=== PATIENT | male | born 1965 | race Caucasian/White ===

== ENCOUNTER 2021-01-27 17:19 | Inpatient (IN) | payer OTHER, SELFPAY ==
[2021-01-27] VITALS (25 sets, daily range): BP systolic 48–152; BP diastolic 12–108; PULSE 80–156; RESP 16–66; TEMP 36.6–39.2; O2SAT 66–100; BMI 29.1; BMI 28.3
[2021-01-27] MEDS: Etomidate 20 MG/10 ML Vial IV (17:27)
[2021-01-27] MEDS: Succinylcholine Chloride 200 MG/10 ML Vial 100 MG IV (17:27)
[2021-01-27] MEDS: Midazolam 5 MG/ML Syringe IV (17:34)
[2021-01-27] MEDS: Rocuronium Bromide 50 MG/5 ML Vial IV ×2 (17:35→19:15)
--- NOTE | 2021-01-27 17:50 | NURSING ---
NO OLD EKGS
--- NOTE | 2021-01-27 17:51 | EKG12_ITS ---
Test Reason : Blood Pressure : / mmHG Vent. Rate : 155 BPM Atrial Rate : 155 BPM P-R Int : 104 ms QRS Dur : 080 ms QT Int : 322 ms P-R-T Axes : 000 046 054 degrees QTc Int : 517 ms Sinus tachycardia with short MN Nonspecific ST and T wave abnormality Abnormal ECG Confirmed by LIBERTY WILSON, PEGGY ([id number]), commissioning editor FELIX MILES ([id number]) on 01/30/2021 9:35:55 AM Referred By: FABIO Confirmed By:PEGGY KOENIG MD
[2021-01-27 18:12] LABS: Absolute Lymphocyte Count 0.98 X10^3/uL (0.83-4.51); Absolute Neutrophil Count 22.5 X10^3/uL (2.0-7.7); Basophil# 0.09 X10^3/uL; Basophil% 0.4 % (0-1); Hematocrit 51.3 % (40-54); Hemoglobin 16.6 g/dL (13.0-16.5); Lymphocyte # 0.98 X10^3/ul (0.83-4.51); Lymphocyte % 3.9 % (19-41); Mean Corp Hgb Conc 32.4 g/dL (32-36); Mean Corpuscular Hgb 33.2 pg (27.0-32.0); Mean Corpuscular Volume 102.6 fL (80-94); Mean Platelet Vol. 10.4 fl (6.2-12.0); Monocyte# 0.86 X10^3/uL; Monocyte% 3.4 % (0-10); NRBC Flagged by Analyzer 0.4 % (0-5); Neutrophil % 89.5 % (47-70); POSITIVE COUNT YES; POSITIVE DIFFERENTIAL YES; Platelet Count 473 K/mm3 (150-450); RBC Distribution Width CV 12.3 % (11.6-14.6); White Blood Count 25.1 K/mm3 (4.4-11.0)
[2021-01-27 18:14] LABS: Differential Indicated SCAN CRITERIA MET
--- NOTE | 2021-01-27 18:15 | RAD_ITS ---
STUDY: X-RAY CHEST REASON FOR EXAM: Male, 55 years old. cough TECHNIQUE: AP COMPARISON: None. FINDINGS: Endotracheal tube present with the tip terminating 1.7 cm above the bing. Esophagogastric tube extends to the upper abdomen/stomach. Right jugular central venous catheter with tip overlying the cavoatrial junction. Patchy interstitial and groundglass opacities and multiple pulmonary lobes. There is no demonstrated pleural abnormality. Normal size heart. Normal mediastinum and nadia. Normal visualized pulmonary arteries. Normal visualized aortic arch and descending thoracic aorta. No acute bony process. There is no demonstrated abnormality of the visualized soft tissue structures of the upper abdomen. RAD/Chest 1 View (Portable) IMPRESSION: Support lines and tubes, as above. Multilobar pulmonary infiltrates. Electronically Signed: Nav Hernandez MD (Brooks) at 18:27 EDT , Service support ,
--- NOTE | 2021-01-27 18:16 | EDS_ITS ---
HPI History of Present Illness Chief Complaint: Shortness of Breath Informant: spouse/S.O. and EMS Narrative Narrative: 55-year-old male presenting to the emergency department in respiratory failure. He is reportedly on day 12 of COVID-19 infection. He tested positive at [facility] was called today for worsening shortness of breath. Patient cannot provide history. He is unvaccinated per his [facility] Medical History (Updated 01/27/21 @ 18:[address] Juanita Oseguera MD) High cholesterol HTN (hypertension) Non-smoker Obesity Home Medications aspirin [Aspir-Low] 81 mg PO DAILY 01/27/21 [History Last Taken Unknown] atorvastatin 40 mg PO DAILY 01/27/21 [History Last Taken 01/27/21] lisinopril 10 mg PO DAILY 01/27/21 [History Last Taken 01/27/21] Allergy/AdvReac Type Severity Reaction Status Date / Time No Known Allergies Allergy Verified 01/27/21 17:40 Family History (Updated 01/27/21 @ 18:[address] Juanita Oseguera MD) Mother Diabetes Father Diabetes Surgical History (Updated 01/27/21 @ 18:[address] Juanita Oseguera MD) S/P correction of deviated nasal septum Social History (Updated 01/27/21 @ 18:[address] Juanita Oseguera MD) household members: spouse Smoking Status: Never smoker alcohol intake: never substance use type: does not use ROS ROS ED ROS Narrative Review of systems is briefly obtained by the Review of Systems ROS Unobtainable: due to mental status Constitutional Constitutional ED: Reports chills, fever(s) and sweats Respiratory/Chest Respiratory/Chest: Reports cough, dyspnea and dyspnea on exertion Gastrointestinal Gastrointestinal: Reports diarrhea and nausea Musculoskeletal Musculoskeletal: Reports myalgias Neurologic Neurologic: Reports headache(s) EXAM Physical Exam Narrative Exam Narrative: Patient is in obvious respiratory failure. He is breathing approximately 60 times a minute and is 51% on a nonrebreather Const Vital Signs: 01/27/21 17:20 01/27/21 17:26 01/27/21 17:33 Temperature 97.8 F Temperature Source Temporal Pulse Rate 145 H 142 H Respiratory Rate 66 H 27 H Respiratory Depth Shallow Respiratory Pattern Tachypnea Blood Pressure 116/80 Blood Pressure Mean 92 Pulse Ox 66 81 Oxygen Delivery Method Non-Rebreather Mechanical Ventilator Oxygen Flow Rate (L/min) 15 01/27/21 17:40 01/27/21 18:18 Temperature 102.6 F H Temperature Source Core Pulse Rate 149 H 156 H Respiratory Rate 20 H 20 H Respiratory Depth Respiratory Pattern Tachypnea Blood Pressure 125/104 H 118/70 Blood Pressure Mean 111 86 Pulse Ox 79 82 Oxygen Delivery Method Mechanical Ventilator Mechanical Ventilator Oxygen Flow Rate (L/min) Positive well nourished, well developed and obese General Appearance ED: well developed Nutritional Appearance: obese HEENT Reports normocephalic, head/scalp atraumatic, TM's clear and dry mucous membranes Tympanic Membrane ED: Yes TM's clear Mouth ED: Yes dry mucous membranes Mouth: dry mucous membranes Eyes PERRL and EOMs intact bilaterally Neck no lymphadenopathy, supple and no JVD Resp clear to auscultation bilaterally Resp Narrative: Acute respiratory failure Effort and Inspection: retractions Cardio regular rate and no murmurs Rate: tachycardic GI normal to inspection, nondistended, normoactive bowel sounds and non-tender Palpation: soft Back/Spine no CVA tenderness and normal ROM Extremity General Extremety ED: Negative for edema General Extremity: Negative for edema Neuro oriented x3 and CN's II-XII intact bilaterally Sensorium / Orientation: alert Motor Exam: strength 5/5 throughout Psych Mood & Affect: tearful; Negative for depressed Skin no wounds Skin Narrative: Patient has mottling of his abdomen legs and arms MDM MDM MDM Narrative Medical decision making narrative: IV was established. Patient underwent rapid sequence intubation using etomidate and succinylcholine. An 8-0 endotracheal tu be was placed on the first attempt without any difficulty and secured in place at 24 cm. Bilateral breath sounds and good color change. An OG tube was placed. Patient received Versed and rocuronium. The right neck was prepped for central line placement. Using the modified cylinder technique a triple-lumen central line was placed on the first attempt without any difficulty and secured into place. My interpretation of the chest x-ray confirms adequate placement of the central line OG tube and endotracheal tube. Noted diffuse bilateral infiltrates. CTA of the chest demonstrates no pulmonary embolism but multifocal infiltrates. ABG shows a pH of 7.296 PCO2 41.8 PO2 52.2 bicarb 20.4. This is on FiO2 of 100% White count is 25.1 hemoglobin 16.6 platelet count is 473. Patient was started on propofol and fentanyl for sedation. Patient received IV Decadron and Lasix. Tylenol was given for fever. Patient became hypotensive as we titrated the propofol and it was stopped. I added Precedex and continued to increase the fentanyl. Case was discussed with hospitalist and Dr. Camacho. Patient is admitted into the ICU. Lab Data Labs: Laboratory Results - last 24 hr 01/27/21 01/27/21 01/27/21 17:25 17:25 17:25 WBC 25.1 H RBC 5.00 Hgb 16.6 H Hct 51.3 MCV 102.6 H MCH 33.2 H MCHC 32.4 RDW Std Deviation 47.0 H RDW Coeff of Blanca 12.3 Plt Count 473 H MPV 10.4 Immature Gran % (Auto) 2.800 H Neut % (Auto) 89.5 H Lymph % (Auto) 3.9 L [place] % (Auto) 3.4 Eos % (Auto) 0.0 Baso % (Auto) 0.4 Absolute Neuts (auto) 22.5 H Absolute Lymphs (auto) 0.98 Nucleated RBC % 0.4 Differential Comment SCANNED Diff Path Review August foll Fibrinogen 884 H D-Dimer Quant (PE/DVT) 6.85 H* Sodium 140 Potassium 3.9 Chloride 95 L Carbon Dioxide 17.0 L Anion Gap 28 H BUN 28 H Creatinine 2.23 H Estim Creat Clear Calc 39.56 Est GFR (MDRD) Af Amer 40 L Est GFR (MDRD) Non-Af 33 L BUN/Creatinine Ratio 12.6 Glucose 309 H Lactic Acid Calcium 9.6 Total Bilirubin 0.70 AST 63 H ALT TNP Alkaline Phosphatase 88 Lactate Dehydrogenase 915 H Total Creatine Kinase 173 Troponin I High Sens 374 H* C-React Prot Ext Range 167.00 H B-Natriuretic Peptide Total Protein 8.9 H Albumin 2.8 L Globulin 6.1 H Albumin/Globulin Ratio 0.5 L Procalcitonin 01/27/21 01/27/21 01/27/21 17:25 17:25 17:25 WBC RBC Hgb Hct MCV MCH MCHC RDW Std Deviation RDW Coeff of Blanca Plt Count MPV Immature Gran % (Auto) Neut % (Auto) Lymph % (Auto) [place] % (Auto) Eos % (Auto) Baso % (Auto) Absolute Neuts (auto) Absolute Lymphs (auto) Nucleated RBC % Differential Comment Diff Path Review Fibrinogen D-Dimer Quant (PE/DVT) Sodium Potassium Chloride Carbon Dioxide Anion Gap BUN Creatinine Estim Creat Clear Calc Est GFR (MDRD) Af Amer Est GFR (MDRD) Non-Af BUN/Creatinine Ratio Glucose Lactic Acid 14.7 H* Calcium Total Bilirubin AST ALT Alkaline Phosphatase Lactate Dehydrogenase Total Creatine Kinase Troponin I High Sens C-React Prot Ext Range B-Natriuretic Peptide 95.8 Total Protein Albumin Globulin Albumin/Globulin Ratio Procalcitonin 0.27 H ABG Data ABG results: ABG 01/27/21 18:21 Specimen Type ART Sample Site L Radial pH 7.30 L Bicarbonate Actual 20.4 L Total CO2 22 Base Excess -6 L O2 Saturation 83 L O2 % 100 ABG pCO2 41.8 ABG pO2 52 L Patrick Test Positive Respiration Rate 20 O2 Delivery Device Adult Vent Vent Mode AC Tidal Volume 450 POC PEEP 10 Radiography Diagnostic Testing: Clinical Impression(s) from Imaging Studies Chest X-Ray 01/27/21 18:15 IMPRESSION: Support lines and tubes, as above. Multilobar pulmonary infiltrates. Electronically Signed: Nav Hernandez MD (Brooks) at 18:27 EDT , Service support , EKG Initial EKG: Attestation: I personally reviewed and interpreted this EKG as follows: Comments: Sinus tachycardia with a ventricular rate of 155 bpm Discharge Plan [facility] Dis[facility] Date/Time: 01/27/21 20:15
[2021-01-27 18:26] LABS: Allen Test Positive; Base Excess -6 mmol/L (-2 to +2); Bicarbonate 20.4 mmol/L (22-26); Blood Gas Specimen Type ART; FI02 100; Mode AC; O2 Delivery Device Adult Vent; PEEP 10; PO2 52 mmHG (75-100); RR 20; SITE L Radial; SO2 83 % (95-99); Total Carbon Dioxide 22 mmol/L; Vt 450; pCO2 41.8 mmHg (35-45)
--- NOTE | 2021-01-27 18:26 | PCM.HP.STD ---
HPI - General General Date of Admission: 01/27/21 Date of Service: 01/27/21 Chief Complaint: COVID sxs x 12 days, worsening dyspnea, hypoxia. HPI Narrative The patient is a 55 y/o M w/ PMHx: Obesity, HTN, HLD who presents to the [facility] ED on 01/27/21 with history of onset Covid symptoms 12 days prior with fever, chills, significant diarrhea without any nausea, emesis or abdominal complaints, cough and shortness of breath as well as headache progressively worsening with diagnosis at [facility] on 01/16/2021. Patient is unvaccinated Covid status. Patient's was also ill and she notes this was prior to his onset and she has recovered. Immediately upon ED presentation he was significantly mottled and required emergent intubation. Work-up in the ED included T 97.8, heart rate initially 145, BP 116/80, respiratory rate 66, 66% on a nonrebreather with emergent intubation as noted, CBC with WC 25.1, hemoglobin 16.6, platelet 473 with left shift, pending fibrinogen, D-dimer, CPK, CRP, procalcitonin, LDH, cardiac troponin, BNP, as well as CMP upon evaluation, chest x-ray with significant bilateral pulmonary infiltrates, ABG being obtained post intubation, blood culture x2 pending per ED, EKG additionally being obtained. In the ED patient ministered Decadron 10 mg IV x1, etomidate, succinylcholine and Versed for intubation, Lasix 40 mg IV x1 per discussion with hospital service as well as initiation on propofol and fentanyl drip as well as dosing with rocuronium. [facility] Medical History (Updated 01/27/21 @ 18:[address] Juanita Oseguera MD) High cholesterol HTN (hypertension) Obesity Home Medications atorvastatin 40 mg PO DAILY 01/27/21 [History Last Taken Unknown] lisinopril 10 mg PO DAILY 01/27/21 [History Last Taken Unknown] Allergy/AdvReac Type Severity Reaction Status Date / Time No Known Allergies Allergy Verified 01/27/21 17:40 Family History (Updated 01/27/21 @ 18:[address] Juanita Oseguera MD) Mother Diabetes Father Diabetes Surgical History (Updated 01/27/21 @ 18:[address] Juanita Oseguera MD) S/P correction of deviated nasal septum Social History (Updated 01/27/21 @ 18:[address] Juanita Oseguera MD) household members: spouse Smoking Status: Never smoker alcohol intake: never substance use type: does not use ROS ROS Narrative Unable to obtain ROS secondary to intubated status however does report recent fever, chills, significant diarrhea, dyspnea, cough and headaches. Vital Signs Vital Signs Vital Signs: 01/27/21 17:20 01/27/21 17:26 01/27/21 17:33 Temperature 97.8 F Temperature Source Temporal Pulse Rate 145 H 142 H Respiratory Rate 66 H 27 H Respiratory Depth Shallow Respiratory Pattern Tachypnea Blood Pressure 116/80 Blood Pressure Mean 92 Pulse Ox 66 81 Oxygen Delivery Method Non-Rebreather Mechanical Ventilator Oxygen Flow Rate (L/min) 15 01/27/21 17:40 01/27/21 18:18 Temperature Temperature Source Pulse Rate 149 H 156 H Respiratory Rate 20 H 20 H Respiratory Depth Respiratory Pattern Tachypnea Blood Pressure 125/104 H Blood Pressure Mean 111 Pulse Ox 79 82 Oxygen Delivery Method Mechanical Ventilator Oxygen Flow Rate (L/min) Weight Weight: 203 lb 4.259 oz Body Mass Index (BMI) 29.1 Physical Exam Narrative Physical Examination: General: Patient sedated, intubated, central line being placed, still hypoxia despite recent intubation with oxygenation in the 80s. Skin: Normal color, normal turgor, no icterus, no cyanosis. HEENT: AT/NC, EOM unable to be assessed given intubated and sedated status, PERRLA, dry MM, intubated, no carotid bruits or JVD noted. Lungs: Bilateral symmetric rise, increased respiratory rate, still noted hypoxia with oxygenation in the 80s despite recent intubation, no rhonchi or wheezing. Heart: Tachycardic with regular rhythm; no gallop, rub audible. Abdomen: Soft, obese, NTTP, no obvious distention, significantly hyperactive bowel sounds, no HSM. Extremities: No cyanosis, clubbing, or edema. Neurological: Patient sedated, intubated, central line being placed, still hypoxia despite recent intubation with oxygenation in the 80s, cognitive function not baseline intact; pupils equally reactive to light and accommodation, cranial nerves unable to be assessed given sedated and intubated status, strength accordingly severely global decreased. Psychiatric: Affect appears flat, intubated, sedated no acute evidence of depressive or anxiety feelings. Results Lab / Micro Data Result Diagrams: 01/27/21 17:25 01/27/21 17:25 Labs: Laboratory Results - last 24 hr 01/27/21 17:25: WBC 25.1 H, RBC 5.00, Hgb 16.6 H, Hct 51.3, MCV 102.6 H, MCH 33.2 H, MCHC 32.4, RDW Std Deviation 47.0 H, RDW Coeff of Blanca 12.3, Plt Count 473 H, MPV 10.4, Immature Gran % (Auto) 2.800 H, Neut % (Auto) 89.5 H, Lymph % (Auto) 3.9 L, [place] % (Auto) 3.4, Eos % (Auto) 0.0, Baso % (Auto) 0.4, Absolute Neuts (auto) 22.5 H, Absolute Lymphs (auto) 0.98, Nucleated RBC % 0.4 Assessment & Plan Assessment/Plan (1) Acute respiratory failure with hypoxia: (2) Pneumonia due to COVID-19 virus: PLAN: The patient is a 55 y/o M w/ PMHx: Obesity, HTN, HLD who presents to the [facility] ED on 01/27/21 with history of onset Covid symptoms 12 days prior with fever, chills, significant diarrhea without any nausea, emesis or abdominal complaints, cough and shortness of breath as well as headache progressively worsening with diagnosis at [facility] on 01/16/2021 emergently intubated upon arrival in the ED. 1. Acute Hypoxic Respiratory Failure secondary to Acute Bilateral Pneumonia secondary to Acute Viral Syndrome, COVID-19: We will admit to the ICU, continue intubated and sedated status, will consult kettle skimmer as well as infectious disease for consideration of bar sitting up, awaiting pending ED labs as noted and may potentially need CTPA prior to transition to the ICU, patient not candidate for remdesivir given timeline, will continue IV Decadron x10 doses, additionally will obtain sputum culture, respiratory viral panel and urine antigens, continue supportive care including q 2 hour turning including prone given no prone bed availability and judicious hydration, closely monitor for worsening status for ARDS and multiorgan failure. Given significant leukocytosis will transiently placed on Zosyn and Vanco with MRSA screen but de-escalate if all labs and further assessment show no demonstration of superimposed bacterial infection. 2. Hypertension: Given patient lower BPs following sedation we will hold patient oral regimen, in the interim will have PRN hydralazine. 3. Hyperlipidemia: We will hold statin therapy is awaiting CMP and given acute presentation #1 may have elevated LFTs/bilirubin, add if appropriate. 4. Obesity: Weight loss and lifestyle changes encouraged. 5. DVT prophylaxis: SCDs, Lovenox. 6. CODE status: Patient HCPOA and living will are both not set up. Given severity of presentation with Covid pneumonia and acute hypoxic respiratory failure, discussed with patient his CODE status at length including difference between FULL code, DNR-CCA and DNR-CC status. Following discussions about the differences in these status, requested Full Code status. Advanced Care Planning Face to Face Time: 16 minutes. Charges/Coding Visit Charges Inpatient E&M: 72905 Init Hosp L3 Procedures Hospitalists Procedures: 73235 Advncd Care Plan 30 Min
[2021-01-27] MEDS: Propofol 10MG/Ml 1,000 MG/100 ML Bottle 5.5 MG CONT INF (18:30)
[2021-01-27 18:36] LABS: BNP,B-Type NATRIURETIC PEPTIDE 95.8 pg/mL (0-100)
[2021-01-27] MEDS: dexAMETHasone 10 MG/ML Vial IV (18:37)
[2021-01-27] MEDS: Furosemide 40 MG/4 ML Vial IV (18:37)
[2021-01-27 18:42] LABS: ALB/GLOB Ratio 0.5 RATIO (0.9-2.4); AST(SGOT) 63 U/L (15-37); Albumin, Serum 2.8 g/dL (3.2-5.0); Alkaline Phosphatase 88 U/L (45-117); Anion Gap 28 (5-15); BUN 28 mg/dL (7-18); BUN/Creat Ratio 12.6 RATIO (10-20); CPK Total, Creatine Kinase 173 U/L (39-308); Calcium,Total 9.6 mg/dL (8.5-10.1); Chloride 95 mmol/L (98-107); Creatinine, Serum 2.23 mg/dL (0.70-1.30); EST Glomerular Filtration Rate 33 mL/min (>60); Est Glom Filt Rate - Afr Amer 40 mL/min (>60); Estimated Creatinine Clearance 39.56 ml/min; Globulin 6.1 g/dL (2.2-4.2); Glucose 309 mg/dL (74-106); LDH 915 U/L (87-241); Potassium 3.9 mmol/L (3.5-5.1); Protein, Total 8.9 g/dL (6.4-8.2); Sodium Level 140 mmol/L (136-145)
[2021-01-27 18:43] LABS: Lactic Acid 14.7 mmol/L (0.4-1.9)
[2021-01-27] MEDS: Acetaminophen 650 MG Suppository RC (18:44)
[2021-01-27 18:45] LABS: Troponin-I HS 374 pg/mL (3.0-78.0)
--- NOTE | 2021-01-27 18:46 | CT_ITS ---
STUDY: CTA CHEST REASON FOR EXAM: Male, 55 years old. covid 19 Pulmonary embolism RADIATION DOSAGE (If Supplied By Facility): CTDIvol = ( 16.11 ) mGy, DLP = ( 482.17 ) mGycm TECHNIQUE: The examination was performed with the intravenous administration of IV 100mL Isovue-370. Post-processing of the angiographic images was performed, with multiplanar reformation and 3D reconstruction. Individualized dose optimization techniques were used for this CT. COMPARISON: None. FINDINGS: Endotracheal tube extends to just above the bing. Esophagogastric tube extends to the stomach. Right jugular central venous catheter extends to the upper right atrium. Normal enhancement of the main pulmonary artery and right and left pulmonary arteries. Normal enhancement of the bilateral peripheral pulmonary arteries. There is no demonstrated pulmonary embolism. Normal thoracic aorta and visualized great vessels. There is no demonstrated aortic dissection. Normal heart and pericardium. Reactive appearing lymph nodes of the mediastinum but no dominant vonnie mass. Normal hilar regions. Normal visualized trachea and bronchi. The lungs are well expanded. Multifocal infiltrates with features commonly reported with COVID pneumonia. Normal pleura. Normal chest wall structures. There are degenerative changes of thoracic spine. Normal visualized upper abdomen. CT/CTA Chest W/WO Contrast IMPRESSION: 1. No central or segmental pulmonary embolism. 2. Multifocal infiltrates with features commonly reported with COVID pneumonia. 3. Endotracheal tube terminates just above the bing, recommend retracting 1-2 cm. Electronically Signed: Nav Hernandez MD (Brooks) at 19:38 EDT , Service support ,
--- NOTE | 2021-01-27 18:50 | ED.RN ---
pt restless, propofol titrated per 5 min initially per md for optimal rass
[2021-01-27 18:58] LABS: Fibrinogen 884 mg/dl (203-444)
[2021-01-27 19:06] LABS: D-Dimer Quantitative (DVT/PE) 6.85 FEU/ug/m (0.27-0.49)
[2021-01-27 19:29] LABS: Differential Comment SCANNED
[2021-01-27 19:34] LABS: Magnesium 3.2 mg/dL (1.6-2.6); Phosphorus 7.5 mg/dL (2.5-4.9)
--- NOTE | 2021-01-27 20:12 | PCS.PANDOC ---
PANDEMIC DOCUMENTATION INITIATED: Date: 12/04/2020 Time: 190
[2021-01-27 20:48] LABS: Procalcitonin 0.27 ng/mL (0.00-0.09)
[2021-01-27] MEDS: 0.9% Normal Saline 1,000 ML 999 ML IV ×3 (21:25→23:27)
[2021-01-27 21:59] LABS: Reflex Lactate? Y
[2021-01-27 22:09] LABS: Bacteria 0 SEEN /hpf (None Seen); Mucous, Urine 0 SEEN /hpf (<or=2+); White Blood Cells 0 SEEN /hpf (0-5)
--- NOTE | 2021-01-27 22:23 | PCM.HOSP.N ---
Hospitalist Note Called secondary to marked hypotension. Patient had been on sedation and this was being shut off secondary to low blood pressures. Fluids were running at 60 cc/h. We will give appropriate fluid boluses given his sepsis. Blood cultures were obtained we will add sputum, UA and urine culture. My highest suspicion would be for a respiratory infection at this time. Given that his blood pressures are markedly low we have to will initiate Levophed so we can adequately sedate the patient. He is also having fevers of 103 via rectal temperature. A cooling blanket has been applied. He is already on empiric Vanco and Zosyn. Per discussion with Dr. Alcantara from infectious disease, 1 dose of tocilizumab is to be given at 8 mg/kg.
[2021-01-27 22:26] LABS: Color, Urine Yellow (Yellow); Glucose, Dipstick Normal (Normal); Ketone-Dipstick Negative (Negative); Leukocyte Esterase-Dipstick Negative /ul (Negative); Nitrite-Dipstick Negative (Negative); Occult Blood-Urine 250 /ul (Negative); Protein-Dipstick 100 mg/dl (Negative); Urine Bilirubin Dipstick Negative (Negative); Urine Clarity Sl. Cloudy (Clear); Urine Urobilinogen Normal (Normal)
[2021-01-27] MEDS: Chlorhexidine 15 ML PO (22:26)
[2021-01-27] MEDS: Enoxaparin 30 MG/0.3 ML Syringe SC (22:41)
[2021-01-27 22:45] LABS: Red Blood Cells-Urine 10-25 SEEN /hpf (0-5); Squamous Epithelial Cells - UA 0-5 SEEN /hpf (0-5)
[2021-01-27 23:19] LABS: M R Staph aureus DNA By PCR Negative (Negative); Probe Check PASS; Specimen Processing Control PASS
[2021-01-27] MEDS: 0.9% Normal Saline 1,000 ML 60 ML IV (23:56)
[2021-01-28] VITALS (48 sets, daily range): BP systolic 90–137; BP diastolic 61–106; PULSE 63–105; RESP 13–30; TEMP 37.5–38.4; O2SAT 90–98
[2021-01-28] MEDS: fentaNYL 100 MCG/2 ML Ampul 25 MCG IV (00:24)
[2021-01-28 01:04] LABS: Anion Gap 9 (5-15); BUN 29 mg/dL (7-18); BUN/Creat Ratio 22.1 RATIO (10-20); Calcium,Total 7.8 mg/dL (8.5-10.1); Chloride 109 mmol/L (98-107); Creatinine, Serum 1.31 mg/dL (0.70-1.30); EST Glomerular Filtration Rate 61 mL/min (>60); Est Glom Filt Rate - Afr Amer 73 mL/min (>60); Estimated Creatinine Clearance 67.33 ml/min; Glucose 305 mg/dL (74-106); Potassium 3.9 mmol/L (3.5-5.1); Sodium Level 141 mmol/L (136-145)
--- NOTE | 2021-01-28 01:15 | PCM.RX.CS ---
Consult Pharmacy has been consulted to manage selected antiobiotic: Vancomycin Type of Consult: New start Labs: Sodium 141 mmol/L (136-145) 01/28/21 00:35 Potassium 3.9 mmol/L (3.5-5.1) 01/28/21 00:35 Chloride 109 mmol/L (98-107) H 01/28/21 00:35 Carbon Dioxide 23.0 mmol/L (21.0-32.0) 01/28/21 00:35 Anion Gap 9 (5-15) 01/28/21 00:35 BUN 29 mg/dL (7-18) H 01/28/21 00:35 Creatinine 1.31 mg/dL (0.70-1.30) H 01/28/21 00:35 Est GFR (MDRD) Af Amer 73 mL/min (>60) 01/28/21 00:35 Est GFR (MDRD) Non-Af 61 mL/min (>60) 01/28/21 00:35 BUN/Creatinine Ratio 22.1 RATIO (10-20) H 01/28/21 00:35 Glucose 305 mg/dL (74-106) H 01/28/21 00:35 Microbiology: Microbiology 01/27/21 19:30 Mucosa - Nose Respiratory Panel (PCR) - Final 01/27/21 19:25 Urine Catheter - Catheter Legionella Antigen - Final 01/27/21 19:25 Urine Catheter - Catheter Streptococcus pneumoniae Antigen (M - Final Goal Trough: 15-20 mcg/mL Pharmacy Plan for Drug Dosing: Pharmacy Service will continue to monitor and adjust dosing as required. Medications Vancomycin HCl 1,250 mg/ (Sodium Chloride) 275 mls @ 167 mls/hr IV Q12H JOSELYN Discontinued Medications Vancomycin HCl 2,000 mg/ (Sodium Chloride) 540 mls @ 250 mls/hr IV X1 ONE Stop: 01/28/21 01:09 Last Admin: 01/28/21 00:30 Dose: 250 mls/hr Documented by: Follow-Up Labs: Trough Vancomycin Labs to be done on [date and time ordered]: 01/29 @ 1200
[2021-01-28 01:20] LABS: CPK Total, Creatine Kinase 299 U/L (39-308)
[2021-01-28 02:17] LABS: Lactic Acid 3.9 mmol/L (0.4-1.9)
[2021-01-28 04:48] LABS: Absolute Lymphocyte Count 1.41 X10^3/uL (0.83-4.51); Absolute Neutrophil Count 17.6 X10^3/uL (2.0-7.7); Basophil# 0.03 X10^3/uL; Basophil% 0.2 % (0-1); Hematocrit 39.3 % (40-54); Hemoglobin 13.2 g/dL (13.0-16.5); Lymphocyte # 1.41 X10^3/ul (0.83-4.51); Lymphocyte % 7.1 % (19-41); Mean Corp Hgb Conc 33.6 g/dL (32-36); Mean Corpuscular Hgb 33.1 pg (27.0-32.0); Mean Corpuscular Volume 98.5 fL (80-94); Mean Platelet Vol. 10.2 fl (6.2-12.0); Monocyte% 2.5 % (0-10); NRBC Flagged by Analyzer 0.3 % (0-5); Neutrophil # 17.58 X10^3/uL (2.7-7.7); Neutrophil % 88.2 % (47-70); Platelet Count 215 K/mm3 (150-450); RBC Distribution Width CV 12.3 % (11.6-14.6); RBC Distribution Width SD 44.9 fl (35.1-43.9); Red Blood Count 3.99 M/mm3 (4.6-6.2); White Blood Count 19.9 K/mm3 (4.4-11.0)
[2021-01-28 05:26] LABS: ALB/GLOB Ratio 0.4 RATIO (0.9-2.4); AST(SGOT) 303 U/L (15-37); Alanine Aminotransfer ALT/SGPT 140 U/L (16-61); Albumin, Serum 1.9 g/dL (3.2-5.0); Alkaline Phosphatase 60 U/L (45-117); Anion Gap 9 (5-15); BUN 24 mg/dL (7-18); Calcium,Total 7.7 mg/dL (8.5-10.1); Chloride 108 mmol/L (98-107); Creatinine, Serum 1.09 mg/dL (0.70-1.30); EST Glomerular Filtration Rate 75 mL/min (>60); Est Glom Filt Rate - Afr Amer 91 mL/min (>60); Estimated Creatinine Clearance 80.93 ml/min; Globulin 4.8 g/dL (2.2-4.2); Glucose 322 mg/dL (74-106); Potassium 4.4 mmol/L (3.5-5.1); Protein, Total 6.7 g/dL (6.4-8.2); Sodium Level 141 mmol/L (136-145)
--- NOTE | 2021-01-28 06:55 | CON.PCM.CC_ITS ---
Assessment & Plan Assessment/Plan (1) Acute respiratory failure with hypoxia: (2) Pneumonia due to COVID-19 virus: PLAN: RECOMMENDATIONS: 1. Continue patient on assist control mode mechanical ventilation. Wean FiO2/PEEP for saturations greater than 90%. 2. Attempt to maintain plateau pressures less than 30. 3. Continue empiric antimicrobials, while awaiting sputum culture results. 4. Continue Decadron to complete 10-day treatment course. 5. Continue twice daily Lovenox as ordered. 6. Stop continuous IV fluids. 7. Obtain sputum and send for culture. 8. Continue appropriate GI prophylaxis. Okay to initiate tube feeds from my perspective. 9. Obtain infectious diseases consultation. IMPRESSIONS: 1. Acute hypoxemic respiratory failure secondary to COVID-19 pneumonia The patient presented to the hospital with progressive Covid symptoms after having been initially diagnosed at the end of December. He is therefore out side of the window for remdesivir. CTA chest showed no evidence for pulmonary embolism. The patient was emergently intubated in the emergency department. He will be continued on assist control mode mechanical ventilation. FiO2 and PEEP will be weaned to maintain saturations at or above 90%. The patient will be continued on empiric antimicrobials while awaiting sputum culture results. Decadron and prophylactic Lovenox will also be continued. Diuretic therapy can be utilized as needed to maintain euvolemic state. Tube feeds can be initiated today from my perspective. 2. Acute kidney injury Likely prerenal in etiology. The patient did initially respond to fluid resuscitation. However, supplemental IV fluids have been discontinued at this time. Creatinine has subsequently normalized. We will continue to monitor urine output. 3. Obesity/hypertension/hyperlipidemia Complicates care, management, recovery and prognosis. Continue home medications as indicated. Okay to initiate tube feeds. TIME: 40 minutes of critical care time, independent of procedures, was spent addressing the patient's acute hypoxemic respiratory failure secondary to COVID- 19 pneumonia, acute kidney injury, review of all data and collaboration with the care team. ([id number]) HPI Consult Data Date of Consult: 01/28/21 HPI Narrative Reason for Consultation: Acute hypoxemic respiratory failure secondary to COVID- 19 pneumonia HPI Narrative: The patient is a 55-year-old male, with a history as outlined below, who presented to the emergency department via EMS on January 27 with dyspnea, fevers, chills and cough. The patient was initially diagnosed with COVID-19 on January 16. Symptom onset was sometime around January 15. The patient is unvaccinated against coronavirus. His was recently ill as well. On presentation to the emergency department, the patient was noted to be febrile, tachycardic and tachypneic. He was notably hypoxemic as well. Laboratory evaluation revealed an elevated white blood cell count to 25,000. Platelet count was elevated at 473,000. D-dimer was elevated at 6.85. Chemistry profile was notable for a chloride of 95, bicarbonate of 17, anion gap of 28 and creatinine of 2.23. Lactate was elevated at 14.7. Troponin was elevated at 374. CRP was increased at 167. Procalcitonin was noted to be 0.27. Urinalysis was unremarkable. MRSA screen was negative. The patient was intubated upon arrival to the ED. A central venous catheter was also placed. ABG post intubation revealed a pH of 7.3 with a PCO2 of 42 and PO2 of 52. CTA chest showed no evidence for pulmonary embolism. Bilateral multifocal infiltrates were noted. The patient was subsequently admitted to the medical intensive care unit for further management. Overnight, there was some issue with finding the most appropriate sedation regimen for the patient. As a consequence of the sedatives being utilized, the patient became hypotensive and did require vasopressor support up until early this morning. He has since been weaned off of Levophed completely. The patient's propofol and Precedex have been discontinued. He is currently only on a low-dose amount of IV fentanyl. He has been started on Decadron and prophylactic Lovenox. The patient was also initiated on broad-spectrum antimicrobials. He is currently documented to be overall net +2.5 L for the hospital admission. Creatinine has normalized this morning. [facility] Medical History (Updated 01/27/21 @ 18:[address] Juanita Oseguera MD) High cholesterol HTN (hypertension) Non-smoker Obesity Home Medications aspirin [Aspir-Low] 81 mg PO DAILY 01/27/21 [History Last Taken Unknown] atorvastatin 40 mg PO DAILY 01/27/21 [History Last Taken 01/27/21] lisinopril 10 mg PO DAILY 01/27/21 [History Last Taken 01/27/21] Allergy/AdvReac Type Severity Reaction Status Date / Time No Known Allergies Allergy Verified 01/27/21 17:40 Family History (Updated 01/27/21 @ 18:[address] Juanita Oseguera MD) Mother Diabetes Father Diabetes Surgical History (Updated 01/27/21 @ 18:[address] Juanita Oseguera MD) S/P correction of deviated nasal septum Social History (Updated 01/27/21 @ 18:[address] Juanita Oseguera MD) household members: spouse Smoking Status: Never smoker alcohol intake: never substance use type: does not use ROS Review of Systems ROS Unobtainable: due to endotracheal tube Physical Exam Const no apparent distress General Appearance: ill appearing, intubated and patient mechanically ventilated Nutritional Appearance: obese HEENT normocephalic and head/scalp atraumatic Mouth: endotracheal tube in place and OG tube in place Eyes PERRL, EOMs intact bilaterally and conjunctivae normal Neck supple General: trachea midline and CVC in place Chest inspection of chest normal Resp Auscultation: diminished lung sounds; Negative for rales, rhonchi or wheezes Cardio regular rate and regular rhythm GI normal to inspection, nondistended, normoactive bowel sounds Extremity no clubbing, cyanosis or edema Skin no rashes or lesions noted Neuro Sensorium / Orientation: sedated on vent Lab / Micro Data Result Diagrams: 01/28/21 04:35 01/28/21 04:35 Labs: Laboratory Results - last 24 hr 01/27/21 17:25: WBC 25.1 H, RBC 5.00, Hgb 16.6 H, Hct 51.3, MCV 102.6 H, MCH 33.2 H, MCHC 32.4, RDW Std Deviation 47.0 H, RDW Coeff of Blanca 12.3, Plt Count 473 H, MPV 10.4, Immature Gran % (Auto) 2.800 H, Neut % (Auto) 89.5 H, Lymph % (Auto) 3.9 L, [place] % (Auto) 3.4, Eos % (Auto) 0.0, Baso % (Auto) 0.4, Absolute Neuts (auto) 22.5 H, Absolute Lymphs (auto) 0.98, Nucleated RBC % 0.4, Differential Comment SCANNED, Diff Path Review August01/27/21 17:25: Fibrinogen 884 H, D-Dimer Quant (PE/DVT) 6.85 H* 01/27/21 17:25: Sodium 140, Potassium 3.9, Chloride 95 L, Carbon Dioxide 17.0 L, Anion Gap 28 H, BUN 28 H, Creatinine 2.23 H, Estim Creat Clear Calc 39.56, Est GFR (MDRD) Af Amer 40 L, Est GFR (MDRD) Non-Af 33 L, BUN/Creatinine Ratio 12.6, Glucose 309 H, Calcium 9.6, Total Bilirubin 0.70, AST 63 H, ALT TNP, Alkaline Phosphatase 88, Lactate Dehydrogenase 915 H, Total Creatine Kinase 173, Troponin I High Sens 374 H*, C-React Prot Ext Range 167.00 H, Total Protein 8.9 H, Albumin 2.8 L, Globulin 6.1 H, Albumin/Globulin Ratio 0.5 L 01/27/21 17:25: Lactic Acid 14.7 H* 01/27/21 17:25: B-Natriuretic Peptide 95.8 01/27/21 17:25: Procalcitonin 0.27 H 01/27/21 18:43: Phosphorus 7.5 H, Magnesium 3.2 H 01/27/21 20:44: MRSA (PCR) Negative 01/27/21 20:44: Lactic Acid 3.9 H* 01/27/21 21:40: Urine Color Yellow, Urine Clarity Sl. Cloudy, Urine pH 6.0, Ur Specific [place] 1.010, Urine Protein 100 H, Urine Glucose (UA) Normal, Urine Ketones Negative, Urine Occult Blood 250 H, Urine Nitrite Negative, Urine Bilirubin Negative, Urine Urobilinogen Normal, Ur Leukocyte Esterase Negative, Urine RBC 10-25 SEEN, Urine WBC 0 SEEN, Ur Squamous Epith Cells 0-5 SEEN, Urine Bacteria 0 SEEN, Urine Mucus 0 SEEN 01/28/21 00:35: Sodium 141, Potassium 3.9, Chloride 109 H, Carbon Dioxide 23.0, Anion Gap 9, BUN 29 H, Creatinine 1.31 H, Estim Creat Clear Calc 67.33, Est GFR (MDRD) Af Amer 73, Est GFR (MDRD) Non-Af 61, BUN/Creatinine Ratio 22.1 H, Glucose 305 H, Calcium 7.8 L 01/28/21 00:35: Total Creatine Kinase 299 01/28/21 04:35: WBC 19.9 H, RBC 3.99 L, Hgb 13.2, Hct 39.3 L, MCV 98.5 H, MCH 33.1 H, MCHC 33.6, RDW Std Deviation 44.9 H, RDW Coeff of Blanca 12.3, Plt Count 215, MPV 10.2, Immature Gran % (Auto) 2.000 H, Neut % (Auto) 88.2 H, Lymph % (Auto) 7.1 L, [place] % (Auto) 2.5, Eos % (Auto) 0.0, Baso % (Auto) 0.2, Absolute Neuts (auto) 17.6 H, Absolute Lymphs (auto) 1.41, Nucleated RBC % 0.3 01/28/21 04:35: Sodium 141, Potassium 4.4, Chloride 108 H, Carbon Dioxide 24.0, Anion Gap 9, BUN 24 H, Creatinine 1.09, Estim Creat Clear Calc 80.93, Est GFR (MDRD) Af Amer 91, Est GFR (MDRD) Non-Af 75, BUN/Creatinine Ratio 22.0 H, Glucose 322 H, Calcium 7.7 L, Total Bilirubin 1.00, AST 303 H, ALT 140 H, Al kaline Phosphatase 60, Total Protein 6.7, Albumin 1.9 L, Globulin 4.8 H, Albumin/Globulin Ratio 0.4 L Micro: Microbiology 01/27/21 19:30 Mucosa - Nose Respiratory Panel (PCR) - Final 01/27/21 19:25 Urine Catheter - Catheter Legionella Antigen - Final 01/27/21 19:25 Urine Catheter - Catheter Streptococcus pneumoniae Antigen (M - Final ABG Data ABG results: ABG 01/27/21 18:21 Specimen Type ART Sample Site L Radial pH 7.30 L Bicarbonate Actual 20.4 L Total CO2 22 Base Excess -6 L O2 Saturation 83 L O2 % 100 ABG pCO2 41.8 ABG pO2 52 L Patrick Test Positive Respiration Rate 20 O2 Delivery Device Adult Vent Vent Mode AC Tidal Volume 450 POC PEEP 10 Radiology Impression Chest X-Ray 01/27/21 18:15 IMPRESSION: Support lines and tubes, as above. Multilobar pulmonary infiltrates. Electronically Signed: Nav Hernandez MD ([place]) at 18:27 EDT , Service support , Chest CTA 01/27/21 18:46 IMPRESSION: 1. No central or segmental pulmonary embolism. 2. Multifocal infiltrates with features commonly reported with COVID pneumonia. 3. Endotracheal tube terminates just above the bing, recommend retracting 1-2 cm. Electronically Signed: Nav Hernandez MD ([place]) at 19:38 EDT , Service support , Charges/Coding Procedures Hospitalists Procedures: [id number] [facility] 1st Hr
--- NOTE | 2021-01-28 07:47 | PN.HOSP_ITS ---
Subjective Subjective Patient is a 55-year-old gentleman unvaccinated against COVID-19 who presented with progressive shortness of breath. Patient has been diagnosed with COVID-19 pneumonia on 01/17/2021 symptoms started on 01/16/2021. An assessment of acute hypoxic respiratory failure made admitted to intensive care unit for subsequent management Objective Data Objective Data Vital Signs: Vital Signs Temp Pulse Resp BP Pulse Ox 99.9 F H 70 21 H 123/79 H 90 01/28/21 07:00 01/28/21 07:32 01/28/21 07:32 01/28/21 07:00 01/28/21 07:32 Oxygen Flow Rate (L/min) 15 Oxygen Delivery Method Mechanical Ventilator Weight: 89.902 kg Body Mass Index (BMI) 28.3 Intake & Output: Intake and Output for Last 24 Hours 01/26/21 01/27/21 01/28/21 23:59 23:59 23:59 Intake Total 2122.32 / 2130.14 1953.41 / 1953.41 Output Total 1000 / 1100 550 / 550 Balance 1122.32 / 1030.14 1403.41 / 1403.41 Lab / Micro Data Result Diagrams: 01/28/21 04:35 01/28/21 04:35 Labs: Laboratory Results - last 24 hr 01/27/21 17:25: WBC 25.1 H, RBC 5.00, Hgb 16.6 H, Hct 51.3, MCV 102.6 H, MCH 33.2 H, MCHC 32.4, RDW Std Deviation 47.0 H, RDW Coeff of Blanca 12.3, Plt Count 473 H, MPV 10.4, Immature Gran % (Auto) 2.800 H, Neut % (Auto) 89.5 H, Lymph % (Auto) 3.9 L, [place] % (Auto) 3.4, Eos % (Auto) 0.0, Baso % (Auto) 0.4, Absolute Neuts (auto) 22.5 H, Absolute Lymphs (auto) 0.98, Nucleated RBC % 0.4, Differential Comment SCANNED, Diff Path Review August01/27/21 17:25: Fibrinogen 884 H, D-Dimer Quant (PE/DVT) 6.85 H* 01/27/21 17:25: Sodium 140, Potassium 3.9, Chloride 95 L, Carbon Dioxide 17.0 L, Anion Gap 28 H, BUN 28 H, Creatinine 2.23 H, Estim Creat Clear Calc 39.56, Est GFR (MDRD) Af Amer 40 L, Est GFR (MDRD) Non-Af 33 L, BUN/Creatinine Ratio 12.6, Glucose 309 H, Calcium 9.6, Total Bilirubin 0.70, AST 63 H, ALT TNP, Alkaline Phosphatase 88, Lactate Dehydrogenase 915 H, Total Creatine Kinase 173, Troponin I High Sens 374 H*, C-React Prot Ext Range 167.00 H, Total Protein 8.9 H, Albumin 2.8 L, Globulin 6.1 H, Albumin/Globulin Ratio 0.5 L 01/27/21 17:25: Lactic Acid 14.7 H* 01/27/21 17:25: B-Natriuretic Peptide 95.8 01/27/21 17:25: Procalcitonin 0.27 H 01/27/21 18:43: Phosphorus 7.5 H, Magnesium 3.2 H 01/27/21 20:44: MRSA (PCR) Negative 01/27/21 20:44: Lactic Acid 3.9 H* 01/27/21 21:40: Urine Color Yellow, Urine Clarity Sl. Cloudy, Urine pH 6.0, Ur Specific [place] 1.010, Urine Protein 100 H, Urine Glucose (UA) Normal, Urine Ketones Negative, Urine Occult Blood 250 H, Urine Nitrite Negative, Urine Bilirubin Negative, Urine Urobilinogen Normal, Ur Leukocyte Esterase Negative, Urine RBC 10-25 SEEN, Urine WBC 0 SEEN, Ur Squamous Epith Cells 0-5 SEEN, Urine Bacteria 0 SEEN, Urine Mucus 0 SEEN 01/28/21 00:35: Sodium 141, Potassium 3.9, Chloride 109 H, Carbon Dioxide 23.0, Anion Gap 9, BUN 29 H, Creatinine 1.31 H, Estim Creat Clear Calc 67.33, Est GFR (MDRD) Af Amer 73, Est GFR (MDRD) Non-Af 61, BUN/Creatinine Ratio 22.1 H, Glucose 305 H, Calcium 7.8 L 01/28/21 00:35: Total Creatine Kinase 299 01/28/21 04:35: WBC 19.9 H, RBC 3.99 L, Hgb 13.2, Hct 39.3 L, MCV 98.5 H, MCH 33.1 H, MCHC 33.6, RDW Std Deviation 44.9 H, RDW Coeff of Blanca 12.3, Plt Count 215, MPV 10.2, Immature Gran % (Auto) 2.000 H, Neut % (Auto) 88.2 H, Lymph % (Auto) 7.1 L, [place] % (Auto) 2.5, Eos % (Auto) 0.0, Baso % (Auto) 0.2, Absolute Neuts (auto) 17.6 H, Absolute Lymphs (auto) 1.41, Nucleated RBC % 0.3 01/28/21 04:35: Sodium 141, Potassium 4.4, Chloride 108 H, Carbon Dioxide 24.0, Anion Gap 9, BUN 24 H, Creatinine 1.09, Estim Creat Clear Calc 80.93, Est GFR (MDRD) Af Amer 91, Est GFR (MDRD) Non-Af 75, BUN/Creatinine Ratio 22.0 H, Glucose 322 H, Calcium 7.7 L, Total Bilirubin 1.00, AST 303 H, ALT 140 H, Alkaline Phosphatase 60, Total Protein 6.7, Albumin 1.9 L, Globulin 4.8 H, Albumin/Globulin Ratio 0.4 L Micro: Microbiology 01/27/21 19:30 Mucosa - Nose Respiratory Panel (PCR) - Final 01/27/21 19:25 Urine Catheter - Catheter Legionella Antigen - Final 01/27/21 19:25 Urine Catheter - Catheter Streptococcus pneumoniae Antigen (M - Final ABG Data ABG results: ABG 01/27/21 18:21 Specimen Type ART Sample Site L Radial pH 7.30 L Bicarbonate Actual 20.4 L Total CO2 22 Base Excess -6 L O2 Saturation 83 L O2 % 100 ABG pCO2 41.8 ABG pO2 52 L Patrick Test Positive Respiration Rate 20 O2 Delivery Device Adult Vent Vent Mode AC Tidal Volume 450 POC PEEP 10 Radiography Diagnostic Testing: Radiology Impression Chest X-Ray 01/27/21 18:15 IMPRESSION: Support lines and tubes, as above. Multilobar pulmonary infiltrates. Electronically Signed: Nav Hernandez MD ([place]) at 18:27 EDT , Service support , Chest CTA 01/27/21 18:46 IMPRESSION: 1. No central or segmental pulmonary embolism. 2. Multifocal infiltrates with features commonly reported with COVID pneumonia. 3. Endotracheal tube terminates just above the bing, recommend retracting 1-2 cm. Electronically Signed: Nav Hernandez MD ([place]) at 19:38 EDT , Service support , Physical Exam Narrative GENERAL: Awake on the vent HEENT: Atraumatic; EYES; Anicteric, Normal Conjunctiva NECK; supple, normal thyroid, RESPIRATORY: Diminished to auscultation CARDIOVASCULAR: Regular S1 S2, GI: soft, normoactive bowel sounds, : No Renal angle tenderness; EXTREMITIES: No edema, no clubbing, MUSCULOSKELETAL: no muscle waisting NEURO: Awake; no lateralizing signs. SKIN: No Rash PSYCH; Flat affect Assessment & Plan Assessment/Plan (1) Acute respiratory failure with hypoxia: (2) Pneumonia due to COVID-19 virus: PLAN: Patient is a 55-year-old gentleman unvaccinated against COVID-19 who presented with progressive shortness of breath. Patient has been diagnosed with COVID-19 pneumonia on 01/17/2021 symptoms started on 01/16/2021. An assessment of acute hypoxic respiratory failure made admitted to intensive care unit for subsequent management 1. Acute hypoxic respiratory failure ?Secondary to SARS-CoV-2 pneumonia. Patient admitted to the intensive care unit placed on ventilator. Patient was outside the window for remdesivir. Was started on Decadron. Did receive a dose of Tocilizumab Severe sepsis ?Secondary to SARS-CoV-2 pneumonia with suspected superimposed bacterial pneumonia. Patient did receive IV fluid resuscitation and subsequently started on broad-spectrum antibiotic therapy with Zosyn and vancomycin with consultation placed to ID 3. Essential hypertension ?Patient blood pressure on the low side antihypertensives on hold 4. Dyslipidemia ?Patient is on atorvastatin 40 mg daily continue 5. DVT prophylaxis ?SC Lovenox Charges/Coding Visit Charges Inpatient E&M: 13361 Subs Hosp L3
[2021-01-28] MEDS: Chlorhexidine 15 ML PO ×2 (11:15→20:58)
[2021-01-28] MEDS: dexAMETHasone 4 MG/ML Vial 6 MG IV (11:15)
[2021-01-28] MEDS: Enoxaparin 30 MG/0.3 ML Syringe SC ×2 (11:15→20:58)
[2021-01-28] MEDS: Insulin Lispro 100 UNIT/ML INSULN.PEN SC ×3 (11:16→23:58)
[2021-01-28] MEDS: Vital AF 1.2 Cal Liquid 1,000 ML 75 ML GT (11:32)
[2021-01-28 15:01] LABS: Bedside Glucose 234 mg/dL (70-110)
[2021-01-28 20:11] LABS: Bedside Glucose 268 mg/dL (70-110)
[2021-01-29] VITALS (34 sets, daily range): BP systolic 108–159; BP diastolic 56–96; PULSE 64–102; RESP 15–28; TEMP 37.1–37.6; O2SAT 88–97
[2021-01-29 05:44] LABS: Absolute Lymphocyte Count 0.86 X10^3/uL (0.83-4.51); Absolute Neutrophil Count 16.2 X10^3/uL (2.0-7.7); Basophil# 0.02 X10^3/uL; Basophil% 0.1 % (0-1); Hematocrit 37.4 % (40-54); Hemoglobin 12.6 g/dL (13.0-16.5); Lymphocyte # 0.86 X10^3/ul (0.83-4.51); Lymphocyte % 4.9 % (19-41); Mean Corp Hgb Conc 33.7 g/dL (32-36); Mean Corpuscular Hgb 33.4 pg (27.0-32.0); Mean Corpuscular Volume 99.2 fL (80-94); Monocyte# 0.34 X10^3/uL; Monocyte% 1.9 % (0-10); NRBC Flagged by Analyzer 0.6 % (0-5); Neutrophil # 16.17 X10^3/uL (2.7-7.7); Neutrophil % 91.8 % (47-70); Platelet Count 219 K/mm3 (150-450); RBC Distribution Width CV 12.3 % (11.6-14.6); RBC Distribution Width SD 44.8 fl (35.1-43.9); Red Blood Count 3.77 M/mm3 (4.6-6.2); White Blood Count 17.6 K/mm3 (4.4-11.0)
[2021-01-29 06:09] LABS: AST(SGOT) 175 U/L (15-37); Alanine Aminotransfer ALT/SGPT 191 U/L (16-61); Alkaline Phosphatase 67 U/L (45-117); Bilirubin, Direct 0.17 mg/dL (0.00-0.30); Globulin 4.4 g/dL (2.2-4.2); Protein, Total 6.4 g/dL (6.4-8.2)
[2021-01-29 06:13] LABS: Anion Gap 5 (5-15); BUN 21 mg/dL (7-18); BUN/Creat Ratio 23.8 RATIO (10-20); Calcium,Total 8.2 mg/dL (8.5-10.1); Chloride 110 mmol/L (98-107); Creatinine, Serum 0.88 mg/dL (0.70-1.30); EST Glomerular Filtration Rate 96 mL/min (>60); Est Glom Filt Rate - Afr Amer 116 mL/min (>60); Estimated Creatinine Clearance 100.24 ml/min; Glucose 289 mg/dL (74-106); Potassium 3.8 mmol/L (3.5-5.1); Sodium Level 144 mmol/L (136-145)
[2021-01-29 06:51] LABS: Bedside Glucose 245 mg/dL (70-110)
[2021-01-29] MEDS: Insulin Lispro 100 UNIT/ML INSULN.PEN SC ×3 (06:51→17:48)
[2021-01-29 08:01] LABS: Bedside Glucose 289 mg/dL (70-110)
--- NOTE | 2021-01-29 10:38 | PN.CC_ITS ---
Assessment & Plan Assessment/Plan (1) Acute respiratory failure with hypoxia: (2) Pneumonia due to COVID-19 virus: PLAN: RECOMMENDATIONS: 1. Continue patient on assist control mode mechanical ventilation. Wean FiO2/PEEP for saturations greater than 90%. 2. Attempt to maintain plateau pressures less than 30. 3. Possibly discontinue antimicrobials with culture negative at 48 hours from blood 4. Continue Decadron to complete 10-day treatment course. 5. Continue twice daily Lovenox as ordered. 6. Challenge with diuretics, increase Lantus 7. Continue appropriate GI prophylaxis. Okay to initiate tube feeds from my perspective. 8. Unclear if patient qualifies for baricitinib given elevated LFTs IMPRESSIONS: 1. Acute hypoxemic respiratory failure secondary to COVID-19 pneumonia The patient presented to the hospital with progressive Covid symptoms after having been initially diagnosed at the end of December. He is therefore outside of the window for remdesivir. CTA chest showed no evidence for pulmonary embolism. The patient was emergently intubated in the emergency department. He will be continued on assist control mode mechanical ventilation. FiO2 and PEEP will be weaned to maintain saturations at or above 90%. The patient will be continued on empiric antimicrobials while awaiting blood culture results. Decadron and prophylactic Lovenox will also be continued. Diuretic therapy can be utilized as needed to maintain euvolemic state. Tube feeds can be advanced today from my perspective. 2. Acute kidney injury Likely prerenal in etiology. The patient did initially respond to fluid resuscitation. However, supplemental IV fluids have been discontinued at this time. Creatinine has subsequently normalized. We will continue to monitor urine output. 3. Obesity/hypertension/hyperlipidemia Complicates care, management, recovery and prognosis. Continue home medications as indicated. Okay to initiate tube feeds. TIME: 33 minutes of critical care time, independent of procedures, was spent addressing the patient's acute hypoxemic respiratory failure secondary to COVID- 19 pneumonia, acute kidney injury, review of all data and collaboration with the care team. (7:30 AM to 8:30 AM) Subjective Subjective Patient did okay overnight. Patient's oxygenation did improve, so PEEP was able to be decreased. Objective Data Objective Data Vital Signs: Vital Signs Temp Pulse Resp BP Pulse Ox 37.4 C H 79 24 H 130/73 H 94 01/29/21 08:00 01/29/21 09:00 01/29/21 09:00 01/29/21 09:00 01/29/21 09:00 Oxygen Flow Rate (L/min) 15 Oxygen Delivery Method Mechanical Ventilator Weight: 94.801 kg Body Mass Index (BMI) 28.3 Intake & Output: Intake and Output for Last 24 Hours 01/27/21 01/28/21 01/29/21 23:59 23:59 23:59 Intake Total 2122.32 / 2130.14 3098.62 / 3103.62 381.00 / 381.00 Output Total 1000 / 1100 1420 / 1470 495 / 495 Balance 1122.32 / 1030.14 1678.62 / 1633.62 -114.00 / -114.00 Lab / Micro Data Result Diagrams: 01/29/21 05:20 01/29/21 05:20 Labs: Laboratory Results - last 24 hr 01/28/21 11:13: POC Glucose 234 H 01/28/21 17:36: POC Glucose 268 H 01/28/21 23:56: POC Glucose 245 H 01/29/21 05:20: WBC 17.6 H, RBC 3.77 L, Hgb 12.6 L, Hct 37.4 L, MCV 99.2 H, MCH 33.4 H, MCHC 33.7, RDW Std Deviation 44.8 H, RDW Coeff of Blanca 12.3, Plt Count 219, MPV 11.0, Immature Gran % (Auto) 1.300 H, Neut % (Auto) 91.8 H, Lymph % (Auto) 4.9 L, [place] % (Auto) 1.9, Eos % (Auto) 0.0, Baso % (Auto) 0.1, Absolute Neuts (auto) 16.2 H, Absolute Lymphs (auto) 0.86, Nucleated RBC % 0.6 01/29/21 05:20: Sodium 144, Potassium 3.8, Chloride 110 H, Carbon Dioxide 29.0, Anion Gap 5, BUN 21 H, Creatinine 0.88, Estim Creat Clear Calc 100.24, Est GFR (MDRD) Af Amer 116, Est GFR (MDRD) Non-Af 96, BUN/Creatinine Ratio 23.8 H, Glucose 289 H, Calcium 8.2 L 01/29/21 05:20: Total Bilirubin 0.50, Direct Bilirubin 0.17, AST 175 H, ALT 191 H, Alkaline Phosphatase 67, Total Protein 6.4, Albumin 2.0 L, Globulin 4.4 H 01/29/21 06:51: POC Glucose 289 H Micro: Microbiology 01/28/21 08:20 Sputum, Induced/Lukens Gram Stain - Final 01/28/21 08:20 Sputum, Induced/Lukens Respiratory Culture - Preliminary Appears to be normal respiratory eulalia. Further studies to follow. 01/27/21 21:40 Urine Catheter - Catheter Urine Culture - Preliminary Culture exhibits no growth. 01/27/21 19:30 Mucosa - Nose Respiratory Panel (PCR) - Final 01/27/21 19:25 Urine Catheter - Catheter Legionella Antigen - Final 01/27/21 19:25 Urine Catheter - Catheter Streptococcus pneumoniae Antigen (M - Final Physical Exam Const no apparent distress Constitutional Narrative: Good vent synchrony. RASS -2. General Appearance: ill appearing, intubated and patient mechanically ventilated Nutritional Appearance: obese HEENT normocephalic and head/scalp atraumatic Mouth: endotracheal tube in place and OG tube in place Eyes PERRL, EOMs intact bilaterally and conjunctivae normal Neck supple General: trachea midline and CVC in place Chest inspection of chest normal Chest: symmetrical chest wall rise; Negative for crepitus Resp Auscultation: diminished lung sounds; Negative for rales, rhonchi or wheezes Cardio regular rate and regular rhythm GI normal to inspection, nondistended, normoactive bowel sounds Extremity no clubbing, cyanosis or edema Skin no rashes or lesions noted Neuro Sensorium / Orientation: sedated on vent Charges/Coding Procedures Hospitalists Procedures: [id number] [facility] 1st Hr
[2021-01-29] MEDS: Potassium Chloride Oral Soln 20 MEQ/15 ML UDC 40 MEQ PO (10:45)
[2021-01-29] MEDS: Ascorbic Acid 500 MG Tablet 1000 MG PO (10:46)
[2021-01-29] MEDS: Enoxaparin 30 MG/0.3 ML Syringe SC ×2 (10:46→21:14)
[2021-01-29] MEDS: dexAMETHasone 4 MG/ML Vial 6 MG IV (10:46)
[2021-01-29] MEDS: Furosemide 40 MG/4 ML Vial IV (10:46)
[2021-01-29] MEDS: Chlorhexidine 15 ML PO ×2 (10:48→21:14)
[2021-01-29] MEDS: Vital AF 1.2 Cal Liquid 1,000 ML 75 ML GT (12:57)
[2021-01-29 13:07] LABS: Pathologist Review Reviewed
--- NOTE | 2021-01-29 13:46 | CON.PCM.ID_ITS ---
Assessment & Plan Assessment/Plan (1) Pneumonia due to COVID-19 virus: PLAN: Sx started around 01/15. Isolate for 20 days from that point. Unvaccinated. Encouraged vaccine once recovered. Cxs neg. Fever resolved. Wbc improving. UAg neg. CT neg for PE. Will stop vanc/zosyn. Given toci x1 on 01/27. On dex. Will follow, thank you (2) Acute respiratory failure with hypoxia: HPI Consult Data Date of Consult: 01/29/21 HPI Narrative HPI Narrative: KEHINDE RIOJAS, is a 55 M who presented 01/27 with 12 days of fever, chills, diarrhea. Unvaccinated, family also sick. Emergently intubated in ED, admitted to icu on vanc/zosyn, dex, and given one dose tocilizumab. Today, awake on vent, denies dyspnea, minimal sputum from ETT per nursing. Full ROS performed and neg except as noted above. [facility] Medical History High cholesterol HTN (hypertension) Non-smoker Obesity Home Medications aspirin [Aspir-Low] 81 mg PO DAILY 01/27/21 [History Last Taken Unknown] atorvastatin 40 mg PO DAILY 01/27/21 [History Last Taken 01/27/21] lisinopril 10 mg PO DAILY 01/27/21 [History Last Taken 01/27/21] Allergy/AdvReac Type Severity Reaction Status Date / Time No Known Allergies Allergy Verified 01/27/21 17:40 Family History (Updated 01/27/21 @ 18:[address] Juanita Oseguera MD) Mother Diabetes Father Diabetes Surgical History (Updated 01/27/21 @ 18:[address] Juanita Oseguera MD) S/P correction of deviated nasal septum Social History (Updated 01/27/21 @ 18:[address] Juanita Oseguera MD) household members: spouse Smoking Status: Never smoker alcohol intake: never substance use type: does not use Physical Exam Const alert General Appearance: cooperative Exam Limitations: no limitations HEENT normocephalic and head/scalp atraumatic Eyes PERRL and EOMs intact bilaterally Neck supple and No nodes Resp Effort and Inspection: mechanically ventilated Auscultation: diminished lung sounds Cardio regular rate and regular rhythm GI normal to inspection, nondistended, normoactive bowel sounds Extremity no clubbing, cyanosis or edema Skin no rashes or lesions noted Neuro CN's II-XII intact bilaterally Lab / Micro Data Result Diagrams: 01/29/21 05:20 01/29/21 05:20 Labs: Laboratory Results - last 24 hr 01/27/21 17:25: Diff Path Review Reviewed 01/28/21 11:13: POC Glucose 234 H 01/28/21 17:36: POC Glucose 268 H 01/28/21 23:56: POC Glucose 245 H 01/29/21 05:20: WBC 17.6 H, RBC 3.77 L, Hgb 12.6 L, Hct 37.4 L, MCV 99.2 H, MCH 33.4 H, MCHC 33.7, RDW Std Deviation 44.8 H, RDW Coeff of Blanca 12.3, Plt Count 219, MPV 11.0, Immature Gran % (Auto) 1.300 H, Neut % (Auto) 91.8 H, Lymph % (Auto) 4.9 L, [place] % (Auto) 1.9, Eos % (Auto) 0.0, Baso % (Auto) 0.1, Absolute Neuts (auto) 16.2 H, Absolute Lymphs (auto) 0.86, Nucleated RBC % 0.6 01/29/21 05:20: Sodium 144, Potassium 3.8, Chloride 110 H, Carbon Dioxide 29.0, Anion Gap 5, BUN 21 H, Creatinine 0.88, Estim Creat Clear Calc 100.24, Est GFR (MDRD) Af Amer 116, Est GFR (MDRD) Non-Af 96, BUN/Creatinine Ratio 23.8 H, Glucose 289 H, Calcium 8.2 L 01/29/21 05:20: Total Bilirubin 0.50, Direct Bilirubin 0.17, AST 175 H, ALT 191 H, Alkaline Phosphatase 67, Total Protein 6.4, Albumin 2.0 L, Globulin 4.4 H 01/29/21 06:51: POC Glucose 289 H Micro: Microbiology 01/28/21 08:20 Sputum, Induced/Lukens Gram Stain - Final 01/28/21 08:20 Sputum, Induced/Lukens Respiratory Culture - Preliminary Appears to be normal respiratory eulalia. Further studies to follow. 01/27/21 21:40 Urine Catheter - Catheter Urine Culture - Preliminary Culture exhibits no growth.
--- NOTE | 2021-01-29 13:50 | CASEMGMT ---
SOCIAL WORK Referral Source: CM Reason for Consult: Support to SW following for support. Call to patient's , Carmella. Introduced role and reason for referral. reports some anxiety. states had signs/symptoms of COVID that started on 01/12. states then tested positive. states, I'm improving. states prior to COVID, patient independent and working. states patient's PCP is Dr. Camacho. Patient's preferred pharmacy is [facility] in [place]. Informed SW will be following along. SW to remain available for needs. Colton Larios, [employer], [employer] HEADER
--- NOTE | 2021-01-29 14:04 | CASEMGMT ---
RN CM NOTE: Per ER note, pt had COVID testing done @ [facility]. Natividad VICENTEN RN CM
--- NOTE | 2021-01-29 15:43 | PN.HOSP_ITS ---
Subjective Subjective Follow-up on acute respiratory failure/acute COVID-19 pneumonia: Patient was seen and examined. I was able to communicate with him via writing. He stated that he wants to be able to talk. Reassurance given Objective Data Objective Data Vital Signs: Vital Signs Temp Pulse Resp BP Pulse Ox 99.0 F 88 18 129/82 H 94 01/29/21 12:00 01/29/21 15:00 01/29/21 15:00 01/29/21 15:00 01/29/21 15:00 Oxygen Flow Rate (L/min) 15 Oxygen Delivery Method Mechanical Ventilator Weight: 94.801 kg Body Mass Index (BMI) 28.3 Intake & Output: Intake and Output for Last 24 Hours 01/27/21 01/28/21 01/29/21 23:59 23:59 23:59 Intake Total 2122.32 / 2130.14 3098.62 / 3103.62 586.00 / 586.00 Output Total 1000 / 1100 1420 / 1470 2545 / 2545 Balance 1122.32 / 1030.14 1678.62 / 1633.62 -1959.00 / -1959.00 Lab / Micro Data Result Diagrams: 01/29/21 05:20 01/29/21 05:20 Labs: Laboratory Results - last 24 hr 01/27/21 17:25: Diff Path Review Reviewed 01/28/21 17:36: POC Glucose 268 H 01/28/21 23:56: POC Glucose 245 H 01/29/21 05:20: WBC 17.6 H, RBC 3.77 L, Hgb 12.6 L, Hct 37.4 L, MCV 99.2 H, MCH 33.4 H, MCHC 33.7, RDW Std Deviation 44.8 H, RDW Coeff of Blanca 12.3, Plt Count 219, MPV 11.0, Immature Gran % (Auto) 1.300 H, Neut % (Auto) 91.8 H, Lymph % (Auto) 4.9 L, [place] % (Auto) 1.9, Eos % (Auto) 0.0, Baso % (Auto) 0.1, Absolute Neuts (auto) 16.2 H, Absolute Lymphs (auto) 0.86, Nucleated RBC % 0.6 01/29/21 05:20: Sodium 144, Potassium 3.8, Chloride 110 H, Carbon Dioxide 29.0, Anion Gap 5, BUN 21 H, Creatinine 0.88, Estim Creat Clear Calc 100.24, Est GFR (MDRD) Af Amer 116, Est GFR (MDRD) Non-Af 96, BUN/Creatinine Ratio 23.8 H, Glucose 289 H, Calcium 8.2 L 01/29/21 05:20: Total Bilirubin 0.50, Direct Bilirubin 0.17, AST 175 H, ALT 191 H, Alkaline Phosphatase 67, Total Protein 6.4, Albumin 2.0 L, Globulin 4.4 H 01/29/21 06:51: POC Glucose 289 H Micro: Microbiology 01/28/21 08:20 Sputum, Induced/Lukens Gram Stain - Final 01/28/21 08:20 Sputum, Induced/Lukens Respiratory Culture - Preliminary Appears to be normal respiratory eulalia. Further studies to follow. 01/27/21 21:40 Urine Catheter - Catheter Urine Culture - Preliminary Culture exhibits no growth. 01/27/21 19:30 Mucosa - Nose Respiratory Panel (PCR) - Final 01/27/21 19:25 Urine Catheter - Catheter Legionella Antigen - Final 01/27/21 19:25 Urine Catheter - Catheter Streptococcus pneumoniae Antigen (M - Final Physical Exam Narrative Physical exam: General: Alert, oriented x3, cooperative, intubated, on mechanical ventilator HEENT: Atraumatic Oral: Moist Mucosa Neck: Supple Lungs: Clear to auscultation Cardiovascular: HS I+II, regular, no murmurs Abdomen: Bowel Sounds Present, Soft, Non Tender Extremities: No edema Assessment & Plan Assessment/Plan (1) Acute respiratory failure with hypoxia: (2) Pneumonia due to COVID-19 virus: PLAN: 1. Acute hypoxic respiratory failure secondary to acute COVID-19 pneumonia Intubated from the ED Symptoms started on 01/16/21 Patient received a dose of Tocilizumab on 01/27 Chest X-ray and CTA chest shows multifocal infiltrates; acute PE ruled Continue on Decadron 2. Severe sepsis secondary to acute COVID-19 pneumonia, improved Sputum culture shows normal respiratory eulalia Urine cultures showed no growth Respiratory panel is unremarkable Urine Legionella cervical antigen is negative Blood cultures are pending Off antibiotics, ID following 3. Hyperglycemia secondary to decadron Started on Lantus with insulin sliding scale 4. Rest of his chronic medical conditions remained stable?hypertension, dyslipidemia Not on antihypertensives Will continue to monitor Charges/Coding Visit Charges Inpatient E&M: 04315 Subs Hosp L3
[2021-01-29 16:30] LABS: Bedside Glucose 373 mg/dL (70-110)
[2021-01-29 23:51] LABS: Bedside Glucose 306 mg/dL (70-110)
[2021-01-30] VITALS (38 sets, daily range): BP systolic 103–176; BP diastolic 74–109; PULSE 71–133; RESP 15–25; TEMP 37.3–38.3; O2SAT 90–95
[2021-01-30] MEDS: Insulin Lispro 100 UNIT/ML INSULN.PEN SC ×4 (00:32→18:00)
[2021-01-30 01:55] LABS: Bedside Glucose 334 mg/dL (70-110)
[2021-01-30 04:07] LABS: Absolute Lymphocyte Count 0.61 X10^3/uL (0.83-4.51); Basophil# 0.03 X10^3/uL; Basophil% 0.2 % (0-1); Hematocrit 40.9 % (40-54); Hemoglobin 14.1 g/dL (13.0-16.5); Lymphocyte # 0.61 X10^3/ul (0.83-4.51); Lymphocyte % 3.5 % (19-41); Mean Corp Hgb Conc 34.5 g/dL (32-36); Mean Corpuscular Hgb 33.4 pg (27.0-32.0); Mean Corpuscular Volume 96.9 fL (80-94); Mean Platelet Vol. 11.2 fl (6.2-12.0); Monocyte# 0.38 X10^3/uL; Monocyte% 2.2 % (0-10); NRBC Flagged by Analyzer 0.9 % (0-5); Neutrophil # 16.04 X10^3/uL (2.7-7.7); Neutrophil % 92.8 % (47-70); Platelet Count 250 K/mm3 (150-450); RBC Distribution Width CV 11.9 % (11.6-14.6); RBC Distribution Width SD 42.2 fl (35.1-43.9); Red Blood Count 4.22 M/mm3 (4.6-6.2); White Blood Count 17.3 K/mm3 (4.4-11.0)
[2021-01-30] MEDS: Vital AF 1.2 Cal Liquid 1,000 ML 75 ML GT ×2 (04:32→18:02)
[2021-01-30 04:35] LABS: Anion Gap 7 (5-15); BUN 26 mg/dL (7-18); BUN/Creat Ratio 29.6 RATIO (10-20); Calcium,Total 8.5 mg/dL (8.5-10.1); Chloride 107 mmol/L (98-107); Creatinine, Serum 0.88 mg/dL (0.70-1.30); EST Glomerular Filtration Rate 96 mL/min (>60); Est Glom Filt Rate - Afr Amer 116 mL/min (>60); Estimated Creatinine Clearance 100.24 ml/min; Glucose 349 mg/dL (74-106); Sodium Level 143 mmol/L (136-145)
[2021-01-30 05:40] LABS: Bedside Glucose 311 mg/dL (70-110)
[2021-01-30] MEDS: Furosemide 40 MG/4 ML Vial IV (06:41)
--- NOTE | 2021-01-30 07:34 | PN.CC_ITS ---
Assessment & Plan Assessment/Plan (1) Acute respiratory failure with hypoxia: (2) Pneumonia due to COVID-19 virus: PLAN: RECOMMENDATIONS: 1. Continue patient on assist control mode mechanical ventilation. Wean FiO2/PEEP for saturations greater than 90%. 2. Attempt to maintain plateau pressures less than 30. 3. Monitor off antimicrobials given negative cultures 4. Continue Decadron to complete 10-day treatment course. 5. Continue twice daily Lovenox as ordered. 6. Challenge with diuretics, increase Lantus 7. Continue appropriate GI prophylaxis. Okay to continue tube feeds from my perspective. IMPRESSIONS: 1. Acute hypoxemic respiratory failure secondary to COVID-19 pneumonia The patient presented to the hospital with progressive Covid symptoms after having been initially diagnosed at the end of December. He is therefore outside of the window for remdesivir. CTA chest showed no evidence for pulmonary embolism. The patient was emergently intubated in the emergency department. He will be continued on assist control mode mechanical ventilation. FiO2 and PEEP will be weaned to maintain saturations at or above 90%. Monitor patient off antimicrobials given negative cultures. Decadron and prophylactic Lovenox will also be continued. Diuretic therapy can be utilized as needed to maintain euvolemic state. Continue tube feeds, but will need higher Lantus dosing. 2. Acute kidney injury Resolved. Likely prerenal in etiology. The patient did initially respond to fluid resuscitation. However, supplemental IV fluids have been discontinued at this time. Creatinine has subsequently normalized. We will continue to monitor urine output. 3. Obesity/hypertension/hyperlipidemia Complicates care, management, recovery and prognosis. Continue home medications as indicated. Okay to initiate tube feeds. TIME: 34 minutes of critical care time, independent of procedures, was spent addressing the patient's acute hypoxemic respiratory failure secondary to COVID- 19 pneumonia, acute kidney injury, review of all data and collaboration with the care team. (6 AM to 7 AM) Subjective Subjective Patient did okay overnight. No acute issues were reported outside of elevated blood sugars and some hypertension. Patient is interactive and denies any pain. No significant change in secretions have been reported by nursing or respiratory. Objective Data Objective Data Vital Signs: Vital Signs Temp Pulse Resp BP Pulse Ox 37.4 C H 88 20 H 117/92 H 91 01/30/21 06:00 01/30/21 07:08 01/30/21 07:08 01/30/21 06:00 01/30/21 07:08 Oxygen Flow Rate (L/min) 15 Oxygen Delivery Method Mechanical Ventilator Weight: 92.896 kg Body Mass Index (BMI) 28.3 Intake & Output: Intake and Output for Last 24 Hours 01/28/21 01/29/21 01/30/21 23:59 23:59 23:59 Intake Total 3098.62 / 3103.62 3195.84 / 3355.84 988.33 / 988.33 Output Total 1420 / 1470 2945 / 3045 475 / 475 Balance 1678.62 / 1633.62 250.84 / 310.84 513.33 / 513.33 Lab / Micro Data Result Diagrams: 01/30/21 03:55 01/30/21 03:55 Labs: Laboratory Results - last 24 hr 01/27/21 17:25: Diff Path Review Reviewed 01/29/21 05:20: Total Bilirubin 0.50, Direct Bilirubin 0.17, AST 175 H, ALT 191 H, Alkaline Phosphatase 67, Total Protein 6.4, Albumin 2.0 L, Globulin 4.4 H 01/29/21 06:51: POC Glucose 289 H 01/29/21 12:55: POC Glucose 373 H 01/29/21 17:47: POC Glucose 306 H 01/30/21 00:20: POC Glucose 334 H 01/30/21 03:55: WBC 17.3 H, RBC 4.22 L, Hgb 14.1, Hct 40.9, MCV 96.9 H, MCH 33.4 H, MCHC 34.5, RDW Std Deviation 42.2, RDW Coeff of Blanca 11.9, Plt Count 250, MPV 11.2, Immature Gran % (Auto) 1.300 H, Neut % (Auto) 92.8 H, Lymph % (Auto) 3.5 L , [place] % (Auto) 2.2, Eos % (Auto) 0.0, Baso % (Auto) 0.2, Absolute Neuts (auto) 16.0 H, Absolute Lymphs (auto) 0.61 L, Nucleated RBC % 0.9 01/30/21 03:55: Sodium 143, Potassium 4.0, Chloride 107, Carbon Dioxide 29.0, Anion Gap 7, BUN 26 H, Creatinine 0.88, Estim Creat Clear Calc 100.24, Est GFR (MDRD) Af Amer 116, Est GFR (MDRD) Non-Af 96, BUN/Creatinine Ratio 29.6 H, Glucose 349 H, Calcium 8.5 01/30/21 05:21: POC Glucose 311 H Micro: Microbiology 01/28/21 08:20 Sputum, Induced/Lukens Gram Stain - Final 01/28/21 08:20 Sputum, Induced/Lukens Respiratory Culture - Preliminary Appears to be normal respiratory eulalia. Further studies to follow. 01/27/21 21:40 Urine Catheter - Catheter Urine Culture - Preliminary Culture exhibits no growth. 01/27/21 19:30 Mucosa - Nose Respiratory Panel (PCR) - Final 01/27/21 19:25 Urine Catheter - Catheter Legionella Antigen - Final 01/27/21 19:25 Urine Catheter - Catheter Streptococcus pneumoniae Antigen (M - Final Physical Exam Const no apparent distress Constitutional Narrative: Good vent synchrony. RASS 0. General Appearance: ill appearing, intubated and patient mechanically ventilated Nutritional Appearance: obese HEENT normocephalic and head/scalp atraumatic Mouth: endotracheal tube in place and OG tube in place Eyes PERRL, EOMs intact bilaterally and conjunctivae normal Neck supple General: trachea midline and CVC in place Chest inspection of chest normal Chest: symmetrical chest wall rise; Negative for crepitus Resp Auscultation: diminished lung sounds; Negative for rales, rhonchi or wheezes Cardio regular rate, regular rhythm, S1 normal heart sound, S2 normal heart sound, no murmurs, no rub and no gallops GI normal to inspection, nondistended, normoactive bowel sounds Extremity no clubbing, cyanosis or edema Skin no rashes or lesions noted Neuro Sensorium / Orientation: sedated on vent Charges/Coding Procedures Hospitalists Procedures: [id number] Critial Care 1st Hr
[2021-01-30] MEDS: CHLORHEXIDINE GLUC 2% CLOTH 1 EACH TOWELETTE TOPICAL (09:32)
[2021-01-30] MEDS: Chlorhexidine 15 ML PO ×2 (09:32→20:08)
[2021-01-30] MEDS: Enoxaparin 30 MG/0.3 ML Syringe SC ×2 (09:34→20:08)
[2021-01-30] MEDS: dexAMETHasone 4 MG/ML Vial 6 MG IV (09:34)
[2021-01-30] MEDS: Ascorbic Acid 500 MG Tablet 1000 MG PO (09:35)
[2021-01-30] MEDS: Metoprolol Tartrate 25 MG Tablet 12.5 MG GT (09:35)
[2021-01-30] MEDS: 0.9% Saline Lock 10 ML Syringe IV (09:39)
[2021-01-30] MEDS: Menthol/Lanolin/Calamine/Znox 113 GM Tube 1 APPLIC TOPICAL ×2 (11:49→20:09)
[2021-01-30 11:50] LABS: Bedside Glucose 354 mg/dL (70-110)
--- NOTE | 2021-01-30 14:06 | PCM.PN.HOSP ---
Subjective Subjective Follow-up on acute respiratory failure/acute COVID-19 pneumonia: Patient was seen and examined. He complains of feeling hot. He is lightly sedated. Able to write down his questions on the clipboard. He is running a low-grade temperature. He is also getting lots of loose stools. Sputum cultures showed normal respiratory eulalia. Urine cultures are negative. Blood cultures are still pending. Objective Data Objective Data Vital Signs: Vital Signs Temp Pulse Resp BP Pulse Ox 100.6 F H 82 17 150/87 H 93 01/30/21 14:00 01/30/21 14:00 01/30/21 14:00 01/30/21 14:00 01/30/21 14:00 Oxygen Flow Rate (L/min) 15 Oxygen Delivery Method Mechanical Ventilator Weight: 92.896 kg Body Mass Index (BMI) 28.3 Intake & Output: Intake and Output for Last 24 Hours 01/28/21 01/29/21 01/30/21 23:59 23:59 23:59 Intake Total 3098.62 / 3103.62 3195.84 / 3355.84 2306.83 / 2306.83 Output Total 1420 / 1470 2945 / 3045 1974 / 1974 Balance 1678.62 / 1633.62 250.84 / 310.84 331.83 / 331.83 Lab / Micro Data Result Diagrams: 01/30/21 03:55 01/30/21 03:55 Labs: Laboratory Results - last 24 hr 01/29/21 12:55: POC Glucose 373 H 01/29/21 17:47: POC Glucose 306 H 01/30/21 00:20: POC Glucose 334 H 01/30/21 03:55: WBC 17.3 H, RBC 4.22 L, Hgb 14.1, Hct 40.9, MCV 96.9 H, MCH 33.4 H, MCHC 34.5, RDW Std Deviation 42.2, RDW Coeff of Blanca 11.9, Plt Count 250, MPV 11.2, Immature Gran % (Auto) 1.300 H, Neut % (Auto) 92.8 H, Lymph % (Auto) 3.5 L, [place] % (Auto) 2.2, Eos % (Auto) 0.0, Baso % (Auto) 0.2, Absolute Neuts (auto) 16.0 H, Absolute Lymphs (auto) 0.61 L, Nucleated RBC % 0.9 01/30/21 03:55: Sodium 143, Potassium 4.0, Chloride 107, Carbon Dioxide 29.0, Anion Gap 7, BUN 26 H, Creatinine 0.88, Estim Creat Clear Calc 100.24, Est GFR (MDRD) Af Amer 116, Est GFR (MDRD) Non-Af 96, BUN/Creatinine Ratio 29.6 H, Glucose 349 H, Calcium 8.5 01/30/21 05:21: POC Glucose 311 H 01/30/21 11:36: POC Glucose 354 H Micro: Microbiology 01/28/21 08:20 Sputum, Induced/Lukens Gram Stain - Final 01/28/21 08:20 Sputum, Induced/Lukens Respiratory Culture - Final Mixed normal respiratory eulalia. No Streptococcus pneumoniae, beta-hemolytic Streptococcus or Staphylococcus aureus isolated. 01/27/21 21:40 Urine Catheter - Catheter Urine Culture - Final Culture exhibits no growth. 01/27/21 19:30 Mucosa - Nose Respiratory Panel (PCR) - Final 01/27/21 19:25 Urine Catheter - Catheter Legionella Antigen - Final 01/27/21 19:25 Urine Catheter - Catheter Streptococcus pneumoniae Antigen (M - Final Physical Exam Narrative Physical exam: General: Alert, oriented x3, cooperative, intubated, on mechanical ventilator, warm to touch HEENT: Atraumatic Oral: Moist Mucosa Neck: Supple Lungs: Clear to auscultation Cardiovascular: HS I+II, regular, no murmurs Abdomen: Bowel Sounds Present, Soft, Non Tender Extremities: No edema Assessment & Plan Assessment/Plan (1) Acute respiratory failure with hypoxia: (2) Pneumonia due to COVID-19 virus: PLAN: 1. Acute hypoxic respiratory failure secondary to acute COVID-19 pneumonia Intubated from the ED Symptoms started on 01/16/21 Patient received a dose of Tocilizumab on 01/27 Chest X-ray and CTA chest shows multifocal infiltrates; acute PE ruled Continue on Decadron 2. Severe sepsis secondary to acute COVID-19 pneumonia, improved Sputum culture shows normal respiratory eulalia Urine cultures showed no growth Respiratory panel is unremarkable Urine Legionella cervical antigen is negative Blood cultures are pending Off antibiotics, ID following 3. Hyperglycemia secondary to decadron, remains elevated Changes made to Lantus with insulin sliding scale 4. Rest of his chronic medical conditions remained stable?hypertension, dyslipidemia Not on antihypertensives Will continue to monitor Charges/Coding Visit Charges Inpatient E&M: 43315 Subs Hosp L3
[2021-01-30 17:50] LABS: Bedside Glucose 291 mg/dL (70-110)
[2021-01-30] MEDS: Acetaminophen 650 MG/20 ML UDC GT (20:07)
[2021-01-30] MEDS: Carvedilol 25 MG Tablet GT (20:08)
[2021-01-31] VITALS (34 sets, daily range): BP systolic 108–147; BP diastolic 68–95; PULSE 65–97; RESP 16–24; TEMP 37.6–38.1; O2SAT 89–97
[2021-01-31] MEDS: Insulin Lispro 100 UNIT/ML INSULN.PEN SC ×4 (00:30→18:00)
[2021-01-31 01:26] LABS: Bedside Glucose 332 mg/dL (70-110)
[2021-01-31 04:58] LABS: Absolute Lymphocyte Count 0.82 X10^3/uL (0.83-4.51); Absolute Neutrophil Count 13.5 X10^3/uL (2.0-7.7); Basophil# 0.02 X10^3/uL; Basophil% 0.1 % (0-1); Eosinophil# 0.02 X10^3/uL; Eosinophils% 0.1 % (0-5); Hematocrit 41.2 % (40-54); Hemoglobin 14.1 g/dL (13.0-16.5); Lymphocyte # 0.82 X10^3/ul (0.83-4.51); Lymphocyte % 5.5 % (19-41); Mean Corp Hgb Conc 34.2 g/dL (32-36); Mean Corpuscular Hgb 33.4 pg (27.0-32.0); Mean Corpuscular Volume 97.6 fL (80-94); Mean Platelet Vol. 11.2 fl (6.2-12.0); Monocyte# 0.34 X10^3/uL; Monocyte% 2.3 % (0-10); NRBC Flagged by Analyzer 0.6 % (0-5); Neutrophil # 13.52 X10^3/uL (2.7-7.7); Neutrophil % 90.2 % (47-70); Platelet Count 255 K/mm3 (150-450); RBC Distribution Width SD 42.7 fl (35.1-43.9); Red Blood Count 4.22 M/mm3 (4.6-6.2)
[2021-01-31 05:19] LABS: ALB/GLOB Ratio 0.6 RATIO (0.9-2.4); AST(SGOT) 59 U/L (15-37); Alanine Aminotransfer ALT/SGPT 206 U/L (16-61); Albumin, Serum 2.4 g/dL (3.2-5.0); Alkaline Phosphatase 70 U/L (45-117); Anion Gap 4 (5-15); BUN 27 mg/dL (7-18); BUN/Creat Ratio 30.4 RATIO (10-20); Calcium,Total 8.7 mg/dL (8.5-10.1); Chloride 104 mmol/L (98-107); Creatinine, Serum 0.89 mg/dL (0.70-1.30); EST Glomerular Filtration Rate 95 mL/min (>60); Est Glom Filt Rate - Afr Amer 115 mL/min (>60); Estimated Creatinine Clearance 99.11 ml/min; Globulin 4.2 g/dL (2.2-4.2); Glucose 313 mg/dL (74-106); Potassium 3.8 mmol/L (3.5-5.1); Protein, Total 6.6 g/dL (6.4-8.2); Sodium Level 142 mmol/L (136-145)
[2021-01-31] MEDS: Loperamide (Oral Liquid) 1 MG/7.5 ML ML 2 MG GT (06:32)
[2021-01-31] MEDS: Furosemide 40 MG/4 ML Vial IV (06:32)
[2021-01-31] MEDS: Potassium Chloride Oral Soln 20 MEQ/15 ML UDC 40 MEQ PO (06:32)
[2021-01-31] MEDS: Acetaminophen 650 MG/20 ML UDC GT (06:34)
[2021-01-31] MEDS: Vital AF 1.2 Cal Liquid 1,000 ML 75 ML GT ×2 (06:34→08:38)
[2021-01-31] MEDS: CHLORHEXIDINE GLUC 2% CLOTH 1 EACH TOWELETTE TOPICAL (06:35)
[2021-01-31] MEDS: Menthol/Lanolin/Calamine/Znox 113 GM Tube 1 APPLIC TOPICAL ×3 (06:47→19:58)
--- NOTE | 2021-01-31 07:31 | PCM.PN.INT ---
Assessment & Plan Assessment/Plan (1) Acute respiratory failure with hypoxia: (2) Pneumonia due to COVID-19 virus: PLAN: RECOMMENDATIONS: 1. Continue patient on assist control mode mechanical ventilation. Wean FiO2/PEEP for saturations greater than 90%. 2. Spontaneous breathing and awakening trials per protocol. 3. Monitor off antimicrobials given negative cultures 4. Continue Decadron to complete 10-day treatment course. 5. Continue twice daily Lovenox as ordered. 6. Challenge with diuretics, increase Lantus 7. Continue appropriate GI prophylaxis. Okay to continue tube feeds from my perspective. 8. Continue Imodium for probable osmotic diarrhea IMPRESSIONS: 1. Acute hypoxemic respiratory failure secondary to COVID-19 pneumonia The patient presented to the hospital with progressive Covid symptoms after having been initially diagnosed at the end of December. He is therefore outside of the window for remdesivir. CTA chest showed no evidence for pulmonary embolism. The patient was emergently intubated in the emergency department. He will be continued on assist control mode mechanical ventilation. FiO2 and PEEP will be weaned to maintain saturations at or above 90%. Monitor patient off antimicrobials given negative cultures. Decadron and prophylactic Lovenox will also be continued. Diuretic therapy can be utilized as needed to maintain euvolemic state. Spontaneous breathing and awakening trials per protocol. 2. Acute kidney injury Resolved. Likely prerenal in etiology. The patient did initially respond to fluid resuscitation. However, supplemental IV fluids have been discontinued at this time. Creatinine has subsequently normalized. We will continue to monitor urine output. 3. Obesity/hypertension/hyperlipidemia Complicates care, management, recovery and prognosis. Continue home medications as indicated. Okay to continue tube feeds. Increase Lantus. TIME: 35 minutes of critical care time, independent of procedures, was spent addressing the patient's acute hypoxemic respiratory failure secondary to COVID-19 pneumonia, acute kidney injury, review of all data and collaboration with the care team. (6:15 AM to 7:15 AM) Subjective Subjective Patient was some elevated blood pressures yesterday and was started on Coreg. Patient's blood sugars have been slightly elevated overnight and patient did have a fever. However, oxygenation status continues to improve. Patient continues to be interactive and denies any chest pain, abdominal pain or nausea. Patient continues to have loose bowel movements, but improved on Imodium. Objective Data Objective Data Vital Signs: Vital Signs Temp Pulse Resp BP Pulse Ox 37.9 C H 74 17 139/95 H 93 01/31/21 07:00 01/31/21 07:04 01/31/21 07:04 01/31/21 07:00 01/31/21 07:04 Oxygen Flow Rate (L/min) 15 Oxygen Delivery Method Mechanical Ventilator Weight: 92.306 kg Body Mass Index (BMI) 28.3 Intake & Output: Intake and Output for Last 24 Hours 01/29/21 01/30/21 01/31/21 23:59 23:59 23:59 Intake Total 3195.84 / 3355.84 3355.50 / 3355.50 440.63 / 440.63 Output Total 2945 / 3045 2425 / 2775 750 / 750 Balance 250.84 / 310.84 930.50 / 580.50 -309.37 / -309.37 Lab / Micro Data Result Diagrams: 01/31/21 04:45 01/31/21 04:45 Labs: Laboratory Results - last 24 hr 01/30/21 11:36: POC Glucose 354 H 01/30/21 17:45: POC Glucose 291 H 01/31/21 00:31: POC Glucose 332 H 01/31/21 04:45: WBC 15.0 H, RBC 4.22 L, Hgb 14.1, Hct 41.2, MCV 97.6 H, MCH 33.4 H, MCHC 34.2, RDW Std Deviation 42.7, RDW Coeff of Blanca 12.0, Plt Count 255, MPV 11.2, Immature Gran % (Auto) 1.800 H, Neut % (Auto) 90.2 H, Lymph % (Auto) 5.5 L, [place] % (Auto) 2.3, Eos % (Auto) 0.1, Baso % (Auto) 0.1, Absolute Neuts (auto) 13.5 H, Absolute Lymphs (auto) 0.82 L, Nucleated RBC % 0.6 01/31/21 04:45: Sodium 142, Potassium 3.8, Chloride 104, Carbon Dioxide 34.0 H, Anion Gap 4 L, BUN 27 H, Creatinine 0.89, Estim Creat Clear Calc 99.11, Est GFR (MDRD) Af Amer 115, Est GFR (MDRD) Non-Af 95, BUN/Creatinine Ratio 30.4 H, Glucose 313 H, Calcium 8.7, Total Bilirubin 0.40, AST 59 H, ALT 206 H, Alkaline Phosphatase 70, Total Protein 6.6, Albumin 2.4 L, Globulin 4.2, Albumin/Globulin Ratio 0.6 L Micro: Microbiology 01/30/21 13:20 Stool C. difficile DNA Amplification - Final 01/28/21 08:20 Sputum, Induced/Lukens Gram Stain - Final 01/28/21 08:20 Sputum, Induced/Lukens Respiratory Culture - Final Mixed normal respiratory eulalia. No Streptococcus pneumoniae, beta-hemolytic Streptococcus or Staphylococcus aureus isolated. 01/27/21 21:40 Urine Catheter - Catheter Urine Culture - Final Culture exhibits no growth. 01/27/21 19:30 Mucosa - Nose Respiratory Panel (PCR) - Final 01/27/21 19:25 Urine Catheter - Catheter Legionella Antigen - Final 01/27/21 19:25 Urine Catheter - Catheter Streptococcus pneumoniae Antigen (M - Final Physical Exam Const no apparent distress Constitutional Narrative: Good vent synchrony. RASS 0. General Appearance: intubated and patient mechanically ventilated Nutritional Appearance: obese HEENT normocephalic and head/scalp atraumatic Mouth: endotracheal tube in place and OG tube in place Eyes PERRL, EOMs intact bilaterally and conjunctivae normal Neck supple General: trachea midline and CVC in place Chest inspection of chest normal Chest: symmetrical chest wall rise; Negative for crepitus Resp Auscultation: diminished lung sounds; Negative for rales, rhonchi or wheezes Cardio regular rate, regular rhythm, S1 normal heart sound, S2 normal heart sound, no murmurs, no rub and no gallops GI normal to inspection, nondistended, normoactive bowel sounds Extremity no clubbing, cyanosis or edema Skin no rashes or lesions noted Neuro Sensorium / Orientation: sedated on vent Psych mental status grossly normal, thought process normal and cooperative Charges/Coding Procedures Hospitalists Procedures: [id number] Critial Care 1st Hr
--- NOTE | 2021-01-31 07:40 | PN.HOSP_ITS ---
Subjective Subjective Patient was seen and examined. His oxygen requirements are slowly coming down. He still able to talk writing on the board. Objective Data Objective Data Vital Signs: Vital Signs Temp Pulse Resp BP Pulse Ox 100.2 F H 76 17 139/95 H 93 01/31/21 07:00 01/31/21 07:33 01/31/21 07:04 01/31/21 07:00 01/31/21 07:04 Oxygen Flow Rate (L/min) 15 Oxygen Delivery Method Mechanical Ventilator Weight: 92.306 kg Body Mass Index (BMI) 28.3 Intake & Output: Intake and Output for Last 24 Hours 01/29/21 01/30/21 01/31/21 23:59 23:59 23:59 Intake Total 3195.84 / 3355.84 3355.50 / 3355.50 440.63 / 440.63 Output Total 2945 / 3045 2425 / 2775 750 / 750 Balance 250.84 / 310.84 930.50 / 580.50 -309.37 / -309.37 Lab / Micro Data Result Diagrams: 01/31/21 04:45 01/31/21 04:45 Labs: Laboratory Results - last 24 hr 01/30/21 11:36: POC Glucose 354 H 01/30/21 17:45: POC Glucose 291 H 01/31/21 00:31: POC Glucose 332 H 01/31/21 04:45: WBC 15.0 H, RBC 4.22 L, Hgb 14.1, Hct 41.2, MCV 97.6 H, MCH 33.4 H, MCHC 34.2, RDW Std Deviation 42.7, RDW Coeff of Blanca 12.0, Plt Count 255, MPV 11.2, Immature Gran % (Auto) 1.800 H, Neut % (Auto) 90.2 H, Lymph % (Auto) 5.5 L , [place] % (Auto) 2.3, Eos % (Auto) 0.1, Baso % (Auto) 0.1, Absolute Neuts (auto) 13.5 H, Absolute Lymphs (auto) 0.82 L, Nucleated RBC % 0.6 01/31/21 04:45: Sodium 142, Potassium 3.8, Chloride 104, Carbon Dioxide 34.0 H, Anion Gap 4 L, BUN 27 H, Creatinine 0.89, Estim Creat Clear Calc 99.11, Est GFR (MDRD) Af Amer 115, Est GFR (MDRD) Non-Af 95, BUN/Creatinine Ratio 30.4 H, Glucose 313 H, Calcium 8.7, Total Bilirubin 0.40, AST 59 H, ALT 206 H, Alkaline Phosphatase 70, Total Protein 6.6, Albumin 2.4 L, Globulin 4.2, Albumin/Globulin Ratio 0.6 L Micro: Microbiology 01/30/21 13:20 Stool C. difficile DNA Amplification - Final 01/28/21 08:20 Sputum, Induced/Lukens Gram Stain - Final 01/28/21 08:20 Sputum, Induced/Lukens Respiratory Culture - Final Mixed normal respiratory eulalia. No Streptococcus pneumoniae, beta-hemolytic Streptococcus or Staphylococcus aureus isolated. 01/27/21 21:40 Urine Catheter - Catheter Urine Culture - Final Culture exhibits no growth. 01/27/21 19:30 Mucosa - Nose Respiratory Panel (PCR) - Final 01/27/21 19:25 Urine Catheter - Catheter Legionella Antigen - Final 01/27/21 19:25 Urine Catheter - Catheter Streptococcus pneumoniae Antigen (M - Final Physical Exam Narrative Physical exam: General: Alert, oriented x3, cooperative, intubated, on mechanical ventilator, warm to touch HEENT: Atraumatic Oral: Moist Mucosa Neck: Supple Lungs: Clear to auscultation Cardiovascular: HS I+II, regular, no murmurs Abdomen: Bowel Sounds Present, Soft, Non Tender Extremities: No edema Assessment & Plan Assessment/Plan (1) Acute respiratory failure with hypoxia: (2) Pneumonia due to COVID-19 virus: PLAN: 1. Acute hypoxic respiratory failure secondary to acute COVID-19 pneumonia, some improvement in oxygen requirements Intubated from the ED Symptoms started on 01/16/21 Patient received a dose of Tocilizumab on 01/27 Chest X-ray and CTA chest shows multifocal infiltrates; acute PE ruled Continue on Decadron 2. Severe sepsis secondary to acute COVID-19 pneumonia, improved Sputum culture shows normal respiratory eulalia Urine cultures showed no growth Respiratory panel is unremarkable Urine Legionella cervical antigen is negative Blood cultures are pending Off antibiotics, ID following 3. Hyperglycemia secondary to decadron, remains elevated Changes made to Lantus with insulin sliding scale 4. Rest of his chronic medical conditions remained stable?hypertension, dyslipidemia Not on antihypertensives Will continue to monitor Charges/Coding Visit Charges Inpatient E&M: 51527 Subs Hosp L3
[2021-01-31 08:21] LABS: Bedside Glucose 260 mg/dL (70-110)
[2021-01-31] MEDS: dexAMETHasone 4 MG/ML Vial 6 MG IV (08:26)
[2021-01-31] MEDS: Chlorhexidine 15 ML PO ×2 (08:26→19:55)
[2021-01-31] MEDS: Carvedilol 25 MG Tablet GT ×2 (08:26→19:53)
[2021-01-31] MEDS: Enoxaparin 30 MG/0.3 ML Syringe SC ×2 (08:28→19:53)
[2021-01-31] MEDS: 0.9% Saline Lock 10 ML Syringe IV (08:33)
[2021-01-31] MEDS: Ascorbic Acid 500 MG Tablet 1000 MG GT (12:12)
[2021-01-31 12:46] LABS: Bedside Glucose 337 mg/dL (70-110)
--- NOTE | 2021-01-31 14:50 | CASEMGMT ---
SW participated in ICU rounds this morning. SW called pt's Carmella to check in on her. She states she is feeling better and may be able to come see pt tomorrow, she is very happy about that. SW let Carmella know if she needs to speak w/a SW when here tomorrow to ask the ICU staff and they can have a SW come to see her. thanked SW for the call. SW remains available for support to family. CAROLYNN Pizarro
[2021-01-31] MEDS: Loperamide (Oral Liquid) 1 MG/7.5 ML ML 4 MG GT ×2 (16:14→20:00)
[2021-02-01] VITALS (37 sets, daily range): BP systolic 114–156; BP diastolic 73–103; PULSE 65–92; RESP 16–27; TEMP 37.3–38; O2SAT 88–96
[2021-02-01] MEDS: CHLORHEXIDINE GLUC 2% CLOTH 1 EACH TOWELETTE TOPICAL (00:02)
[2021-02-01 01:36] LABS: Bedside Glucose 274 mg/dL (70-110)
[2021-02-01 01:51] LABS: Bedside Glucose 264 mg/dL (70-110)
[2021-02-01] MEDS: Insulin Lispro 100 UNIT/ML INSULN.PEN SC ×4 (05:41→15:56)
[2021-02-01] MEDS: Menthol/Lanolin/Calamine/Znox 113 GM Tube 1 APPLIC TOPICAL ×3 (05:42→20:17)
[2021-02-01 06:42] LABS: Absolute Lymphocyte Count 1.11 X10^3/uL (0.83-4.51); Absolute Neutrophil Count 18.2 X10^3/uL (2.0-7.7); Basophil# 0.03 X10^3/uL; Basophil% 0.1 % (0-1); Eosinophil# 0.06 X10^3/uL; Eosinophils% 0.3 % (0-5); Hematocrit 41.2 % (40-54); Lymphocyte # 1.11 X10^3/ul (0.83-4.51); Lymphocyte % 5.5 % (19-41); Mean Corpuscular Hgb 33.3 pg (27.0-32.0); Mean Corpuscular Volume 98.1 fL (80-94); Mean Platelet Vol. 11.2 fl (6.2-12.0); Monocyte# 0.42 X10^3/uL; Monocyte% 2.1 % (0-10); NRBC Flagged by Analyzer 0.1 % (0-5); Neutrophil # 18.21 X10^3/uL (2.7-7.7); Neutrophil % 91.1 % (47-70); Platelet Count 248 K/mm3 (150-450); RBC Distribution Width SD 42.7 fl (35.1-43.9)
[2021-02-01 06:56] LABS: Anion Gap 6 (5-15); BUN 31 mg/dL (7-18); BUN/Creat Ratio 38.5 RATIO (10-20); Calcium,Total 8.8 mg/dL (8.5-10.1); Chloride 103 mmol/L (98-107); EST Glomerular Filtration Rate 106 mL/min (>60); Est Glom Filt Rate - Afr Amer 129 mL/min (>60); Estimated Creatinine Clearance 110.26 ml/min; Glucose 285 mg/dL (74-106); Potassium 4.1 mmol/L (3.5-5.1); Sodium Level 141 mmol/L (136-145)
--- NOTE | 2021-02-01 07:44 | PN.CC_ITS ---
Assessment & Plan Assessment/Plan (1) Acute respiratory failure with hypoxia: (2) Pneumonia due to COVID-19 virus: PLAN: RECOMMENDATIONS: 1. Continue patient on assist control mode mechanical ventilation. Wean FiO2/PEEP for saturations greater than 90%. 2. Spontaneous breathing and awakening trials per protocol. 3. Monitor off antimicrobials given negative cultures 4. Continue Decadron to complete 10-day treatment course. 5. Continue twice daily Lovenox as ordered. 6. Challenge with diuretics, increase Lantus 7. Continue appropriate GI prophylaxis. Okay to continue tube feeds from my perspective. 8. Continue Imodium for probable osmotic diarrhea IMPRESSIONS: 1. Acute hypoxemic respiratory failure secondary to COVID-19 pneumonia The patient presented to the hospital with progressive Covid symptoms afte r having been initially diagnosed at the end of December. He is therefore outside of the window for remdesivir. CTA chest showed no evidence for pulmonary embolism. The patient was emergently intubated in the emergency department. He will be continued on assist control mode mechanical ventilation. FiO2 and PEEP will be weaned to maintain saturations at or above 90%. Monitor patient off antimicrobials given negative cultures. Patient has had a slight fever and leukocytosis, but no change in secretions. Decadron and prophylactic Lovenox will also be continued. Diuretic therapy can be utilized as needed to maintain euvolemic state. Spontaneous breathing and awakening trials per [facility] col. 2. Acute kidney injury Resolved. Likely prerenal in etiology. The patient did initially respond to fluid resuscitation. However, supplemental IV fluids have been discontinued at this time. Creatinine has subsequently normalized. We will continue to monitor urine output. 3. Obesity/hypertension/hyperlipidemia Complicates care, management, recovery and prognosis. Continue home medications as indicated. Okay to continue tube feeds. Increase Lantus. TIME: 32 minutes of critical care time, independent of procedures, was spent addressing the patient's acute hypoxemic respiratory failure secondary to COVID- 19 pneumonia, acute kidney injury, review of all data and collaboration with the care team. (6 AM to 7 AM) Subjective Subjective Patient did well overnight. No acute issues were reported. Patient has continued to tolerate tube feeds and bowel movements have decreased to 1 overnight. Patient did have a slight fever, but tolerated this well. Patient is not reporting any pain this morning. Patient did not have a spontaneous breathing trial secondary to increased FiO2. Objective Data Objective Data Vital Signs: Vital Signs Temp Pulse Resp BP Pulse Ox 37.8 C H 75 18 129/83 H 93 02/01/21 07:00 02/01/21 07:11 02/01/21 07:00 02/01/21 07:00 02/01/21 07:00 Oxygen Flow Rate (L/min) 15 Oxygen Delivery Method Mechanical Ventilator Weight: 91.989 kg Body Mass Index (BMI) 28.3 Intake & Output: Intake and Output for Last 24 Hours 01/30/21 01/31/21 02/01/21 23:59 23:59 23:59 Intake Total 3355.50 / 3355.50 2991.43 / 3116.43 1652.87 / 1652.87 Output Total 2425 / 2775 2550 / 2900 800 / 800 Balance 930.50 / 580.50 441.43 / 216.43 852.87 / 852.87 Lab / Micro Data Result Diagrams: 02/01/21 06:30 02/01/21 06:30 Labs: Laboratory Results - last 24 hr 01/31/21 06:45: POC Glucose 260 H 01/31/21 12:11: POC Glucose 337 H 01/31/21 17:59: POC Glucose 264 H 01/31/21 23:39: POC Glucose 274 H 02/01/21 06:30: Sodium 141, Potassium 4.1, Chloride 103, Carbon Dioxide 32.0, Anion Gap 6, BUN 31 H, Creatinine 0.80, Estim Creat Clear Calc 110.26, Est GFR (MDRD) Af Amer 129, Est GFR (MDRD) Non-Af 106, BUN/Creatinine Ratio 38.5 H, Glucose 285 H, Calcium 8.8 02/01/21 06:30: WBC 20.0 H, RBC 4.20 L, Hgb 14.0, Hct 41.2, MCV 98.1 H, MCH 33.3 H, MCHC 34.0, RDW Std Deviation 42.7, RDW Coeff of Blanca 12.0, Plt Count 248, MPV 11.2, Immature Gran % (Auto) 0.900, Neut % (Auto) 91.1 H, Lymph % (Auto) 5.5 L, [place] % (Auto) 2.1, Eos % (Auto) 0.3, Baso % (Auto) 0.1, Absolute Neuts (auto) 18.2 H, Absolute Lymphs (auto) 1.11, Nucleated RBC % 0.1 Micro: Microbiology 01/30/21 13:20 Stool C. difficile DNA Amplification - Final 01/28/21 08:20 Sputum, Induced/Lukens Gram Stain - Final 01/28/21 08:20 Sputum, Induced/Lukens Respiratory Culture - Final Mixed normal respiratory eulalia. No Streptococcus pneumoniae, beta-hemolytic Streptococcus or Staphylococcus aureus isolated. 01/27/21 21:40 Urine Catheter - Catheter Urine Culture - Final Culture exhibits no growth. 01/27/21 19:30 Mucosa - Nose Respiratory Panel (PCR) - Final 01/27/21 19:25 Urine Catheter - Catheter Legionella Antigen - Final 01/27/21 19:25 Urine Catheter - Catheter Streptococcus pneumoniae Antigen (M - Final Physical Exam Const no apparent distress Constitutional Narrative: Good vent synchrony. RASS 0. General Appearance: intubated and patient mechanically ventilated Nutritional Appearance: obese HEENT normocephalic and head/scalp atraumatic Mouth: endotracheal tube in place and OG tube in place Eyes PERRL, EOMs intact bilaterally and conjunctivae normal Neck supple General: trachea midline and CVC in place Chest inspection of chest normal Chest: symmetrical chest wall rise; Negative for crepitus Resp Auscultation: diminished lung sounds; Negative for rales, rhonchi or wheezes Cardio regular rate, regular rhythm, S1 normal heart sound, S2 normal heart sound, no murmurs, no rub and no gallops GI normal to inspection, nondistended, normoactive bowel sounds Extremity no clubbing, cyanosis or edema Skin no rashes or lesions noted Neuro Sensorium / Orientation: sedated on vent Psych mental status grossly normal, thought process normal and cooperative Charges/Coding Procedures Hospitalists Procedures: 49554 Critial Care 1st Hr
--- NOTE | 2021-02-01 07:53 | PCM.PN.HOSP ---
Subjective Subjective Patient was seen and examined. No acute events overnight. Still having low-grade fevers. Oxygen requirements have improved Objective Data Objective Data Vital Signs: Vital Signs Temp Pulse Resp BP Pulse Ox 100.1 F H 75 18 129/83 H 93 02/01/21 07:00 02/01/21 07:11 02/01/21 07:00 02/01/21 07:00 02/01/21 07:00 Oxygen Flow Rate (L/min) 15 Oxygen Delivery Method Mechanical Ventilator Weight: 91.989 kg Body Mass Index (BMI) 28.3 Intake & Output: Intake and Output for Last 24 Hours 01/30/21 01/31/21 02/01/21 23:59 23:59 23:59 Intake Total 3355.50 / 3355.50 2991.43 / 3116.43 1652.87 / 1652.87 Output Total 2425 / 2775 2550 / 2900 800 / 800 Balance 930.50 / 580.50 441.43 / 216.43 852.87 / 852.87 Lab / Micro Data Result Diagrams: 02/01/21 06:30 02/01/21 06:30 Labs: Laboratory Results - last 24 hr 01/31/21 06:45: POC Glucose 260 H 01/31/21 12:11: POC Glucose 337 H 01/31/21 17:59: POC Glucose 264 H 01/31/21 23:39: POC Glucose 274 H 02/01/21 06:30: Sodium 141, Potassium 4.1, Chloride 103, Carbon Dioxide 32.0, Anion Gap 6, BUN 31 H, Creatinine 0.80, Estim Creat Clear Calc 110.26, Est GFR (MDRD) Af Amer 129, Est GFR (MDRD) Non-Af 106, BUN/Creatinine Ratio 38.5 H, Glucose 285 H, Calcium 8.8 02/01/21 06:30: WBC 20.0 H, RBC 4.20 L, Hgb 14.0, Hct 41.2, MCV 98.1 H, MCH 33.3 H, MCHC 34.0, RDW Std Deviation 42.7, RDW Coeff of Blanca 12.0, Plt Count 248, MPV 11.2, Immature Gran % (Auto) 0.900, Neut % (Auto) 91.1 H, Lymph % (Auto) 5.5 L, [place] % (Auto) 2.1, Eos % (Auto) 0.3, Baso % (Auto) 0.1, Absolute Neuts (auto) 18.2 H, Absolute Lymphs (auto) 1.11, Nucleated RBC % 0.1 Micro: Microbiology 01/30/21 13:20 Stool C. difficile DNA Amplification - Final 01/28/21 08:20 Sputum, Induced/Lukens Gram Stain - Final 01/28/21 08:20 Sputum, Induced/Lukens Respiratory Culture - Final Mixed normal respiratory eulalia. No Streptococcus pneumoniae, beta-hemolytic Streptococcus or Staphylococcus aureus isolated. 01/27/21 21:40 Urine Catheter - Catheter Urine Culture - Final Culture exhibits no growth. 01/27/21 19:30 Mucosa - Nose Respiratory Panel (PCR) - Final 01/27/21 19:25 Urine Catheter - Catheter Legionella Antigen - Final 01/27/21 19:25 Urine Catheter - Catheter Streptococcus pneumoniae Antigen (M - Final Physical Exam Narrative Physical exam: General: Alert, oriented x3, cooperative, intubated, on mechanical ventilator HEENT: Atraumatic Oral: Moist Mucosa Neck: Supple Lungs: Clear to auscultation Cardiovascular: HS I+II, regular, no murmurs Abdomen: Bowel Sounds Present, Soft, Non Tender Extremities: No edema Assessment & Plan Assessment/Plan (1) Acute respiratory failure with hypoxia: (2) Pneumonia due to COVID-19 virus: PLAN: 1. Acute hypoxic respiratory failure secondary to acute COVID-19 pneumonia, some improvement in oxygen requirements Intubated from the ED Symptoms started on 01/16/21 Patient received a dose of Tocilizumab on 01/27 Chest X-ray and CTA chest shows multifocal infiltrates; acute PE ruled Continue on Decadron 2. Severe sepsis secondary to acute COVID-19 pneumonia, improved Sputum culture shows normal respiratory eulalia Urine cultures showed no growth Respiratory panel is unremarkable Urine Legionella cervical antigen is negative Blood cultures are pending Off antibiotics, ID following 3. Hyperglycemia secondary to decadron, remains elevated Changes made to Lantus with insulin sliding scale 4. Rest of his chronic medical conditions remained stable?hypertension, dyslipidemia Not on antihypertensives Will continue to monitor Charges/Coding Visit Charges Inpatient E&M: 09269 Subs Hosp L3
[2021-02-01 08:06] LABS: Bedside Glucose 291 mg/dL (70-110)
[2021-02-01] MEDS: Furosemide 40 MG/4 ML Vial IV (08:35)
[2021-02-01] MEDS: Ascorbic Acid 500 MG Tablet 1000 MG GT (08:35)
[2021-02-01] MEDS: Enoxaparin 30 MG/0.3 ML Syringe SC ×2 (08:35→20:17)
[2021-02-01] MEDS: dexAMETHasone 4 MG/ML Vial 6 MG IV (08:36)
[2021-02-01] MEDS: Carvedilol 25 MG Tablet GT ×2 (08:36→20:18)
[2021-02-01] MEDS: Chlorhexidine 15 ML PO ×2 (08:37→20:17)
--- NOTE | 2021-02-01 10:53 | PCM.PN.ID ---
Physical Exam Narrative Low grade temps, on vent Const no apparent distress Resp Effort and Inspection: mechanically ventilated Auscultation: diminished lung sounds Cardio regular rate and regular rhythm GI normal to inspection, nondistended, normoactive bowel sounds Skin no rashes or lesions noted ID ID: Route of nutrition/ use of supplements: [] Nutritional Intake: [] IV Site: [] Colon Catheter: [] Assessment & Plan Assessment/Plan (1) Pneumonia due to COVID-19 virus: PLAN: Sx started around 01/15. Isolate for 20 days from that point. Unvaccinated. Encouraged vaccine once recovered. Cxs neg. Wbc remains elevated. UAg neg. CT neg for PE. Given toci x1 on 01/27. On dex. Will reculture today with rising temps. Will follow (2) Acute respiratory failure with hypoxia:
[2021-02-01] MEDS: Vital AF 1.2 Cal Liquid 1,000 ML 75 ML GT ×2 (11:49)
[2021-02-01] MEDS: Loperamide (Oral Liquid) 1 MG/7.5 ML ML 4 MG GT ×2 (12:26→20:19)
[2021-02-01] MEDS: Acetaminophen 650 MG/20 ML UDC GT (15:56)
[2021-02-01 16:21] LABS: Bedside Glucose 313 mg/dL (70-110)
[2021-02-01 21:06] LABS: Bedside Glucose 322 mg/dL (70-110)
[2021-02-01 22:31] LABS: Bedside Glucose 233 mg/dL (70-110)
[2021-02-02] VITALS (37 sets, daily range): BP systolic 106–169; BP diastolic 72–99; PULSE 66–106; RESP 16–31; TEMP 37.6–38.5; O2SAT 85–95
[2021-02-02] MEDS: Insulin Lispro 100 UNIT/ML INSULN.PEN SC ×5 (00:12→21:02)
[2021-02-02] MEDS: Vital AF 1.2 Cal Liquid 1,000 ML 75 ML GT ×2 (00:30→15:14)
[2021-02-02 01:51] LABS: Bedside Glucose 266 mg/dL (70-110)
[2021-02-02 04:27] LABS: Absolute Lymphocyte Count 1.44 X10^3/uL (0.83-4.51); Absolute Neutrophil Count 17.9 X10^3/uL (2.0-7.7); Basophil# 0.03 X10^3/uL; Basophil% 0.1 % (0-1); Eosinophil# 0.07 X10^3/uL; Eosinophils% 0.3 % (0-5); Hematocrit 41.7 % (40-54); Hemoglobin 14.4 g/dL (13.0-16.5); Lymphocyte # 1.44 X10^3/ul (0.83-4.51); Lymphocyte % 7.1 % (19-41); Mean Corp Hgb Conc 34.5 g/dL (32-36); Mean Corpuscular Hgb 33.3 pg (27.0-32.0); Mean Corpuscular Volume 96.5 fL (80-94); Monocyte# 0.44 X10^3/uL; Monocyte% 2.2 % (0-10); NRBC Flagged by Analyzer 0.1 % (0-5); Neutrophil # 17.86 X10^3/uL (2.7-7.7); Neutrophil % 88.7 % (47-70); Platelet Count 292 K/mm3 (150-450); RBC Distribution Width CV 11.9 % (11.6-14.6); RBC Distribution Width SD 41.4 fl (35.1-43.9); Red Blood Count 4.32 M/mm3 (4.6-6.2); White Blood Count 20.2 K/mm3 (4.4-11.0)
[2021-02-02 04:41] LABS: Anion Gap 4 (5-15); BUN 31 mg/dL (7-18); BUN/Creat Ratio 43.1 RATIO (10-20); Chloride 101 mmol/L (98-107); Creatinine, Serum 0.72 mg/dL (0.70-1.30); EST Glomerular Filtration Rate 121 mL/min (>60); Est Glom Filt Rate - Afr Amer 147 mL/min (>60); Estimated Creatinine Clearance 122.51 ml/min; Glucose 204 mg/dL (74-106); Potassium 4.2 mmol/L (3.5-5.1); Sodium Level 138 mmol/L (136-145)
--- NOTE | 2021-02-02 07:23 | PN.CC_ITS ---
Assessment & Plan Assessment/Plan (1) Acute respiratory failure with hypoxia: (2) Pneumonia due to COVID-19 virus: PLAN: RECOMMENDATIONS: 1. Continue patient on assist control mode mechanical ventilation. Wean FiO2/PEEP for saturations greater than 90%. 2. Spontaneous breathing and awakening trials per protocol. 3. Initiate mucolytic 4. Continue Decadron to complete 10-day treatment course. 5. Continue twice daily Lovenox as ordered. 6. Challenge with diuretics, increase Lantus 7. Continue appropriate GI prophylaxis. Okay to continue tube feeds from my perspective. 8. Continue Imodium for probable osmotic diarrhea IMPRESSIONS: 1. Acute hypoxemic respiratory failure secondary to COVID-19 pneumonia The patient presented to the hospital with progressive Covid symptoms after having been initially diagnosed at the end of December. He is therefore outside of the window for remdesivir. CTA chest showed no evidence for pulmonary embolism. The patient was emergently intubated in the emergency department. He will be continued on assist control mode mechanical ventilation. FiO2 and PEEP will be weaned to maintain saturations at or above 90%. Some concern for worsening oxygenation secondary to mucous plugging. Mucolytic will be initiated. Patient has had a slight fever and leukocytosis, but no change in secretions. Decadron and prophylactic Lovenox will also be continued. Diuretic therapy can be utilized as needed to maintain euvolemic state. Spontaneous breathing and awakening trials per protocol. 2. Acute kidney injury Resolved. Likely prerenal in etiology. The patient did initially respond to fluid resuscitation. However, supplemental IV fluids have been discontinued at this time. Creatinine has subsequently normalized. We will continue to mon itor urine output. 3. Obesity/hypertension/hyperlipidemia Complicates care, management, recovery and prognosis. Continue home medications as indicated. Okay to continue tube feeds. Increase Lantus. TIME: 35 minutes of critical care time, independent of procedures, was spent addressing the patient's acute hypoxemic respiratory failure secondary to COVID- 19 pneumonia, acute kidney injury, review of all data and collaboration with the care team. (5:30 AM to 6:30 AM) Subjective Subjective Patient did okay overnight. Patient did have some worsening hypoxia and nursing had noted thick secretions. Patient is reporting a sore throat this morning, but otherwise feels he is doing well. No abdominal pain is been reported. Patient did ask for restraints to be removed. Patient understands that he can hurt himself if he were to try to remove supportive devices independently. Objective Data Objective Data Vital Signs: Vital Signs Temp Pulse Resp BP Pulse Ox 37.9 C H 106 H 26 H 169/89 H 88 02/02/21 06:00 02/02/21 06:00 02/02/21 06:00 02/02/21 06:00 02/02/21 06:00 Oxygen Flow Rate (L/min) 15 Oxygen Delivery Method Mechanical Ventilator Weight: 92.306 kg Body Mass Index (BMI) 28.3 Intake & Output: Intake and Output for Last 24 Hours 01/31/21 02/01/21 02/02/21 23:59 23:59 23:59 Intake Total 2991.43 / 3116.43 4321.91 / 4977.91 706.0 / 706.0 Output Total 2550 / 2900 2900 / 2900 Balance 441.43 / 216.43 1421.91 / 2077.91 706.0 / 706.0 Lab / Micro Data Result Diagrams: 02/02/21 04:15 02/02/21 04:15 Labs: Laboratory Results - last 24 hr 02/01/21 05:25: POC Glucose 291 H 02/01/21 11:12: POC Glucose 313 H 02/01/21 15:53: POC Glucose 322 H 02/01/21 21:50: POC Glucose 233 H 02/02/21 00:10: POC Glucose 266 H 02/02/21 04:15: WBC 20.2 H, RBC 4.32 L, Hgb 14.4, Hct 41.7, MCV 96.5 H, MCH 33.3 H, MCHC 34.5, RDW Std Deviation 41.4, RDW Coeff of Blanca 11.9, Plt Count 292, MPV 11.0, Immature Gran % (Auto) 1.600 H, Neut % (Auto) 88.7 H, Lymph % (Auto) 7.1 L , [place] % (Auto) 2.2, Eos % (Auto) 0.3, Baso % (Auto) 0.1, Absolute Neuts (auto) 17.9 H, Absolute Lymphs (auto) 1.44, Nucleated RBC % 0.1 02/02/21 04:15: Sodium 138, Potassium 4.2, Chloride 101, Carbon Dioxide 33.0 H, Anion Gap 4 L, BUN 31 H, Creatinine 0.72, Estim Creat Clear Calc 122.51, Est GFR (MDRD) Af Amer 147, Est GFR (MDRD) Non-Af 121, BUN/Creatinine Ratio 43.1 H, Glucose 204 H, Calcium 9.0 Micro: Microbiology 02/01/21 11:30 Sputum, Induced/Lukens Gram Stain - Final 01/30/21 13:20 Stool C. difficile DNA Amplification - Final 01/28/21 08:20 Sputum, Induced/Lukens Gram Stain - Final 01/28/21 08:20 Sputum, Induced/Lukens Respiratory Culture - Final Mixed normal respiratory eulalia. No Streptococcus pneumoniae, beta-hemolytic Streptococcus or Staphylococcus aureus isolated. 01/27/21 21:40 Urine Catheter - Catheter Urine Culture - Final Culture exhibits no growth. 01/27/21 19:30 Mucosa - Nose Respiratory Panel (PCR) - Final 01/27/21 19:25 Urine Catheter - Catheter Legionella Antigen - Final 01/27/21 19:25 Urine Catheter - Catheter Streptococcus pneumoniae Antigen (M - Final Physical Exam Const no apparent distress Constitutional Narrative: Good vent synchrony. RASS 0. General Appearance: intubated and patient mechanically ventilated Nutritional Appearance: obese HEENT normocephalic and head/scalp atraumatic Mouth: endotracheal tube in place and OG tube in place Eyes PERRL, EOMs intact bilaterally and conjunctivae normal Neck supple General: trachea midline and CVC in place Chest inspection of chest normal Chest: symmetrical chest wall rise; Negative for crepitus Resp Auscultation: diminished lung sounds; Negative for rales, rhonchi or wheezes Cardio regular rate, regular rhythm, S1 normal heart sound, S2 normal heart sound, no murmurs, no rub and no gallops GI normal to inspection, nondistended, normoactive bowel sounds Extremity no clubbing, cyanosis or edema Skin no rashes or lesions noted Neuro Sensorium / Orientation: sedated on vent Psych mental status grossly normal, thought process normal and cooperative Charges/Coding Procedures Hospitalists Procedures: 11201 Critial Care 1st Hr
[2021-02-02] MEDS: Enoxaparin 30 MG/0.3 ML Syringe SC ×2 (08:04→20:52)
[2021-02-02] MEDS: dexAMETHasone 4 MG/ML Vial 6 MG IV (08:06)
[2021-02-02] MEDS: Furosemide 40 MG/4 ML Vial IV ×2 (08:10→15:15)
[2021-02-02] MEDS: Ascorbic Acid 500 MG Tablet 1000 MG GT (08:13)
[2021-02-02] MEDS: Carvedilol 25 MG Tablet GT ×2 (08:13→20:52)
[2021-02-02] MEDS: Chlorhexidine 15 ML PO ×2 (08:14→21:01)
[2021-02-02] MEDS: Acetaminophen 650 MG/20 ML UDC GT ×3 (08:23→20:52)
[2021-02-02 08:41] LABS: Bedside Glucose 190 mg/dL (70-110)
[2021-02-02 11:30] LABS: Bedside Glucose 325 mg/dL (70-110)
[2021-02-02] MEDS: guaiFENesin 10 ML UDC (200MG/10ML) GT (12:32)
[2021-02-02] MEDS: Loperamide (Oral Liquid) 1 MG/7.5 ML ML 4 MG GT (13:45)
--- NOTE | 2021-02-02 13:55 | CASEMGMT ---
Social Work SW attended ICU rounds. Phone call placed to pt and support offered. Carmella was able to visit pt yesterday and was appreciative of this and of good nursing communication. She also states she has good support from her children and friends. Carmella made aware that SW remains available if she should need anything. SW will continue to follow for support. HENNA Oliver
--- NOTE | 2021-02-02 14:57 | PCM.PN.HOSP ---
Subjective Subjective Follow-up on acute respiratory failure/acute COVID-19 pneumonia: Patient was seen and examined. No acute events overnight. Tachycardia appears improved. Temperatures are down. Blood cultures and sputum cultures are pending Objective Data Objective Data Vital Signs: Vital Signs Temp Pulse Resp BP Pulse Ox 99.8 F H 79 31 H 126/77 H 92 02/02/21 13:00 02/02/21 13:13 02/02/21 13:13 02/02/21 13:00 02/02/21 13:13 Oxygen Flow Rate (L/min) 15 Oxygen Delivery Method Mechanical Ventilator Weight: 92.306 kg Body Mass Index (BMI) 28.3 Intake & Output: Intake and Output for Last 24 Hours 01/31/21 02/01/21 02/02/21 23:59 23:59 23:59 Intake Total 2991.43 / 3116.43 4321.91 / 4977.91 891.0 / 891.0 Output Total 2550 / 2900 2900 / 2900 1300 / 1300 Balance 441.43 / 216.43 1421.91 / 2077.91 -409.0 / -409.0 Lab / Micro Data Result Diagrams: 02/02/21 04:15 02/02/21 04:15 Labs: Laboratory Results - last 24 hr 02/01/21 11:12: POC Glucose 313 H 02/01/21 15:53: POC Glucose 322 H 02/01/21 21:50: POC Glucose 233 H 02/02/21 00:10: POC Glucose 266 H 02/02/21 04:15: WBC 20.2 H, RBC 4.32 L, Hgb 14.4, Hct 41.7, MCV 96.5 H, MCH 33.3 H, MCHC 34.5, RDW Std Deviation 41.4, RDW Coeff of Blanca 11.9, Plt Count 292, MPV 11.0, Immature Gran % (Auto) 1.600 H, Neut % (Auto) 88.7 H, Lymph % (Auto) 7.1 L, [place] % (Auto) 2.2, Eos % (Auto) 0.3, Baso % (Auto) 0.1, Absolute Neuts (auto) 17.9 H, Absolute Lymphs (auto) 1.44, Nucleated RBC % 0.1 02/02/21 04:15: Sodium 138, Potassium 4.2, Chloride 101, Carbon Dioxide 33.0 H, Anion Gap 4 L, BUN 31 H, Creatinine 0.72, Estim Creat Clear Calc 122.51, Est GFR (MDRD) Af Amer 147, Est GFR (MDRD) Non-Af 121, BUN/Creatinine Ratio 43.1 H, Glucose 204 H, Calcium 9.0 02/02/21 08:01: POC Glucose 190 H 02/02/21 11:24: POC Glucose 325 H Micro: Microbiology 01/27/21 18:30 Blood Culture (Wb) - Anticubital Left Blood Culture - Final No growth in 5 days. 01/27/21 18:33 Blood Culture (Wb) - Central Line Blood Culture - Final No growth in 5 days. 02/01/21 11:30 Sputum, Induced/Lukens Gram Stain - Final 01/30/21 13:20 Stool C. difficile DNA Amplification - Final 01/28/21 08:20 Sputum, Induced/Lukens Gram Stain - Final 01/28/21 08:20 Sputum, Induced/Lukens Respiratory Culture - Final Mixed normal respiratory eulalia. No Streptococcus pneumoniae, beta-hemolytic Streptococcus or Staphylococcus aureus isolated. 01/27/21 21:40 Urine Catheter - Catheter Urine Culture - Final Culture exhibits no growth. 01/27/21 19:30 Mucosa - Nose Respiratory Panel (PCR) - Final 01/27/21 19:25 Urine Catheter - Catheter Legionella Antigen - Final 01/27/21 19:25 Urine Catheter - Catheter Streptococcus pneumoniae Antigen (M - Final Physical Exam Narrative Physical exam: General: Alert, oriented x3, cooperative, intubated, on mechanical ventilator HEENT: Atraumatic Oral: Moist Mucosa Neck: Supple Lungs: Clear to auscultation Cardiovascular: HS I+II, regular, no murmurs Abdomen: Bowel Sounds Present, Soft, Non Tender Extremities: No edema Assessment & Plan Assessment/Plan (1) Acute respiratory failure with hypoxia: (2) Pneumonia due to COVID-19 virus: PLAN: 1. Acute hypoxic respiratory failure secondary to acute COVID-19 pneumonia, remains the same Intubated from the ED Symptoms started on 01/16/21 Patient received a dose of Tocilizumab on 01/27 Chest X-ray and CTA chest shows multifocal infiltrates; acute PE ruled Continue on Decadron 2. Severe sepsis secondary to acute COVID-19 pneumonia, improved Sputum culture shows normal respiratory eulalia Urine cultures showed no growth Respiratory panel is unremarkable Urine Legionella cervical antigen is negative Blood cultures are pending Off antibiotics, ID following 3. Hyperglycemia secondary to decadron, remains elevated Changes made to Lantus with insulin sliding scale 4. Rest of his chronic medical conditions remained stable?hypertension, dyslipidemia Not on antihypertensives Will continue to monitor Charges/Coding Visit Charges Inpatient E&M: 96926 Subs Hosp L3
[2021-02-02] MEDS: Menthol/Lanolin/Calamine/Znox 113 GM Tube 1 APPLIC TOPICAL ×2 (15:20→21:02)
[2021-02-02 18:16] LABS: Bedside Glucose 238 mg/dL (70-110)
[2021-02-02 21:45] LABS: Bedside Glucose 356 mg/dL (70-110)
[2021-02-03] VITALS (35 sets, daily range): BP systolic 104–143; BP diastolic 65–98; PULSE 65–85; RESP 12–32; TEMP 37.3–38.4; O2SAT 88–97
[2021-02-03] MEDS: Acetaminophen 650 MG/20 ML UDC GT ×2 (02:03→10:48)
[2021-02-03] MEDS: Vital AF 1.2 Cal Liquid 1,000 ML 75 ML GT ×2 (04:53→17:22)
[2021-02-03] MEDS: Insulin Lispro 100 UNIT/ML INSULN.PEN SC ×4 (05:01→21:10)
[2021-02-03] MEDS: Menthol/Lanolin/Calamine/Znox 113 GM Tube 1 APPLIC TOPICAL ×3 (05:02→21:02)
[2021-02-03 05:20] LABS: Absolute Lymphocyte Count 0.78 X10^3/uL (0.83-4.51); Basophil# 0.01 X10^3/uL; Basophil% 0.1 % (0-1); Eosinophil# 0.11 X10^3/uL; Eosinophils% 0.6 % (0-5); Hematocrit 44.3 % (40-54); Hemoglobin 15.3 g/dL (13.0-16.5); Lymphocyte # 0.78 X10^3/ul (0.83-4.51); Lymphocyte % 4.3 % (19-41); Mean Corp Hgb Conc 34.5 g/dL (32-36); Mean Corpuscular Hgb 33.4 pg (27.0-32.0); Mean Corpuscular Volume 96.7 fL (80-94); Mean Platelet Vol. 10.7 fl (6.2-12.0); Monocyte# 0.27 X10^3/uL; Monocyte% 1.5 % (0-10); NRBC Flagged by Analyzer 0.1 % (0-5); Neutrophil # 16.97 X10^3/uL (2.7-7.7); POSITIVE MORPHOLOGY YES; Platelet Count 244 K/mm3 (150-450); RBC Distribution Width CV 12.1 % (11.6-14.6); RBC Distribution Width SD 42.5 fl (35.1-43.9); Red Blood Count 4.58 M/mm3 (4.6-6.2); White Blood Count 18.2 K/mm3 (4.4-11.0)
[2021-02-03 05:30] LABS: Differential Indicated SCAN CRITERIA MET
[2021-02-03 05:38] LABS: ALB/GLOB Ratio 0.7 RATIO (0.9-2.4); AST(SGOT) 30 U/L (15-37); Alanine Aminotransfer ALT/SGPT 85 U/L (16-61); Albumin, Serum 2.6 g/dL (3.2-5.0); Alkaline Phosphatase 71 U/L (45-117); Anion Gap 8 (5-15); BUN 33 mg/dL (7-18); BUN/Creat Ratio 47.2 RATIO (10-20); Calcium,Total 8.8 mg/dL (8.5-10.1); Chloride 96 mmol/L (98-107); EST Glomerular Filtration Rate 125 mL/min (>60); Est Glom Filt Rate - Afr Amer 152 mL/min (>60); Estimated Creatinine Clearance 126.01 ml/min; Globulin 3.5 g/dL (2.2-4.2); Glucose 271 mg/dL (74-106); Protein, Total 6.1 g/dL (6.4-8.2); Sodium Level 136 mmol/L (136-145)
[2021-02-03 05:48] LABS: Differential Comment SCANNED
--- NOTE | 2021-02-03 06:57 | PCM.PN.INT ---
Assessment & Plan Assessment/Plan (1) Acute respiratory failure with hypoxia: (2) Pneumonia due to COVID-19 virus: PLAN: RECOMMENDATIONS: 1. Continue patient on assist control mode mechanical ventilation. Wean FiO2/PEEP for saturations greater than 90%. 2. Spontaneous breathing and awakening trials per protocol. 3. Continue mucolytic and antibiotics pending culture results 4. Continue Decadron to complete 10-day treatment course (02/06/2021). 5. Continue twice daily Lovenox as ordered. 6. Challenge with diuretics, increase Lantus 7. Continue appropriate GI prophylaxis. Okay to continue tube feeds from my perspective. 8. Continue Imodium for probable osmotic diarrhea IMPRESSIONS: 1. Acute hypoxemic respiratory failure secondary to COVID-19 pneumonia The patient presented to the hospital with progressive Covid symptoms after having been initially diagnosed at the end of December. He is therefore outside of the window for remdesivir. CTA chest showed no evidence for pulmonary embolism. The patient was emergently intubated in the emergency department. He will be continued on assist control mode mechanical ventilation. FiO2 and PEEP will be weaned to maintain saturations at or above 90%. Sputum culture is showing significant gram-positive cocci. Patient was placed on antibiotics yesterday with a slight improvement in white blood cell count. Await culture results. Continue aggressive pulmonary toileting. 2. Acute kidney injury Resolved. Likely prerenal in etiology. The patient did initially respond to fluid resuscitation. However, supplemental IV fluids have been discontinued at this time. Creatinine has subsequently normalized. We will continue to monitor urine output. Continue to diurese intermittently to attempt to euvolemia. 3. Obesity/hypertension/hyperlipidemia Complicates care, management, recovery and prognosis. Continue home medications as indicated. Okay to continue tube feeds. Increase Lantus. TIME: 32 minutes of critical care time, independent of procedures, was spent addressing the patient's acute hypoxemic respiratory failure secondary to COVID-19 pneumonia, acute kidney injury, review of all data and collaboration with the care team. (5:40 AM to 6:40 AM) Subjective Subjective Patient did okay overnight. Patient is still requiring significant FiO2 to maintain saturations. Patient did have a fever overnight and nursing continues to report significant secretions. This may be slightly improved compared to previous. Objective Data Objective Data Vital Signs: Vital Signs Temp Pulse Resp BP Pulse Ox 37.8 C H 78 24 H 139/81 H 89 02/03/21 06:00 02/03/21 06:00 02/03/21 06:00 02/03/21 06:00 02/03/21 06:00 Oxygen Flow Rate (L/min) 15 Oxygen Delivery Method Mechanical Ventilator Weight: 93.485 kg Body Mass Index (BMI) 28.3 Intake & Output: Intake and Output for Last 24 Hours 02/01/21 02/02/21 02/03/21 23:59 23:59 23:59 Intake Total 4321.91 / 4977.91 2023.42 / 2424.92 1021.25 / 1021.25 Output Total 2900 / 2900 1900 / 2250 850 / 850 Balance 1421.91 / 2077.91 123.42 / 174.92 171.25 / 171.25 Lab / Micro Data Result Diagrams: 02/03/21 05:10 02/03/21 05:10 Labs: Laboratory Results - last 24 hr 02/02/21 08:01: POC Glucose 190 H 02/02/21 11:24: POC Glucose 325 H 02/02/21 18:01: POC Glucose 238 H 02/02/21 20:50: POC Glucose 356 H 02/03/21 05:10: WBC 18.2 H, RBC 4.58 L, Hgb 15.3, Hct 44.3, MCV 96.7 H, MCH 33.4 H, MCHC 34.5, RDW Std Deviation 42.5, RDW Coeff of Blanca 12.1, Plt Count 244, MPV 10.7, Immature Gran % (Auto) 0.500, Neut % (Auto) 93.0 H, Lymph % (Auto) 4.3 L, [place] % (Auto) 1.5, Eos % (Auto) 0.6, Baso % (Auto) 0.1, Absolute Neuts (auto) 17.0 H, Absolute Lymphs (auto) 0.78 L, Nucleated RBC % 0.1, Differential Comment SCANNED 02/03/21 05:10: Sodium 136, Potassium 4.0, Chloride 96 L, Carbon Dioxide 32.0, Anion Gap 8, BUN 33 H, Creatinine 0.70, Estim Creat Clear Calc 126.01, Est GFR (MDRD) Af Amer 152, Est GFR (MDRD) Non-Af 125, BUN/Creatinine Ratio 47.2 H, Glucose 271 H, Calcium 8.8, Total Bilirubin 0.60, AST 30, ALT 85 H, Alkaline Phosphatase 71, Total Protein 6.1 L, Albumin 2.6 L, Globulin 3.5, Albumin/Globulin Ratio 0.7 L Micro: Microbiology 01/27/21 18:30 Blood Culture (Wb) - Anticubital Left Blood Culture - Final No growth in 5 days. 01/27/21 18:33 Blood Culture (Wb) - Central Line Blood Culture - Final No growth in 5 days. 02/01/21 11:30 Sputum, Induced/Lukens Gram Stain - Final 01/30/21 13:20 Stool C. difficile DNA Amplification - Final 01/28/21 08:20 Sputum, Induced/Lukens Gram Stain - Final 01/28/21 08:20 Sputum, Induced/Lukens Respiratory Culture - Final Mixed normal respiratory eulalia. No Streptococcus pneumoniae, beta-hemolytic Streptococcus or Staphylococcus aureus isolated. 01/27/21 21:40 Urine Catheter - Catheter Urine Culture - Final Culture exhibits no growth. 01/27/21 19:30 Mucosa - Nose Respiratory Panel (PCR) - Final 01/27/21 19:25 Urine Catheter - Catheter Legionella Antigen - Final 01/27/21 19:25 Urine Catheter - Catheter Streptococcus pneumoniae Antigen (M - Final Physical Exam Const no apparent distress Constitutional Narrative: Good vent synchrony. RASS 0. General Appearance: intubated and patient mechanically ventilated Nutritional Appearance: obese HEENT normocephalic and head/scalp atraumatic Mouth: endotracheal tube in place and OG tube in place Eyes PERRL, EOMs intact bilaterally and conjunctivae normal Neck supple General: trachea midline and CVC in place Chest inspection of chest normal Chest: symmetrical chest wall rise; Negative for crepitus Resp Auscultation: rhonchi throughout and diminished lung sounds; Negative for rales or wheezes Cardio regular rate, regular rhythm, S1 normal heart sound, S2 normal heart sound, no murmurs, no rub and no gallops GI normal to inspection, nondistended, normoactive bowel sounds Extremity no clubbing, cyanosis or edema Skin no rashes or lesions noted Neuro Sensorium / Orientation: sedated on vent Psych mental status grossly normal, thought process normal and cooperative Charges/Coding Procedures Hospitalists Procedures: 42500 Critial Care 1st Hr
[2021-02-03 08:21] LABS: Bedside Glucose 277 mg/dL (70-110)
[2021-02-03] MEDS: Enoxaparin 30 MG/0.3 ML Syringe SC ×2 (09:03→21:02)
[2021-02-03] MEDS: Furosemide 40 MG/4 ML Vial IV (09:04)
[2021-02-03] MEDS: dexAMETHasone 4 MG/ML Vial 6 MG IV (09:05)
[2021-02-03] MEDS: Carvedilol 25 MG Tablet GT ×2 (09:07→21:02)
[2021-02-03] MEDS: Chlorhexidine 15 ML PO ×2 (09:07→21:03)
[2021-02-03] MEDS: guaiFENesin 10 ML UDC (200MG/10ML) GT (10:49)
[2021-02-03] MEDS: Ascorbic Acid 500 MG Tablet 1000 MG GT (10:55)
[2021-02-03 11:06] LABS: Bedside Glucose 374 mg/dL (70-110)
[2021-02-03] MEDS: CHLORHEXIDINE GLUC 2% CLOTH 1 EACH TOWELETTE TOPICAL (12:18)
--- NOTE | 2021-02-03 12:26 | PCM.RX.CS ---
Consult Pharmacy has been consulted to manage selected antiobiotic: Vancomycin Type of Consult: New start Suspected Infection: Skin/Soft tissue Prior Doses of Antibiotics Received/Current Regimen: 2000MG GIVEN 02/03/21 @ 1218 Labs: Sodium 136 mmol/L (136-145) 02/03/21 05:10 Potassium 4.0 mmol/L (3.5-5.1) 02/03/21 05:10 Chloride 96 mmol/L (98-107) L 02/03/21 05:10 Carbon Dioxide 32.0 mmol/L (21.0-32.0) 02/03/21 05:10 Anion Gap 8 (5-15) 02/03/21 05:10 BUN 33 mg/dL (7-18) H 02/03/21 05:10 Creatinine 0.70 mg/dL (0.70-1.30) 02/03/21 05:10 Est GFR (MDRD) Af Amer 152 mL/min (>60) 02/03/21 05:10 Est GFR (MDRD) Non-Af 125 mL/min (>60) 02/03/21 05:10 BUN/Creatinine Ratio 47.2 RATIO (10-20) H 02/03/21 05:10 Glucose 271 mg/dL (74-106) H 02/03/21 05:10 Microbiology: Microbiology 02/01/21 11:30 Sputum, Induced/Lukens Gram Stain - Final 02/01/21 11:30 Sputum, Induced/Lukens Respiratory Culture - Final Staphylococcus aureus 01/27/21 18:30 Blood Culture (Wb) - Anticubital Left Blood Culture - Final No growth in 5 days. 01/27/21 18:33 Blood Culture (Wb) - Central Line Blood Culture - Final No growth in 5 days. 01/30/21 13:20 Stool C. difficile DNA Amplification - Final 01/28/21 08:20 Sputum, Induced/Lukens Gram Stain - Final 01/28/21 08:20 Sputum, Induced/Lukens Respiratory Culture - Final Mixed normal respiratory eulalia. No Streptococcus pneumoniae, beta-hemolytic Streptococcus or Staphylococcus aureus isolated. 01/27/21 21:40 Urine Catheter - Catheter Urine Culture - Final Culture exhibits no growth. 01/27/21 19:30 Mucosa - Nose Respiratory Panel (PCR) - Final 01/27/21 19:25 Urine Catheter - Catheter Legionella Antigen - Final 01/27/21 19:25 Urine Catheter - Catheter Streptococcus pneumoniae Antigen (M - Final Weight used for dosin.4 kg Estimated Creatinine Clearance: 126 Goal Trough: 15-20 mcg/mL Pharmacy Plan for Drug Dosing: GIVE PATIENT 1000MG EVERY 8 HOURS STARTING AT 2000 ON 02/03/21 Pharmacy Service will continue to monitor and adjust dosing as required. Follow-Up Labs: Trough Vancomycin Labs to be done on [date and time ordered]: 02/04/2021 @1135
--- NOTE | 2021-02-03 13:32 | PN.HOSP_ITS ---
Subjective Subjective Follow-up on acute respiratory failure/COVID-19 pneumonia: Patient was seen and examined. His fevers and tachycardia have gotten better with the start of IV Zosyn. Sputum cultures growing staph aureus Would add vancomycin. He remains alert. Lightly sedated. Objective Data Objective Data Vital Signs: Vital Signs Temp Pulse Resp BP Pulse Ox 99.9 F H 72 20 H 111/70 93 02/03/21 12:00 02/03/21 12:00 02/03/21 12:00 02/03/21 12:00 02/03/21 12:00 Oxygen Flow Rate (L/min) 15 Oxygen Delivery Method Mechanical Ventilator Weight: 93.485 kg Body Mass Index (BMI) 28.3 Intake & Output: Intake and Output for Last 24 Hours 02/01/21 02/02/21 02/03/21 23:59 23:59 23:59 Intake Total 4321.91 / 4977.91 2023.42 / 2424.92 1264.58 / 1264.58 Output Total 2900 / 2900 1900 / 2250 2024 / 2024 Balance 1421.91 / 2077.91 123.42 / 174.92 -760.42 / -760.42 Lab / Micro Data Result Diagrams: 02/03/21 05:10 02/03/21 05:10 Labs: Laboratory Results - last 24 hr 02/02/21 18:01: POC Glucose 238 H 02/02/21 20:50: POC Glucose 356 H 02/03/21 04:55: POC Glucose 277 H 02/03/21 05:10: WBC 18.2 H, RBC 4.58 L, Hgb 15.3, Hct 44.3, MCV 96.7 H, MCH 33.4 H, MCHC 34.5, RDW Std Deviation 42.5, RDW Coeff of Blanca 12.1, Plt Count 244, MPV 10.7, Immature Gran % (Auto) 0.500, Neut % (Auto) 93.0 H, Lymph % (Auto) 4.3 L, [place] % (Auto) 1.5, Eos % (Auto) 0.6, Baso % (Auto) 0.1, Absolute Neuts (auto) 17.0 H, Absolute Lymphs (auto) 0.78 L, Nucleated RBC % 0.1, Differential Comment SCANNED 02/03/21 05:10: Sodium 136, Potassium 4.0, Chloride 96 L, Carbon Dioxide 32.0, Anion Gap 8, BUN 33 H, Creatinine 0.70, Estim Creat Clear Calc 126.01, Est GFR (MDRD) Af Amer 152, Est GFR (MDRD) Non-Af 125, BUN/Creatinine Ratio 47.2 H, Glucose 271 H, Calcium 8.8, Total Bilirubin 0.60, AST 30, ALT 85 H, Alkaline Phosphatase 71, Total Protein 6.1 L, Albumin 2.6 L, Globulin 3.5, Albumin/Globulin Ratio 0.7 L 02/03/21 10:48: POC Glucose 374 H Micro: Microbiology 02/01/21 11:30 Sputum, Induced/Lukens Gram Stain - Final 02/01/21 11:30 Sputum, Induced/Lukens Respiratory Culture - Final Staphylococcus aureus 01/27/21 18:30 Blood Culture (Wb) - Anticubital Left Blood Culture - Final No growth in 5 days. 01/27/21 18:33 Blood Culture (Wb) - Central Line Blood Culture - Final No growth in 5 days. 01/30/21 13:20 Stool C. difficile DNA Amplification - Final 01/28/21 08:20 Sputum, Induced/Lukens Gram Stain - Final 01/28/21 08:20 Sputum, Induced/Lukens Respiratory Culture - Final Mixed normal respiratory eulalia. No Streptococcus pneumoniae, beta-hemolytic Streptococcus or Staphylococcus aureus isolated. 01/27/21 21:40 Urine Catheter - Catheter Urine Culture - Final Culture exhibits no growth. 01/27/21 19:30 Mucosa - Nose Respiratory Panel (PCR) - Final 01/27/21 19:25 Urine Catheter - Catheter Legionella Antigen - Final 01/27/21 19:25 Urine Catheter - Catheter Streptococcus pneumoniae Antigen (M - Final Physical Exam Narrative Physical exam: General: Alert, oriented x3, cooperative, intubated, on mechanical ventilator HEENT: Atraumatic Oral: Moist Mucosa Neck: Supple Lungs: Clear to auscultation Cardiovascular: HS I+II, regular, no murmurs Abdomen: Bowel Sounds Present, Soft, Non Tender Extremities: No edema Assessment & Plan Assessment/Plan (1) Acute respiratory failure with hypoxia: (2) Pneumonia due to COVID-19 virus: PLAN: 1. Acute hypoxic respiratory failure secondary to acute COVID-19 pneumonia/staph aureus pneumonia Intubated from the ED Symptoms started on 01/16/21 Patient received a dose of Tocilizumab on 01/27 Chest X-ray and CTA chest shows multifocal infiltrates; acute PE ruled Continue on Decadron Continue on IV Zosyn and vancomycin 2. Severe sepsis secondary to acute COVID-19 pneumonia/staph aureus pneumonia, improved Sputum culture shows normal respiratory eulalia Repeat sputum culture shows staph aureus Urine cultures showed no growth Respiratory panel is unremarkable Urine Legionella and streptococcal antigen is negative Blood cultures are pending We will continue IV Zosyn and vancomycin 3. Hyperglycemia secondary to decadron, remains elevated Continue on increased Lantus, continue on insulin sliding scale 4. Rest of his chronic medical conditions remained stable?hypertension, dyslipidemia Not on antihypertensives Will continue to monitor Charges/Coding Visit Charges Inpatient E&M: 29780 Subs Hosp L3
[2021-02-03 13:43] LABS: Vancomycin, Trough Level < 0.8 ug/mL (5.0-15.0)
[2021-02-03 21:00] LABS: Bedside Glucose 242 mg/dL (70-110)
[2021-02-03] MEDS: Vancomycin IV 1,000 MG/200 ML BAG 200 MG IV (21:22)
[2021-02-03 23:56] LABS: Bedside Glucose 221 mg/dL (70-110)
[2021-02-04] VITALS (34 sets, daily range): BP systolic 94–136; BP diastolic 65–93; PULSE 59–80; RESP 15–25; TEMP 36.8–37.7; O2SAT 90–100
[2021-02-04] MEDS: Vancomycin IV 1,000 MG/200 ML BAG 200 MG IV (03:00)
[2021-02-04 03:41] LABS: Absolute Lymphocyte Count 0.69 X10^3/uL (0.83-4.51); Absolute Neutrophil Count 17.2 X10^3/uL (2.0-7.7); Basophil% 0.5 % (0-1); Eosinophil# 0.04 X10^3/uL; Eosinophils% 0.2 % (0-5); Hematocrit 39.6 % (40-54); Hemoglobin 13.6 g/dL (13.0-16.5); Lymphocyte # 0.69 X10^3/ul (0.83-4.51); Lymphocyte % 3.7 % (19-41); Mean Corp Hgb Conc 34.3 g/dL (32-36); Mean Corpuscular Hgb 33.5 pg (27.0-32.0); Mean Corpuscular Volume 97.5 fL (80-94); Monocyte# 0.53 X10^3/uL; Monocyte% 2.8 % (0-10); NRBC Flagged by Analyzer 0 % (0-5); Neutrophil # 17.24 X10^3/uL (2.7-7.7); Neutrophil % 91.8 % (47-70); POSITIVE MORPHOLOGY YES; Platelet Count 213 K/mm3 (150-450); RBC Distribution Width CV 12.1 % (11.6-14.6); RBC Distribution Width SD 43.2 fl (35.1-43.9); Red Blood Count 4.06 M/mm3 (4.6-6.2); White Blood Count 18.8 K/mm3 (4.4-11.0)
[2021-02-04 03:42] LABS: Differential Indicated SCAN CRITERIA MET
[2021-02-04 03:49] LABS: ALB/GLOB Ratio 0.7 RATIO (0.9-2.4); AST(SGOT) 21 U/L (15-37); Alanine Aminotransfer ALT/SGPT 60 U/L (16-61); Albumin, Serum 2.3 g/dL (3.2-5.0); Alkaline Phosphatase 74 U/L (45-117); Anion Gap 7 (5-15); BUN 30 mg/dL (7-18); BUN/Creat Ratio 45.2 RATIO (10-20); Calcium,Total 8.6 mg/dL (8.5-10.1); Chloride 97 mmol/L (98-107); Creatinine, Serum 0.66 mg/dL (0.70-1.30); EST Glomerular Filtration Rate 133 mL/min (>60); Est Glom Filt Rate - Afr Amer 161 mL/min (>60); Estimated Creatinine Clearance 133.65 ml/min; Globulin 3.3 g/dL (2.2-4.2); Glucose 262 mg/dL (74-106); Potassium 4.1 mmol/L (3.5-5.1); Protein, Total 5.6 g/dL (6.4-8.2); Sodium Level 137 mmol/L (136-145)
[2021-02-04] MEDS: CHLORHEXIDINE GLUC 2% CLOTH 1 EACH TOWELETTE TOPICAL (06:05)
[2021-02-04] MEDS: Menthol/Lanolin/Calamine/Znox 113 GM Tube 1 APPLIC TOPICAL ×3 (06:06→21:18)
[2021-02-04] MEDS: Insulin Lispro 100 UNIT/ML INSULN.PEN SC ×2 (06:25→11:15)
[2021-02-04] MEDS: Vital AF 1.2 Cal Liquid 1,000 ML 75 ML GT (06:27)
--- NOTE | 2021-02-04 07:09 | PN.CC_ITS ---
Assessment & Plan Assessment/Plan (1) Acute respiratory failure with hypoxia: (2) Pneumonia due to COVID-19 virus: PLAN: RECOMMENDATIONS: 1. Continue patient on assist control mode mechanical ventilation. Wean FiO2/PEEP for saturations greater than 90%. 2. Spontaneous breathing and awakening trials per protocol. 3. Continue mucolytic and antibiotics pending complete culture results 4. Continue Decadron to complete 10-day treatment course (02/06/2021). 5. Continue twice daily Lovenox as ordered. 6. Challenge with diuretics as tolerated by labs, increase Lantus 7. Continue appropriate GI prophylaxis. Okay to continue tube feeds from my perspective. 8. Continue Imodium for probable osmotic diarrhea IMPRESSIONS: 1. Acute hypoxemic respiratory failure secondary to COVID-19 pneumonia The patient presented to the hospital with progressive Covid symptoms after having been initially diagnosed at the end of December. He is therefore outside of the window for remdesivir. CTA chest showed no evidence for p ulmonary embolism. The patient was emergently intubated in the emergency department. He will be continued on assist control mode mechanical ventilation. FiO2 and PEEP will be weaned to maintain saturations at or above 90%. Sputum culture is showing staph aureus. Await sensitivities. Patient was expanded on antibiotics yesterday with a slight improvement in white blood cell count. Continue aggressive pulmonary toileting. 2. Acute kidney injury Resolved. Likely prerenal in etiology. The patient did initially respond to fluid resuscitation. However, supplemental IV fluids have been discontinued at this time. Creatinine has subsequently normalized. We will continue to monitor urine output. Continue to diurese intermittently to attempt to euvolemia. 3. Obesity/hypertension/hyperlipidemia Complicates care, management, recovery and prognosis. Continue home medications as indicated. Okay to continue tube feeds. Increase Lantus. TIME: 34 minutes of critical care time, independent of procedures, was spent addressing the patient's acute hypoxemic respiratory failure secondary to COVID- 19 pneumonia, acute kidney injury, review of all data and collaboration with the care team. (6:10 AM to 7:10 AM) Subjective Subjective Patient did well overnight. No acute issues were reported. Patient has vicki nued to have increased secretions. Patient is now growing staph aureus from his sputum. Oxygen status has remained relatively stable. Objective Data Objective Data Vital Signs: Vital Signs Temp Pulse Resp BP Pulse Ox 37.3 C 70 20 H 114/67 94 02/04/21 07:00 02/04/21 07:00 02/04/21 07:00 02/04/21 07:00 02/04/21 07:00 Oxygen Flow Rate (L/min) 15 Oxygen Delivery Method Mechanical Ventilator Weight: 95.118 kg Body Mass Index (BMI) 28.3 Intake & Output: Intake and Output for Last 24 Hours 02/02/21 02/03/21 02/04/21 23:59 23:59 23:59 Intake Total 2023.42 / 2424.92 4442.46 / 4454.96 986.12 / 986.12 Output Total 1900 / 2250 3000 / 3000 425 / 425 Balance 123.42 / 174.92 1442.46 / 1454.96 561.12 / 561.12 Lab / Micro Data Result Diagrams: 02/04/21 03:15 02/04/21 03:15 Labs: Laboratory Results - last 24 hr 02/03/21 04:55: POC Glucose 277 H 02/03/21 10:48: POC Glucose 374 H 02/03/21 12:30: Vancomycin Trough < 0.8 L 02/03/21 17:19: POC Glucose 242 H 02/03/21 21:09: POC Glucose 221 H 02/04/21 03:15: WBC 18.8 H, RBC 4.06 L, Hgb 13.6, Hct 39.6 L, MCV 97.5 H, MCH 33.5 H, MCHC 34.3, RDW Std Deviation 43.2, RDW Coeff of Blanca 12.1, Plt Count 213, MPV 11.0, Immature Gran % (Auto) 1.000 H, Neut % (Auto) 91.8 H, Lymph % (Auto) 3.7 L, [place] % (Auto) 2.8, Eos % (Auto) 0.2, Baso % (Auto) 0.5, Absolute Neuts (auto) 17.2 H, Absolute Lymphs (auto) 0.69 L, Nucleated RBC % 0 02/04/21 03:15: Sodium 137, Potassium 4.1, Chloride 97 L, Carbon Dioxide 33.0 H, Anion Gap 7, BUN 30 H, Creatinine 0.66 L, Estim Creat Clear Calc 133.65, Est GFR (MDRD) Af Amer 161, Est GFR (MDRD) Non-Af 133, BUN/Creatinine Ratio 45.2 H, Glucose 262 H, Calcium 8.6, Total Bilirubin 0.50, AST 21, ALT 60, Alkaline Phosphatase 74, Total Protein 5.6 L, Albumin 2.3 L, Globulin 3.3, Albumin/Globulin Ratio 0.7 L Micro: Microbiology 02/01/21 11:45 Blood Culture (Wb) - Left Wrist Blood Culture - Preliminary No growth in 48 hours. 02/01/21 11:25 Blood Culture (Wb) - Central Line Blood Culture - Preliminary No growth in 48 hours. 02/01/21 11:30 Sputum, Induced/Lukens Gram Stain - Final 02/01/21 11:30 Sputum, Induced/Lukens Respiratory Culture - Final Staphylococcus aureus 01/27/21 18:30 Blood Culture (Wb) - Anticubital Left Blood Culture - Final No growth in 5 days. 01/27/21 18:33 Blood Culture (Wb) - Central Line Blood Culture - Final No growth in 5 days. 01/30/21 13:20 Stool C. difficile DNA Amplification - Final 01/28/21 08:20 Sputum, Induced/Lukens Gram Stain - Final 01/28/21 08:20 Sputum, Induced/Lukens Respiratory Culture - Final Mixed normal respiratory eulalia. No Streptococcus pneumoniae, beta-hemolytic Streptococcus or Staphylococcus aureus isolated. 01/27/21 21:40 Urine Catheter - Catheter Urine Culture - Final Culture exhibits no growth. 01/27/21 19:30 Mucosa - Nose Respiratory Panel (PCR) - Final 01/27/21 19:25 Urine Catheter - Catheter Legionella Antigen - Final 01/27/21 19:25 Urine Catheter - Catheter Streptococcus pneumoniae Antigen (M - Final Physical Exam Const no apparent distress Constitutional Narrative: Good vent synchrony. RASS 0. General Appearance: intubated and patient mechanically ventilated Nutritional Appearance: obese HEENT normocephalic and head/scalp atraumatic Mouth: endotracheal tube in place and OG tube in place Eyes PERRL, EOMs intact bilaterally and conjunctivae normal Neck supple General: trachea midline and CVC in place Chest inspection of chest normal Chest: symmetrical chest wall rise; Negative for crepitus Resp Auscultation: rhonchi throughout and diminished lung sounds; Negative for rales or wheezes Cardio regular rate, regular rhythm, S1 normal heart sound, S2 normal heart sound, no murmurs, no rub and no gallops GI normal to inspection, nondistended, normoactive bowel sounds Extremity no clubbing, cyanosis or edema Skin no rashes or lesions noted Neuro Sensorium / Orientation: sedated on vent Psych mental status grossly normal, thought process normal and cooperative Charges/Coding Procedures Hospitalists Procedures: 40387 Critial Care 1st Hr
--- NOTE | 2021-02-04 08:07 | PCM.PN.HOSP ---
Subjective Subjective Follow-up on acute respiratory failure/acute COVID-19 pneumonia: Patient was seen and examined. His abdomen appears distended. He has not had a bowel movement in 2 days. Objective Data Objective Data Vital Signs: Vital Signs Temp Pulse Resp BP Pulse Ox 99.1 F 70 19 H 114/67 95 02/04/21 07:00 02/04/21 08:03 02/04/21 08:03 02/04/21 07:00 02/04/21 08:03 Oxygen Flow Rate (L/min) 15 Oxygen Delivery Method Mechanical Ventilator Weight: 95.118 kg Body Mass Index (BMI) 28.3 Intake & Output: Intake and Output for Last 24 Hours 02/02/21 02/03/21 02/04/21 23:59 23:59 23:59 Intake Total 2023.42 / 2424.92 4442.46 / 4454.96 986.12 / 986.12 Output Total 1900 / 2250 3000 / 3000 425 / 425 Balance 123.42 / 174.92 1442.46 / 1454.96 561.12 / 561.12 Lab / Micro Data Result Diagrams: 02/04/21 03:15 02/04/21 03:15 Labs: Laboratory Results - last 24 hr 02/03/21 04:55: POC Glucose 277 H 02/03/21 10:48: POC Glucose 374 H 02/03/21 12:30: Vancomycin Trough < 0.8 L 02/03/21 17:19: POC Glucose 242 H 02/03/21 21:09: POC Glucose 221 H 02/04/21 03:15: WBC 18.8 H, RBC 4.06 L, Hgb 13.6, Hct 39.6 L, MCV 97.5 H, MCH 33.5 H, MCHC 34.3, RDW Std Deviation 43.2, RDW Coeff of Blanca 12.1, Plt Count 213, MPV 11.0, Immature Gran % (Auto) 1.000 H, Neut % (Auto) 91.8 H, Lymph % (Auto) 3.7 L, Bartholomew % (Auto) 2.8, Eos % (Auto) 0.2, Baso % (Auto) 0.5, Absolute Neuts (auto) 17.2 H, Absolute Lymphs (auto) 0.69 L, Nucleated RBC % 0 02/04/21 03:15: Sodium 137, Potassium 4.1, Chloride 97 L, Carbon Dioxide 33.0 H, Anion Gap 7, BUN 30 H, Creatinine 0.66 L, Estim Creat Clear Calc 133.65, Est GFR (MDRD) Af Amer 161, Est GFR (MDRD) Non-Af 133, BUN/Creatinine Ratio 45.2 H, Glucose 262 H, Calcium 8.6, Total Bilirubin 0.50, AST 21, ALT 60, Alkaline Phosphatase 74, Total Protein 5.6 L, Albumin 2.3 L, Globulin 3.3, Albumin/Globulin Ratio 0.7 L Micro: Microbiology 02/01/21 11:45 Blood Culture (Wb) - Left Wrist Blood Culture - Preliminary No growth in 48 hours. 02/01/21 11:25 Blood Culture (Wb) - Central Line Blood Culture - Preliminary No growth in 48 hours. 02/01/21 11:30 Sputum, Induced/Lukens Gram Stain - Final 02/01/21 11:30 Sputum, Induced/Lukens Respiratory Culture - Final Staphylococcus aureus 01/27/21 18:30 Blood Culture (Wb) - Anticubital Left Blood Culture - Final No growth in 5 days. 01/27/21 18:33 Blood Culture (Wb) - Central Line Blood Culture - Final No growth in 5 days. 01/30/21 13:20 Stool C. difficile DNA Amplification - Final 01/28/21 08:20 Sputum, Induced/Lukens Gram Stain - Final 01/28/21 08:20 Sputum, Induced/Lukens Respiratory Culture - Final Mixed normal respiratory eulalia. No Streptococcus pneumoniae, beta-hemolytic Streptococcus or Staphylococcus aureus isolated. 01/27/21 21:40 Urine Catheter - Catheter Urine Culture - Final Culture exhibits no growth. 01/27/21 19:30 Mucosa - Nose Respiratory Panel (PCR) - Final 01/27/21 19:25 Urine Catheter - Catheter Legionella Antigen - Final 01/27/21 19:25 Urine Catheter - Catheter Streptococcus pneumoniae Antigen (M - Final Physical Exam Narrative Physical exam: General: Alert, cooperative, intubated, on mechanical ventilator HEENT: Atraumatic Oral: Moist Mucosa Neck: Supple Lungs: Diminished to auscultation Cardiovascular: HS I+II, regular, no murmurs Abdomen: Bowel Sounds Present, Soft, Non Tender Extremities: No edema Assessment & Plan Assessment/Plan (1) Acute respiratory failure with hypoxia: (2) Pneumonia due to COVID-19 virus: PLAN: 1. Acute hypoxic respiratory failure secondary to acute COVID-19 pneumonia/staph aureus pneumonia Intubated from the ED(01/27/21). Symptoms started on 01/16/21 Patient received a dose of Tocilizumab on 01/27 Chest X-ray and CTA chest shows multifocal infiltrates; acute PE ruled Continue on Decadron Continue on IV Zosyn and vancomycin 2. Abdominal ileus, noted on abdominal KUB on 02/04/21 Stop tube feeds, low-intermittent suction, general surgery consult Repeat KUB in am 3. Severe sepsis secondary to acute COVID-19 pneumonia/staph aureus pneumonia, improved Sputum culture shows normal respiratory eulalia Repeat sputum culture shows staph aureus Urine cultures showed no growth Respiratory panel is unremarkable Urine Legionella and streptococcal antigen is negative Blood cultures are pending Continue IV Zosyn 4. Hyperglycemia secondary to decadron, remains elevated Continue on increased Lantus, continue on insulin sliding scale 4. Rest of his chronic medical conditions remained stable?hypertension, dyslipidemia Not on antihypertensives Will continue to monitor Charges/Coding Visit Charges Inpatient E&M: 81439 Subs Hosp L3
[2021-02-04] MEDS: Ascorbic Acid 500 MG Tablet 1000 MG GT (08:34)
[2021-02-04] MEDS: Enoxaparin 30 MG/0.3 ML Syringe SC ×2 (08:34→21:18)
[2021-02-04] MEDS: Carvedilol 25 MG Tablet GT (08:35)
[2021-02-04] MEDS: dexAMETHasone 4 MG/ML Vial 6 MG IV (08:35)
[2021-02-04] MEDS: Chlorhexidine 15 ML PO ×2 (08:38→21:24)
--- NOTE | 2021-02-04 09:16 | RAD_ITS ---
We are attempting to reach an attending provider to discuss findings. An addendum with communication details will be sent when the communication is complete. STUDY: X-RAY - ABDOMEN/PELVIS REASON FOR EXAM: Male, 55 years old. Abdomen distended TECHNIQUE: Two AP supine views of the abdomen and pelvis. COMPARISON: None. FINDINGS: Feeding tube extends to the stomach. There is gaseous distention of large and small bowel loops. There is free abdominal air. Normal soft tissue structures. Normal visualized osseous structures. RAD/Abdomen Single View (Portable) IMPRESSION: Gaseous distention of bowel loops. Free intraperitoneal air. Electronically Signed: Hernan Javier MD at 12:52 EDT , Service support ,
[2021-02-04 10:01] LABS: Bedside Glucose 234 mg/dL (70-110)
[2021-02-04 11:08] LABS: Magnesium 2.1 mg/dL (1.6-2.6)
[2021-02-04 11:14] LABS: Phosphorus 2.9 mg/dL (2.5-4.9)
[2021-02-04] MEDS: Bisacodyl 10 MG Suppository RC (11:14)
[2021-02-04 11:30] LABS: Bedside Glucose 160 mg/dL (70-110)
--- NOTE | 2021-02-04 13:11 | CT_ITS ---
ACR Level 3 findings have been noted. An addendum which confirms receipt of the report will follow. STUDY: CT ABDOMEN AND PELVIS WITH CONTRAST REASON FOR EXAM: Male, 55 years old. Abdominal distention abnormal x-ray. RADIATION DOSAGE (If Supplied By Facility): CTDIvol = ( 17.04 ) mGy, DLP = ( 1283.90 ) mGycm TECHNIQUE: Transaxial images were obtained from the dome of the diaphragm to the symphysis pubis without oral contrast. IV 100mL Isovue-370 was administered. Sagittal and coronal images were reconstructed. Individualized dose optimization techniques were used for this CT. COMPARISON: None. FINDINGS: There is bilateral lower lung airspace consolidation. There is small right pleural effusion. Feeding tube extends to the stomach. The visualized portions of the heart are within normal limits. There is large amount of pneumoperitoneum in the abdomen. Normal liver. Normal gallbladder and extrahepatic biliary system. Normal spleen. Normal pancreas. Normal bilateral adrenal glands. Normal right kidney. Normal left kidney. Normal visualized stomach. Normal small intestine. There is moderate gaseous distention of the ascending and transverse colon. There is wall thickening of the sigmoid colon. The appendix is visualized and appears normal. Normal abdominal aorta. Normal inferior vena cava. Normal retroperitoneum. There is Colon catheter in the urinary bladder. Normal abdominal wall. There is degenerative change of the spine. CT/Abdomen/Pelvis WITH Contrast IMPRESSION: Pneumoperitoneum suggesting hollow viscus perforation. Surgical consultation recommended. Gaseous distention of the colon. Lower lung consolidation. Right pleural effusion. Electronically Signed: Hernan Javier MD at 15:57 EDT , Service support ,
--- NOTE | 2021-02-04 15:54 | NURSING ---
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
--- NOTE | 2021-02-04 16:20 | CON.PCM.SX_ITS ---
Assessment & Plan Assessment/Plan (1) Perforated bowel: PLAN: Patient originally had abdominal distention and x-ray showed colon distention and free air. Patient was sent for CT scan and this showed a large amount of free abdominal air suggesting perforated viscus. I discussed surgery with the patient and his . I discussed laparotomy with possible bowel resection as well as possible need for stoma. I discussed the risks of the procedure including with allergy bleeding, infection, injury to surrounding orga ns or heart attack or stroke. Patient understands the risks and is willing to proceed. Jesús Wood MD Pager: [facility] [address] [place] [address], [address] [place] [address] Office: HPI Consult Data Date of Consult: 02/04/21 HPI Narrative HPI Narrative: KEHINDE RIOJAS, is a 55 M who is admitted to the ICU with Covid. Patient has been here for the last 8 days and intubated since admission. Patient was noted to have increased abdominal distention I was consulted for ileus originally but KUB showed free air. [facility] Medical History High cholesterol HTN (hypertension) Non-smoker Obesity Home Medications aspirin [Aspir-Low] 81 mg PO DAILY 01/27/21 [History Last Taken Unknown] atorvastatin 40 mg PO DAILY 01/27/21 [History Last Taken 01/27/21] lisinopril 10 mg PO DAILY 01/27/21 [History Last Taken 01/27/21] Allergy/AdvReac Type Severity Reaction Status Date / Time No Known Allergies Allergy Verified 01/27/21 17:40 Family History (Updated 01/27/21 @ 18:[address] Juanita Oseguera MD) Mother Diabetes Father Diabetes Surgical History (Updated 01/27/21 @ 18:[address] Juanita Oseguera MD) S/P correction of deviated nasal septum Social History (Updated 01/27/21 @ 18:[address] Juanita Oseguera MD) household members: spouse Smoking Status: Never smoker alcohol intake: never substance use type: does not use ROS Review of Systems ROS Unobtainable: due to endotracheal tube Physical Exam Const alert HEENT normocephalic Eyes PERRL Resp Resp Narrative: Patient intubated Cardio Rate: regular rate GI Inspection: abdominal distention Palpation: tender Lab / Micro Data Result Diagrams: 02/04/21 03:15 02/04/21 03:15 Labs: Laboratory Results - last 24 hr 02/03/21 17:19: POC Glucose 242 H 02/03/21 21:09: POC Glucose 221 H 02/04/21 03:15: WBC 18.8 H, RBC 4.06 L, Hgb 13.6, Hct 39.6 L, MCV 97.5 H, MCH 33.5 H, MCHC 34.3, RDW Std Deviation 43.2, RDW Coeff of Blanca 12.1, Plt Count 213, MPV 11.0, Immature Gran % (Auto) 1.000 H, Neut % (Auto) 91.8 H, Lymph % (Auto) 3.7 L, Raleigh % (Auto) 2.8, Eos % (Auto) 0.2, Baso % (Auto) 0.5, Absolute Neuts (auto) 17.2 H, Absolute Lymphs (auto) 0.69 L, Nucleated RBC % 0 02/04/21 03:15: Sodium 137, Potassium 4.1, Chloride 97 L, Carbon Dioxide 33.0 H, Anion Gap 7, BUN 30 H, Creatinine 0.66 L, Estim Creat Clear Calc 133.65, Est GFR (MDRD) Af Amer 161, Est GFR (MDRD) Non-Af 133, BUN/Creatinine Ratio 45.2 H, Glucose 262 H, Calcium 8.6, Total Bilirubin 0.50, AST 21, ALT 60, Alkaline Phosphatase 74, Total Protein 5.6 L, Albumin 2.3 L, Globulin 3.3, Albumin/Christal bulin Ratio 0.7 L 02/04/21 03:15: Magnesium 2.1 02/04/21 03:15: Phosphorus 2.9 02/04/21 06:09: POC Glucose 234 H 02/04/21 11:15: POC Glucose 160 H Micro: Microbiology 02/01/21 11:45 Blood Culture (Wb) - Left Wrist Blood Culture - Preliminary No growth in 48 hours. 02/01/21 11:25 Blood Culture (Wb) - Central Line Blood Culture - Preliminary No growth in 48 hours. Radiology Impression KUB X-Ray 02/04/21 09:16 IMPRESSION: Gaseous distention of bowel loops. Free intraperitoneal air. Electronically Signed: Hernan Javier MD at 12:52 EDT , Service support , ADDENDUM: 02/04/21 1315 IMPRESSION: Gaseous distention of bowel loops. Free intraperitoneal air. N.B. : The above Results were Read Back by Hernan Javier MD to Adalgisa Wise;[phone], and understanding confirmed on 02/04/2021 13:08:30 (ET). Electronically Signed: Hernan Javier MD at 12:52 EDT , Service support , ADDENDUM: 02/04/21 1321 IMPRESSION: Gaseous distention of bowel loops. Free intraperitoneal air. N.B. : The above Results were Read Back by Hernan Javier MD to , AA, and understanding confirmed on 02/04/2021 13:14:20 (ET). Electronically Signed: Hernan Javier MD at 12:52 EDT , Service support , Abdomen/Pelvis CT 02/04/21 13:11 IMPRESSION: Pneumoperitoneum suggesting hollow viscus perforation. Surgical consultation recommended. Gaseous distention of the colon. Lower lung consolidation. Right pleural effusion. Electronically Signed: Hernan Javier MD at 15:57 EDT , Service support , ADDENDUM: 02/04/21 1614 IMPRESSION: Pneumoperitoneum suggesting hollow viscus perforation. Surgical consultation recommended. Gaseous distention of the colon. Lower lung consolidation. Right pleural effusion. N.B. : AMIRA Grigsby, confirmed on 02/04/2021 16:07:41 (ET) that the healthcare facility has received the radiology report. Electronically Signed: Hernan Javier MD at 15:57 EDT , Service support ,
--- NOTE | 2021-02-04 16:45 | COL_PTH ---
PATIENT: KEHINDE RIOJAS LOC: [facility] U#:[id number] AGE/SX: 55/M ROOM: [facility] RE01/27/[address]: Dr. Keven Martinez MD : 1965 BED: 1 DIS: 02/22/2021 SPEC #: [id number] RECD: 02/04/21 19:20 STATUS: PJ RE #: [id number] ZAIN: 02/04/21 16:[address]: Jesús Wood DEPT: SURGICAL PATHOLOGY RECD BY: Nathaly Sam ENTERED: 02/05/21 08:05 SP TYPE: COLON OTHR DR: MD Dr. Juanita Amos MD Dr. Derek Brown, DO Dr. David Kittoe, MD Dr. Robert Leininger, MD Dr. Scott Brown, MD Tissues: Right colon Procedures: Surgery Specimen Level V Comments: @ Ordering doctor for SUV edited from to @ by REZA at 02/05/21 1018 @ Submitting doctor edited from to @ by RGOOD at 02/05/21 1018 HEADER OPERATION: Exploratory laparotomy, right hemicolectomy PRE-OP DIAGNOSIS: Pneumoperitoneum suggesting hollow viscus perforation TISSUE SUBMITTED: Right colon MICROSCOPIC DIAGNOSIS Right colon, hemicolectomy: Dilated cecum and ascending colon with focal area of defect in the cecum, clinically perforation. Focal mucosa and serosal congestion. Appendix, no pathologic diagnosis. Detached fragments of bowel tissue, no pathologic diagnosis. Four benign pericolonic lymph nodes with reactive changes. SJ:julio 02/07/2021 MICROSCOPIC DESCRIPTION Slides are reviewed. GROSS DESCRIPTION Received in fixative is one container labeled with the patient's name and designated right colon. The specimen consists of a right hemicolectomy specimen consisting of cecum with ascending colon, portion of transverse colon and attached pericolonic adipose tissue and omentum, segment of small intestine with attached mesentery and appendix. The cecum with ascending colon and transverse colon measures 38 cm in length. Segment of small intestine measures 14 cm in length and appendix measures 5 cm in length and 0.5 cm in diameter. Portion of cecum with ascending colon is dilated and it measures 6 cm in length. Focal area of defect is noted in the cecum which measures 1 cm in greatest dimension. Omentum measures 10 x 8 x 3 cm. The lumen is filled with contrast material. No obvious mucosal lesion is identified. Sections will be submitted after fixation. Two pieces of bowel tissue are noted measuring 4 x 1 x 1 cm and 3 x 1 x 0.5 cm. / SAKSHI:julio 02/05/21 Sections of the appendix reveal unremarkable cut surfaces. Sections of omentum do not reveal any mass lesion. Sections of pericolonic adipose tissue reveal one lymph node measuring 1.5 cm in greatest dimension. Receiving Specialist sections are submitted in ten cassettes as follows: 1 - detached pieces of bowel tissue, 2 - proximal and distal resection margins, 3 - appendix, 4 - area adjacent to the defect, 5 - ileocecal valve, 6 - cecum, 7??ascending colon and transverse colon, 8 - small bowel and omentum, 9??one bisected lymph node, 10 - pericolonic adipose tissue with possible lymph nodes. / SAKSHI:julio 02/06/21 TC:5 CPT: 75417
--- NOTE | 2021-02-04 17:00 | NURSING ---
freddy informed of surgery gave verbal consent verified with Alvina Valles rn to or
--- NOTE | 2021-02-04 19:21 | PCM.OPRPT ---
Problems Associated Problem List Diagnoses (1) Perforated bowel: Report of Operation Date of Procedure: 02/04/21 Pre-Operative Diagnosis: Perforated bowel with free air Post-Operative Diagnosis: Perforated cecum with a very dilated ascending and transverse colon Surgery/Procedure Performed:: Exploratory laparotomy with extended right hemicolectomy Specimen's removed: Right colon Description of Procedure: Patient was brought back to the operating room. He was transferred over to the operating table already intubated from upstairs. Patient's abdomen was prepped and draped in usual sterile fashion and a midline incision was made with a scalpel and deepened to the fascia which was elevated and incised. There was a copious amount of air in the abdomen. The incision was extended superiorly inferiorly and wound protector was placed. The abdomen was inspected and the cecum was incredibly dilated with serosal tears as well as the proximal transverse colon. There was a small hole leaking air and stool in the cecum. The hole was elongated and the contents of the cecum and transverse colon were suction to allow for dissection. Next the right colon was dissected medially from its lateral attachments using sharp and electrocautery dissection. The distal ligament was mobilized in the same fashion. The hepatic flexure was taken down using electrocautery. The lesser sac was entered and extended medially until the distal transverse colon was encountered. The colon was surrounded and divided using 75 SENTHIL stapler. Using the impact LigaSure the mesentery was taken down just at the colon until the right pedicle was reached. The right pedicle was suture-ligated using 0 silk suture. Terminal ileum was divided in the same fashion using a 75 SENTHIL stapler in its mesentery was taken down using impact device. The specimen was then removed. The abdomen was irrigated and suctioned dry and inspected. The sigmoid colon was inspected and there did not appear to be any inflammation or perforation in this area. It was very soft with no signs of infection or inflammation. Next the distal transverse colon staple line was opened at the corner as was the small bowel and a [id number] functional end-to-end anastomosis was performed using a 75 SENTHIL stapler. A TX 60 was used to close the enterostomy. A 3-0 silk suture was used to create a crotch suture. The staple line was imbricated using 3-0 silk sutures. The mesenteric defect was too large to close so the bowel was replaced into the abdomen. The abdomen was copiously irrigated with over 3 L of fluid and suctioned dry. The omentum was draped over the bowel contents. The fascia was closed starting at the top and bottom using a #1 PDS suture meeting in the middle. Subcutaneous tissue was irrigated and suctioned dry and the skin was stapled. Bandages were applied the patient was taken back to the ICU in stable condition on the ventilator. Admit VTE Documentation VTE Mechan Device Prophylaxis: SCD's
[2021-02-04 23:41] LABS: Bedside Glucose 71 mg/dL (70-110)
[2021-02-05] VITALS (34 sets, daily range): BP systolic 83–134; BP diastolic 59–108; PULSE 60–89; RESP 12–25; TEMP 36.9–37.7; O2SAT 88–95
[2021-02-05] MEDS: Dext 5%-0.45% NS 1,000 ML 75 ML IV ×2 (00:01→14:54)
[2021-02-05 04:30] LABS: Absolute Lymphocyte Count 1.29 X10^3/uL (0.83-4.51); Absolute Neutrophil Count 13.3 X10^3/uL (2.0-7.7); Basophil# 0.14 X10^3/uL; Basophil% 0.9 % (0-1); Eosinophil# 0.05 X10^3/uL; Eosinophils% 0.3 % (0-5); Hematocrit 42.3 % (40-54); Hemoglobin 14.5 g/dL (13.0-16.5); Lymphocyte # 1.29 X10^3/ul (0.83-4.51); Lymphocyte % 8.3 % (19-41); Mean Corp Hgb Conc 34.3 g/dL (32-36); Mean Corpuscular Hgb 33.3 pg (27.0-32.0); Mean Platelet Vol. 10.4 fl (6.2-12.0); Monocyte# 0.56 X10^3/uL; Monocyte% 3.6 % (0-10); NRBC Flagged by Analyzer 0 % (0-5); Neutrophil # 13.25 X10^3/uL (2.7-7.7); Neutrophil % 85.9 % (47-70); POSITIVE MORPHOLOGY YES; Platelet Count 325 K/mm3 (150-450); RBC Distribution Width CV 12.5 % (11.6-14.6); RBC Distribution Width SD 44.1 fl (35.1-43.9); Red Blood Count 4.36 M/mm3 (4.6-6.2); White Blood Count 15.5 K/mm3 (4.4-11.0)
[2021-02-05 04:32] LABS: Differential Indicated SCAN CRITERIA MET
[2021-02-05 04:49] LABS: ALB/GLOB Ratio 0.6 RATIO (0.9-2.4); AST(SGOT) 18 U/L (15-37); Alanine Aminotransfer ALT/SGPT 44 U/L (16-61); Alkaline Phosphatase 56 U/L (45-117); Anion Gap 4 (5-15); BUN 25 mg/dL (7-18); BUN/Creat Ratio 46.1 RATIO (10-20); Chloride 106 mmol/L (98-107); Creatinine, Serum 0.54 mg/dL (0.70-1.30); EST Glomerular Filtration Rate 168 mL/min (>60); Est Glom Filt Rate - Afr Amer 203 mL/min (>60); Estimated Creatinine Clearance 163.35 ml/min; Globulin 3.1 g/dL (2.2-4.2); Glucose 59 mg/dL (74-106); Potassium 4.3 mmol/L (3.5-5.1); Protein, Total 5.1 g/dL (6.4-8.2); Sodium Level 142 mmol/L (136-145)
--- NOTE | 2021-02-05 06:53 | PN.CC_ITS ---
Assessment & Plan Assessment/Plan (1) Acute respiratory failure with hypoxia: (2) Pneumonia due to COVID-19 virus: PLAN: RECOMMENDATIONS: 1. Continue patient on assist control mode mechanical ventilation. Wean FiO2/PEEP for saturations greater than 90%. 2. Spontaneous breathing and awakening trials per protocol. 3. Continue mucolytic and antibiotics. 4. Continue Decadron to complete 10-day treatment course (02/06/2021). 5. Continue twice daily Lovenox as ordered. 6. Continue appropriate GI prophylaxis. 7. Continue dextrose containing fluids for now. IMPRESSIONS: 1. Acute hypoxemic respiratory failure secondary to COVID-19 pneumonia The patient presented to the hospital with progressive Covid symptoms after having been initially diagnosed at the end of December. He was therefore outside of the window for remdesivir. CTA chest showed no evidence for pulmonary embolism. The patient was emergently intubated in the emergency department. He will be continued on assist control mode mechanical ventilation. FiO2 and PEEP will be weaned to maintain saturations at or above 90%. Sputum culture is showing MSSA. Continue antimicrobials accordingly. Continue Decadron to complete 10 days of therapy. 2. Bowel perforation, now POD #1 s/p exploratory laparotomy with right hemicolectomy Continue n.p.o. status for now per general surgery recommendations. 3. Acute kidney injury Resolved. Likely prerenal in etiology. The patient did initially respond to fluid resuscitation. However, supplemental IV fluids have been discontinued at this time. Creatinine has subsequently normalized. We will continue to monitor urine output. Continue to diurese intermittently to attempt to euvolemia. 4. Obesity/hypertension/hyperlipidemia Complicates care, management, recovery and prognosis. Continue home medications as indicated. Continue to hold Lantus for now. TIME: 33 minutes of critical care time, independent of procedures, was spent addressing the patient's acute hypoxemic respiratory failure secondary to COVID- 19 pneumonia, bowel perforation status post right hemicolectomy, acute kidney injury, review of all data and collaboration with the care team. ([id number]) Subjective Subjective The patient was seen and examined at the bedside this morning. Events from the last 24 hours have been reviewed. The patient is currently afebrile, hemodynamically stable and maintaining appropriate oxygen saturations on assist control mode of mechanical ventilation with an FiO2 requirement of 45% and PEEP of 12. The patient is alert and oriented. He is currently sedated on fentanyl only. The patient is documented to be overall net +7.3 L for the hospitalization. The patient did undergo successful exploratory laparotomy with right hemicolectomy last evening. The patient remains on dextrose containing supplemental IV fluids due to hypoglycemia. Objective Data Objective Data The patient's most recent lab work, culture data and imaging studies have all been personally reviewed. Sputum culture dated February 01 was positive for MSSA. Vital Signs: Vital Signs Temp Pulse Resp BP Pulse Ox 98.8 F 63 16 114/80 91 02/05/21 04:00 02/05/21 06:50 02/05/21 06:50 02/05/21 04:00 02/05/21 06:50 Oxygen Flow Rate (L/min) 15 Oxygen Delivery Method Mechanical Ventilator Weight: 93.894 kg Body Mass Index (BMI) 28.3 Intake & Output: Intake and Output for Last 24 Hours 02/03/21 02/04/21 02/05/21 23:59 23:59 23:59 Intake Total 4442.46 / 4454.96 1751.12 / 1751.12 83.33 / 83.33 Output Total 3000 / 3000 1375 / 1375 500 / 500 Balance 1442.46 / 1454.96 376.12 / 376.12 -416.67 / -416.67 Lab / Micro Data Attestation: I reviewed the patient's lab results. Result Diagrams: 02/06/21 04:40 02/06/21 04:40 Labs: Laboratory Results - last 24 hr 02/04/21 03:15: Magnesium 2.1 02/04/21 03:15: Phosphorus 2.9 02/04/21 06:09: POC Glucose 234 H 02/04/21 11:15: POC Glucose 160 H 02/04/21 23:26: POC Glucose 71 02/05/21 04:15: WBC 15.5 H, RBC 4.36 L, Hgb 14.5, Hct 42.3, MCV 97.0 H, MCH 33.3 H, MCHC 34.3, RDW Std Deviation 44.1 H, RDW Coeff of Blanca 12.5, Plt Count 325, MPV 10.4, Immature Gran % (Auto) 1.000 H, Neut % (Auto) 85.9 H, Lymph % (Auto) 8.3 L, [place] % (Auto) 3.6, Eos % (Auto) 0.3, Baso % (Auto) 0.9, Absolute Neuts (auto) 13.3 H, Absolute Lymphs (auto) 1.29, Nucleated RBC % 0 02/05/21 04:15: Sodium 142, Potassium 4.3, Chloride 106, Carbon Dioxide 32.0, Anion Gap 4 L, BUN 25 H, Creatinine 0.54 L, Estim Creat Clear Calc 163.35, Est GFR (MDRD) Af Amer 203, Est GFR (MDRD) Non-Af 168, BUN/Creatinine Ratio 46.1 H, Glucose 59 L, Calcium 8.0 L, Total Bilirubin 0.50, AST 18, ALT 44, Alkaline Phosphatase 56, Total Protein 5.1 L, Albumin 2.0 L, Globulin 3.1, Albumin/Globulin Ratio 0.6 L Micro: Microbiology 02/01/21 11:45 Blood Culture (Wb) - Left Wrist Blood Culture - Preliminary No growth in 48 hours. 02/01/21 11:25 Blood Culture (Wb) - Central Line Blood Culture - Preliminary No growth in 48 hours. 02/01/21 11:30 Sputum, Induced/Lukens Gram Stain - Final 02/01/21 11:30 Sputum, Induced/Lukens Respiratory Culture - Final Staphylococcus aureus 01/27/21 18:30 Blood Culture (Wb) - Anticubital Left Blood Culture - Final No growth in 5 days. 01/27/21 18:33 Blood Culture (Wb) - Central Line Blood Culture - Final No growth in 5 days. 01/30/21 13:20 Stool C. difficile DNA Amplification - Final 01/28/21 08:20 Sputum, Induced/Lukens Gram Stain - Final 01/28/21 08:20 Sputum, Induced/Lukens Respiratory Culture - Final Mixed normal respiratory eulalia. No Streptococcus pneumoniae, beta-hemolytic Streptococcus or Staphylococcus aureus isolated. 01/27/21 21:40 Urine Catheter - Catheter Urine Culture - Final Culture exhibits no growth. 01/27/21 19:30 Mucosa - Nose Respiratory Panel (PCR) - Final 01/27/21 19:25 Urine Catheter - Catheter Legionella Antigen - Final 01/27/21 19:25 Urine Catheter - Catheter Streptococcus pneumoniae Antigen (M - Final Radiography Diagnostic Testing: Radiology Impression KUB X-Ray 02/04/21 09:16 IMPRESSION: Gaseous distention of bowel loops. Free intraperitoneal air. Electronically Signed: Hernan Javier MD at 12:52 EDT , Service support , ADDENDUM: 02/04/21 1315 IMPRESSION: Gaseous distention of bowel loops. Free intraperitoneal air. N.B. : The above Results were Read Back by Hernan Javier MD to Adalgisa Wise;[phone], and understanding confirmed on 02/04/2021 13:08:30 (ET). Electronically Signed: Hernan Javier MD at 12:52 EDT , Service support , ADDENDUM: 02/04/21 1321 IMPRESSION: Gaseous distention of bowel loops. Free intraperitoneal air. N.B. : The above Results were Read Back by Hernan Javier MD to , AA, and understanding confirmed on 02/04/2021 13:14:20 (ET). Electronically Signed: Hernan Javier MD at 12:52 EDT , Service support , Abdomen/Pelvis CT 02/04/21 13:11 IMPRESSION: Pneumoperitoneum suggesting hollow viscus perforation. Surgical consultation recommended. Gaseous distention of the colon. Lower lung consolidation. Right pleural effusion. Electronically Signed: Hernan Javier MD at 15:57 EDT , Service support , ADDENDUM: 02/04/21 1614 IMPRESSION: Pneumoperitoneum suggesting hollow viscus perforation. Surgical consultation recommended. Gaseous distention of the colon. Lower lung consolidation. Right pleural effusion. N.B. : AMIRA Grigsby, confirmed on 02/04/2021 16:07:41 (ET) that the healthcare facility has received the radiology report. Electronically Signed: Hernan Javier MD at 15:57 EDT , Service support , Physical Exam Const General Appearance: intubated and patient mechanically ventilated Nutritional Appearance: obese HEENT normocephalic and head/scalp atraumatic Mouth: endotracheal tube in place and OG tube in place Eyes PERRL and conjunctivae normal Neck supple General: trachea midline Chest inspection of chest normal Resp Auscultation: rhonchi and diminished lung sounds; Negative for rales or wheezes Cardio regular rate and regular rhythm GI soft to palpation and non-tender Auscultation: hypoactive bowel sounds Extremity no clubbing, cyanosis or edema Skin no rashes or lesions noted Neuro Sensorium / Orientation: sedated on vent Charges/Coding Procedures Hospitalists Procedures: 88108 Critial Care 1st Hr
[2021-02-05] MEDS: Dextrose 50%-Water 25 GM/50 ML DISP.SYRIN IV ×2 (07:00→11:22)
[2021-02-05] MEDS: Menthol/Lanolin/Calamine/Znox 113 GM Tube 1 APPLIC TOPICAL ×3 (07:00→23:07)
[2021-02-05] MEDS: CHLORHEXIDINE GLUC 2% CLOTH 1 EACH TOWELETTE TOPICAL (07:00)
--- NOTE | 2021-02-05 07:18 | PN.HOSP_ITS ---
Subjective Subjective Patient was noted to have a perforated bowel with free air. General surgery consulted. Patient underwent exploratory laparotomy with extended right hemicolectomy as a result of perforated cecum with very dilated ascending and transverse colon on 05/07/2020 Objective Data Objective Data Vital Signs: Vital Signs Temp Pulse Resp BP Pulse Ox 98.8 F 63 16 114/80 91 02/05/21 04:00 02/05/21 06:50 02/05/21 06:50 02/05/21 04:00 02/05/21 06:50 Oxygen Flow Rate (L/min) 15 Oxygen Delivery Method Mechanical Ventilator Weight: 93.894 kg Body Mass Index (BMI) 28.3 Intake & Output: Intake and Output for Last 24 Hours 02/03/21 02/04/21 02/05/21 23:59 23:59 23:59 Intake Total 4442.46 / 4454.96 1751.12 / 1751.12 120.83 / 120.83 Output Total 3000 / 3000 1375 / 1375 500 / 500 Balance 1442.46 / 1454.96 376.12 / 376.12 -379.17 / -379.17 Lab / Micro Data Result Diagrams: 02/05/21 04:15 02/05/21 04:15 Labs: Laboratory Results - last 24 hr 02/04/21 03:15: Magnesium 2.1 02/04/21 03:15: Phosphorus 2.9 02/04/21 06:09: POC Glucose 234 H 02/04/21 11:15: POC Glucose 160 H 02/04/21 23:26: POC Glucose 71 02/05/21 04:15: WBC 15.5 H, RBC 4.36 L, Hgb 14.5, Hct 42.3, MCV 97.0 H, MCH 33.3 H, MCHC 34.3, RDW Std Deviation 44.1 H, RDW Coeff of Blanca 12.5, Plt Count 325, MPV 10.4, Immature Gran % (Auto) 1.000 H, Neut % (Auto) 85.9 H, Lymph % (Auto) 8.3 L, [place] % (Auto) 3.6, Eos % (Auto) 0.3, Baso % (Auto) 0.9, Absolute Neuts (auto) 13.3 H, Absolute Lymphs (auto) 1.29, Nucleated RBC % 0 02/05/21 04:15: Sodium 142, Potassium 4.3, Chloride 106, Carbon Dioxide 32.0, Anion Gap 4 L, BUN 25 H, Creatinine 0.54 L, Estim Creat Clear Calc 163.35, Est GFR (MDRD) Af Amer 203, Est GFR (MDRD) Non-Af 168, BUN/Creatinine Ratio 46.1 H, Glucose 59 L, Calcium 8.0 L, Total Bilirubin 0.50, AST 18, ALT 44, Alkaline Phosphatase 56, Total Protein 5.1 L, Albumin 2.0 L, Globulin 3.1, Albumin/Globulin Ratio 0.6 L Micro: Microbiology 02/01/21 11:45 Blood Culture (Wb) - Left Wrist Blood Culture - Preliminary No growth in 48 hours. 02/01/21 11:25 Blood Culture (Wb) - Central Line Blood Culture - Preliminary No growth in 48 hours. 02/01/21 11:30 Sputum, Induced/Lukens Gram Stain - Final 02/01/21 11:30 Sputum, Induced/Lukens Respiratory Culture - Final Staphylococcus aureus 01/27/21 18:30 Blood Culture (Wb) - Anticubital Left Blood Culture - Final No growth in 5 days. 01/27/21 18:33 Blood Culture (Wb) - Central Line Blood Culture - Final No growth in 5 days. 01/30/21 13:20 Stool C. difficile DNA Amplification - Final 01/28/21 08:20 Sputum, Induced/Lukens Gram Stain - Final 01/28/21 08:20 Sputum, Induced/Lukens Respiratory Culture - Final Mixed normal respiratory eulalia. No Streptococcus pneumoniae, beta-hemolytic Streptococcus or Staphylococcus aureus isolated. 01/27/21 21:40 Urine Catheter - Catheter Urine Culture - Final Culture exhibits no growth. 01/27/21 19:30 Mucosa - Nose Respiratory Panel (PCR) - Final 01/27/21 19:25 Urine Catheter - Catheter Legionella Antigen - Final 01/27/21 19:25 Urine Catheter - Catheter Streptococcus pneumoniae Antigen (M - Final Radiography Diagnostic Testing: Radiology Impression KUB X-Ray 02/04/21 09:16 IMPRESSION: Gaseous distention of bowel loops. Free intraperitoneal air. Electronically Signed: Hernan Javier MD at 12:52 EDT , Service support , ADDENDUM: 02/04/21 1315 IMPRESSION: Gaseous distention of bowel loops. Free intraperitoneal air. N.B. : The above Results were Read Back by Hernan Javier MD to Adalgisa Wise;[phone], and understanding confirmed on 02/04/2021 13:08:30 (ET). Electronically Signed: Hernan Javier MD at 12:52 EDT , Service support , ADDENDUM: 02/04/21 1321 IMPRESSION: Gaseous distention of bowel loops. Free intraperitoneal air. N.B. : The above Results were Read Back by Hernan Javier MD to , AA, and understanding confirmed on 02/04/2021 13:14:20 (ET). Electronically Signed: Hernan Javier MD at 12:52 EDT , Service support , Abdomen/Pelvis CT 02/04/21 13:11 IMPRESSION: Pneumoperitoneum suggesting hollow viscus perforation. Surgical consultation recommended. Gaseous distention of the colon. Lower lung consolidation. Right pleural effusion. Electronically Signed: Hernan Javier MD at 15:57 EDT , Service support , ADDENDUM: 02/04/21 1614 IMPRESSION: Pneumoperitoneum suggesting hollow viscus perforation. Surgical consultation recommended. Gaseous distention of the colon. Lower lung consolidation. Right pleural effusion. N.B. : AMIRA Grigsby, confirmed on 02/04/2021 16:07:41 (ET) that the healthcare facility has received the radiology report. Electronically Signed: Hernan Javier MD at 15:57 EDT , Service support , Physical Exam Narrative GENERAL: Awake on the vent HEENT: Atraumatic; EYES; Anicteric, Normal Conjunctiva NECK; supple, normal thyroid, RESPIRATORY: Diminished to auscultation CARDIOVASCULAR: Regular S1 S2, GI: Nondistended : No Renal angle tenderness; EXTREMITIES: No edema, no clubbing, MUSCULOSKELETAL: no muscle waisting NEURO: Awake; no lateralizing signs. SKIN: No Rash PSYCH; Flat affect Assessment & Plan Assessment/Plan (1) Acute respiratory failure with hypoxia: PLAN: Patient is a 55-year-old gentleman unvaccinated against COVID-19 who presented with progressive shortness of breath. Patient has been diagnosed with COVID-19 pneumonia on 01/17/2021 symptoms started on 01/16/2021. An assessment of acute hypoxic respiratory failure made admitted to intensive care unit for subsequent management 1. Acute hypoxic respiratory failure ?Secondary to SARS-CoV-2 pneumonia. Patient admitted to the intensive care unit placed on ventilator. Patient was outside the window for remdesivir. Was started on Decadron. Did receive a dose of Tocilizumab 2. Severe sepsis ?Secondary to SARS-CoV-2 pneumonia with superimposed bacterial pneumonia (staph pneumonia). Patient did receive IV fluid resuscitation and subsequently started on broad-spectrum antibiotic therapy with Zosyn and vancomycin with consultation placed to ID 3. Perforated cecum with very dilated ascending and transverse colon ?Patient underwent exploratory laparotomy with extended right hemicolectomy on 02/04/[address] Wood 4. Hyperglycemia ?Secondary to chronic steroid use Patient is currently on long-acting insulin in addition to sliding scale coverage 5. Essential hypertension ?Blood pressure on the low side patient antihypertensives never restarted 6. Dyslipidemia ?On statin therapy prior to admission 7. DVT prophylaxis ?AR Lovenox Charges/Coding Visit Charges Inpatient E&M: 68462 Subs Hosp L3
--- NOTE | 2021-02-05 08:44 | PCM.PN.SRG ---
Subjective Subjective No changes overnight Objective Data Objective Data Vital Signs: Vital Signs Temp Pulse Resp BP Pulse Ox 98.8 F 63 16 116/67 90 02/05/21 04:00 02/05/21 07:00 02/05/21 07:00 02/05/21 07:00 02/05/21 07:00 Oxygen Flow Rate (L/min) 15 Oxygen Delivery Method Mechanical Ventilator Weight: 207 lb Body Mass Index (BMI) 28.3 Intake & Output: Intake and Output for Last 24 Hours 02/03/21 02/04/21 02/05/21 23:59 23:59 23:59 Intake Total 4442.46 / 4454.96 1751.12 / 1751.12 120.83 / 120.83 Output Total 3000 / 3000 1375 / 1375 500 / 500 Balance 1442.46 / 1454.96 376.12 / 376.12 -379.17 / -379.17 Lab / Micro Data Result Diagrams: 02/05/21 04:15 02/05/21 04:15 Labs: Laboratory Results - last 24 hr 02/04/21 03:15: Magnesium 2.1 02/04/21 03:15: Phosphorus 2.9 02/04/21 06:09: POC Glucose 234 H 02/04/21 11:15: POC Glucose 160 H 02/04/21 23:26: POC Glucose 71 02/05/21 04:15: WBC 15.5 H, RBC 4.36 L, Hgb 14.5, Hct 42.3, MCV 97.0 H, MCH 33.3 H, MCHC 34.3, RDW Std Deviation 44.1 H, RDW Coeff of Blanca 12.5, Plt Count 325, MPV 10.4, Immature Gran % (Auto) 1.000 H, Neut % (Auto) 85.9 H, Lymph % (Auto) 8.3 L, Carbon % (Auto) 3.6, Eos % (Auto) 0.3, Baso % (Auto) 0.9, Absolute Neuts (auto) 13.3 H, Absolute Lymphs (auto) 1.29, Nucleated RBC % 0 02/05/21 04:15: Sodium 142, Potassium 4.3, Chloride 106, Carbon Dioxide 32.0, Anion Gap 4 L, BUN 25 H, Creatinine 0.54 L, Estim Creat Clear Calc 163.35, Est GFR (MDRD) Af Amer 203, Est GFR (MDRD) Non-Af 168, BUN/Creatinine Ratio 46.1 H, Glucose 59 L, Calcium 8.0 L, Total Bilirubin 0.50, AST 18, ALT 44, Alkaline Phosphatase 56, Total Protein 5.1 L, Albumin 2.0 L, Globulin 3.1, Albumin/Globulin Ratio 0.6 L Micro: Microbiology 02/01/21 11:45 Blood Culture (Wb) - Left Wrist Blood Culture - Preliminary No growth in 48 hours. 02/01/21 11:25 Blood Culture (Wb) - Central Line Blood Culture - Preliminary No growth in 48 hours. 02/01/21 11:30 Sputum, Induced/Lukens Gram Stain - Final 02/01/21 11:30 Sputum, Induced/Lukens Respiratory Culture - Final Staphylococcus aureus 01/27/21 18:30 Blood Culture (Wb) - Anticubital Left Blood Culture - Final No growth in 5 days. 01/27/21 18:33 Blood Culture (Wb) - Central Line Blood Culture - Final No growth in 5 days. 01/30/21 13:20 Stool C. difficile DNA Amplification - Final 01/28/21 08:20 Sputum, Induced/Lukens Gram Stain - Final 01/28/21 08:20 Sputum, Induced/Lukens Respiratory Culture - Final Mixed normal respiratory eulalia. No Streptococcus pneumoniae, beta-hemolytic Streptococcus or Staphylococcus aureus isolated. 01/27/21 21:40 Urine Catheter - Catheter Urine Culture - Final Culture exhibits no growth. 01/27/21 19:30 Mucosa - Nose Respiratory Panel (PCR) - Final 01/27/21 19:25 Urine Catheter - Catheter Legionella Antigen - Final 01/27/21 19:25 Urine Catheter - Catheter Streptococcus pneumoniae Antigen (M - Final Radiography Diagnostic Testing: Radiology Impression KUB X-Ray 02/04/21 09:16 IMPRESSION: Gaseous distention of bowel loops. Free intraperitoneal air. Electronically Signed: Hernan Javier MD at 12:52 EDT , Service support , ADDENDUM: 02/04/21 1315 IMPRESSION: Gaseous distention of bowel loops. Free intraperitoneal air. N.B. : The above Results were Read Back by Hernan Javier MD to Adalgisa Wise;[phone], and understanding confirmed on 02/04/2021 13:08:30 (ET). Electronically Signed: Hernan Javier MD at 12:52 EDT , Service support , ADDENDUM: 02/04/21 1321 IMPRESSION: Gaseous distention of bowel loops. Free intraperitoneal air. N.B. : The above Results were Read Back by Hernan Javier MD to , AA, and understanding confirmed on 02/04/2021 13:14:20 (ET). Electronically Signed: Hernan Javier MD at 12:52 EDT , Service support , Abdomen/Pelvis CT 02/04/21 13:11 IMPRESSION: Pneumoperitoneum suggesting hollow viscus perforation. Surgical consultation recommended. Gaseous distention of the colon. Lower lung consolidation. Right pleural effusion. Electronically Signed: Hernan Javier MD at 15:57 EDT , Service support , ADDENDUM: 02/04/21 1614 IMPRESSION: Pneumoperitoneum suggesting hollow viscus perforation. Surgical consultation recommended. Gaseous distention of the colon. Lower lung consolidation. Right pleural effusion. N.B. : AMIRA Grigsby, confirmed on 02/04/2021 16:07:41 (ET) that the healthcare facility has received the radiology report. Electronically Signed: Hernan Javier MD at 15:57 EDT , Service support , Physical Exam Const no apparent distress Resp Resp Narrative: Intubated Cardio regular rate GI soft to palpation and non-tender Assessment & Plan Assessment/Plan (1) Perforated bowel: PLAN: Patient underwent extended right hemicolectomy yesterday for perforated cecum. Continue n.p.o. and NG suctioning. Await bowel function. Continue antibiotics. Jesús Wood MD Pager: [facility] [address] [place] [address], [address] [place] [address] Office:
[2021-02-05] MEDS: Chlorhexidine 15 ML PO ×2 (11:03→23:07)
[2021-02-05] MEDS: dexAMETHasone 4 MG/ML Vial 6 MG IV (11:04)
[2021-02-05] MEDS: Carvedilol 25 MG Tablet GT ×2 (11:04→21:18)
[2021-02-05] MEDS: Enoxaparin 30 MG/0.3 ML Syringe SC ×2 (11:04→21:23)
[2021-02-05] MEDS: Ascorbic Acid 500 MG Tablet 1000 MG GT (11:05)
[2021-02-05] MEDS: Acetaminophen 650 MG/20 ML UDC GT (11:35)
[2021-02-05 11:36] LABS: Bedside Glucose 63 mg/dL (70-110)
[2021-02-05 11:41] LABS: Bedside Glucose 47 mg/dL (70-110)
[2021-02-05 11:41] LABS: Bedside Glucose 43 mg/dL (70-110)
--- NOTE | 2021-02-05 14:19 | PCM.PN.ID ---
Physical Exam Narrative Abd sore, breathing ok, awake on vent. No fever. Const alert General Appearance: cooperative Resp Auscultation: diminished lung sounds Cardio Rate: tachycardic GI GI Narrative: sore, mildly distended. Skin no rashes or lesions noted ID ID: Route of nutrition/ use of supplements: [] Nutritional Intake: [] IV Site: [] Colon Catheter: [] Assessment & Plan Assessment/Plan (1) Pneumonia due to COVID-19 virus: PLAN: Sx started around 01/15. Isolate for 20 days from that point. Unvaccinated. Encouraged vaccine once recovered. Cxs neg. Wbc remains elevated. UAg neg. CT neg for PE. Given toci x1 on 01/27. On dex. Sputum with mssa. Now with bowel perf, taken to OR 02/[address] Wood for extended R hemicolectomy. Possible side effect of tocilizumab, has been reported post marketing; d/w pharmacy, will report. On zosyn. Will follow, d/w Dr. Camacho (2) Acute respiratory failure with hypoxia: (3) Perforated bowel:
[2021-02-05 17:41] LABS: Bedside Glucose 85 mg/dL (70-110)
--- NOTE | 2021-02-05 19:20 | NURSING ---
when bedside report was given pt was on 200 of fentanyl but the mar reflected that he was only on 150 of fentanyl
[2021-02-05] MEDS: 0.9% Saline Lock 10 ML Syringe IV (21:24)
[2021-02-06] VITALS (35 sets, daily range): BP systolic 96–146; BP diastolic 57–96; PULSE 55–80; RESP 16–38; TEMP 36.4–37.2; O2SAT 87–98
[2021-02-06 00:41] LABS: Bedside Glucose 77 mg/dL (70-110)
[2021-02-06] MEDS: Dext 5%-0.45% NS 1,000 ML 75 ML IV ×2 (04:15→18:57)
[2021-02-06 04:51] LABS: Absolute Neutrophil Count 12.5 X10^3/uL (2.0-7.7); Basophil# 0.06 X10^3/uL; Basophil% 0.4 % (0-1); Eosinophil# 0.08 X10^3/uL; Eosinophils% 0.5 % (0-5); Hematocrit 35.5 % (40-54); Lymphocyte % 11.5 % (19-41); Mean Corp Hgb Conc 33.8 g/dL (32-36); Mean Corpuscular Hgb 33.2 pg (27.0-32.0); Mean Corpuscular Volume 98.3 fL (80-94); Mean Platelet Vol. 10.2 fl (6.2-12.0); Monocyte# 0.86 X10^3/uL; Monocyte% 5.5 % (0-10); NRBC Flagged by Analyzer 0 % (0-5); Neutrophil # 12.54 X10^3/uL (2.7-7.7); Neutrophil % 80.3 % (47-70); POSITIVE MORPHOLOGY YES; Platelet Count 278 K/mm3 (150-450); RBC Distribution Width CV 12.3 % (11.6-14.6); RBC Distribution Width SD 44.8 fl (35.1-43.9); Red Blood Count 3.61 M/mm3 (4.6-6.2); White Blood Count 15.6 K/mm3 (4.4-11.0)
[2021-02-06 05:12] LABS: ALB/GLOB Ratio 0.6 RATIO (0.9-2.4); AST(SGOT) 22 U/L (15-37); Alanine Aminotransfer ALT/SGPT 36 U/L (16-61); Albumin, Serum 1.8 g/dL (3.2-5.0); Alkaline Phosphatase 54 U/L (45-117); Anion Gap 6 (5-15); BUN 22 mg/dL (7-18); Calcium,Total 7.9 mg/dL (8.5-10.1); Chloride 105 mmol/L (98-107); Creatinine, Serum 0.54 mg/dL (0.70-1.30); EST Glomerular Filtration Rate 170 mL/min (>60); Est Glom Filt Rate - Afr Amer 205 mL/min (>60); Estimated Creatinine Clearance 163.35 ml/min; Globulin 3.1 g/dL (2.2-4.2); Glucose 45 mg/dL (74-106); Magnesium 2.3 mg/dL (1.6-2.6); Potassium 3.9 mmol/L (3.5-5.1); Protein, Total 4.9 g/dL (6.4-8.2); Sodium Level 140 mmol/L (136-145)
[2021-02-06 05:24] LABS: Differential Indicated SCAN CRITERIA MET
[2021-02-06] MEDS: Menthol/Lanolin/Calamine/Znox 113 GM Tube 1 APPLIC TOPICAL (06:07)
[2021-02-06] MEDS: Dextrose 50%-Water 25 GM/50 ML DISP.SYRIN IV (06:09)
[2021-02-06] MEDS: CHLORHEXIDINE GLUC 2% CLOTH 1 EACH TOWELETTE TOPICAL (06:12)
--- NOTE | 2021-02-06 06:56 | NURSING ---
pt extubated to 15l NC
--- NOTE | 2021-02-06 07:11 | PN.CC_ITS ---
Assessment & Plan Assessment/Plan (1) Acute respiratory failure with hypoxia: (2) Pneumonia due to COVID-19 virus: PLAN: RECOMMENDATIONS: 1. Proceed with a trial of extubation this morning. 2. Once extubated, wean supplemental oxygen to maintain saturations at or above 90%. 3. Obtain speech therapy evaluation prior to advancing diet. 4. Dietary advancement per general surgery recommendations. 5. Continue dextrose containing fluids until issues with hypoglycemia resolved. 6. Administer IV Lasix today. 7. Encourage incentive spirometer use and mobilize patient as tolerated. IMPRESSIONS: 1. Acute hypoxemic respiratory failure secondary to COVID-19 pneumonia The patient presented to the hospital with progressive Covid symptoms after having been initially diagnosed at the end of December. He was therefore outside of the window for remdesivir. CTA chest showed no evidence for pulmonary embolism. The patient was emergently intubated in the emergency department. The patient has completed his treatment courses for his Covid. He remains on antimicrobials for the MSSA isolated from his sputum. His oxygenation status has improved. Therefore, we will proceed with extubation this morning. 2. Bowel perforation, now POD #2 s/p exploratory laparotomy with right hemicolectomy Continue local wound care and dietary advancement per general surgery recommendations. 3. Acute kidney injury Resolved. Likely prerenal in etiology. The patient did initially respond to fluid resuscitation. However, supplemental IV fluids have been discontinued at this time. Creatinine has subsequently normalized. We will continue to monitor urine output. Continue to diurese intermittently to attempt to euvolemia. 4. Obesity/hypertension/hyperlipidemia Complicates care, management, recovery and prognosis. Continue home medications as indicated. Continue to hold Lantus for now. TIME: 34 minutes of critical care time, independent of procedures, was spent addressing the patient's acute hypoxemic respiratory failure secondary to COVID- 19 pneumonia, bowel perforation status post right hemicolectomy, acute kidney injury, review of all data and collaboration with the care team. ([id number]) Subjective Subjective The patient was seen and examined at the bedside this morning. Events from the last 24 hours have been reviewed. The patient is currently afebrile, hemodynamically stable and maintaining appropriate oxygen saturations on assist control mode of mechanical ventilation with an FiO2 requirement of 40% and PEEP of 5. The patient is alert and oriented. The patient passed his spontaneous breathing trial this morning. He is currently documented to be overall net +9.4 L for the hospital admission. The patient remains on dextrose containing fluids due to hypoglycemia. In addition, the patient remains on antimicrobials, Decadr on and Lovenox. Objective Data Objective Data The patient's most recent lab work, culture data and imaging studies have all been personally reviewed. Sputum culture dated February 01 was positive for MSSA. Vital Signs: Vital Signs Temp Pulse Resp BP Pulse Ox 99.0 F 70 28 H 141/85 H 97 02/06/21 04:00 02/06/21 07:00 02/06/21 07:00 02/06/21 07:00 02/06/21 07:00 Oxygen Flow Rate (L/min) 12 Oxygen Delivery Method Nasal Cannula Weight: 94.574 kg Body Mass Index (BMI) 28.3 Intake & Output: Intake and Output for Last 24 Hours 02/04/21 02/05/21 02/06/21 23:59 23:59 23:59 Intake Total 1751.12 / 1751.12 2146.91 / 2166.91 867.50 / 867.50 Output Total 1375 / 1375 925 / 1250 475 / 475 Balance 376.12 / 376.12 1221.91 / 916.91 392.50 / 392.50 Lab / Micro Data Attestation: I reviewed the patient's lab results. Result Diagrams: 02/06/21 04:40 02/06/21 04:40 Labs: Laboratory Results - last 24 hr 02/05/21 06:39: POC Glucose 43 L* 02/05/21 06:43: POC Glucose 47 L 02/05/21 10:53: POC Glucose 63 L 02/05/21 17:32: POC Glucose 85 02/06/21 00:33: POC Glucose 77 02/06/21 04:40: WBC 15.6 H, RBC 3.61 L, Hgb 12.0 L, Hct 35.5 L, MCV 98.3 H, MCH 33.2 H, MCHC 33.8, RDW Std Deviation 44.8 H, RDW Coeff of Blanca 12.3, Plt Count 278, MPV 10.2, Immature Gran % (Auto) 1.800 H, Neut % (Auto) 80.3 H, Lymph % (Auto) 11.5 L, [place] % (Auto) 5.5, Eos % (Auto) 0.5, Baso % (Auto) 0.4, Absolute Neuts (auto) 12.5 H, Absolute Lymphs (auto) 1.80, Nucleated RBC % 0 02/06/21 04:40: Sodium 140, Potassium 3.9, Chloride 105, Carbon Dioxide 29.0, Anion Gap 6, BUN 22 H, Creatinine 0.54 L, Estim Creat Clear Calc 163.35, Est GFR (MDRD) Af Amer 205, Est GFR (MDRD) Non-Af 170, BUN/Creatinine Ratio 41.0 H, Glucose 45 L, Calcium 7.9 L, Magnesium 2.3, Total Bilirubin 0.50, AST 22, ALT 36, Alkaline Phosphatase 54, Total Protein 4.9 L, Albumin 1.8 L, Globulin 3.1, Albumin/Globulin Ratio 0.6 L Micro: Microbiology 02/05/21 09:31 Sputum, Induced/Lukens Gram Stain - Final 02/01/21 11:45 Blood Culture (Wb) - Left Wrist Blood Culture - Preliminary No growth in 48 hours. 02/01/21 11:25 Blood Culture (Wb) - Central Line Blood Culture - Preliminary No growth in 48 hours. 02/01/21 11:30 Sputum, Induced/Lukens Gram Stain - Final 02/01/21 11:30 Sputum, Induced/Lukens Respiratory Culture - Final Staphylococcus aureus 01/27/21 18:30 Blood Culture (Wb) - Anticubital Left Blood Culture - Final No growth in 5 days. 01/27/21 18:33 Blood Culture (Wb) - Central Line Blood Culture - Final No growth in 5 days. 01/30/21 13:20 Stool C. difficile DNA Amplification - Final 01/28/21 08:20 Sputum, Induced/Lukens Gram Stain - Final 01/28/21 08:20 Sputum, Induced/Lukens Respiratory Culture - Final Mixed normal respiratory eulalia. No Streptococcus pneumoniae, beta-hemolytic Streptococcus or Staphylococcus aureus isolated. 01/27/21 21:40 Urine Catheter - Catheter Urine Culture - Final Culture exhibits no growth. 01/27/21 19:30 Mucosa - Nose Respiratory Panel (PCR) - Final 01/27/21 19:25 Urine Catheter - Catheter Legionella Antigen - Final 01/27/21 19:25 Urine Catheter - Catheter Streptococcus pneumoniae Antigen (M - Final Physical Exam Const Constitutional Narrative: Alert and able to follow commands appropriately. General Appearance: intubated and patient mechanically ventilated Nutritional Appearance: obese HEENT normocephalic and head/scalp atraumatic Mouth: endotracheal tube in place and OG tube in place Eyes PERRL and conjunctivae normal Neck supple General: trachea midline Chest inspection of chest normal Resp Auscultation: rhonchi and diminished lung sounds; Negative for rales or wheezes Cardio regular rate and regular rhythm GI soft to palpation and non-tender Auscultation: hypoactive bowel sounds Extremity no clubbing, cyanosis or edema Skin no rashes or lesions noted Neuro moves all extremities Charges/Coding Procedures Hospitalists Procedures: 61942 Critial Care 1st Hr
--- NOTE | 2021-02-06 07:12 | PN.HOSP_ITS ---
Subjective Subjective Patient successfully weaned off the vent this a.m. Seen complains of abdominal discomfort Objective Data Objective Data Vital Signs: Vital Signs Temp Pulse Resp BP Pulse Ox 99.0 F 70 28 H 141/85 H 97 02/06/21 04:00 02/06/21 07:00 02/06/21 07:00 02/06/21 07:00 02/06/21 07:00 Oxygen Flow Rate (L/min) 12 Oxygen Delivery Method Nasal Cannula Weight: 94.574 kg Body Mass Index (BMI) 28.3 Intake & Output: Intake and Output for Last 24 Hours 02/04/21 02/05/21 02/06/21 23:59 23:59 23:59 Intake Total 1751.12 / 1751.12 2146.91 / 2166.91 867.50 / 867.50 Output Total 1375 / 1375 925 / 1250 475 / 475 Balance 376.12 / 376.12 1221.91 / 916.91 392.50 / 392.50 Lab / Micro Data Result Diagrams: 02/06/21 04:40 02/06/21 04:40 Labs: Laboratory Results - last 24 hr 02/05/21 06:39: POC Glucose 43 L* 02/05/21 06:43: POC Glucose 47 L 02/05/21 10:53: POC Glucose 63 L 02/05/21 17:32: POC Glucose 85 02/06/21 00:33: POC Glucose 77 02/06/21 04:40: WBC 15.6 H, RBC 3.61 L, Hgb 12.0 L, Hct 35.5 L, MCV 98.3 H, MCH 33.2 H, MCHC 33.8, RDW Std Deviation 44.8 H, RDW Coeff of Blanca 12.3, Plt Count 278, MPV 10.2, Immature Gran % (Auto) 1.800 H, Neut % (Auto) 80.3 H, Lymph % (Auto) 11.5 L, [place] % (Auto) 5.5, Eos % (Auto) 0.5, Baso % (Auto) 0.4, Absolute Neuts (auto) 12.5 H, Absolute Lymphs (auto) 1.80, Nucleated RBC % 0 02/06/21 04:40: Sodium 140, Potassium 3.9, Chloride 105, Carbon Dioxide 29.0, Anion Gap 6, BUN 22 H, Creatinine 0.54 L, Estim Creat Clear Calc 163.35, Est GFR (MDRD) Af Amer 205, Est GFR (MDRD) Non-Af 170, BUN/Creatinine Ratio 41.0 H, Glucose 45 L, Calcium 7.9 L, Magnesium 2.3, Total Bilirubin 0.50, AST 22, ALT 36, Alkaline Phosphatase 54, Total Protein 4.9 L, Albumin 1.8 L, Globulin 3.1, Albumin/Globulin Ratio 0.6 L Micro: Microbiology 02/05/21 09:31 Sputum, Induced/Lukens Gram Stain - Final 02/01/21 11:45 Blood Culture (Wb) - Left Wrist Blood Culture - Preliminary No growth in 48 hours. 02/01/21 11:25 Blood Culture (Wb) - Central Line Blood Culture - Preliminary No growth in 48 hours. 02/01/21 11:30 Sputum, Induced/Lukens Gram Stain - Final 02/01/21 11:30 Sputum, Induced/Lukens Respiratory Culture - Final Staphylococcus aureus 01/27/21 18:30 Blood Culture (Wb) - Anticubital Left Blood Culture - Final No growth in 5 days. 01/27/21 18:33 Blood Culture (Wb) - Central Line Blood Culture - Final No growth in 5 days. 01/30/21 13:20 Stool C. difficile DNA Amplification - Final 01/28/21 08:20 Sputum, Induced/Lukens Gram Stain - Final 01/28/21 08:20 Sputum, Induced/Lukens Respiratory Culture - Final Mixed normal respiratory eulalia. No Streptococcus pneumoniae, beta-hemolytic Streptococcus or Staphylococcus aureus isolated. 01/27/21 21:40 Urine Catheter - Catheter Urine Culture - Final Culture exhibits no growth. 01/27/21 19:30 Mucosa - Nose Respiratory Panel (PCR) - Final 01/27/21 19:25 Urine Catheter - Catheter Legionella Antigen - Final 01/27/21 19:25 Urine Catheter - Catheter Streptococcus pneumoniae Antigen (M - Final Physical Exam Narrative GENERAL: Awake HEENT: Atraumatic; EYES; Anicteric, Normal Conjunctiva NECK; supple, normal thyroid, RESPIRATORY: Diminished to auscultation CARDIOVASCULAR: Regular S1 S2, GI: Nondistended, abdominal incision clean dry and intact : No Renal angle tenderness; EXTREMITIES: No edema, no clubbing, MUSCULOSKELETAL: no muscle waisting NEURO: Awake; no lateralizing signs. SKIN: No Rash PSYCH; Flat affect Assessment & Plan Assessment/Plan (1) Acute respiratory failure with hypoxia: PLAN: Patient is a 55-year-old gentleman unvaccinated against COVID-19 who presented with progressive shortness of breath. Patient has been diagnosed with COVID-19 pneumonia on 01/17/2021 symptoms started on 01/16/2021. An assessment of acute hypoxic respiratory failure made admitted to intensive care unit for subsequent management 1. Acute hypoxic respiratory failure ?Secondary to SARS-CoV-2 pneumonia. Patient admitted to the intensive care unit placed on ventilator. Patient was outside the window for remdesivir. Was started on Decadron. Did receive a dose of Tocilizumab -02/06/2021; weaned off the vent 2. Severe sepsis ?Secondary to SARS-CoV-2 pneumonia with superimposed bacterial pneumonia (staph pneumonia). Patient did receive IV fluid resuscitation and subsequently started on broad-spectrum antibiotic therapy with Zosyn and vancomycin with consultation placed to ID 3. Perforated cecum with very dilated ascending and transverse colon ?Patient underwent exploratory laparotomy with extended right hemicolectomy on 02/04/[address] Wood -02/06/2021 postoperative day 2. Patient complains of some abdominal discomfort his surgical incision however remains clean dry and intact 4. Hyperglycemia ?Secondary to chronic steroid use Patient is currently on long-acting insulin in addition to sliding scale coverage 5. Essential hypertension ?Blood pressure on the low side patient antihypertensives never restarted 6. Dyslipidemia ?On statin therapy prior to admission 7. DVT prophylaxis ?SC Lovenox Charges/Coding Visit Charges Inpatient E&M: [id number] [facility] L3
--- NOTE | 2021-02-06 08:03 | PCM.PN.SRG ---
Subjective Subjective Patient extubated this morning and complains of no abdominal pain Objective Data Objective Data Vital Signs: Vital Signs Temp Pulse Resp BP Pulse Ox 99.0 F 70 28 H 141/85 H 97 02/06/21 04:00 02/06/21 07:00 02/06/21 07:00 02/06/21 07:00 02/06/21 07:00 Oxygen Flow Rate (L/min) 12 Oxygen Delivery Method Nasal Cannula Weight: 208 lb 8 oz Body Mass Index (BMI) 28.3 Intake & Output: Intake and Output for Last 24 Hours 02/04/21 02/05/21 02/06/21 23:59 23:59 23:59 Intake Total 1751.12 / 1751.12 2146.91 / 2166.91 867.50 / 867.50 Output Total 1375 / 1375 925 / 1250 475 / 475 Balance 376.12 / 376.12 1221.91 / 916.91 392.50 / 392.50 Lab / Micro Data Result Diagrams: 02/06/21 04:40 02/06/21 04:40 Labs: Laboratory Results - last 24 hr 02/05/21 06:39: POC Glucose 43 L* 02/05/21 06:43: POC Glucose 47 L 02/05/21 10:53: POC Glucose 63 L 02/05/21 17:32: POC Glucose 85 02/06/21 00:33: POC Glucose 77 02/06/21 04:40: WBC 15.6 H, RBC 3.61 L, Hgb 12.0 L, Hct 35.5 L, MCV 98.3 H, MCH 33.2 H, MCHC 33.8, RDW Std Deviation 44.8 H, RDW Coeff of Blanca 12.3, Plt Count 278, MPV 10.2, Immature Gran % (Auto) 1.800 H, Neut % (Auto) 80.3 H, Lymph % (Auto) 11.5 L, [place] % (Auto) 5.5, Eos % (Auto) 0.5, Baso % (Auto) 0.4, Absolute Neuts (auto) 12.5 H, Absolute Lymphs (auto) 1.80, Nucleated RBC % 0 02/06/21 04:40: Sodium 140, Potassium 3.9, Chloride 105, Carbon Dioxide 29.0, Anion Gap 6, BUN 22 H, Creatinine 0.54 L, Estim Creat Clear Calc 163.35, Est GFR (MDRD) Af Amer 205, Est GFR (MDRD) Non-Af 170, BUN/Creatinine Ratio 41.0 H, Glucose 45 L, Calcium 7.9 L, Magnesium 2.3, Total Bilirubin 0.50, AST 22, ALT 36, Alkaline Phosphatase 54, Total Protein 4.9 L, Albumin 1.8 L, Globulin 3.1, Albumin/Globulin Ratio 0.6 L Micro: Microbiology 02/05/21 09:31 Sputum, Induced/Lukens Gram Stain - Final 02/01/21 11:45 Blood Culture (Wb) - Left Wrist Blood Culture - Preliminary No growth in 48 hours. 02/01/21 11:25 Blood Culture (Wb) - Central Line Blood Culture - Preliminary No growth in 48 hours. 02/01/21 11:30 Sputum, Induced/Lukens Gram Stain - Final 02/01/21 11:30 Sputum, Induced/Lukens Respiratory Culture - Final Staphylococcus aureus 01/27/21 18:30 Blood Culture (Wb) - Anticubital Left Blood Culture - Final No growth in 5 days. 01/27/21 18:33 Blood Culture (Wb) - Central Line Blood Culture - Final No growth in 5 days. 01/30/21 13:20 Stool C. difficile DNA Amplification - Final 01/28/21 08:20 Sputum, Induced/Lukens Gram Stain - Final 01/28/21 08:20 Sputum, Induced/Lukens Respiratory Culture - Final Mixed normal respiratory eulalia. No Streptococcus pneumoniae, beta-hemolytic Streptococcus or Staphylococcus aureus isolated. 01/27/21 21:40 Urine Catheter - Catheter Urine Culture - Final Culture exhibits no growth. 01/27/21 19:30 Mucosa - Nose Respiratory Panel (PCR) - Final 01/27/21 19:25 Urine Catheter - Catheter Legionella Antigen - Final 01/27/21 19:25 Urine Catheter - Catheter Streptococcus pneumoniae Antigen (M - Final Physical Exam Const no apparent distress GI soft to palpation and non-tender Assessment & Plan Assessment/Plan (1) Perforated bowel: PLAN: Patient is extubated this morning. He did have a loose bowel movement overnight. He reports no abdominal pain and his abdomen is soft and nontender. After his speech therapy evaluation the patient may start a clear liquid diet. Continue antibiotic for 24 more hours. Jesús Wood MD Pager: [facility] [address] [place] [address], [address] [place] [address] Office:
[2021-02-06] MEDS: Furosemide 40 MG/4 ML Vial IV (08:26)
[2021-02-06 08:50] LABS: Bedside Glucose 49 mg/dL (70-110)
[2021-02-06] MEDS: fentaNYL 100 MCG/2 ML Ampul 25 MCG IV ×4 (11:00→22:02)
[2021-02-06] MEDS: 0.9% Saline Lock 10 ML Syringe IV ×2 (11:01→22:25)
[2021-02-06] MEDS: Enoxaparin 30 MG/0.3 ML Syringe SC ×2 (11:01→22:02)
[2021-02-06] MEDS: dexAMETHasone 4 MG/ML Vial 6 MG IV (11:01)
[2021-02-06 14:10] LABS: Bedside Glucose 88 mg/dL (70-110)
--- NOTE | 2021-02-06 14:30 | PCM.RX.CS ---
Consult Pharmacy has been consulted to manage selected antiobiotic: Vancomycin Type of Consult: New start Suspected Infection: Pneumonia Prior Doses of Antibiotics Received/Current Regimen: had been on vanc 1000mg IV q8h but that was stopped approximately 2 1/2 days ago after only a couple doses Labs: Sodium 140 mmol/L (136-145) 02/06/21 04:40 Potassium 3.9 mmol/L (3.5-5.1) 02/06/21 04:40 Chloride 105 mmol/L (98-107) 02/06/21 04:40 Carbon Dioxide 29.0 mmol/L (21.0-32.0) 02/06/21 04:40 Anion Gap 6 (5-15) 02/06/21 04:40 BUN 22 mg/dL (7-18) H 02/06/21 04:40 Creatinine 0.54 mg/dL (0.70-1.30) L 02/06/21 04:40 Est GFR (MDRD) Af Amer 205 mL/min (>60) 02/06/21 04:40 Est GFR (MDRD) Non-Af 170 mL/min (>60) 02/06/21 04:40 BUN/Creatinine Ratio 41.0 RATIO (10-20) H 02/06/21 04:40 Glucose 45 mg/dL (74-106) L 02/06/21 04:40 Vancomycin Trough < 0.8 ug/mL (5.0-15.0) L 02/03/21 12:30 Microbiology: Microbiology 02/01/21 11:25 Blood Culture (Wb) - Central Line Blood Culture - Final No growth in 5 days. 02/01/21 11:45 Blood Culture (Wb) - Left Wrist Blood Culture - Final No growth in 5 days. 02/05/21 09:31 Sputum, Induced/Lukens Gram Stain - Final 02/05/21 09:31 Sputum, Induced/Lukens Respiratory Culture - Preliminary Staphylococcus aureus 02/01/21 11:30 Sputum, Induced/Lukens Gram Stain - Final 02/01/21 11:30 Sputum, Induced/Lukens Respiratory Culture - Final Staphylococcus aureus 01/27/21 18:30 Blood Culture (Wb) - Anticubital Left Blood Culture - Final No growth in 5 days. 01/27/21 18:33 Blood Culture (Wb) - Central Line Blood Culture - Final No growth in 5 days. 01/30/21 13:20 Stool C. difficile DNA Amplification - Final 01/28/21 08:20 Sputum, Induced/Lukens Gram Stain - Final 01/28/21 08:20 Sputum, Induced/Lukens Respiratory Culture - Final Mixed normal respiratory eulalia. No Streptococcus pneumoniae, beta-hemolytic Streptococcus or Staphylococcus aureus isolated. 01/27/21 21:40 Urine Catheter - Catheter Urine Culture - Final Culture exhibits no growth. 01/27/21 19:30 Mucosa - Nose Respiratory Panel (PCR) - Final 01/27/21 19:25 Urine Catheter - Catheter Legionella Antigen - Final 01/27/21 19:25 Urine Catheter - Catheter Streptococcus pneumoniae Antigen (M - Final Weight used for dosin.5 kg Estimated Creatinine Clearance: 163ml/min Goal Trough: 15-20 mcg/mL Pharmacy Plan for Drug Dosing: Since it has been approx 2 1/2 days ago that the patient last had a dose of vanc, will restart as ordered with a standard loading dose (15mg/kg) of 1500mg IV x1, then will continue with 1000mg IV q8h. Will check a vanc trough before the 4th total dose tomorrow. Pharmacy Service will continue to monitor and adjust dosing as required. Follow-Up Labs: Trough Vancomycin Labs to be done on [date and time ordered]: 02/07/21 12:30
[2021-02-06 18:05] LABS: Bedside Glucose 114 mg/dL (70-110)
[2021-02-06] MEDS: guaiFENesin 10 ML UDC (200MG/10ML) GT (20:50)
[2021-02-06] MEDS: Vancomycin IV 1,000 MG/200 ML BAG 200 MG IV (21:18)
[2021-02-07] VITALS (33 sets, daily range): BP systolic 108–151; BP diastolic 64–99; PULSE 56–108; RESP 12–40; TEMP 36.4–36.9; O2SAT 68–98
[2021-02-07 00:25] LABS: Bedside Glucose 97 mg/dL (70-110)
[2021-02-07] MEDS: fentaNYL 100 MCG/2 ML Ampul 25 MCG IV ×3 (02:06→18:31)
[2021-02-07 03:27] LABS: Absolute Lymphocyte Count 1.89 X10^3/uL (0.83-4.51); Absolute Neutrophil Count 12.3 X10^3/uL (2.0-7.7); Basophil# 0.04 X10^3/uL; Basophil% 0.3 % (0-1); Eosinophil# 0.09 X10^3/uL; Eosinophils% 0.6 % (0-5); Hematocrit 36.4 % (40-54); Hemoglobin 12.5 g/dL (13.0-16.5); Lymphocyte # 1.89 X10^3/ul (0.83-4.51); Lymphocyte % 12.2 % (19-41); Mean Corp Hgb Conc 34.3 g/dL (32-36); Mean Platelet Vol. 9.9 fl (6.2-12.0); Monocyte# 0.94 X10^3/uL; Monocyte% 6.1 % (0-10); NRBC Flagged by Analyzer 0 % (0-5); Neutrophil # 12.32 X10^3/uL (2.7-7.7); Neutrophil % 79.6 % (47-70); POSITIVE MORPHOLOGY YES; Platelet Count 280 K/mm3 (150-450); RBC Distribution Width CV 12.5 % (11.6-14.6); RBC Distribution Width SD 43.3 fl (35.1-43.9); Red Blood Count 3.79 M/mm3 (4.6-6.2); White Blood Count 15.5 K/mm3 (4.4-11.0)
[2021-02-07 03:38] LABS: Differential Indicated SCAN CRITERIA MET
[2021-02-07 03:40] LABS: Atypical Lymphocyte 1+ %
[2021-02-07 03:43] LABS: ALB/GLOB Ratio 0.7 RATIO (0.9-2.4); AST(SGOT) 24 U/L (15-37); Alanine Aminotransfer ALT/SGPT 36 U/L (16-61); Albumin, Serum 2.2 g/dL (3.2-5.0); Alkaline Phosphatase 70 U/L (45-117); Anion Gap 4 (5-15); BUN 15 mg/dL (7-18); BUN/Creat Ratio 23.8 RATIO (10-20); Calcium,Total 8.4 mg/dL (8.5-10.1); Chloride 102 mmol/L (98-107); Creatinine, Serum 0.63 mg/dL (0.70-1.30); EST Glomerular Filtration Rate 141 mL/min (>60); Est Glom Filt Rate - Afr Amer 171 mL/min (>60); Estimated Creatinine Clearance 140.01 ml/min; Globulin 3.3 g/dL (2.2-4.2); Glucose 82 mg/dL (74-106); Potassium 3.8 mmol/L (3.5-5.1); Protein, Total 5.5 g/dL (6.4-8.2); Sodium Level 138 mmol/L (136-145)
[2021-02-07] MEDS: Vancomycin IV 1,000 MG/200 ML BAG 200 MG IV (04:02)
[2021-02-07] MEDS: 0.9% Saline Lock 10 ML Syringe IV ×3 (04:02→08:37)
[2021-02-07] MEDS: Menthol/Lanolin/Calamine/Znox 113 GM Tube 1 APPLIC TOPICAL ×3 (04:04→20:33)
--- NOTE | 2021-02-07 04:30 | NURSING ---
pt kept coughing and 02 sats drop to 68% on 9lnc. Pt changed over to 50% mask with 12l bleed in. Pt c/o feeling very anxious. dr england notified
[2021-02-07] MEDS: LORazepam 2 MG/ML Syringe 0.5 MG IV (04:40)
--- NOTE | 2021-02-07 04:52 | NURSING ---
pt pulse ox 86% on 50% vm. Pt switch to airvo 60l 83%. po then 91
[2021-02-07 05:11] LABS: Bedside Glucose 125 mg/dL (70-110)
--- NOTE | 2021-02-07 05:15 | NURSING ---
pt pulse ox still remains in 86 to 88%. airvo increase to 60l fi02 94%.
--- NOTE | 2021-02-07 05:48 | RAD_ITS ---
STUDY: X-RAY CHEST REASON FOR EXAM: Male, 55 years old. Increase sob and increase resp TECHNIQUE: Portable, upright, AP chest radiograph COMPARISON: 01/27/2021 FINDINGS: Right IJ central catheter remains. Endotracheal tube and enteric catheters no longer demonstrated. Increased bilateral pulmonary infiltrates. Moderate-sized right pleural effusion with lateral compartment. Normal size heart. Normal mediastinum and nadia. Normal visualized pulmonary arteries. Normal visualized aortic arch and descending thoracic aorta. There is no demonstrated abnormality of the visualized soft tissue structures of the upper abdomen. RAD/Chest 1 View (Portable) IMPRESSION: Increased bilateral pulmonary infiltrates. New right pleural effusion. Electronically Signed: Serjio Guzman MD at 6:38 EDT Tel , Service support ,
--- NOTE | 2021-02-07 05:51 | NURSING ---
Dr Camacho notfied of pt resp rate 30-40. pulse ox 86 to 88 % on airvo. Ordered to get chest xray and bipap. Julio Cesar notified
--- NOTE | 2021-02-07 06:47 | PCM.PN.INT ---
Assessment & Plan Assessment/Plan (1) Acute respiratory failure with hypoxia: (2) Pneumonia due to COVID-19 virus: PLAN: RECOMMENDATIONS: 1. Maintain patient on BiPAP therapy for now. If he improves clinically, attempt can be made to transition him to heated high flow. 2. Maintain oxygen saturations at or above 90%. 3. Start scheduled IV Lasix. 4. Discontinue IV fluids. 5. Check BNP, troponin and obtain echocardiogram. 6. Continue antimicrobials as ordered. 7. Await formal speech therapy evaluation. 8. Continue PPI therapy and Lovenox. IMPRESSIONS: 1. Acute hypoxemic respiratory failure secondary to COVID-19 pneumonia The patient presented to the hospital with progressive Covid symptoms after having been initially diagnosed at the end of December. He was therefore outside of the window for remdesivir. CTA chest showed no evidence for pulmonary embolism. The patient was emergently intubated in the emergency department. The patient has completed his treatment courses for his Covid. He remains on antimicrobials for the MSSA isolated from his sputum. The patient improved from a respiratory perspective and was able to be extubated on February 06. However, approximately 12 hours after extubation, the patient developed a significant coughing episode, which led to respiratory decompensation and the need to initiate BiPAP support. Therefore, the patient will be continued on noninvasive positive pressure ventilatory support this morning. Attempts will be made to wean him to heated high flow, if able. Repeat chest x-ray did reveal worsening infiltrates, predominantly throughout the right hemithorax. The patient is up from a volume perspective and will therefore be started on twice daily IV Lasix. His respiratory status is tenuous and he would likely be unable to pass a swallow evaluation. 2. Bowel perforation, now POD #3 s/p exploratory laparotomy with right hemicolectomy Continue local wound care and dietary advancement per general surgery recommendations. 3. Acute kidney injury Resolved. Likely prerenal in etiology. The patient did initially respond to fluid resuscitation. However, supplemental IV fluids have been discontinued at this time. Creatinine has subsequently normalized. We will continue to monitor urine output. Continue to diurese intermittently to attempt to euvolemia. 4. Obesity/hypertension/hyperlipidemia Complicates care, management, recovery and prognosis. Continue home medications as indicated. Continue to hold Lantus for now. TIME: 32 minutes of critical care time, independent of procedures, was spent addressing the patient's acute hypoxemic respiratory failure secondary to COVID-19 pneumonia, bowel perforation status post right hemicolectomy, acute kidney injury, review of all data and collaboration with the care team. ([id number]) Subjective Subjective The patient was seen and examined at the bedside this morning. Events from the last 24 hours have been reviewed. Initially, the patient did quite well following extubation yesterday. He was able to be weaned down to 9 L/min via nasal cannula. However, overnight, the patient apparently went into a coughing spell, which led to respiratory decompensation and worsening hypoxemia. The patient was initially placed on heated high flow oxygen, which ultimately had to be transition to BiPAP support this morning. FiO2 requirement is currently 80%. Repeat chest x-ray from this morning revealed worsened pulmonary infiltrates, primarily throughout the right hemithorax with opacification of the right costophrenic angle. The patient is currently documented to be overall net +7.5 L for the hospitalization. Renal function is stable. The patient remains n.p.o., pending evaluation by speech therapy. Objective Data Objective Data The patient's most recent lab work, culture data and imaging studies have all been personally reviewed. Sputum culture dated February 01 was positive for MSSA. Vital Signs: Vital Signs Temp Pulse Resp BP Pulse Ox 98 F 64 28 H 138/85 H 97 02/07/21 04:00 02/07/21 06:00 02/07/21 06:00 02/07/21 06:00 02/07/21 06:00 Oxygen Flow Rate (L/min) 60 Oxygen Delivery Method Bi-pap Weight: 91.898 kg Body Mass Index (BMI) 28.3 Intake & Output: Intake and Output for Last 24 Hours 02/05/21 02/06/21 02/07/21 23:59 23:59 23:59 Intake Total 2146.91 / 2166.91 2919.00 / 2919.00 250 / 250 Output Total 925 / 1250 3125 / 3875 1550 / 1550 Balance 1221.91 / 916.91 -206.00 / -956.00 -1300 / -1300 Lab / Micro Data Attestation: I reviewed the patient's lab results. Result Diagrams: 02/07/21 03:15 02/07/21 03:15 Labs: Laboratory Results - last 24 hr 02/06/21 06:06: POC Glucose 49 L 02/06/21 14:08: POC Glucose 88 02/06/21 17:57: POC Glucose 114 H 02/07/21 00:19: POC Glucose 97 02/07/21 03:15: WBC 15.5 H, RBC 3.79 L, Hgb 12.5 L, Hct 36.4 L, MCV 96.0 H, MCH 33.0 H, MCHC 34.3, RDW Std Deviation 43.3, RDW Coeff of Blanca 12.5, Plt Count 280, MPV 9.9, Immature Gran % (Auto) 1.200 H, Neut % (Auto) 79.6 H, Lymph % (Auto) 12.2 L, [place] % (Auto) 6.1, Eos % (Auto) 0.6, Baso % (Auto) 0.3, Absolute Neuts (auto) 12.3 H, Absolute Lymphs (auto) 1.89, Nucleated RBC % 0, Atypical Lymphocytes 1+ 02/07/21 03:15: Sodium 138, Potassium 3.8, Chloride 102, Carbon Dioxide 32.0, Anion Gap 4 L, BUN 15, Creatinine 0.63 L, Estim Creat Clear Calc 140.01, Est GFR (MDRD) Af Amer 171, Est GFR (MDRD) Non-Af 141, BUN/Creatinine Ratio 23.8 H, Glucose 82, Calcium 8.4 L, Total Bilirubin 0.60, AST 24, ALT 36, Alkaline Phosphatase 70, Total Protein 5.5 L, Albumin 2.2 L, Globulin 3.3, Albumin/Globulin Ratio 0.7 L 02/07/21 05:04: POC Glucose 125 H Micro: Microbiology 02/01/21 11:25 Blood Culture (Wb) - Central Line Blood Culture - Final No growth in 5 days. 02/01/21 11:45 Blood Culture (Wb) - Left Wrist Blood Culture - Final No growth in 5 days. 02/05/21 09:31 Sputum, Induced/Lukens Gram Stain - Final 02/05/21 09:31 Sputum, Induced/Lukens Respiratory Culture - Preliminary Staphylococcus aureus 02/01/21 11:30 Sputum, Induced/Lukens Gram Stain - Final 02/01/21 11:30 Sputum, Induced/Lukens Respiratory Culture - Final Staphylococcus aureus 01/27/21 18:30 Blood Culture (Wb) - Anticubital Left Blood Culture - Final No growth in 5 days. 01/27/21 18:33 Blood Culture (Wb) - Central Line Blood Culture - Final No growth in 5 days. 01/30/21 13:20 Stool C. difficile DNA Amplification - Final 01/28/21 08:20 Sputum, Induced/Lukens Gram Stain - Final 01/28/21 08:20 Sputum, Induced/Lukens Respiratory Culture - Final Mixed normal respiratory eulalia. No Streptococcus pneumoniae, beta-hemolytic Streptococcus or Staphylococcus aureus isolated. 01/27/21 21:40 Urine Catheter - Catheter Urine Culture - Final Culture exhibits no growth. 01/27/21 19:30 Mucosa - Nose Respiratory Panel (PCR) - Final 01/27/21 19:25 Urine Catheter - Catheter Legionella Antigen - Final 01/27/21 19:25 Urine Catheter - Catheter Streptococcus pneumoniae Antigen (M - Final Radiography Diagnostic Testing: Radiology Impression Chest X-Ray 02/07/21 05:48 IMPRESSION: Increased bilateral pulmonary infiltrates. New right pleural effusion. Electronically Signed: Serjio Guzman MD at 6:38 EDT Tel , Service support , Physical Exam Const alert General Appearance: cooperative and on BiPAP Nutritional Appearance: obese HEENT normocephalic and head/scalp atraumatic Eyes PERRL, EOMs intact bilaterally and conjunctivae normal Neck supple General: trachea midline Chest inspection of chest normal Resp Effort and Inspection: tachypneic Auscultation: diminished lung sounds; Negative for rales, rhonchi or wheezes Cardio regular rate and regular rhythm GI soft to palpation and non-tender Auscultation: hypoactive bowel sounds Extremity no clubbing, cyanosis or edema Skin no rashes or lesions noted Neuro moves all extremities and no focal motor deficits Psych Mood & Affect: anxious Charges/Coding Procedures Hospitalists Procedures: 18401 Critial Care 1st Hr
--- NOTE | 2021-02-07 06:52 | ECHOCS_ITS ---
Reason For Study: Dyspnea/SOB Procedure This was a 2D Doppler, Color Flow transthoracic echocardiogram. The study was technically difficult. Contrast injection was performed. Patient scanned sitting up due to SOB. No subcostal images obtained due to abdominal surgery/bandages from 02/05/2021. Exam performed portable in ICU/CCU. Left Ventricle Normal LV size. Left ventricular systolic function is normal. The estimated ejection fraction is 60 %. No regional wall motion abnormalities noted. Right Ventricle Normal RV size. Normal systolic function. Atria The left atrium is not well visualized. Mitral Valve Mitral valve not well visualized. Tricuspid Valve Normal tricuspid valve. Aortic Valve Normal aortic valve. Trisinus/trileaflet aortic valve. Pulmonic Valve The pulmonic valve is not well visualized. Great Vessels Normal aortic root. Pericardium/Pleural Small pericardial effusion. Medication Diluted definity 3ml given slow IV push to enhance endocardial definition. MMode/2D Measurements & Calculations LVIDd: 3.5 cm IVSd: 1.4 cm LVIDs: 2.1 cm LVPWd: 1.2 cm FS: 40.4 % Time Measurements MV dec time: 0.28 sec Doppler Measurements & Calculations MV E max olvin: 48.4 cm/sec Lat Peak E' Olvin: 6.5 cm/sec Med Peak E' Olvin: 6.2 cm/sec MV A max olvin: 66.6 cm/sec E/E' lat: 7.4 E/E' med: 7.8 MV E/A: 0.73 MV V2 max: 77.1 cm/sec MV P1/2t max olvin: 55.0 cm/sec Ao V2 max: 125.2 cm/sec MV max P.4 mmHg MV P1/2t: 78.1 msec Ao max P.3 mmHg MV V2 mean: 39.6 cm/sec MV mean P.73 mmHg MV dec slope: 206.4 cm/sec2 MV V2 VTI: 16.6 cm MVA(P1/2t): 2.8 cm2 LV V1 max: 104.0 cm/sec PA V2 max: 122.3 cm/sec LV V1 max P.3 mmHg ECHO/Echo Complete W/ Contrast Interpretation Summary Normal LV size. Left ventricular systolic function is normal. The estimated ejection fraction is 60 %. No regional wall motion abnormalities noted. Contrast injection was performed. The study was technically limited. The study was technically difficult. Ordering Physician: Gualberto Camacho Referring Physician: Doroteo Camacho Performed By: Isidoro Kingsley RCS
--- NOTE | 2021-02-07 06:59 | PN.HOSP_ITS ---
Subjective Subjective Patient seen currently on BiPAP. Per nursing staff patient desaturated following prolonged episodes of coughing. His sputum cultures came back positive for staph species. Final identification and sensitivities pending. Patient empirically started on vancomycin Objective Data Objective Data Vital Signs: Vital Signs Temp Pulse Resp BP Pulse Ox 98 F 64 28 H 138/85 H 97 02/07/21 04:00 02/07/21 06:00 02/07/21 06:00 02/07/21 06:00 02/07/21 06:00 Oxygen Flow Rate (L/min) 60 Oxygen Delivery Method Bi-pap Weight: 91.898 kg Body Mass Index (BMI) 28.3 Intake & Output: Intake and Output for Last 24 Hours 02/05/21 02/06/21 02/07/21 23:59 23:59 23:59 Intake Total 2146.91 / 2166.91 2919.00 / 2919.00 1151.25 / 1151.25 Output Total 925 / 1250 3125 / 3875 1550 / 1550 Balance 1221.91 / 916.91 -206.00 / -956.00 -398.75 / -398.75 Lab / Micro Data Result Diagrams: 02/07/21 03:15 02/07/21 03:15 Labs: Laboratory Results - last 24 hr 02/06/21 06:06: POC Glucose 49 L 02/06/21 14:08: POC Glucose 88 02/06/21 17:57: POC Glucose 114 H 02/07/21 00:19: POC Glucose 97 02/07/21 03:15: WBC 15.5 H, RBC 3.79 L, Hgb 12.5 L, Hct 36.4 L, MCV 96.0 H, MCH 33.0 H, MCHC 34.3, RDW Std Deviation 43.3, RDW Coeff of Blanca 12.5, Plt Count 280, MPV 9.9, Immature Gran % (Auto) 1.200 H, Neut % (Auto) 79.6 H, Lymph % (Auto) 12.2 L, [place] % (Auto) 6.1, Eos % (Auto) 0.6, Baso % (Auto) 0.3, Absolute Neuts (auto) 12.3 H, Absolute Lymphs (auto) 1.89, Nucleated RBC % 0, Atypical Lymphocytes 1+ 02/07/21 03:15: Sodium 138, Potassium 3.8, Chloride 102, Carbon Dioxide 32.0, Anion Gap 4 L, BUN 15, Creatinine 0.63 L, Estim Creat Clear Calc 140.01, Est GFR (MDRD) Af Amer 171, Est GFR (MDRD) Non-Af 141, BUN/Creatinine Ratio 23.8 H, Glucose 82, Calcium 8.4 L, Total Bilirubin 0.60, AST 24, ALT 36, Alkaline Phosphatase 70, Total Protein 5.5 L, Albumin 2.2 L, Globulin 3.3, Albumin/Christal bulin Ratio 0.7 L 02/07/21 05:04: POC Glucose 125 H Micro: Microbiology 02/01/21 11:25 Blood Culture (Wb) - Central Line Blood Culture - Final No growth in 5 days. 02/01/21 11:45 Blood Culture (Wb) - Left Wrist Blood Culture - Final No growth in 5 days. 02/05/21 09:31 Sputum, Induced/Lukens Gram Stain - Final 02/05/21 09:31 Sputum, Induced/Lukens Respiratory Culture - Preliminary Staphylococcus aureus 02/01/21 11:30 Sputum, Induced/Lukens Gram Stain - Final 02/01/21 11:30 Sputum, Induced/Lukens Respiratory Culture - Final Staphylococcus aureus 01/27/21 18:30 Blood Culture (Wb) - Anticubital Left Blood Culture - Final No growth in 5 days. 01/27/21 18:33 Blood Culture (Wb) - Central Line Blood Culture - Final No growth in 5 days. 01/30/21 13:20 Stool C. difficile DNA Amplification - Final 01/28/21 08:20 Sputum, Induced/Lukens Gram Stain - Final 01/28/21 08:20 Sputum, Induced/Lukens Respiratory Culture - Final Mixed normal respiratory eulalia. No Streptococcus pneumoniae, beta-hemolytic Streptococcus or Staphylococcus aureus isolated. 01/27/21 21:40 Urine Catheter - Catheter Urine Culture - Final Culture exhibits no growth. 01/27/21 19:30 Mucosa - Nose Respiratory Panel (PCR) - Final 01/27/21 19:25 Urine Catheter - Catheter Legionella Antigen - Final 01/27/21 19:25 Urine Catheter - Catheter Streptococcus pneumoniae Antigen (M - Final Radiography Diagnostic Testing: Radiology Impression Chest X-Ray 02/07/21 05:48 IMPRESSION: Increased bilateral pulmonary infiltrates. New right pleural effusion. Electronically Signed: Serjio Guzman MD at 6:38 EDT Tel , Service support , Physical Exam Narrative GENERAL: AwakeOn BiPAP HEENT: Atraumatic; EYES; Anicteric, Normal Conjunctiva NECK; supple, normal thyroid, RESPIRATORY: Diminished to auscultation CARDIOVASCULAR: Regular S1 S2, GI: Nondistended, abdominal incision clean dry and intact, With positive bowel sounds : No Renal angle tenderness; EXTREMITIES: No edema, no clubbing, MUSCULOSKELETAL: no muscle waisting NEURO: Awake; no lateralizing signs. SKIN: No Rash PSYCH; Flat affect Assessment & Plan Assessment/Plan (1) Acute respiratory failure with hypoxia: PLAN: Patient is a 55-year-old gentleman unvaccinated against COVID-19 who presented with progressive shortness of breath. Patient has been diagnosed with COVID-19 pneumonia on 01/17/2021 symptoms started on 01/16/2021. An assessment of acute hypoxic respiratory failure made admitted to intensive care unit for subsequent management 1. Acute hypoxic respiratory failure ?Secondary to SARS-CoV-2 pneumonia. Patient admitted to the intensive care unit placed on ventilator. Patient was outside the window for remdesivir. Was started on Decadron. Did receive a dose of Tocilizumab -02/06/2021; weaned off the vent - 02/07/2021; patient was placed back on BiPAP following prolonged coughing episode complicated by desaturation.Patient was placed empirically on vancomycin after his cultures came back positive for staph final identification and sensitivities pending 2. Severe sepsis ?Secondary to SARS-CoV-2 pneumonia with superimposed bacterial pneumonia (staph pneumonia). Patient did receive IV fluid resuscitation and subsequently started on broad-spectrum antibiotic therapy with Zosyn and vancomycin with consultation placed to ID 3. Perforated cecum with very dilated ascending and transverse colon ?Patient underwent exploratory laparotomy with extended right hemicolectomy on 02/04/[address] Wood -02/06/2021 postoperative day 2. Patient complains of some abdominal discomfort his surgical incision however remains clean dry and intact -02/07/2021. Patient has return of bowel function plan is for patient to be started on oral diet once he passes his bedside swallow eval 4. Hyperglycemia ?Secondary to chronic steroid use Patient is currently on long-acting insulin in addition to sliding scale coverage 5. Essential hypertension ?Blood pressure on the low side patient antihypertensives never restarted 6. Dyslipidemia ?On statin therapy prior to admission 7. DVT prophylaxis ?NE Mikal Charges/Coding Visit Charges Inpatient E&M: 96434 Subs Hosp L3
[2021-02-07] MEDS: Furosemide 40 MG/4 ML Vial IV ×2 (07:03→17:21)
[2021-02-07 07:19] LABS: Troponin-I HS 19 pg/mL (3.0-78.0)
--- NOTE | 2021-02-07 09:46 | PN.SURG_ITS ---
Subjective Subjective Patient had worsening of breathing overnight although he is passing flatus with no abdominal pain Objective Data Objective Data Vital Signs: Vital Signs Temp Pulse Resp BP Pulse Ox 98 F 61 35 H 115/64 98 02/07/21 04:00 02/07/21 07:00 02/07/21 07:00 02/07/21 07:00 02/07/21 07:00 Oxygen Flow Rate (L/min) 60 Oxygen Delivery Method Bi-pap Weight: 202 lb 9.6 oz Body Mass Index (BMI) 28.3 Intake & Output: Intake and Output for Last 24 Hours 02/05/21 02/06/21 02/07/21 23:59 23:59 23:59 Intake Total 2146.91 / 2166.91 2919.00 / 2919.00 1201.25 / 1201.25 Output Total 925 / 1250 3125 / 3875 1550 / 1550 Balance 1221.91 / 916.91 -206.00 / -956.00 -348.75 / -348.75 Lab / Micro Data Result Diagrams: 02/07/21 03:15 02/07/21 03:15 Labs: Laboratory Results - last 24 hr 02/06/21 14:08: POC Glucose 88 02/06/21 17:57: POC Glucose 114 H 02/07/21 00:19: POC Glucose 97 02/07/21 03:15: WBC 15.5 H, RBC 3.79 L, Hgb 12.5 L, Hct 36.4 L, MCV 96.0 H, MCH 33.0 H, MCHC 34.3, RDW Std Deviation 43.3, RDW Coeff of Blanca 12.5, Plt Count 280, MPV 9.9, Immature Gran % (Auto) 1.200 H, Neut % (Auto) 79.6 H, Lymph % (Auto) 12.2 L, [place] % (Auto) 6.1, Eos % (Auto) 0.6, Baso % (Auto) 0.3, Absolute Neuts (auto) 12.3 H, Absolute Lymphs (auto) 1.89, Nucleated RBC % 0, Atypical Lymphocytes 1+ 02/07/21 03:15: Sodium 138, Potassium 3.8, Chloride 102, Carbon Dioxide 32.0, Anion Gap 4 L, BUN 15, Creatinine 0.63 L, Estim Creat Clear Calc 140.01, Est GFR (MDRD) Af Amer 171, Est GFR (MDRD) Non-Af 141, BUN/Creatinine Ratio 23.8 H, Glucose 82, Calcium 8.4 L, Total Bilirubin 0.60, AST 24, ALT 36, Alkaline Phosphatase 70, Total Protein 5.5 L, Albumin 2.2 L, Globulin 3.3, Albumin/Globulin Ratio 0.7 L 02/07/21 03:15: Troponin I High Sens 19 02/07/21 05:04: POC Glucose 125 H Micro: Microbiology 02/05/21 09:31 Sputum, Induced/Lukens Gram Stain - Final 02/05/21 09:31 Sputum, Induced/Lukens Respiratory Culture - Final Staphylococcus aureus 02/01/21 11:25 Blood Culture (Wb) - Central Line Blood Culture - Final No growth in 5 days. 02/01/21 11:45 Blood Culture (Wb) - Left Wrist Blood Culture - Final No growth in 5 days. 02/01/21 11:30 Sputum, Induced/Lukens Gram Stain - Final 02/01/21 11:30 Sputum, Induced/Lukens Respiratory Culture - Final Staphylococcus aureus 01/27/21 18:30 Blood Culture (Wb) - Anticubital Left Blood Culture - Final No growth in 5 days. 01/27/21 18:33 Blood Culture (Wb) - Central Line Blood Culture - Final No growth in 5 days. 01/30/21 13:20 Stool C. difficile DNA Amplification - Final 01/28/21 08:20 Sputum, Induced/Lukens Gram Stain - Final 01/28/21 08:20 Sputum, Induced/Lukens Respiratory Culture - Final Mixed normal respiratory eulalia. No Streptococcus pneumoniae, beta-hemolytic Streptococcus or Staphylococcus aureus isolated. 01/27/21 21:40 Urine Catheter - Catheter Urine Culture - Final Culture exhibits no growth. 01/27/21 19:30 Mucosa - Nose Respiratory Panel (PCR) - Final 01/27/21 19:25 Urine Catheter - Catheter Legionella Antigen - Final 01/27/21 19:25 Urine Catheter - Catheter Streptococcus pneumoniae Antigen (M - Final Radiography Diagnostic Testing: Radiology Impression Chest X-Ray 02/07/21 05:48 IMPRESSION: Increased bilateral pulmonary infiltrates. New right pleural effusion. Electronically Signed: Serjio Guzman MD at 6:38 EDT Tel , Service support , Physical Exam Cardio regular rhythm GI soft to palpation and non-tender Assessment & Plan Assessment/Plan (1) Perforated bowel: PLAN: Patient's respiratory status is declining since being extubated yesterday. Patient's abdomen is soft and benign and he is passing flatus. If he does pass speech therapy and come off BiPAP he may be started on a clear liquid diet from my standpoint. Jesús Wood MD Pager: [facility] [address] [place] [address], [address] [place] [address] Office:
[2021-02-07 12:18] LABS: BNP,B-Type NATRIURETIC PEPTIDE 30.8 pg/mL (0-100)
[2021-02-07] MEDS: Enoxaparin 30 MG/0.3 ML Syringe SC (12:19)
[2021-02-07 12:26] LABS: Bedside Glucose 96 mg/dL (70-110)
--- NOTE | 2021-02-07 13:50 | PCM.PN.ID ---
Physical Exam Narrative Extubated, breathing ok on airvo. No abd pain, passing gas. Const alert General Appearance: cooperative Resp Auscultation: diminished lung sounds Cardio regular rate and regular rhythm GI normal to inspection, nondistended, normoactive bowel sounds Skin no rashes or lesions noted ID ID: Route of nutrition/ use of supplements: [] Nutritional Intake: [] IV Site: [] Colon Catheter: [] Assessment & Plan Assessment/Plan (1) Pneumonia due to COVID-19 virus: PLAN: Sx started around 01/15. Isolate for 20 days from that point. Unvaccinated. Encouraged vaccine once recovered. Cxs neg. Wbc remains elevated but improved. UAg neg. CT neg for PE. Given toci x1 on 01/27. On dex. Sputum with mssa. Now extubated. Now with bowel perf, taken to OR 02/[address] Wood for extended R hemicolectomy. Possible side effect of tocilizumab, has been reported post marketing; d/w pharmacy, will report. On zosyn. Will follow (2) Acute respiratory failure with hypoxia: (3) Perforated bowel:
[2021-02-07] MEDS: CHLORHEXIDINE GLUC 2% CLOTH 1 EACH TOWELETTE TOPICAL (14:32)
[2021-02-07 18:35] LABS: Hematocrit 40.3 % (40-54); Mean Corp Hgb Conc 34.7 g/dL (32-36); Mean Corpuscular Hgb 33.3 pg (27.0-32.0); Mean Corpuscular Volume 95.7 fL (80-94); Mean Platelet Vol. 10.2 fl (6.2-12.0); Platelet Count 374 K/mm3 (150-450); RBC Distribution Width CV 12.5 % (11.6-14.6); RBC Distribution Width SD 43.3 fl (35.1-43.9); Red Blood Count 4.21 M/mm3 (4.6-6.2); White Blood Count 19.8 K/mm3 (4.4-11.0)
--- NOTE | 2021-02-07 18:39 | NURSING ---
placed on airvo 60L/93%, NT suctioned right nares x2, large amount of thick creamy pink-tinged secretions, placed back on bipap 100% for several minutes patient tolerated fair, able to wean FiO2 back down to 70%.
[2021-02-08] VITALS (31 sets, daily range): BP systolic 88–146; BP diastolic 58–96; PULSE 78–119; RESP 12–34; TEMP 36.3–37.1; O2SAT 88–98
[2021-02-08] MEDS: fentaNYL 100 MCG/2 ML Ampul 25 MCG IV ×2 (00:45→05:48)
[2021-02-08 00:56] LABS: Bedside Glucose 80 mg/dL (70-110)
[2021-02-08 00:56] LABS: Bedside Glucose 80 mg/dL (70-110)
--- NOTE | 2021-02-08 05:38 | PN.CC_ITS ---
Assessment & Plan Assessment/Plan (1) Acute respiratory failure with hypoxia: (2) Pneumonia due to COVID-19 virus: PLAN: RECOMMENDATIONS: 1. Continue to wean FiO2 to maintain oxygen saturations at or above 90%. 2. Continue scheduled IV Lasix as tolerated by hemodynamics and renal function. 3. Speech therapy reevaluation today. 4. Continue antimicrobials as ordered. 5. Continue PPI therapy and resume Lovenox. 6. Aggressive electrolyte repletion. IMPRESSIONS: 1. Acute hypoxemic respiratory failure secondary to COVID-19 pneumonia The patient presented to the hospital with progressive Covid symptoms after having been initially diagnosed at the end of December. He was therefore outside of the window for remdesivir. CTA chest showed no evidence for pulmonary embolism. The patient was emergently intubated in the emergency department. The patient has completed his treatment courses for his Covid. He remains on antimicrobials for the MSSA isolated from his sputum. The patient improved from a respiratory perspective and was able to be extubated on February 06. However, approximately 12 hours after extubation, the patient developed a significant coughing episode, which led to respiratory decompensation and the need to initiate BiPAP support. He has since been weaned to heated high flow oxygen, which will be continued as tolerated. The patient is up from a volume perspective and will therefore be continued on twice daily IV Lasix. 2. Bowel perforation, now POD #4 s/p exploratory laparotomy with right hemicolectomy Continue local wound care and dietary advancement per general surgery recommendations. 3. Acute kidney injury Resolved. Likely prerenal in etiology. The patient did initially respond to fluid resuscitation. However, supplemental IV fluids have been discontinued at this time. Creatinine has subsequently normalized. We will continue to monitor urine output. Continue to diurese intermittently to attempt to euvolemia. 4. Obesity/hypertension/hyperlipidemia Complicates care, management, recovery and prognosis. Continue home medications as indicated. Continue to hold Lantus for now. This note was generated with [employer] dictation software. It may contain incorrect words, spelling, and punctuation that were not noted in checking the note before signing. Subjective Subjective The patient was seen and examined at the bedside this morning. Events from the last 24 hours have been reviewed. The patient failed his swallow evaluation yesterday. Last evening, the patient apparently had a bloody bowel movement, per nursing report. The patient's evening dose of Lovenox was subsequently held. Stool for occult blood was noted to be positive. He remained on BiPAP the entire night with an FiO2 requirement of 60%. This morning, the patient was able to be transitioned to Airvo heated high flow with an FiO2 requirement of 60% and flow rate of 60 L/min. He did have to be nasal tracheal suctioned on one occurrence last evening. He is currently documented to be overall net +5.2 L for the hospital admission. Hemoglobin is stable this morning at 13.0. Potassium is low at 3.1. Creatinine remains within normal limits. Objective Data Objective Data The patient's most recent lab work, culture data and imaging studies have all been personally reviewed. Sputum culture dated February 01 was positive for MSSA. Vital Signs: Vital Signs Temp Pulse Resp BP Pulse Ox 97.3 F L 102 H 31 H 105/72 90 02/08/21 04:00 02/08/21 04:00 02/08/21 04:00 02/08/21 04:00 02/08/21 04:00 Oxygen Flow Rate (L/min) 60 Oxygen Delivery Method Bi-pap Weight: 91.898 kg Body Mass Index (BMI) 28.3 Intake & Output: Intake and Output for Last 24 Hours 02/06/21 02/07/21 02/08/21 23:59 23:59 23:59 Intake Total 2919.00 / 2919.00 1471.25 / 1471.25 50 / 50 Output Total 3125 / 3875 4300 / 4300 Balance -206.00 / -956.00 -2828.75 / -2828.75 50 / 50 Lab / Micro Data Attestation: I reviewed the patient's lab results. Result Diagrams: 02/08/21 06:05 02/08/21 06:05 Labs: Laboratory Results - last 24 hr 02/07/21 03:15: Troponin I High Sens 19 02/07/21 03:15: B-Natriuretic Peptide 30.8 02/07/21 12:18: POC Glucose 96 02/07/21 17:09: POC Glucose 80 02/07/21 18:05: WBC 19.8 H, RBC 4.21 L, Hgb 14.0, Hct 40.3, MCV 95.7 H, MCH 33.3 H, MCHC 34.7, RDW Std Deviation 43.3, RDW Coeff of Blanca 12.5, Plt Count 374, MPV 10.2 02/08/21 00:36: POC Glucose 80 Micro: Microbiology 02/07/21 18:00 Stool Stool Occult Blood (MATILDA) - Final Occult Blood Positive 02/05/21 09:31 Sputum, Induced/Lukens Gram Stain - Final 02/05/21 09:31 Sputum, Induced/Lukens Respiratory Culture - Final Staphylococcus aureus 02/01/21 11:25 Blood Culture (Wb) - Central Line Blood Culture - Final No growth in 5 days. 02/01/21 11:45 Blood Culture (Wb) - Left Wrist Blood Culture - Final No growth in 5 days. 02/01/21 11:30 Sputum, Induced/Lukens Gram Stain - Final 02/01/21 11:30 Sputum, Induced/Lukens Respiratory Culture - Final Staphylococcus aureus 01/27/21 18:30 Blood Culture (Wb) - Anticubital Left Blood Culture - Final No growth in 5 days. 01/27/21 18:33 Blood Culture (Wb) - Central Line Blood Culture - Final No growth in 5 days. 01/30/21 13:20 Stool C. difficile DNA Amplification - Final 01/28/21 08:20 Sputum, Induced/Lukens Gram Stain - Final 01/28/21 08:20 Sputum, Induced/Lukens Respiratory Culture - Final Mixed normal respiratory eulalia. No Streptococcus pneumoniae, beta-hemolytic Streptococcus or Staphylococcus aureus isolated. 01/27/21 21:40 Urine Catheter - Catheter Urine Culture - Final Culture exhibits no growth. 01/27/21 19:30 Mucosa - Nose Respiratory Panel (PCR) - Final 01/27/21 19:25 Urine Catheter - Catheter Legionella Antigen - Final 01/27/21 19:25 Urine Catheter - Catheter Streptococcus pneumoniae Antigen (M - Final Radiography Diagnostic Testing: Radiology Impression Chest X-Ray 02/07/21 05:48 IMPRESSION: Increased bilateral pulmonary infiltrates. New right pleural effusion. Electronically Signed: Serjio Guzman MD at 6:38 EDT Tel , Service support , Echocardiogram 02/07/21 06:52 Interpretation Summary Normal LV size. Left ventricular systolic function is normal. The estimated ejection fraction is 60 %. No regional wall motion abnormalities noted. Contrast injection was performed. The study was technically limited. The study was technically difficult. Ordering Physician: Gualberto Camacho Referring Physician: Doroteo Camacho Performed By: Isidoro Kingsley RCS Physical Exam Const alert Constitutional Narrative: Tolerating Airvo currently. General Appearance: cooperative Nutritional Appearance: obese HEENT normocephalic and head/scalp atraumatic Eyes PERRL, EOMs intact bilaterally and conjunctivae normal Neck supple General: trachea midline Chest inspection of chest normal Resp Effort and Inspection: tachypneic Auscultation: diminished lung sounds; Negative for rales, rhonchi or wheezes Cardio regular rate and regular rhythm GI soft to palpation and non-tender Auscultation: hypoactive bowel sounds Extremity no clubbing, cyanosis or edema Skin no rashes or lesions noted Neuro moves all extremities and no focal motor deficits Psych Mood & Affect: anxious Charges/Coding Visit Charges Inpatient E&M: 84716 Subs Hosp L3
[2021-02-08] MEDS: Menthol/Lanolin/Calamine/Znox 113 GM Tube 1 APPLIC TOPICAL ×2 (06:17→21:23)
[2021-02-08 06:18] LABS: Absolute Lymphocyte Count 1.91 X10^3/uL (0.83-4.51); Absolute Neutrophil Count 14.8 X10^3/uL (2.0-7.7); Basophil# 0.06 X10^3/uL; Basophil% 0.3 % (0-1); Eosinophil# 0.32 X10^3/uL; Eosinophils% 1.8 % (0-5); Hematocrit 38.1 % (40-54); Lymphocyte # 1.91 X10^3/ul (0.83-4.51); Lymphocyte % 10.7 % (19-41); Mean Corp Hgb Conc 34.1 g/dL (32-36); Mean Corpuscular Hgb 33.1 pg (27.0-32.0); Mean Corpuscular Volume 96.9 fL (80-94); Mean Platelet Vol. 9.9 fl (6.2-12.0); Monocyte# 0.65 X10^3/uL; Monocyte% 3.6 % (0-10); NRBC Flagged by Analyzer 0 % (0-5); Neutrophil # 14.75 X10^3/uL (2.7-7.7); Neutrophil % 82.8 % (47-70); POSITIVE MORPHOLOGY YES; Platelet Count 350 K/mm3 (150-450); RBC Distribution Width CV 12.6 % (11.6-14.6); RBC Distribution Width SD 44.3 fl (35.1-43.9); Red Blood Count 3.93 M/mm3 (4.6-6.2); White Blood Count 17.8 K/mm3 (4.4-11.0)
[2021-02-08 06:34] LABS: ALB/GLOB Ratio 0.6 RATIO (0.9-2.4); AST(SGOT) 26 U/L (15-37); Alanine Aminotransfer ALT/SGPT 39 U/L (16-61); Albumin, Serum 2.4 g/dL (3.2-5.0); Alkaline Phosphatase 84 U/L (45-117); Anion Gap 8 (5-15); BUN 24 mg/dL (7-18); BUN/Creat Ratio 34.8 RATIO (10-20); Calcium,Total 8.6 mg/dL (8.5-10.1); Chloride 102 mmol/L (98-107); Creatinine, Serum 0.69 mg/dL (0.70-1.30); EST Glomerular Filtration Rate 127 mL/min (>60); Est Glom Filt Rate - Afr Amer 154 mL/min (>60); Estimated Creatinine Clearance 127.84 ml/min; Globulin 3.7 g/dL (2.2-4.2); Glucose 79 mg/dL (74-106); Potassium 3.1 mmol/L (3.5-5.1); Protein, Total 6.1 g/dL (6.4-8.2); Sodium Level 141 mmol/L (136-145)
[2021-02-08 06:56] LABS: Differential Indicated SCAN CRITERIA MET
--- NOTE | 2021-02-08 08:30 | PCM.PN.SRG ---
Subjective Subjective Patient had a bloody bowel movement yesterday but this morning is having large amounts of liquid bowel movements with no blood Objective Data Objective Data Vital Signs: Vital Signs Temp Pulse Resp BP Pulse Ox 97.9 F 103 H 34 H 122/80 H 88 02/08/21 05:00 02/08/21 07:14 02/08/21 07:14 02/08/21 07:00 02/08/21 07:14 Oxygen Flow Rate (L/min) 60 Oxygen Delivery Method Airvo Weight: 196 lb 3.2 oz Body Mass Index (BMI) 28.3 Intake & Output: Intake and Output for Last 24 Hours 02/06/21 02/07/21 02/08/21 23:59 23:59 23:59 Intake Total 2919.00 / 2919.00 1471.25 / 1471.25 298.5 / 298.5 Output Total 3125 / 3875 4300 / 4800 1050 / 1050 Balance -206.00 / -956.00 -2828.75 / -3328.75 -751.5 / -751.5 Lab / Micro Data Result Diagrams: 02/08/21 06:05 02/08/21 06:05 Labs: Laboratory Results - last 24 hr 02/07/21 03:15: B-Natriuretic Peptide 30.8 02/07/21 12:18: POC Glucose 96 02/07/21 17:09: POC Glucose 80 02/07/21 18:05: WBC 19.8 H, RBC 4.21 L, Hgb 14.0, Hct 40.3, MCV 95.7 H, MCH 33.3 H, MCHC 34.7, RDW Std Deviation 43.3, RDW Coeff of Blanca 12.5, Plt Count 374, MPV 10.2 02/08/21 00:36: POC Glucose 80 02/08/21 06:05: WBC 17.8 H, RBC 3.93 L, Hgb 13.0, Hct 38.1 L, MCV 96.9 H, MCH 33.1 H, MCHC 34.1, RDW Std Deviation 44.3 H, RDW Coeff of Blanca 12.6, Plt Count 350, MPV 9.9, Immature Gran % (Auto) 0.800, Neut % (Auto) 82.8 H, Lymph % (Auto) 10.7 L, [place] % (Auto) 3.6, Eos % (Auto) 1.8, Baso % (Auto) 0.3, Absolute Neuts (auto) 14.8 H, Absolute Lymphs (auto) 1.91, Nucleated RBC % 0 02/08/21 06:05: Sodium 141, Potassium 3.1 L, Chloride 102, Carbon Dioxide 31.0, Anion Gap 8, BUN 24 H, Creatinine 0.69 L, Estim Creat Clear Calc 127.84, Est GFR (MDRD) Af Amer 154, Est GFR (MDRD) Non-Af 127, BUN/Creatinine Ratio 34.8 H, Glucose 79, Calcium 8.6, Total Bilirubin 0.80, AST 26, ALT 39, Alkaline Phosphatase 84, Total Protein 6.1 L, Albumin 2.4 L, Globulin 3.7, Albumin/Globulin Ratio 0.6 L Micro: Microbiology 02/07/21 18:00 Stool Stool Occult Blood (MATILDA) - Final Occult Blood Positive 02/05/21 09:31 Sputum, Induced/Lukens Gram Stain - Final 02/05/21 09:31 Sputum, Induced/Lukens Respiratory Culture - Final Staphylococcus aureus 02/01/21 11:25 Blood Culture (Wb) - Central Line Blood Culture - Final No growth in 5 days. 02/01/21 11:45 Blood Culture (Wb) - Left Wrist Blood Culture - Final No growth in 5 days. 02/01/21 11:30 Sputum, Induced/Lukens Gram Stain - Final 02/01/21 11:30 Sputum, Induced/Lukens Respiratory Culture - Final Staphylococcus aureus 01/27/21 18:30 Blood Culture (Wb) - Anticubital Left Blood Culture - Final No growth in 5 days. 01/27/21 18:33 Blood Culture (Wb) - Central Line Blood Culture - Final No growth in 5 days. 01/30/21 13:20 Stool C. difficile DNA Amplification - Final 01/28/21 08:20 Sputum, Induced/Lukens Gram Stain - Final 01/28/21 08:20 Sputum, Induced/Lukens Respiratory Culture - Final Mixed normal respiratory eulalia. No Streptococcus pneumoniae, beta-hemolytic Streptococcus or Staphylococcus aureus isolated. 01/27/21 21:40 Urine Catheter - Catheter Urine Culture - Final Culture exhibits no growth. 01/27/21 19:30 Mucosa - Nose Respiratory Panel (PCR) - Final 01/27/21 19:25 Urine Catheter - Catheter Legionella Antigen - Final 01/27/21 19:25 Urine Catheter - Catheter Streptococcus pneumoniae Antigen (M - Final Radiography Diagnostic Testing: Radiology Impression Echocardiogram 02/07/21 06:52 Interpretation Summary Normal LV size. Left ventricular systolic function is normal. The estimated ejection fraction is 60 %. No regional wall motion abnormalities noted. Contrast injection was performed. The study was technically limited. The study was technically difficult. Ordering Physician: Gualberto Camacho Referring Physician: Doroteo Camacho Performed By: Isidoro Kingsley RCS Physical Exam Const no apparent distress Cardio regular rate GI soft to palpation and non-tender Assessment & Plan Assessment/Plan (1) Perforated bowel: PLAN: Patient failed speech therapy evaluation yesterday. They will reevaluate today. If he passes he may start clear liquid diet and advance as tolerated. He had a bloody bowel movement yesterday but this morning is having liquid bowel movements with no blood and his hemoglobin is stable. Jesús Wood MD Pager: [facility] [address] [address], [address] [place] [address] Office:
[2021-02-08] MEDS: Furosemide 40 MG/4 ML Vial IV ×2 (10:35→18:23)
[2021-02-08] MEDS: Enoxaparin 30 MG/0.3 ML Syringe SC ×2 (10:35→21:09)
--- NOTE | 2021-02-08 10:56 | PCM.PN.HOSP ---
Subjective Subjective Maintaining oxygen sats on air Vo. He did have a bloody stool overnight and he also failed speech therapy yesterday, will continue to follow Objective Data Objective Data Vital Signs: Vital Signs Temp Pulse Resp BP Pulse Ox 97.9 F 103 H 34 H 122/80 H 88 02/08/21 05:00 02/08/21 07:14 02/08/21 07:14 02/08/21 07:00 02/08/21 07:14 Oxygen Flow Rate (L/min) 60 Oxygen Delivery Method Airvo Weight: 196 lb 3.2 oz Body Mass Index (BMI) 28.3 Intake & Output: Intake and Output for Last 24 Hours 02/07/21 02/08/21 02/09/21 03:59 03:59 03:59 Intake Total 2839.00 / 2839.00 1471.25 / 1471.25 248.5 / 248.5 Output Total 3550 / 3550 4050 / 4050 550 / 550 Balance -711.00 / -711.00 -2578.75 / -2578.75 -301.5 / -301.5 Lab / Micro Data Result Diagrams: 02/08/21 06:05 02/08/21 06:05 Labs: Laboratory Results - last 24 hr 02/07/21 03:15: B-Natriuretic Peptide 30.8 02/07/21 12:18: POC Glucose 96 02/07/21 17:09: POC Glucose 80 02/07/21 18:05: WBC 19.8 H, RBC 4.21 L, Hgb 14.0, Hct 40.3, MCV 95.7 H, MCH 33.3 H, MCHC 34.7, RDW Std Deviation 43.3, RDW Coeff of Blanca 12.5, Plt Count 374, MPV 10.2 02/08/21 00:36: POC Glucose 80 02/08/21 06:05: WBC 17.8 H, RBC 3.93 L, Hgb 13.0, Hct 38.1 L, MCV 96.9 H, MCH 33.1 H, MCHC 34.1, RDW Std Deviation 44.3 H, RDW Coeff of Blanca 12.6, Plt Count 350, MPV 9.9, Immature Gran % (Auto) 0.800, Neut % (Auto) 82.8 H, Lymph % (Auto) 10.7 L, [place] % (Auto) 3.6, Eos % (Auto) 1.8, Baso % (Auto) 0.3, Absolute Neuts (auto) 14.8 H, Absolute Lymphs (auto) 1.91, Nucleated RBC % 0 02/08/21 06:05: Sodium 141, Potassium 3.1 L, Chloride 102, Carbon Dioxide 31.0, Anion Gap 8, BUN 24 H, Creatinine 0.69 L, Estim Creat Clear Calc 127.84, Est GFR (MDRD) Af Amer 154, Est GFR (MDRD) Non-Af 127, BUN/Creatinine Ratio 34.8 H, Glucose 79, Calcium 8.6, Total Bilirubin 0.80, AST 26, ALT 39, Alkaline Phosphatase 84, Total Protein 6.1 L, Albumin 2.4 L, Globulin 3.7, Albumin/Globulin Ratio 0.6 L Micro: Microbiology 02/07/21 18:00 Stool Stool Occult Blood (MATILDA) - Final Occult Blood Positive 02/05/21 09:31 Sputum, Induced/Lukens Gram Stain - Final 02/05/21 09:31 Sputum, Induced/Lukens Respiratory Culture - Final Staphylococcus aureus 02/01/21 11:25 Blood Culture (Wb) - Central Line Blood Culture - Final No growth in 5 days. 02/01/21 11:45 Blood Culture (Wb) - Left Wrist Blood Culture - Final No growth in 5 days. 02/01/21 11:30 Sputum, Induced/Lukens Gram Stain - Final 02/01/21 11:30 Sputum, Induced/Lukens Respiratory Culture - Final Staphylococcus aureus 01/27/21 18:30 Blood Culture (Wb) - Anticubital Left Blood Culture - Final No growth in 5 days. 01/27/21 18:33 Blood Culture (Wb) - Central Line Blood Culture - Final No growth in 5 days. 01/30/21 13:20 Stool C. difficile DNA Amplification - Final 01/28/21 08:20 Sputum, Induced/Lukens Gram Stain - Final 01/28/21 08:20 Sputum, Induced/Lukens Respiratory Culture - Final Mixed normal respiratory eulalia. No Streptococcus pneumoniae, beta-hemolytic Streptococcus or Staphylococcus aureus isolated. 01/27/21 21:40 Urine Catheter - Catheter Urine Culture - Final Culture exhibits no growth. 01/27/21 19:30 Mucosa - Nose Respiratory Panel (PCR) - Final 01/27/21 19:25 Urine Catheter - Catheter Legionella Antigen - Final 01/27/21 19:25 Urine Catheter - Catheter Streptococcus pneumoniae Antigen (M - Final Physical Exam Const alert, oriented x3 and no apparent distress General Appearance: cooperative HEENT normocephalic and moist oral mucous membranes Eyes PERRL, EOMs intact bilaterally and conjunctivae normal Neck supple and no JVD Resp normal respiratory effort, no retractions and no use of accessory muscles Auscultation: diminished lung sounds; Negative for crackles, rales, rhonchi or wheezes Cardio regular rate, regular rhythm, S1 normal heart sound, S2 normal heart sound and no murmurs GI soft to palpation, non-tender and non-distended; Negative for hepatosplenomegaly Extremity no clubbing, cyanosis or edema Skin no rashes or lesions noted Neuro no focal motor deficits and no sensory deficits noted Psych Appearance: appropriate Mood & Affect: flat affect Assessment & Plan Assessment/Plan (1) Acute respiratory failure with hypoxia: PLAN: 1. Acute hypoxic respiratory failure ?Secondary to SARS-CoV-2 pneumonia. Patient admitted to the intensive care unit placed on ventilator. Patient was outside the window for remdesivir. Was started on Decadron. Did receive a dose of Tocilizumab -02/06/2021; weaned off the vent - 02/07/2021; patient was placed back on BiPAP following prolonged coughing episode complicated by desaturation.Patient was placed empirically on vancomycin after his cultures came back positive for staph final identification and sensitivities pending 02/08/2021: Continue with air Vo. 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 Severe sepsis ?Secondary to SARS-CoV-2 pneumonia with superimposed bacterial pneumonia (staph pneumonia) as well as perforated cecum. Patient did receive IV fluid resuscitation and subsequently started on broad-spectrum antibiotic therapy with Zosyn and vancomycin with consultation placed to ID 02/08/2021: Continue with IV antibiotics, sputum culture with MSSA 3. Perforated cecum with very dilated ascending and transverse colon ?Patient underwent exploratory laparotomy with extended right hemicolectomy on 02/04/[address] Wood -02/06/2021 postoperative day 2. Patient complains of some abdominal discomfort his surgical incision however remains clean dry and intact -02/07/2021. Patient has return of bowel function plan is for patient to be started on oral diet once he passes his bedside swallow eval 02/08/2021: Continue with IV Zosyn to cover both MSSA as well as his perforated cecum. Continue to evaluate with speech therapy, he did fail yesterday 4. Hyperglycemia ?Secondary to chronic steroid use Patient is currently on long-acting insulin in addition to sliding scale coverage 5. Essential hypertension ?Blood pressure on the low side patient antihypertensives never restarted 6. Dyslipidemia ?On statin therapy prior to admission 7. DVT prophylaxis ?[place] Charges/Coding Visit Charges Inpatient E&M: 87268 Subs Hosp L2
--- NOTE | 2021-02-08 11:17 | CASEMGMT ---
SW participated in ICU rounds. SW spoke w/pt and in room in regard to discharge planning and for support. We spoke about anticipated discharge plan. Pt would still like to return home if possible. SW did explain to pt and that if needed we can also send pt to a residential facility. SW explained will bring them a list of SNFs that take pt's insurance should it be needed. Pt nodded in understanding, states understanding. SW will continue to follow, let pt and know is available for support and will be following along with case management for discharge needs. CAROLYNN Pizarro
[2021-02-08] MEDS: 0.9% Saline Lock 10 ML Syringe IV ×2 (13:40→18:24)
--- NOTE | 2021-02-08 14:22 | CASEMGMT ---
Addendum entered by Shahrzad Mckeon 02/08/21 15:22: Covid test result faxed over, the test was from 01/19/21. CAROLYNN Pizarro Original Note: SW called [facility] and requested copy of positive Covid test, as this will be needed should pt need SNF placement. Koko from Medical records is to fax it over. CAROLYNN Pizarro
[2021-02-08 16:31] LABS: Bedside Glucose 104 mg/dL (70-110)
[2021-02-08 17:45] LABS: Bedside Glucose 107 mg/dL (70-110)
[2021-02-08] MEDS: Carvedilol 25 MG Tablet GT (21:09)
[2021-02-08] MEDS: CHLORHEXIDINE GLUC 2% CLOTH 1 EACH TOWELETTE TOPICAL (22:37)
[2021-02-09] VITALS (29 sets, daily range): BP systolic 98–133; BP diastolic 71–100; PULSE 85–121; RESP 12–44; TEMP 36.2–37.2; O2SAT 88–100
[2021-02-09 00:50] LABS: Bedside Glucose 122 mg/dL (70-110)
[2021-02-09] MEDS: Menthol/Lanolin/Calamine/Znox 113 GM Tube 1 APPLIC TOPICAL ×2 (05:31→21:13)
[2021-02-09 05:40] LABS: Bedside Glucose 127 mg/dL (70-110)
--- NOTE | 2021-02-09 06:49 | PN.CC_ITS ---
Assessment & Plan Assessment/Plan (1) Acute respiratory failure with hypoxia: (2) Pneumonia due to COVID-19 virus: PLAN: RECOMMENDATIONS: 1. Continue to wean FiO2 to maintain oxygen saturations at or above 90%. 2. Continue scheduled IV Lasix as tolerated by hemodynamics and renal function. 3. Speech therapy reevaluation today. 4. Continue antimicrobials as ordered. 5. Continue PPI therapy and Lovenox. 6. Additional electrolyte repletion. IMPRESSIONS: 1. Acute hypoxemic respiratory failure secondary to COVID-19 pneumonia The patient presented to the hospital with progressive Covid symptoms after having been initially diagnosed at the end of December. He was therefore outside of the window for remdesivir. CTA chest showed no evidence for pulmonary embolism. The patient was emergently intubated in the emergency department. The patient has completed his treatment courses for his Covid. He remains on antimicrobials for the MSSA isolated from his sputum. The patient improved from a respiratory perspective and was able to be extubated on February 06. However, approximately 12 hours after extubation, the patient developed a significant coughing episode, which led to respiratory decompensation and the need to initiate BiPAP support. He has since been weaned to heated high flow oxygen, which will be continued as tolerated. The patient is up from a volume perspective and will therefore be continued on twice daily IV Lasix. 2. Bowel perforation, now POD #5 s/p exploratory laparotomy with right hemicolectomy Continue local wound care and dietary advancement per general surgery r ecommendations. 3. Acute kidney injury Resolved. Likely prerenal in etiology. The patient did initially respond to fluid resuscitation. However, supplemental IV fluids have been discontinued at this time. Creatinine has subsequently normalized. We will continue to monitor urine output. Continue to diurese intermittently to attempt to euvolemia. 4. Obesity/hypertension/hyperlipidemia Complicates care, management, recovery and prognosis. Continue home medications as indicated. This note was generated with [employer] dictation software. It may contain incorrect words, spelling, and punctuation that were not noted in checking the note before signing. Subjective Subjective The patient was seen and examined at the bedside this morning. Events from the last 24 hours have been reviewed. The patient did have 2 episodes of nonbloody diarrhea per nursing report. He remains on Airvo heated high flow with an FiO2 requirement of 60% and flow rate of 60 L/min. He is currently documented to be overall net +4.5 L for the hospitalization. The patient was reevaluated by speech therapy yesterday who felt that the patient was at increased risk for aspiration with p.o. intake. The patient remains on antimicrobials, twice daily PPI therapy, prophylactic Lovenox and twice daily IV Lasix. Objective Data Objective Data The patient's most recent lab work, culture data and imaging studies have all been personally reviewed. Sputum culture dated February 01 was positive for MSSA. Vital Signs: Vital Signs Temp Pulse Resp BP Pulse Ox 99 F 91 28 H 117/84 H 93 02/09/21 04:00 02/09/21 06:00 02/09/21 06:00 02/09/21 06:00 02/09/21 06:00 Oxygen Flow Rate (L/min) 60 Oxygen Delivery Method Airvo Weight: 90.31 kg Body Mass Index (BMI) 28.3 Intake & Output: Intake and Output for Last 24 Hours 02/07/21 02/08/21 02/09/21 23:59 23:59 23:59 Intake Total 1471.25 / 1471.25 1724.17 / 1724.17 50 / 50 Output Total 4300 / 4800 2975 / 3060 235 / 235 Balance -2828.75 / -3328.75 -1250.83 / -1335.83 -185 / -185 Lab / Micro Data Attestation: I reviewed the patient's lab results. Result Diagrams: 02/09/21 03:00 02/09/21 03:00 Labs: Laboratory Results - last 24 hr 02/08/21 06:05: WBC 17.8 H, RBC 3.93 L, Hgb 13.0, Hct 38.1 L, MCV 96.9 H, MCH 33.1 H, MCHC 34.1, RDW Std Deviation 44.3 H, RDW Coeff of Blanca 12.6, Plt Count 350, MPV 9.9, Immature Gran % (Auto) 0.800, Neut % (Auto) 82.8 H, Lymph % (Auto) 10.7 L, [place] % (Auto) 3.6, Eos % (Auto) 1.8, Baso % (Auto) 0.3, Absolute Neuts (auto) 14.8 H, Absolute Lymphs (auto) 1.91, Nucleated RBC % 0 02/08/21 12:30: POC Glucose 104 02/08/21 17:39: POC Glucose 107 02/08/21 23:13: POC Glucose 122 H 02/09/21 05:27: POC Glucose 127 H Micro: Microbiology 02/07/21 18:00 Stool Stool Occult Blood (MATILDA) - Final Occult Blood Positive 02/05/21 09:31 Sputum, Induced/Lukens Gram Stain - Final 02/05/21 09:31 Sputum, Induced/Lukens Respiratory Culture - Final Staphylococcus aureus 02/01/21 11:25 Blood Culture (Wb) - Central Line Blood Culture - Final No growth in 5 days. 02/01/21 11:45 Blood Culture (Wb) - Left Wrist Blood Culture - Final No growth in 5 days. 02/01/21 11:30 Sputum, Induced/Lukens Gram Stain - Final 02/01/21 11:30 Sputum, Induced/Lukens Respiratory Culture - Final Staphylococcus aureus 01/27/21 18:30 Blood Culture (Wb) - Anticubital Left Blood Culture - Final No growth in 5 days. 01/27/21 18:33 Blood Culture (Wb) - Central Line Blood Culture - Final No growth in 5 days. 01/30/21 13:20 Stool C. difficile DNA Amplification - Final 01/28/21 08:20 Sputum, Induced/Lukens Gram Stain - Final 01/28/21 08:20 Sputum, Induced/Lukens Respiratory Culture - Final Mixed normal respiratory eulalia. No Streptococcus pneumoniae, beta-hemolytic Streptococcus or Staphylococcus aureus isolated. 01/27/21 21:40 Urine Catheter - Catheter Urine Culture - Final Culture exhibits no growth. 01/27/21 19:30 Mucosa - Nose Respiratory Panel (PCR) - Final 01/27/21 19:25 Urine Catheter - Catheter Legionella Antigen - Final 01/27/21 19:25 Urine Catheter - Catheter Streptococcus pneumoniae Antigen (M - Final Physical Exam Const alert Constitutional Narrative: Tolerating Airvo currently. Sitting upright in bed. General Appearance: cooperative Nutritional Appearance: obese HEENT normocephalic and head/scalp atraumatic Eyes PERRL, EOMs intact bilaterally and conjunctivae normal Neck supple General: trachea midline and CVC in place Chest inspection of chest normal Resp Auscultation: rales and diminished lung sounds; Negative for rhonchi or wheezes Cardio regular rate and regular rhythm GI soft to palpation and non-tender Auscultation: hypoactive bowel sounds Extremity no clubbing, cyanosis or edema Skin no rashes or lesions noted Neuro moves all extremities and no focal motor deficits Psych cooperative Charges/Coding Visit Charges Inpatient E&M: 43765 [facility] Hosp L3
[2021-02-09 06:57] LABS: Absolute Lymphocyte Count 1.71 X10^3/uL (0.83-4.51); Absolute Neutrophil Count 14.9 X10^3/uL (2.0-7.7); Basophil# 0.04 X10^3/uL; Basophil% 0.2 % (0-1); Eosinophil# 0.19 X10^3/uL; Eosinophils% 1.1 % (0-5); Hematocrit 34.4 % (40-54); Hemoglobin 11.6 g/dL (13.0-16.5); Lymphocyte # 1.71 X10^3/ul (0.83-4.51); Lymphocyte % 9.7 % (19-41); Mean Corp Hgb Conc 33.7 g/dL (32-36); Mean Corpuscular Hgb 33.5 pg (27.0-32.0); Mean Corpuscular Volume 99.4 fL (80-94); Mean Platelet Vol. 10.5 fl (6.2-12.0); Monocyte% 3.4 % (0-10); NRBC Flagged by Analyzer 0 % (0-5); Neutrophil % 84.9 % (47-70); POSITIVE MORPHOLOGY YES; Platelet Count 338 K/mm3 (150-450); RBC Distribution Width CV 12.8 % (11.6-14.6); RBC Distribution Width SD 45.5 fl (35.1-43.9); Red Blood Count 3.46 M/mm3 (4.6-6.2); White Blood Count 17.6 K/mm3 (4.4-11.0)
[2021-02-09 07:07] LABS: Differential Indicated SCAN CRITERIA MET
[2021-02-09 07:08] LABS: Anion Gap 6 (5-15); BUN 24 mg/dL (7-18); BUN/Creat Ratio 36.5 RATIO (10-20); Calcium,Total 8.7 mg/dL (8.5-10.1); Chloride 106 mmol/L (98-107); Creatinine, Serum 0.66 mg/dL (0.70-1.30); EST Glomerular Filtration Rate 134 mL/min (>60); Est Glom Filt Rate - Afr Amer 162 mL/min (>60); Estimated Creatinine Clearance 133.65 ml/min; Glucose 131 mg/dL (74-106); Potassium 3.4 mmol/L (3.5-5.1); Sodium Level 141 mmol/L (136-145)
--- NOTE | 2021-02-09 09:14 | PCM.PN.HOSP ---
Subjective Subjective Per nursing, had some episodes of delirium overnight, this morning he seems appropriate and is asking for ice chips. Discussed with him that he failed his swallow study, he states that she told him that he could have ice chips and moderate amounts. In review of the speech therapy notes, he did fail speech therapy trial yesterday Objective Data Objective Data Vital Signs: Vital Signs Temp Pulse Resp BP Pulse Ox 99 F 95 25 H 123/80 H 91 02/09/21 04:00 02/09/21 07:28 02/09/21 07:28 02/09/21 07:00 02/09/21 07:28 Oxygen Flow Rate (L/min) 60 Oxygen Delivery Method Airvo Weight: 199 lb 1.6 oz Body Mass Index (BMI) 28.3 Intake & Output: Intake and Output for Last 24 Hours 02/08/21 02/09/21 02/10/21 03:59 03:59 03:59 Intake Total 1471.25 / 1471.25 1724.17 / 1724.17 Output Total 4050 / 4050 2560 / 2560 150 / 150 Balance -2578.75 / -2578.75 -835.83 / -835.83 -150 / -150 Lab / Micro Data Result Diagrams: 02/09/21 03:00 02/09/21 03:00 Labs: Laboratory Results - last 24 hr 02/08/21 12:30: POC Glucose 104 02/08/21 17:39: POC Glucose 107 02/08/21 23:13: POC Glucose 122 H 02/09/21 03:00: WBC 17.6 H, RBC 3.46 L, Hgb 11.6 L, Hct 34.4 L, MCV 99.4 H, MCH 33.5 H, MCHC 33.7, RDW Std Deviation 45.5 H, RDW Coeff of Blanca 12.8, Plt Count 338, MPV 10.5, Immature Gran % (Auto) 0.700, Neut % (Auto) 84.9 H, Lymph % (Auto) 9.7 L, [place] % (Auto) 3.4, Eos % (Auto) 1.1, Baso % (Auto) 0.2, Absolute Neuts (auto) 14.9 H, Absolute Lymphs (auto) 1.71, Nucleated RBC % 0 02/09/21 03:00: Sodium 141, Potassium 3.4 L, Chloride 106, Carbon Dioxide 29.0, Anion Gap 6, BUN 24 H, Creatinine 0.66 L, Estim Creat Clear Calc 133.65, Est GFR (MDRD) Af Amer 162, Est GFR (MDRD) Non-Af 134, BUN/Creatinine Ratio 36.5 H, Glucose 131 H, Calcium 8.7 02/09/21 05:27: POC Glucose 127 H Micro: Microbiology 02/07/21 18:00 Stool Stool Occult Blood (MATILDA) - Final Occult Blood Positive 02/05/21 09:31 Sputum, Induced/Lukens Gram Stain - Final 02/05/21 09:31 Sputum, Induced/Lukens Respiratory Culture - Final Staphylococcus aureus 02/01/21 11:25 Blood Culture (Wb) - Central Line Blood Culture - Final No growth in 5 days. 02/01/21 11:45 Blood Culture (Wb) - Left Wrist Blood Culture - Final No growth in 5 days. 02/01/21 11:30 Sputum, Induced/Lukens Gram Stain - Final 02/01/21 11:30 Sputum, Induced/Lukens Respiratory Culture - Final Staphylococcus aureus 01/27/21 18:30 Blood Culture (Wb) - Anticubital Left Blood Culture - Final No growth in 5 days. 01/27/21 18:33 Blood Culture (Wb) - Central Line Blood Culture - Final No growth in 5 days. 01/30/21 13:20 Stool C. difficile DNA Amplification - Final 01/28/21 08:20 Sputum, Induced/Lukens Gram Stain - Final 01/28/21 08:20 Sputum, Induced/Lukens Respiratory Culture - Final Mixed normal respiratory eulalia. No Streptococcus pneumoniae, beta-hemolytic Streptococcus or Staphylococcus aureus isolated. 01/27/21 21:40 Urine Catheter - Catheter Urine Culture - Final Culture exhibits no growth. 01/27/21 19:30 Mucosa - Nose Respiratory Panel (PCR) - Final 01/27/21 19:25 Urine Catheter - Catheter Legionella Antigen - Final 01/27/21 19:25 Urine Catheter - Catheter Streptococcus pneumoniae Antigen (M - Final Physical Exam Const alert and no apparent distress General Appearance: cooperative HEENT normocephalic and moist oral mucous membranes Eyes PERRL, EOMs intact bilaterally and conjunctivae normal Neck supple and no JVD Resp normal respiratory effort, no retractions and no use of accessory muscles Auscultation: crackles and diminished lung sounds; Negative for rales, rhonchi or wheezes Cardio regular rate, regular rhythm, S1 normal heart sound, S2 normal heart sound and no murmurs GI soft to palpation, non-tender and non-distended; Negative for hepatosplenomegaly Extremity no clubbing, cyanosis or edema Skin no rashes or lesions noted Neuro no focal motor deficits and no sensory deficits noted Psych Appearance: appropriate Mood & Affect: flat affect Assessment & Plan Assessment/Plan (1) Acute respiratory failure with hypoxia: PLAN: 1. Acute hypoxic respiratory failure ?Secondary to SARS-CoV-2 pneumonia. Patient admitted to the intensive care unit placed on ventilator. Patient was outside the window for remdesivir. Was started on Decadron. Did receive a dose of Tocilizumab -02/06/2021; weaned off the vent - 02/07/2021; patient was placed back on BiPAP following prolonged coughing episode complicated by desaturation.Patient was placed empirically on vancomycin after his cultures came back positive for staph final identification and sensitivities pending 02/08/2021: Continue with air Vo. Appreciate infectious disease and county program technician assistance 02/09/2021: Stable continue with air Vo, Will continue with Lasix as needed 2. Severe sepsis ?Secondary to SARS-CoV-2 pneumonia with superimposed bacterial pneumonia (staph pneumonia) as well as perforated cecum. Patient did receive IV fluid resuscitation and subsequently started on broad-spectrum antibiotic therapy with Zosyn and vancomycin with consultation placed to ID 02/08/2021: Continue with IV antibiotics, sputum culture with MSSA 3. Perforated cecum with very dilated ascending and transverse colon ?Patient underwent exploratory laparotomy with extended right hemicolectomy on 02/04/[address] Wood -02/06/2021 postoperative day 2. Patient complains of some abdominal discomfort his surgical incision however remains clean dry and intact -02/07/2021. Patient has return of bowel function plan is for patient to be started on oral diet once he passes his bedside swallow eval 02/08/2021: Continue with IV Zosyn to cover both MSSA as well as his perforated cecum. Continue to evaluate with speech therapy, he did fail yesterday 4. Hyperglycemia ?Secondary to chronic steroid use Patient is currently on long-acting insulin in addition to sliding scale coverage 5. Essential hypertension ?Blood pressure on the low side patient antihypertensives never restarted 6. Dyslipidemia ?On statin therapy prior to admission DVT: Mikal Charges/Coding Visit Charges Inpatient E&M: 09369 [facility] Hosp L2
--- NOTE | 2021-02-09 09:30 | CASEMGMT ---
SW participated in ICU rounds this morning, present. SW spoke w/pt and after rounds. As per nursing, pt very forgetful this morning. SW provided list to of prison facilities in pt's insurance network, in preferred geographic area, complete with quality and resource use data. states they would prefer TCU should it be needed. The preference would still be home if pt is able. SW called TCU, put pt's name on the list should rehab in a prison facility be needed. SW/CM will continue to follow for discharge needs. CAROLYNN Pizarro
[2021-02-09] MEDS: Carvedilol 25 MG Tablet GT ×2 (10:23→21:11)
[2021-02-09] MEDS: Enoxaparin 30 MG/0.3 ML Syringe SC ×2 (10:24→21:09)
[2021-02-09] MEDS: Furosemide 40 MG/4 ML Vial IV ×2 (10:24→17:41)
[2021-02-09] MEDS: Ascorbic Acid 500 MG Tablet 1000 MG GT (10:26)
--- NOTE | 2021-02-09 10:44 | PN.SURG_ITS ---
Subjective Subjective Patient had no issues over the night. He is still having liquid bowel movement. Objective Data Objective Data Vital Signs: Vital Signs Temp Pulse Resp BP Pulse Ox 99 F 95 25 H 123/80 H 91 02/09/21 04:00 02/09/21 07:28 02/09/21 07:28 02/09/21 07:00 02/09/21 07:28 Oxygen Flow Rate (L/min) 60 Oxygen Delivery Method Airvo Weight: 199 lb 1.6 oz Body Mass Index (BMI) 28.3 Intake & Output: Intake and Output for Last 24 Hours 02/07/21 02/08/21 02/09/21 23:59 23:59 23:59 Intake Total 1471.25 / 1471.25 1724.17 / 1724.17 100 / 100 Output Total 4300 / 4800 2975 / 3060 235 / 235 Balance -2828.75 / -3328.75 -1250.83 / -1335.83 -135 / -135 Lab / Micro Data Result Diagrams: 02/09/21 03:00 02/09/21 03:00 Labs: Laboratory Results - last 24 hr 02/08/21 12:30: POC Glucose 104 02/08/21 17:39: POC Glucose 107 02/08/21 23:13: POC Glucose 122 H 02/09/21 03:00: WBC 17.6 H, RBC 3.46 L, Hgb 11.6 L, Hct 34.4 L, MCV 99.4 H, MCH 33.5 H, MCHC 33.7, RDW Std Deviation 45.5 H, RDW Coeff of Blanca 12.8, Plt Count 338, MPV 10.5, Immature Gran % (Auto) 0.700, Neut % (Auto) 84.9 H, Lymph % (Auto) 9.7 L, [place] % (Auto) 3.4, Eos % (Auto) 1.1, Baso % (Auto) 0.2, Absolute Neuts (auto) 14.9 H, Absolute Lymphs (auto) 1.71, Nucleated RBC % 0 02/09/21 03:00: Sodium 141, Potassium 3.4 L, Chloride 106, Carbon Dioxide 29.0, Anion Gap 6, BUN 24 H, Creatinine 0.66 L, Estim Creat Clear Calc 133.65, Est GFR (MDRD) Af Amer 162, Est GFR (MDRD) Non-Af 134, BUN/Creatinine Ratio 36.5 H, Glucose 131 H, Calcium 8.7 02/09/21 05:27: POC Glucose 127 H Micro: Microbiology 02/07/21 18:00 Stool Stool Occult Blood (MATILDA) - Final Occult Blood Positive 02/05/21 09:31 Sputum, Induced/Lukens Gram Stain - Final 02/05/21 09:31 Sputum, Induced/Lukens Respiratory Culture - Final Staphylococcus aureus 02/01/21 11:25 Blood Culture (Wb) - Central Line Blood Culture - Final No growth in 5 days. 02/01/21 11:45 Blood Culture (Wb) - Left Wrist Blood Culture - Final No growth in 5 days. 02/01/21 11:30 Sputum, Induced/Lukens Gram Stain - Final 02/01/21 11:30 Sputum, Induced/Lukens Respiratory Culture - Final Staphylococcus aureus 01/27/21 18:30 Blood Culture (Wb) - Anticubital Left Blood Culture - Final No growth in 5 days. 01/27/21 18:33 Blood Culture (Wb) - Central Line Blood Culture - Final No growth in 5 days. 01/30/21 13:20 Stool C. difficile DNA Amplification - Final 01/28/21 08:20 Sputum, Induced/Lukens Gram Stain - Final 01/28/21 08:20 Sputum, Induced/Lukens Respiratory Culture - Final Mixed normal respiratory eulalia. No Streptococcus pneumoniae, beta-hemolytic Streptococcus or Staphylococcus aureus isolated. 01/27/21 21:40 Urine Catheter - Catheter Urine Culture - Final Culture exhibits no growth. 01/27/21 19:30 Mucosa - Nose Respiratory Panel (PCR) - Final 01/27/21 19:25 Urine Catheter - Catheter Legionella Antigen - Final 01/27/21 19:25 Urine Catheter - Catheter Streptococcus pneumoniae Antigen (M - Final Physical Exam Const no apparent distress Cardio regular rate GI soft to palpation and non-tender Assessment & Plan Assessment/Plan (1) Perforated bowel: PLAN: Patient is having normal bowel movements with no blood. His abdomen is soft and nondistended. If the patient passes speech therapy he may start a clear liquid diet and advance as tolerated. Dr. Izaguirre will be rounding for me over the weekend. Jesús Wood MD Pager: [facility] [address] [place] [address], [address] [place] [address] Office:
[2021-02-09] MEDS: 0.9% Saline Lock 10 ML Syringe IV ×3 (11:01→17:55)
[2021-02-09] MEDS: Insulin Lispro 100 UNIT/ML INSULN.PEN SC ×3 (12:13→21:34)
[2021-02-09 12:16] LABS: Bedside Glucose 248 mg/dL (70-110)
--- NOTE | 2021-02-09 15:16 | PCM.PN.ID ---
Physical Exam Narrative Breathing better, no fever Const no apparent distress Resp clear to auscultation bilaterally Auscultation: diminished lung sounds Cardio regular rate and regular rhythm GI normal to inspection, nondistended, normoactive bowel sounds Skin no rashes or lesions noted ID ID: Route of nutrition/ use of supplements: [] Nutritional Intake: [] IV Site: [] Colon Catheter: [] Assessment & Plan Assessment/Plan (1) Pneumonia due to COVID-19 virus: PLAN: Sx started around 01/15. Isolate for 20 days from that point. Unvaccinated. Encouraged vaccine once recovered. Cxs neg. Wbc remains elevated but improved. UAg neg. CT neg for PE. Given toci x1 on 01/27. Completed dex. Sputum with mssa. Now extubated. Now with bowel perf, taken to OR 02/[address] Wood for extended R hemicolectomy. Possible side effect of tocilizumab, has been reported post marketing; d/w pharmacy, report sent. On zosyn. Plan on stopping 02/11/21 if cont to improve. Will follow (2) Acute respiratory failure with hypoxia: (3) Perforated bowel:
[2021-02-09] MEDS: fentaNYL 100 MCG/2 ML Ampul 25 MCG IV (16:40)
[2021-02-09] MEDS: CHLORHEXIDINE GLUC 2% CLOTH 1 EACH TOWELETTE TOPICAL (17:37)
[2021-02-09 18:41] LABS: Bedside Glucose 165 mg/dL (70-110)
[2021-02-09] MEDS: Zolpidem Tartrate 5 MG Tablet PO (20:18)
[2021-02-09 21:40] LABS: Bedside Glucose 213 mg/dL (70-110)
[2021-02-10] VITALS (23 sets, daily range): BP systolic 101–128; BP diastolic 73–90; PULSE 77–109; RESP 17–44; TEMP 36.3–37.2; O2SAT 91–98
--- NOTE | 2021-02-10 01:39 | NURSING ---
0130: Patient took off bipap and refusing to put it back on for night time. States he knows what he is doing but also agrees he has been intermittently confused. Pt satting 65%. Pt placed back on 8L nc with sat at 95%. Pt agrees to try bipap again in a few hours. RT made aware.
--- NOTE | 2021-02-10 02:13 | CPS ---
Pt refuses PAP therapy at this time. Pt states to understand dangers of refusing PAP
[2021-02-10] MEDS: Menthol/Lanolin/Calamine/Znox 113 GM Tube 1 APPLIC TOPICAL ×3 (05:24→21:50)
[2021-02-10] MEDS: Insulin Lispro 100 UNIT/ML INSULN.PEN SC ×4 (06:11→22:12)
[2021-02-10 06:16] LABS: Bedside Glucose 161 mg/dL (70-110)
--- NOTE | 2021-02-10 06:52 | PCM.PN.INT ---
Assessment & Plan Assessment/Plan (1) Acute respiratory failure with hypoxia: (2) Pneumonia due to COVID-19 virus: PLAN: RECOMMENDATIONS: 1. Continue to wean supplemental oxygen to maintain saturations at or above 90%. 2. Continue scheduled IV Lasix as tolerated by hemodynamics and renal function. 3. Dietary advancement as tolerated. 4. Continue antimicrobials as ordered. 5. Continue PPI therapy and Lovenox. 6. Potassium repletion as ordered. 7. The patient is medically stable for transfer out of the intensive care unit. IMPRESSIONS: 1. Acute hypoxemic respiratory failure secondary to COVID-19 pneumonia The patient presented to the hospital with progressive Covid symptoms after having been initially diagnosed at the end of December. He was therefore outside of the window for remdesivir. CTA chest showed no evidence for pulmonary embolism. The patient was emergently intubated in the emergency department. The patient has completed his treatment courses for his Covid. He remains on antimicrobials for the MSSA isolated from his sputum. The patient improved from a respiratory perspective and was able to be extubated on February 06. The patient is up from a volume perspective and will therefore be continued on twice daily IV Lasix. Continue to wean supplemental oxygen to maintain saturations at or above 90%. Encourage incentive spirometer use and mobilize patient as tolerated. 2. Bowel perforation, now POD #6 s/p exploratory laparotomy with right hemicolectomy Continue local wound care and dietary advancement per general surgery recommendations. 3. Acute kidney injury Resolved. Likely prerenal in etiology. The patient did initially respond to fluid resuscitation. However, supplemental IV fluids have been discontinued at this time. Creatinine has subsequently normalized. We will continue to monitor urine output. Continue to diurese intermittently to attempt to euvolemia. 4. Hypokalemia Additional electrolyte repletion as ordered. Continue to monitor levels daily. 5. Obesity/hypertension/hyperlipidemia Complicates care, management, recovery and prognosis. Continue home medications as indicated. This note was generated with [employer] dictation software. It may contain incorrect words, spelling, and punctuation that were not noted in checking the note before signing. Subjective Subjective The patient was seen and examined at the bedside this morning. Events from the last 24 hours have been reviewed. Per nursing report, the patient only wore his BiPAP for approximately 1.5 hours last night. He is a bit confused. However, he is currently maintaining appropriate oxygen saturations on 8 L/min via nasal cannula. He is currently documented to be overall net +3.1 L for the hospitalization. The patient did pass his swallow evaluation and was placed on a clear liquid diet. The patient remains on antimicrobials, twice daily PPI therapy, prophylactic Lovenox and twice daily IV Lasix. Objective Data Objective Data The patient's most recent lab work, culture data and imaging studies have all been personally reviewed. Sputum culture dated February 01 was positive for MSSA. Vital Signs: Vital Signs Temp Pulse Resp BP Pulse Ox 99 F 102 H 30 H 108/84 H 92 02/10/21 04:00 02/10/21 06:00 02/10/21 06:00 02/10/21 06:00 02/10/21 06:00 Oxygen Flow Rate (L/min) 8 Oxygen Delivery Method Nasal Cannula Weight: 89.494 kg Body Mass Index (BMI) 28.3 Intake & Output: Intake and Output for Last 24 Hours 02/08/21 02/09/21 02/10/21 23:59 23:59 23:59 Intake Total 1724.17 / 1724.17 990 / 990 50 / 50 Output Total 2975 / 3060 1835 / 2585 750 / 750 Balance -1250.83 / -1335.83 -845 / -1595 -700 / -700 Lab / Micro Data Attestation: I reviewed the patient's lab results. Result Diagrams: 02/09/21 03:00 02/10/21 03:30 Labs: Laboratory Results - last 24 hr 02/09/21 03:00: WBC 17.6 H, RBC 3.46 L, Hgb 11.6 L, Hct 34.4 L, MCV 99.4 H, MCH 33.5 H, MCHC 33.7, RDW Std Deviation 45.5 H, RDW Coeff of Blanca 12.8, Plt Count 338, MPV 10.5, Immature Gran % (Auto) 0.700, Neut % (Auto) 84.9 H, Lymph % (Auto) 9.7 L, Baker % (Auto) 3.4, Eos % (Auto) 1.1, Baso % (Auto) 0.2, Absolute Neuts (auto) 14.9 H, Absolute Lymphs (auto) 1.71, Nucleated RBC % 0 02/09/21 03:00: Sodium 141, Potassium 3.4 L, Chloride 106, Carbon Dioxide 29.0, Anion Gap 6, BUN 24 H, Creatinine 0.66 L, Estim Creat Clear Calc 133.65, Est GFR (MDRD) Af Amer 162, Est GFR (MDRD) Non-Af 134, BUN/Creatinine Ratio 36.5 H, Glucose 131 H, Calcium 8.7 02/09/21 12:12: POC Glucose 248 H 02/09/21 17:40: POC Glucose 165 H 02/09/21 21:32: POC Glucose 213 H 02/10/21 06:10: POC Glucose 161 H Micro: Microbiology 02/07/21 18:00 Stool Stool Occult Blood (MATILDA) - Final Occult Blood Positive 02/05/21 09:31 Sputum, Induced/Lukens Gram Stain - Final 02/05/21 09:31 Sputum, Induced/Lukens Respiratory Culture - Final Staphylococcus aureus 02/01/21 11:25 Blood Culture (Wb) - Central Line Blood Culture - Final No growth in 5 days. 02/01/21 11:45 Blood Culture (Wb) - Left Wrist Blood Culture - Final No growth in 5 days. 02/01/21 11:30 Sputum, Induced/Lukens Gram Stain - Final 02/01/21 11:30 Sputum, Induced/Lukens Respiratory Culture - Final Staphylococcus aureus 01/27/21 18:30 Blood Culture (Wb) - Anticubital Left Blood Culture - Final No growth in 5 days. 01/27/21 18:33 Blood Culture (Wb) - Central Line Blood Culture - Final No growth in 5 days. 01/30/21 13:20 Stool C. difficile DNA Amplification - Final 01/28/21 08:20 Sputum, Induced/Lukens Gram Stain - Final 01/28/21 08:20 Sputum, Induced/Lukens Respiratory Culture - Final Mixed normal respiratory eulalia. No Streptococcus pneumoniae, beta-hemolytic Streptococcus or Staphylococcus aureus isolated. 01/27/21 21:40 Urine Catheter - Catheter Urine Culture - Final Culture exhibits no growth. 01/27/21 19:30 Mucosa - Nose Respiratory Panel (PCR) - Final 01/27/21 19:25 Urine Catheter - Catheter Legionella Antigen - Final 01/27/21 19:25 Urine Catheter - Catheter Streptococcus pneumoniae Antigen (M - Final Physical Exam Const alert Constitutional Narrative: Sitting upright in bed with nasal cannula oxygen in place. General Appearance: cooperative Nutritional Appearance: obese HEENT normocephalic and head/scalp atraumatic Eyes PERRL, EOMs intact bilaterally and conjunctivae normal Neck supple General: trachea midline and CVC in place Chest inspection of chest normal Resp Auscultation: rales and diminished lung sounds; Negative for rhonchi or wheezes Cardio regular rate and regular rhythm GI soft to palpation and non-tender Auscultation: hypoactive bowel sounds Extremity no clubbing, cyanosis or edema Skin no rashes or lesions noted Neuro moves all extremities and no focal motor deficits Psych cooperative Charges/Coding Visit Charges Inpatient E&M: 96939 Subs Hosp L3
[2021-02-10 07:18] LABS: Anion Gap 8 (5-15); BUN 23 mg/dL (7-18); BUN/Creat Ratio 25.4 RATIO (10-20); Calcium,Total 8.3 mg/dL (8.5-10.1); Chloride 104 mmol/L (98-107); EST Glomerular Filtration Rate 93 mL/min (>60); Est Glom Filt Rate - Afr Amer 112 mL/min (>60); Estimated Creatinine Clearance 98.01 ml/min; Glucose 253 mg/dL (74-106); Sodium Level 139 mmol/L (136-145)
--- NOTE | 2021-02-10 08:28 | PCM.PN.SRG ---
Subjective Subjective Patient's pain has been improving Positive flatus positive bowel movements Objective Data Objective Data Abdomen is soft no rebound guarding or peritoneal signs are identified Vital Signs: Vital Signs Temp Pulse Resp BP Pulse Ox 99 F 95 21 H 128/77 H 95 02/10/21 04:00 02/10/21 07:36 02/10/21 07:00 02/10/21 07:00 02/10/21 07:00 Oxygen Flow Rate (L/min) 8 Oxygen Delivery Method Nasal Cannula Weight: 197 lb 4.8 oz Body Mass Index (BMI) 28.3 Intake & Output: Intake and Output for Last 24 Hours 02/08/21 02/09/21 02/10/21 23:59 23:59 23:59 Intake Total 1724.17 / 1724.17 990 / 990 50 / 50 Output Total 2975 / 3060 1835 / 2585 750 / 750 Balance -1250.83 / -1335.83 -845 / -1595 -700 / -700 Lab / Micro Data Result Diagrams: 02/09/21 03:00 02/10/21 03:30 Labs: Laboratory Results - last 24 hr 02/09/21 12:12: POC Glucose 248 H 02/09/21 17:40: POC Glucose 165 H 02/09/21 21:32: POC Glucose 213 H 02/10/21 03:30: Sodium 139, Potassium 3.0 L, Chloride 104, Carbon Dioxide 27.0, Anion Gap 8, BUN 23 H, Creatinine 0.90, Estim Creat Clear Calc 98.01, Est GFR (MDRD) Af Amer 112, Est GFR (MDRD) Non-Af 93, BUN/Creatinine Ratio 25.4 H, Glucose 253 H, Calcium 8.3 L 02/10/21 06:10: POC Glucose 161 H Micro: Microbiology 02/07/21 18:00 Stool Stool Occult Blood (MATILDA) - Final Occult Blood Positive 02/05/21 09:31 Sputum, Induced/Lukens Gram Stain - Final 02/05/21 09:31 Sputum, Induced/Lukens Respiratory Culture - Final Staphylococcus aureus 02/01/21 11:25 Blood Culture (Wb) - Central Line Blood Culture - Final No growth in 5 days. 02/01/21 11:45 Blood Culture (Wb) - Left Wrist Blood Culture - Final No growth in 5 days. 02/01/21 11:30 Sputum, Induced/Lukens Gram Stain - Final 02/01/21 11:30 Sputum, Induced/Lukens Respiratory Culture - Final Staphylococcus aureus 01/27/21 18:30 Blood Culture (Wb) - Anticubital Left Blood Culture - Final No growth in 5 days. 01/27/21 18:33 Blood Culture (Wb) - Central Line Blood Culture - Final No growth in 5 days. 01/30/21 13:20 Stool C. difficile DNA Amplification - Final 01/28/21 08:20 Sputum, Induced/Lukens Gram Stain - Final 01/28/21 08:20 Sputum, Induced/Lukens Respiratory Culture - Final Mixed normal respiratory eulalia. No Streptococcus pneumoniae, beta-hemolytic Streptococcus or Staphylococcus aureus isolated. 01/27/21 21:40 Urine Catheter - Catheter Urine Culture - Final Culture exhibits no growth. 01/27/21 19:30 Mucosa - Nose Respiratory Panel (PCR) - Final 01/27/21 19:25 Urine Catheter - Catheter Legionella Antigen - Final 01/27/21 19:25 Urine Catheter - Catheter Streptococcus pneumoniae Antigen (M - Final Assessment & Plan Assessment/Plan (1) Perforated bowel: PLAN: Patient will be going to the floor today. Slow improvement.
[2021-02-10] MEDS: Furosemide 40 MG/4 ML Vial IV ×2 (09:19→19:46)
[2021-02-10] MEDS: Carvedilol 25 MG Tablet GT ×2 (09:19→21:50)
[2021-02-10] MEDS: Enoxaparin 30 MG/0.3 ML Syringe SC ×2 (09:19→21:50)
[2021-02-10] MEDS: CHLORHEXIDINE GLUC 2% CLOTH 1 EACH TOWELETTE TOPICAL (09:20)
[2021-02-10] MEDS: Ascorbic Acid 500 MG Tablet 1000 MG GT (09:20)
[2021-02-10] MEDS: 0.9% Saline Lock 10 ML Syringe IV ×2 (09:25→19:47)
[2021-02-10] MEDS: Potassium Chloride Oral Tablet 20 MEQ 40 MEQ PO (10:38)
[2021-02-10 10:56] LABS: Bedside Glucose 309 mg/dL (70-110)
[2021-02-10 13:20] LABS: Bedside Glucose 201 mg/dL (70-110)
--- NOTE | 2021-02-10 13:29 | PCM.PN.HOSP ---
Subjective Subjective No issues overnight, he did end up passing his swallow eval and is currently on a clear liquid diet. Objective Data Objective Data Vital Signs: Vital Signs Temp Pulse Resp BP Pulse Ox 97.5 F L 100 18 105/78 94 02/10/21 13:24 02/10/21 13:24 02/10/21 13:24 02/10/21 13:24 02/10/21 13:24 Oxygen Flow Rate (L/min) 6 Oxygen Delivery Method Nasal Cannula Weight: 197 lb 4.8 oz Body Mass Index (BMI) 28.3 Intake & Output: Intake and Output for Last 24 Hours 02/09/21 02/10/21 02/11/21 03:59 03:59 03:59 Intake Total 1724.17 / 1724.17 990 / 990 280 / 280 Output Total 2560 / 2560 2500 / 2500 250 / 250 Balance -835.83 / -835.83 -1510 / -1510 30 / 30 Lab / Micro Data Result Diagrams: 02/09/21 03:00 02/10/21 03:30 Labs: Laboratory Results - last 24 hr 02/09/21 17:40: POC Glucose 165 H 02/09/21 21:32: POC Glucose 213 H 02/10/21 03:30: Sodium 139, Potassium 3.0 L, Chloride 104, Carbon Dioxide 27.0, Anion Gap 8, BUN 23 H, Creatinine 0.90, Estim Creat Clear Calc 98.01, Est GFR (MDRD) Af Amer 112, Est GFR (MDRD) Non-Af 93, BUN/Creatinine Ratio 25.4 H, Glucose 253 H, Calcium 8.3 L 02/10/21 06:10: POC Glucose 161 H 02/10/21 10:48: POC Glucose 309 H 02/10/21 13:00: POC Glucose 201 H Micro: Microbiology 02/07/21 18:00 Stool Stool Occult Blood (MATILDA) - Final Occult Blood Positive 02/05/21 09:31 Sputum, Induced/Lukens Gram Stain - Final 02/05/21 09:31 Sputum, Induced/Lukens Respiratory Culture - Final Staphylococcus aureus 02/01/21 11:25 Blood Culture (Wb) - Central Line Blood Culture - Final No growth in 5 days. 02/01/21 11:45 Blood Culture (Wb) - Left Wrist Blood Culture - Final No growth in 5 days. 02/01/21 11:30 Sputum, Induced/Lukens Gram Stain - Final 02/01/21 11:30 Sputum, Induced/Lukens Respiratory Culture - Final Staphylococcus aureus 01/27/21 18:30 Blood Culture (Wb) - Anticubital Left Blood Culture - Final No growth in 5 days. 01/27/21 18:33 Blood Culture (Wb) - Central Line Blood Culture - Final No growth in 5 days. 01/30/21 13:20 Stool C. difficile DNA Amplification - Final 01/28/21 08:20 Sputum, Induced/Lukens Gram Stain - Final 01/28/21 08:20 Sputum, Induced/Lukens Respiratory Culture - Final Mixed normal respiratory eulalia. No Streptococcus pneumoniae, beta-hemolytic Streptococcus or Staphylococcus aureus isolated. 01/27/21 21:40 Urine Catheter - Catheter Urine Culture - Final Culture exhibits no growth. 01/27/21 19:30 Mucosa - Nose Respiratory Panel (PCR) - Final 01/27/21 19:25 Urine Catheter - Catheter Legionella Antigen - Final 01/27/21 19:25 Urine Catheter - Catheter Streptococcus pneumoniae Antigen (M - Final Physical Exam Const alert and no apparent distress General Appearance: cooperative HEENT normocephalic and moist oral mucous membranes Eyes PERRL, EOMs intact bilaterally and conjunctivae normal Neck supple and no JVD Resp normal respiratory effort, no retractions and no use of accessory muscles Auscultation: crackles and diminished lung sounds; Negative for rales, rhonchi or wheezes Cardio regular rate, regular rhythm, S1 normal heart sound, S2 normal heart sound and no murmurs GI soft to palpation, non-tender and non-distended; Negative for hepatosplenomegaly Extremity no clubbing, cyanosis or edema Skin no rashes or lesions noted Neuro no focal motor deficits and no sensory deficits noted Psych Appearance: appropriate Mood & Affect: flat affect Assessment & Plan Assessment/Plan (1) Acute respiratory failure with hypoxia: PLAN: 1. Acute hypoxic respiratory failure ?Secondary to SARS-CoV-2 pneumonia. Patient admitted to the intensive care unit placed on ventilator. Patient was outside the window for remdesivir. Was started on Decadron. Did receive a dose of Tocilizumab -02/06/2021; weaned off the vent - 02/07/2021; patient was placed back on BiPAP following prolonged coughing episode complicated by desaturation.Patient was placed empirically on vancomycin after his cultures came back positive for staph final identification and sensitivities pending 02/08/2021: Continue with air Vo. 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 Needs to wear BiPAP at night and this was discussed. Continue with Lasix twice daily 2. Severe sepsis ?Secondary to SARS-CoV-2 pneumonia with superimposed bacterial pneumonia (staph pneumonia) as well as perforated cecum. Patient did receive IV fluid resuscitation and subsequently started on broad-spectrum antibiotic therapy with Zosyn and vancomycin with consultation placed to ID 02/08/2021: Continue with IV antibiotics, sputum culture with MSSA 3. Perforated cecum with very dilated ascending and transverse colon ?Patient underwent exploratory laparotomy with extended right hemicolectomy on 02/04/[address] Wood -02/06/2021 postoperative day 2. Patient complains of some abdominal discomfort his surgical incision however remains clean dry and intact -02/07/2021. Patient has return of bowel function plan is for patient to be started on oral diet once he passes his bedside swallow eval 02/08/2021: Continue with IV Zosyn to cover both MSSA as well as his perforated cecum. Continue to evaluate with speech therapy, he did fail yesterday 02/10/2021: Was evaluated by speech therapy in the past, he is clear to take clear liquids. 4. Hyperglycemia ?Secondary to chronic steroid use Patient is currently on long-acting insulin in addition to sliding scale coverage 5. Essential hypertension ?Blood pressure on the low side patient antihypertensives never restarted 6. Dyslipidemia ?On statin therapy prior to admission DVT: Lovenox Charges/Coding Visit Charges Inpatient E&M: 35941 Subs Hosp L2
[2021-02-10] MEDS: Acetaminophen 650 MG/20 ML UDC GT (15:08)
[2021-02-10 16:40] LABS: Bedside Glucose 159 mg/dL (70-110)
[2021-02-10 22:21] LABS: Bedside Glucose 171 mg/dL (70-110)
[2021-02-11] VITALS (13 sets, daily range): BP systolic 105–132; BP diastolic 72–77; PULSE 84–112; RESP 18; TEMP 36.4–36.9; O2SAT 93–95
[2021-02-11] MEDS: Loperamide (Oral Liquid) 1 MG/7.5 ML ML 4 MG PO ×3 (01:08→21:14)
[2021-02-11 05:22] LABS: Absolute Lymphocyte Count 1.91 X10^3/uL (0.83-4.51); Absolute Neutrophil Count 20.1 X10^3/uL (2.0-7.7); Basophil# 0.09 X10^3/uL; Basophil% 0.4 % (0-1); Eosinophil# 0.08 X10^3/uL; Eosinophils% 0.3 % (0-5); Hematocrit 38.1 % (40-54); Hemoglobin 13.2 g/dL (13.0-16.5); Lymphocyte # 1.91 X10^3/ul (0.83-4.51); Lymphocyte % 8.1 % (19-41); Mean Corp Hgb Conc 34.6 g/dL (32-36); Mean Corpuscular Hgb 33.2 pg (27.0-32.0); Mean Platelet Vol. 9.8 fl (6.2-12.0); Monocyte# 1.18 X10^3/uL; NRBC Flagged by Analyzer 0 % (0-5); Neutrophil # 20.12 X10^3/uL (2.7-7.7); Neutrophil % 85.3 % (47-70); POSITIVE DIFFERENTIAL YES; Platelet Count 412 K/mm3 (150-450); RBC Distribution Width CV 12.7 % (11.6-14.6); RBC Distribution Width SD 44.3 fl (35.1-43.9); Red Blood Count 3.97 M/mm3 (4.6-6.2); White Blood Count 23.6 K/mm3 (4.4-11.0)
[2021-02-11 05:31] LABS: Differential Indicated SCAN CRITERIA MET
[2021-02-11 05:53] LABS: Anion Gap 10 (5-15); BUN 23 mg/dL (7-18); BUN/Creat Ratio 33.6 RATIO (10-20); Calcium,Total 8.5 mg/dL (8.5-10.1); Chloride 102 mmol/L (98-107); Creatinine, Serum 0.68 mg/dL (0.70-1.30); EST Glomerular Filtration Rate 128 mL/min (>60); Est Glom Filt Rate - Afr Amer 155 mL/min (>60); Estimated Creatinine Clearance 129.72 ml/min; Glucose 173 mg/dL (74-106); Potassium 3.5 mmol/L (3.5-5.1); Sodium Level 136 mmol/L (136-145)
[2021-02-11] MEDS: Menthol/Lanolin/Calamine/Znox 113 GM Tube 1 APPLIC TOPICAL ×3 (06:12→21:17)
[2021-02-11] MEDS: Insulin Lispro 100 UNIT/ML INSULN.PEN SC ×4 (06:20→21:38)
[2021-02-11] MEDS: Acetaminophen 325 MG Tablet 650 MG PO ×2 (06:22→21:14)
[2021-02-11 06:31] LABS: Bedside Glucose 175 mg/dL (70-110)
[2021-02-11 06:47] LABS: Differential Comment SCANNED
--- NOTE | 2021-02-11 07:20 | PCM.PN.INT ---
Assessment & Plan Assessment/Plan (1) Acute respiratory failure with hypoxia: (2) Pneumonia due to COVID-19 virus: PLAN: RECOMMENDATIONS: 1. Continue to wean supplemental oxygen to maintain saturations at or above 90%. 2. Continue scheduled IV Lasix as tolerated by hemodynamics and renal function. 3. Dietary advancement as tolerated. 4. Continue antimicrobials as ordered to complete a total of 7 days of therapy. 5. Continue PPI therapy and Lovenox. 6. Given improving oxygenation status, will sign off. Please call with any additional questions. IMPRESSIONS: 1. Acute hypoxemic respiratory failure secondary to COVID-19 pneumonia The patient presented to the hospital with progressive Covid symptoms after having been initially diagnosed at the end of December. He was therefore outside of the window for remdesivir. CTA chest showed no evidence for pulmonary embolism. The patient was emergently intubated in the emergency department. The patient has completed his treatment courses for his Covid. He remains on antimicrobials for the MSSA isolated from his sputum. The patient improved from a respiratory perspective and was able to be extubated on February 06. The patient is up from a volume perspective and will therefore be continued on twice daily IV Lasix. Continue to wean supplemental oxygen to maintain saturations at or above 90%. Encourage incentive spirometer use and mobilize patient as tolerated. 2. Bowel perforation, now POD #7 s/p exploratory laparotomy with right hemicolectomy Continue local wound care and dietary advancement per general surgery recommendations. 3. Acute kidney injury Resolved. Likely prerenal in etiology. The patient did initially respond to fluid resuscitation. However, supplemental IV fluids have been discontinued at this time. Creatinine has subsequently normalized. We will continue to monitor urine output. 4. Obesity/hypertension/hyperlipidemia Complicates care, management, recovery and prognosis. Continue home medications as indicated. This note was generated with [employer] dictation software. It may contain incorrect words, spelling, and punctuation that were not noted in checking the note before signing. Subjective Subjective The patient was seen and examined at the bedside this morning. Events from the last 24 hours have been reviewed. The patient is afebrile, hemodynamically stable and maintaining appropriate oxygen saturations on 8 L/min via nasal cannula. The patient is currently documented to be overall net +1.4 L for the hospital admission. He remains on antimicrobials, PPI therapy, prophylactic Lovenox and twice daily IV Lasix. Renal function remains stable. Objective Data Objective Data The patient's most recent lab work, culture data and imaging studies have all been personally reviewed. Sputum culture dated February 01 was positive for MSSA. Vital Signs: Vital Signs Temp Pulse Resp BP Pulse Ox 97.8 F 112 H 18 112/72 94 02/11/21 01:37 02/11/21 04:11 02/11/21 01:37 02/11/21 01:37 02/11/21 01:37 Oxygen Flow Rate (L/min) 8 Oxygen Delivery Method Nasal Cannula Weight: 85.4 kg Body Mass Index (BMI) 28.3 Intake & Output: Intake and Output for Last 24 Hours 02/09/21 02/10/21 02/11/21 23:59 23:59 23:59 Intake Total 990 / 990 507 / 507 315.75 / 315.75 Output Total 1835 / 2585 2250 / 2250 1075 / 1075 Balance -845 / -1595 -1743 / -1743 -759.25 / -759.25 Lab / Micro Data Attestation: I reviewed the patient's lab results. Result Diagrams: 02/11/21 05:03 02/11/21 05:03 Labs: Laboratory Results - last 24 hr 02/10/21 10:48: POC Glucose 309 H 02/10/21 13:00: POC Glucose 201 H 02/10/21 16:38: POC Glucose 159 H 02/10/21 22:10: POC Glucose 171 H 02/11/21 05:03: WBC 23.6 H, RBC 3.97 L, Hgb 13.2, Hct 38.1 L, MCV 96.0 H, MCH 33.2 H, MCHC 34.6, RDW Std Deviation 44.3 H, RDW Coeff of Blanca 12.7, Plt Count 412, MPV 9.8, Immature Gran % (Auto) 0.900, Neut % (Auto) 85.3 H, Lymph % (Auto) 8.1 L, [place]ble % (Auto) 5.0, Eos % (Auto) 0.3, Baso % (Auto) 0.4, Absolute Neuts (auto) 20.1 H, Absolute Lymphs (auto) 1.91, Nucleated RBC % 0, Differential Comment SCANNED 02/11/21 05:03: Sodium 136, Potassium 3.5, Chloride 102, Carbon Dioxide 24.0, Anion Gap 10, BUN 23 H, Creatinine 0.68 L, Estim Creat Clear Calc 129.72, Est GFR (MDRD) Af Amer 155, Est GFR (MDRD) Non-Af 128, BUN/Creatinine Ratio 33.6 H, Glucose 173 H, Calcium 8.5 02/11/21 06:19: POC Glucose 175 H Micro: Microbiology 02/07/21 18:00 Stool Stool Occult Blood (MATILDA) - Final Occult Blood Positive 02/05/21 09:31 Sputum, Induced/Lukens Gram Stain - Final 02/05/21 09:31 Sputum, Induced/Lukens Respiratory Culture - Final Staphylococcus aureus 02/01/21 11:25 Blood Culture (Wb) - Central Line Blood Culture - Final No growth in 5 days. 02/01/21 11:45 Blood Culture (Wb) - Left Wrist Blood Culture - Final No growth in 5 days. 02/01/21 11:30 Sputum, Induced/Lukens Gram Stain - Final 02/01/21 11:30 Sputum, Induced/Lukens Respiratory Culture - Final Staphylococcus aureus 01/27/21 18:30 Blood Culture (Wb) - Anticubital Left Blood Culture - Final No growth in 5 days. 01/27/21 18:33 Blood Culture (Wb) - Central Line Blood Culture - Final No growth in 5 days. 01/30/21 13:20 Stool C. difficile DNA Amplification - Final 01/28/21 08:20 Sputum, Induced/Lukens Gram Stain - Final 01/28/21 08:20 Sputum, Induced/Lukens Respiratory Culture - Final Mixed normal respiratory eulalia. No Streptococcus pneumoniae, beta-hemolytic Streptococcus or Staphylococcus aureus isolated. 01/27/21 21:40 Urine Catheter - Catheter Urine Culture - Final Culture exhibits no growth. 01/27/21 19:30 Mucosa - Nose Respiratory Panel (PCR) - Final 01/27/21 19:25 Urine Catheter - Catheter Legionella Antigen - Final 01/27/21 19:25 Urine Catheter - Catheter Streptococcus pneumoniae Antigen (M - Final Physical Exam Const alert Constitutional Narrative: Sitting upright in bed with nasal cannula oxygen in place. General Appearance: cooperative Nutritional Appearance: obese HEENT normocephalic and head/scalp atraumatic Eyes PERRL, EOMs intact bilaterally and conjunctivae normal Neck supple General: trachea midline and CVC in place Chest inspection of chest normal Resp Auscultation: rales and diminished lung sounds; Negative for rhonchi or wheezes Cardio regular rate and regular rhythm GI soft to palpation and non-tender Auscultation: hypoactive bowel sounds Extremity no clubbing, cyanosis or edema Skin no rashes or lesions noted Neuro moves all extremities and no focal motor deficits Psych cooperative Charges/Coding Visit Charges Inpatient E&M: 27666 Subs Hosp L2
--- NOTE | 2021-02-11 09:09 | PN.HOSP_ITS ---
Subjective Subjective Doing well, no issues overnight. He is maintaining his oxygen saturations on 8 L nasal cannula Objective Data Objective Data Vital Signs: Vital Signs Temp Pulse Resp BP Pulse Ox 97.6 F L 109 H 18 132/76 H 94 02/11/21 08:09 02/11/21 08:09 02/11/21 08:09 02/11/21 08:09 02/11/21 08:09 Oxygen Flow Rate (L/min) 8 Oxygen Delivery Method Nasal Cannula Weight: 188 lb 4.396 oz Body Mass Index (BMI) 28.3 Intake & Output: Intake and Output for Last 24 Hours 02/10/21 02/11/21 02/12/21 03:59 03:59 03:59 Intake Total 990 / 990 657 / 657 115.75 / 115.75 Output Total 2500 / 2500 2400 / 2400 175 / 175 Balance -1510 / -1510 -1743 / -1743 -59.25 / -59.25 Lab / Micro Data Result Diagrams: 02/11/21 05:03 02/11/21 05:03 Labs: Laboratory Results - last 24 hr 02/10/21 10:48: POC Glucose 309 H 02/10/21 13:00: POC Glucose 201 H 02/10/21 16:38: POC Glucose 159 H 02/10/21 22:10: POC Glucose 171 H 02/11/21 05:03: WBC 23.6 H, RBC 3.97 L, Hgb 13.2, Hct 38.1 L, MCV 96.0 H, MCH 33.2 H, MCHC 34.6, RDW Std Deviation 44.3 H, RDW Coeff of Blanca 12.7, Plt Count 412, MPV 9.8, Immature Gran % (Auto) 0.900, Neut % (Auto) 85.3 H, Lymph % (Auto) 8.1 L, [place] % (Auto) 5.0, Eos % (Auto) 0.3, Baso % (Auto) 0.4, Absolute Neuts (auto) 20.1 H, Absolute Lymphs (auto) 1.91, Nucleated RBC % 0, Differential Comment SCANNED 02/11/21 05:03: Sodium 136, Potassium 3.5, Chloride 102, Carbon Dioxide 24.0, Anion Gap 10, BUN 23 H, Creatinine 0.68 L, Estim Creat Clear Calc 129.72, Est GFR (MDRD) Af Amer 155, Est GFR (MDRD) Non-Af 128, BUN/Creatinine Ratio 33.6 H, Glucose 173 H, Calcium 8.5 02/11/21 06:19: POC Glucose 175 H Micro: Microbiology 02/07/21 18:00 Stool Stool Occult Blood (MATILDA) - Final Occult Blood Positive 02/05/21 09:31 Sputum, Induced/Lukens Gram Stain - Final 02/05/21 09:31 Sputum, Induced/Lukens Respiratory Culture - Final Staphylococcus aureus 02/01/21 11:25 Blood Culture (Wb) - Central Line Blood Culture - Final No growth in 5 days. 02/01/21 11:45 Blood Culture (Wb) - Left Wrist Blood Culture - Final No growth in 5 days. 02/01/21 11:30 Sputum, Induced/Lukens Gram Stain - Final 02/01/21 11:30 Sputum, Induced/Lukens Respiratory Culture - Final Staphylococcus aureus 01/27/21 18:30 Blood Culture (Wb) - Anticubital Left Blood Culture - Final No growth in 5 days. 01/27/21 18:33 Blood Culture (Wb) - Central Line Blood Culture - Final No growth in 5 days. 01/30/21 13:20 Stool C. difficile DNA Amplification - Final 01/28/21 08:20 Sputum, Induced/Lukens Gram Stain - Final 01/28/21 08:20 Sputum, Induced/Lukens Respiratory Culture - Final Mixed normal respiratory eulalia. No Streptococcus pneumoniae, beta-hemolytic Streptococcus or Staphylococcus aureus isolated. 01/27/21 21:40 Urine Catheter - Catheter Urine Culture - Final Culture exhibits no growth. 01/27/21 19:30 Mucosa - Nose Respiratory Panel (PCR) - Final 01/27/21 19:25 Urine Catheter - Catheter Legionella Antigen - Final 01/27/21 19:25 Urine Catheter - Catheter Streptococcus pneumoniae Antigen (M - Final Physical Exam Const alert and no apparent distress General Appearance: cooperative HEENT normocephalic and moist oral mucous membranes Eyes PERRL, EOMs intact bilaterally and conjunctivae normal Neck supple and no JVD Resp normal respiratory effort, no retractions and no use of accessory muscles Auscultation: diminished lung sounds; Negative for crackles, rales, rhonchi or wheezes Cardio regular rate, regular rhythm, S1 normal heart sound, S2 normal heart sound and no murmurs GI soft to palpation, non-tender and non-distended; Negative for hepatosplenomegaly Extremity no clubbing, cyanosis or edema Skin no rashes or lesions noted Neuro no focal motor deficits and no sensory deficits noted Psych Appearance: appropriate Mood & Affect: flat affect Assessment & Plan Assessment/Plan (1) Acute respiratory failure with hypoxia: PLAN: 1. Acute hypoxic respiratory failure ?Secondary to SARS-CoV-2 pneumonia. Patient admitted to the intensive care unit placed on ventilator. Patient was outside the window for remdesivir. Was started on Decadron. Did receive a dose of Tocilizumab -02/06/2021; weaned off the vent - 02/07/2021; patient was placed back on BiPAP following prolonged coughing episode complicated by desaturation.Patient was placed empirically on vancomycin after his cultures came back positive for staph final identification and sensitivities pending 02/08/2021: Continue with air Vo. Appreciate infectious disease and user support analyst supervisor assistance 02/09/2021: Stable continue with air Vo, Will continue with Lasix as needed -02/10/2021: Currently on nasal cannula, will continue to encourage pulmonary toilet, also recommend proning when able. Needs to wear BiPAP at night and this was discussed. Continue with Lasix twice daily -02/11/2021: Continue to wean oxygen 2. Severe sepsis ?Secondary to SARS-CoV-2 pneumonia with superimposed bacterial pneumonia (staph pneumonia) as well as perforated cecum. Patient did receive IV fluid resuscitation and subsequently started on broad-spectrum antibiotic therapy with Zosyn and vancomycin with consultation placed to ID 02/08/2021: Continue with IV antibiotics, sputum culture with MSSA 02/11/2021: We will complete Zosyn tomorrow for a 10-day course. 3. Perforated cecum with very dilated ascending and transverse colon ?Patient underwent exploratory laparotomy with extended right hemicolectomy on 02/04/[address] Wood -02/06/2021 postoperative day 2. Patient complains of some abdominal discomfort his surgical incision however remains clean dry and intact -02/07/2021. Patient has return of bowel function plan is for patient to be started on oral diet once he passes his bedside swallow eval 02/08/2021: Continue with IV Zosyn to cover both MSSA as well as his perforated cecum. Continue to evaluate with speech therapy, he did fail yesterday 02/10/2021: Was evaluated by speech therapy in the past, he is clear to take clear liquids. 4. Hyperglycemia ?Secondary to chronic steroid use Patient is currently on long-acting insulin in addition to sliding scale coverage 5. Essential hypertension ?Blood pressure on the low side patient antihypertensives never restarted 6. Dyslipidemia ?On statin therapy prior to admission DVT: Lovenox Charges/Coding Visit Charges Inpatient E&M: 47997 Subs Hosp L2
--- NOTE | 2021-02-11 09:44 | PN.SURG_ITS ---
Subjective Subjective Abdominal pain improving. Patient states he is passing flatus. Objective Data Objective Data More distended today. But no rebound guarding or peritoneal signs are identified. Vital Signs: Vital Signs Temp Pulse Resp BP Pulse Ox 97.6 F L 109 H 18 132/76 H 94 02/11/21 08:09 02/11/21 08:09 02/11/21 08:09 02/11/21 08:09 02/11/21 08:09 Oxygen Flow Rate (L/min) 8 Oxygen Delivery Method Nasal Cannula Weight: 188 lb 4.396 oz Body Mass Index (BMI) 28.3 Intake & Output: Intake and Output for Last 24 Hours 02/09/21 02/10/21 02/11/21 23:59 23:59 23:59 Intake Total 990 / 990 507 / 507 315.75 / 315.75 Output Total 1835 / 2585 2250 / 2250 1075 / 1075 Balance -845 / -1595 -1743 / -1743 -759.25 / -759.25 Lab / Micro Data Result Diagrams: 02/11/21 05:03 02/11/21 05:03 Labs: Laboratory Results - last 24 hr 02/10/21 10:48: POC Glucose 309 H 02/10/21 13:00: POC Glucose 201 H 02/10/21 16:38: POC Glucose 159 H 02/10/21 22:10: POC Glucose 171 H 02/11/21 05:03: WBC 23.6 H, RBC 3.97 L, Hgb 13.2, Hct 38.1 L, MCV 96.0 H, MCH 33.2 H, MCHC 34.6, RDW Std Deviation 44.3 H, RDW Coeff of Blanca 12.7, Plt Count 412, MPV 9.8, Immature Gran % (Auto) 0.900, Neut % (Auto) 85.3 H, Lymph % (Auto) 8.1 L, [place] % (Auto) 5.0, Eos % (Auto) 0.3, Baso % (Auto) 0.4, Absolute Neuts (auto) 20.1 H, Absolute Lymphs (auto) 1.91, Nucleated RBC % 0, Differential Comment SCANNED 02/11/21 05:03: Sodium 136, Potassium 3.5, Chloride 102, Carbon Dioxide 24.0, Anion Gap 10, BUN 23 H, Creatinine 0.68 L, Estim Creat Clear Calc 129.72, Est GFR (MDRD) Af Amer 155, Est GFR (MDRD) Non-Af 128, BUN/Creatinine Ratio 33.6 H, Glucose 173 H, Calcium 8.5 02/11/21 06:19: POC Glucose 175 H Micro: Microbiology 02/07/21 18:00 Stool Stool Occult Blood (MATILDA) - Final Occult Blood Positive 02/05/21 09:31 Sputum, Induced/Lukens Gram Stain - Final 02/05/21 09:31 Sputum, Induced/Lukens Respiratory Culture - Final Staphylococcus aureus 02/01/21 11:25 Blood Culture (Wb) - Central Line Blood Culture - Final No growth in 5 days. 02/01/21 11:45 Blood Culture (Wb) - Left Wrist Blood Culture - Final No growth in 5 days. 02/01/21 11:30 Sputum, Induced/Lukens Gram Stain - Final 02/01/21 11:30 Sputum, Induced/Lukens Respiratory Culture - Final Staphylococcus aureus 01/27/21 18:30 Blood Culture (Wb) - Anticubital Left Blood Culture - Final No growth in 5 days. 01/27/21 18:33 Blood Culture (Wb) - Central Line Blood Culture - Final No growth in 5 days. 01/30/21 13:20 Stool C. difficile DNA Amplification - Final 01/28/21 08:20 Sputum, Induced/Lukens Gram Stain - Final 01/28/21 08:20 Sputum, Induced/Lukens Respiratory Culture - Final Mixed normal respiratory eulalia. No Streptococcus pneumoniae, beta-hemolytic Streptococcus or Staphylococcus aureus isolated. 01/27/21 21:40 Urine Catheter - Catheter Urine Culture - Final Culture exhibits no growth. 01/27/21 19:30 Mucosa - Nose Respiratory Panel (PCR) - Final 01/27/21 19:25 Urine Catheter - Catheter Legionella Antigen - Final 01/27/21 19:25 Urine Catheter - Catheter Streptococcus pneumoniae Antigen (M - Final Assessment & Plan Assessment/Plan (1) Perforated bowel: PLAN: Passes swallowing study. We will start clears. White count is elevated will need to go slow on his oral intake
[2021-02-11] MEDS: Carvedilol 25 MG Tablet PO ×2 (09:58→21:18)
[2021-02-11] MEDS: Ascorbic Acid 500 MG Tablet 1000 MG PO (09:59)
[2021-02-11] MEDS: Enoxaparin 30 MG/0.3 ML Syringe SC ×2 (09:59→21:17)
[2021-02-11 11:30] LABS: Bedside Glucose 201 mg/dL (70-110)
[2021-02-11] MEDS: Furosemide 40 MG/4 ML Vial IV ×2 (11:34→18:51)
[2021-02-11] MEDS: guaiFENesin 10 ML UDC (200MG/10ML) PO ×2 (14:33→21:15)
[2021-02-11 16:41] LABS: Bedside Glucose 185 mg/dL (70-110)
[2021-02-11 21:45] LABS: Bedside Glucose 275 mg/dL (70-110)
[2021-02-11] MEDS: MELATONIN 3 MG TABLET PO (23:04)
[2021-02-12] VITALS (27 sets, daily range): BP systolic 68–116; BP diastolic 47–77; PULSE 85–120; RESP 14–24; TEMP 35.7–37.6; O2SAT 90–100; BMI 27.1
--- NOTE | 2021-02-12 | COL_PTH ---
PATIENT: KEHINDE RIOJAS LOC: [facility] U#:[id number] AGE/SX: 55/M ROOM: [facility] RE01/27/[address]: Dr. Keven Martinez MD : [id number] BED: 1 DIS: 02/22/2021 SPEC #: [id number] RECD: 02/12/21 12:49 STATUS: PJ REDom #: [id number] ZAIN: 02/12/21 00:[address]: Jesús Wood DEPT: SURGICAL PATHOLOGY RECD BY: Salvador Giron ENTERED: 02/12/21 12:50 SP TYPE: COLON OTHR DR: MD Dr. Juanita Amos MD Dr. Derek Brown, DO Dr. Nicholas F Kotsonis, MD Dr. Robert Leininger, MD Dr. Scott Brown, MD Tissues: Colon, NOS Procedures: Surgery Specimen Level V Comments: @ Ordering doctor for SUV edited from to @ by REZA at 02/12/21 1429 @ Submitting doctor edited from to @ by RGOOD at 02/12/21 1429 HEADER OPERATION: Laparotomy with resection of ileocolic anastomosis PRE-OP DIAGNOSIS: Evisceration of bowel TISSUE SUBMITTED: Ileocolic anastomosis MICROSCOPIC DIAGNOSIS Ileocolic anastomosis, segmental resection: Focal mucosal ulceration with adjacent acute serositis. Colonic margin with focal acute serositis. Fibrosis and granulation consistent with anastomotic site. AM:julio 02/14/2021 COMMENT Reference is made to the patient's previous right colon, hemicolectomy ([id number]) in which perforated viscus was identified. Case has been reviewed in consultation with Dr. Ty who concurs with the above diagnosis. IDC:SJ MICROSCOPIC DESCRIPTION Slides are reviewed. GROSS DESCRIPTION Received in fixative is one container labeled with the patient's name and designated ileocolic anastomosis. The specimen consists of a segment of ileum and bowel with [id number] anastomosis. The segment of small bowel measures 11 cm in length and segment of large bowel measures 5 cm in length. A focal area of defect is noted adjacent to the ileocolic anastomosis measuring 0.5 cm in greatest dimension. The resection margins are stapled. No mucosal lesion is identified. More dictation will follow after fixation. / SAKSHI:julio 02/12/21 The serosal surface is focally covered with alcala, purulent exudate. Sections of the mcallister mesenteric tissue?do not reveal any obviously enlarged lymph node. Life Skills Coach sections are submitted in five cassettes as follows: 1 - resection margin, 2 - area of defect close to the anastomosis, 3 & 4 - outbound telemarketing representative sections of small intestine and large bowel, 5 - pericolonic adipose tissue. / SAKSHI:julio 02/13/21 TC:2 CPT: 88118
[2021-02-12] MEDS: guaiFENesin 10 ML UDC (200MG/10ML) PO (05:05)
[2021-02-12] MEDS: Acetaminophen 325 MG Tablet 650 MG PO (05:05)
[2021-02-12] MEDS: Loperamide (Oral Liquid) 1 MG/7.5 ML ML 4 MG PO (05:06)
[2021-02-12] MEDS: Menthol/Lanolin/Calamine/Znox 113 GM Tube 1 APPLIC TOPICAL ×2 (05:06→21:35)
[2021-02-12 06:14] LABS: Absolute Lymphocyte Count 1.47 X10^3/uL (0.83-4.51); Absolute Neutrophil Count 13.6 X10^3/uL (2.0-7.7); Basophil# 0.06 X10^3/uL; Basophil% 0.4 % (0-1); Eosinophils% 0.6 % (0-5); Hematocrit 32.7 % (40-54); Hemoglobin 11.5 g/dL (13.0-16.5); Lymphocyte # 1.47 X10^3/ul (0.83-4.51); Lymphocyte % 9.1 % (19-41); Mean Corp Hgb Conc 35.2 g/dL (32-36); Mean Corpuscular Hgb 33.4 pg (27.0-32.0); Mean Corpuscular Volume 95.1 fL (80-94); Mean Platelet Vol. 9.6 fl (6.2-12.0); Monocyte# 0.88 X10^3/uL; Monocyte% 5.4 % (0-10); NRBC Flagged by Analyzer 0 % (0-5); Neutrophil # 13.57 X10^3/uL (2.7-7.7); Neutrophil % 83.8 % (47-70); POSITIVE MORPHOLOGY YES; Platelet Count 326 K/mm3 (150-450); RBC Distribution Width CV 12.9 % (11.6-14.6); RBC Distribution Width SD 44.6 fl (35.1-43.9); Red Blood Count 3.44 M/mm3 (4.6-6.2); White Blood Count 16.2 K/mm3 (4.4-11.0)
[2021-02-12] MEDS: Insulin Lispro 100 UNIT/ML INSULN.PEN SC ×4 (06:21→21:41)
[2021-02-12 06:30] LABS: Anion Gap 8 (5-15); BUN 30 mg/dL (7-18); BUN/Creat Ratio 37.5 RATIO (10-20); Calcium,Total 8.5 mg/dL (8.5-10.1); Chloride 99 mmol/L (98-107); EST Glomerular Filtration Rate 107 mL/min (>60); Est Glom Filt Rate - Afr Amer 130 mL/min (>60); Estimated Creatinine Clearance 110.26 ml/min; Glucose 153 mg/dL (74-106); Potassium 3.2 mmol/L (3.5-5.1); Sodium Level 135 mmol/L (136-145)
[2021-02-12 06:31] LABS: Bedside Glucose 154 mg/dL (70-110)
[2021-02-12 06:42] LABS: Differential Indicated SCAN CRITERIA MET
--- NOTE | 2021-02-12 08:07 | PCM.PN.SRG ---
Subjective Subjective Patient reports no abdominal pain. He reports hearing a pop yesterday during a coughing fit. There is been some drainage from his incision. Objective Data Objective Data Vital Signs: Vital Signs Temp Pulse Resp BP Pulse Ox 97.8 F 85 18 107/61 94 02/12/21 05:00 02/12/21 05:00 02/12/21 05:00 02/12/21 05:00 02/12/21 07:20 Oxygen Flow Rate (L/min) 7 Oxygen Delivery Method Nasal Cannula Weight: 189 lb 6.033 oz Body Mass Index (BMI) 28.3 Intake & Output: Intake and Output for Last 24 Hours 02/10/21 02/11/21 02/12/21 23:59 23:59 23:59 Intake Total 507 / 507 1635.75 / 1635.75 307.75 / 307.75 Output Total 2250 / 2250 2550 / 2550 250 / 250 Balance -1743 / -1743 -914.25 / -914.25 57.75 / 57.75 Lab / Micro Data Result Diagrams: 02/12/21 05:58 02/12/21 05:58 Labs: Laboratory Results - last 24 hr 02/11/21 11:12: POC Glucose 201 H 02/11/21 16:36: POC Glucose 185 H 02/11/21 21:29: POC Glucose 275 H 02/12/21 05:58: WBC 16.2 H, RBC 3.44 L, Hgb 11.5 L, Hct 32.7 L, MCV 95.1 H, MCH 33.4 H, MCHC 35.2, RDW Std Deviation 44.6 H, RDW Coeff of Blanca 12.9, Plt Count 326, MPV 9.6, Immature Gran % (Auto) 0.700, Neut % (Auto) 83.8 H, Lymph % (Auto) 9.1 L, [place] % (Auto) 5.4, Eos % (Auto) 0.6, Baso % (Auto) 0.4, Absolute Neuts (auto) 13.6 H, Absolute Lymphs (auto) 1.47, Nucleated RBC % 0 02/12/21 05:58: Sodium 135 L, Potassium 3.2 L, Chloride 99, Carbon Dioxide 28.0, Anion Gap 8, BUN 30 H, Creatinine 0.80, Estim Creat Clear Calc 110.26, Est GFR (MDRD) Af Amer 130, Est GFR (MDRD) Non-Af 107, BUN/Creatinine Ratio 37.5 H, Glucose 153 H, Calcium 8.5 02/12/21 06:20: POC Glucose 154 H Micro: Microbiology 02/07/21 18:00 Stool Stool Occult Blood (MATILDA) - Final Occult Blood Positive 02/05/21 09:31 Sputum, Induced/Lukens Gram Stain - Final 02/05/21 09:31 Sputum, Induced/Lukens Respiratory Culture - Final Staphylococcus aureus 02/01/21 11:25 Blood Culture (Wb) - Central Line Blood Culture - Final No growth in 5 days. 02/01/21 11:45 Blood Culture (Wb) - Left Wrist Blood Culture - Final No growth in 5 days. 02/01/21 11:30 Sputum, Induced/Lukens Gram Stain - Final 02/01/21 11:30 Sputum, Induced/Lukens Respiratory Culture - Final Staphylococcus aureus 01/27/21 18:30 Blood Culture (Wb) - Anticubital Left Blood Culture - Final No growth in 5 days. 01/27/21 18:33 Blood Culture (Wb) - Central Line Blood Culture - Final No growth in 5 days. 01/30/21 13:20 Stool C. difficile DNA Amplification - Final 01/28/21 08:20 Sputum, Induced/Lukens Gram Stain - Final 01/28/21 08:20 Sputum, Induced/Lukens Respiratory Culture - Final Mixed normal respiratory eulalia. No Streptococcus pneumoniae, beta-hemolytic Streptococcus or Staphylococcus aureus isolated. 01/27/21 21:40 Urine Catheter - Catheter Urine Culture - Final Culture exhibits no growth. 01/27/21 19:30 Mucosa - Nose Respiratory Panel (PCR) - Final 01/27/21 19:25 Urine Catheter - Catheter Legionella Antigen - Final 01/27/21 19:25 Urine Catheter - Catheter Streptococcus pneumoniae Antigen (M - Final Physical Exam Cardio regular rate GI soft to palpation GI Narrative: From the incision. [place] were removed to reveal evisceration of the small bowel. Assessment & Plan Assessment/Plan (1) Evisceration of bowel: (2) Acute respiratory failure with hypoxia: PLAN: The patient reports hearing a pop yesterday during a coughing fit. The patient was having drainage from his incision. I removed some jovita to find that the patient had evisceration of small bowel and omentum. I covered the small bowel with a wet gauze and plan to take the patient emergently back for closure of fascia and placement of retention sutures. I discussed this with the patient and his . I discussed the risks including but not limited to bleeding, infection, injury to bowel or need for bowel resection. Patient understands the risks and is willing to proceed as was his . I obtained informed consent from the due to narcotic use of the patient. I also explained to the patient that he may remain intubated and be sent to the ICU following surgery as his respiratory status is tenuous due to Covid. Jesús Wood MD Pager: [facility] [address] [place] [address] [address] [place] [address] Office:
--- NOTE | 2021-02-12 08:33 | PN.HOSP_ITS ---
Subjective Subjective No issues overnight. He was found to have a fascial defect necessitating repeat surgery for closure. Objective Data Objective Data Vital Signs: Vital Signs Temp Pulse Resp BP Pulse Ox 98.2 F 101 H 24 H 116/65 91 02/12/21 08:02 02/12/21 08:02 02/12/21 08:02 02/12/21 08:02 02/12/21 08:02 Oxygen Flow Rate (L/min) 7 Oxygen Delivery Method Nasal Cannula Weight: 189 lb 6.033 oz Body Mass Index (BMI) 27.1 Intake & Output: Intake and Output for Last 24 Hours 02/11/21 02/12/21 02/13/21 03:59 03:59 03:59 Intake Total 657 / 657 1485.75 / 1485.75 257.75 / 257.75 Output Total 2400 / 2400 1650 / 1650 250 / 250 Balance -1743 / -1743 -164.25 / -164.25 7.75 / 7.75 Lab / Micro Data Result Diagrams: 02/12/21 05:58 02/12/21 05:58 Labs: Laboratory Results - last 24 hr 02/11/21 11:12: POC Glucose 201 H 02/11/21 16:36: POC Glucose 185 H 02/11/21 21:29: POC Glucose 275 H 02/12/21 05:58: WBC 16.2 H, RBC 3.44 L, Hgb 11.5 L, Hct 32.7 L, MCV 95.1 H, MCH 33.4 H, MCHC 35.2, RDW Std Deviation 44.6 H, RDW Coeff of Blanca 12.9, Plt Count 326, MPV 9.6, Immature Gran % (Auto) 0.700, Neut % (Auto) 83.8 H, Lymph % (Auto) 9.1 L, [place] % (Auto) 5.4, Eos % (Auto) 0.6, Baso % (Auto) 0.4, Absolute Neuts (auto) 13.6 H, Absolute Lymphs (auto) 1.47, Nucleated RBC % 0 02/12/21 05:58: Sodium 135 L, Potassium 3.2 L, Chloride 99, Carbon Dioxide 28.0, Anion Gap 8, BUN 30 H, Creatinine 0.80, Estim Creat Clear Calc 110.26, Est GFR (MDRD) Af Amer 130, Est GFR (MDRD) Non-Af 107, BUN/Creatinine Ratio 37.5 H, Glucose 153 H, Calcium 8.5 02/12/21 06:20: POC Glucose 154 H Micro: Microbiology 02/07/21 18:00 Stool Stool Occult Blood (MATILDA) - Final Occult Blood Positive 02/05/21 09:31 Sputum, Induced/Lukens Gram Stain - Final 02/05/21 09:31 Sputum, Induced/Lukens Respiratory Culture - Final Staphylococcus aureus 02/01/21 11:25 Blood Culture (Wb) - Central Line Blood Culture - Final No growth in 5 days. 02/01/21 11:45 Blood Culture (Wb) - Left Wrist Blood Culture - Final No growth in 5 days. 02/01/21 11:30 Sputum, Induced/Lukens Gram Stain - Final 02/01/21 11:30 Sputum, Induced/Lukens Respiratory Culture - Final Staphylococcus aureus 01/27/21 18:30 Blood Culture (Wb) - Anticubital Left Blood Culture - Final No growth in 5 days. 01/27/21 18:33 Blood Culture (Wb) - Central Line Blood Culture - Final No growth in 5 days. 01/30/21 13:20 Stool C. difficile DNA Amplification - Final 01/28/21 08:20 Sputum, Induced/Lukens Gram Stain - Final 01/28/21 08:20 Sputum, Induced/Lukens Respiratory Culture - Final Mixed normal respiratory eulalia. No Streptococcus pneumoniae, beta-hemolytic Streptococcus or Staphylococcus aureus isolated. 01/27/21 21:40 Urine Catheter - Catheter Urine Culture - Final Culture exhibits no growth. 01/27/21 19:30 Mucosa - Nose Respiratory Panel (PCR) - Final 01/27/21 19:25 Urine Catheter - Catheter Legionella Antigen - Final 01/27/21 19:25 Urine Catheter - Catheter Streptococcus pneumoniae Antigen (M - Final Physical Exam Const alert and no apparent distress General Appearance: cooperative HEENT normocephalic and moist oral mucous membranes Eyes PERRL, EOMs intact bilaterally and conjunctivae normal Neck supple and no JVD Resp normal respiratory effort, no retractions and no use of accessory muscles Auscultation: diminished lung sounds; Negative for crackles, rales, rhonchi or wheezes Cardio regular rate, regular rhythm, S1 normal heart sound, S2 normal heart sound and no murmurs GI soft to palpation, non-tender and non-distended; Negative for hepatosplenomegaly Extremity no clubbing, cyanosis or edema Skin no rashes or lesions noted Neuro no focal motor deficits and no sensory deficits noted Psych Appearance: appropriate Mood & Affect: flat affect Assessment & Plan Assessment/Plan (1) Acute respiratory failure with hypoxia: PLAN: 1. Acute hypoxic respiratory failure ?Secondary to SARS-CoV-2 pneumonia. Patient admitted to the intensive care unit placed on ventilator. Patient was outside the window for remdesivir. Was started on Decadron. Did receive a dose of Tocilizumab -02/06/2021; weaned off the vent - 02/07/2021; patient was placed back on BiPAP following prolonged coughing episode complicated by desaturation.Patient was placed empirically on vancomycin after his cultures came back positive for staph final identification and sensitivities pending 02/08/2021: Continue with air Vo. Appreciate infectious disease and business resiliency manager assistance 02/09/2021: Stable continue with air Vo, Will continue with Lasix as needed -02/10/2021: Currently on nasal cannula, will continue to encourage pulmonary toilet, also recommend proning when able. Needs to wear BiPAP at night and this was discussed. Continue with Lasix twice daily -02/11/2021: Continue to wean oxygen -02/12/2021: We will continue to wean oxygen though he does need to go back to the OR today for fascial closure and may need to be intubated secondary to his respiratory status with Covid 2. Severe sepsis ?Secondary to SARS-CoV-2 pneumonia with superimposed bacterial pneumonia (staph pneumonia) as well as perforated cecum. Patient did receive IV fluid resuscitation and subsequently started on broad-spectrum antibiotic therapy with Zosyn and vancomycin with consultation placed to ID 02/08/2021: Continue with IV antibiotics, sputum culture with MSSA 02/11/2021: We will complete Zosyn tomorrow for a 10-day course. 02/12/2021: May need to continue his Zosyn for another 24 hours secondary to the needing to go back to the OR today for fascial closure 3. Perforated cecum with very dilated ascending and transverse colon ?Patient underwent exploratory laparotomy with extended right hemicolectomy on 02/04/[address] Wood -02/06/2021 postoperative day 2. Patient complains of some abdominal discomfort his surgical incision however remains clean dry and intact -02/07/2021. Patient has return of bowel function plan is for patient to be started on oral diet once he passes his bedside swallow eval 02/08/2021: Continue with IV Zosyn to cover both MSSA as well as his perforated cecum. Continue to evaluate with speech therapy, he did fail yesterday 02/10/2021: Was evaluated by speech therapy in the past, he is clear to take clear liquids. 02/12/2021: See #2 4. Hyperglycemia ?Secondary to chronic steroid use Patient is currently on long-acting insulin in addition to sliding scale coverage 5. Essential hypertension ?Blood pressure on the low side patient antihypertensives never restarted 6. Dyslipidemia ?On statin therapy prior to admission DVT: Lovenox Charges/Coding Visit Charges Inpatient E&M: 66770 Subs Hosp L2
[2021-02-12] MEDS: Bupivacaine Mpf 0.5% 30 ML VIAL (09:32)
--- NOTE | 2021-02-12 11:35 | RAD_ITS ---
STUDY: X-RAY - ABDOMEN/PELVIS REASON FOR EXAM: Male, 55 years old. og placement TECHNIQUE: Single AP view of the abdomen / pelvis. COMPARISON: None. FINDINGS: OG tube tip noted in the body of the stomach. EKG leads overlie the lower abdomen There is an unremarkable bowel gas pattern. There is no demonstrated free abdominal air. The visualized liver, spleen and kidneys are grossly normal in size and morphology. Normal soft tissue structures. There are diffuse degenerative changes of the visualized lumbar spine. RAD/Abdomen Single View (Portable) IMPRESSION: OG/NG tube tip in the body the stomach Electronically Signed: Juan Zimmerman MD at 12:51 EDT , Service support ,
--- NOTE | 2021-02-12 11:35 | RAD_ITS ---
STUDY: X-RAY CHEST REASON FOR EXAM: Male, 55 years old. Line placement TECHNIQUE: Single AP portable view of the chest. COMPARISON: 02/07/2021 FINDINGS: Since the previous study, patient has been intubated, tip of the ET tube is 4 cm above the bing, NG tube tip not seen but is below the diaphragm EKG leads overlie the chest. Stable appearance of a right IJ central venous catheter. Significant interval worsening since the previous study. The right hemithorax shows significant pleural thickening in the upper half of the right hemithorax and in the lower third of the right hemithorax with very little normal-appearing right lung noted. The left lung shows persistent interstitial and airspace opacifications. Normal size heart. Normal mediastinum and nadia. Normal visualized pulmonary arteries. Normal visualized aortic arch and descending thoracic aorta. There are diffuse degenerative changes of the visualized thoracic spine. There is degenerative osteoarthritis of the bilateral shoulders. There is no demonstrated abnormality of the visualized soft tissue structures of the upper abdomen. RAD/Chest 1 View (Portable) IMPRESSION: Significant interval worsening since the previous study. Significant opacification pleural thickening now noted throughout the right hemithorax with very little normal-appearing right lung noted. Findings suggest progression of opacifications and likely effusions. Left lung shows persistent interstitial and airspace opacifications Electronically Signed: Juan Zimmerman MD at 12:54 EDT , Service support ,
--- NOTE | 2021-02-12 11:50 | PCM.OPRPT ---
Problems Associated Problem List Diagnoses (1) Anastomotic leak of intestine: (2) Evisceration of bowel: Report of Operation Date of Procedure: 02/12/21 Pre-Operative Diagnosis: Small bowel evisceration with fascial dehiscence Post-Operative Diagnosis: 1. Fascial dehiscence with small bowel evisceration 2. Leak from ileocolic anastomosis. Surgery/Procedure Performed:: Laparotomy with resection of ileocolic anastomosis and creation of end ileostomy and mucous fistula Specimen's removed: Ileocolic anastomosis Description of Procedure: Patient was brought back to the operating room and general anesthesia was induced. The abdomen was prepped and draped the jovita are removed. The anterior fascia was complete the dehisced. The loose adhesions were broken down with finger fracture. There was some purulence and the ileocolic anastomosis was inspected and appeared to be leaking. There is breakdown at the corner of the enterostomy staple line. Due to the fact that the patient was septic and on pressors at this point diversion was chosen. Distal to the anastomosis the colon was dissected free and divided using a 75 SENTHIL stapler. Just proximal to this a SENTHIL stapler was used to divide the small bowel. LigaSure impact was used to take down the mesentery and the ileocolic anastomosis was resected. A small incision was made left upper quadrant and the fascia was divided. [place] was used to bring the distal transverse colon staple line into the incision and a mucous fistula was created using interrupted 3-0 Vicryl sutures. Next the small bowel was traced backwards and its mesentery was taken to allow for mobility to the anterior abdominal wall. The small bowel mesentery was very thickened and shortened. The abdomen was irrigated copiously and suctioned dry. In the right lower quadrant an area was chosen and the skin was incised and removed. Dissection was carried down to the anterior fascia which was opened in a cruciate fashion. The muscle was split and the posterior sheath was divided as well. [place] were used to bring the distal small bowel through the ostomy incision. The omentum was draped over the bowel and the midline fascia was closed with a running 0 PDS suture with interrupted [address] along the way. Retention sutures of #1 Nurolon were also placed with bolsters. After the incision was closed in the subcutaneous tissue was packed with a Betadine Curlex the small bowel stoma was matured. The distal end was removed and the stoma was sutured to the skin using interrupted 3-0 Vicryl sutures. A stoma appliance was applied. Wet gauze was placed over the mucous fistula and the patient was taken to ICU intubated and on pressors. Admit VTE Documentation VTE Mechan Device Prophylaxis: SCD's
[2021-02-12] MEDS: Propofol 10MG/Ml 1,000 MG/100 ML Bottle 5.2 MG CONT INF (12:00)
--- NOTE | 2021-02-12 12:07 | NURSING ---
pt arrived from surgery levo @ 65mcg decreased to 30 mcg as per protocol
--- NOTE | 2021-02-12 12:08 | CASEMGMT ---
SW spoke w/pt's , offered support. Pt had surgery again today and is back in the ICU. SW will continue to follow and remains available for support to . CAROLYNN Pizarro
--- NOTE | 2021-02-12 12:29 | PN.CC_ITS ---
Assessment & Plan Assessment/Plan (1) Acute respiratory failure with hypoxia: (2) Pneumonia due to COVID-19 virus: PLAN: RECOMMENDATIONS: 1. Continue to wean supplemental oxygen to maintain saturations at or above 90%. 2. Continue scheduled IV Lasix as tolerated by hemodynamics and renal function. 3. Dietary advancement as tolerated. 4. Continue antimicrobials as ordered to complete a total of 7 days of therapy. 5. Continue PPI therapy and Lovenox. 6. Given improving oxygenation status, will sign off. Please call with any additional questions. IMPRESSIONS: 1. Acute hypoxemic respiratory failure secondary to COVID-19 pneumonia The patient presented to the hospital with progressive Covid symptoms after having been initially diagnosed at the end of December. He was therefore outside of the window for remdesivir. CTA chest showed no evidence for pulmonary embolism. The patient was emergently intubated in the emergency department. The patient has completed his treatment courses for his Covid. He remains on antimicrobials for the MSSA isolated from his sputum. The patient improved from a respiratory perspective and was able to be extubated on February 06. On 02/12/2021, patient with subsequent respiratory failure following surgery. Patient with significant secretions noted. Clinical suspicion for systemic inflammatory response. Patient is on Zosyn at this time. Will send a culture, but no broadening in spectrum at this time. Chest x-ray is suggestive of a right-sided pleural effusion. This may need to be tapped in the future 2. Bowel perforation, now POD #7 s/p exploratory laparotomy with right hemicolectomy for ischemic -evisceration with anastomotic leak POD 0 Patient back from surgery on 02/12/2021 secondary to evisceration with anastomotic leak and subsequent septic shock. Patient's pressors have improved. We will continue with volume optimization and antibiotics. Patient remains on Zosyn therapy. This should provide significant coverage, but will need to extend coverage beyond previous target. 3. Acute kidney injury Resolved. Likely prerenal in etiology. We will have to watch closely given the development of septic shock secondary to problem #2.. Creatinine has subsequently normalized. We will continue to monitor urine output. 4. Obesity/hypertension/hyperlipidemia Complicates care, management, recovery and prognosis. Continue home medications as indicated. TIME: 45 minutes critical care time spent addressing patient's septic shock, acute hypoxic respiratory failure, bowel evisceration with anastomotic leak, review of all data and collaboration with care team (11 AM to 12:30 PM) Subjective Subjective Patient with significant difficulties overnight. Patient was reportedly tolerating nasal cannula prior to signing off from a pulmonary/critical care perspective. Patient was taken back to surgery this morning secondary to an evisceration of small bowel. Patient reportedly had complained of a popping sensation yesterday. In the OR, patient was noted to have an anastomotic leak. This was repaired and patient was given an ileostomy, mucous drain and left to heal by secondary intention. Patient was on pressure control ventilation with Levophed at 65 mics on presentation. Patient was transitioned to assist control and Levophed has been able to be weaned down to 20 mics. Patient was initiated on pain control and sedation. No additional history could be obtained from the patient on transfer to the intensive care unit. Objective Data Objective Data Vital Signs: Vital Signs Temp Pulse Resp BP Pulse Ox 36.8 C 101 H 16 98/76 100 02/12/21 08:02 02/12/21 12:00 02/12/21 12:00 02/12/21 12:00 02/12/21 12:00 Oxygen Flow Rate (L/min) 7 Oxygen Delivery Method Mechanical Ventilator Weight: 85.9 kg Body Mass Index (BMI) 27.1 Intake & Output: Intake and Output for Last 24 Hours 02/10/21 02/11/21 02/12/21 23:59 23:59 23:59 Intake Total 507 / 507 1635.75 / 1635.75 307.75 / 307.75 Output Total 2250 / 2250 2550 / 2550 350 / 350 Balance -1743 / -1743 -914.25 / -914.25 -42.25 / -42.25 Lab / Micro Data Result Diagrams: 02/12/21 05:58 02/12/21 05:58 Labs: Laboratory Results - last 24 hr 02/11/21 16:36: POC Glucose 185 H 02/11/21 21:29: POC Glucose 275 H 02/12/21 05:58: WBC 16.2 H, RBC 3.44 L, Hgb 11.5 L, Hct 32.7 L, MCV 95.1 H, MCH 33.4 H, MCHC 35.2, RDW Std Deviation 44.6 H, RDW Coeff of Blanca 12.9, Plt Count 326, MPV 9.6, Immature Gran % (Auto) 0.700, Neut % (Auto) 83.8 H, Lymph % (Auto) 9.1 L, [place] % (Auto) 5.4, Eos % (Auto) 0.6, Baso % (Auto) 0.4, Absolute Neuts (auto) 13.6 H, Absolute Lymphs (auto) 1.47, Nucleated RBC % 0 02/12/21 05:58: Sodium 135 L, Potassium 3.2 L, Chloride 99, Carbon Dioxide 28.0, Anion Gap 8, BUN 30 H, Creatinine 0.80, Estim Creat Clear Calc 110.26, Est GFR (MDRD) Af Amer 130, Est GFR (MDRD) Non-Af 107, BUN/Creatinine Ratio 37.5 H, Glucose 153 H, Calcium 8.5 02/12/21 06:20: POC Glucose 154 H Micro: Microbiology 02/07/21 18:00 Stool Stool Occult Blood (MATILDA) - Final Occult Blood Positive 02/05/21 09:31 Sputum, Induced/Lukens Gram Stain - Final 02/05/21 09:31 Sputum, Induced/Lukens Respiratory Culture - Final Staphylococcus aureus 02/01/21 11:25 Blood Culture (Wb) - Central Line Blood Culture - Final No growth in 5 days. 02/01/21 11:45 Blood Culture (Wb) - Left Wrist Blood Culture - Final No growth in 5 days. 02/01/21 11:30 Sputum, Induced/Lukens Gram Stain - Final 02/01/21 11:30 Sputum, Induced/Lukens Respiratory Culture - Final Staphylococcus aureus 01/27/21 18:30 Blood Culture (Wb) - Anticubital Left Blood Culture - Final No growth in 5 days. 01/27/21 18:33 Blood Culture (Wb) - Central Line Blood Culture - Final No growth in 5 days. 01/30/21 13:20 Stool C. difficile DNA Amplification - Final 01/28/21 08:20 Sputum, Induced/Lukens Gram Stain - Final 01/28/21 08:20 Sputum, Induced/Lukens Respiratory Culture - Final Mixed normal respiratory eulalia. No Streptococcus pneumoniae, beta-hemolytic Streptococcus or Staphylococcus aureus isolated. 01/27/21 21:40 Urine Catheter - Catheter Urine Culture - Final Culture exhibits no growth. 10/09/21 19:30 Mucosa - Nose Respiratory Panel (PCR) - Final 01/27/21 19:25 Urine Catheter - Catheter Legionella Antigen - Final 01/27/21 19:25 Urine Catheter - Catheter Streptococcus pneumoniae Antigen (M - Final Physical Exam Const General Appearance: lethargic, intubated and patient mechanically ventilated Nutritional Appearance: obese HEENT normocephalic and head/scalp atraumatic Eyes PERRL, EOMs intact bilaterally and conjunctivae normal Neck supple General: trachea midline and CVC in place Chest Chest Narrative: Decreased excursion of the right chest Chest: Negative for symmetrical chest wall rise or crepitus Resp Auscultation: rhonchi and diminished lung sounds; Negative for rales or wheezes Cardio regular rate and regular rhythm GI GI Narrative: Open bowel wound. New ostomy noted. Inspection: ostomy present Auscultation: hypoactive bowel sounds Extremity no clubbing, cyanosis or edema Skin no rashes or lesions noted Neuro moves all extremities and no focal motor deficits Psych cooperative Charges/Coding Procedures Hospitalists Procedures: [id number] Critial Care 1st Hr
[2021-02-12 13:05] LABS: Bedside Glucose 160 mg/dL (70-110)
[2021-02-12] MEDS: Furosemide 40 MG/4 ML Vial IV (13:08)
[2021-02-12] MEDS: Enoxaparin 30 MG/0.3 ML Syringe SC ×2 (13:10→21:36)
--- NOTE | 2021-02-12 15:25 | PCM.PN.ID ---
Physical Exam Narrative On vent, no fever Const Constitutional Narrative: sedated Resp Auscultation: diminished lung sounds Cardio Rate: tachycardic GI normal to inspection, nondistended, normoactive bowel sounds Skin no rashes or lesions noted ID ID: Route of nutrition/ use of supplements: [] Nutritional Intake: [] IV Site: [] Colon Catheter: [] Assessment & Plan Assessment/Plan (1) Pneumonia due to COVID-19 virus: PLAN: Sx started around 01/15. Isolate for 20 days from that point. Unvaccinated. Encouraged vaccine once recovered. Cxs neg. Wbc remains elevated but improved. UAg neg. CT neg for PE. Given toci x1 on 01/27. Completed dex. Sputum with mssa. Now with bowel perf, taken to OR 02/[address] Wood for extended R hemicolectomy. Possible side effect of tocilizumab, has been reported post marketing; d/w pharmacy, report sent. On zosyn. Taken back to OR today for fascial dehiscence and small bowel evisceration. Will follow (2) Acute respiratory failure with hypoxia: (3) Perforated bowel:
[2021-02-12 16:20] LABS: Bedside Glucose 166 mg/dL (70-110)
--- NOTE | 2021-02-12 20:00 | NURSING ---
Came onto shift and when checking drips during beside report at 191: Propofol 10mcg/kg/min Fentanyl 50mcg/hr Levophed 20mcg/min When looking at the MAR titrations were not done at this time.
[2021-02-12] MEDS: MELATONIN 3 MG TABLET PO (21:36)
[2021-02-12 21:55] LABS: Bedside Glucose 182 mg/dL (70-110)
[2021-02-13] VITALS (39 sets, daily range): BP systolic 82–133; BP diastolic 59–88; PULSE 77–123; RESP 12–27; TEMP 36.9–37.7; O2SAT 89–100
[2021-02-13 04:28] LABS: Absolute Lymphocyte Count 1.54 X10^3/uL (0.83-4.51); Absolute Neutrophil Count 17.8 X10^3/uL (2.0-7.7); Basophil# 0.13 X10^3/uL; Basophil% 0.6 % (0-1); Hemoglobin 11.7 g/dL (13.0-16.5); Lymphocyte # 1.54 X10^3/ul (0.83-4.51); Lymphocyte % 7.5 % (19-41); Mean Corp Hgb Conc 34.4 g/dL (32-36); Mean Corpuscular Hgb 33.2 pg (27.0-32.0); Mean Corpuscular Volume 96.6 fL (80-94); Mean Platelet Vol. 9.8 fl (6.2-12.0); Monocyte# 0.92 X10^3/uL; Monocyte% 4.5 % (0-10); NRBC Flagged by Analyzer 0 % (0-5); Neutrophil % 86.4 % (47-70); POSITIVE MORPHOLOGY YES; Platelet Count 407 K/mm3 (150-450); RBC Distribution Width CV 13.2 % (11.6-14.6); RBC Distribution Width SD 45.6 fl (35.1-43.9); Red Blood Count 3.52 M/mm3 (4.6-6.2); White Blood Count 20.6 K/mm3 (4.4-11.0)
[2021-02-13 04:29] LABS: Differential Indicated SCAN CRITERIA MET
[2021-02-13 04:55] LABS: Anion Gap 10 (5-15); BUN 44 mg/dL (7-18); BUN/Creat Ratio 30.6 RATIO (10-20); Chloride 100 mmol/L (98-107); Creatinine, Serum 1.44 mg/dL (0.70-1.30); EST Glomerular Filtration Rate 54 mL/min (>60); Est Glom Filt Rate - Afr Amer 66 mL/min (>60); Estimated Creatinine Clearance 61.26 ml/min; Glucose 190 mg/dL (74-106); Sodium Level 136 mmol/L (136-145)
[2021-02-13 05:10] LABS: Differential Comment SCANNED
[2021-02-13] MEDS: Menthol/Lanolin/Calamine/Znox 113 GM Tube 1 APPLIC TOPICAL ×3 (05:36→20:51)
--- NOTE | 2021-02-13 07:01 | PCM.PN.INT ---
Assessment & Plan Assessment/Plan (1) Acute respiratory failure with hypoxia: (2) Pneumonia due to COVID-19 virus: PLAN: RECOMMENDATIONS: 1. Continue to wean supplemental oxygen to maintain saturations at or above 90%. Spontaneous breathing and awakening trials per protocol 2. We will hold on additional IV Lasix as long as pressors are requirement 3. Dietary advancement per surgery as tolerated. 4. Continue antimicrobials per surgery 5. Wean pressors as tolerated with map goal of 65 6. Await sputum culture. IMPRESSIONS: 1. Acute hypoxemic respiratory failure secondary to COVID-19 pneumonia The patient presented to the hospital with progressive Covid symptoms after having been initially diagnosed at the end of December. He was therefore outside of the window for remdesivir. CTA chest showed no evidence for pulmonary embolism. The patient was emergently intubated in the emergency department. The patient has completed his treatment courses for his Covid. He remains on antimicrobials for the MSSA isolated from his sputum. The patient improved from a respiratory perspective and was able to be extubated on February 06. On 02/12/2021, patient with subsequent respiratory failure following surgery. Patient with significant secretions noted. Clinical suspicion for systemic inflammatory response. Patient is on Zosyn at this time. Patient still on significant amount of pressors. If this can be improved, spontaneous breathing and awakening trials could be considered. Would like to extubate patient prior to any thoracentesis to minimize risk 2. Bowel perforation s/p exploratory laparotomy with right hemicolectomy for ischemic complicated by evisceration with anastomotic leak POD 1 Patient back from surgery on 02/12/2021 secondary to evisceration with anastomotic leak and subsequent septic shock. Patient's pressors have improved, but are still significant. We will continue with volume optimization and antibiotics. Patient remains on Zosyn therapy. This should provide significant coverage, but will need to extend stop date beyond previous target. 3. Acute kidney injury Resolved. Likely prerenal in etiology. We will have to watch closely given the development of septic shock secondary to problem #2.. Creatinine has subsequently normalized. We will continue to monitor urine output. 4. Obesity/hypertension/hyperlipidemia Complicates care, management, recovery and prognosis. Continue home medications as indicated. TIME: 33 minutes critical care time spent addressing patient's septic shock, acute hypoxic respiratory failure, bowel evisceration with anastomotic leak, review of all data and collaboration with care team (6 AM to 7 AM) Subjective Subjective Patient did okay overnight. Patient still requiring significant Levophed to maintain saturations. Nursing had reported significant endotracheal secretions. This was sent for culture. Oxygenation has been stable, but patient has been tachycardic. Patient was taken off of propofol and tolerating well. Patient denies any pain at this time. Patient is reporting some dry mouth. Objective Data Objective Data Vital Signs: Vital Signs Temp Pulse Resp BP Pulse Ox 37.6 C H 113 H 19 H 107/88 H 94 02/13/21 00:00 02/13/21 06:00 02/13/21 06:00 02/13/21 06:00 02/13/21 06:00 Oxygen Flow Rate (L/min) 93 Oxygen Delivery Method Mechanical Ventilator Weight: 88.1 kg Body Mass Index (BMI) 27.1 Intake & Output: Intake and Output for Last 24 Hours 02/11/21 02/12/21 02/13/21 23:59 23:59 23:59 Intake Total 1635.75 / 1635.75 1065.27 / 1084.35 380.11 / 380.11 Output Total 2550 / 2550 1200 / 1350 350 / 350 Balance -914.25 / -914.25 -134.73 / -265.65 30.11 / 30.11 Lab / Micro Data Result Diagrams: 02/13/21 04:15 02/13/21 04:15 Labs: Laboratory Results - last 24 hr 02/12/21 13:03: POC Glucose 160 H 02/12/21 16:15: POC Glucose 166 H 02/12/21 21:41: POC Glucose 182 H 02/13/21 04:15: WBC 20.6 H, RBC 3.52 L, Hgb 11.7 L, Hct 34.0 L, MCV 96.6 H, MCH 33.2 H, MCHC 34.4, RDW Std Deviation 45.6 H, RDW Coeff of [place]anca 13.2, Plt Count 407, MPV 9.8, Immature Gran % (Auto) 1.000 H, Neut % (Auto) 86.4 H, Lymph % (Auto) 7.5 L, [place] % (Auto) 4.5, Eos % (Auto) 0.0, Baso % (Auto) 0.6, Absolute Neuts (auto) 17.8 H, Absolute Lymphs (auto) 1.54, Nucleated RBC % 0, Differential Comment SCANNED 02/13/21 04:15: Sodium 136, Potassium 4.0, Chloride 100, Carbon Dioxide 26.0, Anion Gap 10, BUN 44 H, Creatinine 1.44 H, Estim Creat Clear Calc 61.26, Est GFR (MDRD) Af Amer 66, Est GFR (MDRD) Non-Af 54 L, BUN/Creatinine Ratio 30.6 H, Glucose 190 H, Calcium 8.0 L Micro: Microbiology 02/07/21 18:00 Stool Stool Occult Blood (MATILDA) - Final Occult Blood Positive 02/05/21 09:31 Sputum, Induced/Lukens Gram Stain - Final 02/05/21 09:31 Sputum, Induced/Lukens Respiratory Culture - Final Staphylococcus aureus 02/01/21 11:25 Blood Culture (Wb) - Central Line Blood Culture - Final No growth in 5 days. 02/01/21 11:45 Blood Culture (Wb) - Left Wrist Blood Culture - Final No growth in 5 days. 02/01/21 11:30 Sputum, Induced/Lukens Gram Stain - Final 02/01/21 11:30 Sputum, Induced/Lukens Respiratory Culture - Final Staphylococcus aureus 01/27/21 18:30 Blood Culture (Wb) - Anticubital Left Blood Culture - Final No growth in 5 days. 01/27/21 18:33 Blood Culture (Wb) - Central Line Blood Culture - Final No growth in 5 days. 01/30/21 13:20 Stool C. difficile DNA Amplification - Final 01/28/21 08:20 Sputum, Induced/Lukens Gram Stain - Final 01/28/21 08:20 Sputum, Induced/Lukens Respiratory Culture - Final Mixed normal respiratory eulalia. No Streptococcus pneumoniae, beta-hemolytic Streptococcus or Staphylococcus aureus isolated. 01/27/21 21:40 Urine Catheter - Catheter Urine Culture - Final Culture exhibits no growth. 01/27/21 19:30 Mucosa - Nose Respiratory Panel (PCR) - Final 01/27/21 19:25 Urine Catheter - Catheter Legionella Antigen - Final 01/27/21 19:25 Urine Catheter - Catheter Streptococcus pneumoniae Antigen (M - Final Radiography Diagnostic Testing: Radiology Impression Chest X-Ray 02/12/21 11:35 IMPRESSION: Significant interval worsening since the previous study. Significant opacification pleural thickening now noted throughout the right hemithorax with very little normal-appearing right lung noted. Findings suggest progression of opacifications and likely effusions. Left lung shows persistent interstitial and airspace opacifications Electronically Signed: Juan Zimmerman MD at 12:54 EDT , Service support , KUB X-Ray 02/12/21 11:35 IMPRESSION: OG/NG tube tip in the body the stomach Electronically Signed: Juan Zimmerman MD at 12:51 EDT , Service support , Physical Exam Const General Appearance: lethargic, intubated and patient mechanically ventilated Nutritional Appearance: obese HEENT normocephalic and head/scalp atraumatic Eyes PERRL, EOMs intact bilaterally and conjunctivae normal Neck supple General: trachea midline and CVC in place Chest Chest Narrative: Decreased excursion of the right chest Chest: Negative for symmetrical chest wall rise or crepitus Resp Auscultation: rhonchi and diminished lung sounds; Negative for rales or wheezes Cardio regular rate and regular rhythm GI GI Narrative: Open bowel wound. New ostomy with some output noted. Inspection: ostomy present Auscultation: hypoactive bowel sounds Extremity no clubbing, cyanosis or edema Skin no rashes or lesions noted Neuro moves all extremities and no focal motor deficits Psych cooperative Charges/Coding Procedures Hospitalists Procedures: [id number] Critial Care 1st Hr
--- NOTE | 2021-02-13 08:22 | PCM.PN.SRG ---
Subjective Subjective Patient reports no abdominal pain Objective Data Objective Data Vital Signs: Vital Signs Temp Pulse Resp BP Pulse Ox 99.6 F H 121 H 20 H 113/81 H 93 02/13/21 00:00 02/13/21 07:45 02/13/21 07:28 02/13/21 07:00 02/13/21 07:28 Oxygen Flow Rate (L/min) 93 Oxygen Delivery Method Mechanical Ventilator Weight: 194 lb 3.636 oz Body Mass Index (BMI) 27.1 Intake & Output: Intake and Output for Last 24 Hours 02/11/21 02/12/21 02/13/21 23:59 23:59 23:59 Intake Total 1635.75 / 1635.75 1065.27 / 1084.35 437.01 / 437.01 Output Total 2550 / 2550 1200 / 1350 350 / 350 Balance -914.25 / -914.25 -134.73 / -265.65 87.01 / 87.01 Lab / Micro Data Result Diagrams: 02/13/21 04:15 02/13/21 04:15 Labs: Laboratory Results - last 24 hr 02/12/21 13:03: POC Glucose 160 H 02/12/21 16:15: POC Glucose 166 H 02/12/21 21:41: POC Glucose 182 H 02/13/21 04:15: WBC 20.6 H, RBC 3.52 L, Hgb 11.7 L, Hct 34.0 L, MCV 96.6 H, MCH 33.2 H, MCHC 34.4, RDW Std Deviation 45.6 H, RDW Coeff of Blanca 13.2, Plt Count 407, MPV 9.8, Immature Gran % (Auto) 1.000 H, Neut % (Auto) 86.4 H, Lymph % (Auto) 7.5 L, [place] % (Auto) 4.5, Eos % (Auto) 0.0, Baso % (Auto) 0.6, Absolute Neuts (auto) 17.8 H, Absolute Lymphs (auto) 1.54, Nucleated RBC % 0, Differential Comment SCANNED 02/13/21 04:15: Sodium 136, Potassium 4.0, Chloride 100, Carbon Dioxide 26.0, Anion Gap 10, BUN 44 H, Creatinine 1.44 H, Estim Creat Clear Calc 61.26, Est GFR (MDRD) Af Amer 66, Est GFR (MDRD) Non-Af 54 L, BUN/Creatinine Ratio 30.6 H, Glucose 190 H, Calcium 8.0 L Micro: Microbiology 02/07/21 18:00 Stool Stool Occult Blood (MATILDA) - Final Occult Blood Positive 02/05/21 09:31 Sputum, Induced/Lukens Gram Stain - Final 02/05/21 09:31 Sputum, Induced/Lukens Respiratory Culture - Final Staphylococcus aureus 02/01/21 11:25 Blood Culture (Wb) - Central Line Blood Culture - Final No growth in 5 days. 02/01/21 11:45 Blood Culture (Wb) - Left Wrist Blood Culture - Final No growth in 5 days. 02/01/21 11:30 Sputum, Induced/Lukens Gram Stain - Final 02/01/21 11:30 Sputum, Induced/Lukens Respiratory Culture - Final Staphylococcus aureus 01/27/21 18:30 Blood Culture (Wb) - Anticubital Left Blood Culture - Final No growth in 5 days. 01/27/21 18:33 Blood Culture (Wb) - Central Line Blood Culture - Final No growth in 5 days. 01/30/21 13:20 Stool C. difficile DNA Amplification - Final 01/28/21 08:20 Sputum, Induced/Lukens Gram Stain - Final 01/28/21 08:20 Sputum, Induced/Lukens Respiratory Culture - Final Mixed normal respiratory eulalia. No Streptococcus pneumoniae, beta-hemolytic Streptococcus or Staphylococcus aureus isolated. 01/27/21 21:40 Urine Catheter - Catheter Urine Culture - Final Culture exhibits no growth. 01/27/21 19:30 Mucosa - Nose Respiratory Panel (PCR) - Final 01/27/21 19:25 Urine Catheter - Catheter Legionella Antigen - Final 01/27/21 19:25 Urine Catheter - Catheter Streptococcus pneumoniae Antigen (M - Final Radiography Diagnostic Testing: Radiology Impression Chest X-Ray 02/12/21 11:35 IMPRESSION: Significant interval worsening since the previous study. Significant opacification pleural thickening now noted throughout the right hemithorax with very little normal-appearing right lung noted. Findings suggest progression of opacifications and likely effusions. Left lung shows persistent interstitial and airspace opacifications Electronically Signed: Juan Zimmerman MD at 12:54 EDT , Service support , KUB X-Ray 02/12/21 11:35 IMPRESSION: OG/NG tube tip in the body the stomach Electronically Signed: Juan Zimmerman MD at 12:51 EDT , Service support , Physical Exam Const Constitutional Narrative: Patient is alert and on the ventilator but making communication reporting no pain. Cardio Rate: tachycardic GI soft to palpation and non-tender Assessment & Plan Assessment/Plan (1) Anastomotic leak of intestine: (2) Evisceration of bowel: PLAN: Patient was taken back to surgery yesterday and found to have evisceration of the bowel as well as an anastomotic leak at the ileocolic anastomosis. This was resected and and an ileostomy was created. Patient is having some stool from the ileostomy and it is pink. Incision is sutured and packed. Change dressings and packings twice daily and continue to await more significant bowel function and possible extubation. Patient's white count and creatinine is higher today. Jesús Wood MD Pager: [facility] [address] [place] [address], [address] [place] [address] Office:
--- NOTE | 2021-02-13 08:40 | WOUNDNOTE ---
There is a small amount of unformed brown/green stool noted in the ileostomy appliance. appliance is intact. no leaks noted. will monitor. pt remains intubated, but able to shake head when asked questions. pt denies abdominal pain at this time. will monitor and educate patient on ileostomy.
[2021-02-13] MEDS: Insulin Lispro 100 UNIT/ML INSULN.PEN SC ×4 (08:43→21:16)
[2021-02-13] MEDS: Furosemide 40 MG/4 ML Vial IV ×2 (08:45→18:26)
[2021-02-13] MEDS: Enoxaparin 30 MG/0.3 ML Syringe SC ×2 (08:47→20:51)
--- NOTE | 2021-02-13 08:53 | WOUNDNOTE ---
wound photo: abdomen
[2021-02-13] MEDS: CHLORHEXIDINE GLUC 2% CLOTH 1 EACH TOWELETTE TOPICAL (08:56)
[2021-02-13] MEDS: Chlorhexidine 15 ML PO ×2 (08:56→20:50)
--- NOTE | 2021-02-13 10:09 | PCM.PN.HOSP ---
Subjective Subjective Intubated but alert, was not extubated today secondary to the requirement for high-dose Levophed Objective Data Objective Data Vital Signs: Vital Signs Temp Pulse Resp BP Pulse Ox 99.6 F H 77 17 96/64 93 02/13/21 00:00 02/13/21 09:51 02/13/21 08:00 02/13/21 09:51 02/13/21 07:28 Oxygen Flow Rate (L/min) 93 Oxygen Delivery Method Mechanical Ventilator Weight: 194 lb 3.636 oz Body Mass Index (BMI) 27.1 Intake & Output: Intake and Output for Last 24 Hours 02/12/21 02/13/21 02/14/21 03:59 03:59 03:59 Intake Total 1485.75 / 1485.75 1205.86 / 1272.16 276.42 / 276.42 Output Total 1650 / 1650 1350 / 1350 200 / 200 Balance -164.25 / -164.25 -144.14 / -77.84 76.42 / 76.42 Lab / Micro Data Result Diagrams: 02/13/21 04:15 02/13/21 04:15 Labs: Laboratory Results - last 24 hr 02/12/21 13:03: POC Glucose 160 H 02/12/21 16:15: POC Glucose 166 H 02/12/21 21:41: POC Glucose 182 H 02/13/21 04:15: WBC 20.6 H, RBC 3.52 L, Hgb 11.7 L, Hct 34.0 L, MCV 96.6 H, MCH 33.2 H, MCHC 34.4, RDW Std Deviation 45.6 H, RDW Coeff of Blanca 13.2, Plt Count 407, MPV 9.8, Immature Gran % (Auto) 1.000 H, Neut % (Auto) 86.4 H, Lymph % (Auto) 7.5 L, [place] % (Auto) 4.5, Eos % (Auto) 0.0, Baso % (Auto) 0.6, Absolute Neuts (auto) 17.8 H, Absolute Lymphs (auto) 1.54, Nucleated RBC % 0, Differential Comment SCANNED 02/13/21 04:15: Sodium 136, Potassium 4.0, Chloride 100, Carbon Dioxide 26.0, Anion Gap 10, BUN 44 H, Creatinine 1.44 H, Estim Creat Clear Calc 61.26, Est GFR (MDRD) Af Amer 66, Est GFR (MDRD) Non-Af 54 L, BUN/Creatinine Ratio 30.6 H, Glucose 190 H, Calcium 8.0 L Micro: Microbiology 02/07/21 18:00 Stool Stool Occult Blood (MATILDA) - Final Occult Blood Positive 02/05/21 09:31 Sputum, Induced/Lukens Gram Stain - Final 02/05/21 09:31 Sputum, Induced/Lukens Respiratory Culture - Final Staphylococcus aureus 02/01/21 11:25 Blood Culture (Wb) - Central Line Blood Culture - Final No growth in 5 days. 02/01/21 11:45 Blood Culture (Wb) - Left Wrist Blood Culture - Final No growth in 5 days. 02/01/21 11:30 Sputum, Induced/Lukens Gram Stain - Final 02/01/21 11:30 Sputum, Induced/Lukens Respiratory Culture - Final Staphylococcus aureus 01/27/21 18:30 Blood Culture (Wb) - Anticubital Left Blood Culture - Final No growth in 5 days. 01/27/21 18:33 Blood Culture (Wb) - Central Line Blood Culture - Final No growth in 5 days. 01/30/21 13:20 Stool C. difficile DNA Amplification - Final 01/28/21 08:20 Sputum, Induced/Lukens Gram Stain - Final 01/28/21 08:20 Sputum, Induced/Lukens Respiratory Culture - Final Mixed normal respiratory eulalia. No Streptococcus pneumoniae, beta-hemolytic Streptococcus or Staphylococcus aureus isolated. 01/27/21 21:40 Urine Catheter - Catheter Urine Culture - Final Culture exhibits no growth. 01/27/21 19:30 Mucosa - Nose Respiratory Panel (PCR) - Final 01/27/21 19:25 Urine Catheter - Catheter Legionella Antigen - Final 01/27/21 19:25 Urine Catheter - Catheter Streptococcus pneumoniae Antigen (M - Final Radiography Diagnostic Testing: Radiology Impression Chest X-Ray 02/12/21 11:35 IMPRESSION: Significant interval worsening since the previous study. Significant opacification pleural thickening now noted throughout the right hemithorax with very little normal-appearing right lung noted. Findings suggest progression of opacifications and likely effusions. Left lung shows persistent interstitial and airspace opacifications Electronically Signed: Juan Zimmerman MD at 12:54 EDT , Service support , KUB X-Ray 02/12/21 11:35 IMPRESSION: OG/NG tube tip in the body the stomach Electronically Signed: Juan Zimmerman MD at 12:51 EDT , Service support , Physical Exam Const General Appearance: intubated and patient mechanically ventilated HEENT normocephalic and moist oral mucous membranes Eyes PERRL, EOMs intact bilaterally and conjunctivae normal Neck supple and no JVD Resp normal respiratory effort, no retractions and no use of accessory muscles Auscultation: rhonchi and diminished lung sounds; Negative for crackles, rales or wheezes Cardio regular rate, regular rhythm, S1 normal heart sound, S2 normal heart sound and no murmurs GI soft to palpation, non-tender and non-distended; Negative for hepatosplenomegaly Extremity no clubbing, cyanosis or edema Skin no rashes or lesions noted Neuro no focal motor deficits and no sensory deficits noted Psych Appearance: appropriate and intubated Mood & Affect: flat affect Assessment & Plan Assessment/Plan (1) Acute respiratory failure with hypoxia: PLAN: 1. Acute hypoxic respiratory failure ?Secondary to SARS-CoV-2 pneumonia. Patient admitted to the intensive care unit placed on ventilator. Patient was outside the window for remdesivir. Was started on Decadron. Did receive a dose of Tocilizumab -02/06/2021; weaned off the vent - 02/07/2021; patient was placed back on BiPAP following prolonged coughing episode complicated by desaturation.Patient was placed empirically on vancomycin after his cultures came back positive for staph final identification and sensitivities pending 02/08/2021: Continue with air Vo. 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 Needs to wear BiPAP at night and this was discussed. Continue with Lasix twice daily -02/11/2021: Continue to wean oxygen -02/12/2021: We will continue to wean oxygen though he does need to go back to the OR today for fascial closure and may need to be intubated secondary to his respiratory status with Covid -02/13/2021: Remains intubated today secondary to high pressor requirement but off sedation 2. Severe sepsis ?Secondary to SARS-CoV-2 pneumonia with superimposed bacterial pneumonia (staph pneumonia) as well as perforated cecum. Patient did receive IV fluid resuscitation and subsequently started on broad-spectrum antibiotic therapy with Zosyn and vancomycin with consultation placed to ID 02/08/2021: Continue with IV antibiotics, sputum culture with MSSA 02/11/2021: We will complete Zosyn tomorrow for a 10-day course. 02/12/2021: May need to continue his Zosyn for another 24 hours secondary to the needing to go back to the OR today for fascial closure -02/13/2021: Though he has completed Zosyn for his MSSA pneumonia, he did have to have repeat surgery yesterday. We will continue 3. Perforated cecum with very dilated ascending and transverse colon ?Patient underwent exploratory laparotomy with extended right hemicolectomy on 02/04/[address] Wood -02/06/2021 postoperative day 2. Patient complains of some abdominal discomfort his surgical incision however remains clean dry and intact -02/07/2021. Patient has return of bowel function plan is for patient to be started on oral diet once he passes his bedside swallow eval 02/08/2021: Continue with IV Zosyn to cover both MSSA as well as his perforated cecum. Continue to evaluate with speech therapy, he did fail yesterday 02/10/2021: Was evaluated by speech therapy in the past, he is clear to take clear liquids. 02/12/2021: See #2 02/13/2021: Status post evisceration and anastomotic leak repair with ileostomy on 02/12/2021 4. Hyperglycemia ?Secondary to chronic steroid use Patient is currently on long-acting insulin in addition to sliding scale coverage 5. Essential hypertension ?Blood pressure on the low side patient antihypertensives never restarted 6. Dyslipidemia ?On statin therapy prior to admission DVT: Lovenox Charges/Coding Visit Charges Inpatient E&M: 33133 Subs Hosp L2
[2021-02-13 11:00] LABS: Bedside Glucose 224 mg/dL (70-110)
--- NOTE | 2021-02-13 11:16 | CASEMGMT ---
SW participated in ICU rounds, pt remains on the vent, awake during rounds. SW let pt know that a bed continues to be available for him in TCU should it be needed. SW will continue to follow. CAROLYNN Pizarro
--- NOTE | 2021-02-13 12:14 | CHAPLAIN ---
Type of Pastoral Visit _x__ Initial Visit ___ Follow-up Visit ___ On-call Visit ___ General Patient Visit ___ Spiritual Assessment ___ Family Conference ___ Bereavement ___ Rapid Response ___ Code Blue ___ Other (describe below) Pastoral Care Referral From ___ Patient ___ Family _x__ Nurse ___ Physician ___ Apparel Manager ___ Industrial Controller ___ Other (describe below) Sacrament/Intervention ___ Active listening ___ Anointing ___ Religious ___ Bereavement ___ Communion ___ Lisha exploration ___ ___ Life review _x__ Prayer ___ Reconciliation ___ Sacrament of Sick _x__ Supportive presence ___ Wedding ___ Other (describe below) Pastoral Comments patient is on vent but is awake; pt gives thumbs up sign when questioned; pt welcomes presence and prayer support; pt is a readmission for different reason and staff RNs seeking extra support for pt emotionally
[2021-02-13 16:51] LABS: Bedside Glucose 193 mg/dL (70-110)
[2021-02-13] MEDS: MELATONIN 3 MG TABLET PO (20:52)
[2021-02-13 21:05] LABS: Bedside Glucose 215 mg/dL (70-110)
[2021-02-14] VITALS (50 sets, daily range): BP systolic 53–142; BP diastolic 41–88; PULSE 80–120; RESP 14–33; TEMP 36.1–37.2; O2SAT 3–100
[2021-02-14 03:08] LABS: Absolute Lymphocyte Count 1.63 X10^3/uL (0.83-4.51); Absolute Neutrophil Count 15.9 X10^3/uL (2.0-7.7); Basophil# 0.04 X10^3/uL; Basophil% 0.2 % (0-1); Eosinophil# 0.01 X10^3/uL; Eosinophils% 0.1 % (0-5); Hematocrit 28.9 % (40-54); Hemoglobin 9.9 g/dL (13.0-16.5); Lymphocyte # 1.63 X10^3/ul (0.83-4.51); Lymphocyte % 8.7 % (19-41); Mean Corp Hgb Conc 34.3 g/dL (32-36); Mean Corpuscular Hgb 33.7 pg (27.0-32.0); Mean Corpuscular Volume 98.3 fL (80-94); Mean Platelet Vol. 10.1 fl (6.2-12.0); Monocyte# 1.04 X10^3/uL; Monocyte% 5.5 % (0-10); NRBC Flagged by Analyzer 0 % (0-5); Neutrophil # 15.91 X10^3/uL (2.7-7.7); Neutrophil % 84.4 % (47-70); POSITIVE MORPHOLOGY YES; Platelet Count 337 K/mm3 (150-450); RBC Distribution Width CV 13.9 % (11.6-14.6); RBC Distribution Width SD 49.4 fl (35.1-43.9); Red Blood Count 2.94 M/mm3 (4.6-6.2); White Blood Count 18.8 K/mm3 (4.4-11.0)
[2021-02-14 03:11] LABS: Differential Indicated SCAN CRITERIA MET
[2021-02-14 03:21] LABS: ALB/GLOB Ratio 0.4 RATIO (0.9-2.4); AST(SGOT) 237 U/L (15-37); Alanine Aminotransfer ALT/SGPT 430 U/L (16-61); Albumin, Serum 1.7 g/dL (3.2-5.0); Alkaline Phosphatase 93 U/L (45-117); Anion Gap 8 (5-15); BUN 56 mg/dL (7-18); BUN/Creat Ratio 36.6 RATIO (10-20); Calcium,Total 8.2 mg/dL (8.5-10.1); Chloride 105 mmol/L (98-107); Creatinine, Serum 1.53 mg/dL (0.70-1.30); EST Glomerular Filtration Rate 51 mL/min (>60); Est Glom Filt Rate - Afr Amer 61 mL/min (>60); Estimated Creatinine Clearance 57.65 ml/min; Globulin 4.1 g/dL (2.2-4.2); Glucose 184 mg/dL (74-106); Potassium 3.5 mmol/L (3.5-5.1); Protein, Total 5.8 g/dL (6.4-8.2); Sodium Level 141 mmol/L (136-145)
[2021-02-14 04:03] LABS: Differential Comment SCANNED
[2021-02-14] MEDS: TITRATION PARAMETER CHANGE 1 EACH IV (05:37)
[2021-02-14 06:11] LABS: Allen Test Positive; Base Excess 0 mmol/L (-2 to +2); Bicarbonate 24.8 mmol/L (22-26); Blood Gas Specimen Type ART; FI02 40; Mode CPAP/PS; O2 Delivery Device Adult Vent; PEEP 5; PO2 49 mmHG (75-100); PS 5; SITE R Radial; SO2 86 % (95-99); Total Carbon Dioxide 26 mmol/L; pCO2 37.9 mmHg (35-45); pH 7.43 (7.35-7.45)
[2021-02-14] MEDS: Menthol/Lanolin/Calamine/Znox 113 GM Tube 1 APPLIC TOPICAL ×2 (06:27→13:05)
--- NOTE | 2021-02-14 07:56 | PCM.PN.INT ---
Assessment & Plan Assessment/Plan (1) Acute respiratory failure with hypoxia: (2) Pneumonia due to COVID-19 virus: PLAN: RECOMMENDATIONS: 1. Continue to wean supplemental oxygen to maintain saturations at or above 90%. Spontaneous breathing and awakening trials per protocol 2. We will hold on additional IV Lasix as long as pressors are required 3. Dietary advancement per surgery as tolerated. Possible abdominal binder intermittently 4. Continue antimicrobials per surgery 5. Wean pressors as tolerated with map goal of 65 6. Attempt extubation before thoracentesis of possible IMPRESSIONS: 1. Acute hypoxemic respiratory failure secondary to COVID-19 pneumonia The patient presented to the hospital with progressive Covid symptoms after having been initially diagnosed at the end of December. He was therefore outside of the window for remdesivir. CTA chest showed no evidence for pulmonary embolism. The patient was emergently intubated in the emergency department. The patient has completed his treatment courses for his Covid. He remains on antimicrobials for the MSSA isolated from his sputum. The patient improved from a respiratory perspective and was able to be extubated on February 06. On 02/12/2021, patient with subsequent respiratory failure following surgery. Patient with significant secretions noted. Clinical suspicion for systemic inflammatory response. Patient is on Zosyn at this time. Patient does continue to grow MSSA from the sputum. Spontaneous awakening and breathing trials per protocol. Would like to extubate patient prior to any thoracentesis to minimize risk if possible. Will check chest x-ray in a.m. 2. Bowel perforation s/p exploratory laparotomy with right hemicolectomy for ischemic complicated by evisceration with anastomotic leak POD 2 Patient back from surgery on 02/12/2021 secondary to evisceration with anastomotic leak and subsequent septic shock. Patient's pressors have improved, but are still significant. We will continue with volume optimization and antibiotics. Patient remains on Zosyn therapy. This should provide significant coverage, but will need to extend stop date beyond previous target. 3. Acute kidney injury Likely prerenal in etiology. We will have to watch closely given the development of septic shock secondary to problem #2. Creatinine has increased slightly over the last 24 hours, but pressors are improving. Adequate urine output. We will continue to monitor urine output. 4. Obesity/hypertension/hyperlipidemia Complicates care, management, recovery and prognosis. Continue home medications as indicated. TIME: 32 minutes critical care time spent addressing patient's septic shock, acute hypoxic respiratory failure, bowel evisceration with anastomotic leak, review of all data and collaboration with care team (6:20 AM to 7:20 AM) Subjective Subjective Patient did okay overnight. Patient's Levophed requirements have significantly improved. No bleeding complications have been reported. Patient continues to have abdominal discomfort, but was able to have a spontaneous breathing trial this morning. Patient lasted an hour, but patient was tachypneic with marginal saturations. Objective Data Objective Data Vital Signs: Vital Signs Temp Pulse Resp BP Pulse Ox 37.2 C 104 H 20 H 103/68 92 02/14/21 04:00 02/14/21 07:00 02/14/21 07:00 02/14/21 07:00 02/14/21 07:00 Oxygen Flow Rate (L/min) 93 Oxygen Delivery Method Mechanical Ventilator Weight: 86.1 kg Body Mass Index (BMI) 27.1 Intake & Output: Intake and Output for Last 24 Hours 02/12/21 02/13/21 02/14/21 23:59 23:59 23:59 Intake Total 1065.27 / 1084.35 1498.15 / 1557.55 305.80 / 305.80 Output Total 1200 / 1350 1700 / 2150 800 / 800 Balance -134.73 / -265.65 -201.85 / -592.45 -494.20 / -494.20 Lab / Micro Data Result Diagrams: 02/14/21 02:55 02/14/21 02:55 Labs: Laboratory Results - last 24 hr 02/13/21 10:49: POC Glucose 224 H 02/13/21 16:34: POC Glucose 193 H 02/13/21 21:02: POC Glucose 215 H 02/14/21 02:55: WBC 18.8 H, RBC 2.94 L, Hgb 9.9 L, Hct 28.9 L, MCV 98.3 H, MCH 33.7 H, MCHC 34.3, RDW Std Deviation 49.4 H, RDW Coeff of Blanca 13.9, Plt Count 337, MPV 10.1, Immature Gran % (Auto) 1.100 H, Neut % (Auto) 84.4 H, Lymph % (Auto) 8.7 L, [place] % (Auto) 5.5, Eos % (Auto) 0.1, Baso % (Auto) 0.2, Absolute Neuts (auto) 15.9 H, Absolute Lymphs (auto) 1.63, Nucleated RBC % 0, Differential Comment SCANNED 02/14/21 02:55: Sodium 141, Potassium 3.5, Chloride 105, Carbon Dioxide 28.0, Anion Gap 8, BUN 56 H, Creatinine 1.53 H, Estim Creat Clear Calc 57.65, Est GFR (MDRD) Af Amer 61, Est GFR (MDRD) Non-Af 51 L, BUN/Creatinine Ratio 36.6 H, Glucose 184 H, Calcium 8.2 L, Total Bilirubin 0.50, AST 237 H, ALT 430 H, Alkaline Phosphatase 93, Total Protein 5.8 L, Albumin 1.7 L, Globulin 4.1, Albumin/Globulin Ratio 0.4 L Micro: Microbiology 02/13/21 06:00 Sputum, Induced/Lukens Gram Stain - Final 02/07/21 18:00 Stool Stool Occult Blood (MATILDA) - Final Occult Blood Positive 02/05/21 09:31 Sputum, Induced/Lukens Gram Stain - Final 02/05/21 09:31 Sputum, Induced/Lukens Respiratory Culture - Final Staphylococcus aureus 02/01/21 11:25 Blood Culture (Wb) - Central Line Blood Culture - Final No growth in 5 days. 02/01/21 11:45 Blood Culture (Wb) - Left Wrist Blood Culture - Final No growth in 5 days. 02/01/21 11:30 Sputum, Induced/Lukens Gram Stain - Final 02/01/21 11:30 Sputum, Induced/Lukens Respiratory Culture - Final Staphylococcus aureus 01/27/21 18:30 Blood Culture (Wb) - Anticubital Left Blood Culture - Final No growth in 5 days. 01/27/21 18:33 Blood Culture (Wb) - Central Line Blood Culture - Final No growth in 5 days. 01/30/21 13:20 Stool C. difficile DNA Amplification - Final 01/28/21 08:20 Sputum, Induced/Lukens Gram Stain - Final 01/28/21 08:20 Sputum, Induced/Lukens Respiratory Culture - Final Mixed normal respiratory eulalia. No Streptococcus pneumoniae, beta-hemolytic Streptococcus or Staphylococcus aureus isolated. 01/27/21 21:40 Urine Catheter - Catheter Urine Culture - Final Culture exhibits no growth. 01/27/21 19:30 Mucosa - Nose Respiratory Panel (PCR) - Final 01/27/21 19:25 Urine Catheter - Catheter Legionella Antigen - Final 01/27/21 19:25 Urine Catheter - Catheter Streptococcus pneumoniae Antigen (M - Final ABG Data ABG results: ABG 02/14/21 06:04 Specimen Type ART Sample Site R Radial pH 7.43 Bicarbonate Actual 24.8 Total CO2 26 Base Excess 0 O2 Saturation 86 L O2 % 40 ABG pCO2 37.9 ABG pO2 49 L Patrick Test Positive O2 Delivery Device Adult Vent Vent Mode CPAP/PS POC PEEP 5 POC Pressure Suppt 5 Physical Exam Const General Appearance: lethargic, intubated and patient mechanically ventilated Nutritional Appearance: obese HEENT normocephalic and head/scalp atraumatic Eyes PERRL, EOMs intact bilaterally and conjunctivae normal Neck supple General: trachea midline and CVC in place Chest Chest Narrative: Decreased excursion of the right chest Chest: Negative for symmetrical chest wall rise or crepitus Resp Auscultation: rhonchi and diminished lung sounds; Negative for rales or wheezes Cardio regular rate and regular rhythm GI GI Narrative: Open bowel wound. New ostomy with some output noted. Inspection: ostomy present Auscultation: hypoactive bowel sounds Extremity no clubbing, cyanosis or edema Skin no rashes or lesions noted Neuro moves all extremities and no focal motor deficits Psych cooperative Charges/Coding Procedures Hospitalists Procedures: 02019 Critial Care 1st Hr
[2021-02-14] MEDS: Chlorhexidine 15 ML PO ×2 (09:21→22:40)
[2021-02-14] MEDS: CHLORHEXIDINE GLUC 2% CLOTH 1 EACH TOWELETTE TOPICAL (09:23)
[2021-02-14] MEDS: Insulin Lispro 100 UNIT/ML INSULN.PEN SC ×4 (09:23→23:28)
[2021-02-14] MEDS: Enoxaparin 30 MG/0.3 ML Syringe SC ×2 (09:25→23:37)
[2021-02-14] MEDS: Furosemide 40 MG/4 ML Vial IV ×2 (09:25→16:07)
--- NOTE | 2021-02-14 09:44 | PCM.PN.HOSP ---
Subjective Subjective He was able to pass a spontaneous breathing trial today however he was tachypneic and noted to tachycardic therefore he was given another day on the ventilator Objective Data Objective Data Vital Signs: Vital Signs Temp Pulse Resp BP Pulse Ox 98.9 F 104 H 20 H 103/68 92 02/14/21 04:00 02/14/21 07:00 02/14/21 07:00 02/14/21 07:00 02/14/21 07:00 Oxygen Flow Rate (L/min) 93 Oxygen Delivery Method Mechanical Ventilator Weight: 189 lb 13.088 oz Body Mass Index (BMI) 27.1 Intake & Output: Intake and Output for Last 24 Hours 02/13/21 02/14/21 02/15/21 03:59 03:59 03:59 Intake Total 1205.86 / 1272.16 1505.16 / 1564.56 108.2 / 108.2 Output Total 1350 / 1350 1999 / 1999 350 / 350 Balance -144.14 / -77.84 -494.84 / -435.44 -241.8 / -241.8 Lab / Micro Data Result Diagrams: 02/14/21 02:55 02/14/21 02:55 Labs: Laboratory Results - last 24 hr 02/13/21 10:49: POC Glucose 224 H 02/13/21 16:34: POC Glucose 193 H 02/13/21 21:02: POC Glucose 215 H 02/14/21 02:55: WBC 18.8 H, RBC 2.94 L, Hgb 9.9 L, Hct 28.9 L, MCV 98.3 H, MCH 33.7 H, MCHC 34.3, RDW Std Deviation 49.4 H, RDW Coeff of Blanca 13.9, Plt Count 337, MPV 10.1, Immature Gran % (Auto) 1.100 H, Neut % (Auto) 84.4 H, Lymph % (Auto) 8.7 L, [place] % (Auto) 5.5, Eos % (Auto) 0.1, Baso % (Auto) 0.2, Absolute Neuts (auto) 15.9 H, Absolute Lymphs (auto) 1.63, Nucleated RBC % 0, Differential Comment SCANNED 02/14/21 02:55: Sodium 141, Potassium 3.5, Chloride 105, Carbon Dioxide 28.0, Anion Gap 8, BUN 56 H, Creatinine 1.53 H, Estim Creat Clear Calc 57.65, Est GFR (MDRD) Af Amer 61, Est GFR (MDRD) Non-Af 51 L, BUN/Creatinine Ratio 36.6 H, Glucose 184 H, Calcium 8.2 L, Total Bilirubin 0.50, AST 237 H, ALT 430 H, Alkaline Phosphatase 93, Total Protein 5.8 L, Albumin 1.7 L, Globulin 4.1, Albumin/Globulin Ratio 0.4 L Micro: Microbiology 02/13/21 06:00 Sputum, Induced/Lukens Gram Stain - Final 02/07/21 18:00 Stool Stool Occult Blood (MATILDA) - Final Occult Blood Positive 02/05/21 09:31 Sputum, Induced/Lukens Gram Stain - Final 02/05/21 09:31 Sputum, Induced/Lukens Respiratory Culture - Final Staphylococcus aureus 02/01/21 11:25 Blood Culture (Wb) - Central Line Blood Culture - Final No growth in 5 days. 02/01/21 11:45 Blood Culture (Wb) - Left Wrist Blood Culture - Final No growth in 5 days. 02/01/21 11:30 Sputum, Induced/Lukens Gram Stain - Final 02/01/21 11:30 Sputum, Induced/Lukens Respiratory Culture - Final Staphylococcus aureus 01/27/21 18:30 Blood Culture (Wb) - Anticubital Left Blood Culture - Final No growth in 5 days. 01/27/21 18:33 Blood Culture (Wb) - Central Line Blood Culture - Final No growth in 5 days. 01/30/21 13:20 Stool C. difficile DNA Amplification - Final 01/28/21 08:20 Sputum, Induced/Lukens Gram Stain - Final 01/28/21 08:20 Sputum, Induced/Lukens Respiratory Culture - Final Mixed normal respiratory eulalia. No Streptococcus pneumoniae, beta-hemolytic Streptococcus or Staphylococcus aureus isolated. 01/27/21 21:40 Urine Catheter - Catheter Urine Culture - Final Culture exhibits no growth. 01/27/21 19:30 Mucosa - Nose Respiratory Panel (PCR) - Final 01/27/21 19:25 Urine Catheter - Catheter Legionella Antigen - Final 01/27/21 19:25 Urine Catheter - Catheter Streptococcus pneumoniae Antigen (M - Final ABG Data ABG results: ABG 10/27/21 06:04 Specimen Type ART Sample Site R Radial pH 7.43 Bicarbonate Actual 24.8 Total CO2 26 Base Excess 0 O2 Saturation 86 L O2 % 40 ABG pCO2 37.9 ABG pO2 49 L Patrick Test Positive O2 Delivery Device Adult Vent Vent Mode CPAP/PS POC PEEP 5 POC Pressure Suppt 5 Physical Exam Const alert and no apparent distress General Appearance: intubated and patient mechanically ventilated HEENT normocephalic and moist oral mucous membranes Eyes PERRL, EOMs intact bilaterally and conjunctivae normal Neck supple and no JVD Resp normal respiratory effort, no retractions and no use of accessory muscles Auscultation: rhonchi and diminished lung sounds; Negative for crackles, rales or wheezes Cardio regular rate, regular rhythm, S1 normal heart sound, S2 normal heart sound and no murmurs GI soft to palpation, non-tender and non-distended; Negative for hepatosplenomegaly GI Narrative: Ostomy intact Extremity no clubbing, cyanosis or edema Skin no rashes or lesions noted Neuro no focal motor deficits and no sensory deficits noted Psych Appearance: appropriate and intubated Mood & Affect: flat affect Assessment & Plan Assessment/Plan (1) Acute respiratory failure with hypoxia: PLAN: 1. Acute hypoxic respiratory failure ?Secondary to SARS-CoV-2 pneumonia. Patient admitted to the intensive care unit placed on ventilator. Patient was outside the window for remdesivir. Was started on Decadron. Did receive a dose of Tocilizumab -02/06/2021; weaned off the vent - 02/07/2021; patient was placed back on BiPAP following prolonged coughing episode complicated by desaturation.Patient was placed empirically on vancomycin after his cultures came back positive for staph final identification and sensitivities pending 02/08/2021: Continue with air Vo. Appreciate infectious disease and video presentation operator assistance 02/09/2021: Stable continue with air Vo, Will continue with Lasix as needed -02/10/2021: Currently on nasal cannula, will continue to encourage pulmonary toilet, also recommend proning when able. Needs to wear BiPAP at night and this was discussed. Continue with Lasix twice daily -02/11/2021: Continue to wean oxygen -02/12/2021: We will continue to wean oxygen though he does need to go back to the OR today for fascial closure and may need to be intubated secondary to his respiratory status with Covid -02/13/2021: Remains intubated today secondary to high pressor requirement but off sedation -02/14/2021: He is down to 5 mics per minute of Levophed however he was tachypneic and a little bit tachycardic during his spontaneous breathing trial even though he passed it therefore we will keep him intubated for another 24 hours 2. Severe sepsis ?Secondary to SARS-CoV-2 pneumonia with superimposed bacterial pneumonia (staph pneumonia) as well as perforated cecum. Patient did receive IV fluid resuscitation and subsequently started on broad-spectrum antibiotic therapy with Zosyn and vancomycin with consultation placed to ID 02/08/2021: Continue with IV antibiotics, sputum culture with MSSA 02/11/2021: We will complete Zosyn tomorrow for a 10-day course. 02/12/2021: May need to continue his Zosyn for another 24 hours secondary to the needing to go back to the OR today for fascial closure -02/13/2021: Though he has completed Zosyn for his MSSA pneumonia, he did have to have repeat surgery yesterday. We will continue 3. Perforated cecum with very dilated ascending and transverse colon ?Patient underwent exploratory laparotomy with extended right hemicolectomy on 02/04/[address] Wood -02/06/2021 postoperative day 2. Patient complains of some abdominal discomfort his surgical incision however remains clean dry and intact -02/07/2021. Patient has return of bowel function plan is for patient to be started on oral diet once he passes his bedside swallow eval 02/08/2021: Continue with IV Zosyn to cover both MSSA as well as his perforated cecum. Continue to evaluate with speech therapy, he did fail yesterday 02/10/2021: Was evaluated by speech therapy in the past, he is clear to take clear liquids. 02/12/2021: See #2 02/13/2021: Status post evisceration and anastomotic leak repair with ileostomy on 02/12/2021 -02/14/2021: Continue with Zosyn appreciate surgical assistance 4. Hyperglycemia ?Secondary to chronic steroid use Patient is currently on long-acting insulin in addition to sliding scale coverage 5. Essential hypertension ?Blood pressure on the low side patient antihypertensives never restarted 6. Dyslipidemia ?On statin therapy prior to admission DVT: Lovenox Charges/Coding Visit Charges Inpatient E&M: 29513 Subs Hosp L2
[2021-02-14 12:00] LABS: Bedside Glucose 189 mg/dL (70-110)
[2021-02-14 15:29] LABS: Hematocrit 28.7 % (40-54); Hemoglobin 9.7 g/dL (13.0-16.5)
[2021-02-14 16:16] LABS: Bedside Glucose 202 mg/dL (70-110)
--- NOTE | 2021-02-14 19:00 | EKG12_ITS ---
Test Reason : RAPID RESPONSE Blood Pressure : / mmHG Vent. Rate : 111 BPM Atrial Rate : 111 BPM P-R Int : 144 ms QRS Dur : 068 ms QT Int : 360 ms P-R-T Axes : 090 079 082 degrees QTc Int : 489 ms Sinus tachycardia with Premature atrial complexes Otherwise normal ECG When compared with ECG of 27-JAN-2021 17:53, Premature atrial complexes are now Present NV interval has increased ST no longer depressed in Lateral leads Nonspecific T wave abnormality now evident in Lateral leads Confirmed by HAZEL WILSON, CARROLL ([id number]), sports medicine physician FELIX MILES ([id number]) on 02/20/2021 12:32:05 P M Referred By: ALFRED Confirmed By:GLADYS OLIVA MD
--- NOTE | 2021-02-14 19:15 | NURSING ---
191 pt eyes rolled back in head and appeared to have seizure activity, heart rate fanny to 50's and not responsive ORCHESTRA TEACHER called. 1911 team arrives, pt remains non repsonsive. monitor sinus rate 90's [address] Augustine [address] Dr. Parra to bedside ativan 2 mg iv given
[2021-02-14] MEDS: LORazepam 2 MG/ML Syringe IV (19:16)
[2021-02-14 19:20] LABS: Absolute Lymphocyte Count 1.59 X10^3/uL (0.83-4.51); Absolute Neutrophil Count 13.1 X10^3/uL (2.0-7.7); Basophil# 0.04 X10^3/uL; Basophil% 0.3 % (0-1); Eosinophil# 0.02 X10^3/uL; Eosinophils% 0.1 % (0-5); Hematocrit 30.3 % (40-54); Hemoglobin 9.9 g/dL (13.0-16.5); Lymphocyte # 1.59 X10^3/ul (0.83-4.51); Mean Corp Hgb Conc 32.7 g/dL (32-36); Mean Corpuscular Hgb 32.8 pg (27.0-32.0); Mean Corpuscular Volume 100.3 fL (80-94); Mean Platelet Vol. 10.1 fl (6.2-12.0); Monocyte# 0.94 X10^3/uL; Monocyte% 5.9 % (0-10); NRBC Flagged by Analyzer 0.2 % (0-5); Neutrophil # 13.05 X10^3/uL (2.7-7.7); Neutrophil % 82.1 % (47-70); POSITIVE MORPHOLOGY YES; Platelet Count 390 K/mm3 (150-450); RBC Distribution Width SD 51.2 fl (35.1-43.9); Red Blood Count 3.02 M/mm3 (4.6-6.2); White Blood Count 15.9 K/mm3 (4.4-11.0)
--- NOTE | 2021-02-14 19:21 | CT_ITS ---
We are attempting to reach an attending provider to discuss findings. An addendum with communication details will be sent when the communication is complete. INDICATION: Unresponsive -- suspected seizure activity EXAMINATION: CT BRAIN - CT Head or Brain W/O Contrast Injection TECHNIQUE: Multiple axial images were obtained of the head without intravenous contrast. A radiation dose optimization technique was used for this scan. IV Contrast dosage and agent: None. COMPARISON: Chest x-ray 02/12/2021. FINDINGS: BRAIN PARENCHYMA: No intra- or extra-axial hemorrhage. No evidence of acute infarct. No intracranial mass or mass effect. There is preservation of the alcala/white matter interface. Posterior fossa structures are unremarkable. CSF SPACES: Appropriate for age. No hydrocephalus. Basal cisterns are patent. CALVARIUM, SKULL BASE, PARANASAL SINUSES AND MASTOID AIR CELLS: Clear. No discrete lytic or blastic abnormalities. ORBITS: Both globes, extraocular muscles, optic nerves and retrobulbar fat appear unremarkable. ASPECTS Score for Acute Strokes: 10 There is abnormal soft tissue gas medially anterior to the longus coli muscles likely extending from, potentially within the danger space. Correlation with contrast-enhanced CT chest and neck is recommended. CT/Brain/Head without Contrast IMPRESSION: No acute intracranial pathology. Abnormal soft tissue gas during the pharyngeal mucosal and retropharyngeal space, potentially within the danger space. Correlation with contrast-enhanced CT chest and neck is recommended Electronically Signed: Heath Shoemaker DO at 22:08 EDT Tel , Service support ,
[2021-02-14 19:23] LABS: Differential Indicated SCAN CRITERIA MET
[2021-02-14] MEDS: levETIRAcetam IV 1,000 MG/100 ML BAG 400 MG IV (19:41)
[2021-02-14 19:44] LABS: ALB/GLOB Ratio 0.4 RATIO (0.9-2.4); AST(SGOT) 1153 U/L (15-37); Alanine Aminotransfer ALT/SGPT 1142 U/L (16-61); Albumin, Serum 1.8 g/dL (3.2-5.0); Alkaline Phosphatase 112 U/L (45-117); Anion Gap 9 (5-15); BUN 62 mg/dL (7-18); BUN/Creat Ratio 33.5 RATIO (10-20); Calcium,Total 8.5 mg/dL (8.5-10.1); Chloride 106 mmol/L (98-107); Creatinine, Serum 1.85 mg/dL (0.70-1.30); EST Glomerular Filtration Rate 41 mL/min (>60); Est Glom Filt Rate - Afr Amer 49 mL/min (>60); Estimated Creatinine Clearance 47.68 ml/min; Globulin 4.6 g/dL (2.2-4.2); Glucose 236 mg/dL (74-106); Magnesium 2.8 mg/dL (1.6-2.6); Phosphorus 3.7 mg/dL (2.5-4.9); Protein, Total 6.4 g/dL (6.4-8.2); Sodium Level 142 mmol/L (136-145); Troponin-I HS 26 pg/mL (3.0-78.0)
--- NOTE | 2021-02-14 19:45 | PCM.PN.BLA ---
Progress Note Rapid response note: Rapid response was called 2 times. With the first rapid response patient who was intubated after suctioning became unresponsive. His blood pressure dropped to a map below 65. Patient was examined at bedside. At the time of my examination patient was alert but lethargic. S1-S2 was present. Left lung was clear. There was no lung sounds at the right lung. Abdomen was distended; bowel sounds was present. Ostomy bag was present. Dressing abdomen was dry and intact. Extremities with no edema, clubbing or cyanosis. An order was given to initiate vasopressin. However patient's blood pressure recovered on 20 mcg levo at that time. First rapid response ended. Just after the first rapid response ended another rapid response was called because patient became unresponsive again. Blood pressure dropped. Vasopressin was ordered. However blood pressure recovered again. Nurses to initiate vasopressin if MAP drop below 65. Nurse reported patient eyes where a rolling and probably patient had a seizure. Ativan 2 mg IV was ordered. Keppra 1000 mg IV bolus and then Keppra 500 mg twice daily ordered. Ordered to get EEG in a.m. CT head if patient blood pressure is stable and if patient does not become unresponsive.
--- NOTE | 2021-02-14 20:24 | CT_ITS ---
CT chest, abdomen and pelvis. COMPARISON: CT brain 02/14/2021 and chest x-ray 02/12/2021 TECHNIQUE: Following 100 cc of ISOVUE-370 intravenous contrast, helical CT through the chest, abdomen and pelvis are obtained. Multiplanar reconstructions are created. Coronal and sagittal maximum intensity projection images of the chest are created. CT volume of 23.38 mGy. Dose length product of 2085.33 mGy centimeters. FINDINGS: There is a large right tension pneumothorax displacing the heart into the left side of the chest. Right lung is completely collapsed. There is some fluid layering dependently within the right pleural space. Air within the right pleural space displaces are right hemidiaphragm and liver inferiorly. There is significant mass effect on the left lung from the displaced mediastinum appears relatively enlarged due to pneumomediastinum. The remaining aerated lung shows significant multifocal patchy airspace disease as can be seen with Covid pneumonia. Vascular structures and mediastinum without significant compression. No pulmonary artery filling defect to suggest pneumomediastinum though assessment is somewhat limited by motion artifact making distal segmental emboli difficult to confidently exclude. No embolism is suggested. There is significant pneumomediastinum as well as soft tissue gas around the anterior right and left sides of the thorax and extending up to the visualized portions of the neck. There is a endotracheal tube which appears well positioned. The right and left proximal mainstem bronchi are narrowed. Left mainstem bronchus measures 5 mm in diameter. Enteric tube follows the expected course of the stomach. No axillary lymphadenopathy. Osseous structures of the chest show no fracture or focal osseous lesion. No lytic or blastic bone lesion. Age expected degenerative changes distal thoracic spine are noted. Soft tissue gas extends from the lateral chest wall along the abdomen dissecting between muscle layers of the abdomen extending into the right inguinal region with a 6 cm diameter pocket of air extending into the right inguinal region. Small amount of gas is seen posterior to the pararenal fascia on the right. There is an open midline skin incision of the abdomen. There is a left mid abdomen colostomy with peripheral, thin hyperdensity likely representing sutures or possible percutaneous drain. The adjacent intra-abdominal fat shows moderate stranding density and there is moderate intra-abdominal ascites. No free air in the abdomen. Fluid in the anterior peritoneal cavity, near colostomy site appears loculated and developing abscess without rim enhancement is not excluded. Largest focal fluid pocket measures 3 cm in diameter. There is a BLANCAS catheter in a collapsed urinary bladder. Other solid organs upper abdomen have a normal CT appearance. The gallbladder is normal. Enteric tube seen in the stomach. No hiatal hernia. CT/CTA Chst, Abd, Pel W and/or WO IMPRESSION: Tension pneumothorax with completely collapsed right lung and significant mass effect on the mediastinum and right hemidiaphragm. Extensive mediastinal and soft tissue emphysema chest and abdomen with extension into superficial abdominal wall fascial planes and right inguinal canal. Abnormal stranding density or seen in the mesenteric fat around left mid abdomen colostomy site with areas of apparent loculated fluid versus potential developing abscesses. Multifocal pneumonia left lung. N.B. : The above Results were Read Back by Heath Shoemaker DO to Inez Syed RN, and understanding confirmed on 02/14/2021 22:42:51 (ET). Electronically Signed: Heath Shoemaker DO at 23:19 EDT Tel , Service support ,
[2021-02-14] MEDS: Hydrocortisone Sod Succinate 100 MG/2 ML Vial IV (22:39)
--- NOTE | 2021-02-14 23:05 | PCM.HOSP.N ---
Hospitalist Note Called to bedside by Keke COLLIER due to patient's declining condition. Keke COLLIER informed me that patient has developed crepitus in his neck and down his left arm and Dr. Valencia had previously been notified and ordered a chest/abdomen/pelvic CT. Notified by radiologist Dr. Shoemaker that patient has a right-sided tension pneumothorax as well as gas noted in the soft tissue of the neck and abdomen. After discussing case with Dr. Valencia, Dr. Wood was notified of patient's need for chest tube and CT findings. Dr. Jernigan updated on patient condition and findings along with plan of care and was agreeable.
--- NOTE | 2021-02-14 23:10 | RAD_ITS ---
HISTORY: chest tube placement EXAMINATION/TECHNIQUE: XR Chest 1 View: Portable supine AP chest x-ray COMPARISON: 02/12/21 FINDINGS: LINES/DEVICES: Endotracheal tube tip 5 cm above the bing. Enteric tube coils in the stomach. Right IJ catheter unchanged. Right-sided chest tube in place with tip at the right apex. LUNGS: Improving aeration on the left with persistent airspace disease. Decreased right pleural effusion. Small right apical and lateral pneumothorax. MEDIASTINUM AND CARDIOVASCULAR STRUCTURES: Cardiac silhouette unchanged. BONES AND SOFT TISSUES: No acute bony abnormalities. Subcutaneous emphysema along the right chest wall and neck. RAD/Chest 1 View (Portable) IMPRESSION: Small right-sided pneumothorax, right chest tube in place. Decreasing right pleural effusion. Improving aeration left lung. at 0037 Reported and signed by: Marcos Snider MD Electronically Signed: Marcos Snider MD at 0:36 EDT Tel , Service support ,
--- NOTE | 2021-02-14 23:21 | PN_ITS ---
Progress Note I was called emergently to the patient's bedside. The patient became unresponsive and required more pressors and a CT was obtained. The patient had a large tension pneumothorax on the right side with subcutaneous emphysema extending to the cervical region as well as mediastinum and subcutaneous tissue all the way to the scrotum. Right-sided percutaneous chest tube was placed to decompress the tension pneumothorax and this was converted to a 28 [place] chest tube. Chest x-ray was obtained which showed expansion of the lung but a residual small pneumothorax. Patient was turned to -40 suction. Air leak remained. Patient's blood pressure did marginally improved after chest tube was placed. Continue suction with a repeat x-ray in the morning. The lung may not fully expand due to Covid and positive pressure ventilation. Jesús Wood MD Pager: [facility] [address] [place] [address], [address] [place] [address] Office:
--- NOTE | 2021-02-14 23:28 | PCM.OPRPT ---
Problems Associated Problem List Diagnoses (1) Pneumothorax, right: Report of Operation Date of Procedure: 02/14/21 Pre-Operative Diagnosis: Right tension pneumothorax Post-Operative Diagnosis: Same Surgery/Procedure Performed:: Right chest tube placement Description of Procedure: Patient's right chest was prepped and draped in usual sterile fashion. A small area of skin was injected with local anesthetic and incision was made. Needle was placed into the right chest and the air was aspirated and a guidewire was placed through this. Percutaneous chest tube was attempted to be placed through this but was unable to be placed due to subcutaneous tissue. The guidewire and tube were removed. The incision was lengthened and hemostats were used to open the costal muscles. A 28 Kinyarwanda chest tube was placed into the right thorax and advanced and sutured to the skin using 0 silk suture. Was placed to suction. There was a large air leak and 400 cc of fluid were removed as well. It was bandage in place. Chest x-ray will be obtained. Grafts/Implants Used: 28 Kinyarwanda chest tube on the right side
[2021-02-15] VITALS (61 sets, daily range): BP systolic 90–130; BP diastolic 51–81; PULSE 75–113; RESP 12–25; TEMP 36.1–37.2; O2SAT 92–100
[2021-02-15 01:11] LABS: Bedside Glucose 242 mg/dL (70-110)
--- NOTE | 2021-02-15 01:39 | NURSING ---
2005- Called Dr. Valencia to update him on patient's condition. He stated to get a Chest and Abd CTA along with the Brain CT. Patient's BP is still low at this time with Levophed maxed and Vasopressin and an order for an Epinephrine infusion was placed. Once patient is stable we will get him down for his scans.
--- NOTE | 2021-02-15 01:42 | NURSING ---
2014- Called Patient's Carmella and updated her on patient's condition. I notified her that it would be a good idea to come in and see patient. She is on her way. 2029- Preparing to transport patient to CT with RN and RT. 2044- Scans completed and patient tolerated ok. Getting ready to transport back to patient's room. 2099- Patient is back in room and settled. Awaiting results of CT at this time. Dr. Wood is notified of patient's condition. Patient's family is here at bedside with patient. 2129- Radiologist notified us that patient has large right-sided tension pneumothorax. Dr. Valencia notified Dr. Wood and Dr. Wood is on his way to place chest tube. 2244- Family is escorted out to waiting room while we prepare for chest tube placement. Dr. Wood is at bedside placing chest tube at this time. 2299-Chest tube is in and dressed. Awaiting STAT Chest x-ray to confirm placement. Patient is critical but stable at this time. Family is updated. Will continue to monitor.
[2021-02-15 02:26] LABS: Base Excess -1 mmol/L (-2 to +2); Bicarbonate 24.1 mmol/L (22-26); Blood Gas Specimen Type ART; FI02 50; Mode AC; O2 Delivery Device Adult Vent; PEEP 5; PO2 65 mmHG (75-100); RR 14; SITE R Radial; SO2 92 % (95-99); Total Carbon Dioxide 25 mmol/L; Vt 500; pCO2 40.3 mmHg (35-45); pH 7.39 (7.35-7.45)
[2021-02-15 04:07] LABS: Absolute Lymphocyte Count 1.05 X10^3/uL (0.83-4.51); Absolute Neutrophil Count 10.8 X10^3/uL (2.0-7.7); Basophil# 0.05 X10^3/uL; Basophil% 0.4 % (0-1); Eosinophil# 0.06 X10^3/uL; Eosinophils% 0.5 % (0-5); Hematocrit 30.1 % (40-54); Hemoglobin 9.8 g/dL (13.0-16.5); Lymphocyte # 1.05 X10^3/ul (0.83-4.51); Lymphocyte % 8.2 % (19-41); Mean Corp Hgb Conc 32.6 g/dL (32-36); Mean Corpuscular Hgb 32.8 pg (27.0-32.0); Mean Corpuscular Volume 100.7 fL (80-94); Mean Platelet Vol. 10.6 fl (6.2-12.0); Monocyte# 0.53 X10^3/uL; Monocyte% 4.2 % (0-10); NRBC Flagged by Analyzer 0.2 % (0-5); Neutrophil # 10.84 X10^3/uL (2.7-7.7); Neutrophil % 85.1 % (47-70); POSITIVE MORPHOLOGY YES; Platelet Count 279 K/mm3 (150-450); RBC Distribution Width SD 51.1 fl (35.1-43.9); Red Blood Count 2.99 M/mm3 (4.6-6.2); White Blood Count 12.7 K/mm3 (4.4-11.0)
[2021-02-15 04:26] LABS: Differential Comment SCANNED; Differential Indicated SCAN CRITERIA MET
[2021-02-15 04:39] LABS: ALB/GLOB Ratio 0.3 RATIO (0.9-2.4); AST(SGOT) 4206 U/L (15-37); Alanine Aminotransfer ALT/SGPT 2801 U/L (16-61); Albumin, Serum 1.5 g/dL (3.2-5.0); Alkaline Phosphatase 132 U/L (45-117); Anion Gap 9 (5-15); BUN 68 mg/dL (7-18); BUN/Creat Ratio 35.2 RATIO (10-20); Calcium,Total 8.2 mg/dL (8.5-10.1); Chloride 110 mmol/L (98-107); Creatinine, Serum 1.93 mg/dL (0.70-1.30); EST Glomerular Filtration Rate 39 mL/min (>60); Est Glom Filt Rate - Afr Amer 47 mL/min (>60); Globulin 4.4 g/dL (2.2-4.2); Glucose 227 mg/dL (74-106); Magnesium 2.8 mg/dL (1.6-2.6); Phosphorus 4.5 mg/dL (2.5-4.9); Potassium 3.5 mmol/L (3.5-5.1); Protein, Total 5.9 g/dL (6.4-8.2); Sodium Level 143 mmol/L (136-145)
[2021-02-15] MEDS: Hydrocortisone Sod Succinate 100 MG/2 ML Vial IV ×3 (05:29→20:29)
[2021-02-15] MEDS: 0.9% Saline Lock 10 ML Syringe IV (05:30)
[2021-02-15] MEDS: Menthol/Lanolin/Calamine/Znox 113 GM Tube 1 APPLIC TOPICAL ×3 (05:30→20:27)
--- NOTE | 2021-02-15 05:55 | RAD_ITS ---
STUDY: X-RAY CHEST REASON FOR EXAM: Male, 55 years old. Pleural effusion TECHNIQUE: Single AP portable view of the chest. COMPARISON: Comparison is made with prior study dated 02/14/2021 at 11:17 PM. FINDINGS: An endotracheal tube is in situ. The tip is at 4.1 sinus proximal to the bing. An orogastric tube is seen with the tip below the left hemidiaphragm. A right-sided chest tube is in situ with the tip in the right lung apex. A right-sided internal jugular venous catheter is seen with the tip at the junction of the superior vena cava and right atrium. No definite pneumothorax is seen on the right side at this time. There is evidence of infiltration in the right lung and this is unchanged. Stable infiltrates in the left lung as well. There is evidence of a subcutaneous emphysema overlying the right chest wall as well as the lower aspect of the cervical region. Normal size heart. Normal mediastinum and nadia. Normal visualized pulmonary arteries. Normal visualized aortic arch and descending thoracic aorta. Normal visualized thoracic spine. Normal visualized ribs, clavicles, and shoulders. There is no demonstrated abnormality of the visualized soft tissue structures of the upper abdomen. RAD/Chest 1 View (Portable) IMPRESSION: No significant pneumothorax is seen at this time. All the support tubes are unchanged. Residual subcutaneous emphysema overlying the right lateral chest wall as well as the lower cervical region on the right side. Electronically Signed: Simón Saha MD at 8:38 EDT , Service support ,
[2021-02-15] MEDS: Insulin Lispro 100 UNIT/ML INSULN.PEN SC ×3 (06:57→17:15)
--- NOTE | 2021-02-15 07:07 | PCM.PN.INT ---
Assessment & Plan Assessment/Plan (1) Acute respiratory failure with hypoxia: (2) Pneumonia due to COVID-19 virus: PLAN: RECOMMENDATIONS: 1. Continue to wean supplemental oxygen to maintain saturations at or above 90%. Spontaneous breathing and awakening trials per protocol 2. We will hold on additional IV Lasix as long as pressors are required 3. Dietary advancement per surgery as tolerated. Possible abdominal binder intermittently 4. Continue antimicrobials per surgery 5. Wean pressors as tolerated with map goal of 65 6. Continue chest tube to suction 7. Attempt to wean pressors to the day, with potential extubation tomorrow with chest tube in place IMPRESSIONS: 1. Acute hypoxemic respiratory failure secondary to COVID-19 pneumonia/tension pneumothorax The patient presented to the hospital with progressive Covid symptoms after having been initially diagnosed at the end of December. He was therefore outside of the window for remdesivir. CTA chest showed no evidence for pulmonary embolism. The patient was emergently intubated in the emergency department. The patient has completed his treatment courses for his Covid. He remains on antimicrobials for the MSSA isolated from his sputum. The patient improved from a respiratory perspective and was able to be extubated on February 06. On 02/12/2021, patient with subsequent respiratory failure following surgery. Patient with significant secretions noted. Patient was significant decompensation yesterday secondary to the development of a tension pneumothorax. Chest tube has been placed and still has significant leak. Will attempt to address hypotension today with possible extubation tomorrow. Patient may have a better chance of closing leak if he is not on positive pressure. 2. Bowel perforation s/p exploratory laparotomy with right hemicolectomy for ischemic complicated by evisceration with anastomotic leak POD 3 Patient back from surgery on 02/12/2021 secondary to evisceration with anastomotic leak and subsequent septic shock. Patient's pressors have improved, but are still significant. We will continue with volume optimization and antibiotics. Patient remains on Zosyn therapy. This should provide significant coverage, but will need to extend stop date beyond previous target. 3. Acute kidney injury Likely prerenal in etiology. We will have to watch closely given the development of septic shock secondary to problem #2. Creatinine has increased slightly over the last 24 hours, but pressors are improving. Adequate urine output. We will continue to monitor urine output. 4. Obesity/hypertension/hyperlipidemia Complicates care, management, recovery and prognosis. Continue home medications as indicated. TIME: 40 minutes critical care time spent addressing patient's septic shock, acute hypoxic respiratory failure, bowel evisceration with anastomotic leak, review of all data and collaboration with care team (5:20 AM to 6:20 AM) Subjective Subjective Patient with significant decompensation yesterday at approximately 7 PM. Patient ultimately was on 3 pressors and went downstairs for bland CT. This was consistent with a tension pneumothorax. Patient did have a chest tube placed but continues to have significant air leak. However, after placement of chest tube, subcutaneous emphysema has improved, epinephrine was discontinued and Levophed was decreased. Objective Data Objective Data Vital Signs: Vital Signs Temp Pulse Resp BP Pulse Ox 37.2 C 77 17 111/57 L 95 02/15/21 04:00 02/15/21 06:45 02/15/21 06:00 02/15/21 06:45 02/15/21 06:00 Oxygen Flow Rate (L/min) 93 Oxygen Delivery Method Mechanical Ventilator Weight: 86.3 kg Body Mass Index (BMI) 27.1 Intake & Output: Intake and Output for Last 24 Hours 02/13/21 02/14/21 02/15/21 23:59 23:59 23:59 Intake Total 1498.15 / 1557.55 1240.02 / 1322.70 528.59 / 528.59 Output Total 1700 / 2150 3180 / 3730 1145 / 1145 Balance -201.85 / -592.45 -1939.98 / -2407.30 -616.41 / -616.41 Lab / Micro Data Result Diagrams: 02/15/21 03:45 02/15/21 03:45 Labs: Laboratory Results - last 24 hr 02/14/21 11:53: POC Glucose 189 H 02/14/21 15:20: Hgb 9.7 L, Hct 28.7 L 02/14/21 16:01: POC Glucose 202 H 02/14/21 19:15: WBC 15.9 H, RBC 3.02 L, Hgb 9.9 L, Hct 30.3 L, MCV 100.3 H, MCH 32.8 H, MCHC 32.7, RDW Std Deviation 51.2 H, RDW Coeff of Blanca 14.0, Plt Count 390, MPV 10.1, Immature Gran % (Auto) 1.600 H, Neut % (Auto) 82.1 H, Lymph % (Auto) 10.0 L, [place] % (Auto) 5.9, Eos % (Auto) 0.1, Baso % (Auto) 0.3, Absolute Neuts (auto) 13.1 H, Absolute Lymphs (auto) 1.59, Nucleated RBC % 0.2, Differential Comment 02/14/21 19:15: Sodium 142, Potassium 4.0, Chloride 106, Carbon Dioxide 27.0, Anion Gap 9, BUN 62 H, Creatinine 1.85 H, Estim Creat Clear Calc 47.68, Est GFR (MDRD) Af Amer 49 L, Est GFR (MDRD) Non-Af 41 L, BUN/Creatinine Ratio 33.5 H, Glucose 236 H, Calcium 8.5, Phosphorus 3.7, Magnesium 2.8 H, Total Bilirubin 0.50, AST 1153 H, ALT 1142 H, Alkaline Phosphatase 112, Troponin I High Sens 26, Total Protein 6.4, Albumin 1.8 L, Globulin 4.6 H, Albumin/Globulin Ratio 0.4 L 02/14/21 19:58: Ammonia 49.0 H 02/14/21 23:27: POC Glucose 242 H 02/15/21 03:45: WBC 12.7 H, RBC 2.99 L, Hgb 9.8 L, Hct 30.1 L, MCV 100.7 H, MCH 32.8 H, MCHC 32.6, RDW Std Deviation 51.1 H, RDW Coeff of Blanca 14.0, Plt Count 279, MPV 10.6, Immature Gran % (Auto) 1.600 H, Neut % (Auto) 85.1 H, Lymph % (Auto) 8.2 L, [place] % (Auto) 4.2, Eos % (Auto) 0.5, Baso % (Auto) 0.4, Absolute Neuts (auto) 10.8 H, Absolute Lymphs (auto) 1.05, Nucleated RBC % 0.2, Differential Comment SCANNED 02/15/21 03:45: Sodium 143, Potassium 3.5, Chloride 110 H, Carbon Dioxide 24.0, Anion Gap 9, BUN 68 H, Creatinine 1.93 H, Estim Creat Clear Calc 45.70, Est GFR (MDRD) Af Amer 47 L, Est GFR (MDRD) Non-Af 39 L, BUN/Creatinine Ratio 35.2 H, Glucose 227 H, Calcium 8.2 L, Phosphorus 4.5, Magnesium 2.8 H, Total Bilirubin 0.50, AST 4206 H, ALT 2801 H, Alkaline Phosphatase 132 H, Total Protein 5.9 L, Albumin 1.5 L, Globulin 4.4 H, Albumin/Globulin Ratio 0.3 L Micro: Microbiology 02/13/21 06:00 Sputum, Induced/Lukens Gram Stain - Final 02/13/21 06:00 Sputum, Induced/Lukens Respiratory Culture - Preliminary Staphylococcus aureus 02/07/21 18:00 Stool Stool Occult Blood (MATILDA) - Final Occult Blood Positive 02/05/21 09:31 Sputum, Induced/Lukens Gram Stain - Final 02/05/21 09:31 Sputum, Induced/Lukens Respiratory Culture - Final Staphylococcus aureus 02/01/21 11:25 Blood Culture (Wb) - Central Line Blood Culture - Final No growth in 5 days. 02/01/21 11:45 Blood Culture (Wb) - Left Wrist Blood Culture - Final No growth in 5 days. 02/01/21 11:30 Sputum, Induced/Lukens Gram Stain - Final 02/01/21 11:30 Sputum, Induced/Lukens Respiratory Culture - Final Staphylococcus aureus 01/27/21 18:30 Blood Culture (Wb) - Anticubital Left Blood Culture - Final No growth in 5 days. 01/27/21 18:33 Blood Culture (Wb) - Central Line Blood Culture - Final No growth in 5 days. 01/30/21 13:20 Stool C. difficile DNA Amplification - Final 01/28/21 08:20 Sputum, Induced/Lukens Gram Stain - Final 01/28/21 08:20 Sputum, Induced/Lukens Respiratory Culture - Final Mixed normal respiratory eulalia. No Streptococcus pneumoniae, beta-hemolytic Streptococcus or Staphylococcus aureus isolated. 01/27/21 21:40 Urine Catheter - Catheter Urine Culture - Final Culture exhibits no growth. 01/27/21 19:30 Mucosa - Nose Respiratory Panel (PCR) - Final 01/27/21 19:25 Urine Catheter - Catheter Legionella Antigen - Final 01/27/21 19:25 Urine Catheter - Catheter Streptococcus pneumoniae Antigen (M - Final ABG Data ABG results: ABG 02/15/21 02:18 Specimen Type ART Sample Site R Radial pH 7.39 Bicarbonate Actual 24.1 Total CO2 25 Base Excess -1 O2 Saturation 92 L O2 % 50 ABG pCO2 40.3 ABG pO2 65 L Patrick Test N/A Respiration Rate 14 O2 Delivery Device Adult Vent Vent Mode AC Tidal Volume 500 POC PEEP 5 Clinical Comments VE 6.42 Radiography Diagnostic Testing: Radiology Impression Brain CT 02/14/21 19:21 IMPRESSION: No acute intracranial pathology. Abnormal soft tissue gas during the pharyngeal mucosal and retropharyngeal space, potentially within the danger space. Correlation with contrast-enhanced CT chest and neck is recommended Electronically Signed: Heath Shoemaker DO at 22:08 EDT Tel , Service support , ADDENDUM: 02/14/212224 IMPRESSION: No acute intracranial pathology. Abnormal soft tissue gas during the pharyngeal mucosal and retropharyngeal space, potentially within the danger space. Correlation with contrast-enhanced CT chest and neck is recommended N.B. : The above Results were Read Back by Heath Shoemaker DO to Inez Syed RN, and understanding confirmed on 02/14/2021 22:18:29 (ET). Electronically Signed: Heath Shoemaker DO at 22:08 EDT Tel , Service support , Chest/Abdomen/Pelvis CTA 02/14/21 20:24 IMPRESSION: Tension pneumothorax with completely collapsed right lung and significant mass effect on the mediastinum and right hemidiaphragm. Extensive mediastinal and soft tissue emphysema chest and abdomen with extension into superficial abdominal wall fascial planes and right inguinal canal. Abnormal stranding density or seen in the mesenteric fat around left mid abdomen colostomy site with areas of apparent loculated fluid versus potential developing abscesses. Multifocal pneumonia left lung. N.B. : The above Results were Read Back by Heath Shoemaker DO to Inez Syed RN, and understanding confirmed on 02/14/2021 22:42:51 (ET). Electronically Signed: Heath Shoemaker DO at 23:19 EDT Tel , Service support , ADDENDUM: 02/14/21 5196 IMPRESSION: Tension pneumothorax with completely collapsed right lung and significant mass effect on the mediastinum and right hemidiaphragm. Extensive mediastinal and soft tissue emphysema chest and abdomen with extension into superficial abdominal wall fascial planes and right inguinal canal. Abnormal stranding density or seen in the mesenteric fat around left mid abdomen colostomy site with areas of apparent loculated fluid versus potential developing abscesses. Multifocal pneumonia left lung. N.B. : The above Results were Read Back by Heath Shoemaker DO to Inez Syed RN, and understanding confirmed on 02/14/2021 22:42:51 (ET). Electronically Signed: Heath Shoemaker DO at 23:19 EDT Tel , Service support , Chest X-Ray 02/14/21 23:10 IMPRESSION: Small right-sided pneumothorax, right chest tube in place. Decreasing right pleural effusion. Improving aeration left lung. at 0037 Reported and signed by: Marcos Snider MD Electronically Signed: Marcos Snider MD at 0:36 EDT Tel , Service support , Physical Exam Const General Appearance: lethargic, intubated and patient mechanically ventilated Nutritional Appearance: obese HEENT normocephalic and head/scalp atraumatic Eyes PERRL, EOMs intact bilaterally and conjunctivae normal Neck supple General: trachea midline and CVC in place Chest Chest: crepitus and chest tube right (Continuous leak); Negative for symmetrical chest wall rise Resp Auscultation: rhonchi and diminished lung sounds; Negative for rales or wheezes Cardio regular rate and regular rhythm Heart Sounds: Negative for gallop, murmur or rub GI GI Narrative: Open bowel wound. New ostomy with some output noted. Inspection: ostomy present Auscultation: normoactive bowel sounds Extremity no clubbing, cyanosis or edema Skin no rashes or lesions noted Neuro moves all extremities and no focal motor deficits Psych cooperative Charges/Coding Procedures Hospitalists Procedures: [id number] Critial Care 1st Hr
--- NOTE | 2021-02-15 07:17 | PCM.PN.SRG ---
Subjective Subjective Patient had right tension pneumothorax overnight and required emergency chest tube placement. Objective Data Objective Data Vital Signs: Vital Signs Temp Pulse Resp BP Pulse Ox 98.9 F 77 17 111/57 L 95 02/15/21 04:00 02/15/21 06:45 02/15/21 06:00 02/15/21 06:45 02/15/21 06:00 Oxygen Flow Rate (L/min) 93 Oxygen Delivery Method Mechanical Ventilator Weight: 190 lb 4.143 oz Body Mass Index (BMI) 27.1 Intake & Output: Intake and Output for Last 24 Hours 02/13/21 02/14/21 02/15/21 23:59 23:59 23:59 Intake Total 1498.15 / 1557.55 1240.02 / 1322.70 528.59 / 528.59 Output Total 1700 / 2150 3180 / 3730 1145 / 1145 Balance -201.85 / -592.45 -1939.98 / -2407.30 -616.41 / -616.41 Lab / Micro Data Result Diagrams: 02/15/21 03:45 02/15/21 03:45 Labs: Laboratory Results - last 24 hr 02/14/21 11:53: POC Glucose 189 H 02/14/21 15:20: Hgb 9.7 L, Hct 28.7 L 02/14/21 16:01: POC Glucose 202 H 02/14/21 19:15: WBC 15.9 H, RBC 3.02 L, Hgb 9.9 L, Hct 30.3 L, MCV 100.3 H, MCH 32.8 H, MCHC 32.7, RDW Std Deviation 51.2 H, RDW Coeff of Blanca 14.0, Plt Count 390, MPV 10.1, Immature Gran % (Auto) 1.600 H, Neut % (Auto) 82.1 H, Lymph % (Auto) 10.0 L, [place] % (Auto) 5.9, Eos % (Auto) 0.1, Baso % (Auto) 0.3, Absolute Neuts (auto) 13.1 H, Absolute Lymphs (auto) 1.59, Nucleated RBC % 0.2, Differential Comment 02/14/21 19:15: Sodium 142, Potassium 4.0, Chloride 106, Carbon Dioxide 27.0, Anion Gap 9, BUN 62 H, Creatinine 1.85 H, Estim Creat Clear Calc 47.68, Est GFR (MDRD) Af Amer 49 L, Est GFR (MDRD) Non-Af 41 L, BUN/Creatinine Ratio 33.5 H, Glucose 236 H, Calcium 8.5, Phosphorus 3.7, Magnesium 2.8 H, Total Bilirubin 0.50, AST 1153 H, ALT 1142 H, Alkaline Phosphatase 112, Troponin I High Sens 26, Total Protein 6.4, Albumin 1.8 L, Globulin 4.6 H, Albumin/Globulin Ratio 0.4 L 02/14/21 19:58: Ammonia 49.0 H 02/14/21 23:27: POC Glucose 242 H 02/15/21 03:45: WBC 12.7 H, RBC 2.99 L, Hgb 9.8 L, Hct 30.1 L, MCV 100.7 H, MCH 32.8 H, MCHC 32.6, RDW Std Deviation 51.1 H, RDW Coeff of Blanca 14.0, Plt Count 279, MPV 10.6, Immature Gran % (Auto) 1.600 H, Neut % (Auto) 85.1 H, Lymph % (Auto) 8.2 L, [place] % (Auto) 4.2, Eos % (Auto) 0.5, Baso % (Auto) 0.4, Absolute Neuts (auto) 10.8 H, Absolute Lymphs (auto) 1.05, Nucleated RBC % 0.2, Differential Comment SCANNED 02/15/21 03:45: Sodium 143, Potassium 3.5, Chloride 110 H, Carbon Dioxide 24.0, Anion Gap 9, BUN 68 H, Creatinine 1.93 H, Estim Creat Clear Calc 45.70, Est GFR (MDRD) Af Amer 47 L, Est GFR (MDRD) Non-Af 39 L, BUN/Creatinine Ratio 35.2 H, Glucose 227 H, Calcium 8.2 L, Phosphorus 4.5, Magnesium 2.8 H, Total Bilirubin 0.50, AST 4206 H, ALT 2801 H, Alkaline Phosphatase 132 H, Total Protein 5.9 L, Albumin 1.5 L, Globulin 4.4 H, Albumin/Globulin Ratio 0.3 L Micro: Microbiology 02/13/21 06:00 Sputum, Induced/Lukens Gram Stain - Final 02/13/21 06:00 Sputum, Induced/Lukens Respiratory Culture - Preliminary Staphylococcus aureus 02/07/21 18:00 Stool Stool Occult Blood (MATILDA) - Final Occult Blood Positive 02/05/21 09:31 Sputum, Induced/Lukens Gram Stain - Final 02/05/21 09:31 Sputum, Induced/Lukens Respiratory Culture - Final Staphylococcus aureus 02/01/21 11:25 Blood Culture (Wb) - Central Line Blood Culture - Final No growth in 5 days. 02/01/21 11:45 Blood Culture (Wb) - Left Wrist Blood Culture - Final No growth in 5 days. 02/01/21 11:30 Sputum, Induced/Lukens Gram Stain - Final 02/01/21 11:30 Sputum, Induced/Lukens Respiratory Culture - Final Staphylococcus aureus 01/27/21 18:30 Blood Culture (Wb) - Anticubital Left Blood Culture - Final No growth in 5 days. 01/27/21 18:33 Blood Culture (Wb) - Central Line Blood Culture - Final No growth in 5 days. 01/30/21 13:20 Stool C. difficile DNA Amplification - Final 01/28/21 08:20 Sputum, Induced/Lukens Gram Stain - Final 01/28/21 08:20 Sputum, Induced/Lukens Respiratory Culture - Final Mixed normal respiratory eulalia. No Streptococcus pneumoniae, beta-hemolytic Streptococcus or Staphylococcus aureus isolated. 01/27/21 21:40 Urine Catheter - Catheter Urine Culture - Final Culture exhibits no growth. 01/27/21 19:30 Mucosa - Nose Respiratory Panel (PCR) - Final 01/27/21 19:25 Urine Catheter - Catheter Legionella Antigen - Final 01/27/21 19:25 Urine Catheter - Catheter Streptococcus pneumoniae Antigen (M - Final ABG Data ABG results: ABG 02/15/21 02:18 Specimen Type ART Sample Site R Radial pH 7.39 Bicarbonate Actual 24.1 Total CO2 25 Base Excess -1 O2 Saturation 92 L O2 % 50 ABG pCO2 40.3 ABG pO2 65 L Patrick Test N/A Respiration Rate 14 O2 Delivery Device Adult Vent Vent Mode AC Tidal Volume 500 POC PEEP 5 Clinical Comments VE 6.42 Radiography Diagnostic Testing: Radiology Impression Brain CT 02/14/21 19:21 IMPRESSION: No acute intracranial pathology. Abnormal soft tissue gas during the pharyngeal mucosal and retropharyngeal space, potentially within the danger space. Correlation with contrast-enhanced CT chest and neck is recommended Electronically Signed: Heath Shoemaker DO at 22:08 EDT Tel , Service support , ADDENDUM: 02/14/21 2225 IMPRESSION: No acute intracranial pathology. Abnormal soft tissue gas during the pharyngeal mucosal and retropharyngeal space, potentially within the danger space. Correlation with contrast-enhanced CT chest and neck is recommended N.B. : The above Results were Read Back by Heath Shoemaker DO to Inez Syed RN, and understanding confirmed on 02/14/2021 22:18:29 (ET). Electronically Signed: Heath Shoemaker DO at 22:08 EDT Tel , Service support , Chest/Abdomen/Pelvis CTA 02/14/21 20:24 IMPRESSION: Tension pneumothorax with completely collapsed right lung and significant mass effect on the mediastinum and right hemidiaphragm. Extensive mediastinal and soft tissue emphysema chest and abdomen with extension into superficial abdominal wall fascial planes and right inguinal canal. Abnormal stranding density or seen in the mesenteric fat around left mid abdomen colostomy site with areas of apparent loculated fluid versus potential developing abscesses. Multifocal pneumonia left lung. N.B. : The above Results were Read Back by Heath Shoemaker DO to Inez Syed RN, and understanding confirmed on 02/14/2021 22:42:51 (ET). Electronically Signed: Heath Shoemaker DO at 23:19 EDT Tel , Service support , ADDENDUM: 02/14/21 2326 IMPRESSION: Tension pneumothorax with completely collapsed right lung and significant mass effect on the mediastinum and right hemidiaphragm. Extensive mediastinal and soft tissue emphysema chest and abdomen with extension into superficial abdominal wall fascial planes and right inguinal canal. Abnormal stranding density or seen in the mesenteric fat around left mid abdomen colostomy site with areas of apparent loculated fluid versus potential developing abscesses. Multifocal pneumonia left lung. N.B. : The above Results were Read Back by Heath Shoemaker DO to Inez Syed RN, and understanding confirmed on 02/14/2021 22:42:51 (ET). Electronically Signed: Heath Shoemaker DO at 23:19 EDT Tel , Service support , Chest X-Ray 02/14/21 23:10 IMPRESSION: Small right-sided pneumothorax, right chest tube in place. Decreasing right pleural effusion. Improving aeration left lung. at 0037 Reported and signed by: Marcos Snider MD Electronically Signed: Marcos Snider MD at 0:36 EDT Tel , Service support , Physical Exam Resp Resp Narrative: Intubated with right-sided chest tube with continuous air leak Assessment & Plan Assessment/Plan (1) Pneumothorax, right: PLAN: Patient emergent right chest tube placement overnight. Patient still has continuous air leak. The patient may not fully expand his lung until he is extubated and positive pressure is turned off. Continue suction on chest tube and wean off ventilator. (2) Anastomotic leak of intestine: PLAN: Patient is having stool from his ileostomy. Jesús Wood MD Pager: [facility] [address] [place] [address], [address] [place] [address] Office:
[2021-02-15 07:51] LABS: Bedside Glucose 219 mg/dL (70-110)
[2021-02-15] MEDS: Chlorhexidine 15 ML PO ×2 (09:30→20:28)
[2021-02-15] MEDS: Enoxaparin 30 MG/0.3 ML Syringe SC ×2 (09:30→20:28)
[2021-02-15] MEDS: Furosemide 40 MG/4 ML Vial IV ×2 (09:31→17:15)
[2021-02-15] MEDS: CHLORHEXIDINE GLUC 2% CLOTH 1 EACH TOWELETTE TOPICAL (09:31)
[2021-02-15] MEDS: Ascorbic Acid 500 MG Tablet 1000 MG PO (09:31)
--- NOTE | 2021-02-15 10:03 | WOUNDNOTE ---
removed the ostomy appliance. appliance emptied for 75 cc's liquid green/brown stool. stoma is pink and moist. sits slightly above the skin level. peristomal skin is intact. cleansed skin with warm water. pat dry. applied a new 2 piece flat Lisa appliance with a small amount of stoma paste. observed appliance change. questions answered. will continue education with while patient is in the hospital. see stoma photo.
--- NOTE | 2021-02-15 10:15 | PN.HOSP_ITS ---
Subjective Subjective Significant issues overnight, he had 2 rapid responses and initially there was concern for possible seizure-like activity so he was started on Keppra and his CT brain was unremarkable. However throughout the night he developed crepitus and a CT scan of his chest abdomen and pelvis demonstrated a tension pneumothor ax on the right. Surgery was emergently called and a chest tube was placed. During these episodes he need to go up on his Levophed to maintain his blood pressure though he is back down to 15 mcg/min Objective Data Objective Data Vital Signs: Vital Signs Temp Pulse Resp BP Pulse Ox 97.8 F 76 16 102/62 93 02/15/21 08:00 02/15/21 08:15 02/15/21 08:15 02/15/21 08:45 02/15/21 08:15 Oxygen Flow Rate (L/min) 93 Oxygen Delivery Method Mechanical Ventilator Weight: 190 lb 4.143 oz Body Mass Index (BMI) 27.1 Intake & Output: Intake and Output for Last 24 Hours 02/14/21 02/15/21 02/16/21 03:59 03:59 03:59 Intake Total 1505.16 / 1564.56 1379.54 / 1397.04 435.70 / 435.70 Output Total 1999 3280 / 3280 595 / 595 Balance -494.84 / -435.44 -1900.46 / -1882.96 -159.30 / -159.30 Lab / Micro Data Result Diagrams: 02/15/21 03:45 02/15/21 03:45 Labs: Laboratory Results - last 24 hr 02/14/21 11:53: POC Glucose 189 H 02/14/21 15:20: Hgb 9.7 L, Hct 28.7 L 02/14/21 16:01: POC Glucose 202 H 02/14/21 19:15: WBC 15.9 H, RBC 3.02 L, Hgb 9.9 L, Hct 30.3 L, MCV 100.3 H, MCH 32.8 H, MCHC 32.7, RDW Std Deviation 51.2 H, RDW Coeff of Blanca 14.0, Plt Count 390, MPV 10.1, Immature Gran % (Auto) 1.600 H, Neut % (Auto) 82.1 H, Lymph % (Auto) 10.0 L, [place] % (Auto) 5.9, Eos % (Auto) 0.1, Baso % (Auto) 0.3, Absolute Neuts (auto) 13.1 H, Absolute Lymphs (auto) 1.59, Nucleated RBC % 0.2, Dif ferential Comment 02/14/21 19:15: Sodium 142, Potassium 4.0, Chloride 106, Carbon Dioxide 27.0, Anion Gap 9, BUN 62 H, Creatinine 1.85 H, Estim Creat Clear Calc 47.68, Est GFR (MDRD) Af Amer 49 L, Est GFR (MDRD) Non-Af 41 L, BUN/Creatinine Ratio 33.5 H, Glucose 236 H, Calcium 8.5, Phosphorus 3.7, Magnesium 2.8 H, Total Bilirubin 0.50, AST 1153 H, ALT 1142 H, Alkaline Phosphatase 112, Troponin I High Sens 26, Total Protein 6.4, Albumin 1.8 L, Globulin 4.6 H, Albumin/Globulin Ratio 0.4 L 02/14/21 19:58: Ammonia 49.0 H 02/14/21 23:27: POC Glucose 242 H 02/15/21 03:45: WBC 12.7 H, RBC 2.99 L, Hgb 9.8 L, Hct 30.1 L, MCV 100.7 H, MCH 32.8 H, MCHC 32.6, RDW Std Deviation 51.1 H, RDW Coeff of Blanca 14.0, Plt Count 279, MPV 10.6, Immature Gran % (Auto) 1.600 H, Neut % (Auto) 85.1 H, Lymph % (Auto) 8.2 L, [place] % (Auto) 4.2, Eos % (Auto) 0.5, Baso % (Auto) 0.4, Absolute Neuts (auto) 10.8 H, Absolute Lymphs (auto) 1.05, Nucleated RBC % 0.2, Differential Comment SCANNED 02/15/21 03:45: Sodium 143, Potassium 3.5, Chloride 110 H, Carbon Dioxide 24.0, Anion Gap 9, BUN 68 H, Creatinine 1.93 H, Estim Creat Clear Calc 45.70, Est GFR (MDRD) Af Amer 47 L, Est GFR (MDRD) Non-Af 39 L, BUN/Creatinine Ratio 35.2 H, Glucose 227 H, Calcium 8.2 L, Phosphorus 4.5, Magnesium 2.8 H, Total Bilirubin 0.50, AST 4206 H, ALT 2801 H, Alkaline Phosphatase 132 H, Total Protein 5.9 L, Albumin 1.5 L, Globulin 4.4 H, Albumin/Globulin Ratio 0.3 L 02/15/21 06:56: POC Glucose 219 H Micro: Microbiology 02/13/21 06:00 Sputum, Induced/Lukens Gram Stain - Final 02/13/21 06:00 Sputum, Induced/Lukens Respiratory Culture - Final Staphylococcus aureus 02/07/21 18:00 Stool Stool Occult Blood (MATILDA) - Final Occult Blood Positive 02/05/21 09:31 Sputum, Induced/Lukens Gram Stain - Final 02/05/21 09:31 Sputum, Induced/Lukens Respiratory Culture - Final Staphylococcus aureus 02/01/21 11:25 Blood Culture (Wb) - Central Line Blood Culture - Final No growth in 5 days. 02/01/21 11:45 Blood Culture (Wb) - Left Wrist Blood Culture - Final No growth in 5 days. 02/01/21 11:30 Sputum, Induced/Lukens Gram Stain - Final 02/01/21 11:30 Sputum, Induced/Lukens Respiratory Culture - Final Staphylococcus aureus 01/27/21 18:30 Blood Culture (Wb) - Anticubital Left Blood Culture - Final No growth in 5 days. 01/27/21 18:33 Blood Culture (Wb) - Central Line Blood Culture - Final No growth in 5 days. 01/30/21 13:20 Stool C. difficile DNA Amplification - Final 01/28/21 08:20 Sputum, Induced/Lukens Gram Stain - Final 01/28/21 08:20 Sputum, Induced/Lukens Respiratory Culture - Final Mixed normal respiratory eulalia. No Streptococcus pneumoniae, beta-hemolytic Streptococcus or Staphylococcus aureus isolated. 01/27/21 21:40 Urine Catheter - Catheter Urine Culture - Final Culture exhibits no growth. 01/27/21 19:30 Mucosa - Nose Respiratory Panel (PCR) - Final 01/27/21 19:25 Urine Catheter - Catheter Legionella Antigen - Final 01/27/21 19:25 Urine Catheter - Catheter Streptococcus pneumoniae Antigen (M - Final ABG Data ABG results: ABG 02/15/21 02:18 Specimen Type ART Sample Site R Radial pH 7.39 Bicarbonate Actual 24.1 Total CO2 25 Base Excess -1 O2 Saturation 92 L O2 % 50 ABG pCO2 40.3 ABG pO2 65 L Patrick Test N/A Respiration Rate 14 O2 Delivery Device Adult Vent Vent Mode AC Tidal Volume 500 POC PEEP 5 Clinical Comments VE 6.42 Radiography Diagnostic Testing: Radiology Impression Brain CT 02/14/21 19:21 IMPRESSION: No acute intracranial pathology. Abnormal soft tissue gas during the pharyngeal mucosal and retropharyngeal space, potentially within the danger space. Correlation with contrast-enhanced CT chest and neck is recommended Electronically Signed: Heath Shoemaker DO at 22:08 EDT Tel , Service support , ADDENDUM: 02/14/215 IMPRESSION: No acute intracranial pathology. Abnormal soft tissue gas during the pharyngeal mucosal and retropharyngeal space, potentially within the danger space. Correlation with contrast-enhanced CT chest and neck is recommended N.B. : The above Results were Read Back by Heath Shoemaker DO to Inez Syed RN, and understanding confirmed on 02/14/2021 22:18:29 (ET). Electronically Signed: Heath Shoemaker DO at 22:08 EDT Tel , Service support , Chest/Abdomen/Pelvis CTA 02/14/21 20:24 IMPRESSION: Tension pneumothorax with completely collapsed right lung and significant mass effect on the mediastinum and right hemidiaphragm. Extensive mediastinal and soft tissue emphysema chest and abdomen with extension into superficial abdominal wall fascial planes and right inguinal canal. Abnormal stranding density or seen in the mesenteric fat around left mid abdomen colostomy site with areas of apparent loculated fluid versus potential developing abscesses. Multifocal pneumonia left lung. N.B. : The above Results were Read Back by Heath Shoemaker DO to Inez Syed RN, and understanding confirmed on 02/14/2021 22:42:51 (ET). Electronically Signed: Heath Shoemaker DO at 23:19 EDT Tel , Service support , ADDENDUM: 02/14/21 [id number] IMPRESSION: Tension pneumothorax with completely collapsed right lung and significant mass effect on the mediastinum and right hemidiaphragm. Extensive mediastinal and soft tissue emphysema chest and abdomen with extension into superficial abdominal wall fascial planes and right inguinal canal. Abnormal stranding density or seen in the mesenteric fat around left mid abdomen colostomy site with areas of apparent loculated fluid versus potential developing abscesses. Multifocal pneumonia left lung. N.B. : The above Results were Read Back by Heath Shoemaker DO to Inez Syed RN, and understanding confirmed on 02/14/2021 22:42:51 (ET). Electronically Signed: Heath Shoemaker DO at 23:19 EDT Tel , Service support , Chest X-Ray 02/14/21 23:10 IMPRESSION: Small right-sided pneumothorax, right chest tube in place. Decreasing right pleural effusion. Improving aeration left lung. at 0037 Reported and signed by: Marcos Snider MD Electronically Signed: Marcos Snider MD at 0:36 EDT Tel , Service support , Chest X-Ray 02/15/21 05:55 IMPRESSION: No significant pneumothorax is seen at this time. All the support tubes are unchanged. Residual subcutaneous emphysema overlying the right lateral chest wall as well as the lower cervical region on the right side. Electronically Signed: Simón Shaa MD at 8:38 EDT , Service support , Physical Exam Const alert and no apparent distress General Appearance: intubated and patient mechanically ventilated HEENT normocephalic and moist oral mucous membranes Eyes PERRL and conjunctivae normal Neck supple and no JVD Chest Chest: chest tube right Resp normal respiratory effort, no retractions and no use of accessory muscles Auscultation: rhonchi and diminished lung sounds; Negative for crackles, rales or wheezes Cardio regular rate, regular rhythm, S1 normal heart sound, S2 normal heart sound and no murmurs GI soft to palpation, non-tender and non-distended; Negative for hepatosplenomegaly GI Narrative: Ostomy intact Extremity no clubbing, cyanosis or edema Skin no rashes or lesions noted Neuro no focal motor deficits and no sensory deficits noted Psych Appearance: appropriate and intubated Mood & Affect: flat affect Assessment & Plan Assessment/Plan (1) Acute respiratory failure with hypoxia: PLAN: 1. Acute hypoxic respiratory failure/tension pneumothorax ?Secondary to SARS-CoV-2 pneumonia. Patient admitted to the intensive care unit placed on ventilator. Patient was outside the window for remdesivir. Was started on Decadron. Did receive a dose of Tocilizumab -02/06/2021; weaned off the vent - 02/07/2021; patient was placed back on BiPAP following prolonged coughing episode complicated by desaturation.Patient was placed empirically on vancomycin after his cultures came back positive for staph final identification and sensitivities pending 02/08/2021: Continue with air Vo. Appreciate infectious disease and senior linux unix engineer assistance 02/09/2021: Stable continue with air Vo, Will continue with Lasix as needed -02/10/2021: Currently on nasal cannula, will continue to encourage pulmonary toilet, also recommend proning when able. Needs to wear BiPAP at night and this was discussed. Continue with Lasix twice daily -02/11/2021: Continue to wean oxygen -02/12/2021: We will continue to wean oxygen though he does need to go back to the OR today for fascial closure and may need to be intubated secondary to his respiratory status with Covid -02/13/2021: Remains intubated today secondary to high pressor requirement but off sedation -02/14/2021: He is down to 5 mics per minute of Levophed however he was tachypneic and a little bit tachycardic during his spontaneous breathing trial even though he passed it therefore we will keep him intubated for another 24 hours -02/15/2021: Developed a tension pneumothorax overnight and the chest tube was placed with significant air leak. Will attempt to wean his Levophed today and if possible extubate tomorrow as he will unlikely be able to close his air leak while still on positive pressure ventilation. 2. Severe sepsis ?Secondary to SARS-CoV-2 pneumonia with superimposed bacterial pneumonia (staph pneumonia) as well as perforated cecum. Patient did receive IV fluid resuscitation and subsequently started on broad-spectrum antibiotic therapy with Zosyn and vancomycin with consultation placed to ID 02/08/2021: Continue with IV antibiotics, sputum culture with MSSA 02/11/2021: We will complete Zosyn tomorrow for a 10-day course. 02/12/2021: May need to continue his Zosyn for another 24 hours secondary to the needing to go back to the OR today for fascial closure -02/13/2021: Though he has completed Zosyn for his MSSA pneumonia, he did have to have repeat surgery yesterday. We will continue 3. Perforated cecum with very dilated ascending and transverse colon ?Patient underwent exploratory laparotomy with extended right hemicolectomy on 02/04/[address] Wood -02/06/2021 postoperative day 2. Patient complains of some abdominal discomfort his surgical incision however remains clean dry and intact -02/07/2021. Patient has return of bowel function plan is for patient to be started on oral diet once he passes his bedside swallow eval 02/08/2021: Continue with IV Zosyn to cover both MSSA as well as his perforated cecum. Continue to evaluate with speech therapy, he did fail yesterday 02/10/2021: Was evaluated by speech therapy in the past, he is clear to take clear liquids. 02/12/2021: See #2 02/13/2021: Status post evisceration and anastomotic leak repair with ileostomy on 02/12/2021 -02/14/2021: Continue with Zosyn appreciate surgical assistance 4. Hyperglycemia ?Secondary to chronic steroid use Patient is currently on long-acting insulin in addition to sliding scale coverage 5. Essential hypertension ?Blood pressure on the low side patient antihypertensives never restarted 6. Dyslipidemia ?On statin therapy prior to admission DVT: Lovenox Charges/Coding Visit Charges Inpatient E&M: 13735 Subs Hosp L2
--- NOTE | 2021-02-15 10:16 | WOUNDNOTE ---
stoma photo: right abdomen
--- NOTE | 2021-02-15 10:45 | PN.ID_ITS ---
Physical Exam Narrative Developed tension pneumo overnight, chest tube placed. Const Constitutional Narrative: awake on vent Resp Resp Narrative: coarse bilat Cardio regular rate and regular rhythm GI normal to inspection, nondistended, normoactive bowel sounds Skin no rashes or lesions noted ID ID: Route of nutrition/ use of supplements: [] Nutritional Intake: [] IV Site: [] Colon Catheter: [] Assessment & Plan Assessment/Plan (1) Pneumonia due to COVID-19 virus: PLAN: Sx started around 01/15. Isolate for 20 days from that point. Unvaccinated. Encouraged vaccine once recovered. Cxs neg. Wbc remains elevated but improved. UAg neg. CT neg for PE. Given toci x1 on 01/27. Completed dex. Sputum with mssa. Now with bowel perf, taken to OR 02/[address] Wood for extended R hemicolectomy. Possible side effect of tocilizumab, has been reported post saida stephens; d/w pharmacy, report sent. On zosyn. Taken back to OR 02/12 for fascial dehiscence and small bowel evisceration. Now with tension pneumo requiring chest tube. Will follow (2) Acute respiratory failure with hypoxia: (3) Perforated bowel:
[2021-02-15 11:35] LABS: Bedside Glucose 224 mg/dL (70-110)
--- NOTE | 2021-02-15 14:10 | CASEMGMT ---
Social Work SW attended ICU rounds. Pt present during rounds. Update provided to Aicha in TCU who states pt is on the list for TCU admission when ready. Pt will need precert prior to discharge. KRISTEN will continue to follow. HENNA Oliver
[2021-02-15] MEDS: Vital High Protein 1,000 ML 25 ML GT (14:14)
[2021-02-15 17:20] LABS: Bedside Glucose 232 mg/dL (70-110)
[2021-02-15] MEDS: MELATONIN 3 MG TABLET PO (20:39)
[2021-02-16] VITALS (34 sets, daily range): BP systolic 97–130; BP diastolic 57–83; PULSE 69–100; RESP 14–40; TEMP 36.4–37.2; O2SAT 92–99
[2021-02-16] MEDS: Insulin Lispro 100 UNIT/ML INSULN.PEN SC ×4 (00:48→17:13)
[2021-02-16 02:31] LABS: Bedside Glucose 260 mg/dL (70-110)
[2021-02-16 03:50] LABS: Absolute Lymphocyte Count 1.04 X10^3/uL (0.83-4.51); Basophil# 0.03 X10^3/uL; Basophil% 0.3 % (0-1); Eosinophil# 0.01 X10^3/uL; Eosinophils% 0.1 % (0-5); Hemoglobin 8.6 g/dL (13.0-16.5); Lymphocyte # 1.04 X10^3/ul (0.83-4.51); Mean Corp Hgb Conc 33.1 g/dL (32-36); Mean Corpuscular Volume 99.6 fL (80-94); Mean Platelet Vol. 10.4 fl (6.2-12.0); Monocyte# 0.34 X10^3/uL; Monocyte% 2.9 % (0-10); NRBC Flagged by Analyzer 1.3 % (0-5); Neutrophil # 9.97 X10^3/uL (2.7-7.7); Neutrophil % 86.1 % (47-70); POSITIVE MORPHOLOGY YES; Platelet Count 237 K/mm3 (150-450); RBC Distribution Width CV 13.9 % (11.6-14.6); RBC Distribution Width SD 50.2 fl (35.1-43.9); Red Blood Count 2.61 M/mm3 (4.6-6.2); White Blood Count 11.6 K/mm3 (4.4-11.0)
[2021-02-16 03:52] LABS: Differential Indicated SCAN CRITERIA MET
[2021-02-16 04:12] LABS: Differential Comment SCANNED
[2021-02-16 04:31] LABS: ALB/GLOB Ratio 0.3 RATIO (0.9-2.4); AST(SGOT) 955 U/L (15-37); Alanine Aminotransfer ALT/SGPT 1756 U/L (16-61); Albumin, Serum 1.4 g/dL (3.2-5.0); Alkaline Phosphatase 124 U/L (45-117); Anion Gap 4 (5-15); BUN 60 mg/dL (7-18); BUN/Creat Ratio 45.5 RATIO (10-20); Calcium,Total 8.5 mg/dL (8.5-10.1); Chloride 114 mmol/L (98-107); Creatinine, Serum 1.32 mg/dL (0.70-1.30); EST Glomerular Filtration Rate 60 mL/min (>60); Est Glom Filt Rate - Afr Amer 73 mL/min (>60); Estimated Creatinine Clearance 66.82 ml/min; Globulin 4.4 g/dL (2.2-4.2); Glucose 257 mg/dL (74-106); Potassium 2.8 mmol/L (3.5-5.1); Protein, Total 5.8 g/dL (6.4-8.2); Sodium Level 149 mmol/L (136-145)
[2021-02-16] MEDS: 0.9% Saline Lock 10 ML Syringe IV ×3 (05:22→22:24)
[2021-02-16] MEDS: Hydrocortisone Sod Succinate 100 MG/2 ML Vial IV (05:22)
[2021-02-16] MEDS: Menthol/Lanolin/Calamine/Znox 113 GM Tube 1 APPLIC TOPICAL ×3 (05:23→21:41)
[2021-02-16] MEDS: Potassium Chloride Oral Soln 20 MEQ/15 ML UDC 40 MEQ PO (06:19)
--- NOTE | 2021-02-16 06:55 | CPS ---
Pt was placed on SBT at 0515 by retail shift manager RT.
[2021-02-16 07:36] LABS: Allen Test Positive; Base Excess 5 mmol/L (-2 to +2); Bicarbonate 28.9 mmol/L (22-26); Blood Gas Specimen Type ART; FI02 35; Mode PS; O2 Delivery Device Adult Vent; PEEP 5; PO2 52 mmHG (75-100); PS 5; SITE L Radial; SO2 88 % (95-99); Total Carbon Dioxide 30 mmol/L; pCO2 41.8 mmHg (35-45); pH 7.45 (7.35-7.45)
[2021-02-16 07:45] LABS: Bedside Glucose 220 mg/dL (70-110)
--- NOTE | 2021-02-16 07:48 | NURSING ---
0730-Patient passed SAT and SBT. RN and RT are at bedside preparing patient for extubation according to MD order. 0740- Patient successfully extubated and on 4L/NC maintaining O2 sats above 90%. Will continue to monitor and encourage coughing and deep breathing.
--- NOTE | 2021-02-16 08:07 | NURSING ---
0800- Called and updated Carmella on patient's condition. Spoke with daysarft RN about visitation today for rounds and she agreed. I told Carmella to go ahead and come in at 0900 for rounds this morning.
--- NOTE | 2021-02-16 08:32 | PN.CC_ITS ---
Assessment & Plan Assessment/Plan (1) Acute respiratory failure with hypoxia: (2) Pneumonia due to COVID-19 virus: PLAN: RECOMMENDATIONS: 1. Wean supplemental oxygen as tolerated 2. Possibly challenge with IV Lasix tomorrow 3. P.o. intake per surgery 4. Continue antimicrobials per surgery 5. Wean pressors as tolerated with map goal of 65 6. Continue chest tube to suction 7. Transition to fentanyl as needed IMPRESSIONS: 1. Acute hypoxemic respiratory failure secondary to COVID-19 pneumonia/tension pneumothorax The patient presented to the hospital with progressive Covid symptoms after having been initially diagnosed at the end of December. He was therefore outside of the window for remdesivir. CTA chest showed no evidence for pulmonary embolism. The patient was emergently intubated in the emergency depa rtment. The patient has completed his treatment courses for his Covid. He remains on antimicrobials for the MSSA isolated from his sputum. The patient improved from a respiratory perspective and was able to be extubated on February 06 and February 16. On 02/12/2021, patient with subsequent respiratory failure following surgery. Patient successfully extubated. Continue chest tube to suction. Monitor leak. 2. Bowel perforation s/p exploratory laparotomy with right hemicolectomy for ischemic complicated by evisceration with anastomotic leak POD 4 Patient back from surgery on 02/12/2021 secondary to evisceration with anastomotic leak and subsequent septic shock. Patient's pressors have improved, but are still significant. We will continue with volume optimization and antibiotics. Patient remains on Zosyn therapy. This should provide significant coverage, but will need to extend stop date beyond previous target to 10 days post surgery. 3. Acute kidney injury Likely prerenal and postrenal in etiology. We will have to watch closely given the development of septic shock secondary to problem #2. Creatinine has increased slightly over the last 24 hours, but pressors are improving. Adequate urine output. Improvement following Colon exchange. 4. Obesity/hypertension/hyperlipidemia Complicates care, management, recovery and prognosis. Continue home medications as indicated. TIME: 35 minutes critical care time spent addressing patient's septic shock, acute hypoxic respiratory failure, bowel evisceration with anastomotic leak, review of all data and collaboration with care team (7 AM to 8 AM) Subjective Subjective Patient did well overnight. No acute hemodynamic issues were reported. There was some concern for decreased urine output. Colon was removed and found to have significant sediment. Patient put out over a liter following its removal. Patient was able to pass a spontaneous breathing trial this morning and was successfully extubated Objective Data Objective Data Vital Signs: Vital Signs Temp Pulse Resp BP Pulse Ox 36.9 C 77 28 H 112/71 93 02/16/21 08:00 02/16/21 08:00 02/16/21 08:00 02/16/21 08:00 02/16/21 08:00 Oxygen Flow Rate (L/min) 4 Oxygen Delivery Method Nasal Cannula Weight: 83.7 kg Body Mass Index (BMI) 27.1 Intake & Output: Intake and Output for Last 24 Hours 02/14/21 02/15/21 02/16/21 23:59 23:59 23:59 Intake Total 1240.02 / 1322.70 1308.82 / 1378.82 448.00 / 448.00 Output Total 3180 / 3730 1570 / 2170 1400 / 1400 Balance -1939.98 / -2407.30 -261.18 / -791.18 -952.00 / -952.00 Medical Nutrition Assessment Dietitian: Malnutrition Criteria Met Start: 02/15/21 12:47 Freq: Status: Active Protocol: Document 02/15/21 12:48 AG (Rec: 02/15/21 12:48 AG [id number]) Nutrition Malnutrition Evidence of Malnutrition Exists Yes Malnutrition (severe): Acute Illness/Injury Evidenced By Suboptimal Energy Intake ( Severe),Weight Loss (Severe) Intake Problem Inadequate Enteral Nutrition Infusion Etiology - Signs/Symptoms - Status Inactive Problem Inadequate Oral Intake Etiology related to GI dysfunction, mechanical intubation Signs/Symptoms as evidenced by no nutritional intake > 7 days Status Active Problem Clinical Problem Acute Disease or Injury Related Malnutrition Etiology severe acute malnutrition r/t inadequate energy intake d.t resp. failure d/t COVID-19, bowel perforation Signs/Symptoms as evidenced by estimated PO intake meeting <50% of estimated nutritional needs >5 days; unintentional wt loss of 19.7#/9.4% <1 month Status Active Problem Recommendation Dietitian Recommendations/Changes 1) Will order trophic enteral nutrition support until tolerance of EN is established - Vital HP via OGT at 25mL/ hour w/ 30mL H2O flush every 4 hours to provide 600 calories , 52 g protein, and 681mL fluid/day. 2) When extubated, recommend advance diet as tolerated to transitional; consistency per [employer] PR[employer] MACHINE OPERATOR. 120mL Ensure 4x/day w/ medpass for additional calories/protein if consumed. Lab / Micro Data Result Diagrams: 02/16/21 03:35 02/16/21 03:35 Labs: Laboratory Results - last 24 hr 02/15/21 11:25: POC Glucose 224 H 02/15/21 17:14: POC Glucose 232 H 02/16/21 00:47: POC Glucose 260 H 02/16/21 03:35: WBC 11.6 H, RBC 2.61 L, Hgb 8.6 L, Hct 26.0 L, MCV 99.6 H, MCH 33.0 H, MCHC 33.1, RDW Std Deviation 50.2 H, RDW Coeff of Blanca 13.9, Plt Count 237, MPV 10.4, Immature Gran % (Auto) 1.600 H, Neut % (Auto) 86.1 H, Lymph % (Auto) 9.0 L, Warrick % (Auto) 2.9, Eos % (Auto) 0.1, Baso % (Auto) 0.3, Absolute Neuts (auto) 10.0 H, Absolute Lymphs (auto) 1.04, Nucleated RBC % 1.3, Differential Comment SCANNED 02/16/21 03:35: Sodium 149 H, Potassium 2.8 L, Chloride 114 H, Carbon Dioxide 31.0, Anion Gap 4 L, BUN 60 H, Creatinine 1.32 H, Estim Creat Clear Calc 66.82, Est GFR (MDRD) Af Amer 73, Est GFR (MDRD) Non-Af 60, BUN/Creatinine Ratio 45.5 H , Glucose 257 H, Calcium 8.5, Total Bilirubin 0.40, AST 955 H, ALT 1756 H, Alkaline Phosphatase 124 H, Total Protein 5.8 L, Albumin 1.4 L, Globulin 4.4 H, Albumin/Globulin Ratio 0.3 L 02/16/21 05:36: POC Glucose 220 H Micro: Microbiology 02/13/21 06:00 Sputum, Induced/Lukens Gram Stain - Final 02/13/21 06:00 Sputum, Induced/Lukens Respiratory Culture - Final Staphylococcus aureus 02/07/21 18:00 Stool Stool Occult Blood (MATILDA) - Final Occult Blood Positive 02/05/21 09:31 Sputum, Induced/Lukens Gram Stain - Final 02/05/21 09:31 Sputum, Induced/Lukens Respiratory Culture - Final Staphylococcus aureus 02/01/21 11:25 Blood Culture (Wb) - Central Line Blood Culture - Final No growth in 5 days. 02/01/21 11:45 Blood Culture (Wb) - Left Wrist Blood Culture - Final No growth in 5 days. 02/01/21 11:30 Sputum, Induced/Lukens Gram Stain - Final 02/01/21 11:30 Sputum, Induced/Lukens Respiratory Culture - Final Staphylococcus aureus 01/27/21 18:30 Blood Culture (Wb) - Anticubital Left Blood Culture - Final No growth in 5 days. 01/27/21 18:33 Blood Culture (Wb) - Central Line Blood Culture - Final No growth in 5 days. 01/30/21 13:20 Stool C. difficile DNA Amplification - Final 01/28/21 08:20 Sputum, Induced/Lukens Gram Stain - Final 01/28/21 08:20 Sputum, Induced/Lukens Respiratory Culture - Final Mixed normal respiratory eulalia. No Streptococcus pneumoniae, beta-hemolytic Streptococcus or Staphylococcus aureus isolated. 01/27/21 21:40 Urine Catheter - Catheter Urine Culture - Final Culture exhibits no growth. 01/27/21 19:30 Mucosa - Nose Respiratory Panel (PCR) - Final 01/27/21 19:25 Urine Catheter - Catheter Legionella Antigen - Final 01/27/21 19:25 Urine Catheter - Catheter Streptococcus pneumoniae Antigen (M - Final ABG Data ABG results: ABG 02/15/21 02/16/21 02:18 07:30 Specimen Type Cancelled ART Sample Site Cancelled L Radial pH Cancelled 7.45 Bicarbonate Actual Cancelled 28.9 H Total CO2 Cancelled 30 Base Excess Cancelled 5 H O2 Saturation Cancelled 88 L O2 % Cancelled 35 ABG pCO2 Cancelled 41.8 ABG pO2 Cancelled 52 L Patrick Test Cancelled Positive Respiration Rate Cancelled O2 Delivery Device Cancelled Adult Vent Liter Flow Cancelled Minute Volume Cancelled Vent Mode Cancelled PS Inspiratory Time Cancelled Expiratory Time Cancelled Tidal Volume Cancelled Mean Airway Pressure Cancelled POC PEEP Cancelled 5 Peak Inspir Pressure Cancelled POC Pressure Suppt Cancelled 5 Pressure Control Cancelled Pressure High Cancelled Pressure Low Cancelled Time High Cancelled Time Low Cancelled EPAP Cancelled IPAP Cancelled Blood Gas Comments Cancelled Crit Call To/Read Back Cancelled Blood Gas Notified Whom Cancelled Blood Gas Notified Time Cancelled Clinical Comments Cancelled Radiography Diagnostic Testing: Radiology Impression Chest X-Ray 02/15/21 05:55 IMPRESSION: No significant pneumothorax is seen at this time. All the support tubes are unchanged. Residual subcutaneous emphysema overlying the right lateral chest wall as well as the lower cervical region on the right side. Electronically Signed: Simón Saha MD at 8:38 EDT , Service support , Physical Exam Const General Appearance: lethargic, intubated and patient mechanically ventilated Nutritional Appearance: obese HEENT normocephalic and head/scalp atraumatic Eyes PERRL, EOMs intact bilaterally and conjunctivae normal Neck supple General: trachea midline and CVC in place Chest Chest: crepitus and chest tube right (Continuous leak); Negative for symmetrical chest wall rise Resp Auscultation: rhonchi and diminished lung sounds; Negative for rales or wheezes Cardio regular rate and regular rhythm Heart Sounds: Negative for gallop, murmur or rub GI GI Narrative: Open bowel wound. New ostomy with some output noted. Inspection: ostomy present Auscultation: normoactive bowel sounds Extremity no clubbing, cyanosis or edema Skin no rashes or lesions noted Neuro moves all extremities and no focal motor deficits Psych cooperative Charges/Coding Multi Select Codes Hospitalists' Procedures Procedures: 29376 Critial Care 1st Hr
[2021-02-16] MEDS: CHLORHEXIDINE GLUC 2% CLOTH 1 EACH TOWELETTE TOPICAL (09:05)
--- NOTE | 2021-02-16 09:45 | PN.HOSP_ITS ---
Subjective Subjective Doing well, no extubated this morning and is no longer on any pressor support. He still has little bit of an air leak in his chest tube. Objective Data Objective Data Vital Signs: Vital Signs Temp Pulse Resp BP Pulse Ox 98.5 F 72 36 H 116/79 97 02/16/21 08:00 02/16/21 09:00 02/16/21 09:00 02/16/21 09:00 02/16/21 09:00 Oxygen Flow Rate (L/min) 4 Oxygen Delivery Method Nasal Cannula Weight: 184 lb 8.43 oz Body Mass Index (BMI) 27.1 Intake & Output: Intake and Output for Last 24 Hours 02/15/21 02/16/21 02/17/21 03:59 03:59 03:59 Intake Total 1379.54 / 1397.04 1121.70 / 1131.70 298.00 / 298.00 Output Total 3280 / 3280 1620 / 1620 800 / 800 Balance -1900.46 / -1882.96 -498.30 / -488.30 -502.00 / -502.00 Medical Nutrition Assessment Dietitian: Malnutrition Criteria Met Start: 02/15/21 12:47 Freq: Status: Active Protocol: Document 02/15/21 12:48 AG (Rec: 02/15/21 12:48 [id number]) Nutrition Malnutrition Evidence of Malnutrition Exists Yes Malnutrition (severe): Acute Illness/Injury Evidenced By Suboptimal Energy Intake ( Severe),Weight Loss (Severe) Intake Problem Inadequate Enteral Nutrition Infusion Etiology - Signs/Symptoms - Status Inactive Problem Inadequate Oral Intake Etiology related to GI dysfunction, mechanical intubation Signs/Symptoms as evidenced by no nutritional intake > 7 days Status Active Problem Clinical Problem Acute Disease or Injury Related Malnutrition Etiology severe acute malnutrition r/t inadequate energy intake d.t resp. failure d/t COVID-19, bowel perforation Signs/Symptoms as evidenced by estimated PO intake meeting <50% of estimated nutritional needs >5 days; unintentional wt loss of 19.7#/9.4% <1 month Status Active Problem Recommendation Dietitian Recommendations/Changes 1) Will order trophic enteral nutrition support until tolerance of EN is established - Vital HP via OGT at 25mL/ hour w/ 30mL H2O flush every 4 hours to provide 600 calories , 52 g protein, and 681mL fluid/day. 2) When extubated, recommend advance diet as tolerated to transitional; consistency per MUSICIAN INSTRUMENTAL. 120mL Ensure 4x/day w/ medpass for additional calories/protein if consumed. Lab / Micro Data Result Diagrams: 02/16/21 03:35 02/16/21 03:35 Labs: Laboratory Results - last 24 hr 02/15/21 11:25: POC Glucose 224 H 02/15/21 17:14: POC Glucose 232 H 02/16/21 00:47: POC Glucose 260 H 02/16/21 03:35: WBC 11.6 H, RBC 2.61 L, Hgb 8.6 L, Hct 26.0 L, MCV 99.6 H, MCH 33.0 H, MCHC 33.1, RDW Std Deviation 50.2 H, RDW Coeff of Blanca 13.9, Plt Count 237, MPV 10.4, Immature Gran % (Auto) 1.600 H, Neut % (Auto) 86.1 H, Lymph % (Auto) 9.0 L, Barnes % (Auto) 2.9, Eos % (Auto) 0.1, Baso % (Auto) 0.3, Absolute Neuts (auto) 10.0 H, Absolute Lymphs (auto) 1.04, Nucleated RBC % 1.3, Differential Comment SCANNED 02/16/21 03:35: Sodium 149 H, Potassium 2.8 L, Chloride 114 H, Carbon Dioxide 31.0, Anion Gap 4 L, BUN 60 H, Creatinine 1.32 H, Estim Creat Clear Calc 66.82, Est GFR (MDRD) Af Amer 73, Est GFR (MDRD) Non-Af 60, BUN/Creatinine Ratio 45.5 H , Glucose 257 H, Calcium 8.5, Total Bilirubin 0.40, AST 955 H, ALT 1756 H, Alkaline Phosphatase 124 H, Total Protein 5.8 L, Albumin 1.4 L, Globulin 4.4 H, Albumin/Globulin Ratio 0.3 L 02/16/21 05:36: POC Glucose 220 H Micro: Microbiology 02/13/21 06:00 Sputum, Induced/Lukens Gram Stain - Final 02/13/21 06:00 Sputum, Induced/Lukens Respiratory Culture - Final Staphylococcus aureus 02/07/21 18:00 Stool Stool Occult Blood (MATILDA) - Final Occult Blood Positive 02/05/21 09:31 Sputum, Induced/Lukens Gram Stain - Final 02/05/21 09:31 Sputum, Induced/Lukens Respiratory Culture - Final Staphylococcus aureus 02/01/21 11:25 Blood Culture (Wb) - Central Line Blood Culture - Final No growth in 5 days. 02/01/21 11:45 Blood Culture (Wb) - Left Wrist Blood Culture - Final No growth in 5 days. 02/01/21 11:30 Sputum, Induced/Lukens Gram Stain - Final 02/01/21 11:30 Sputum, Induced/Lukens Respiratory Culture - Final Staphylococcus aureus 01/27/21 18:30 Blood Culture (Wb) - Anticubital Left Blood Culture - Final No growth in 5 days. 01/27/21 18:33 Blood Culture (Wb) - Central Line Blood Culture - Final No growth in 5 days. 01/30/21 13:20 Stool C. difficile DNA Amplification - Final 01/28/21 08:20 Sputum, Induced/Lukens Gram Stain - Final 01/28/21 08:20 Sputum, Induced/Lukens Respiratory Culture - Final Mixed normal respiratory eulalia. No Streptococcus pneumoniae, beta-hemolytic Streptococcus or Staphylococcus aureus isolated. 01/27/21 21:40 Urine Catheter - Catheter Urine Culture - Final Culture exhibits no growth. 01/27/21 19:30 Mucosa - Nose Respiratory Panel (PCR) - Final 01/27/21 19:25 Urine Catheter - Catheter Legionella Antigen - Final 01/27/21 19:25 Urine Catheter - Catheter Streptococcus pneumoniae Antigen (M - Final ABG Data ABG results: ABG 02/15/21 02/16/21 02:18 07:30 Specimen Type Cancelled ART Sample Site Cancelled L Radial pH Cancelled 7.45 Bicarbonate Actual Cancelled 28.9 H Total CO2 Cancelled 30 Base Excess Cancelled 5 H O2 Saturation Cancelled 88 L O2 % Cancelled 35 ABG pCO2 Cancelled 41.8 ABG pO2 Cancelled 52 L Patrick Test Cancelled Positive Respiration Rate Cancelled O2 Delivery Device Cancelled Adult Vent Liter Flow Cancelled Minute Volume Cancelled Vent Mode Cancelled PS Inspiratory Time Cancelled Expiratory Time Cancelled Tidal Volume Cancelled Mean Airway Pressure Cancelled POC PEEP Cancelled 5 Peak Inspir Pressure Cancelled POC Pressure Suppt Cancelled 5 Pressure Control Cancelled Pressure High Cancelled Pressure Low Cancelled Time High Cancelled Time Low Cancelled EPAP Cancelled IPAP Cancelled Blood Gas Comments Cancelled Crit Call To/Read Back Cancelled Blood Gas Notified Whom Cancelled Blood Gas Notified Time Cancelled Clinical Comments Cancelled Physical Exam Const alert and no apparent distress HEENT normocephalic and moist oral mucous membranes Eyes PERRL, EOMs intact bilaterally and conjunctivae normal Neck supple and no JVD Chest Chest: chest tube right Resp normal respiratory effort, no retractions and no use of accessory muscles Auscultation: rhonchi and diminished lung sounds; Negative for crackles, rales or wheezes Cardio regular rate, regular rhythm, S1 normal heart sound, S2 normal heart sound and no murmurs GI soft to palpation, non-tender and non-distended; Negative for hepatosplenomegaly GI Narrative: Ostomy intact Extremity no clubbing, cyanosis or edema Skin no rashes or lesions noted Neuro no focal motor deficits and no sensory deficits noted Psych Appearance: appropriate and intubated Mood & Affect: flat affect Assessment & Plan Assessment/Plan (1) Acute respiratory failure with hypoxia: PLAN: 1. Acute hypoxic respiratory failure/tension pneumothorax ?Secondary to SARS-CoV-2 pneumonia. Patient admitted to the intensive care unit placed on ventilator. Patient was outside the window for remdesivir. Was started on Decadron. Did receive a dose of Tocilizumab -02/06/2021; weaned off the vent - 02/07/2021; patient was placed back on BiPAP following prolonged coughing episode complicated by desaturation.Patient was placed empirically on vancomycin after his cultures came back positive for staph final identification and sensitivities pending 02/08/2021: Continue with air Vo. Appreciate infectious disease and communication and outreach manager assistance 02/09/2021: Stable continue with air Vo, Will continue with Lasix as needed -02/10/2021: Currently on nasal cannula, will continue to encourage pulmonary t oilet, also recommend proning when able. Needs to wear BiPAP at night and this was discussed. Continue with Lasix twice daily -02/11/2021: Continue to wean oxygen -02/12/2021: We will continue to wean oxygen though he does need to go back to the OR today for fascial closure and may need to be intubated secondary to his respiratory status with Covid -02/13/2021: Remains intubated today secondary to high pressor requirement but off sedation -02/14/2021: He is down to 5 mics per minute of Levophed however he was tachypneic and a little bit tachycardic during his spontaneous breathing trial even though he passed it therefore we will keep him intubated for another 24 hours -02/15/2021: Developed a tension pneumothorax overnight and the chest tube was placed with significant air leak. Will attempt to wean his Levophed today and if possible extubate tomorrow as he will unlikely be able to close his air leak while still on positive pressure ventilation. -02/16/2021: Extubated today. Continue with chest tube as are still an air leak. 2. Severe sepsis ?Secondary to SARS-CoV-2 pneumonia with superimposed bacterial pneumonia (staph pneumonia) as well as perforated cecum. Patient did receive IV fluid resuscitation and subsequently started on broad-spectrum antibiotic therapy with Zosyn and vancomycin with consultation placed to ID 02/08/2021: Continue with IV antibiotics, sputum culture with MSSA 02/11/2021: We will complete Zosyn tomorrow for a 10-day course. 02/12/2021: May need to continue his Zosyn for another 24 hours secondary to the needing to go back to the OR today for fascial closure -02/13/2021: Though he has completed Zosyn for his MSSA pneumonia, he did have to have repeat surgery yesterday. We will continue 3. Perforated cecum with very dilated ascending and transverse colon ?Patient underwent exploratory laparotomy with extended right hemicolectomy on 02/04/[address] Wood -02/06/2021 postoperative day 2. Patient complains of some abdominal discomfort his surgical incision however remains clean dry and intact -02/07/2021. Patient has return of bowel function plan is for patient to be started on oral diet once he passes his bedside swallow eval 02/08/2021: Continue with IV Zosyn to cover both MSSA as well as his perforated cecum. Continue to evaluate with speech therapy, he did fail yesterday 02/10/2021: Was evaluated by speech therapy in the past, he is clear to take clear liquids. 02/12/2021: See #2 02/13/2021: Status post evisceration and anastomotic leak repair with ileostomy on 02/12/2021 -02/14/2021: Continue with Joseph appreciate surgical assistance 4. Hyperglycemia ?Secondary to chronic steroid use Patient is currently on long-acting insulin in addition to sliding scale coverage 5. Essential hypertension ?Blood pressure on the low side patient antihypertensives never restarted 6. Dyslipidemia ?On statin therapy prior to admission DVT: Lovenox Charges/Coding Visit Charges Inpatient E&M: 17730 Subs Hosp L2
[2021-02-16] MEDS: Furosemide 40 MG/4 ML Vial IV ×2 (10:00→17:13)
[2021-02-16] MEDS: Enoxaparin 30 MG/0.3 ML Syringe SC ×2 (10:00→21:28)
[2021-02-16] MEDS: fentaNYL 100 MCG/2 ML Ampul 50 MCG IV ×3 (10:55→22:19)
--- NOTE | 2021-02-16 12:05 | CASEMGMT ---
Social Work SW attended ICU rounds. Pt present for rounds. After rounds SW met with pt and and provided support. Discharge plan is for TCU when pt is medically ready. Precert will need obtained but has not been started at this time as pt not medically ready. Plan: TCU, pending precert and medically ready HENNA Oliver
[2021-02-16 12:26] LABS: Bedside Glucose 216 mg/dL (70-110)
--- NOTE | 2021-02-16 13:43 | PCM.PN.ID ---
Physical Exam Narrative Extubated, breathing ok, coughing up some stuff. No fever. Const alert General Appearance: cooperative Resp Auscultation: rhonchi Cardio regular rate and regular rhythm GI normal to inspection, nondistended, normoactive bowel sounds Skin no rashes or lesions noted ID ID: Route of nutrition/ use of supplements: [] Nutritional Intake: [] IV Site: [] Colon Catheter: [] Assessment & Plan Assessment/Plan (1) Pneumonia due to COVID-19 virus: PLAN: Sx started around 01/15. Isolate for 20 days from that point. Unvaccinated. Encouraged vaccine once recovered. Cxs neg. Wbc remains elevated but improved. UAg neg. CT neg for PE. Given toci x1 on 01/27. Completed dex. Sputum with mssa. Now with bowel perf, taken to OR 02/[address] Wood for extended R hemicolectomy. Possible side effect of tocilizumab, has been reported post marketing; d/w pharmacy, report sent. On zosyn. Taken back to OR 02/12 for fascial dehiscence and small bowel evisceration. Now with tension pneumo requiring chest tube. Off vent now, down to 4L NC. Will follow (2) Acute respiratory failure with hypoxia: (3) Perforated bowel:
[2021-02-16 17:25] LABS: Bedside Glucose 215 mg/dL (70-110)
[2021-02-16] MEDS: MELATONIN 3 MG TABLET PO (21:29)
[2021-02-17] VITALS (30 sets, daily range): BP systolic 95–143; BP diastolic 57–101; PULSE 75–100; RESP 18–44; TEMP 36.1–36.6; O2SAT 91–99
[2021-02-17] MEDS: Insulin Lispro 100 UNIT/ML INSULN.PEN SC ×5 (00:20→22:50)
[2021-02-17 00:31] LABS: Bedside Glucose 180 mg/dL (70-110)
[2021-02-17] MEDS: fentaNYL 100 MCG/2 ML Ampul 50 MCG IV ×3 (04:45→22:39)
[2021-02-17 06:40] LABS: Bedside Glucose 162 mg/dL (70-110)
--- NOTE | 2021-02-17 07:23 | PN.CC_ITS ---
Assessment & Plan Assessment/Plan (1) Acute respiratory failure with hypoxia: (2) Pneumonia due to COVID-19 virus: PLAN: RECOMMENDATIONS: 1. Continue to wean supplemental oxygen to maintain saturations at or above 90%. 2. Dietary advancement per surgery recommendations. 3. Continue chest tube to wall suction, given persistent air leak. 4. Continue antimicrobials. 5. Continue appropriate prophylaxis. 6. Encourage incentive spirometer use and mobilize patient as tolerated. 7. Discontinue diuretics and start D5W, given rising sodium and chloride. 8. Potassium repletion as ordered. IMPRESSIONS: 1. Acute hypoxemic respiratory failure secondary to COVID-19 pneumonia/tension pneumothorax The patient presented to the hospital with progressive Covid symptoms after having been initially diagnosed at the end of December. He was therefore outside of the window for remdesivir. CTA chest showed no evidence for pulmonary embolism. The patient was emergently intubated in the emergency department. The patient has completed his treatment courses for his Covid. He remains on antimicrobials for the MSSA isolated from his sputum. The patient improved from a respiratory perspective and was able to be extubated on February 06 and again on February 16. The patient's time spent on the ventilator was complicated by the development of a tension pneumothorax, which did require tube thoracotomy. He does continue to have a persistent air leak. Chest tube will be maintained to wall suction. 2. Bowel perforation s/p exploratory laparotomy with right hemicolectomy for ischemic complicated by evisceration with anastomotic leak The patient was taken back to surgery on 02/12/2021 secondary to evisceration with anastomotic leak and subsequent septic shock. We will continue with volume optimization and antibiotics. The patient remains on Zosyn therapy. This should provide significant coverage, but will need to extend stop date beyond previous target to 10 days post surgery. 3. Hypernatremia/hyperchloremia/hypokalemia Stop diuretics for now and start D5W. Recheck chemistry profile in the morning. Potassium repletion as ordered. 4. Obesity/hypertension/hyperlipidemia Complicates care, management, recovery and prognosis. Continue home medications as indicated. This note was generated with [employer] Match[employer] software. It may contain incorrect words, spelling, and punctuation that were not noted in checking the note before signing. Subjective Subjective The patient was seen and examined at the bedside this morning. Events from the last 24 hours have been reviewed. The patient is currently afebrile, hemodynamically stable and maintaining appropriate oxygen saturations on 2 L/min via nasal cannula. The patient has done well following extubation yesterday. The patient is documented to be overall net -4.9 L for the hospitalization. The patient does report some baseline mild dyspnea and abdominal discomfort. Objective Data Objective Data The patient's most recent lab work, culture data and imaging studies have all been personally reviewed. Sputum culture dated February 13 was positive for MSSA. Vital Signs: Vital Signs Temp Pulse Resp BP Pulse Ox 97.4 F L 90 35 H 126/81 H 95 02/17/21 03:00 02/17/21 07:00 02/17/21 07:00 02/17/21 07:00 02/17/21 07:00 Oxygen Flow Rate (L/min) 2 Oxygen Delivery Method Nasal Cannula Weight: 81.6 kg Body Mass Index (BMI) 27.1 Intake & Output: Intake and Output for Last 24 Hours 02/15/21 02/16/21 02/17/21 23:59 23:59 23:59 Intake Total 1308.82 / 1378.82 868.00 / 868.00 80 / 80 Output Total 1570 / 2170 4225 / 4225 400 / 400 Balance -261.18 / -791.18 -3357.00 / -3357.00 -320 / -320 Medical Nutrition Assessment Dietitian: Malnutrition Criteria Met Start: 02/15/21 12:47 Freq: Status: Active Protocol: Document 02/15/21 12:48 AG (Rec: 02/15/21 12:48 AG [id number]) Nutrition Malnutrition Evidence of Malnutrition Exists Yes Malnutrition (severe): Acute Illness/Injury Evidenced By Suboptimal Energy Intake ( Severe),Weight Loss (Severe) Intake Problem Inadequate Enteral Nutrition Infusion Etiology - Signs/Symptoms - Status Inactive Problem Inadequate Oral Intake Etiology related to GI dysfunction, mechanical intubation Signs/Symptoms as evidenced by no nutritional intake > 7 days Status Active Problem Clinical Problem Acute Disease or Injury Related Malnutrition Etiology severe acute malnutrition r/t inadequate energy intake d.t resp. failure d/t COVID-19, bowel perforation Signs/Symptoms as evidenced by estimated PO intake meeting <50% of estimated nutritional needs >5 days; unintentional wt loss of 19.7#/9.4% <1 month Status Active Problem Recommendation Dietitian Recommendations/Changes 1) Will order trophic enteral nutrition support until tolerance of EN is established - Vital HP via OGT at 25mL/ hour w/ 30mL H2O flush every 4 hours to provide 600 calories , 52 g protein, and 681mL fluid/day. 2) When extubated, recommend advance diet as tolerated to transitional; consistency per METALLURGICAL ENGINEER. 120mL Ensure 4x/day w/ medpass for additional calories/protein if consumed. Lab / Micro Data Attestation: I reviewed the patient's lab results. Result Diagrams: 02/17/21 04:05 02/17/21 04:05 Labs: Laboratory Results - last 24 hr 02/16/21 05:36: POC Glucose 220 H 02/16/21 12:16: POC Glucose 216 H 02/16/21 17:13: POC Glucose 215 H 02/17/21 00:18: POC Glucose 180 H 02/17/21 06:29: POC Glucose 162 H Micro: Microbiology 02/13/21 06:00 Sputum, Induced/Lukens Gram Stain - Final 02/13/21 06:00 Sputum, Induced/Lukens Respiratory Culture - Final Staphylococcus aureus 02/07/21 18:00 Stool Stool Occult Blood (MATILDA) - Final Occult Blood Positive 02/05/21 09:31 Sputum, Induced/Lukens Gram Stain - Final 02/05/21 09:31 Sputum, Induced/Lukens Respiratory Culture - Final Staphylococcus aureus 02/01/21 11:25 Blood Culture (Wb) - Central Line Blood Culture - Final No growth in 5 days. 02/01/21 11:45 Blood Culture (Wb) - Left Wrist Blood Culture - Final No growth in 5 days. 02/01/21 11:30 Sputum, Induced/Lukens Gram Stain - Final 02/01/21 11:30 Sputum, Induced/Lukens Respiratory Culture - Final Staphylococcus aureus 01/27/21 18:30 Blood Culture (Wb) - Anticubital Left Blood Culture - Final No growth in 5 days. 01/27/21 18:33 Blood Culture (Wb) - Central Line Blood Culture - Final No growth in 5 days. 01/30/21 13:20 Stool C. difficile DNA Amplification - Final 01/28/21 08:20 Sputum, Induced/Lukens Gram Stain - Final 01/28/21 08:20 Sputum, Induced/Lukens Respiratory Culture - Final Mixed normal respiratory eulalia. No Streptococcus pneumoniae, beta-hemolytic Streptococcus or Staphylococcus aureus isolated. 01/27/21 21:40 Urine Catheter - Catheter Urine Culture - Final Culture exhibits no growth. 01/27/21 19:30 Mucosa - Nose Respiratory Panel (PCR) - Final 01/27/21 19:25 Urine Catheter - Catheter Legionella Antigen - Final 01/27/21 19:25 Urine Catheter - Catheter Streptococcus pneumoniae Antigen (M - Final ABG Data ABG results: ABG 02/16/21 07:30 Specimen Type ART Sample Site L Radial pH 7.45 Bicarbonate Actual 28.9 H Total CO2 30 Base Excess 5 H O2 Saturation 88 L O2 % 35 ABG pCO2 41.8 ABG pO2 52 L Patrick Test Positive O2 Delivery Device Adult Vent Vent Mode PS POC PEEP 5 POC Pressure Suppt 5 Physical Exam Const alert General Appearance: cooperative and ill appearing HEENT normocephalic and head/scalp atraumatic Eyes PERRL, EOMs intact bilaterally and conjunctivae normal Neck supple General: trachea midline Chest Chest Narrative: Persistent air leak noted from chest tube. Chest: chest tube Resp Effort and Inspection: able to speak in complete sentences and tachypneic Auscultation: diminished lung sounds Cardio regular rate and regular rhythm GI soft to palpation Inspection: ostomy present Extremity no clubbing, cyanosis or edema Skin no rashes or lesions noted Neuro moves all extremities and no focal motor deficits Psych Mood & Affect: anxious Charges/Coding Visit Charges Inpatient E&M: 82076 Subs Hosp L3
[2021-02-17 07:31] LABS: Absolute Lymphocyte Count 1.89 X10^3/uL (0.83-4.51); Basophil# 0.05 X10^3/uL; Basophil% 0.4 % (0-1); Eosinophil# 0.14 X10^3/uL; Hematocrit 30.5 % (40-54); Hemoglobin 9.8 g/dL (13.0-16.5); Lymphocyte # 1.89 X10^3/ul (0.83-4.51); Lymphocyte % 13.5 % (19-41); Mean Corp Hgb Conc 32.1 g/dL (32-36); Mean Corpuscular Hgb 32.8 pg (27.0-32.0); Mean Platelet Vol. 10.8 fl (6.2-12.0); Monocyte# 0.41 X10^3/uL; Monocyte% 2.9 % (0-10); NRBC Flagged by Analyzer 2.3 % (0-5); Neutrophil # 10.96 X10^3/uL (2.7-7.7); Neutrophil % 78.3 % (47-70); Platelet Count 321 K/mm3 (150-450); RBC Distribution Width CV 13.7 % (11.6-14.6); RBC Distribution Width SD 51.5 fl (35.1-43.9); Red Blood Count 2.99 M/mm3 (4.6-6.2)
[2021-02-17 07:53] LABS: ALB/GLOB Ratio 0.4 RATIO (0.9-2.4); AST(SGOT) 433 U/L (15-37); Alanine Aminotransfer ALT/SGPT 1547 U/L (16-61); Albumin, Serum 1.7 g/dL (3.2-5.0); Alkaline Phosphatase 146 U/L (45-117); Anion Gap 7 (5-15); BUN 45 mg/dL (7-18); Calcium,Total 9.2 mg/dL (8.5-10.1); Chloride 114 mmol/L (98-107); EST Glomerular Filtration Rate 83 mL/min (>60); Est Glom Filt Rate - Afr Amer 100 mL/min (>60); Estimated Creatinine Clearance 88.21 ml/min; Globulin 4.8 g/dL (2.2-4.2); Glucose 177 mg/dL (74-106); Potassium 3.1 mmol/L (3.5-5.1); Protein, Total 6.5 g/dL (6.4-8.2); Sodium Level 154 mmol/L (136-145)
--- NOTE | 2021-02-17 08:58 | PCM.PN.HOSP ---
Subjective Subjective No issues overnight, he is on 2 L nasal cannula he still has a little bit of an air leak from his chest tube Objective Data Objective Data Vital Signs: Vital Signs Temp Pulse Resp BP Pulse Ox 97.4 F L 90 35 H 126/81 H 95 02/17/21 03:00 02/17/21 07:00 02/17/21 07:00 02/17/21 07:00 02/17/21 07:00 Oxygen Flow Rate (L/min) 2 Oxygen Delivery Method Nasal Cannula Weight: 179 lb 14.355 oz Body Mass Index (BMI) 27.1 Intake & Output: Intake and Output for Last 24 Hours 02/16/21 02/17/21 02/18/21 03:59 03:59 03:59 Intake Total 1121.70 / 1131.70 768.00 / 768.00 Output Total 1620 / 1620 3625 / 3625 400 / 400 Balance -498.30 / -488.30 -2857.00 / -2857.00 -370 / -370 Medical Nutrition Assessment Dietitian: Malnutrition Criteria Met Start: 02/15/21 12:47 Freq: Status: Active Protocol: Document 02/15/21 12:48 AG (Rec: 02/15/21 12:48 AG [id number]) Nutrition Malnutrition Evidence of Malnutrition Exists Yes Malnutrition (severe): Acute Illness/Injury Evidenced By Suboptimal Energy Intake ( Severe),Weight Loss (Severe) Intake Problem Inadequate Enteral Nutrition Infusion Etiology - Signs/Symptoms - Status Inactive Problem Inadequate Oral Intake Etiology related to GI dysfunction, mechanical intubation Signs/Symptoms as evidenced by no nutritional intake > 7 days Status Active Problem Clinical Problem Acute Disease or Injury Related Malnutrition Etiology severe acute malnutrition r/t inadequate energy intake d.t resp. failure d/t COVID-19, bowel perforation Signs/Symptoms as evidenced by estimated PO intake meeting <50% of estimated nutritional needs >5 days; unintentional wt loss of 19.7#/9.4% <1 month Status Active Problem Recommendation Dietitian Recommendations/Changes 1) Will order trophic enteral nutrition support until tolerance of EN is established - Vital HP via OGT at 25mL/ hour w/ 30mL H2O flush every 4 hours to provide 600 calories , 52 g protein, and 681mL fluid/day. 2) When extubated, recommend advance diet as tolerated to transitional; consistency per LEAD MAINTENANCE TECHNICIAN. 120mL Ensure 4x/day w/ medpass for additional calories/protein if consumed. Lab / Micro Data Result Diagrams: 02/17/21 04:05 02/17/21 04:05 Labs: Laboratory Results - last 24 hr 02/16/21 12:16: POC Glucose 216 H 02/16/21 17:13: POC Glucose 215 H 02/17/21 00:18: POC Glucose 180 H 02/17/21 04:05: WBC 14.0 H, RBC 2.99 L, Hgb 9.8 L, Hct 30.5 L, MCV 102.0 H, MCH 32.8 H, MCHC 32.1, RDW Std Deviation 51.5 H, RDW Coeff of Blanca 13.7, Plt Count 321, MPV 10.8, Immature Gran % (Auto) 3.900 H, Neut % (Auto) 78.3 H, Lymph % (Auto) 13.5 L, [place] % (Auto) 2.9, Eos % (Auto) 1.0, Baso % (Auto) 0.4, Absolute Neuts (auto) 11.0 H, Absolute Lymphs (auto) 1.89, Nucleated RBC % 2.3 02/17/21 04:05: Sodium 154 H, Potassium 3.1 L, Chloride 114 H, Carbon Dioxide 33.0 H, Anion Gap 7, BUN 45 H, Creatinine 1.00, Estim Creat Clear Calc 88.21, Est GFR (MDRD) Af Amer 100, Est GFR (MDRD) Non-Af 83, BUN/Creatinine Ratio 45.0 H, Glucose 177 H, Calcium 9.2, Total Bilirubin 0.50, AST 433 H, ALT 1547 H, Alkaline Phosphatase 146 H, Total Protein 6.5, Albumin 1.7 L, Globulin 4.8 H, Albumin/Globulin Ratio 0.4 L 02/17/21 06:29: POC Glucose 162 H Micro: Microbiology 02/13/21 06:00 Sputum, Induced/Lukens Gram Stain - Final 02/13/21 06:00 Sputum, Induced/Lukens Respiratory Culture - Final Staphylococcus aureus 02/07/21 18:00 Stool Stool Occult Blood (MATILDA) - Final Occult Blood Positive 02/05/21 09:31 Sputum, Induced/Lukens Gram Stain - Final 02/05/21 09:31 Sputum, Induced/Lukens Respiratory Culture - Final Staphylococcus aureus 02/01/21 11:25 Blood Culture (Wb) - Central Line Blood Culture - Final No growth in 5 days. 02/01/21 11:45 Blood Culture (Wb) - Left Wrist Blood Culture - Final No growth in 5 days. 02/01/21 11:30 Sputum, Induced/Lukens Gram Stain - Final 02/01/21 11:30 Sputum, Induced/Lukens Respiratory Culture - Final Staphylococcus aureus 01/27/21 18:30 Blood Culture (Wb) - Anticubital Left Blood Culture - Final No growth in 5 days. 01/27/21 18:33 Blood Culture (Wb) - Central Line Blood Culture - Final No growth in 5 days. 01/30/21 13:20 Stool C. difficile DNA Amplification - Final 01/28/21 08:20 Sputum, Induced/Lukens Gram Stain - Final 01/28/21 08:20 Sputum, Induced/Lukens Respiratory Culture - Final Mixed normal respiratory eulalia. No Streptococcus pneumoniae, beta-hemolytic Streptococcus or Staphylococcus aureus isolated. 01/27/21 21:40 Urine Catheter - Catheter Urine Culture - Final Culture exhibits no growth. 01/27/21 19:30 Mucosa - Nose Respiratory Panel (PCR) - Final 01/27/21 19:25 Urine Catheter - Catheter Legionella Antigen - Final 01/27/21 19:25 Urine Catheter - Catheter Streptococcus pneumoniae Antigen (M - Final Physical Exam Const alert and no apparent distress HEENT normocephalic and moist oral mucous membranes Eyes PERRL, EOMs intact bilaterally and conjunctivae normal Neck supple and no JVD Chest Chest: chest tube right Resp normal respiratory effort, no retractions and no use of accessory muscles Auscultation: rhonchi and diminished lung sounds; Negative for crackles, rales or wheezes Cardio regular rate, regular rhythm, S1 normal heart sound, S2 normal heart sound and no murmurs GI soft to palpation, non-tender and non-distended; Negative for hepatosplenomegaly GI Narrative: Ostomy intact Extremity no clubbing, cyanosis or edema Skin no rashes or lesions noted Neuro no focal motor deficits and no sensory deficits noted Psych Appearance: appropriate Mood & Affect: flat affect Assessment & Plan Assessment/Plan (1) Acute respiratory failure with hypoxia: PLAN: 1. Acute hypoxic respiratory failure/tension pneumothorax ?Secondary to SARS-CoV-2 pneumonia. Patient admitted to the intensive care unit placed on ventilator. Patient was outside the window for remdesivir. Was started on Decadron. Did receive a dose of Tocilizumab -02/06/2021; weaned off the vent - 02/07/2021; patient was placed back on BiPAP following prolonged coughing episode complicated by desaturation.Patient was placed empirically on vancomycin after his cultures came back positive for staph final identification and sensitivities pending 02/08/2021: Continue with air Vo. Appreciate infectious disease and outsole rounder assistance 02/09/2021: Stable continue with air Vo, Will continue with Lasix as needed -02/10/2021: Currently on nasal cannula, will continue to encourage pulmonary toilet, also recommend proning when able. Needs to wear BiPAP at night and this was discussed. Continue with Lasix twice daily -02/11/2021: Continue to wean oxygen -02/12/2021: We will continue to wean oxygen though he does need to go back to the OR today for fascial closure and may need to be intubated secondary to his respiratory status with Covid -02/13/2021: Remains intubated today secondary to high pressor requirement but off sedation -02/14/2021: He is down to 5 mics per minute of Levophed however he was tachypneic and a little bit tachycardic during his spontaneous breathing trial even though he passed it therefore we will keep him intubated for another 24 hours -02/15/2021: Developed a tension pneumothorax overnight and the chest tube was placed with significant air leak. Will attempt to wean his Levophed today and if possible extubate tomorrow as he will unlikely be able to close his air leak while still on positive pressure ventilation. -02/16/2021: Extubated today. Continue with chest tube as are still an air leak. -02/17/2021: Continue to have an air leak through the chest tube. We will continue to monitor. Down to 2 L nasal cannula. Off of pressor support 2. Severe sepsis ?Secondary to SARS-CoV-2 pneumonia with superimposed bacterial pneumonia (staph pneumonia) as well as perforated cecum. Patient did receive IV fluid resuscitation and subsequently started on broad-spectrum antibiotic therapy with Zosyn and vancomycin with consultation placed to ID 02/08/2021: Continue with IV antibiotics, sputum culture with MSSA 02/11/2021: We will complete Zosyn tomorrow for a 10-day course. 02/12/2021: May need to continue his Zosyn for another 24 hours secondary to the needing to go back to the OR today for fascial closure -02/13/2021: Though he has completed Zosyn for his MSSA pneumonia, he did have to have repeat surgery yesterday. We will continue 3. Perforated cecum with very dilated ascending and transverse colon ?Patient underwent exploratory laparotomy with extended right hemicolectomy on 02/04/[address] Wood -02/06/2021 postoperative day 2. Patient complains of some abdominal discomfort his surgical incision however remains clean dry and intact -02/07/2021. Patient has return of bowel function plan is for patient to be started on oral diet once he passes his bedside swallow eval 02/08/2021: Continue with IV Zosyn to cover both MSSA as well as his perforated cecum. Continue to evaluate with speech therapy, he did fail yesterday 02/10/2021: Was evaluated by speech therapy in the past, he is clear to take clear liquids. 02/12/2021: See #2 02/13/2021: Status post evisceration and anastomotic leak repair with ileostomy on 02/12/2021 -02/14/2021: Continue with Zosyn appreciate surgical assistance -02/17/2021: Continue with Zosyn, speech therapy evaluated him and recommended thickened liquids 4. Hyperglycemia ?Secondary to chronic steroid use Patient is currently on long-acting insulin in addition to sliding scale coverage 5. Essential hypertension ?Blood pressure on the low side patient antihypertensives never restarted 6. Dyslipidemia ?On statin therapy prior to admission DVT: Lovenox Charges/Coding Visit Charges Inpatient E&M: 70852 Subs Hosp L2
[2021-02-17] MEDS: Enoxaparin 30 MG/0.3 ML Syringe SC ×2 (10:42→19:46)
[2021-02-17] MEDS: Ascorbic Acid 500 MG Tablet 1000 MG PO (10:43)
[2021-02-17] MEDS: CHLORHEXIDINE GLUC 2% CLOTH 1 EACH TOWELETTE TOPICAL (10:53)
[2021-02-17] MEDS: busPIRone 5 MG Tablet 10 MG PO ×2 (10:53→19:47)
--- NOTE | 2021-02-17 11:13 | PN.SURG_ITS ---
Subjective Subjective patient reports minimal pain tolerating liquids coughing up sputum well, seems in good spirits, is with him passing flatus, no bowel movement yet today still with air leak Objective Data Objective Data Vital Signs: Vital Signs Temp Pulse Resp BP Pulse Ox 97.8 F 93 41 H 129/83 H 91 02/17/21 09:44 02/17/21 09:44 02/17/21 09:44 02/17/21 09:44 02/17/21 09:44 Oxygen Flow Rate (L/min) 2 Oxygen Delivery Method Nasal Cannula Weight: 81.6 kg Body Mass Index (BMI) 27.1 Intake & Output: Intake and Output for Last 24 Hours 02/15/21 02/16/21 02/17/21 23:59 23:59 23:59 Intake Total 1308.82 / 1378.82 868.00 / 868.00 130 / 130 Output Total 1570 / 2170 4225 / 4225 450 / 450 Balance -261.18 / -791.18 -3357.00 / -3357.00 -320 / -320 Medical Nutrition Assessment Dietitian: Malnutrition Criteria Met Start: 02/15/21 12:47 Freq: Status: Active Protocol: Document 02/17/21 10:04 (Rec: 02/17/21 10:04 [id number]) Nutrition Malnutrition Evidence of Malnutrition Exists Yes Malnutrition (severe): Acute Illness/Injury Evidenced By Suboptimal Energy Intake ( Severe),Weight Loss (Severe) Intake Problem Inadequate Enteral Nutrition Infusion Etiology - Signs/Symptoms - Status Active Problem Inadequate Oral Intake Etiology related to GI dysfunction, mechanical intubation Signs/Symptoms as evidenced by no nutritional intake > 7 days Status Resolved Problem Clinical Problem Biting/Chewing Difficulty Etiology and swallowing difficulties r/ t prolonged mechanical intubation Signs/Symptoms as evidenced by need for consistency texture/ modifications per RETURNED TELEPHONE EQUIPMENT APPRAISER Status Active Problem Acute Disease or Injury Related Malnutrition Etiology severe acute malnutrition r/t inadequate energy intake d.t resp. failure d/t COVID-19, bowel perforation Signs/Symptoms as evidenced by estimated PO intake meeting <50% of estimated nutritional needs >5 days; unintentional wt loss of 30.1#/14.3% <1 month Status Active Problem Recommendation Dietitian Recommendations/Changes Recommend advance diet as tolerated to transitional, consistency per RETURNED TELEPHONE EQUIPMENT APPRAISER. Recommend ensure pudding or magic cup w/ meals when diet advanced past clear liquids. Continue daily wts. Lab / Micro Data Result Diagrams: 02/17/21 04:05 02/17/21 04:05 Labs: Laboratory Results - last 24 hr 02/16/21 12:16: POC Glucose 216 H 02/16/21 17:13: POC Glucose 215 H 02/17/21 00:18: POC Glucose 180 H 02/17/21 04:05: WBC 14.0 H, RBC 2.99 L, Hgb 9.8 L, Hct 30.5 L, MCV 102.0 H, MCH 32.8 H, MCHC 32.1, RDW Std Deviation 51.5 H, RDW Coeff of Blanca 13.7, Plt Count 321, MPV 10.8, Immature Gran % (Auto) 3.900 H, Neut % (Auto) 78.3 H, Lymph % (Auto) 13.5 L, [place] % (Auto) 2.9, Eos % (Auto) 1.0, Baso % (Auto) 0.4, Absolute Neuts (auto) 11.0 H, Absolute Lymphs (auto) 1.89, Nucleated RBC % 2.3 02/17/21 04:05: Sodium 154 H, Potassium 3.1 L, Chloride 114 H, Carbon Dioxide 33.0 H, Anion Gap 7, BUN 45 H, Creatinine 1.00, Estim Creat Clear Calc 88.21, Est GFR (MDRD) Af Amer 100, Est GFR (MDRD) Non-Af 83, BUN/Creatinine Ratio 45.0 H, Glucose 177 H, Calcium 9.2, Total Bilirubin 0.50, AST 433 H, ALT 1547 H, Alkaline Phosphatase 146 H, Total Protein 6.5, Albumin 1.7 L, Globulin 4.8 H, Albumin/Globulin Ratio 0.4 L 02/17/21 06:29: POC Glucose 162 H Micro: Microbiology 02/13/21 06:00 Sputum, Induced/Lukens Gram Stain - Final 02/13/21 06:00 Sputum, Induced/Lukens Respiratory Culture - Final Staphylococcus aureus 02/07/21 18:00 Stool Stool Occult Blood (MATILDA) - Final Occult Blood Positive 02/05/21 09:31 Sputum, Induced/Lukens Gram Stain - Final 02/05/21 09:31 Sputum, Induced/Lukens Respiratory Culture - Final Staphylococcus aureus 02/01/21 11:25 Blood Culture (Wb) - Central Line Blood Culture - Final No growth in 5 days. 02/01/21 11:45 Blood Culture (Wb) - Left Wrist Blood Culture - Final No growth in 5 days. 02/01/21 11:30 Sputum, Induced/Lukens Gram Stain - Final 02/01/21 11:30 Sputum, Induced/Lukens Respiratory Culture - Final Staphylococcus aureus 01/27/21 18:30 Blood Culture (Wb) - Anticubital Left Blood Culture - Final No growth in 5 days. 01/27/21 18:33 Blood Culture (Wb) - Central Line Blood Culture - Final No growth in 5 days. 01/30/21 13:20 Stool C. difficile DNA Amplification - Final 01/28/21 08:20 Sputum, Induced/Lukens Gram Stain - Final 01/28/21 08:20 Sputum, Induced/Lukens Respiratory Culture - Final Mixed normal respiratory eulalia. No Streptococcus pneumoniae, beta-hemolytic Streptococcus or Staphylococcus aureus isolated. 01/27/21 21:40 Urine Catheter - Catheter Urine Culture - Final Culture exhibits no growth. 01/27/21 19:30 Mucosa - Nose Respiratory Panel (PCR) - Final 01/27/21 19:25 Urine Catheter - Catheter Legionella Antigen - Final 01/27/21 19:25 Urine Catheter - Catheter Streptococcus pneumoniae Antigen (M - Final Physical Exam Const alert and oriented x3 General Appearance: cooperative HEENT head/scalp atraumatic Resp normal respiratory effort Resp Narrative: good cough effort air leak present GI GI Narrative: abdomen soft and benign wound vac in place Assessment & Plan Assessment/Plan (1) Status post surgery: PLAN: continue present therapy
[2021-02-17] MEDS: oxyCODONE 5 MG Tablet PO ×3 (12:10→22:23)
[2021-02-17 12:20] LABS: Bedside Glucose 209 mg/dL (70-110)
[2021-02-17] MEDS: Menthol/Lanolin/Calamine/Znox 113 GM Tube 1 APPLIC TOPICAL ×2 (14:15→19:48)
[2021-02-17 17:40] LABS: Bedside Glucose 221 mg/dL (70-110)
--- NOTE | 2021-02-17 18:30 | NURSING ---
This and 2nd RN reinforced wound vac several times. Suction increases for limited periods of time to normal limit then returns to 50 mmHg. Will have oncoming RN view and attempt to trouble shoot.
[2021-02-17] MEDS: MELATONIN 3 MG TABLET PO (19:48)
--- NOTE | 2021-02-17 20:15 | NURSING ---
This RN spoke with Dr Bobby on the phone and Dr bobby states to turn off the suction on the wound vacc and it will be assessed in the AM. This RN clamps the tubing for the wound vacc and turns off the wound vacc.
[2021-02-17] MEDS: guaiFENesin 10 ML UDC (200MG/10ML) PO (22:23)
[2021-02-17] MEDS: Ondansetron 4 MG/2 ML Vial IV (22:40)
[2021-02-17 23:05] LABS: Bedside Glucose 172 mg/dL (70-110)
[2021-02-18] VITALS (19 sets, daily range): BP systolic 103–125; BP diastolic 68–90; PULSE 76–97; RESP 18–32; TEMP 36.2–37; O2SAT 93–100
[2021-02-18] MEDS: Menthol/Lanolin/Calamine/Znox 113 GM Tube 1 APPLIC TOPICAL ×3 (06:43→21:40)
[2021-02-18] MEDS: Insulin Lispro 100 UNIT/ML INSULN.PEN SC ×2 (06:46→11:36)
[2021-02-18] MEDS: oxyCODONE 5 MG Tablet PO ×3 (06:46→17:13)
--- NOTE | 2021-02-18 06:49 | PN.CC_ITS ---
Assessment & Plan Assessment/Plan (1) Acute respiratory failure with hypoxia: (2) Pneumonia due to COVID-19 virus: PLAN: RECOMMENDATIONS: 1. Continue to wean supplemental oxygen to maintain saturations at or above 90%. 2. Dietary advancement per surgery recommendations. 3. Continue chest tube to wall suction. Obtain repeat x-ray this morning. 4. If chest x-ray reveals resolution and pneumothorax, will place chest tube to waterseal, given lack of air leak noted. 5. Continue antimicrobials. 6. Continue appropriate prophylaxis. 7. Encourage incentive spirometer use and mobilize patient as tolerated. IMPRESSIONS: 1. Acute hypoxemic respiratory failure secondary to COVID-19 pneumonia/tension pneumothorax The patient presented to the hospital with progressive Covid symptoms after having been initially diagnosed at the end of December. He was therefore outside of the window for remdesivir. CTA chest showed no evidence for pu lmonary embolism. The patient was emergently intubated in the emergency department. The patient has completed his treatment courses for his Covid. He remains on antimicrobials for the MSSA isolated from his sputum. The patient improved from a respiratory perspective and was able to be extubated on February 16. The patient's time spent on the ventilator was complicated by the development of a tension pneumothorax, which did require tube thoracotomy. The patient's air leak has resolved. Will obtain repeat chest x-ray this morning. If there is no evidence of pneumothorax, chest tube can be placed to waterseal. Continue to encourage incentive spirometer use and mobilize patient as tolerate d. 2. Bowel perforation s/p exploratory laparotomy with right hemicolectomy for ischemic complicated by evisceration with anastomotic leak The patient was taken back to surgery on 02/12/2021 secondary to evisceration with anastomotic leak and subsequent septic shock. We will continue with volume optimization and antibiotics. The patient remains on Zosyn therapy. This should provide significant coverage, but will need to extend stop date beyond previous target to 10 days post surgery. 3. Hypernatremia/hyperchloremia/hypokalemia Continue D5W. Recheck morning labs. 4. Obesity/hypertension/hyperlipidemia Complicates care, management, recovery and prognosis. Continue home medications as indicated. This note was generated with Fixetudeation software. It may contain incorrect words, spelling, and punctuation that were not noted in checking the note before signing. Subjective Subjective The patient was seen and examined at the bedside this morning. Events from the last 24 hours have been reviewed. The patient is currently afebrile, hemodynamically stable and maintaining appropriate oxygen saturations on 2 L/min via nasal cannula. The patient is currently documented to be overall net -3.2 L for the hospital admission. Chest tube this morning no longer has an air leak. The patient does report feeling less anxious today after BuSpar was started yesterday. Objective Data Objective Data The patient's most recent lab work, culture data and imaging studies have all been personally reviewed. Sputum culture dated February 13 was positive for MSSA. Vital Signs: Vital Signs Temp Pulse Resp BP Pulse Ox 97.4 F L 76 22 H 103/79 98 02/18/21 00:00 02/18/21 05:00 02/18/21 05:00 02/18/21 05:00 02/18/21 05:00 Oxygen Flow Rate (L/min) 2 Oxygen Delivery Method Nasal Cannula Weight: 81.6 kg Body Mass Index (BMI) 27.1 Intake & Output: Intake and Output for Last 24 Hours 02/16/21 02/17/21 02/18/21 23:59 23:59 23:59 Intake Total 868.00 / 868.00 1520.00 / 1520.00 858.33 / 858.33 Output Total 4225 / 4225 950 / 950 Balance -3357.00 / -3357.00 570.00 / 570.00 858.33 / 858.33 Medical Nutrition Assessment Dietitian: Malnutrition Criteria Met Start: 02/15/21 1 2:47 Freq: Status: Active Protocol: Document 02/17/21 10:04 (Rec: 02/17/21 10:04 [id number]) Nutrition Malnutrition Evidence of Malnutrition Exists Yes Malnutrition (severe): Acute Illness/Injury Evidenced By Suboptimal Energy Intake ( Severe),Weight Loss (Severe) Intake Problem Inadequate Enteral Nutrition Infusion Etiology - Signs/Symptoms - Status Active Problem Inadequate Oral Intake Etiology related to GI dysfunction, mechanical intubation Signs/Symptoms as evidenced by no nutritional intake > 7 days Status Resolved Problem Clinical Problem Biting/Chewing Difficulty Etiology and swallowing difficulties r/ t prolonged mechanical intubation Signs/Symptoms as evidenced by need for consistency texture/ modifications per SENIOR PRINCIPAL ARCHITECT Status Active Problem Acute Disease or Injury Related Malnutrition Etiology severe acute malnutrition r/t inadequate energy intake d.t resp. failure d/t COVID-19, bowel perforation Signs/Symptoms as evidenced by estimated PO intake meeting <50% of estimated nutritional needs >5 days; unintentional wt loss of 30.1#/14.3% <1 month Status Active Problem Recommendation Dietitian Recommendations/Changes Recommend advance diet as tolerated to transitional, consistency per SENIOR PRINCIPAL ARCHITECT. Recommend ensure pudding or magic cup w/ meals when diet advanced past clear liquids. Continue daily wts. Lab / Micro Data Attestation: I reviewed the patient's lab results. Result Diagrams: 02/18/21 05:05 02/18/21 05:05 Labs: Laboratory Results - last 24 hr 02/17/21 04:05: WBC 14.0 H, RBC 2.99 L, Hgb 9.8 L, Hct 30.5 L, MCV 102.0 H, MCH 32.8 H, MCHC 32.1, RDW Std Deviation 51.5 H, RDW Coeff of Blanca 13.7, Plt Count 321, MPV 10.8, Immature Gran % (Auto) 3.900 H, Neut % (Auto) 78.3 H, Lymph % (Auto) 13.5 L, [place] % (Auto) 2.9, Eos % (Auto) 1.0, Baso % (Auto) 0.4, Absolute Neuts (auto) 11.0 H, Absolute Lymphs (auto) 1.89, Nucleated RBC % 2.3 02/17/21 04:05: Sodium 154 H, Potassium 3.1 L, Chloride 114 H, Carbon Dioxide 33.0 H, Anion Gap 7, BUN 45 H, Creatinine 1.00, Estim Creat Clear Calc 88.21, Est GFR (MDRD) Af Amer 100, Est GFR (MDRD) Non-Af 83, BUN/Creatinine Ratio 45.0 H, Glucose 177 H, Calcium 9.2, Total Bilirubin 0.50, AST 433 H, ALT 1547 H, Alkaline Phosphatase 146 H, Total Protein 6.5, Albumin 1.7 L, Globulin 4.8 H, Albumin/Globulin Ratio 0.4 L 02/17/21 12:09: POC Glucose 209 H 02/17/21 17:14: POC Glucose 221 H 02/17/21 22:49: POC Glucose 172 H Micro: Microbiology 02/13/21 06:00 Sputum, Induced/Lukens Gram Stain - Final 02/13/21 06:00 Sputum, Induced/Lukens Respiratory Culture - Final Staphylococcus aureus 02/07/21 18:00 Stool Stool Occult Blood (MATILDA) - Final Occult Blood Positive 02/05/21 09:31 Sputum, Induced/Lukens Gram Stain - Final 02/05/21 09:31 Sputum, Induced/Lukens Respiratory Culture - Final Staphylococcus aureus 02/01/21 11:25 Blood Culture (Wb) - Central Line Blood Culture - Final No growth in 5 days. 02/01/21 11:45 Blood Culture (Wb) - Left Wrist Blood Culture - Final No growth in 5 days. 02/01/21 11:30 Sputum, Induced/Lukens Gram Stain - Final 02/01/21 11:30 Sputum, Induced/Lukens Respiratory Culture - Final Staphylococcus aureus 01/27/21 18:30 Blood Culture (Wb) - Anticubital Left Blood Culture - Final No growth in 5 days. 01/27/21 18:33 Blood Culture (Wb) - Central Line Blood Culture - Final No growth in 5 days. 01/30/21 13:20 Stool C. difficile DNA Amplification - Final 01/28/21 08:20 Sputum, Induced/Lukens Gram Stain - Final 01/28/21 08:20 Sputum, Induced/Lukens Respiratory Culture - Final Mixed normal respiratory eulalia. No Streptococcus pneumoniae, beta-hemolytic Streptococcus or Staphylococcus aureus isolated. 01/27/21 21:40 Urine Catheter - Catheter Urine Culture - Final Culture exhibits no growth. 01/27/21 19:30 Mucosa - Nose Respiratory Panel (PCR) - Final 01/27/21 19:25 Urine Catheter - Catheter Legionella Antigen - Final 01/27/21 19:25 Urine Catheter - Catheter Streptococcus pneumoniae Antigen (M - Final Physical Exam Const alert and no apparent distress General Appearance: cooperative HEENT normocephalic and head/scalp atraumatic Eyes PERRL, EOMs intact bilaterally and conjunctivae normal Neck supple General: trachea midline Chest Chest Narrative: No air leak noted today. Chest: chest tube Resp Effort and Inspection: able to speak in complete sentences and tachypneic Auscultation: diminished lung sounds Cardio regular rate and regular rhythm GI soft to palpation GI Narrative: + Wound VAC in place Inspection: ostomy present Extremity no clubbing, cyanosis or edema Skin no rashes or lesions noted Neuro moves all extremities and no focal motor deficits Psych cooperative and affect normal Charges/Coding Visit Charges Inpatient E&M: 74635 Subs Hosp L3
--- NOTE | 2021-02-18 07:00 | RAD_ITS ---
STUDY: X-RAY CHEST REASON FOR EXAM: Male, 55 years old. Eval of PTX TECHNIQUE: Single AP portable view of the chest. COMPARISON: 02/15/2021 FINDINGS: Interval removal of endotracheal tube and nasogastric tube. Right internal jugular deep venous line and right-sided thoracostomy tube both which are unchanged. No change in the small lateral right pneumothorax. Alveolar opacity in both lung bases consistent with bibasilar atelectasis or pneumonia. There is no demonstrated pleural abnormality. Normal size heart. Normal mediastinum and nadia. Normal visualized pulmonary arteries. Normal visualized aortic arch and descending thoracic aorta. Normal visualized thoracic spine. Normal visualized ribs, clavicles, and shoulders. There is no demonstrated abnormality of the visualized soft tissue structures of the upper abdomen. RAD/Chest 1 View (Portable) IMPRESSION: 1. Interval removal of endotracheal tube and nasogastric tube with worsening bibasilar atelectasis or pneumonia. 2. Right internal jugular deep venous line which is unchanged. 3. Right-sided thoracostomy tube with no change in the small lateral right pneumothorax. Electronically Signed: Everett Cee MD at 7:51 EDT Tel , Service support ,
[2021-02-18 07:11] LABS: Bedside Glucose 167 mg/dL (70-110)
[2021-02-18 08:11] LABS: Absolute Lymphocyte Count 1.51 X10^3/uL (0.83-4.51); Absolute Neutrophil Count 9.4 X10^3/uL (2.0-7.7); Basophil# 0.03 X10^3/uL; Basophil% 0.2 % (0-1); Eosinophil# 0.45 X10^3/uL; Eosinophils% 3.7 % (0-5); Hematocrit 29.4 % (40-54); Hemoglobin 9.2 g/dL (13.0-16.5); Lymphocyte # 1.51 X10^3/ul (0.83-4.51); Lymphocyte % 12.4 % (19-41); Mean Corp Hgb Conc 31.3 g/dL (32-36); Mean Corpuscular Hgb 33.2 pg (27.0-32.0); Mean Corpuscular Volume 106.1 fL (80-94); Mean Platelet Vol. 10.6 fl (6.2-12.0); Monocyte# 0.45 X10^3/uL; Monocyte% 3.7 % (0-10); NRBC Flagged by Analyzer 1.1 % (0-5); Neutrophil # 9.42 X10^3/uL (2.7-7.7); Neutrophil % 77.1 % (47-70); Platelet Count 276 K/mm3 (150-450); RBC Distribution Width CV 13.7 % (11.6-14.6); RBC Distribution Width SD 53.6 fl (35.1-43.9); Red Blood Count 2.77 M/mm3 (4.6-6.2); White Blood Count 12.2 K/mm3 (4.4-11.0)
[2021-02-18 08:25] LABS: Anion Gap 3 (5-15); BUN 25 mg/dL (7-18); BUN/Creat Ratio 32.3 RATIO (10-20); Calcium,Total 8.9 mg/dL (8.5-10.1); Chloride 112 mmol/L (98-107); Creatinine, Serum 0.77 mg/dL (0.70-1.30); EST Glomerular Filtration Rate 111 mL/min (>60); Est Glom Filt Rate - Afr Amer 135 mL/min (>60); Estimated Creatinine Clearance 114.56 ml/min; Glucose 167 mg/dL (74-106); Potassium 3.6 mmol/L (3.5-5.1); Sodium Level 148 mmol/L (136-145)
--- NOTE | 2021-02-18 09:28 | PCM.PN.HOSP ---
Subjective Subjective No issues overnight. No air leak in the chest tube therefore chest x-ray is obtained and does not look like it has any residual pneumothorax therefore may be able to put him down to waterseal for the next 24 to 48 hours Objective Data Objective Data Vital Signs: Vital Signs Temp Pulse Resp BP Pulse Ox 97.1 F L 86 25 H 116/80 97 02/18/21 06:00 02/18/21 06:00 02/18/21 06:00 02/18/21 06:00 02/18/21 07:07 Oxygen Flow Rate (L/min) 2 Oxygen Delivery Method Nasal Cannula Weight: 179 lb 14.355 oz Body Mass Index (BMI) 27.1 Intake & Output: Intake and Output for Last 24 Hours 02/17/21 02/18/21 02/19/21 03:59 03:59 03:59 Intake Total 768.00 / 768.00 1520.00 / 1520.00 1108.33 / 1108.33 Output Total 3625 / 3625 950 / 950 850 / 850 Balance -2857.00 / -2857.00 570.00 / 570.00 258.33 / 258.33 Medical Nutrition Assessment Dietitian: Malnutrition Criteria Met Start: 02/15/21 12:47 Freq: Status: Active Protocol: Document 02/17/21 10:04 (Rec: 02/17/21 10:04 [id number]) Nutrition Malnutrition Evidence of Malnutrition Exists Yes Malnutrition (severe): Acute Illness/Injury Evidenced By Suboptimal Energy Intake ( Severe),Weight Loss (Severe) Intake Problem Inadequate Enteral Nutrition Infusion Etiology - Signs/Symptoms - Status Active Problem Inadequate Oral Intake Etiology related to GI dysfunction, mechanical intubation Signs/Symptoms as evidenced by no nutritional intake > 7 days Status Resolved Problem Clinical Problem Biting/Chewing Difficulty Etiology and swallowing difficulties r/ t prolonged mechanical intubation Signs/Symptoms as evidenced by need for consistency texture/ modifications per JOB MOLDER Status Active Problem Acute Disease or Injury Related Malnutrition Etiology severe acute malnutrition r/t inadequate energy intake d.t resp. failure d/t COVID-19, bowel perforation Signs/Symptoms as evidenced by estimated PO intake meeting <50% of estimated nutritional needs >5 days; unintentional wt loss of 30.1#/14.3% <1 month Status Active Problem Recommendation Dietitian Recommendations/Changes Recommend advance diet as tolerated to transitional, consistency per JOB MOLDER. Recommend ensure pudding or magic cup w/ meals when diet advanced past clear liquids. Continue daily wts. Lab / Micro Data Result Diagrams: 02/18/21 05:05 02/18/21 05:05 Labs: Laboratory Results - last 24 hr 02/17/21 12:09: POC Glucose 209 H 02/17/21 17:14: POC Glucose 221 H 02/17/21 22:49: POC Glucose 172 H 02/18/21 05:05: WBC 12.2 H, RBC 2.77 L, Hgb 9.2 L, Hct 29.4 L, MCV 106.1 H, MCH 33.2 H, MCHC 31.3 L, RDW Std Deviation 53.6 H, RDW Coeff of Blanca 13.7, Plt Count 276, MPV 10.6, Immature Gran % (Auto) 2.900 H, Neut % (Auto) 77.1 H, Lymph % (Auto) 12.4 L, [place] % (Auto) 3.7, Eos % (Auto) 3.7, Baso % (Auto) 0.2, Absolute Neuts (auto) 9.4 H, Absolute Lymphs (auto) 1.51, Nucleated RBC % 1.1 02/18/21 05:05: Sodium 148 H, Potassium 3.6, Chloride 112 H, Carbon Dioxide 33.0 H, Anion Gap 3 L, BUN 25 H, Creatinine 0.77, Estim Creat Clear Calc 114.56, Est GFR (MDRD) Af Amer 135, Est GFR (MDRD) Non-Af 111, BUN/Creatinine Ratio 32.3 H, Glucose 167 H, Calcium 8.9 02/18/21 06:29: POC Glucose 167 H Micro: Microbiology 02/13/21 06:00 Sputum, Induced/Lukens Gram Stain - Final 02/13/21 06:00 Sputum, Induced/Lukens Respiratory Culture - Final Staphylococcus aureus 02/07/21 18:00 Stool Stool Occult Blood (MATILDA) - Final Occult Blood Positive 02/05/21 09:31 Sputum, Induced/Lukens Gram Stain - Final 02/05/21 09:31 Sputum, Induced/Lukens Respiratory Culture - Final Staphylococcus aureus 02/01/21 11:25 Blood Culture (Wb) - Central Line Blood Culture - Final No growth in 5 days. 02/01/21 11:45 Blood Culture (Wb) - Left Wrist Blood Culture - Final No growth in 5 days. 02/01/21 11:30 Sputum, Induced/Lukens Gram Stain - Final 02/01/21 11:30 Sputum, Induced/Lukens Respiratory Culture - Final Staphylococcus aureus 01/27/21 18:30 Blood Culture (Wb) - Anticubital Left Blood Culture - Final No growth in 5 days. 01/27/21 18:33 Blood Culture (Wb) - Central Line Blood Culture - Final No growth in 5 days. 01/30/21 13:20 Stool C. difficile DNA Amplification - Final 01/28/21 08:20 Sputum, Induced/Lukens Gram Stain - Final 01/28/21 08:20 Sputum, Induced/Lukens Respiratory Culture - Final Mixed normal respiratory eulalia. No Streptococcus pneumoniae, beta-hemolytic Streptococcus or Staphylococcus aureus isolated. 01/27/21 21:40 Urine Catheter - Catheter Urine Culture - Final Culture exhibits no growth. 01/27/21 19:30 Mucosa - Nose Respiratory Panel (PCR) - Final 01/27/21 19:25 Urine Catheter - Catheter Legionella Antigen - Final 01/27/21 19:25 Urine Catheter - Catheter Streptococcus pneumoniae Antigen (M - Final Radiography Diagnostic Testing: Radiology Impression Chest X-Ray 02/18/21 07:00 IMPRESSION: 1. Interval removal of endotracheal tube and nasogastric tube with worsening bibasilar atelectasis or pneumonia. 2. Right internal jugular deep venous line which is unchanged. 3. Right-sided thoracostomy tube with no change in the small lateral right pneumothorax. Electronically Signed: Everett Cee MD at 7:51 EDT Tel , Service support , Physical Exam Const alert and no apparent distress HEENT normocephalic and moist oral mucous membranes Eyes PERRL, EOMs intact bilaterally and conjunctivae normal Neck supple and no JVD Chest Chest: chest tube right Resp normal respiratory effort, no retractions and no use of accessory muscles Auscultation: rhonchi and diminished lung sounds; Negative for crackles, rales or wheezes Cardio regular rate, regular rhythm, S1 normal heart sound, S2 normal heart sound and no murmurs GI soft to palpation, non-tender and non-distended; Negative for hepatosplenomegaly GI Narrative: Ostomy intact Extremity no clubbing, cyanosis or edema Skin no rashes or lesions noted Neuro no focal motor deficits and no sensory deficits noted Psych Appearance: appropriate Mood & Affect: flat affect Assessment & Plan Assessment/Plan (1) Acute respiratory failure with hypoxia: PLAN: 1. Acute hypoxic respiratory failure/tension pneumothorax ?Secondary to SARS-CoV-2 pneumonia. Patient admitted to the intensive care unit placed on ventilator. Patient was outside the window for remdesivir. Was started on Decadron. Did receive a dose of Tocilizumab -02/06/2021; weaned off the vent - 02/07/2021; patient was placed back on BiPAP following prolonged coughing episode complicated by desaturation.Patient was placed empirically on vancomycin after his cultures came back positive for staph final identification and sensitivities pending 02/08/2021: Continue with air Vo. Appreciate infectious disease and pricing intern assistance 02/09/2021: Stable continue with air Vo, Will continue with Lasix as needed -02/10/2021: Currently on nasal cannula, will continue to encourage pulmonary toilet, also recommend proning when able. Needs to wear BiPAP at night and this was discussed. Continue with Lasix twice daily -02/11/2021: Continue to wean oxygen -02/12/2021: We will continue to wean oxygen though he does need to go back to the OR today for fascial closure and may need to be intubated secondary to his respiratory status with Covid -02/13/2021: Remains intubated today secondary to high pressor requirement but off sedation -02/14/2021: He is down to 5 mics per minute of Levophed however he was tachypneic and a little bit tachycardic during his spontaneous breathing trial even though he passed it therefore we will keep him intubated for another 24 hours -02/15/2021: Developed a tension pneumothorax overnight and the chest tube was placed with significant air leak. Will attempt to wean his Levophed today and if possible extubate tomorrow as he will unlikely be able to close his air leak while still on positive pressure ventilation. -02/16/2021: Extubated today. Continue with chest tube as are still an air leak. -02/17/2021: Continue to have an air leak through the chest tube. We will continue to monitor. Down to 2 L nasal cannula. Off of pressor support -02/18/2021: Still maintaining his oxygen status on 2 L nasal cannula. Repeat sputum culture once again shows MSSA and he is still on Zosyn. Is not appear to have an air leak and chest x-ray this morning was obtained demonstrating a small unchanged lateral pneumothorax on the right. Plan will be to transition him to [facility] today and transfer to PCU 2. Severe sepsis ?Secondary to SARS-CoV-2 pneumonia with superimposed bacterial pneumonia (staph pneumonia) as well as perforated cecum. Patient did receive IV fluid resuscitation and subsequently started on broad-spectrum antibiotic therapy with Zosyn and vancomycin with consultation placed to ID 02/08/2021: Continue with IV antibiotics, sputum culture with MSSA 02/11/2021: We will complete Zosyn tomorrow for a 10-day course. 02/12/2021: May need to continue his Zosyn for another 24 hours secondary to the needing to go back to the OR today for fascial closure -02/13/2021: Though he has completed Zosyn for his MSSA pneumonia, he did have to have repeat surgery yesterday. We will continue -02/18/2021: Sputum culture with MSSA that was obtained on 02/13/2021. Continue with Zosyn 3. Perforated cecum with very dilated ascending and transverse colon ?Patient underwent exploratory laparotomy with extended right hemicolectomy on 02/04/[address] Wood -02/06/2021 postoperative day 2. Patient complains of some abdominal discomfort his surgical incision however remains clean dry and intact -02/07/2021. Patient has return of bowel function plan is for patient to be started on oral diet once he passes his bedside swallow eval 02/08/2021: Continue with IV Zosyn to cover both MSSA as well as his perforated cecum. Continue to evaluate with speech therapy, he did fail yesterday 02/10/2021: Was evaluated by speech therapy in the past, he is clear to take clear liquids. 02/12/2021: See #2 02/13/2021: Status post evisceration and anastomotic leak repair with ileostomy on 02/12/2021 -02/14/2021: Continue with Zosyn appreciate surgical assistance -02/17/2021: Continue with Joseph, speech therapy evaluated him and recommended thickened liquids 4. Hyperglycemia ?Secondary to chronic steroid use Patient is currently on long-acting insulin in addition to sliding scale coverage 5. Essential hypertension ?Blood pressure on the low side patient antihypertensives never restarted 6. Dyslipidemia ?On statin therapy prior to admission 7. Anxiety -Recently started on BuSpar which has seemed to help we will continue DVT: Lovenox Charges/Coding Visit Charges Inpatient E&M: 30496 Subs Hosp L2
[2021-02-18] MEDS: fentaNYL 100 MCG/2 ML Ampul 50 MCG IV (09:50)
[2021-02-18] MEDS: Enoxaparin 30 MG/0.3 ML Syringe SC ×2 (11:22→21:41)
[2021-02-18] MEDS: Ascorbic Acid 500 MG Tablet 1000 MG PO (11:22)
[2021-02-18] MEDS: busPIRone 5 MG Tablet 10 MG PO ×2 (11:22→21:40)
[2021-02-18 11:51] LABS: Bedside Glucose 164 mg/dL (70-110)
--- NOTE | 2021-02-18 12:23 | PN.SURG_ITS ---
Subjective Subjective Patient feeling overall well, being transferred out of ICU wound vac dressing could not provide a good seal - therefore alarm kept on triggering, told nurses to hold for now and Antonette can address this on Friday Patient is passing flatus good cough effort Objective Data Objective Data Vital Signs: Vital Signs Temp Pulse Resp BP Pulse Ox 97.1 F L 86 25 H 116/80 97 02/18/21 06:00 02/18/21 06:00 02/18/21 06:00 02/18/21 06:00 02/18/21 07:07 Oxygen Flow Rate (L/min) 2 Oxygen Delivery Method Nasal Cannula Weight: 81.6 kg Body Mass Index (BMI) 27.1 Intake & Output: Intake and Output for Last 24 Hours 02/16/21 02/17/21 02/18/21 23:59 23:59 23:59 Intake Total 868.00 / 868.00 1520.00 / 1520.00 1318.33 / 1318.33 Output Total 4225 / 4225 950 / 950 850 / 850 Balance -3357.00 / -3357.00 570.00 / 570.00 468.33 / 468.33 Medical Nutrition Assessment Dietitian: Malnutrition Criteria Met Start: 02/15/21 1 2:47 Freq: Status: Active Protocol: Document 02/17/21 10:04 (Rec: 02/17/21 10:04 [id number]) Nutrition Malnutrition Evidence of Malnutrition Exists Yes Malnutrition (severe): Acute Illness/Injury Evidenced By Suboptimal Energy Intake ( Severe),Weight Loss (Severe) Intake Problem Inadequate Enteral Nutrition Infusion Etiology - Signs/Symptoms - Status Active Problem Inadequate Oral Intake Etiology related to GI dysfunction, mechanical intubation Signs/Symptoms as evidenced by no nutritional intake > 7 days Status Resolved Problem Clinical Problem Biting/Chewing Difficulty Etiology and swallowing difficulties r/ t prolonged mechanical intubation Signs/Symptoms as evidenced by need for consistency texture/ modifications per VALIDATION TECHNICIAN Status Active Problem Acute Disease or Injury Related Malnutrition Etiology severe acute malnutrition r/t inadequate energy intake d.t resp. failure d/t COVID-19, bowel perforation Signs/Symptoms as evidenced by estimated PO intake meeting <50% of estimated nutritional needs >5 days; unintentional wt loss of 30.1#/14.3% <1 month Status Active Problem Recommendation Dietitian Recommendations/Changes Recommend advance diet as tolerated to transitional, consistency per VALIDATION TECHNICIAN. Recommend ensure pudding or magic cup w/ meals when diet advanced past clear liquids. Continue daily wts. Lab / Micro Data Result Diagrams: 02/18/21 05:05 02/18/21 05:05 Labs: Laboratory Results - last 24 hr 02/17/21 17:14: POC Glucose 221 H 02/17/21 22:49: POC Glucose 172 H 02/18/21 05:05: WBC 12.2 H, RBC 2.77 L, Hgb 9.2 L, Hct 29.4 L, MCV 106.1 H, MCH 33.2 H, MCHC 31.3 L, RDW Std Deviation 53.6 H, RDW Coeff of Blanca 13.7, Plt Count 276, MPV 10.6, Immature Gran % (Auto) 2.900 H, Neut % (Auto) 77.1 H, Lymph % (Auto) 12.4 L, [place] % (Auto) 3.7, Eos % (Auto) 3.7, Baso % (Auto) 0.2, Absolute Neuts (auto) 9.4 H, Absolute Lymphs (auto) 1.51, Nucleated RBC % 1.1 02/18/21 05:05: Sodium 148 H, Potassium 3.6, Chloride 112 H, Carbon Dioxide 33.0 H, Anion Gap 3 L, BUN 25 H, Creatinine 0.77, Estim Creat Clear Calc 114.56, Est GFR (MDRD) Af Amer 135, Est GFR (MDRD) Non-Af 111, BUN/Creatinine Ratio 32.3 H, Glucose 167 H, Calcium 8.9 02/18/21 06:29: POC Glucose 167 H 02/18/21 11:34: POC Glucose 164 H Micro: Microbiology 02/13/21 06:00 Sputum, Induced/Lukens Gram Stain - Final 02/13/21 06:00 Sputum, Induced/Lukens Respiratory Culture - Final Staphylococcus aureus 02/07/21 18:00 Stool Stool Occult Blood (MATILDA) - Final Occult Blood Positive 02/05/21 09:31 Sputum, Induced/Lukens Gram Stain - Final 02/05/21 09:31 Sputum, Induced/Lukens Respiratory Culture - Final Staphylococcus aureus 02/01/21 11:25 Blood Culture (Wb) - Central Line Blood Culture - Final No growth in 5 days. 02/01/21 11:45 Blood Culture (Wb) - Left Wrist Blood Culture - Final No growth in 5 days. 02/01/21 11:30 Sputum, Induced/Lukens Gram Stain - Final 02/01/21 11:30 Sputum, Induced/Lukens Respiratory Culture - Final Staphylococcus aureus 01/27/21 18:30 Blood Culture (Wb) - Anticubital Left Blood Culture - Final No growth in 5 days. 01/27/21 18:33 Blood Culture (Wb) - Central Line Blood Culture - Final No growth in 5 days. 01/30/21 13:20 Stool C. difficile DNA Amplification - Final 01/28/21 08:20 Sputum, Induced/Lukens Gram Stain - Final 01/28/21 08:20 Sputum, Induced/Lukens Respiratory Culture - Final Mixed normal respiratory eulalia. No Streptococcus pneumoniae, beta-hemolytic Streptococcus or Staphylococcus aureus isolated. 01/27/21 21:40 Urine Catheter - Catheter Urine Culture - Final Culture exhibits no growth. 01/27/21 19:30 Mucosa - Nose Respiratory Panel (PCR) - Final 01/27/21 19:25 Urine Catheter - Catheter Legionella Antigen - Final 01/27/21 19:25 Urine Catheter - Catheter Streptococcus pneumoniae Antigen (M - Final Radiography Diagnostic Testing: Radiology Impression Chest X-Ray 02/18/21 07:00 IMPRESSION: 1. Interval removal of endotracheal tube and nasogastric tube with worsening bibasilar atelectasis or pneumonia. 2. Right internal jugular deep venous line which is unchanged. 3. Right-sided thoracostomy tube with no change in the small lateral right pneumothorax. Electronically Signed: Everett Cee MD at 7:51 EDT Tel , Service support , Physical Exam Const no apparent distress Resp normal respiratory effort Resp Narrative: good cough effort minimal air leak noted today - improvement from yesterday GI GI Narrative: abdomen is soft, no peritoneal signs noted, dressing intact Assessment & Plan Assessment/Plan (1) Status post surgery: PLAN: continue present therapy
[2021-02-18 17:26] LABS: Bedside Glucose 140 mg/dL (70-110)
[2021-02-18] MEDS: MELATONIN 3 MG TABLET PO (21:40)
[2021-02-19] VITALS (13 sets, daily range): BP systolic 110–127; BP diastolic 67–91; PULSE 87–103; RESP 16–28; TEMP 36.2–37; O2SAT 90–98
[2021-02-19 00:31] LABS: Bedside Glucose 134 mg/dL (70-110)
[2021-02-19] MEDS: Insulin Lispro 100 UNIT/ML INSULN.PEN SC ×3 (06:03→16:53)
[2021-02-19] MEDS: Menthol/Lanolin/Calamine/Znox 113 GM Tube 1 APPLIC TOPICAL ×3 (06:04→21:35)
[2021-02-19 06:15] LABS: Bedside Glucose 202 mg/dL (70-110)
[2021-02-19 06:45] LABS: Absolute Lymphocyte Count 1.31 X10^3/uL (0.83-4.51); Absolute Neutrophil Count 13.2 X10^3/uL (2.0-7.7); Basophil# 0.04 X10^3/uL; Basophil% 0.2 % (0-1); Eosinophil# 0.56 X10^3/uL; Eosinophils% 3.5 % (0-5); Hemoglobin 11.8 g/dL (13.0-16.5); Lymphocyte # 1.31 X10^3/ul (0.83-4.51); Lymphocyte % 8.2 % (19-41); Mean Corp Hgb Conc 32.8 g/dL (32-36); Mean Corpuscular Hgb 32.7 pg (27.0-32.0); Mean Corpuscular Volume 99.7 fL (80-94); Mean Platelet Vol. 10.4 fl (6.2-12.0); Monocyte# 0.56 X10^3/uL; Monocyte% 3.5 % (0-10); NRBC Flagged by Analyzer 0.1 % (0-5); Neutrophil # 13.19 X10^3/uL (2.7-7.7); Platelet Count 250 K/mm3 (150-450); RBC Distribution Width CV 13.2 % (11.6-14.6); RBC Distribution Width SD 48.4 fl (35.1-43.9); Red Blood Count 3.61 M/mm3 (4.6-6.2); White Blood Count 16.1 K/mm3 (4.4-11.0)
[2021-02-19 07:04] LABS: Anion Gap 3 (5-15); BUN 12 mg/dL (7-18); BUN/Creat Ratio 18.8 RATIO (10-20); Calcium,Total 8.2 mg/dL (8.5-10.1); Chloride 108 mmol/L (98-107); Creatinine, Serum 0.64 mg/dL (0.70-1.30); EST Glomerular Filtration Rate 139 mL/min (>60); Est Glom Filt Rate - Afr Amer 168 mL/min (>60); Estimated Creatinine Clearance 137.83 ml/min; Glucose 159 mg/dL (74-106); Potassium 3.9 mmol/L (3.5-5.1); Sodium Level 141 mmol/L (136-145)
--- NOTE | 2021-02-19 07:27 | RAD_ITS ---
STUDY: X-RAY CHEST REASON FOR EXAM: Male, 55 years old. pneumothorax TECHNIQUE: AP COMPARISON: 02/18/2021 FINDINGS: EKG leads project over the chest. Right jugular central venous catheter is stable. Right chest tube extending to the right apex is stable. Multilobar airspace consolidation predominantly in the right lung stable. There are small rounded areas of lucency in the right lung base, stable. Right pleural effusion is similar. Normal size heart. Normal mediastinum and nadia. Normal visualized pulmonary arteries. Normal visualized aortic arch and descending thoracic aorta. No acute bony process. There is no demonstrated abnormality of the visualized soft tissue structures of the upper abdomen. RAD/Chest 1 View (Portable) IMPRESSION: 1. Since 02/18/2021, stable. 2. Right more than left parenchymal airspace disease with lucencies in the right lung base that could represent loculated pleural air versus parenchymal cavitation. Electronically Signed: Nav Hernandez MD ([place]) at 8:07 EDT , Service support ,
--- NOTE | 2021-02-19 07:28 | PCM.PN.SRG ---
Subjective Subjective Patient reports no nausea or vomiting or abdominal pain unless he is coughing Objective Data Objective Data Vital Signs: Vital Signs Temp Pulse Resp BP Pulse Ox 97.1 F L 90 18 121/72 H 94 02/19/21 02:10 02/19/21 03:00 02/19/21 02:10 02/19/21 02:10 02/19/21 02:10 Oxygen Flow Rate (L/min) 4 Oxygen Delivery Method Nasal Cannula Weight: 190 lb 0.615 oz Body Mass Index (BMI) 27.1 Intake & Output: Intake and Output for Last 24 Hours 02/17/21 02/18/21 02/19/21 23:59 23:59 23:59 Intake Total 1520.00 / 1520.00 2620.00 / 2620.00 110 / 110 Output Total 950 / 950 2825 / 2825 740 / 740 Balance 570.00 / 570.00 -205.00 / -205.00 -630 / -630 Medical Nutrition Assessment Dietitian: Malnutrition Criteria Met Start: 02/15/21 12:47 Freq: Status: Active Protocol: Document 02/17/21 10:04 (Rec: 02/17/21 10:04 [id number]) Nutrition Malnutrition Evidence of Malnutrition Exists Yes Malnutrition (severe): Acute Illness/Injury Evidenced By Suboptimal Energy Intake ( Severe),Weight Loss (Severe) Intake Problem Inadequate Enteral Nutrition Infusion Etiology - Signs/Symptoms - Status Active Problem Inadequate Oral Intake Etiology related to GI dysfunction, mechanical intubation Signs/Symptoms as evidenced by no nutritional intake > 7 days Status Resolved Problem Clinical Problem Biting/Chewing Difficulty Etiology and swallowing difficulties r/ t prolonged mechanical intubation Signs/Symptoms as evidenced by need for consistency texture/ modifications per SUPERVISOR METAL PLACING Status Active Problem Acute Disease or Injury Related Malnutrition Etiology severe acute malnutrition r/t inadequate energy intake d.t resp. failure d/t COVID-19, bowel perforation Signs/Symptoms as evidenced by estimated PO intake meeting <50% of estimated nutritional needs >5 days; unintentional wt loss of 30.1#/14.3% <1 month Status Active Problem Recommendation Dietitian Recommendations/Changes Recommend advance diet as tolerated to transitional, consistency per SUPERVISOR METAL PLACING. Recommend ensure pudding or magic cup w/ meals when diet advanced past clear liquids. Continue daily wts. Lab / Micro Data Result Diagrams: 02/19/21 06:14 02/19/21 06:14 Labs: Laboratory Results - last 24 hr 02/18/21 05:05: WBC 12.2 H, RBC 2.77 L, Hgb 9.2 L, Hct 29.4 L, MCV 106.1 H, MCH 33.2 H, MCHC 31.3 L, RDW Std Deviation 53.6 H, RDW Coeff of Blanca 13.7, Plt Count 276, MPV 10.6, Immature Gran % (Auto) 2.900 H, Neut % (Auto) 77.1 H, Lymph % (Auto) 12.4 L, [place] % (Auto) 3.7, Eos % (Auto) 3.7, Baso % (Auto) 0.2, Absolute Neuts (auto) 9.4 H, Absolute Lymphs (auto) 1.51, Nucleated RBC % 1.1 02/18/21 05:05: Sodium 148 H, Potassium 3.6, Chloride 112 H, Carbon Dioxide 33.0 H, Anion Gap 3 L, BUN 25 H, Creatinine 0.77, Estim Creat Clear Calc 114.56, Est GFR (MDRD) Af Amer 135, Est GFR (MDRD) Non-Af 111, BUN/Creatinine Ratio 32.3 H, Glucose 167 H, Calcium 8.9 02/18/21 11:34: POC Glucose 164 H 02/18/21 17:12: POC Glucose 140 H 02/19/21 00:24: POC Glucose 134 H 02/19/21 06:02: POC Glucose 202 H 02/19/21 06:14: WBC 16.1 H, RBC 3.61 L, Hgb 11.8 L, Hct 36.0 L, MCV 99.7 H D, MCH 32.7 H, MCHC 32.8, RDW Std Deviation 48.4 H, RDW Coeff of Blanca 13.2, Plt Count 250, MPV 10.4, Immature Gran % (Auto) 2.600 H, Neut % (Auto) 82.0 H, Lymph % (Auto) 8.2 L, [place] % (Auto) 3.5, Eos % (Auto) 3.5, Baso % (Auto) 0.2, Absolute Neuts (auto) 13.2 H, Absolute Lymphs (auto) 1.31, Nucleated RBC % 0.1 02/19/21 06:14: Sodium 141, Potassium 3.9, Chloride 108 H, Carbon Dioxide 30.0, Anion Gap 3 L, BUN 12, Creatinine 0.64 L, Estim Creat Clear Calc 137.83, Est GFR (MDRD) Af Amer 168, Est GFR (MDRD) Non-Af 139, BUN/Creatinine Ratio 18.8, Glucose 159 H, Calcium 8.2 L Micro: Microbiology 02/13/21 06:00 Sputum, Induced/Lukens Gram Stain - Final 02/13/21 06:00 Sputum, Induced/Lukens Respiratory Culture - Final Staphylococcus aureus 02/07/21 18:00 Stool Stool Occult Blood (MATILDA) - Final Occult Blood Positive 02/05/21 09:31 Sputum, Induced/Lukens Gram Stain - Final 02/05/21 09:31 Sputum, Induced/Lukens Respiratory Culture - Final Staphylococcus aureus 02/01/21 11:25 Blood Culture (Wb) - Central Line Blood Culture - Final No growth in 5 days. 02/01/21 11:45 Blood Culture (Wb) - Left Wrist Blood Culture - Final No growth in 5 days. 02/01/21 11:30 Sputum, Induced/Lukens Gram Stain - Final 02/01/21 11:30 Sputum, Induced/Lukens Respiratory Culture - Final Staphylococcus aureus 01/27/21 18:30 Blood Culture (Wb) - Anticubital Left Blood Culture - Final No growth in 5 days. 01/27/21 18:33 Blood Culture (Wb) - Central Line Blood Culture - Final No growth in 5 days. 01/30/21 13:20 Stool C. difficile DNA Amplification - Final 01/28/21 08:20 Sputum, Induced/Lukens Gram Stain - Final 01/28/21 08:20 Sputum, Induced/Lukens Respiratory Culture - Final Mixed normal respiratory eulalia. No Streptococcus pneumoniae, beta-hemolytic Streptococcus or Staphylococcus aureus isolated. 01/27/21 21:40 Urine Catheter - Catheter Urine Culture - Final Culture exhibits no growth. 01/27/21 19:30 Mucosa - Nose Respiratory Panel (PCR) - Final 01/27/21 19:25 Urine Catheter - Catheter Legionella Antigen - Final 01/27/21 19:25 Urine Catheter - Catheter Streptococcus pneumoniae Antigen (M - Final Radiography Diagnostic Testing: Radiology Impression Chest X-Ray 02/18/21 07:00 IMPRESSION: 1. Interval removal of endotracheal tube and nasogastric tube with worsening bibasilar atelectasis or pneumonia. 2. Right internal jugular deep venous line which is unchanged. 3. Right-sided thoracostomy tube with no change in the small lateral right pneumothorax. Electronically Signed: Everett Cee MD at 7:51 EDT Tel , Service support , Physical Exam Const General Appearance: ill appearing Resp Auscultation: diminished lung sounds Cardio regular rate GI soft to palpation and non-tender Assessment & Plan Assessment/Plan (1) Pneumothorax, right: PLAN: Patient does not have an air leak this morning although I was not able to elicit a strong cough. I will obtain a chest x-ray today as there was a small pneumothorax yesterday. If there is no pneumothorax on chest x-ray no air leak I will continue suction for 24 hours and then try to waterseal tomorrow. (2) Anastomotic leak of intestine: PLAN: Patient is a clear liquid diet and he may be advanced as tolerated to regular diet speech therapy recommends. Continue dressing changes over the midline and we may stop antibiotics for the abdomen once the white count normalizes. Unsure as to how long he needs to be on antibiotics from pulmonary standpoint. Stoma is producing stool. Jesús Wood MD Pager: [facility] [address] [place] [address], [address] [place] [address] Office:
--- NOTE | 2021-02-19 08:57 | WOUNDNOTE ---
Removed the ostomy appliance. appliance had been emptied for approx 50 cc's liquid green stool. stoma is pink and moist. stoma sits slightly above the skin level. peristomal skin is intact. cleansed skin with warm water. pat dry. applied a new 2 piece flat Lisa appliance with a small amount of stoma paste. pt tolerated well. see wound/stoma photo.
[2021-02-19] MEDS: oxyCODONE 5 MG Tablet PO ×2 (09:10→21:39)
[2021-02-19] MEDS: Acetaminophen 325 MG Tablet 650 MG PO (09:11)
[2021-02-19] MEDS: Ascorbic Acid 500 MG Tablet 1000 MG PO (09:12)
[2021-02-19] MEDS: Enoxaparin 30 MG/0.3 ML Syringe SC ×2 (09:13→21:34)
[2021-02-19] MEDS: busPIRone 5 MG Tablet 10 MG PO ×2 (09:13→21:34)
[2021-02-19] MEDS: 0.9% Saline Lock 10 ML Syringe IV (09:38)
--- NOTE | 2021-02-19 10:07 | WOUNDNOTE ---
wound/stoma photo: abdomen
--- NOTE | 2021-02-19 11:42 | NURSING ---
pt advanced to full liq pureed and pt with no cough or diff obs. pt aware and cognicant of going slow and alternating bites and sips. in at bedside and monitoring as well
[2021-02-19 11:45] LABS: Bedside Glucose 194 mg/dL (70-110)
--- NOTE | 2021-02-19 14:52 | NURSING ---
This RN reviewed SN charting and was with SN during all medication administration
--- NOTE | 2021-02-19 15:52 | PN.HOSP_ITS ---
Subjective Subjective I talked to the patient's . Patient HAS weak cough. Patient feels slow improvement. Objective Data Objective Data Vital Signs: Vital Signs Temp Pulse Resp BP Pulse Ox 98.2 F 87 28 H 127/77 H 95 02/19/21 14:36 02/19/21 15:00 02/19/21 14:36 02/19/21 14:36 02/19/21 14:36 Oxygen Flow Rate (L/min) 3 Oxygen Delivery Method Nasal Cannula Weight: 190 lb 0.615 oz Body Mass Index (BMI) 27.1 Intake & Output: Intake and Output for Last 24 Hours 02/17/21 02/18/21 02/19/21 23:59 23:59 23:59 Intake Total 1520.00 / 1520.00 2620.00 / 2620.00 1270 / 1270 Output Total 950 / 950 2825 / 2825 1160 / 1160 Balance 570.00 / 570.00 -205.00 / -205.00 110 / 110 Medical Nutrition Assessment Dietitian: Malnutrition Criteria Met Start: 02/15/21 12:47 Freq: Status: Active Protocol: Document 02/17/21 10:04 (Rec: 02/17/21 10:04 [id number]) Nutrition Malnutrition Evidence of Malnutrition Exists Yes Malnutrition (severe): Acute Illness/Injury Evidenced By Suboptimal Energy Intake ( Severe),Weight Loss (Severe) Intake Problem Inadequate Enteral Nutrition Infusion Etiology - Signs/Symptoms - Status Active Problem Inadequate Oral Intake Etiology related to GI dysfunction, mechanical intubation Signs/Symptoms as evidenced by no nutritional intake > 7 days Status Resolved Problem Clinical Problem Biting/Chewing Difficulty Etiology and swallowing difficulties r/ t prolonged mechanical intubation Signs/Symptoms as evidenced by need for consistency texture/ modifications per DIRECTOR INDUSTRIAL NURSING Status Active Problem Acute Disease or Injury Related Malnutrition Etiology severe acute malnutrition r/t inadequate energy intake d.t resp. failure d/t COVID-19, bowel perforation Signs/Symptoms as evidenced by estimated PO intake meeting <50% of estimated nutritional needs >5 days; unintentional wt loss of 30.1#/14.3% <1 month Status Active Problem Recommendation Dietitian Recommendations/Changes Recommend advance diet as tolerated to transitional, consistency per DIRECTOR INDUSTRIAL NURSING. Recommend ensure pudding or magic cup w/ meals when diet advanced past clear liquids. Continue daily wts. Lab / Micro Data Result Diagrams: 02/19/21 06:14 02/19/21 06:14 Labs: Laboratory Results - last 24 hr 02/18/21 17:12: POC Glucose 140 H 02/19/21 00:24: POC Glucose 134 H 02/19/21 06:02: POC Glucose 202 H 02/19/21 06:14: WBC 16.1 H, RBC 3.61 L, Hgb 11.8 L, Hct 36.0 L, MCV 99.7 H D, MCH 32.7 H, MCHC 32.8, RDW Std Deviation 48.4 H, RDW Coeff of Blanca 13.2, Plt Count 250, MPV 10.4, Immature Gran % (Auto) 2.600 H, Neut % (Auto) 82.0 H, Lymph % (Auto) 8.2 L, [place] % (Auto) 3.5, Eos % (Auto) 3.5, Baso % (Auto) 0.2, Absolute Neuts (auto) 13.2 H, Absolute Lymphs (auto) 1.31, Nucleated RBC % 0.1 02/19/21 06:14: Sodium 141, Potassium 3.9, Chloride 108 H, Carbon Dioxide 30.0, Anion Gap 3 L, BUN 12, Creatinine 0.64 L, Estim Creat Clear Calc 137.83, Est GFR (MDRD) Af Amer 168, Est GFR (MDRD) Non-Af 139, BUN/Creatinine Ratio 18.8, Glucose 159 H, Calcium 8.2 L 02/19/21 11:31: POC Glucose 194 H Micro: Microbiology 02/13/21 06:00 Sputum, Induced/Lukens Gram Stain - Final 02/13/21 06:00 Sputum, Induced/Lukens Respiratory Culture - Final Staphylococcus aureus 02/07/21 18:00 Stool Stool Occult Blood (MATILDA) - Final Occult Blood Positive 02/05/21 09:31 Sputum, Induced/Lukens Gram Stain - Final 02/05/21 09:31 Sputum, Induced/Lukens Respiratory Culture - Final Staphylococcus aureus 02/01/21 11:25 Blood Culture (Wb) - Central Line Blood Culture - Final No growth in 5 days. 02/01/21 11:45 Blood Culture (Wb) - Left Wrist Blood Culture - Final No growth in 5 days. 02/01/21 11:30 Sputum, Induced/Lukens Gram Stain - Final 02/01/21 11:30 Sputum, Induced/Lukens Respiratory Culture - Final Staphylococcus aureus 01/27/21 18:30 Blood Culture (Wb) - Anticubital Left Blood Culture - Final No growth in 5 days. 01/27/21 18:33 Blood Culture (Wb) - Central Line Blood Culture - Final No growth in 5 days. 01/30/21 13:20 Stool C. difficile DNA Amplification - Final 01/28/21 08:20 Sputum, Induced/Lukens Gram Stain - Final 01/28/21 08:20 Sputum, Induced/Lukens Respiratory Culture - Final Mixed normal respiratory eulalia. No Streptococcus pneumoniae, beta-hemolytic Streptococcus or Staphylococcus aureus isolated. 01/27/21 21:40 Urine Catheter - Catheter Urine Culture - Final Culture exhibits no growth. 01/27/21 19:30 Mucosa - Nose Respiratory Panel (PCR) - Final 01/27/21 19:25 Urine Catheter - Catheter Legionella Antigen - Final 01/27/21 19:25 Urine Catheter - Catheter Streptococcus pneumoniae Antigen (M - Final Radiography Diagnostic Testing: Radiology Impression Chest X-Ray 02/19/21 07:27 IMPRESSION: 1. Since 02/18/2021, stable. 2. Right more than left parenchymal airspace disease with lucencies in the right lung base that could represent loculated pleural air versus parenchymal cavitation. Electronically Signed: Nav Hernandez MD ([place]) at 8:07 EDT , Service support , Physical Exam Narrative General: Alert, Oriented x3, Cooperative HEENT: Atraumatic, PERRLA, EOMI, Normocephalic Oral: No Gingival or Mucosal Lesions/ Ulcerations Neck: Supple, No JVD, Negative Carotid Bruits Lungs: Air entry diminished more on right lung. Right chest tube present. No air leak. Weak cough reflex. Cardiovascular: Regular rate, Regular Rhythm, Normal S1, Normal S2, No murmurs Abdomen: Bowel Sounds sluggish. Colostomy shows serous drainage. No tenderness or distention. : No renal angle tenderness. No suprapubic tenderness. Extremities: No edema, Capillary Refill Less than 3 Seconds Skin: No rashes, No breakdown Musculoskeletal: No Tenderness to Palpation of Joints or Extremities Neurological: Cranial nerves II-XII grossly intact, DTR 2+/4 Psych/Mental Status: Flat affect Assessment & Plan Assessment/Plan (1) Acute respiratory failure with hypoxia: PLAN: 1. Acute hypoxic respiratory failure/tension pneumothorax ?Secondary to SARS-CoV-2 pneumonia. Patient admitted to the intensive care unit placed on ventilator. Patient was outside the window for remdesivir. Was started on Decadron. Did receive a dose of Tocilizumab. Patient had tension pneumothorax and chest tube was placed on 02/15. Patient was extubated on 02/16. No obvious air leak. Chest x-ray reviewed, more lung opacity on the right side than left side. Possible loculated pleural air or parenchymal cavitation right lung base. Seen by surgeon and plan for waterseal tomorrow 2. Severe sepsis ?Secondary to SARS-CoV-2 pneumonia with superimposed bacterial pneumonia (MSSA pneumonia) as well as perforated cecum. Patient did receive IV fluid resuscitation and subsequently started on broad-spectrum antibiotic therapy with Zosyn and vancomycin with consultation placed to ID. Patient had prolonged antibiotic. Discussed with ID. IV Zosyn was discontinued. 3. Perforated cecum with very dilated ascending and transverse colon ?Patient underwent exploratory laparotomy with extended right hemicolectomy on 02/04/[address] Wood. On clear liquid diet 4. Hyperglycemia ?Secondary to chronic steroid use Patient is currently on long-acting insulin in addition to sliding scale coverage 5. Essential hypertension ?Blood pressure 122/77 6. Dyslipidemia ?On statin therapy prior to admission 7. Anxiety -Recently started on BuSpar which has seemed to help we will continue DVT: Lovenox Charges/Coding Visit Charges Inpatient E&M: 08020 Subs Hosp L2
--- NOTE | 2021-02-19 16:32 | PCM.PN.ID ---
Physical Exam Narrative Feeling better, diet being advanced, no fever, some clear sputum Const alert General Appearance: cooperative Resp Auscultation: diminished lung sounds Cardio regular rate and regular rhythm GI normal to inspection, nondistended, normoactive bowel sounds Skin no rashes or lesions noted ID ID: Route of nutrition/ use of supplements: [] Nutritional Intake: [] IV Site: [] Colon Catheter: [] Assessment & Plan Assessment/Plan (1) Pneumonia due to COVID-19 virus: PLAN: Sx started around 01/15. Isolate for 20 days from that point. Unvaccinated. Encouraged vaccine once recovered. Cxs neg. Wbc remains elevated but improved. UAg neg. CT neg for PE. Given toci x1 on 01/27. Completed dex. Sputum with mssa. Now with bowel perf, taken to OR 02/[address] Wood for extended R hemicolectomy. Possible side effect of tocilizumab, has been reported post marketing; d/w pharmacy, report sent. On zosyn. Taken back to OR 02/12 for fascial dehiscence and small bowel evisceration. Now with tension pneumo requiring chest tube. Off vent now, down to 3L NC. Will stop zosyn today. Will follow (2) Acute respiratory failure with hypoxia: (3) Perforated bowel:
[2021-02-19 17:26] LABS: Bedside Glucose 172 mg/dL (70-110)
[2021-02-19] MEDS: Pantoprazole Sodium 40 MG Tablet PO (21:34)
[2021-02-19] MEDS: MELATONIN 3 MG TABLET PO (21:34)
[2021-02-20] VITALS (12 sets, daily range): BP systolic 123–142; BP diastolic 80–89; PULSE 96–116; RESP 18–28; TEMP 36.3–37.3; O2SAT 93–98
[2021-02-20 00:25] LABS: Bedside Glucose 133 mg/dL (70-110)
[2021-02-20] MEDS: oxyCODONE 5 MG Tablet PO ×2 (03:40→20:59)
[2021-02-20] MEDS: Acetaminophen 325 MG Tablet 650 MG PO ×2 (03:40→20:59)
--- NOTE | 2021-02-20 04:54 | NURSING ---
Abdominal dressing changed this AM. Moderate amount of brown/mcallister colored drainage on dressing. Packed open wound w/ wet gauze, dry gauze and ABDs placed over top. Pt tolerated procedure well.
[2021-02-20] MEDS: 0.9% Saline Lock 10 ML Syringe IV (05:40)
[2021-02-20] MEDS: Menthol/Lanolin/Calamine/Znox 113 GM Tube 1 APPLIC TOPICAL ×3 (05:40→20:59)
[2021-02-20 05:51] LABS: Bedside Glucose 141 mg/dL (70-110)
--- NOTE | 2021-02-20 08:15 | PN.HOSP_ITS ---
Subjective Subjective Heart rate and blood pressure are controlled. Patient has leukocytosis. Mild sinus tachycardia. On 4 L of oxygen. Objective Data Objective Data Vital Signs: Vital Signs Temp Pulse Resp BP Pulse Ox 99.2 F H 102 H 20 H 131/89 H 96 02/20/21 05:33 02/20/21 07:00 02/20/21 05:33 02/20/21 05:33 02/20/21 05:33 Oxygen Flow Rate (L/min) 4 Oxygen Delivery Method Nasal Cannula Weight: 177 lb 14.609 oz Body Mass Index (BMI) 27.1 Intake & Output: Intake and Output for Last 24 Hours 02/18/21 02/19/21 02/20/21 23:59 23:59 23:59 Intake Total 2620.00 / 2620.00 2240 / 2300 160 / 160 Output Total 2825 / 2825 2075 / 2835 1030 / 1030 Balance -205.00 / -205.00 165 / -535 -870 / -870 Medical Nutrition Assessment Dietitian: Malnutrition Criteria Met Start: 02/15/21 12:47 Freq: Status: Active Protocol: Document 02/17/21 10:04 (Rec: 02/17/21 10:04 [id number]) Nutrition Malnutrition Evidence of Malnutrition Exists Yes Malnutrition (severe): Acute Illness/Injury Evidenced By Suboptimal Energy Intake ( Severe),Weight Loss (Severe) Intake Problem Inadequate Enteral Nutrition Infusion Etiology - Signs/Symptoms - Status Active Problem Inadequate Oral Intake Etiology related to GI dysfunction, mechanical intubation Signs/Symptoms as evidenced by no nutritional intake > 7 days Status Resolved Problem Clinical Problem Biting/Chewing Difficulty Etiology and swallowing difficulties r/ t prolonged mechanical intubation Signs/Symptoms as evidenced by need for consistency texture/ modifications per ELEMENTARY SCHOOL TUTOR Status Active Problem Acute Disease or Injury Related Malnutrition Etiology severe acute malnutrition r/t inadequate energy intake d.t resp. failure d/t COVID-19, bowel perforation Signs/Symptoms as evidenced by estimated PO intake meeting <50% of estimated nutritional needs >5 days; unintentional wt loss of 30.1#/14.3% <1 month Status Active Problem Recommendation Dietitian Recommendations/Changes Recommend advance diet as tolerated to transitional, consistency per ELEMENTARY SCHOOL TUTOR. Recommend ensure pudding or magic cup w/ meals when diet advanced past clear liquids. Continue daily wts. Lab / Micro Data Result Diagrams: 02/20/21 08:28 02/20/21 08:28 Labs: Laboratory Results - last 24 hr 02/19/21 11:31: POC Glucose 194 H 02/19/21 16:48: POC Glucose 172 H 02/20/21 00:09: POC Glucose 133 H 02/20/21 05:35: POC Glucose 141 H Micro: Microbiology 02/13/21 06:00 Sputum, Induced/Lukens Gram Stain - Final 02/13/21 06:00 Sputum, Induced/Lukens Respiratory Culture - Final Staphylococcus aureus 02/07/21 18:00 Stool Stool Occult Blood (MATILDA) - Final Occult Blood Positive 02/05/21 09:31 Sputum, Induced/Lukens Gram Stain - Final 02/05/21 09:31 Sputum, Induced/Lukens Respiratory Culture - Final Staphylococcus aureus 02/01/21 11:25 Blood Culture (Wb) - Central Line Blood Culture - Final No growth in 5 days. 02/01/21 11:45 Blood Culture (Wb) - Left Wrist Blood Culture - Final No growth in 5 days. 02/01/21 11:30 Sputum, Induced/Lukens Gram Stain - Final 02/01/21 11:30 Sputum, Induced/Lukens Respiratory Culture - Final Staphylococcus aureus 01/27/21 18:30 Blood Culture (Wb) - Anticubital Left Blood Culture - Final No growth in 5 days. 01/27/21 18:33 Blood Culture (Wb) - Central Line Blood Culture - Final No growth in 5 days. 01/30/21 13:20 Stool C. difficile DNA Amplification - Final 01/28/21 08:20 Sputum, Induced/Lukens Gram Stain - Final 01/28/21 08:20 Sputum, Induced/Lukens Respiratory Culture - Final Mixed normal respiratory eulalia. No Streptococcus pneumoniae, beta-hemolytic Streptococcus or Staphylococcus aureus isolated. 01/27/21 21:40 Urine Catheter - Catheter Urine Culture - Final Culture exhibits no growth. 01/27/21 19:30 Mucosa - Nose Respiratory Panel (PCR) - Final 01/27/21 19:25 Urine Catheter - Catheter Legionella Antigen - Final 01/27/21 19:25 Urine Catheter - Catheter Streptococcus pneumoniae Antigen (M - Final Physical Exam Narrative General: Alert, Oriented x3, Cooperative HEENT: Atraumatic, PERRLA, EOMI, Normocephalic Oral: No Gingival or Mucosal Lesions/ Ulcerations Neck: Supple, No JVD, Negative Carotid Bruits Lungs: Air entry diminished more on right lung. Right chest tube present. No air leak. Cardiovascular: Regular rate, Regular Rhythm, Normal S1, Normal S2, No murmurs Abdomen: Bowel Sounds sluggish. Colostomy shows serous drainage. No tenderness or distention. : No renal angle tenderness. No suprapubic tenderness. Extremities: No edema, Capillary Refill Less than 3 Seconds Skin: No rashes, No breakdown Musculoskeletal: No Tenderness to Palpation of Joints or Extremities Neurological: Cranial nerves II-XII grossly intact, DTR 2+/4 Psych/Mental Status: Flat affect Assessment & Plan Assessment/Plan (1) Acute respiratory failure with hypoxia: PLAN: 1. Acute hypoxic respiratory failure/tension pneumothorax ?Secondary to SARS-CoV-2 pneumonia. Patient admitted to the intensive care unit placed on ventilator. Patient was outside the window for remdesivir. Was started on Decadron. Did receive a dose of Tocilizumab. Patient had tension pneumothorax and chest tube was placed on 02/15. Patient was extubated on 02/16. No obvious air leak. Chest x-ray reviewed, more lung opacity on the right side than left side. Possible loculated pleural air or parenchymal cavitation right lung base. Seen by surgeon and plan for waterseal tomorrow 02/20: Discussed with drill presser and surgeon. Surgeon's concern about right lung opacity on chest x-ray and discussed with drill presser regarding indication of CT chest. Patient still gets very short of breath on mild exercise. No high-grade fever. 2. Severe sepsis ?Secondary to SARS-CoV-2 pneumonia with superimposed bacterial pneumonia (MSSA pneumonia) as well as perforated cecum. Patient did receive IV fluid resuscitation and subsequently started on broad-spectrum antibiotic therapy with Zosyn and vancomycin with consultation placed to ID. Patient had prolonged antibiotic. Discussed with ID. IV Zosyn was discontinued. 3. Perforated cecum with very dilated ascending and transverse colon ?Patient underwent exploratory laparotomy with extended right hemicolectomy on 02/04/[address] Wood. On clear liquid diet 4. Hyperglycemia ?Secondary to chronic steroid use Patient is currently on long-acting insulin in addition to sliding scale coverage 5. Essential hypertension ?Blood pressure 122/77 6. Dyslipidemia ?On statin therapy prior to admission 7. Anxiety -Recently started on BuSpar which has seemed to help we will continue DVT: Lovenox Charges/Coding Visit Charges Inpatient E&M: 54240 Subs Hosp L2
[2021-02-20 08:48] LABS: Absolute Lymphocyte Count 1.07 X10^3/uL (0.83-4.51); Absolute Neutrophil Count 12.3 X10^3/uL (2.0-7.7); Basophil# 0.04 X10^3/uL; Basophil% 0.3 % (0-1); Eosinophil# 0.41 X10^3/uL; Eosinophils% 2.8 % (0-5); Hematocrit 32.8 % (40-54); Hemoglobin 10.7 g/dL (13.0-16.5); Lymphocyte # 1.07 X10^3/ul (0.83-4.51); Lymphocyte % 7.2 % (19-41); Mean Corp Hgb Conc 32.6 g/dL (32-36); Mean Corpuscular Hgb 32.5 pg (27.0-32.0); Mean Corpuscular Volume 99.7 fL (80-94); Mean Platelet Vol. 10.4 fl (6.2-12.0); Monocyte% 4.7 % (0-10); NRBC Flagged by Analyzer 0 % (0-5); Neutrophil # 12.28 X10^3/uL (2.7-7.7); Neutrophil % 82.8 % (47-70); Platelet Count 329 K/mm3 (150-450); RBC Distribution Width CV 13.2 % (11.6-14.6); RBC Distribution Width SD 48.6 fl (35.1-43.9); Red Blood Count 3.29 M/mm3 (4.6-6.2); White Blood Count 14.8 K/mm3 (4.4-11.0)
[2021-02-20 09:16] LABS: ALB/GLOB Ratio 0.3 RATIO (0.9-2.4); AST(SGOT) 110 U/L (15-37); Alanine Aminotransfer ALT/SGPT 639 U/L (16-61); Albumin, Serum 1.7 g/dL (3.2-5.0); Alkaline Phosphatase 141 U/L (45-117); Anion Gap 5 (5-15); BUN 10 mg/dL (7-18); BUN/Creat Ratio 17.8 RATIO (10-20); Calcium,Total 8.9 mg/dL (8.5-10.1); Chloride 106 mmol/L (98-107); Creatinine, Serum 0.56 mg/dL (0.70-1.30); EST Glomerular Filtration Rate 161 mL/min (>60); Est Glom Filt Rate - Afr Amer 194 mL/min (>60); Estimated Creatinine Clearance 157.51 ml/min; Globulin 4.9 g/dL (2.2-4.2); Glucose 150 mg/dL (74-106); Magnesium 2.2 mg/dL (1.6-2.6); Potassium 3.4 mmol/L (3.5-5.1); Protein, Total 6.6 g/dL (6.4-8.2); Sodium Level 143 mmol/L (136-145)
--- NOTE | 2021-02-20 09:25 | PCM.PN.SRG ---
Subjective Subjective Patient notes some abdominal soreness when coughing. No nausea or vomiting as he tolerates diet Objective Data Objective Data Vital Signs: Vital Signs Temp Pulse Resp BP Pulse Ox 99.2 F H 102 H 28 H 131/89 H 93 02/20/21 05:33 02/20/21 07:00 02/20/21 08:00 02/20/21 05:33 02/20/21 08:30 Oxygen Flow Rate (L/min) 6 Oxygen Delivery Method Nasal Cannula Weight: 177 lb 14.609 oz Body Mass Index (BMI) 27.1 Intake & Output: Intake and Output for Last 24 Hours 02/18/21 02/19/21 02/20/21 23:59 23:59 23:59 Intake Total 2620.00 / 2620.00 2240 / 2300 160 / 160 Output Total 2825 / 2825 2075 / 2835 1030 / 1030 Balance -205.00 / -205.00 165 / -535 -870 / -870 Medical Nutrition Assessment Dietitian: Malnutrition Criteria Met Start: 02/15/21 12:47 Freq: Status: Active Protocol: Document 02/17/21 10:04 (Rec: 02/17/21 10:04 [id number]) Nutrition Malnutrition Evidence of Malnutrition Exists Yes Malnutrition (severe): Acute Illness/Injury Evidenced By Suboptimal Energy Intake ( Severe),Weight Loss (Severe) Intake Problem Inadequate Enteral Nutrition Infusion Etiology - Signs/Symptoms - Status Active Problem Inadequate Oral Intake Etiology related to GI dysfunction, mechanical intubation Signs/Symptoms as evidenced by no nutritional intake > 7 days Status Resolved Problem Clinical Problem Biting/Chewing Difficulty Etiology and swallowing difficulties r/ t prolonged mechanical intubation Signs/Symptoms as evidenced by need for consistency texture/ modifications per WIRING TECHNICIAN Status Active Problem Acute Disease or Injury Related Malnutrition Etiology severe acute malnutrition r/t inadequate energy intake d.t resp. failure d/t COVID-19, bowel perforation Signs/Symptoms as evidenced by estimated PO intake meeting <50% of estimated nutritional needs >5 days; unintentional wt loss of 30.1#/14.3% <1 month Status Active Problem Recommendation Dietitian Recommendations/Changes Recommend advance diet as tolerated to transitional, consistency per WIRING TECHNICIAN. Recommend ensure pudding or magic cup w/ meals when diet advanced past clear liquids. Continue daily wts. Lab / Micro Data Result Diagrams: 02/20/21 08:28 02/20/21 08:28 Labs: Laboratory Results - last 24 hr 02/19/21 11:31: POC Glucose 194 H 02/19/21 16:48: POC Glucose 172 H 02/20/21 00:09: POC Glucose 133 H 02/20/21 05:35: POC Glucose 141 H 02/20/21 08:28: WBC 14.8 H, RBC 3.29 L, Hgb 10.7 L, Hct 32.8 L, MCV 99.7 H, MCH 32.5 H, MCHC 32.6, RDW Std Deviation 48.6 H, RDW Coeff of Blanca 13.2, Plt Count 329, MPV 10.4, Immature Gran % (Auto) 2.200 H, Neut % (Auto) 82.8 H, Lymph % (Auto) 7.2 L, [place] % (Auto) 4.7, Eos % (Auto) 2.8, Baso % (Auto) 0.3, Absolute Neuts (auto) 12.3 H, Absolute Lymphs (auto) 1.07, Nucleated RBC % 0 02/20/21 08:28: Sodium 143, Potassium 3.4 L, Chloride 106, Carbon Dioxide 32.0, Anion Gap 5, BUN 10, Creatinine 0.56 L, Estim Creat Clear Calc 157.51, Est GFR (MDRD) Af Amer 194, Est GFR (MDRD) Non-Af 161, BUN/Creatinine Ratio 17.8, Glucose 150 H, Calcium 8.9, Magnesium 2.2, Total Bilirubin 0.50, AST 110 H, ALT 639 H, Alkaline Phosphatase 141 H, Total Protein 6.6, Albumin 1.7 L, Globulin 4.9 H, Albumin/Globulin Ratio 0.3 L Micro: Microbiology 02/13/21 06:00 Sputum, Induced/Lukens Gram Stain - Final 02/13/21 06:00 Sputum, Induced/Lukens Respiratory Culture - Final Staphylococcus aureus 02/07/21 18:00 Stool Stool Occult Blood (MATILDA) - Final Occult Blood Positive 02/05/21 09:31 Sputum, Induced/Lukens Gram Stain - Final 02/05/21 09:31 Sputum, Induced/Lukens Respiratory Culture - Final Staphylococcus aureus 02/01/21 11:25 Blood Culture (Wb) - Central Line Blood Culture - Final No growth in 5 days. 02/01/21 11:45 Blood Culture (Wb) - Left Wrist Blood Culture - Final No growth in 5 days. 02/01/21 11:30 Sputum, Induced/Lukens Gram Stain - Final 02/01/21 11:30 Sputum, Induced/Lukens Respiratory Culture - Final Staphylococcus aureus 01/27/21 18:30 Blood Culture (Wb) - Anticubital Left Blood Culture - Final No growth in 5 days. 01/27/21 18:33 Blood Culture (Wb) - Central Line Blood Culture - Final No growth in 5 days. 01/30/21 13:20 Stool C. difficile DNA Amplification - Final 01/28/21 08:20 Sputum, Induced/Lukens Gram Stain - Final 01/28/21 08:20 Sputum, Induced/Lukens Respiratory Culture - Final Mixed normal respiratory eulalia. No Streptococcus pneumoniae, beta-hemolytic Streptococcus or Staphylococcus aureus isolated. 01/27/21 21:40 Urine Catheter - Catheter Urine Culture - Final Culture exhibits no growth. 01/27/21 19:30 Mucosa - Nose Respiratory Panel (PCR) - Final 01/27/21 19:25 Urine Catheter - Catheter Legionella Antigen - Final 01/27/21 19:25 Urine Catheter - Catheter Streptococcus pneumoniae Antigen (M - Final Physical Exam Const no apparent distress Cardio regular rate GI soft to palpation Palpation: tender Assessment & Plan Assessment/Plan (1) Pneumothorax, right: PLAN: The patient has a persistent small air leak when coughing. It has decreased since being intubated significantly. I recommend continuing suction until nearly completely stopped. I will probably order a CT of the chest tomorrow to evaluate the right lung to make sure there is no pleural fluid collection causing this white count. (2) Anastomotic leak of intestine: PLAN: Patient is tolerating a soft diet. He is having stool from his ileostomy. Continue wet-to-dry dressings over the midline incision until VAC can be replaced. Jesús Wood MD Pager: [facility] [address] [place] [address], [address] [place] [address] Office:
[2021-02-20] MEDS: Pantoprazole Sodium 40 MG Tablet PO ×2 (09:52→20:59)
[2021-02-20] MEDS: Ascorbic Acid 500 MG Tablet 1000 MG PO (09:52)
[2021-02-20] MEDS: busPIRone 5 MG Tablet 10 MG PO ×2 (09:52→20:58)
[2021-02-20] MEDS: Enoxaparin 30 MG/0.3 ML Syringe SC ×2 (09:52→20:58)
[2021-02-20 12:10] LABS: Bedside Glucose 126 mg/dL (70-110)
[2021-02-20 16:50] LABS: Bedside Glucose 120 mg/dL (70-110)
[2021-02-20] MEDS: MELATONIN 3 MG TABLET PO (20:59)
[2021-02-20 23:15] LABS: Bedside Glucose 123 mg/dL (70-110)
[2021-02-21] VITALS (18 sets, daily range): BP systolic 118–158; BP diastolic 73–119; PULSE 94–121; RESP 18–35; TEMP 36.4–37; O2SAT 91–97
[2021-02-21] MEDS: oxyCODONE 5 MG Tablet PO (03:07)
[2021-02-21] MEDS: Acetaminophen 325 MG Tablet 650 MG PO (03:08)
[2021-02-21] MEDS: Menthol/Lanolin/Calamine/Znox 113 GM Tube 1 APPLIC TOPICAL ×3 (05:42→22:40)
[2021-02-21 05:51] LABS: Bedside Glucose 119 mg/dL (70-110)
--- NOTE | 2021-02-21 08:00 | PCM.PN.SRG ---
Subjective Subjective Patient notes that he tolerated diet well yesterday Objective Data Objective Data Vital Signs: Vital Signs Temp Pulse Resp BP Pulse Ox 97.7 F L 99 18 125/82 H 94 02/21/21 03:00 02/21/21 07:00 02/21/21 03:00 02/21/21 03:00 02/21/21 07:35 Oxygen Flow Rate (L/min) 4 Oxygen Delivery Method Nasal Cannula Weight: 180 lb 1.883 oz Body Mass Index (BMI) 27.1 Intake & Output: Intake and Output for Last 24 Hours 02/19/21 02/20/21 02/21/21 23:59 23:59 23:59 Intake Total 2240 / 2300 1080 / 1080 120 / 120 Output Total 2075 / 2835 2130 / 2130 410 / 410 Balance 165 / -535 -1050 / -1050 -290 / -290 Medical Nutrition Assessment Dietitian: Malnutrition Criteria Met Start: 02/15/21 12:47 Freq: Status: Active Protocol: Document 02/17/21 10:04 (Rec: 02/17/21 10:04 [id number]) Nutrition Malnutrition Evidence of Malnutrition Exists Yes Malnutrition (severe): Acute Illness/Injury Evidenced By Suboptimal Energy Intake ( Severe),Weight Loss (Severe) Intake Problem Inadequate Enteral Nutrition Infusion Etiology - Signs/Symptoms - Status Active Problem Inadequate Oral Intake Etiology related to GI dysfunction, mechanical intubation Signs/Symptoms as evidenced by no nutritional intake > 7 days Status Resolved Problem Clinical Problem Biting/Chewing Difficulty Etiology and swallowing difficulties r/ t prolonged mechanical intubation Signs/Symptoms as evidenced by need for consistency texture/ modifications per PLANTING MACHINE OPERATOR Status Active Problem Acute Disease or Injury Related Malnutrition Etiology severe acute malnutrition r/t inadequate energy intake d.t resp. failure d/t COVID-19, bowel perforation Signs/Symptoms as evidenced by estimated PO intake meeting <50% of estimated nutritional needs >5 days; unintentional wt loss of 30.1#/14.3% <1 month Status Active Problem Recommendation Dietitian Recommendations/Changes Recommend advance diet as tolerated to transitional, consistency per PLANTING MACHINE OPERATOR. Recommend ensure pudding or magic cup w/ meals when diet advanced past clear liquids. Continue daily wts. Lab / Micro Data Result Diagrams: 02/20/21 08:28 02/20/21 08:28 Labs: Laboratory Results - last 24 hr 02/20/21 08:28: WBC 14.8 H, RBC 3.29 L, Hgb 10.7 L, Hct 32.8 L, MCV 99.7 H, MCH 32.5 H, MCHC 32.6, RDW Std Deviation 48.6 H, RDW Coeff of Blanca 13.2, Plt Count 329, MPV 10.4, Immature Gran % (Auto) 2.200 H, Neut % (Auto) 82.8 H, Lymph % (Auto) 7.2 L, Patrick % (Auto) 4.7, Eos % (Auto) 2.8, Baso % (Auto) 0.3, Absolute Neuts (auto) 12.3 H, Absolute Lymphs (auto) 1.07, Nucleated RBC % 0 02/20/21 08:28: Sodium 143, Potassium 3.4 L, Chloride 106, Carbon Dioxide 32.0, Anion Gap 5, BUN 10, Creatinine 0.56 L, Estim Creat Clear Calc 157.51, Est GFR (MDRD) Af Amer 194, Est GFR (MDRD) Non-Af 161, BUN/Creatinine Ratio 17.8, Glucose 150 H, Calcium 8.9, Magnesium 2.2, Total Bilirubin 0.50, AST 110 H, ALT 639 H, Alkaline Phosphatase 141 H, Total Protein 6.6, Albumin 1.7 L, Globulin 4.9 H, Albumin/Globulin Ratio 0.3 L 02/20/21 11:38: POC Glucose 126 H 02/20/21 16:26: POC Glucose 120 H 02/20/21 23:07: POC Glucose 123 H 02/21/21 05:41: POC Glucose 119 H Micro: Microbiology 02/13/21 06:00 Sputum, Induced/Lukens Gram Stain - Final 02/13/21 06:00 Sputum, Induced/Lukens Respiratory Culture - Final Staphylococcus aureus 02/07/21 18:00 Stool Stool Occult Blood (MATILDA) - Final Occult Blood Positive 02/05/21 09:31 Sputum, Induced/Lukens Gram Stain - Final 02/05/21 09:31 Sputum, Induced/Lukens Respiratory Culture - Final Staphylococcus aureus 02/01/21 11:25 Blood Culture (Wb) - Central Line Blood Culture - Final No growth in 5 days. 02/01/21 11:45 Blood Culture (Wb) - Left Wrist Blood Culture - Final No growth in 5 days. 02/01/21 11:30 Sputum, Induced/Lukens Gram Stain - Final 02/01/21 11:30 Sputum, Induced/Lukens Respiratory Culture - Final Staphylococcus aureus 01/27/21 18:30 Blood Culture (Wb) - Anticubital Left Blood Culture - Final No growth in 5 days. 01/27/21 18:33 Blood Culture (Wb) - Central Line Blood Culture - Final No growth in 5 days. 01/30/21 13:20 Stool C. difficile DNA Amplification - Final 01/28/21 08:20 Sputum, Induced/Lukens Gram Stain - Final 01/28/21 08:20 Sputum, Induced/Lukens Respiratory Culture - Final Mixed normal respiratory eulalia. No Streptococcus pneumoniae, beta-hemolytic Streptococcus or Staphylococcus aureus isolated. 01/27/21 21:40 Urine Catheter - Catheter Urine Culture - Final Culture exhibits no growth. 01/27/21 19:30 Mucosa - Nose Respiratory Panel (PCR) - Final 01/27/21 19:25 Urine Catheter - Catheter Legionella Antigen - Final 01/27/21 19:25 Urine Catheter - Catheter Streptococcus pneumoniae Antigen (M - Final Physical Exam Const no apparent distress Resp normal respiratory effort Cardio regular rate GI soft to palpation and non-tender Assessment & Plan Assessment/Plan (1) Pneumothorax, right: PLAN: Patient does not have an air leak this morning on suction. I will order a CT of the chest to evaluate for the air collections that were on the initial x-ray 2 days ago. If the CT does not show any pleural air or fluid collections I will place on waterseal today. (2) Anastomotic leak of intestine: PLAN: Patient is tolerating a diet. Continue diet as tolerated. Continue wound VAC. Retention sutures will be removed once the healing advances some more. Jesús Wood MD Pager: [facility] [address] [place] [address], [address] [place] [address] Office:
--- NOTE | 2021-02-21 08:50 | CT_ITS ---
STUDY: CT CHEST WITHOUT CONTRAST REASON FOR EXAM: Male, 55 years old. right pneumothorax RADIATION DOSAGE (If Supplied By Facility): CTDIvol = ( 19.17 ) mGy, DLP = ( 641.71 ) mGycm TECHNIQUE: Transaxial imaging was performed without the administration of intravenous contrast material. Individualized dose optimization techniques were used for this CT. COMPARISON: Chest x-ray earlier today, CT 02/14/2021 FINDINGS: Dense alveolar densities in the right middle lobe and right lower lobe consistent with pneumonia or atelectasis. Groundglass opacities throughout the right upper lobe inferior lingula and left lower lobe consistent with subsegmental atelectasis or pneumonitis. Right-sided thoracostomy tube with a moderate sized hydropneumothorax with multiple air-filled cavities both posteriorly and a 7 cm cavity with an air-fluid level anteriorly consistent with a loculated pleural effusion, likely empyema. Normal heart and pericardium. There are calcifications of the coronary arteries. Normal mediastinum. Normal hilar regions. Normal unenhanced pulmonary arteries. Normal aorta arch and descending thoracic aorta. Normal osseous structures. There is no demonstrated abnormality of the visualized upper abdomen. CT/Chest without Contrast IMPRESSION: Dense right middle lobe and right lower lobe pneumonia or atelectasis with a moderate sized organized right-sided hydropneumothorax with multiple loculations containing gas including a 7 cm loculation anteriorly with an air-fluid level worrisome for empyema with a thoracostomy tube. Electronically Signed: Everett Cee MD at 9:42 EDT Tel , Service support ,
[2021-02-21] MEDS: Enoxaparin 30 MG/0.3 ML Syringe SC ×2 (10:24→22:35)
[2021-02-21] MEDS: busPIRone 5 MG Tablet 10 MG PO ×2 (10:24→22:35)
[2021-02-21] MEDS: Ascorbic Acid 500 MG Tablet 1000 MG PO (10:24)
[2021-02-21] MEDS: Pantoprazole Sodium 40 MG Tablet PO ×2 (10:24→22:36)
--- NOTE | 2021-02-21 10:38 | CASEMGMT ---
According to the [facility] website, the following are in-network tertiary facilities: [facility], [place], [facility], [facility], and . Devin COLLIER CM
--- NOTE | 2021-02-21 11:16 | WOUNDNOTE ---
The ostomy appliance was changed this am by the voucher examiner nurse. appliance is intact at this time. present at bedside.
[2021-02-21 11:46] LABS: Bedside Glucose 120 mg/dL (70-110)
--- NOTE | 2021-02-21 12:32 | WOUNDNOTE ---
wound photo: abdomen
--- NOTE | 2021-02-21 13:45 | PCM.PN.HOSP ---
Subjective Subjective Patient is still easily gets short of breath. CT chest shows and shows multiple loculated air-fluid cavity and effusion with suspicion of empyema. Plan for transfer to tertiary care. Discussed with patient's . Objective Data Objective Data Vital Signs: Vital Signs Temp Pulse Resp BP Pulse Ox 97.7 F L 106 H 20 H 131/86 H 95 02/21/21 08:31 02/21/21 11:26 02/21/21 08:31 02/21/21 08:31 02/21/21 08:31 Oxygen Flow Rate (L/min) 5 Oxygen Delivery Method Nasal Cannula Weight: 180 lb 1.883 oz Body Mass Index (BMI) 27.1 Intake & Output: Intake and Output for Last 24 Hours 02/19/21 02/20/21 02/21/21 23:59 23:59 23:59 Intake Total 2240 / 2300 1080 / 1080 220 / 220 Output Total 2075 / 2835 2130 / 2130 750 / 750 Balance 165 / -535 -1050 / -1050 -530 / -530 Medical Nutrition Assessment Dietitian: Malnutrition Criteria Met Start: 02/15/21 12:47 Freq: Status: Active Protocol: Document 02/17/21 10:04 (Rec: 02/17/21 10:04 [id number]) Nutrition Malnutrition Evidence of Malnutrition Exists Yes Malnutrition (severe): Acute Illness/Injury Evidenced By Suboptimal Energy Intake ( Severe),Weight Loss (Severe) Intake Problem Inadequate Enteral Nutrition Infusion Etiology - Signs/Symptoms - Status Active Problem Inadequate Oral Intake Etiology related to GI dysfunction, mechanical intubation Signs/Symptoms as evidenced by no nutritional intake > 7 days Status Resolved Problem Clinical Problem Biting/Chewing Difficulty Etiology and swallowing difficulties r/ t prolonged mechanical intubation Signs/Symptoms as evidenced by need for consistency texture/ modifications per CONTRACT ADMINISTRATION COORDINATOR Status Active Problem Acute Disease or Injury Related Malnutrition Etiology severe acute malnutrition r/t inadequate energy intake d.t resp. failure d/t COVID-19, bowel perforation Signs/Symptoms as evidenced by estimated PO intake meeting <50% of estimated nutritional needs >5 days; unintentional wt loss of 30.1#/14.3% <1 month Status Active Problem Recommendation Dietitian Recommendations/Changes Recommend advance diet as tolerated to transitional, consistency per CONTRACT ADMINISTRATION COORDINATOR. Recommend ensure pudding or magic cup w/ meals when diet advanced past clear liquids. Continue daily wts. Lab / Micro Data Result Diagrams: 02/20/21 08:28 02/20/21 08:28 Labs: Laboratory Results - last 24 hr 02/20/21 16:26: POC Glucose 120 H 02/20/21 23:07: POC Glucose 123 H 02/21/21 05:41: POC Glucose 119 H 02/21/21 11:31: POC Glucose 120 H Micro: Microbiology 02/13/21 06:00 Sputum, Induced/Lukens Gram Stain - Final 02/13/21 06:00 Sputum, Induced/Lukens Respiratory Culture - Final Staphylococcus aureus 02/07/21 18:00 Stool Stool Occult Blood (MATILDA) - Final Occult Blood Positive 02/05/21 09:31 Sputum, Induced/Lukens Gram Stain - Final 02/05/21 09:31 Sputum, Induced/Lukens Respiratory Culture - Final Staphylococcus aureus 02/01/21 11:25 Blood Culture (Wb) - Central Line Blood Culture - Final No growth in 5 days. 02/01/21 11:45 Blood Culture (Wb) - Left Wrist Blood Culture - Final No growth in 5 days. 02/01/21 11:30 Sputum, Induced/Lukens Gram Stain - Final 02/01/21 11:30 Sputum, Induced/Lukens Respiratory Culture - Final Staphylococcus aureus 01/27/21 18:30 Blood Culture (Wb) - Anticubital Left Blood Culture - Final No growth in 5 days. 01/27/21 18:33 Blood Culture (Wb) - Central Line Blood Culture - Final No growth in 5 days. 01/30/21 13:20 Stool C. difficile DNA Amplification - Final 01/28/21 08:20 Sputum, Induced/Lukens Gram Stain - Final 01/28/21 08:20 Sputum, Induced/Lukens Respiratory Culture - Final Mixed normal respiratory eulalia. No Streptococcus pneumoniae, beta-hemolytic Streptococcus or Staphylococcus aureus isolated. 01/27/21 21:40 Urine Catheter - Catheter Urine Culture - Final Culture exhibits no growth. 01/27/21 19:30 Mucosa - Nose Respiratory Panel (PCR) - Final 01/27/21 19:25 Urine Catheter - Catheter Legionella Antigen - Final 01/27/21 19:25 Urine Catheter - Catheter Streptococcus pneumoniae Antigen (M - Final Radiography Diagnostic Testing: Radiology Impression Chest CT 02/21/21 08:50 IMPRESSION: Dense right middle lobe and right lower lobe pneumonia or atelectasis with a moderate sized organized right-sided hydropneumothorax with multiple loculations containing gas including a 7 cm loculation anteriorly with an air-fluid level worrisome for empyema with a thoracostomy tube. Electronically Signed: Everett Cee MD at 9:42 EDT Tel , Service support , Physical Exam Narrative General: Alert, Oriented x3, Cooperative HEENT: Atraumatic, PERRLA, EOMI, Normocephalic Oral: No Gingival or Mucosal Lesions/ Ulcerations Neck: Supple, No JVD, Negative Carotid Bruits Lungs: Air entry diminished more on right lung. Right chest tube present. No air leak. Cardiovascular: Regular rate, Regular Rhythm, Normal S1, Normal S2, No murmurs Abdomen: Bowel Sounds sluggish. Colostomy shows serous drainage. No tenderness or distention. : No renal angle tenderness. No suprapubic tenderness. Extremities: No edema, Capillary Refill Less than 3 Seconds Skin: No rashes, No breakdown Musculoskeletal: No Tenderness to Palpation of Joints or Extremities Neurological: Cranial nerves II-XII grossly intact, DTR 2+/4 Psych/Mental Status: Flat affect Assessment & Plan Assessment/Plan (1) Acute respiratory failure with hypoxia: PLAN: 1. Acute hypoxic respiratory failure/tension pneumothorax ?Secondary to SARS-CoV-2 pneumonia. Patient admitted to the intensive care unit placed on ventilator. Patient was outside the window for remdesivir. Was started on Decadron. Did receive a dose of Tocilizumab. Patient had tension pneumothorax and chest tube was placed on 02/15. Patient was extubated on 02/16. No obvious air leak. Chest x-ray reviewed, more lung opacity on the right side than left side. Possible loculated pleural air or parenchymal cavitation right lung base. Seen by surgeon and plan for waterseal tomorrow 02/20: Discussed with director of software engineering and surgeon. Surgeon's concern about right lung opacity on chest x-ray and discussed with director of software engineering regarding indication of CT chest. Patient still gets very short of breath on mild exercise. No high-grade fever. 02/21: No fever. Mild tachycardia. Leukocytosis. CT chest shows dense right middle lobe and right lower lobe consolidation with atelectasis, multiple loculated containing gas including 7 cm anterior loculation worrisome for empyema. Moderate sized organized right-sided hydropneumothorax. Surgeon recommended transfer to tertiary care for evaluation by thoracic surgeon for VATS. Discussed the case with thoracic surgeon at 2 different hospital and both feel he is not a good candidate for VATS. The recommended drainage of anterior collection with percutaneous drain to see whether it is bronchopleural fistula with air leak or hemicolectomy with pigtail drain. Dr. Batista ordered percutaneous drainage and repeat CT in 1 to 2 days. He is high risk for surgery. I also called [facility] and the reconciliation coordinator asked to fax CT chest and progress note and H&P and same informed to corporate secretary for needful. 2. Severe sepsis ?Secondary to SARS-CoV-2 pneumonia with superimposed bacterial pneumonia (MSSA pneumonia) as well as perforated cecum. Patient did receive IV fluid resuscitation and subsequently started on broad-spectrum antibiotic therapy with Zosyn and vancomycin with consultation placed to ID. Patient had prolonged antibiotic. Discussed with ID. IV Zosyn was discontinued. 3. Perforated cecum with very dilated ascending and transverse colon ?Patient underwent exploratory laparotomy with extended right hemicolectomy on 02/04/[address] Wood. On clear liquid diet 4. Hyperglycemia ?Secondary to chronic steroid use Patient is currently on long-acting insulin in addition to sliding scale coverage 5. Essential hypertension ?Blood pressure 122/77 6. Dyslipidemia ?On statin therapy prior to admission 7. Anxiety -Recently started on BuSpar which has seemed to help we will continue DVT: Lovenox Total time of the visit including total time spent in counseling or coordination of care, (more than 50% of the total time, spent in obtaining medical information from nurses and other ancillary care providers,explaining to the patient about labs, imaging, diagnosis and management), discussion with director of software engineering and surgeon and ID, review of labs and imaging is 30 minutes. Charges/Coding Visit Charges Inpatient E&M: 13511 Subs Hosp L3
--- NOTE | 2021-02-21 13:46 | PCM.PN.BLA ---
Progress Note CT of the chest with an air-fluid collection anteriorly which may be an empyema versus hydropneumothorax that is undrained. I discussed this case with 2 thoracic surgeons at different hospitals and they both agree that he would not be a good candidate for VATS. They recommended drainage of this anterior collection with percutaneous drain to see if there is a bronchopleural fistula with air leak or if this will may be collapsed with the pigtail drain. I will order percutaneous drainage of this anterior air-fluid collection and plan for repeat CT in 1 to 2 days. If there is an air leak from this pigtail drain that he may have a bronchopleural fistula need transfer. Both thoracic surgeons agree that a transfer would not be necessary as surgery would be too high risk for this patient. Jesús oWod MD Pager: [facility] [address] [place] [address], [address] [place] [address] Office:
--- NOTE | 2021-02-21 14:40 | CT_ITS ---
PROCEDURE: CT DIRECTED ABSCESS DRAINAGE, right anterior chest. DATE OF EXAMINATION: 02/21/2021. INDICATION: Male, 55 years old. Loculated air-fluid collection in the anterior right upper lobe. PHYSICIAN: Simón Saha M.D. CONSENT: Written informed consent was obtained having explained the risks, benefits and alternatives in detail with the patient who accepted the risks and agreed to proceed. Laboratory review and clinical assessment was performed. CONSCIOUS SEDATION PROTOCOL: The Drugs used were: 1 mg Versed, IV., and 25 mcg Fentanyl, IV. The sedation time was: 8 minutes. Conscious sedation was started at 3:07 PM and terminated at 3:15 PM. The conscious sedation protocol was independently monitored. RADIATION DOSAGE (If Supplied By Facility): CTDIvol = ( 24.6 ) mGy, DLP = ( 1234.83 ) mGycm TECHNIQUE: CT sections were made through the upper chest revealing an abscess in the right upper lobe. The skin surface was prepped and draped in a sterile fashion. Puncture of this collection was performed with a 8.5 Palauan catheter fluid and air was aspirated. Drainage catheter was then inserted into the collection and formed into position. Additional air and fluid was aspirated for a total of approximately 6 cc of lake-colored fluid. The catheter was sutured into position to allow for continued drainage. Followup CT sections reveals good position of the catheter. CT/CT Guidance Abscess Drg w/Cath IMPRESSION: 1. CT directed drainage of a fluid collection using CT image guidance and image documentation as described. 2. Conscious Sedation protocol utilized with independent monitoring Electronically Signed: Simón Saha MD at 15:40 EDT , Service support ,
--- NOTE | 2021-02-21 14:40 | NURSING ---
PT FROM PCU FOR DRAINAGE OF LUNG ABSCESS. REPORT FROM Chuy CAHVEZ RN BEFORE ARRIVAL. PT A & O X3. DUE TO VOICE HOARSENESS, CONVERSING JUST BY NODDING HEAD. RT CHEST TUBE RE-ATTACHED TO SUCTION ON ARRIVAL LUNG SOUNDS, POSTERIOR, RT DIMINISHED THROUGHOUT LATERALLY; LT SIDE CLEAR LATERALLY. PT INFORMED OF PLAN OF CARE FOR ABSCESS DRAINAGE. NODS TO UNDERSTANDING. .
[2021-02-21] MEDS: Midazolam 2 MG/2 ML Syringe IV (15:07)
[2021-02-21] MEDS: fentaNYL 100 MCG/2 ML Ampul IV (15:08)
[2021-02-21] MEDS: Lidocaine 2% (20 ml mdv) 20 ML Vial INFILT (15:09)
--- NOTE | 2021-02-21 15:22 | PCM.DC.SUM ---
Providers Date of Admission: 01/27/21 Primary Care Physician: Dr. Doroteo Camacho MD Consultations 01/27/21 20:30 Consult: Infectious Disease Routine Consulting Provider: Gareth Alcantara Reason for Consult: COVID PNA, resp failure, intubated, consider barcitinib. EMERGENT Consult: No Notified: Yes Date Notified: 01/27/21 Time Notified: 18:37 Method of Notification: cortext Consult: Hybrid Powertrain Development Engineer / Pulmonary Medicine Routine Consulting Provider: Gualberto Camacho Reason for Consult: COVID PNA, resp failure, intubated. EMERGENT Consult: No Notified: Yes Date Notified: 01/27/21 Time Notified: 18:39 Method of Notification: cortext 02/04/21 10:27 Consult: General Surgery Routine Consulting Provider: Jesús Wood Reason for Consult: ILEUS EMERGENT Consult: No Notified: Yes Date Notified: 02/04/21 Time Notified: 10:27 Method of Notification: Verbal 02/12/21 12:57 Consult: Onc/Wound/utility supervisor boat and plant Routine Comment: Reason for Consult:: new stoma, mucous fistula, wound packed 02/21/21 11:06 Consult: ENT Routine Consulting Provider: Joseph Carl Reason for Consult: Speech recommendation, no verbal speech s/p extubation 02/16 EMERGENT Consult: No Notified: Yes Date Notified: 02/21/21 Time Notified: 12:55 Method of Notification: Verbal Reason For Visit: ACUTE RESP FAILURE, COVID PNA Diagnosis Discharge Diagnosis (1) Acute respiratory failure with hypoxia: Status: Acute Code(s): J96.01 - Acute respiratory failure with hypoxia Medications at Discharge Home Medications aspirin [Aspir-Low] 81 mg PO DAILY 01/27/21 atorvastatin 40 mg PO DAILY 01/27/21 lisinopril 10 mg PO DAILY 01/27/21 Hospital Course Summary of Care Provided Hospital Course: This is 55-year-old gentleman with history of hypertension and dyslipidemia was admitted on 01/27 with progressive worsening of Covid symptoms fever, chills, significant diarrhea, vomiting and abdominal cramps cough and shortness of breath and headache 12 days prior to admission. He had complicated course in ICU and floor and was intubated on ventilator. Currently patient is in PCU. 1. Acute hypoxic respiratory failure/tension pneumothorax, secondary to SARS-CoV-2 pneumonia. Patient was admitted to the intensive care unit placed on ventilator. Patient was outside the window for remdesivir. Was started on Decadron. Did receive a dose of Tocilizumab. Patient had tension pneumothorax and chest tube was placed on 02/15. Patient was extubated on 02/16. No obvious air leak. Chest x-ray reviewed, more lung opacity on the right side than left side. Possible loculated pleural air or parenchymal cavitation right lung base. Patient also evaluated by ENT, Dr. Koffi Carl for weakness of voice and found vocal cord adduction is weaker than abduction but no granuloma or cord mucosal abnormality found. Patient was not ventilator for long time and also had to intubations for surgery for perforated cecum. CT chest shows dense right middle lobe and right lower lobe consolidation with atelectasis, multiple loculated containing gas including 7 cm anterior loculation worrisome for empyema. Moderate sized organized right-sided hydropneumothorax. Patient had CT-guided 8.5 Greenlandic catheter pigtail catheter in the right upper lobe abscess cavity. 6 mL of air and fluid was aspirated. I talked to surgeon Dr. Barajas and Dr. Camacho in agreement on transferring the patient to [facility] for evaluation of thoracic surgeon as patient CT chest shows multiple loculated air-fluid cavity with largest one has pigtail catheter. Patient is still tachycardic, leukocytosis and needs further treatment for possibility of empyema. General transfer line was called and I talked to hospitalist, Dr Lorenzana there and patient is accepted. Patient is aspirated when the knee. Surgeon recommended transfer to tertiary care for evaluation by thoracic surgeon for VATS. Discussed the case with thoracic surgeon at 2 different hospital and both feel he is not a good candidate for VATS. The recommended drainage of anterior collection with percutaneous drain to see whether it is bronchopleural fistula with air leak or hemicolectomy with pigtail drain. Dr. Batista ordered percutaneous drainage and repeat CT in 1 to 2 days. He is high risk for surgery. I also called [facility] and the parts coordinator asked to fax CT chest and progress note and H&P and same informed to dental secretary for needful. No fever but mild tachycardia and leukocytosis. 2. Severe sepsis ?Secondary to SARS-CoV-2 pneumonia with superimposed bacterial pneumonia (MSSA pneumonia) as well as perforated cecum. Patient did receive IV fluid resuscitation and subsequently started on broad-spectrum antibiotic therapy with Zosyn and vancomycin with consultation placed to ID. Patient had prolonged antibiotic. Discussed with ID. IV Zosyn was discontinued. 3. Perforated cecum with very dilated ascending and transverse colon ?Patient underwent exploratory laparotomy with extended right hemicolectomy on 02/04/[address] Wood. Patient had anastomotic leak and had redo surgery with colostomy. Continue wet-to-dry dressing over the midline incision. 4. Hyperglycemia ?Secondary to chronic steroid use Patient is currently on long-acting insulin in addition to sliding scale coverage 5. Essential hypertension ?Blood pressure 122/77 6. Dyslipidemia ?On statin therapy prior to admission 7. Anxiety -Recently started on BuSpar which has seemed to help we will continue DVT: Lovenox Total time of the visit including total time spent in counseling or coordination of care, (more than 50% of the total time, spent in obtaining medical information from nurses and other ancillary care providers,explaining to the patient about labs, imaging, diagnosis and management), discussion with cake wringer and surgeon and ID, discussion with parts coordinator and hospitalist General review of labs and imaging is 35 minutes. Physical Exam Narrative General: Alert, Oriented x3, Cooperative HEENT: Atraumatic, PERRLA, EOMI, Normocephalic Oral: No Gingival or Mucosal Lesions/ Ulcerations Neck: Supple, No JVD, Negative Carotid Bruits Lungs: Air entry diminished more on right lung. Right chest tube present. No air leak. Cardiovascular: Regular rate, Regular Rhythm, Normal S1, Normal S2, No murmurs Abdomen: Bowel Sounds sluggish. Colostomy shows serous drainage. No tenderness or distention. : No renal angle tenderness. No suprapubic tenderness. Extremities: No edema, Capillary Refill Less than 3 Seconds Skin: No rashes, No breakdown Musculoskeletal: No Tenderness to Palpation of Joints or Extremities Neurological: Cranial nerves II-XII grossly intact, DTR 2+/4 Psych/Mental Status: Flat affect Medical Records Data Medical Nutrition Assessment Dietitian: Malnutrition Criteria Met Start: 02/15/21 12:47 Freq: Status: Active Protocol: Document 02/17/21 10:04 AG (Rec: 02/17/21 10:04 AG [id number]) Nutrition Malnutrition Evidence of Malnutrition Exists Yes Malnutrition (severe): Acute Illness/Injury Evidenced By Suboptimal Energy Intake ( Severe),Weight Loss (Severe) Intake Problem Inadequate Enteral Nutrition Infusion Etiology - Signs/Symptoms - Status Active Problem Inadequate Oral Intake Etiology related to GI dysfunction, mechanical intubation Signs/Symptoms as evidenced by no nutritional intake > 7 days Status Resolved Problem Clinical Problem Biting/Chewing Difficulty Etiology and swallowing difficulties r/ t prolonged mechanical intubation Signs/Symptoms as evidenced by need for consistency texture/ modifications per TYPE COPY EXAMINER Status Active Problem Acute Disease or Injury Related Malnutrition Etiology severe acute malnutrition r/t inadequate energy intake d.t resp. failure d/t COVID-19, bowel perforation Signs/Symptoms as evidenced by estimated PO intake meeting <50% of estimated nutritional needs >5 days; unintentional wt loss of 30.1#/14.3% <1 month Status Active Problem Recommendation Dietitian Recommendations/Changes Recommend advance diet as tolerated to transitional, consistency per TYPE COPY EXAMINER. Recommend ensure pudding or magic cup w/ meals when diet advanced past clear liquids. Continue daily wts. Weight / BMI Weight Weight: 180 lb 1.883 oz Body Mass Index (BMI) 27.1 ABG / Lab / Microbiology Data Result Diagrams: 02/22/21 06:48 02/22/21 06:48 Laboratory: Laboratory Results - last 24 hr 02/20/21 16:26: POC Glucose 120 H 02/20/21 23:07: POC Glucose 123 H 02/21/21 05:41: POC Glucose 119 H 02/21/21 11:31: POC Glucose 120 H Microbiology: Microbiology 02/13/21 06:00 Sputum, Induced/Lukens Gram Stain - Final 02/13/21 06:00 Sputum, Induced/Lukens Respiratory Culture - Final Staphylococcus aureus 02/07/21 18:00 Stool Stool Occult Blood (MATILDA) - Final Occult Blood Positive 02/05/21 09:31 Sputum, Induced/Lukens Gram Stain - Final 02/05/21 09:31 Sputum, Induced/Lukens Respiratory Culture - Final Staphylococcus aureus 02/01/21 11:25 Blood Culture (Wb) - Central Line Blood Culture - Final No growth in 5 days. 02/01/21 11:45 Blood Culture (Wb) - Left Wrist Blood Culture - Final No growth in 5 days. 02/01/21 11:30 Sputum, Induced/Lukens Gram Stain - Final 02/01/21 11:30 Sputum, Induced/Lukens Respiratory Culture - Final Staphylococcus aureus 01/27/21 18:30 Blood Culture (Wb) - Anticubital Left Blood Culture - Final No growth in 5 days. 01/27/21 18:33 Blood Culture (Wb) - Central Line Blood Culture - Final No growth in 5 days. 01/30/21 13:20 Stool C. difficile DNA Amplification - Final 01/28/21 08:20 Sputum, Induced/Lukens Gram Stain - Final 01/28/21 08:20 Sputum, Induced/Lukens Respiratory Culture - Final Mixed normal respiratory eulalia. No Streptococcus pneumoniae, beta-hemolytic Streptococcus or Staphylococcus aureus isolated. 01/27/21 21:40 Urine Catheter - Catheter Urine Culture - Final Culture exhibits no growth. 01/27/21 19:30 Mucosa - Nose Respiratory Panel (PCR) - Final 01/27/21 19:25 Urine Catheter - Catheter Legionella Antigen - Final 01/27/21 19:25 Urine Catheter - Catheter Streptococcus pneumoniae Antigen (M - Final Radiography Diagnostic Testing: Radiology Impression Chest CT 02/21/21 08:50 IMPRESSION: Dense right middle lobe and right lower lobe pneumonia or atelectasis with a moderate sized organized right-sided hydropneumothorax with multiple loculations containing gas including a 7 cm loculation anteriorly with an air-fluid level worrisome for empyema with a thoracostomy tube. Electronically Signed: Everett Cee MD at 9:42 EDT Tel , Service support , Meaningful Use Info Meaningful Use Diagnoses (Choose all that apply): None applicable Discharge Plan Admission Admit Date/Time: 01/27/21 18:35 Attending Provider: Keven Martinez Primary Care Provider: Doroteo Camacho Consulting Providers: Jesús Wood ; Gareth Alcantara ; Gualberto Camacho ; Joseph Carl Instructions Additional Instructions / Restrictions: Patient Problems: Altered Health Status related to Hospitalization Patient Goals: *Optimal Level of Health *Keep Appointments *Medication Compliance *Remain Safe Discharge Orders/Prescriptions Prescriptions: No Action atorvastatin 40 mg tablet 40 mg PO DAILY RF: 0 lisinopril 10 mg tablet 10 mg PO DAILY RF: 0 aspirin [Aspir-Low] 81 mg Tablet,Delayed Release (Dr/Ec) 81 mg PO DAILY RF: 0 Referrals / Follow Up: Doroteo Camacho MD [Primary Care Provider] - Care Physician,No Primary [NON-STAFF] - Disposition Discharge Orders: Discharge Patient (Routine); Ordered 02/21/21 Ordered By: Dr. Keven Martinez Charges/Coding Visit Charges Inpatient E&M: 43468 Disch Hosp
--- NOTE | 2021-02-21 16:52 | NURSING ---
Pt has been coughing up large amounts of phlegm. pulse ox was 88% on 4L. O2 increased to 5L and pulse ox is now up to 93%. present at bedside. AMIRA Brady aware of vital signs and currently in the room with the patient.
[2021-02-21] MEDS: Cefazolin 2 GM in 0.9% Normal Saline 100 ML IV ×2 (17:16→22:34)
--- NOTE | 2021-02-21 17:54 | PCM.PN.BLA ---
Progress Note Asked to see the patient at the request of Dr. Ogden for hoarseness The patient is a 55-year-old white male who was intubated on 01/27/2021 for acute respiratory failure. This day was the 12th day of his Covid infection. He was eventually extubated on 02/06/2021. He then subsequently had 2 more surgeries that required intubation. A few days ago the reports that his voice was stronger than it is now. Speech therapy had recommended an ENT evaluation. Past medical history: Pneumothorax, empyema, perforated bowel, Allergies: No known drug allergies Medications: Lipitor lisinopril aspirin Tylenol albuterol alprazolam BuSpar bar cefazolin enoxaparin fentanyl glucagon guaifenesin insulin loperamide Motrin melatonin midazolam naloxone ondansetron oxycodone pantoprazole zinc sulfate Physical exam The patient is awake alert in no acute distress. He is mildly tachypneic. Scalp and skull are normal Pupils equal round reactive to light Nasal exam reveals crusting bilaterally. A nasal cannula is in place. Mouth oropharynx reveals no masses or lesions. Neck is supple no adenopathy or subcutaneous air Flexible laryngoscopy: 4% topical lidocaine was. The patient's left nasal cavity. After sufficient anesthesia, a flexible scope inserted patient's nose into the nasopharynx. The nasopharynx base of tongue epiglottis and vallecula are within normal limits. There is bilateral vocal cord motion. His abduction is much stronger than his abduction. In fact, he has incomplete closure with complete adduction. The true vocal cord mucosa is normal. I do not appreciate any vocal cord granulomas. Piriform sinuses are normal Assessment: Hoarseness Bilateral vocal cord weakness secondary to intubation Plan: The patient should proceed with speech and swallowing therapy. I anticipate his vocal cord function/voice to improve as he gains strength.
[2021-02-21] MEDS: Potassium Chloride 10mEq/100mL 10 MEQ/100 ML IV.SOLN. 100 MEQ IV BOLUS ×3 (17:56→22:34)
[2021-02-21] MEDS: 0.9% Saline Lock 10 ML Syringe IV (17:58)
[2021-02-21] MEDS: ALPRAZolam 0.25 MG Tablet PO (18:22)
[2021-02-21] MEDS: guaiFENesin 10 ML UDC (200MG/10ML) PO (18:22)
[2021-02-21 18:31] LABS: Bedside Glucose 126 mg/dL (70-110)
[2021-02-21] MEDS: MELATONIN 3 MG TABLET PO (22:39)
[2021-02-21 23:11] LABS: Bedside Glucose 114 mg/dL (70-110)
--- NOTE | 2021-02-21 23:39 | NURSING ---
Tried to call ( Carmella) to give update about pt delay in transfer to [facility], no one answered phone. Left a voicemail.
[2021-02-22] VITALS (12 sets, daily range): BP systolic 135–144; BP diastolic 79–93; PULSE 108–114; RESP 20–28; TEMP 36.4–37.1; O2SAT 90–98
[2021-02-22] MEDS: Potassium Chloride 10mEq/100mL 10 MEQ/100 ML IV.SOLN. 100 MEQ IV BOLUS (00:15)
[2021-02-22 00:40] LABS: Bedside Glucose 116 mg/dL (70-110)
--- NOTE | 2021-02-22 02:15 | PN.HOSP_ITS ---
Hospitalist Note Notified by RN that pt had been declined admission by Dr. Lorenzana at [facility], stating that the parties at [facility] need to come to a concensus.
--- NOTE | 2021-02-22 02:15 | PCM.HOSP.N ---
Hospitalist Note Notified by RN that pt had been declined admission by Dr. Lorenzana at [facility], stating that the parties at [facility] need to come to a concensus.
[2021-02-22] MEDS: ALPRAZolam 0.25 MG Tablet PO ×3 (02:27→18:14)
--- NOTE | 2021-02-22 02:52 | NURSING ---
02/21 2100: [facility] transfer line called PCU d/t needing clarity regarding the reason for transfer. This RN spoke w/ Dr. Wood and Dr. Gerard regarding transfer. Ultimately [facility] hospitalist declined the transfer d/t wanting all parties to agree on transfer. Transfer is currently on hold; plan for [facility] surgeon and hospitalist as well as [facility] hospitalist to re-discuss in AM. Dr. Wood and Dr. Gerard both aware of pt staying here overnight. Pt and pt's made aware as well.
[2021-02-22] MEDS: oxyCODONE 5 MG Tablet PO (03:24)
[2021-02-22] MEDS: Cefazolin 2 GM in 0.9% Normal Saline 100 ML IV ×2 (06:20→15:14)
[2021-02-22] MEDS: Menthol/Lanolin/Calamine/Znox 113 GM Tube 1 APPLIC TOPICAL ×2 (06:20→15:20)
--- NOTE | 2021-02-22 06:40 | MDS.RN ---
Spoke with pt's Carmella, gave update about pt current status and the delay in pt transfer. Carmella will be in today.
[2021-02-22 06:58] LABS: Absolute Lymphocyte Count 1.19 X10^3/uL (0.83-4.51); Absolute Neutrophil Count 12.5 X10^3/uL (2.0-7.7); Basophil# 0.04 X10^3/uL; Basophil% 0.3 % (0-1); Eosinophil# 0.22 X10^3/uL; Eosinophils% 1.4 % (0-5); Hematocrit 31.7 % (40-54); Hemoglobin 10.3 g/dL (13.0-16.5); Lymphocyte # 1.19 X10^3/ul (0.83-4.51); Lymphocyte % 7.8 % (19-41); Mean Corp Hgb Conc 32.5 g/dL (32-36); Mean Corpuscular Hgb 32.4 pg (27.0-32.0); Mean Corpuscular Volume 99.7 fL (80-94); Mean Platelet Vol. 10.2 fl (6.2-12.0); Monocyte# 1.07 X10^3/uL; NRBC Flagged by Analyzer 0 % (0-5); Neutrophil # 12.47 X10^3/uL (2.7-7.7); Neutrophil % 82.1 % (47-70); Platelet Count 330 K/mm3 (150-450); RBC Distribution Width CV 13.3 % (11.6-14.6); RBC Distribution Width SD 49.2 fl (35.1-43.9); Red Blood Count 3.18 M/mm3 (4.6-6.2); White Blood Count 15.2 K/mm3 (4.4-11.0)
[2021-02-22 07:01] LABS: Bedside Glucose 117 mg/dL (70-110)
[2021-02-22 07:11] LABS: Anion Gap 7 (5-15); BUN 6 mg/dL (7-18); BUN/Creat Ratio 12.7 RATIO (10-20); Calcium,Total 8.4 mg/dL (8.5-10.1); Chloride 105 mmol/L (98-107); Creatinine, Serum 0.47 mg/dL (0.70-1.30); EST Glomerular Filtration Rate 196 mL/min (>60); Est Glom Filt Rate - Afr Amer 237 mL/min (>60); Estimated Creatinine Clearance 187.68 ml/min; Glucose 115 mg/dL (74-106); Potassium 3.4 mmol/L (3.5-5.1); Sodium Level 140 mmol/L (136-145)
[2021-02-22] MEDS: busPIRone 5 MG Tablet 10 MG PO (10:07)
[2021-02-22] MEDS: Enoxaparin 30 MG/0.3 ML Syringe SC (10:08)
[2021-02-22] MEDS: Pantoprazole Sodium 40 MG Tablet PO (10:09)
[2021-02-22] MEDS: Ascorbic Acid 500 MG Tablet 1000 MG PO (10:09)
--- NOTE | 2021-02-22 11:07 | CHAPLAIN ---
Type of Pastoral Visit ___ Initial Visit _x__ Follow-up Visit ___ On-call Visit ___ General Patient Visit ___ Spiritual Assessment ___ Family Conference ___ Bereavement ___ Rapid Response ___ Code Blue ___ Other (describe below) Pastoral Care Referral From _x__ Patient _x__ Family ___ Nurse ___ Physician ___ Elevator Inspector ___ Member Of Parliament ___ Other (describe below) Sacrament/Intervention _x__ Active listening ___ Anointing ___ Confucianism ___ Bereavement ___ Communion ___ Lisha exploration ___ ___ Life review _x__ Prayer ___ Reconciliation ___ Sacrament of Sick _x__ Supportive presence ___ Wedding ___ Other (describe below) Pastoral Comments offer of ongoing support given to patient and his spouse; spouse is the spokesperson as pt has difficulty speaking at this point; yet pt is able to give quiet verbalization, nod, and thumbs up signs to indicate that he is doing some better, is ok with being transferred, and 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
[2021-02-22 11:31] LABS: Bedside Glucose 99 mg/dL (70-110)
--- NOTE | 2021-02-22 13:34 | PCM.PN.INT ---
Assessment & Plan Assessment/Plan (1) Acute respiratory failure with hypoxia: (2) Pneumonia due to COVID-19 virus: PLAN: RECOMMENDATIONS: 1. Continue to wean supplemental oxygen to maintain saturations at or above 90%. 2. Chest tube management per surgery recommendations. 3. Antimicrobials per ID recommendations. 4. Encourage incentive spirometer use and mobilize patient as tolerated. 5. Tentative plans for transfer to a [facility] due to hydropneumothorax. 6. Will sign off from a critical care perspective. Please call with any additional questions. IMPRESSIONS: 1. Acute hypoxemic respiratory failure secondary to COVID-19 pneumonia/tension pneumothorax The patient presented to the hospital with progressive Covid symptoms after having been initially diagnosed at the end of December. He was therefore outside of the window for remdesivir. CTA chest showed no evidence for pulmonary embolism. The patient was emergently intubated in the emergency department. The patient has completed his treatment courses for his Covid. He remains on antimicrobials for the MSSA isolated from his sputum. The patient improved from a respiratory perspective and was able to be extubated on February 16. The patient's time spent on the ventilator was complicated by the development of a tension pneumothorax, which did require tube thoracotomy. Repeat CT chest did reveal evidence of hydropneumothorax with areas of loculation. There are tentative plans for the patient to be transferred to a tertiary care facility for thoracic surgery evaluation. 2. Bowel perforation s/p exploratory laparotomy with right hemicolectomy for ischemic complicated by evisceration with anastomotic leak The patient was taken back to surgery on 02/12/2021 secondary to evisceration with anastomotic leak and subsequent septic shock. We will continue with volume optimization and antibiotics. The patient remains on Zosyn therapy. This should provide significant coverage, but will need to extend stop date beyond previous target to 10 days post surgery. 3. Obesity/hypertension/hyperlipidemia Complicates care, management, recovery and prognosis. Continue home medications as indicated. This note was generated with [employer] dictation software. It may contain incorrect words, spelling, and punctuation that were not noted in checking the note before signing. Subjective Subjective The patient was seen and examined at the bedside this morning. Events from the last 24 hours have been reviewed. The patient is currently afebrile, hemodynamically stable and maintaining appropriate oxygen saturations on 5 L/min via nasal cannula. CT chest completed yesterday did reveal evidence of a moderate-sized hydropneumothorax with multiple loculations in the right hemithorax. The patient's chest tube remains in place. In follow-up, the patient underwent a CT-guided catheter placement into the anterior right upper lobe loculated fluid collection. In addition, the hospitalist has been in conversation with thoracic surgery at [facility]. Per the patient and his , he is apparently being transferred for evaluation by thoracic surgery. Objective Data Objective Data The patient's most recent lab work, culture data and imaging studies have all been personally reviewed. Sputum culture dated February 13 was positive for MSSA. Vital Signs: Vital Signs Temp Pulse Resp BP Pulse Ox 98.0 F 112 H 20 H 137/79 H 96 02/22/21 11:00 02/22/21 11:00 02/22/21 11:00 02/22/21 11:00 02/22/21 11:00 Oxygen Flow Rate (L/min) [2] 4 Oxygen Flow Rate (L/min) [1 ( 4 Initial Baseline)] Oxygen Flow Rate (L/min) 5 Oxygen Delivery Method [2] Nasal Cannula Oxygen Delivery Method [1 ( Nasal Cannula Initial Baseline)] Oxygen Delivery Method Nasal Cannula Weight: 83.2 kg Body Mass Index (BMI) 27.1 Intake & Output: Intake and Output for Last 24 Hours 02/20/21 02/21/21 02/22/21 23:59 23:59 23:59 Intake Total 1080 / 1080 930 / 930 1310 / 1310 Output Total 2130 / 2130 1480 / 1480 1155 / 1155 Balance -1050 / -1050 -550 / -550 155 / 155 Medical Nutrition Assessment Dietitian: Malnutrition Criteria Met Start: 02/15/21 12:47 Freq: Status: Active Protocol: Document 02/17/21 10:04 (Rec: 02/17/21 10:04 [id number]) Nutrition Malnutrition Evidence of Malnutrition Exists Yes Malnutrition (severe): Acute Illness/Injury Evidenced By Suboptimal Energy Intake ( Severe),Weight Loss (Severe) Intake Problem Inadequate Enteral Nutrition Infusion Etiology - Signs/Symptoms - Status Active Problem Inadequate Oral Intake Etiology related to GI dysfunction, mechanical intubation Signs/Symptoms as evidenced by no nutritional intake > 7 days Status Resolved Problem Clinical Problem Biting/Chewing Difficulty Etiology and swallowing difficulties r/ t prolonged mechanical intubation Signs/Symptoms as evidenced by need for consistency texture/ modifications per APPLICATION PROCESSOR Status Active Problem Acute Disease or Injury Related Malnutrition Etiology severe acute malnutrition r/t inadequate energy intake d.t resp. failure d/t COVID-19, bowel perforation Signs/Symptoms as evidenced by estimated PO intake meeting <50% of estimated nutritional needs >5 days; unintentional wt loss of 30.1#/14.3% <1 month Status Active Problem Recommendation Dietitian Recommendations/Changes Recommend advance diet as tolerated to transitional, consistency per APPLICATION PROCESSOR. Recommend ensure pudding or magic cup w/ meals when diet advanced past clear liquids. Continue daily wts. Lab / Micro Data Attestation: I reviewed the patient's lab results. Result Diagrams: 02/22/21 06:48 02/22/21 06:48 Labs: Laboratory Results - last 24 hr 02/21/21 18:27: POC Glucose 126 H 02/21/21 22:30: POC Glucose 114 H 02/22/21 00:20: POC Glucose 116 H 02/22/21 06:15: POC Glucose 117 H 02/22/21 06:48: WBC 15.2 H, RBC 3.18 L, Hgb 10.3 L, Hct 31.7 L, MCV 99.7 H, MCH 32.4 H, MCHC 32.5, RDW Std Deviation 49.2 H, RDW Coeff of Balnca 13.3, Plt Count 330, MPV 10.2, Immature Gran % (Auto) 1.400 H, Neut % (Auto) 82.1 H, Lymph % (Auto) 7.8 L, Hodgeman % (Auto) 7.0, Eos % (Auto) 1.4, Baso % (Auto) 0.3, Absolute Neuts (auto) 12.5 H, Absolute Lymphs (auto) 1.19, Nucleated RBC % 0 02/22/21 06:48: Sodium 140, Potassium 3.4 L, Chloride 105, Carbon Dioxide 28.0, Anion Gap 7, BUN 6 L, Creatinine 0.47 L, Estim Creat Clear Calc 187.68, Est GFR (MDRD) Af Amer 237, Est GFR (MDRD) Non-Af 196, BUN/Creatinine Ratio 12.7, Glucose 115 H, Calcium 8.4 L 02/22/21 11:10: POC Glucose 99 Micro: Microbiology 02/13/21 06:00 Sputum, Induced/Lukens Gram Stain - Final 02/13/21 06:00 Sputum, Induced/Lukens Respiratory Culture - Final Staphylococcus aureus 02/07/21 18:00 Stool Stool Occult Blood (MATILDA) - Final Occult Blood Positive 02/05/21 09:31 Sputum, Induced/Lukens Gram Stain - Final 02/05/21 09:31 Sputum, Induced/Lukens Respiratory Culture - Final Staphylococcus aureus 02/01/21 11:25 Blood Culture (Wb) - Central Line Blood Culture - Final No growth in 5 days. 02/01/21 11:45 Blood Culture (Wb) - Left Wrist Blood Culture - Final No growth in 5 days. 02/01/21 11:30 Sputum, Induced/Lukens Gram Stain - Final 02/01/21 11:30 Sputum, Induced/Lukens Respiratory Culture - Final Staphylococcus aureus 01/27/21 18:30 Blood Culture (Wb) - Anticubital Left Blood Culture - Final No growth in 5 days. 01/27/21 18:33 Blood Culture (Wb) - Central Line Blood Culture - Final No growth in 5 days. 01/30/21 13:20 Stool C. difficile DNA Amplification - Final 01/28/21 08:20 Sputum, Induced/Lukens Gram Stain - Final 01/28/21 08:20 Sputum, Induced/Lukens Respiratory Culture - Final Mixed normal respiratory eulalia. No Streptococcus pneumoniae, beta-hemolytic Streptococcus or Staphylococcus aureus isolated. 01/27/21 21:40 Urine Catheter - Catheter Urine Culture - Final Culture exhibits no growth. 01/27/21 19:30 Mucosa - Nose Respiratory Panel (PCR) - Final 01/27/21 19:25 Urine Catheter - Catheter Legionella Antigen - Final 01/27/21 19:25 Urine Catheter - Catheter Streptococcus pneumoniae Antigen (M - Final Radiography Diagnostic Testing: Radiology Impression Abscess Drainage CT 02/21/21 14:40 IMPRESSION: 1. CT directed drainage of a fluid collection using CT image guidance and image documentation as described. 2. Conscious Sedation protocol utilized with independent monitoring Electronically Signed: Simón Saha MD at 15:40 EDT , Service support , Physical Exam Const alert and no apparent distress General Appearance: cooperative HEENT normocephalic and head/scalp atraumatic Eyes PERRL, EOMs intact bilaterally and conjunctivae normal Neck supple General: trachea midline Chest Chest Narrative: Small bore drainage catheter in place. Chest: chest tube Resp Auscultation: diminished lung sounds Cardio regular rate and regular rhythm GI normal to inspection, nondistended, normoactive bowel sounds Extremity no clubbing, cyanosis or edema Skin no rashes or lesions noted Neuro CN's II-XII intact bilaterally and no focal motor deficits Psych Mood & Affect: flat affect Charges/Coding Visit Charges Inpatient E&M: 16887 Subs Hosp L2
--- NOTE | 2021-02-22 14:37 | PN.HOSP_ITS ---
Objective Data Objective Data Vital Signs: Vital Signs Temp Pulse Resp BP Pulse Ox 98.0 F 112 H 20 H 137/79 H 96 02/22/21 11:00 02/22/21 11:00 02/22/21 11:00 02/22/21 11:00 02/22/21 11:00 Oxygen Flow Rate (L/min) [2] 4 Oxygen Flow Rate (L/min) [1 ( 4 Initial Baseline)] Oxygen Flow Rate (L/min) 5 Oxygen Delivery Method [2] Nasal Cannula Oxygen Delivery Method [1 ( Nasal Cannula Initial Baseline)] Oxygen Delivery Method Nasal Cannula Weight: 183 lb 6.793 oz Body Mass Index (BMI) 27.1 Intake & Output: Intake and Output for Last 24 Hours 02/20/21 02/21/21 02/22/21 23:59 23:59 23:59 Intake Total 1080 / 1080 930 / 930 1310 / 1310 Output Total 2130 / 2130 1480 / 1480 1155 / 1155 Balance -1050 / -1050 -550 / -550 155 / 155 Medical Nutrition Assessment Dietitian: Malnutrition Criteria Met Start: 02/15/21 12:47 Freq: Status: Active Protocol: Document 02/17/21 10:04 (Rec: 02/17/21 10:04 [id number]) Nutrition Malnutrition Evidence of Malnutrition Exists Yes Malnutrition (severe): Acute Illness/Injury Evidenced By Suboptimal Energy Intake ( Severe),Weight Loss (Severe) Intake Problem Inadequate Enteral Nutrition Infusion Etiology - Signs/Symptoms - Status Active Problem Inadequate Oral Intake Etiology related to GI dysfunction, mechanical intubation Signs/Symptoms as evidenced by no nutritional intake > 7 days Status Resolved Problem Clinical Problem Biting/Chewing Difficulty Etiology and swallowing difficulties r/ t prolonged mechanical intubation Signs/Symptoms as evidenced by need for consistency texture/ modifications per [place]REEL[place] COURT REPORTER Status Active Problem Acute Disease or Injury Related Malnutrition Etiology severe acute malnutrition r/t inadequate energy intake d.t resp. failure d/t COVID-19, bowel perforation Signs/Symptoms as evidenced by estimated PO intake meeting <50% of estimated nutritional needs >5 days; unintentional wt loss of 30.1#/14.3% <1 month Status Active Problem Recommendation Dietitian Recommendations/Changes Recommend advance diet as tolerated to transitional, consistency per FREEL[place] [employer] REPORTER. Recommend ensure pudding or magic cup w/ meals when diet advanced past clear liquids. Continue daily wts. Lab / Micro Data Result Diagrams: 02/22/21 06:48 02/22/21 06:48 Labs: Laboratory Results - last 24 hr 02/21/21 18:27: POC Glucose 126 H 02/21/21 22:30: POC Glucose 114 H 02/22/21 00:20: POC Glucose 116 H 02/22/21 06:15: POC Glucose 117 H 02/22/21 06:48: WBC 15.2 H, RBC 3.18 L, Hgb 10.3 L, Hct 31.7 L, MCV 99.7 H, MCH 32.4 H, MCHC 32.5, RDW Std Deviation 49.2 H, RDW Coeff of Blanca 13.3, Plt Count 330, MPV 10.2, Immature Gran % (Auto) 1.400 H, Neut % (Auto) 82.1 H, Lymph % (Auto) 7.8 L, Centre % (Auto) 7.0, Eos % (Auto) 1.4, Baso % (Auto) 0.3, Absolute Neuts (auto) 12.5 H, Absolute Lymphs (auto) 1.19, Nucleated RBC % 0 02/22/21 06:48: Sodium 140, Potassium 3.4 L, Chloride 105, Carbon Dioxide 28.0, Anion Gap 7, BUN 6 L, Creatinine 0.47 L, Estim Creat Clear Calc 187.68, Est GFR (MDRD) Af Amer 237, Est GFR (MDRD) Non-Af 196, BUN/Creatinine Ratio 12.7, Glucose 115 H, Calcium 8.4 L 02/22/21 11:10: POC Glucose 99 Micro: Microbiology 02/13/21 06:00 Sputum, Induced/Lukens Gram Stain - Final 02/13/21 06:00 Sputum, Induced/Lukens Respiratory Culture - Final Staphylococcus aureus 02/07/21 18:00 Stool Stool Occult Blood (MATILDA) - Final Occult Blood Positive 02/05/21 09:31 Sputum, Induced/Lukens Gram Stain - Final 02/05/21 09:31 Sputum, Induced/Lukens Respiratory Culture - Final Staphylococcus aureus 02/01/21 11:25 Blood Culture (Wb) - Central Line Blood Culture - Final No growth in 5 days. 02/01/21 11:45 Blood Culture (Wb) - Left Wrist Blood Culture - Final No growth in 5 days. 02/01/21 11:30 Sputum, Induced/Lukens Gram Stain - Final 02/01/21 11:30 Sputum, Induced/Lukens Respiratory Culture - Final Staphylococcus aureus 01/27/21 18:30 Blood Culture (Wb) - Anticubital Left Blood Culture - Final No growth in 5 days. 01/27/21 18:33 Blood Culture (Wb) - Central Line Blood Culture - Final No growth in 5 days. 01/30/21 13:20 Stool C. difficile DNA Amplification - Final 01/28/21 08:20 Sputum, Induced/Lukens Gram Stain - Final 01/28/21 08:20 Sputum, Induced/Lukens Respiratory Culture - Final Mixed normal respiratory eulalia. No Streptococcus pneumoniae, beta-hemolytic Streptococcus or Staphylococcus aureus isolated. 01/27/21 21:40 Urine Catheter - Catheter Urine Culture - Final Culture exhibits no growth. 01/27/21 19:30 Mucosa - Nose Respiratory Panel (PCR) - Final 01/27/21 19:25 Urine Catheter - Catheter Legionella Antigen - Final 01/27/21 19:25 Urine Catheter - Catheter Streptococcus pneumoniae Antigen (M - Final Radiography Diagnostic Testing: Radiology Impression Abscess Drainage CT 02/21/21 14:40 IMPRESSION: 1. CT directed drainage of a fluid collection using CT image guidance and image documentation as described. 2. Conscious Sedation protocol utilized with independent monitoring Electronically Signed: Simón Saha MD at 15:40 EDT , Service support ,
[2021-02-22] MEDS: 0.9% Saline Lock 10 ML Syringe IV (15:15)
--- NOTE | 2021-02-22 15:38 | PCM.PN.ID ---
Physical Exam Narrative Breathing ok, bringing up sputum, no fever Const alert General Appearance: cooperative Resp Auscultation: diminished lung sounds Cardio regular rate and regular rhythm GI normal to inspection, nondistended, normoactive bowel sounds Skin no rashes or lesions noted ID ID: Route of nutrition/ use of supplements: [] Nutritional Intake: [] IV Site: [] Colon Catheter: [] Assessment & Plan Assessment/Plan (1) Pneumonia due to COVID-19 virus: PLAN: Sx started around 01/15. Isolate for 20 days from that point. Unvaccinated. Encouraged vaccine once recovered. Cxs neg. Wbc remains elevated but improved. UAg neg. CT neg for PE. Given toci x1 on 01/27. Completed dex. Sputum with mssa. Now with bowel perf, taken to OR 02/[address] Wood for extended R hemicolectomy. Possible side effect of tocilizumab, has been reported post marketing; d/w pharmacy, report sent. Treated with zosyn. Taken back to OR 02/12 for fascial dehiscence and small bowel evisceration. Now with tension pneumo requiring chest tube. Off vent now, remains on nasal cannula. CT now with concern for empyema, will cont cefazolin. Transfer planned. Will follow (2) Acute respiratory failure with hypoxia: (3) Perforated bowel:
[2021-02-22 17:11] LABS: Bedside Glucose 115 mg/dL (70-110)
--- NOTE | 2021-02-22 17:50 | NURSING ---
Report called to Rosalie Briggs RN [phone].
[2021-02-22] MEDS: Acetaminophen 325 MG Tablet 650 MG PO (18:14)
== END 2021-02-22 19:25 | disposition short-term general hospital (02) | DRG 853 ==
LOC: ED 18:34 → ICU 20:01 → MS2 02-10 21:34 → ICU 02-12 09:36 → PCU 02-18 12:41
PROVIDERS: Family Medicine; Hospitalist; Internal Medicine; Internal Medicine Critical Care Medicine; Surgery; Admitting Provider Family Medicine; Emergency Provider Emergency Medicine; PCP Family Medicine; Visit Provider Internal Medicine
PROC: 0DTF0ZZ Resection of Right Large Intestine, Open Approach (ICD-10-PCS; CPT 49000; principal; 2021-02-04 16:45)
PROC: 0D1B0Z4 Bypass Ileum to Cutaneous, Open Approach (ICD-10-PCS; principal; 2021-02-12 08:45)
DX: A41.89 Other specified sepsis (principal); U07.1 COVID-19; J12.82 Pneumonia due to coronavirus disease 2019; J96.01 Acute respiratory failure with hypoxia; J93.0 Spontaneous tension pneumothorax; J15.211 Pneumonia due to Methicillin susceptible Staphylococcus aureus; R65.21 Severe sepsis with septic shock; K63.1 Perforation of intestine (nontraumatic); E43 Unspecified severe protein-calorie malnutrition; N17.9 Acute kidney failure, unspecified; E87.0 Hyperosmolality and hypernatremia; K92.1 Melena; T81.32XA Disruption of internal operation (surgical) wound, not elsewhere classified, initial encounter; K91.89 Other postprocedural complications and disorders of digestive system; J93.82 Other air leak; J98.11 Atelectasis; J94.8 Other specified pleural conditions; I10 Essential (primary) hypertension; E78.5 Hyperlipidemia, unspecified; E66.9 Obesity, unspecified; E16.2 Hypoglycemia, unspecified; T38.0X5A Adverse effect of glucocorticoids and synthetic analogues, initial encounter; E87.6 Hypokalemia; R73.9 Hyperglycemia, unspecified; R56.9 Unspecified convulsions; T81.82XA Emphysema (subcutaneous) resulting from a procedure, initial encounter; Y83.8 Other surgical procedures as the cause of abnormal reaction of the patient, or of later complication, without mention of misadventure at the time of the procedure; T17.990A Other foreign object in respiratory tract, part unspecified in causing asphyxiation, initial encounter; Z28.3 Underimmunization status; Z79.899 Other long term (current) drug therapy; Z79.82 Long term (current) use of aspirin; Z68.29 Body mass index [BMI] 29.0-29.9, adult; Z79.52 Long term (current) use of systemic steroids; E87.8 Other disorders of electrolyte and fluid balance, not elsewhere classified; F41.9 Anxiety disorder, unspecified; R49.0 Dysphonia
CPT/HCPCS: 31500; 31720; 36415; 36556; 36600; 51702; 70450; 71045; 71250; 71275; 74018; 74174; 74177; 75989; 80048; 80053; 80076; 80202; 81001; 82140; 82274; 82550; 82803; 82962; 83605; 83615; 83735; 83880; 84100; 84145; 84484; 85014; 85018; 85025; 85027; 85379; 85384; 86140; 87040; 87070; 87077; 87086; 87186; 87205; 87449; 87493; 87633; 87641; 88307; 92507; 92526; 92610; 93005; 93306; 94002; 94003; 94660; 94667; 94668; 97110; 97116; 97150; 97162; 97166; 97530; 97535; 97802; 97803; 99251; 99285; J7030; J7040; J7050; Q9957; Q9967; A4216; C1751; C8929; G0463; J0330; J1940; J2405; J3010; J3262; J3490; J7799

== ENCOUNTER 2021-03-15 18:31 | Inpatient (IN) | payer OTHER, SELFPAY ==
[2021-03-15 18:42] VITALS: BP 115/88; PULSE 103; RESP 18; TEMP 37; O2SAT 96; BMI 26.9
[2021-03-15 22:40] VITALS: BP 118/79; PULSE 105; RESP 20; TEMP 36.2; O2SAT 95
[2021-03-15] MEDS: traZODone 50 MG Tablet PO (22:40)
[2021-03-15] MEDS: Atorvastatin Calcium 40 MG Tablet PO (22:40)
[2021-03-15] MEDS: Acetaminophen 325 MG Tablet 650 MG PO (22:40)
--- NOTE | 2021-03-15 22:40 | NURSING ---
Unable to print ID bracelet. Name and date verified w/ pt. ID manually entered to administer HS meds.
[2021-03-15] MEDS: Amox/Clavulanate 875 MG Tablet PO (22:41)
[2021-03-15] MEDS: 0.9% Saline Lock 10 ML Syringe IV (22:45)
[2021-03-16] MEDS: Enoxaparin 40 MG/0.4 ML Syringe SC (05:36)
[2021-03-16 05:44] LABS: Hematocrit 30.8 % (40-54); Hemoglobin 10.1 g/dL (13.0-16.5); Mean Corp Hgb Conc 32.8 g/dL (32-36); Mean Corpuscular Hgb 30.7 pg (27.0-32.0); Mean Corpuscular Volume 93.6 fL (80-94); Mean Platelet Vol. 9.5 fl (6.2-12.0); Platelet Count 343 K/mm3 (150-450); RBC Distribution Width CV 14.5 % (11.6-14.6); RBC Distribution Width SD 49.7 fl (35.1-43.9); Red Blood Count 3.29 M/mm3 (4.6-6.2); White Blood Count 15.9 K/mm3 (4.4-11.0)
[2021-03-16 06:05] LABS: ALB/GLOB Ratio 0.5 RATIO (0.9-2.4); AST(SGOT) 16 U/L (15-37); Alanine Aminotransfer ALT/SGPT 15 U/L (16-61); Albumin, Serum 2.6 g/dL (3.2-5.0); Alkaline Phosphatase 86 U/L (45-117); Anion Gap 10 (5-15); BUN 21 mg/dL (7-18); BUN/Creat Ratio 11.7 RATIO (10-20); Calcium,Total 9.6 mg/dL (8.5-10.1); Chloride 106 mmol/L (98-107); EST Glomerular Filtration Rate 42 mL/min (>60); Est Glom Filt Rate - Afr Amer 51 mL/min (>60); Estimated Creatinine Clearance 44.37 ml/min; Glucose 93 mg/dL (74-106); Magnesium 1.8 mg/dL (1.6-2.6); Phosphorus 5.2 mg/dL (2.5-4.9); Potassium 3.9 mmol/L (3.5-5.1); Protein, Total 7.6 g/dL (6.4-8.2); Sodium Level 134 mmol/L (136-145)
[2021-03-16] MEDS: Acetaminophen 325 MG Tablet 650 MG PO (06:08)
[2021-03-16] MEDS: Aspirin E.C. 81 MG Tablet PO (08:04)
[2021-03-16] MEDS: Amox/Clavulanate 875 MG Tablet PO ×2 (08:04→20:45)
[2021-03-16] MEDS: Pantoprazole Sodium 40 MG Tablet PO (08:05)
[2021-03-16 08:30] VITALS: BP 125/82; PULSE 104; RESP 22; TEMP 36.3; O2SAT 95
[2021-03-16 08:53] VITALS: BP 120/75; BP 128/83; BP 130/100; PULSE 102; PULSE 111; PULSE 133
--- NOTE | 2021-03-16 10:10 | PCM.HP.STD ---
HPI - General General Date of Admission: 03/15/21 HPI Narrative KEHINDE RIOJAS, is a 55 YO M with a past uncle history of obesity, hypertension and hyperlipidemia who presented to the ED at [facility] on01/27/21 with sx of COVID which he had for 12 days. He had not been vaccinated. He was not a candidate for remdesivir given the timeline. He was given a dose of Tocilizumab and started on Decadron. He was mottled at presentation and was immediately intubated in the ED. He was transferred to ICU. O2 sat was in the 80's despite being intubated and FIO2 of 100%. Gta and ID were consulted. He was started on Zosyn and Vancomycin because the white blood cell count was elevated at 25,000, there were BL infiltrates on the CXR and co-existing bacterial PNA could not be ruled out. He had a protracted hospital admission at [facility] with many complications. He had a cecal perforation and Ex Lap on 02/04 with R hemicolectomy. The mesenteric defect was too large to be closed and the omentum was draped over the bowel contents and then the fascia was closed. He developed septic shock and was placed on pressors. He was taken back to surgery on 02/12/2021 for fascial dehiscence with small bowel evisceration. There was also a leak from the ileocolic anastomosis. Laparotomy with resection of ileocolic anastomosis and creation of end ileostomy and mucous fistula was performed by Dr. Wood. On 02/14/21 he developed a R tension pneumothorax and had a chest tube placed by Dr. Wood. Persistent R lung opacities prompted a CT scan of the chest on 02/21/21. CT chest showed a dense right middle lobe and right lower lobe pneumonia or atelectasis with a moderate sized organized R side hydropneumothorax with multiples loculations containing gas including a 7 cm loculation anteriorly with an air fluid level worrisome for an empyema. He underwent a CT directed drainage of the fluid collection by the radiologist on 02/21/21. It was decided that he should be transferred to a tertiary facility to be evaluated by a thoracic surgeon and on 02/22/21 he was transferred to [facility]. At [facility] he was given lytic agents on 02/25, 02/26, 02/27 and 02/28 by thoracic surgery and his oxygen was able to be weaned down with slow improvement. Chest tube output decreased and his white blood cell count started to trend down. While at [facility] he was seen by general surgery for evaluation of his midline abdominal wound healing by secondary intention and they thought it was healing well. He was also seen by psychiatry and an antidepressant was initiated. While there he had a CorPak due to dysphagia and this was removed prior to discharge. Chest tube was discontinued on 03/14/21. He was evaluated by therapy at [facility] and a recommendation was made for acute rehab at [place]. He was transferred to [facility] acute rehab on 03/15/21 for 3 hours of therapy daily to restore function at or near his prior level of function/independence. He is to remain on Augmentin until 04/23/21 per ID. All lab today was personally reviewed. The white blood cell count is 15.9, the hemoglobin is 10.1 and platelets are within normal limits. Sodium is mildly decreased at 134 and the serum bicarb is low at 18. The BUN is 21 with a creatinine of 1.8 which is up from 0.47 when he left [facility] on 02/22/2021. Phosphorus is mildly increased at 5.2 and the magnesium is 1.8. LFTs are unremarkable. The albumin is decreased at 2.6. Calcium is 9.6. All records from admission to [facility] and the paperwork sent to us from [facility] were reviewed. [facility] Medical History (Updated 03/16/21 @ 13:[address] Ita Hunter, ) Acute respiratory failure with hypoxia Anastomotic leak of intestine Chronic respiratory failure with hypoxia Evisceration of bowel HTN (hypertension) Hyperlipidemia Non-smoker Perforated bowel Pneumonia due to COVID-19 virus Pneumothorax, right Home Medications aspirin [Aspir-Low] 81 mg PO DAILY 01/27/21 [History Last Taken Unknown] atorvastatin 40 mg PO DAILY 01/27/21 [History Last Taken 01/27/21] acetaminophen [Tylenol] 650 mg PO Q6H PRN 03/15/21 [History Last Taken Unknown] amoxicillin-pot clavulanate [Augmentin] 1 tab PO BID 03/15/21 [History Last Taken Unknown] ipratropium-albuterol [DuoNeb] 3 ml INHALATION Q6H PRN 03/15/21 [History Last Taken Unknown] melatonin 6 mg PO DAILY@2200 03/15/21 [History Last Taken Unknown] pantoprazole 40 mg PO DAILY 03/15/21 [History Last Taken Unknown] trazodone 50 mg PO QHS 03/15/21 [History Last Taken Unknown] Allergy/AdvReac Type Severity Reaction Status Date / Time No Known Allergies Allergy Verified 01/27/21 17:40 Family History Mother Diabetes Father Diabetes Surgical History (Updated 03/16/21 @ 11:[address] Ita Hunter DO) History of ileostomy History of right hemicolectomy Hx of chest tube placement S/P correction of deviated nasal septum Social History (Updated 03/16/21 @ 12:[address] 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 Smoking Status: Never smoker alcohol intake: never substance use type: does not use ROS Constitutional Constitutional: Reports anorexia, change in weight, fatigue, weakness and weight loss; Denies chills, fever(s) or night sweats Eyes Eyes: Reports blurry vision and change in vision; Denies burning, double vision, eye pain or loss of vision ENT HEENT: Reports dizziness; Denies dental pain, dysphagia or halitosis Cardiovascular Cardiovascular: Reports chest pain, dyspnea on exertion, lightheadedness, pounding heartbeat and tachypnea; Denies dyspnea at rest Respiratory/Chest Respiratory/Chest: Reports cough, dyspnea, shortness of breath with exertion and other Details: pain in the right lateral chest where the CT was. ; Denies wheezing Gastrointestinal Gastrointestinal: Reports nausea and other Details: he has an ileostomy now in the RLQ of the abdomen and also a mucous fistula on the left side of the abd ; Denies abdominal pain, odynophagia, taste impaired or vomiting Genitourinary Genitourinary: Denies dysuria, hematuria, nocturia, urinary frequency, urinary hesitancy, urinary incontinence or urinary urgency Musculoskeletal Musculoskeletal: Reports muscle weakness, neck pain, stiffness and other Details: he has Muscle pain in the left neck along with decreased rotation to the left ; Denies back pain, joint pain or joint swelling Neurologic Neurologic: Reports dizziness and weakness; Denies confusion, disequilibrium, focal weakness, headache(s), memory loss, paresthesias, seizures, tremor(s) or vertigo Psychiatric Psychiatric: Reports anxiety, change in appetite and depression; Denies auditory hallucinations, difficulty concentrating, hallucinations, homicidal ideation, irritability, suicidal ideation, tactile hallucinations or visual hallucinations Endocrine Endocrinology: Reports change in body appearance; Denies polydipsia or polyuria Hematologic/Lymphatic Hematologic/Lymphatic: Reports easy bruising; Denies easy bleeding or lymphadenopathy Allergic/Immunologic Allergic/Immunologic: Denies rhinitis, eczemia or asthma Vital Signs Vital Signs Vital Signs: 03/15/21 18:42 03/15/21 22:40 03/16/21 08:30 Temperature 98.6 F 97.2 F L 97.4 F L Temperature Source Oral Axillary Oral Pulse Rate 103 H 105 H 104 H Pulse Rate [Lying] Pulse Rate [Sitting] Pulse Rate [Standing] Respiratory Rate 18 20 H 22 H Respiratory Effort Short of Breath Respiratory Depth Shallow Respiratory Pattern Normal Blood Pressure 115/88 H 118/79 125/82 H Blood Pressure [Lying] Blood Pressure [Sitting] Blood Pressure [Standing] Blood Pressure Mean 97 92 96 Blood Pressure Mean [Lying] Blood Pressure Mean [Sitting] Blood Pressure Mean [Standing] Blood Pressure Source Monitor Monitor Monitor Blood Pressure Position Sitting Semi-Fowlers Semi-Fowlers Blood Pressure Location Right Arm Left Arm Left Arm Pulse Ox 96 95 95 Oxygen Delivery Method Room Air Nasal Cannula Nasal Cannula Oxygen Flow Rate (L/min) 0.5 5 03/16/21 08:53 Temperature Temperature Source Pulse Rate Pulse Rate [Lying] 102 H Pulse Rate [Sitting] 111 H Pulse Rate [Standing] 133 H Respiratory Rate Respiratory Effort Respiratory Depth Respiratory Pattern Blood Pressure Blood Pressure [Lying] 128/83 H Blood Pressure [Sitting] 120/75 Blood Pressure [Standing] 130/100 H Blood Pressure Mean Blood Pressure Mean [Lying] 98 Blood Pressure Mean [Sitting] 90 Blood Pressure Mean [Standing] 110 Blood Pressure Source Blood Pressure Position Blood Pressure Location Pulse Ox Oxygen Delivery Method Oxygen Flow Rate (L/min) Weight Weight: 155 lb 13.869 oz Body Mass Index (BMI) 26.9 Physical Exam Const alert, oriented x3 and no apparent distress Constitutional Narrative: appears to be very fatigued. He gets extremely anxious when something new is coming. He has no even been OOB for the past few months General Appearance: cooperative, anxious, ill appearing, frail and appears older than stated age HEENT normocephalic, head/scalp atraumatic, hearing grossly normal bilaterally and gingiva normal HEENT Narrative: tongue is moist and has no coating. Eyes PERRL, conjunctivae normal and no scleral icterus Neck Neck Narrative: Decreased cervical rotation to the left General: trachea midline; Negative for lymphadenopathy, submandibular swelling or meningeal signs Chest Chest Narrative: there is a puncture wound on the R lateral chest due to previous CT. Chest: symmetrical chest wall rise Resp Resp Narrative: Diminished. They are clear anteriorly. He was not able to sit up in the bed or roll over on his side....will reassess when there is someone to help me get him sitting upright and leaning forward or roll him onto his side. He gets very tachypneic when he is anxious and hyperventialtes. Effort and Inspection: able to speak in complete sentences; Negative for abnormal respiratory pattern, retractions or uses accessory muscles Cardio regular rate, regular rhythm, S1 normal heart sound, S2 normal heart sound, no murmurs, no rub and no gallops Cardio Narrative: HR increases with anxiety and with exertion. Jugular Venous Distention: Negative for JVD Bruits: Negative for carotid bruit GI GI Narrative: Ileostomy in the RLQ. Stool in the bag is semisolid and brown. Normal Bowel sounds. He guards with attempt to palpate because he thinks it is going to hurt. There is a large midline incision that is healing by secondary intent. there are 3 retention sutures present. These were removed by the ostomy nurse today. The base of the wound is very dry. No erythema around the wound and no purulent or serosanguineous discharge from the wound. There is a mucous fistula on the left side of the abdomen and this has no erythema around it, no purulent discharge. Extremity normal capillary refill, no joint enlargement, no calf tenderness and no pedal edema General Extremity: Negative for clubbing, cyanosis or deformity Skin General Skin Exam: no breakdown Rashes: no rashes Hair: general thinning Neuro oriented x3, CN's II-XII intact bilaterally, moves all extremities, no focal motor deficits and no sensory deficits noted Neuro Narrative: Generalized weakness Psych mental status grossly normal, thought process normal, cooperative and speech normal; Negative for denies hallucinations or denies homicidal ideation Psych Narrative: Flat affect with little voice modulation when I am talking with him. Gets very anxious when seen by PT/OT/ when getting to the EOB and getting OOB. He hyperventilates and gets lightheaded and tachycardic - having panic attacks. Activity / Motor Behavior: appropriate eye contact; Negative for psychomotor agitation, psychomotor slowing, fidgetting or restless Results Lab / Micro Data Result Diagrams: 03/16/21 05:20 03/16/21 05:20 Labs: Laboratory Results - last 24 hr 03/16/21 05:20: WBC 15.9 H, RBC 3.29 L, Hgb 10.1 L, Hct 30.8 L, MCV 93.6, MCH 30.7, MCHC 32.8, RDW Std Deviation 49.7 H, RDW Coeff of Blanca 14.5, Plt Count 343, MPV 9.5 03/16/21 05:20: Sodium 134 L, Potassium 3.9, Chloride 106, Carbon Dioxide 18.0 L, Anion Gap 10, BUN 21 H, Creatinine 1.80 H, Estim Creat Clear Calc 44.37, Est GFR (MDRD) Af Amer 51 L, Est GFR (MDRD) Non-Af 42 L, BUN/Creatinine Ratio 11.7, Glucose 93, Calcium 9.6, Phosphorus 5.2 H, Magnesium 1.8, Total Bilirubin 0.30, AST 16, ALT 15 L, Alkaline Phosphatase 86, Total Protein 7.6, Albumin 2.6 L, Globulin 5.0 H, Albumin/Globulin Ratio 0.5 L Assessment & Plan Assessment/Plan (1) Physical debility: (2) Generalized weakness: (3) Empyema lung: (4) Chronic respiratory failure with hypoxia: (5) Acute renal failure: (6) Hyponatremia: (7) Metabolic acidosis: (8) Hyperphosphatemia: (9) Normochromic normocytic anemia: (10) Depression: (11) HTN (hypertension): (12) Hyperlipidemia: (13) Iron deficiency: (14) Anxiety disorder due to general medical condition with panic attack: PLAN: PLAN PT for gait stability OT for ADL's ST for evaluation Analgesics as needed Bowel protocol Fall precautions Assess for Anxiety/Depression GI prophylaxis with pantoprazole 40 mg p.o. daily DVT prophylaxis with enoxaparin 40 mg subcu daily Follow up with PCP, ID, wound care clinic, pulmonary following DC from [facility] AM lab including CMP, CBC, Mag and Phos - reviewed. Will add a ferritin, iron and iron binding capacity, urine NA and creatinine, UA and a differential on the CBC. PA and LAT CXR today. Overnight trending pulse ox Check vital signs and pulse ox before and after ambulation Start Klonopin 0.5 mg Q8H and PRN 0.25mg Xanax for panic attacks Remeron 15 mg PO Q HS for depressions. Need to control the anxiety/panic attacks or he will be very difficult in therapy......he is afraid his incision will break down if he exerts himself. He is afraid something else bad will happen. Charges/Coding Visit Charges Inpatient E&M: 19575 Init Hosp L3
[2021-03-16] MEDS: DAKIN'S SOL HALF STRENGTH (=0.25%) 1 APPLIC TOPICAL ×2 (10:45→20:46)
--- NOTE | 2021-03-16 11:25 | WOUNDNOTE ---
wound photo: abdomen
--- NOTE | 2021-03-16 11:31 | WOUNDNOTE ---
Ostomy appliance removed from the RLQ. there was a small amount of brown semi liquid stool noted in the appliance. stoma is beefy red and moist. sits just above the skin level and is slightly oval in shape. peristomal skin is intact. cleansed skin with warm water. pat dry. applied a new 2 piece flat Coloplast appliance with a thin barrier ring. pt tolerated well. Dr Hunter had been in to assess the wound. the retention sutures have been in place since before patient was sent to [place]. Dr Hunter talked with Dr Wood, and orders were received to remove the retention sutures at this time. the 3 retention sutures were removed by this nurse. pt tolerated well.
[2021-03-16 11:45] LABS: Absolute Neutrophil Count 12.6 X10^3/uL (2.0-7.7); Basophil# 0.16 X10^3/uL; Eosinophil# 0.32 X10^3/uL; Lymphocyte % 8.3 % (19-41); Monocyte# 1.13 X10^3/uL; Monocyte% 7.2 % (0-10); NRBC Flagged by Analyzer 0 % (0-5); Neutrophil # 12.56 X10^3/uL (2.7-7.7); Neutrophil % 80.2 % (47-70)
--- NOTE | 2021-03-16 11:46 | RAD_ITS ---
INDICATION: follow up on empyema EXAMINATION/TECHNIQUE: X-RAY - XR Chest 2 Views COMPARISON: Chest radiograph from 02/19/2021 FINDINGS: LINES/DEVICES: None. Moderate improvement in aeration of both lungs with similar distribution of bilateral airspace disease. Likely trace residual right pleural effusion. No sizable pneumothorax. Heart size is stable. Bones and soft tissues are unchanged. RAD/Chest PA and Lateral IMPRESSION: Moderate improvement in aeration of the lungs with similar distribution of residual bilateral airspace disease and trace residual right pleural effusion. Electronically Signed: Alex Burgess MD at 13:26 EST Tel , Service support ,
--- NOTE | 2021-03-16 11:49 | REHABEVAL_ITS ---
Admission Information Primary Diagnosis:: Debility due to prolonged hospital admission related to COVID-19 infection with multiple complications Status Changes from Prescreening?: No changes Identified Actual Problem List:: Infection, Skin Intergrity, Pain, ALteration in Cmfrt, Cognitve Impr/Memory Loss, Depression, Alteration in Sleep, Alteration in Nutrition, Mobility Impaired, Self Care Deficit, Alteration/ Air Exchange and Alteration-Leisure Activ. Potential Problem List:: DVT, Bleeding, Infection, UTI, Aspiration, Falls, Skin Integrity and Depression Risk of Complications DVT: LMWH (And I 40 mg subcu daily) and KEHINDE Hose Bleeding: Monitor Lab Values, Nursing to Teach Precautions for anti-coagulation therapy., Wound, if applicable, to be assessed every shift. and Stroke patients assessed for lethargy or change in status. Infection: Clinical Staff to Monitor for S/S of infection: and S/S of infection include fever, redness, warmth, etc. Urinary Tract Infection: Monitor for frequency, burning, discomfort, or incontinence. and Nursing will obtain urine sample for urinalysis and C&S when ordered. Aspiration: Clinical staff will monitor for coughing, drooling, congestion., Speech will evaluate swallowing and dsyphasia. and Nursing will monitor patient swallowing during meals. Falls: Patient will be evaluated for Fall Precautions and Patient will be placed on Fall Precautions as indicated per protocol. Skin Breakdown: Nursing will assess skin daily using assessment tool. and Nursing will place on Skin Breakdown Precautions as indicated. Pain: Clinical staff will assess patient's pain level per protocol., Medications will be given, if needed, and the pain level reassessed. and Other methods: Massage, distraction, decrease stimulus, etc. used PRN. Plan of Care Patient requires physician specializing in physical medicine and rehab oversight to provide close medical supervision of rehab issues including: Pain Management, Sleep Problems, Bowel and Bladder, Medical and co-morbidity Management, DVT prophylaxis, Rehabilitation Leadership and Coordination of treatment team Patient needs Physical Therapy: For a minimum of 1 hour and At least 5 out of 7 days Patient needs Physical Therapy to improve:: Mobility, Strengthening, Transfers, Stretching, ROM, Endurance, Stairs, Gait and Balance Patient needs Occupational Therapy: For a minimum of 1 hour and At least 5 out of 7 days Patient needs Occupational Therapy to improve ADL's incl.: Eating, Grooming, Bathing, Dressing, Toileting, Toilet transfers, Community Reintegration, Higher functioning activities, Household tasks, Adaptive Equipment, Splinting and Other activities as determined Patient requires speech therapy: For a minimum of 1 hour and At least 5 out of 7 days Patient requires speech therapy for: Swallowing, Cognition, Language Skills and Compensatory Strategies Patient requires 24/7 Rehabilitation Nursing for: Pain Issues, Identifying and preventing risk factors, Monitoring and reporting current medical conditions, Assisting with ambulation, transfer, and all ADL's, Teaching patients about disease process and medications, Family teaching, Providing safe environment, Bowel and Bladder Issues, Skin integrity and Medication Management Patient needs Bow Maker Machine Tender/ Case Management for: Discharge Planning, Arranging Home Equipment or Services and Family Interventions Patient needs Dietary and Nutrition Services for: Adequate Nutrition, Nutritional Supplements and Nutritional Education Goals Patient will remain: free from falls and or injury at time of discharge. Patient will perform bed mobility at: MOD I level of assist. Patient will complete transfers from bed to chair at: MOD I level of assist. Patient will ambulate: with LRD and - (200 feet with least restrictive device at mod I on different surfaces) Patient will complete upper body dressing at: MOD I level of assist. Patient will complete lower body dressing at: MOD I level of assist. Patient will complete toileting at: MOD I level of assist. Patient will perform bathing at: MOD I level of assist. Patient will complete grooming at: MOD I level of assist. Patient will complete home management skills at: MOD I level of assist. Patient will achieve: 12 stairs (with 1 rail at SBA to allow access to the second floor of his house) and - (1 curb step) Patient will have pain level of: of 3 or less Patient's skin will: remain intact Patient will receive: adequate nutrition. Discharge Planning Pt Prognosis for Sig. Practical Improv. w/in Reasonable Time: Good Estimated Length of stay (days): 28 Anticipated D/C Destination: Home Was Preadmission Assessment Accurate?: Yes
[2021-03-16 12:01] LABS: Ferritin 727 ng/mL (26-388); Iron 37 ug/dL (65-175); Iron Binding Capacity,Total 316 ug/dL (250-450); PERCENT IRON SATURATION 11.7 % (15.0-55.0)
[2021-03-16 12:34] VITALS: O2SAT 95
[2021-03-16 13:19] LABS: Bacteria 0 SEEN /hpf (None Seen); Mucous, Urine 0 SEEN /hpf (<or=2+)
[2021-03-16 13:35] LABS: Urine Sodium 12 mmol/L (Not Establ.)
[2021-03-16 13:37] LABS: Color, Urine Yellow (Yellow); Glucose, Dipstick Normal (Normal); Ketone-Dipstick Negative (Negative); Leukocyte Esterase-Dipstick 25 /ul (Negative); Nitrite-Dipstick Negative (Negative); Occult Blood-Urine 10 /ul (Negative); Protein-Dipstick 30 mg/dl (Negative); Specific Gravity, Urine 1.015 (1.002-1.030); Urine Bilirubin Dipstick Negative (Negative); Urine Clarity Cloudy (Clear); Urine Urobilinogen Normal (Normal)
[2021-03-16 13:44] LABS: Red Blood Cells-Urine 0-5 SEEN /hpf (0-5); Squamous Epithelial Cells - UA 0-5 SEEN /hpf (0-5); White Blood Cells 0-5 SEEN /hpf (0-5)
[2021-03-16] MEDS: 0.9% Saline Lock 10 ML Syringe IV ×2 (14:54→20:28)
[2021-03-16] MEDS: Sodium Ferric Gluconat 125 MG in 0.9% Normal Saline 100 ML 110 MG IV (14:55)
[2021-03-16] MEDS: clonazePAM 0.5 MG Tablet PO ×2 (14:55→20:49)
[2021-03-16] MEDS: Arthritis Pain Compound 60 CLICK TUBE TOPICAL ×2 (15:07→20:45)
[2021-03-16 20:00] VITALS: BP 123/80; PULSE 104; RESP 18; TEMP 36.6; O2SAT 98
[2021-03-16 20:22] VITALS: PULSE 103; O2SAT 92
[2021-03-16] MEDS: traZODone 50 MG Tablet PO (20:45)
[2021-03-16] MEDS: Atorvastatin Calcium 40 MG Tablet PO (20:45)
[2021-03-16] MEDS: MELATONIN 3 MG TABLET 6 MG PO (20:50)
[2021-03-16] MEDS: Mirtazapine 15 MG Tablet PO (20:50)
--- NOTE | 2021-03-17 02:47 | NURSING ---
REVIEWED AND AGREE WITH [employer]ER'S FUNCTIONAL ASSESSMENT AND HANDOFF CHARTING.
[2021-03-17] MEDS: Enoxaparin 40 MG/0.4 ML Syringe SC (05:50)
[2021-03-17] MEDS: clonazePAM 0.5 MG Tablet PO ×3 (05:51→20:48)
[2021-03-17] MEDS: Amox/Clavulanate 875 MG Tablet PO ×2 (08:24→21:25)
[2021-03-17] MEDS: Pantoprazole Sodium 40 MG Tablet PO (08:24)
[2021-03-17] MEDS: Aspirin E.C. 81 MG Tablet PO (08:24)
[2021-03-17] MEDS: Arthritis Pain Compound 60 CLICK TUBE TOPICAL ×2 (08:24→20:49)
[2021-03-17 08:35] VITALS: BP 107/57; PULSE 110; RESP 18; TEMP 36.7; O2SAT 96
[2021-03-17] MEDS: DAKIN'S SOL HALF STRENGTH (=0.25%) 1 APPLIC TOPICAL ×2 (08:48→21:19)
[2021-03-17 10:46] VITALS: O2SAT 95
[2021-03-17] MEDS: Sodium Ferric Gluconat 250 MG in 0.9% Normal Saline 250 ML 135 MG IV (10:51)
--- NOTE | 2021-03-17 11:30 | NURSING ---
Attempted to do VS before and after ambulation like communication order specifies and each time, bp reading was not recording. Will attempt at another time with therapy. Patient exerts self quickly and went back to bed.
--- NOTE | 2021-03-17 12:00 | NURSING ---
pulse ox before ambulation with therapy 96% 1L and after ambulation 88% 1 L oxygen. patient ambulated a few steps and exerted himself to the point he had to rest and go back to bed.
[2021-03-17 20:00] VITALS: BP 116/70; PULSE 90; RESP 16; TEMP 36.1; O2SAT 95
[2021-03-17] MEDS: traZODone 50 MG Tablet PO (20:48)
[2021-03-17] MEDS: Atorvastatin Calcium 40 MG Tablet PO (21:25)
[2021-03-17] MEDS: Mirtazapine 15 MG Tablet PO (21:25)
[2021-03-17] MEDS: MELATONIN 3 MG TABLET 6 MG PO (21:25)
[2021-03-18] MEDS: clonazePAM 0.5 MG Tablet PO ×3 (05:44→20:06)
[2021-03-18] MEDS: Enoxaparin 40 MG/0.4 ML Syringe SC (05:44)
[2021-03-18] MEDS: Amox/Clavulanate 875 MG Tablet PO ×2 (08:15→20:06)
[2021-03-18] MEDS: Aspirin E.C. 81 MG Tablet PO (08:15)
[2021-03-18] MEDS: Pantoprazole Sodium 40 MG Tablet PO (08:15)
[2021-03-18] MEDS: Arthritis Pain Compound 60 CLICK TUBE TOPICAL ×2 (08:15→20:07)
[2021-03-18] MEDS: DAKIN'S SOL HALF STRENGTH (=0.25%) 1 APPLIC TOPICAL ×2 (08:16→20:39)
[2021-03-18] MEDS: Sodium Ferric Gluconat 250 MG in 0.9% Normal Saline 250 ML 135 MG IV (09:52)
[2021-03-18] MEDS: 0.9% Saline Lock 10 ML Syringe IV (09:52)
[2021-03-18 10:00] VITALS: BP 130/70; PULSE 100; RESP 18; TEMP 36.2; O2SAT 100
--- NOTE | 2021-03-18 12:00 | NURSING ---
Patient got up in chair with x2 nursing staff and did stand pivot with approx 3 steps. VS before ambulation 98-115/64-96% 1 L oxygen and after transfer patient was 102-112/70-92% 1 L oxgyen.
[2021-03-18 20:00] VITALS: BP 112/78; PULSE 98; RESP 18; TEMP 35.7; O2SAT 97
[2021-03-18 20:06] VITALS: PULSE 98
[2021-03-18] MEDS: Mirtazapine 15 MG Tablet PO (20:06)
[2021-03-18] MEDS: traZODone 50 MG Tablet PO (20:06)
[2021-03-18] MEDS: Atorvastatin Calcium 40 MG Tablet PO (20:07)
[2021-03-18] MEDS: MELATONIN 3 MG TABLET 6 MG PO (20:07)
[2021-03-19 05:36] LABS: Absolute Lymphocyte Count 1.34 X10^3/uL (0.83-4.51); Absolute Neutrophil Count 12.8 X10^3/uL (2.0-7.7); Basophil# 0.12 X10^3/uL; Basophil% 0.8 % (0-1); Eosinophil# 0.42 X10^3/uL; Eosinophils% 2.7 % (0-5); Hematocrit 31.3 % (40-54); Hemoglobin 10.3 g/dL (13.0-16.5); Lymphocyte # 1.34 X10^3/ul (0.83-4.51); Lymphocyte % 8.5 % (19-41); Mean Corp Hgb Conc 32.9 g/dL (32-36); Mean Corpuscular Hgb 31.3 pg (27.0-32.0); Mean Corpuscular Volume 95.1 fL (80-94); Monocyte# 1.01 X10^3/uL; Monocyte% 6.4 % (0-10); NRBC Flagged by Analyzer 0 % (0-5); Neutrophil # 12.77 X10^3/uL (2.7-7.7); Neutrophil % 80.5 % (47-70); Platelet Count 348 K/mm3 (150-450); RBC Distribution Width CV 14.4 % (11.6-14.6); RBC Distribution Width SD 50.1 fl (35.1-43.9); Red Blood Count 3.29 M/mm3 (4.6-6.2); White Blood Count 15.8 K/mm3 (4.4-11.0)
[2021-03-19] MEDS: clonazePAM 0.5 MG Tablet PO ×2 (05:37→20:11)
[2021-03-19] MEDS: Enoxaparin 40 MG/0.4 ML Syringe SC (05:37)
[2021-03-19 06:04] LABS: Anion Gap 11 (5-15); BUN 20 mg/dL (7-18); BUN/Creat Ratio 9.4 RATIO (10-20); Calcium,Total 9.7 mg/dL (8.5-10.1); Chloride 106 mmol/L (98-107); Creatinine, Serum 2.12 mg/dL (0.70-1.30); EST Glomerular Filtration Rate 35 mL/min (>60); Est Glom Filt Rate - Afr Amer 42 mL/min (>60); Estimated Creatinine Clearance 37.67 ml/min; Glucose 96 mg/dL (74-106); Phosphorus 5.3 mg/dL (2.5-4.9); Potassium 3.8 mmol/L (3.5-5.1); Sodium Level 135 mmol/L (136-145)
[2021-03-19 08:02] VITALS: BP 127/77; PULSE 100; RESP 16; TEMP 36.5; O2SAT 99
[2021-03-19] MEDS: Arthritis Pain Compound 60 CLICK TUBE TOPICAL ×2 (08:02→20:11)
[2021-03-19] MEDS: Pantoprazole Sodium 40 MG Tablet PO (08:03)
[2021-03-19] MEDS: Aspirin E.C. 81 MG Tablet PO (08:03)
[2021-03-19] MEDS: Amox/Clavulanate 875 MG Tablet PO ×2 (08:03→22:26)
[2021-03-19 08:20] VITALS: O2SAT 94
[2021-03-19] MEDS: Sodium Ferric Gluconat 250 MG in 0.9% Normal Saline 250 ML 135 MG IV (09:41)
[2021-03-19] MEDS: 0.9% Saline Lock 10 ML Syringe IV (09:43)
--- NOTE | 2021-03-19 10:32 | PN_ITS ---
Progress Note Afebrile VSS Maintaining appropriate oxygen saturation on RA Oral intake is good Discussed with nursing - no problems that need addressed Reviewed the PT/OT/ST notes Medication list reviewed. He has not had any Xanax for panic attacks since the Klonopin was started. He has been feeling tired and has been sleeping more. All lab from today was personally reviewed. White blood cell count remains elevated at 15.8. There is a persistent left shift with 80.5% neutrophils and 1.1% immature granulocytes. Platelets are within normal limits. The hemoglobin is decreased at 10.3 which is stable. The MCV is increased at 95.1. Sodium is still mildly decreased at 135 but stable. Persistent metabolic acidosis with a serum bicarb of 18. BUN is 20 and the creatinine is now 2.12. Urine sodium is decreased at 12 and the urine creatinine is 61.9 for a fractional excretion of sodium of 0.3%. Physical Exam Const oriented x3 Constitutional Narrative: somewhat drowsy but he had 3 hours of therapy this AM. Going forward he will have ST in the afternoon to break it up more. A little slow with thought processing but, appropriate answers to my questions. General Appearance: cooperative HEENT moist oral mucous membranes Eyes conjunctivae normal and no scleral icterus Resp no retractions and no use of accessory muscles Resp Narrative: voice is soft and does not project well. He has decreased BS's in the R base and there are crackles.....coarse. No wheezes. Effort and Inspection: able to speak in complete sentences GI normal to inspection, nondistended, normoactive bowel sounds, soft to palpation and non-tender GI Narrative: colostomy is producing a soft greenish brown stool. Extremity no calf tenderness and no pedal edema Skin General Skin Exam: no breakdown Rashes: no rashes Assessment & Plan Assessment/Plan (1) Metabolic acidosis: (2) Acute renal failure: (3) Anxiety disorder due to general medical condition with panic attack: (4) Iron deficiency: (5) Generalized weakness: (6) Physical debility: (7) Hyponatremia: (8) Depression: (9) Empyema lung: (10) Hyperphosphatemia: (11) Prerenal azotemia: PLAN: 1. 500 cc of normal saline over the next 2 hours. 2. Normal saline at 100 cc/h following the bolus 3. Recheck a BMP and H&H in the a.m. 4. Accurate I&O's 5. check another couple PVR's 6. D/W Dr. Alcantara, OK for him to get COVID vaccine. Will schedule for the AM....[facility] is having a Pf[facility] clinic tomorrow for first time vaccination 7. Continue therapy Visit Charges Inpatient E&M: 96240 Subs Hosp L2
--- NOTE | 2021-03-19 11:17 | NURSING ---
BP before and after ambulation with therapy, 138/88-107 left arm and then 128/87-100 left arm. Spo2 98% 1 L oxygen and 92% 1 L oxygen.
[2021-03-19 11:25] VITALS: O2SAT 98
[2021-03-19] MEDS: DAKIN'S SOL HALF STRENGTH (=0.25%) 1 APPLIC TOPICAL ×2 (12:16→20:15)
--- NOTE | 2021-03-19 13:04 | WOUNDNOTE ---
wound photo: abdomen
[2021-03-19] MEDS: 0.9% Normal Saline 1,000 ML 100 ML IV (13:50)
--- NOTE | 2021-03-19 14:01 | CASEMGMT ---
Social Work IDT met with patient and for Team meeting. Discussed patient's progress in PT/OT/ST and nursing. Pt had O2 new from COVID-19 but prior to hospitalization. Pt was on 3LPM from [place]. Pt is currently on 2LPM with exertion, but none needed at rest or at night, per . Pt has wound and ostomy, IV fluids and IV iron. Pt responding well to antidepressant and antianxiety med. Encouraging pt to eat - started pt on appetite stimulant. Explained [facility] insurance with NRD 03/23 and continued stay is not guaranteed. The goal is for pt to return home with close to PLOF. Pt was independent and working prior. 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 Will ReTeam next week. SW to continue to follow. Maribel Dalal, [employer] MANAGER BELLOWS ASSEMBLER
[2021-03-19] MEDS: Dronabinol 2.5 MG Capsule PO (20:11)
[2021-03-19 21:50] VITALS: BP 124/79; PULSE 100; RESP 18; TEMP 36.3; O2SAT 98
[2021-03-19] MEDS: Mirtazapine 15 MG Tablet PO (22:26)
[2021-03-19] MEDS: Atorvastatin Calcium 40 MG Tablet PO (22:26)
[2021-03-19] MEDS: traZODone 50 MG Tablet PO (22:26)
[2021-03-19] MEDS: MELATONIN 3 MG TABLET 6 MG PO (22:27)
[2021-03-20] MEDS: 0.9% Normal Saline 1,000 ML 100 ML IV ×2 (00:29→11:58)
[2021-03-20] MEDS: Enoxaparin 40 MG/0.4 ML Syringe SC (05:02)
[2021-03-20 05:50] LABS: Anion Gap 10 (5-15); BUN 17 mg/dL (7-18); BUN/Creat Ratio 8.5 RATIO (10-20); Chloride 112 mmol/L (98-107); Creatinine, Serum 2.01 mg/dL (0.70-1.30); EST Glomerular Filtration Rate 37 mL/min (>60); Est Glom Filt Rate - Afr Amer 45 mL/min (>60); Estimated Creatinine Clearance 39.74 ml/min; Glucose 79 mg/dL (74-106); Potassium 3.9 mmol/L (3.5-5.1); Sodium Level 138 mmol/L (136-145)
[2021-03-20 07:47] VITALS: BP 122/76; PULSE 101; RESP 16; TEMP 36.3; O2SAT 98
[2021-03-20] MEDS: Aspirin E.C. 81 MG Tablet PO (07:50)
[2021-03-20] MEDS: Arthritis Pain Compound 60 CLICK TUBE TOPICAL ×2 (07:50→20:46)
[2021-03-20] MEDS: Amox/Clavulanate 875 MG Tablet PO ×2 (07:50→20:43)
[2021-03-20] MEDS: Pantoprazole Sodium 40 MG Tablet PO (07:50)
[2021-03-20] MEDS: clonazePAM 0.5 MG Tablet PO (07:52)
[2021-03-20 08:20] VITALS: O2SAT 98
[2021-03-20 09:16] LABS: Hematocrit 33.3 % (40-54); Hemoglobin 10.3 g/dL (13.0-16.5)
[2021-03-20] MEDS: COVID-19 VACC, MRNA(PFIZER)/PF 30 MCG/0.3 ML SYRINGE IM (09:19)
--- NOTE | 2021-03-20 09:25 | PCM.PN.BLA ---
Progress Note AF high resting HR at 90-101 but, it has been coming down with hydration. BP is WNL and stable I&O - 2230/1950 + 280 oral intake was 1460 yesterday All lab was personally reviewed. The HGB is stable at 10.3. Sodium is up to 138 today from 134 on 03/16. Serum bicarb is down to 16. The BUN is 17 and the creat is 2.01, down from 2.12 yesterday. ALB is pending. Calcium is 9. K is 3.9. Aayush and his both say that they were told the kidney failure was due to an antibiotic at [facility]......Vanco? Aayush is drowsy today. States he slept well. Denies CP, SOB at rest, calf pain, Nausea, dysuria. PVR yesterday was 0. He is not coughing. Physical Exam Const Constitutional Narrative: drowsy. Hard time waking up today. NAD. Speech is a little slurred. HEENT moist oral mucous membranes Resp clear to auscultation bilaterally Resp Narrative: diminished due to not taking deep breaths. Still with crackles in the left base. This may be due to scarring. Cardio regular rhythm, no rub and no gallops Cardio Narrative: tachycardic at rest GI soft to palpation and non-distended GI Narrative: OP from the ileostomy today is brown water......is has previous had some form to it. He denies abd pain. BS's are not hyperactive. Extremity no calf tenderness and no pedal edema Skin General Skin Exam: no breakdown Rashes: no rashes Assessment & Plan Assessment/Plan (1) Physical debility: PLAN: continue therapy. I expect he will progress slowly due to the protracted hospital course after peng COVID in mid December with many complications. He is very motivated and is making some progress every day. He is drowsy today so will DC the Trazodone. DC the melatonin and continue the Remeron and the Dronabinol at HS (2) Acute renal failure: PLAN: Creat dropped from 2.12 yesterday to 2.02 today with hydration but, the fluid balance is only + 280. FENA is 0.3%. Will consult Dr. Gonzalez (3) Hyperphosphatemia: PLAN: May need to start a phosphate binder. Not on any calcium. Calcium is 9 today and we are awaiting the albumin to calculate the true calcium. (4) Metabolic acidosis: PLAN: Serum bicarb is now down to 16. Will start bicarb tabs BID. RR is increased and he is SOB with minimal exertion and this is likely multifactorial but, I suspect the acidosis contributes. (5) Hyponatremia: PLAN: resolved (6) Iron deficiency: PLAN: Iron supplementation is in progress. Visit Charges Inpatient E&M: 55460 Subs Hosp L3
[2021-03-20] MEDS: Sodium Ferric Gluconat 250 MG in 0.9% Normal Saline 250 ML 135 MG IV (09:36)
[2021-03-20 10:26] LABS: Albumin, Serum 2.2 g/dL (3.2-5.0)
--- NOTE | 2021-03-20 11:44 | NURSING ---
prior to ambulation bp 119/82 left arm, hr 106 per monitor and pulse ox 99% on 2l via nasal cannula, after ambulation bp 129/86 left arm, hr 117 per monitor and pulse ox 97% on 2l via nasal cannula.
[2021-03-20] MEDS: Sodium Bicarbonate 650 MG Tablet PO (11:54)
[2021-03-20] MEDS: DAKIN'S SOL HALF STRENGTH (=0.25%) 1 APPLIC TOPICAL ×2 (11:57→20:52)
--- NOTE | 2021-03-20 12:08 | PCM.CONS.R ---
Assessment & Plan Assessment/Plan (1) Acute renal failure: PLAN: His previous baseline creatinine on February 22 was 0.4. Initially at [facility], creatinine was close to baseline. Over the last 10 days creatinine slowly increased to 1.6. Urine analysis was fairly benign. There was a vancomycin level of 29. Urine sodium was less than 20. He did receive IV fluids over there. Now creatinine is worsening. Postvoid bladder residuals are okay. Has large amount of ileostomy output. Now having to empty every 2 hours. Urine sodium is less than 20. It is possible it still dehydration. He received a liter of fluid yesterday. We will give some more fluid today. Discussed with hospitalist. Possible Imodium for high stomal output. Acidosis. [place]. Likely due to stomal output. IV fluids today will be bicarbonate. Hyponatremia. Likely due to volume depletion. Better today. Anemia. With low iron saturation. Receiving IV iron today. Discussed with Dr. Hunter (2) Iron deficiency: HPI Consult Data Date of Consult: 03/20/21 HPI Narrative HPI Narrative: KEHINDE RIOJAS, is a 55 M who presents to the rehab here. He had a somewhat long and complicated hospital stay here and at [facility]. Initially he was admitted with Covid pneumonia, received steroids and Tocilizumab. Complicated by tension pneumothorax requiring chest tube placement, complicated by loculated pleural effusions, required thrombolytics, required long course of antibiotics. Hospital course also complicated by cecal perforation, revision surgery, end ileostomy. Nephrology consulted for acute renal failure. Baseline creatinine was 0.4. He was admitted at [facility] with a creatinine of 0.4. Reviewed records from over there. Creatinine started increasing over the last 10 days. Discharge creatinine was at 1.6 on the . Here creatinine is around 1.8-2.1. Urine sodium was fairly low. Previous abdominal imaging was negative. He has been having post void bladder scans here and it was negative. He has been consistently net negative due to large amount of stool output. Appetite is not so great. No breathing issues. He still on nasal cannula from Covid pneumonia. [facility] Medical History (Updated 03/20/21 @ 09:[address] Ita Hunter, DO) Acute respiratory failure with hypoxia Anastomotic leak of intestine Chronic respiratory failure with hypoxia Evisceration of bowel HTN (hypertension) Hyperlipidemia Non-smoker Perforated bowel Pneumonia due to COVID-19 virus Pneumothorax, right Home Medications aspirin [Aspir-Low] 81 mg PO DAILY 01/27/21 [History Last Taken Unknown] atorvastatin 40 mg PO DAILY 01/27/21 [History Last Taken 01/27/21] acetaminophen [Tylenol] 650 mg PO Q6H PRN 03/15/21 [History Last Taken Unknown] amoxicillin-pot clavulanate [Augmentin] 1 tab PO BID 03/15/21 [History Last Taken Unknown] ipratropium-albuterol [DuoNeb] 3 ml INHALATION Q6H PRN 03/15/21 [History Last Taken Unknown] melatonin 6 mg PO DAILY@2200 03/15/21 [History Last Taken Unknown] pantoprazole 40 mg PO DAILY 03/15/21 [History Last Taken Unknown] trazodone 50 mg PO QHS 03/15/21 [History Last Taken Unknown] Allergy/AdvReac Type Severity Reaction Status Date / Time No Known Allergies Allergy Verified 01/27/21 17:40 Family History Mother Diabetes Father Diabetes Surgical History (Updated 03/16/21 @ 11:[address] Ita Hunter DO) History of ileostomy History of right hemicolectomy Hx of chest tube placement S/P correction of deviated nasal septum Social History (Updated 03/16/21 @ 12:[address] 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 Smoking Status: Never smoker alcohol intake: never substance use type: does not use ROS ROS Narrative Negative except history Physical Exam Narrative Alert awake oriented x 3 no obvious distress no pallor no icterus no JVD s1s2 no murmurs lungs clear abdomen soft no organomegaly no edema no cyanosis Medical Records Data Medical Nutrition Assessment Dietitian: Malnutrition Criteria Met Start: 03/16/21 15:20 Freq: Status: Active Protocol: Document 03/16/21 15:20 AG (Rec: 03/16/21 15:20 [id number]) Nutrition Malnutrition Evidence of Malnutrition Exists Yes Malnutrition (severe): Acute Illness/Injury Evidenced By Suboptimal Energy Intake ( Severe),Weight Loss (Severe) Clinical Problem Acute Disease or Injury Related Malnutrition Etiology severe, acute malnutrition r/t inadequate energy intake d/t acute illness/medical complications from COVID-19 Signs/Symptoms as evidenced by unintentional wt loss of 54.1#/26% < 2 months, estimated PO intake meeting <50% of estimated nutritional needs x 1.5 months Status Active Problem Recommendation Dietitian Recommendations/Changes continue regular diet- texture /consistency per [employer]NATIONAL TRADE TEACHER; Will d/c Ensure Enlive d/t pt refusal and fortify foods, provide 1 scoop beneprotein w/ meals. Will try Justin BID for wound healing. Will monitor labs and need for phos restriction. Lab / Micro Data Result Diagrams: 03/20/21 08:10 03/20/21 05:20 Labs: Laboratory Results - last 24 hr 03/20/21 05:20: Sodium 138, Potassium 3.9, Chloride 112 H, Carbon Dioxide 16.0 L, Anion Gap 10, BUN 17, Creatinine 2.01 H, Estim Creat Clear Calc 39.74, Est GFR (MDRD) Af Amer 45 L, Est GFR (MDRD) Non-Af 37 L, BUN/Creatinine Ratio 8.5 L, Glucose 79, Calcium 9.0 03/20/21 05:20: Albumin 2.2 L 03/20/21 08:10: Hgb 10.3 L, Hct 33.3 L
[2021-03-20] MEDS: Atorvastatin Calcium 40 MG Tablet PO (20:43)
[2021-03-20] MEDS: clonazePAM 0.5 MG Tablet 0.25 MG PO (20:43)
[2021-03-20] MEDS: Mirtazapine 15 MG Tablet PO (20:43)
[2021-03-20] MEDS: Dronabinol 2.5 MG Capsule PO (20:44)
[2021-03-20 22:00] VITALS: BP 128/83; PULSE 107; RESP 20; TEMP 36.3; O2SAT 98
[2021-03-21] MEDS: Enoxaparin 40 MG/0.4 ML Syringe SC (06:21)
[2021-03-21 07:36] VITALS: BP 112/76; PULSE 107; RESP 16; TEMP 36.6; O2SAT 97
[2021-03-21 07:40] VITALS: O2SAT 94
[2021-03-21] MEDS: Aspirin E.C. 81 MG Tablet PO (08:12)
[2021-03-21] MEDS: Loperamide 2 MG Capsule PO (08:12)
[2021-03-21] MEDS: Pantoprazole Sodium 40 MG Tablet PO (08:12)
[2021-03-21] MEDS: Arthritis Pain Compound 60 CLICK TUBE TOPICAL ×2 (08:12→22:53)
[2021-03-21] MEDS: Amox/Clavulanate 875 MG Tablet PO ×2 (08:13→22:53)
[2021-03-21] MEDS: clonazePAM 0.5 MG Tablet 0.25 MG PO ×2 (08:14→20:08)
--- NOTE | 2021-03-21 10:03 | PN_ITS ---
Progress Note Afebrile since admission VSS - still with a resting tachycardia.....low 100's. Following exertion the HR went up to 135 today. O2 sat is 94% - 98% on 2 LPM this AM I&O - (1600 urine and 400 stool). He had 1 dose of Imodium this morning. Discussed with nursing - no problems that need addressed Reviewed the PT/OT/ST notes Medication list reviewed. Reviewed Dr. Gonzalez's suggestions. Currently on a bicarb drip and IV fluids. He denies CP, palpitations, lightheadedness, N/V. He slept well last night. He is not drowsy this AM and in fact he is very alert. He ambulated 75' today. Denies orthopnea. Rare cough. NAVARRO but not at rest. Appetite is improving. Aayush tells me that the ileostomy bag is drained only 3-4 times a d ay........recorded 400 yesterday. Denies N/V/abd pain. No lab today. Physical Exam Const alert, oriented x3 and no apparent distress Constitutional Narrative: Sitting in the WC in the therapy room. Good color in his face today. HR after sitting several minutes is still 120. General Appearance: cooperative HEENT HEENT Narrative: MM are a little dry. Eyes conjunctivae normal and no scleral icterus Neck no JVD Resp normal respiratory effort Resp Narrative: Very diminished on the R about 1[address] the posterior lung and also diminished anteriorly. No conversational dyspnea. Not tachypneic. No rales and no wheezes. Cardio regular rhythm, no murmurs, no rub and no gallops Rate: tachycardic GI normal to inspection, nondistended, normoactive bowel sounds, soft to palpation and non-tender GI Narrative: Has a lot of gas in the pouch today. Extremity no calf tenderness Extremity Narrative: He has edema in the R arm/hand. The IV is in the antecubital fossa and it is tender. Denies any pain in the arm. Skin General Skin Exam: no breakdown Rashes: no rashes Neuro oriented x3, CN's II-XII intact bilaterally, moves all extremities, no focal motor deficits and no sensory deficits noted Psych mental status grossly normal, thought process normal, cooperative and affect normal Psych Narrative: more alert, conversant and pleasant. Making jokes. Assessment & Plan Assessment/Plan (1) Physical debility: (2) Empyema lung: (3) Post covid-19 condition, unspecified: (4) Generalized weakness: (5) Severe protein-calorie malnutrition: (6) Acute renal failure: (7) Metabolic acidosis: (8) Hyperphosphatemia: (9) Iron deficiency: (10) Normochromic normocytic anemia: (11) Tachycardia: (12) Swelling of right upper extremity: PLAN: 1. PA and LAT CXR today. I suspect the pleural effusion on the R is increasing. This would pose a problem because he is intravascularly depleted and in ARF and things are improving with hydration. Can not diurese at this point. Will discuss with Dr. Gonzalez after I review the CXR. 2. Change the site of the IV.....he has no pain in the R arm or chest so I have a low suspicion of PE as the cause of the tachycardia......more likely than not it is due to deconditioning and infection. 3. CBC with diff, renal profile, ESR and CRP in the AM 4. continue the bicarb drip and the IV fluids for now. 5. Continue therapy. 6. More alert today with the decrease in the Klonopin for generalized anxiety with panic attacks. Appetite is improving with Remeron and the Dronabinol at HS. Visit Charges Inpatient E&M: 10262 Subs Hosp L2
--- NOTE | 2021-03-21 11:00 | RAD_ITS ---
History: hypoxia, hx of R chest empyema EXAMINATION/TECHNIQUE: XR Chest 2 Views: COMPARISON: March 16, 2021 FINDINGS: LINES/DEVICES: None. LUNGS: Emphysematous changes of the lungs again noted. Reticular densities throughout both lungs suggestive of chronic interstitial fibrosis. Blunting of the right lateral costophrenic sulcus may represent small effusion or pleural scarring. No pneumothorax. MEDIASTINUM AND CARDIOVASCULAR STRUCTURES: Cardiac silhouette not enlarged. Central airways and mediastinal contour are unremarkable. Moderate elevation of the right hemidiaphragm. BONES AND SOFT TISSUES: Unremarkable. RAD/Chest PA and Lateral IMPRESSION: Emphysematous changes of the lungs. Bilateral pulmonary densities suggestive of chronic interstitial lung disease. at 1123 Reported and signed by: Yuri Jane MD Electronically Signed: Yuri Jane MD at 11:22 EST Tel , Service support ,
--- NOTE | 2021-03-21 11:46 | WOUNDNOTE ---
Ostomy appliance changed. stoma remains beefy red and moist. stoma is well budded.peristomal skin is intact. cleansed skin with warm water. pat dry. applied a new flat 1 piece Coloplast appliance. pt tolerated well.
[2021-03-21] MEDS: DAKIN'S SOL HALF STRENGTH (=0.25%) 1 APPLIC TOPICAL ×2 (12:03→22:52)
[2021-03-21 19:19] VITALS: BP 120/84; PULSE 109; RESP 18; TEMP 36.9; O2SAT 97
[2021-03-21] MEDS: Dronabinol 2.5 MG Capsule PO (20:08)
[2021-03-21] MEDS: Atorvastatin Calcium 40 MG Tablet PO (22:52)
[2021-03-21] MEDS: Mirtazapine 15 MG Tablet PO (22:52)
[2021-03-22] MEDS: Enoxaparin 40 MG/0.4 ML Syringe SC (05:10)
[2021-03-22 08:41] VITALS: BP 117/75; PULSE 111; RESP 20; TEMP 36.3; O2SAT 97
[2021-03-22] MEDS: Aspirin E.C. 81 MG Tablet PO (08:42)
[2021-03-22] MEDS: clonazePAM 0.5 MG Tablet 0.25 MG PO ×2 (08:42→20:30)
[2021-03-22] MEDS: Arthritis Pain Compound 60 CLICK TUBE TOPICAL ×2 (08:43→20:31)
[2021-03-22] MEDS: Pantoprazole Sodium 40 MG Tablet PO (08:43)
[2021-03-22] MEDS: Amox/Clavulanate 875 MG Tablet PO ×2 (08:43→20:29)
[2021-03-22 08:55] LABS: Erythrocyte Sedimentation Rate 35 mm/hr (0-20)
[2021-03-22 08:59] LABS: Absolute Neutrophil Count 9.7 X10^3/uL (2.0-7.7); Basophil# 0.09 X10^3/uL; Basophil% 0.7 % (0-1); Eosinophil# 0.57 X10^3/uL; Eosinophils% 4.3 % (0-5); Hematocrit 28.4 % (40-54); Hemoglobin 9.6 g/dL (13.0-16.5); Lymphocyte % 13.7 % (19-41); Mean Corp Hgb Conc 33.8 g/dL (32-36); Mean Corpuscular Hgb 31.8 pg (27.0-32.0); Mean Platelet Vol. 9.4 fl (6.2-12.0); Monocyte# 0.78 X10^3/uL; Monocyte% 5.9 % (0-10); NRBC Flagged by Analyzer 0 % (0-5); Neutrophil # 9.72 X10^3/uL (2.7-7.7); Neutrophil % 74.3 % (47-70); POSITIVE MORPHOLOGY YES; Platelet Count 318 K/mm3 (150-450); RBC Distribution Width CV 14.5 % (11.6-14.6); RBC Distribution Width SD 49.7 fl (35.1-43.9); Red Blood Count 3.02 M/mm3 (4.6-6.2); White Blood Count 13.1 K/mm3 (4.4-11.0)
[2021-03-22 09:00] LABS: Differential Indicated SCAN CRITERIA MET
[2021-03-22 09:30] LABS: Albumin, Serum 2.2 g/dL (3.2-5.0); BUN 12 mg/dL (7-18); BUN/Creat Ratio 7.7 RATIO (10-20); Calcium,Total 9.3 mg/dL (8.5-10.1); Chloride 105 mmol/L (98-107); Creatinine, Serum 1.55 mg/dL (0.70-1.30); EST Glomerular Filtration Rate 50 mL/min (>60); Est Glom Filt Rate - Afr Amer 60 mL/min (>60); Estimated Creatinine Clearance 51.53 ml/min; Glucose 119 mg/dL (74-106); Phosphorus 2.9 mg/dL (2.5-4.9); Sodium Level 139 mmol/L (136-145); Thyroid Stim Hormone (TSH) 1.69 uIU/mL (0.358-3.74)
--- NOTE | 2021-03-22 09:52 | SP.MBSS_ITS ---
Modified Barium Swallow - Patient Information Study Date: 03/22/21 Study Time: 09:00 Direct Billable Minutes: 120 Total Minutes procedure & reportin Diagnosis: dysphagia Referring Physician: Ita Hunter Reason for Referral: Repeat MBSS recommended for objective assessment of swallow function under fluoroscopy following +2 weeks of dysphagia intervention to determine appropriateness for diet texture upgrade and/or elimination of compensatory L head turn strategy. MBS is necessary to improve the specificity of dysphagia interventions provided to achieve maximal benefit and optimal outcome from skilled ST services. Medical History: Aayush Ross is a 55 YO M with a past medical history of obesity, hypertension and hyperlipidemia who presented to the [facility] ED on 01/27/21 with COVID symptoms x 12 days. He had not been vaccinated. He was mottled at presentation, immediately intubated in the ED and transferred to ICU. He had a protracted hospital admission at [facility] with many complications, including a cecal perforation and Ex Lap with R hemicolectomy on 02/04/21. He developed septic shock and was placed on pressors. He was taken back to surgery on 02/12/2021 for fascial dehiscence with small bowel evisceration. There was also a leak from the ileocolic anastomosis. Laparotomy with resection of ileocolic anastomosis and creation of end ileostomy and mucous fistula was performed. On 02/14/21 he developed a R tension pneumothorax requiring chest tube placement. Persistent R lung opacities prompted a CT scan of the chest on 02/21/21. CT chest showed a dense right middle lobe and right lower lobe pneumonia or atelectasis with a moderate sized organized R side hydropneumothorax with multiples loculations containing gas including a 7 cm loculation anteriorly with an air fluid level worrisome for an empyema. He underwent a CT directed drainage of the fluid collection by the radiologist on 02/21/21. It was decided that he should be transferred to a tertiary facility to be evaluated by a thoracic surgeon and on 02/22/21 he was transferred to [facility]. This patient was being treated for dysphagia at [facility] prior to [facility] transfer. While at [facility] the patient required a corpak NG tube. Pt was made NPO per speech therapy on 03/05/21. MBS was completed 03/06/21 revealing oropharyngeal dysphagia w/ aspiration of thin and mildly thickened liquid, poor superior movement of thyroid cartilage, decreased anterior excursion and partial epiglottic inversion. A left head turn was effective in decreasing aspiration and improving pharyngeal clearance. A pureed texture and thin liquid diet was recommended w/ the following aspiration precautions: small bites/sips, slow rate, upright 90 degrees for po intake, head turn to left, supervision/assistance during meals. The patient was admitted to [facility] Inpatient Rehab Unit on 03/15/2021 w/ orders for a minced and moist texture/thin liquid diet w/ the above listed aspiration precautions in place. Respiratory Status: oxygenating on 1L/min O2 via nasal cannula, SOB w/ exertion, lung sounds reported to be clear per most recent nursing assessment Current Diet Ordered: Minced & Moist Texture/Thin Liquid (IDDSI: 5/) Dentition: WNL Mental Status: WNL - Penetration-Aspiration Scale Penetration-Aspiration Scale: OBJECTIVE ASSESSMENT OF SWALLOW FUNCTION (QUANTITATIVE ? PER TRIAL): PENETRATION / ASPIRATION SCALE (SCHMIDT): 1 = does not enter airway 2 = enters airway/above vocal folds/ejected 3 = enters airway/above vocal folds/not ejected 4 = enters airway/contacts vocal folds/ejected 5 = enters airway/contacts vocal folds/not ejected 6 = enters airway/below vocal folds/ejected 7 = enters airway/below vocal folds/not ejected despite effort 8 = enters airway/below vocal folds/no effort - Penetration-Aspiration Scale Score Thin Liquid via teaspoon Result: 1= does not enter airway Thin Liquid via teaspoon Trial 2 Result: 3= enters airways/above vocal folds/not ejected Thin Liquid via small single sip from cup Result: 1= does not enter airway Thin Liquid via single sip from straw Result: 1= does not enter airway Thin Liquid via sequential sips from cup Result: 1= does not enter airway Pudding via teaspoon Result: 1= does not enter airway Cookie Result: 1= does not enter airway Thin Liquid via sequential sips from cup Trial 2 Result: 1= does not enter airway Thin Liquid via single sip from straw Left head turn Result: 1= does not enter airway - Oral Phase Labial Seal: Interlabial escape, no progression to anterior lip Tongue Control During Bolus Hold: Cohesive bolus between tongue to palatal seal Bolus Preparation/Mastication: Slow prolonged chewing/mashing with complete recollection Bolus Transport/Lingual Motion: Slowed tongue motion Oral Residue: Residue collection on oral structures - Pharyngeal Phase Initiation of Pharyngeal Swallow: Bolus head in valleculae Soft Palate Elevation: No bolus between soft palate and pharyngeal wall Laryngeal Elevation: Partial superior movement thyroid cart/partial apprx aryt- epig petiole Anterior Hyoid Excursion: Partial anterior movement Epiglottic Movement: Partial inversion Laryngeal Vestibule Closure at Height of Swallow: Incomplete; narrow column of air/contrast in laryngeal vestibule Pharyngeal Stripping Wave: Present - diminished Pharyngoesophageal Segment Opening: Complete distension and complete duration; no obstruction of flow Tongue Base Retraction: Trace column of contrast between tongue base & post. pharyngeal wall Pharyngeal Residue: Collection of residue within or on pharyngeal structures - Esophageal Phase Esophageal Clearance: Esophageal retention - Diagnosis/Impression Diagnosis: mild oropharyngeal dysphagia (R13.12) Impression: This patient's swallow function it characterized by: * mildly prolonged mastication * slowed lingual motion for A-P bolus transportation w/ mild oral residue retention on the oral tongue * bolus location upon swallow onset was WFL, reaching the valleculae at worst prior to onset * reduced anterior hyoid excursion/thyrohyoid elevation, contributing to incomplete epiglottic inversion and resulting in pharyngeal residue retention w/in the valleculae, aryepiglottic folds and pyriform sinuses * mildly decreased tone base retraction and diminished pharyngeal contraction further contributed to pharyngeal residue retention * a double swallow was effective to * R and L head turns were trialed under fluoroscopy * no benefit from R head turn * L head turn was effective to reduce but not eliminate post-prandial pharyngeal residue retention, but was actually shown to be LESS EFFECTIVE at clearance compared to a second swallow WITHOUT L head turn * laryngeal vestibule penetration occurred 1x w/ thin liquid via teaspoon, penetration was above the vocal folds w/ only trace retention preset w/ swallow completion Diet Recommended: * Soft & Bite Sized Texture (IDDSI: 6) * Thin Liquid (IDDSI: 0) Compensatory Strategies Recommended: * Small bites * Chew thoroughly * Small sips * Double swallow to clear pharyngeal residue * Clear throat and re-swallow at reasonable intervals throughout meals to maintain laryngeal vestibule clearance * Sit upright w/ hip flexion at 90 degrees during PO intake * Remain seated upright for 30 minutes after PO intake (GERD precautions) Additional Speech Therapy Services Recommended: Yes Patient requires intensive skilled speech-language intervention targeting: * diet texture management * compensatory strategy education * oropharyngeal strengthening exercises to facilitate improved tongue base retraction, pharyngeal contraction, anterior hyoid elevation/hyolaryngeal excursion and epiglottic inversion Education: * Images were reviewed w/ the patient following MBS conclusion * Extended time spent providing education re: anatomy/physiology of swallow function and of deficits identified secondary protracted illness necessitating multiple intubations * Results, recommendation and plan of care going forward were discussed - OK for patient to discontinue use of L head turn when swallowing, will initiate soft & bite sized texture diet on 03/23/21 w/ a meal analysis under ST supervision * The patient verbalized understanding and agreement with the education and recommendations provided - Status Active ST Patient: Active - Contact Information [facility] Speech Therapy:: Gretel Lim M.A., CCC-SUPERVISOR STAVE CUTTING [address] [place] [place] [address] [phone] [email or web address]
--- NOTE | 2021-03-22 10:05 | PN_ITS ---
Progress Note Afebrile VSS -Still with tachycardia - at rest in the 100-110 range and with exertion up to 130. Blood pressure is within normal limits. Oxygen saturation on 1 L/min today is 98%. I&O for 03/21/21 3770/1575 Balance is 2195. For the past 2 days the fluid balance is + 4276. Good oral intake. Stool output yesterday was 225 cc. Discussed with nursing - no problems that need addressed Reviewed the PT/OT/ST notes Medication list reviewed. All lab was personally reviewed. White blood cell count is down to 13.1 with 74.3% neutrophils and 1.1% immature granulocytes. Hemoglobin is 9.6, down from 10.3 however fluid balance is +4280 over the past few days and the drop is likely due to dilution. Sed rate is 35 and the CRP is 16.2. The BUN is 12 and the creatinine is now down to 1.55. Bicarb is now 27. Potassium is low at 3. Phosphorus is now normal at 2.9. Calcium corrected for hypoalbuminemia is 10.74 which is elevated. TSH is normal at 169. IV fluids and the bicarb drip have been stopped by Dr. Gonzalez. Physical Exam Const alert and no apparent distress General Appearance: cooperative Chest Chest Narrative: Very diminished in the R base still. No crackles and no wheezes. Can not exclude pleural effusion on the CXR but the BNP is only 32 and he is AF with a decreasing leukocytosis so will continue to monitor. Chest: symmetrical chest wall rise Cardio regular rhythm, no rub and no gallops Rate: tachycardic GI normal to inspection, nondistended, normoactive bowel sounds, soft to palpation and non-tender GI Narrative: mushy brown/green stool in the ostomy bag Extremity no calf tenderness and no pedal edema Extremity Narrative: The RUE is sore at the elbow and distally. It is swollen and there is erythema in the antecubital fossa and extends distally. The Vein is ropey and tender. Suspect he has a Superficial DVT. Skin General Skin Exam: no breakdown Rashes: no rashes Psych affect normal Assessment & Plan Assessment/Plan (1) Hypokalemia: PLAN: supplement the potassium and recheck in the AM (2) Hypercalcemia: PLAN: etiology? No FH or personal hx of kidney stones. No hx of malignancy. Not on Vitamin D supplement or calcium supplement. PTH is low. immobility? Will check a Vitamin D level and a repeat calcium and albumin in the AM. If the Vitamin D level is low or normal then we can r/o vitamin D intoxication. Pt is asymptomatic and now that he is active in therapy 3 hours a day it should be coming down if it is due to immobility. If it does not will need a PTHrP, SPE, UPE - can be done as an OP since he is asymptomatic. (3) Swelling of right upper extremity: PLAN: Suspect this is due to superficial thrombophlebitis and not infection. Will check UA venous ultrasound of the right upper extremity and apply warm compresses. (4) Tachycardia: PLAN: BNP is 32. TSH is normal. Due to deconditioning? due to POST COVID cardiac complication? With the hypercalcemia and the tachycardia he could have adrenal dysfunction. will check a cortisol in the AM (5) Severe protein-calorie malnutrition: PLAN: Appetite has improved. Will continue with supplements ordered by the cylinder block hole reliner (6) Generalized weakness: PLAN: Continue therapy (7) Physical debility: (8) Acute renal failure: PLAN: Improved with hydration. He did have a high Vanco trough at 29 while at [facility] - continue to monitor now that he is off IV fluids and bicarb drip. Visit Charges Inpatient E&M: 87001 Subs Hosp L2
[2021-03-22 10:57] LABS: BNP,B-Type NATRIURETIC PEPTIDE 32.6 pg/mL (0-100)
[2021-03-22 10:59] LABS: Troponin-I HS 9 pg/mL (3.0-78.0)
[2021-03-22 13:46] VITALS: O2SAT 98
[2021-03-22] MEDS: DAKIN'S SOL HALF STRENGTH (=0.25%) 1 APPLIC TOPICAL ×2 (14:50→20:29)
[2021-03-22] MEDS: Carvedilol 3.125 MG TABLET PO ×2 (14:52→20:30)
--- NOTE | 2021-03-22 16:46 | VDUE_ITS ---
Reason For Study: Swelling, Pain Right Proximal Left Proximal Right jugular vein is spontaneous, widely Left subclavian vein is spontaneous, widely patent, phasic, with no intraluminal patent, phasic, with no intraluminal echogenicity noted. echogenicity noted. Right subclavian vein is spontaneous, widely patent, phasic, with no intraluminal echogenicity noted. Right Lower Arm Right radial vein is compressible. Right ulnar vein is compressible. Right Arm Right axillary vein is spontaneous, patent, phasic, competent, compressible and demonstrates augmentation. Right brachial vein is compressible. Rt CephalicV is dilated and non compressible at elbow consistent with acute SVT, compressible in the upper arm and forearm. Right basilic vein is compressible. VL/Venous Duplex US, Unilateral Interpretation Summary Acute superficial thrombophlebitis right cephalic vein at the olecranon. Patent and compressible both in the upper arm and forearm. No evidence for acute deep venous thrombosis right upper extremity Normal flow patterns left subclavian vein Ordering Physician: Ita Hunter Referring Physician: Doroteo Camacho Performed By: Cynthia Wadsworth, YURI, RVT ?
[2021-03-22 16:47] VITALS: BP 132/89; PULSE 102
[2021-03-22] MEDS: Potassium Chloride Oral Tablet 20 MEQ 40 MEQ PO (18:31)
[2021-03-22 19:45] VITALS: BP 144/94; PULSE 100; RESP 18; TEMP 36.6; O2SAT 96
[2021-03-22] MEDS: Mirtazapine 15 MG Tablet PO (20:29)
[2021-03-22] MEDS: Atorvastatin Calcium 40 MG Tablet PO (20:29)
[2021-03-22] MEDS: Dronabinol 2.5 MG Capsule PO (20:30)
[2021-03-22 21:15] VITALS: BP 119/74; PULSE 108
[2021-03-23 06:24] LABS: Potassium 3.5 mmol/L (3.5-5.1)
[2021-03-23] MEDS: Enoxaparin 40 MG/0.4 ML Syringe SC (06:25)
[2021-03-23 07:34] VITALS: O2SAT 98
[2021-03-23] MEDS: clonazePAM 0.5 MG Tablet 0.25 MG PO ×2 (08:18→20:41)
[2021-03-23] MEDS: Aspirin E.C. 81 MG Tablet PO (08:18)
[2021-03-23] MEDS: Amox/Clavulanate 875 MG Tablet PO ×2 (08:19→21:36)
[2021-03-23] MEDS: Arthritis Pain Compound 60 CLICK TUBE TOPICAL ×2 (08:19→21:37)
[2021-03-23] MEDS: Carvedilol 3.125 MG TABLET PO ×2 (08:20→21:36)
[2021-03-23] MEDS: Pantoprazole Sodium 40 MG Tablet PO (08:20)
[2021-03-23] MEDS: DAKIN'S SOL HALF STRENGTH (=0.25%) 1 APPLIC TOPICAL ×2 (08:26→21:38)
[2021-03-23 08:43] LABS: Vitamin D,25 Hydroxy 31.4 ng/mL
[2021-03-23 09:02] VITALS: BP 121/82; PULSE 100; RESP 16; TEMP 36.6; O2SAT 98
--- NOTE | 2021-03-23 09:19 | PCM.PN.BLA ---
Progress Note Afebrile VSS - Blood pressure did not drop significantly today with going from lying to standing. The HR increased by 15 beats. Maintaining appropriate oxygen saturation on RA Oral intake for 12-21 was 1410. I&O - 1410/1250 with a balance of 160. ostomy OP was 175. The balance overnight is +60. Discussed with nursing - no problems that need addressed Reviewed the PT/OT/ST notes Medication list reviewed. All a.m. lab was personally reviewed. Potassium is low normal today at 3.5. Ionized calcium is pending. 25 hydroxy vitamin D is sufficient at 31.4 and not toxic. A.m. cortisol is elevated at 16.1 not unusual for patient with this degree of disability, infection and deconditioning. I reviewed the results of the MBS yesterday and he was diagnosed with mild oral pharyngeal dysphagia and is currently on a soft and bite sized texture with thin liquids. The RUE venous US shows a superficial thrombophlebitis and no DVT of the RUE. It is still sore but the erythema is less and the swelling is coming down. He denies CP, cough, calf pain, dysuria, N/V. He is eating well now and he continues to sleep well. He is very happy with his progress. Physical Exam Const alert, oriented x3 and no apparent distress Constitutional Narrative: Good color in his face now and he is no longer pale. Upbeat affect and felling positive. Cooperative and motivated to work hard so that he can get home. General Appearance: cooperative Eyes conjunctivae normal and no scleral icterus Resp Resp Narrative: Diminished, shy in the R base. He is not SOB lying flat. HR and RR increasing with exertion but the numbers are lower than they have been and he does not get as winded. Cardio regular rhythm, no murmurs and no gallops Cardio Narrative: occasional premature beat Jugular Venous Distention: Negative for JVD Rate: tachycardic GI normal to inspection, nondistended, normoactive bowel sounds, soft to palpation and non-tender GI Narrative: dark brown liquid and a small amount of greenish mushy stool in the bag. No diarrhea. Extremity no calf tenderness and no pedal edema Skin General Skin Exam: no breakdown Rashes: no rashes Wound Narrative: The abdominal wound is filling in and peng. The base is dry. Currently being dressed with W-D with Dakins Assessment & Plan Assessment/Plan (1) Hypercalcemia: (2) Superficial thrombophlebitis of right upper extremity: (3) Tachycardia: (4) Post covid-19 condition, unspecified: (5) Anxiety disorder due to general medical condition with panic attack: (6) Iron deficiency: (7) Generalized weakness: (8) Physical debility: (9) Depression: (10) Acute renal failure: PLAN: 1. await the results of the ionized calcium - no potassium supplements or Vitamin D for now. 2. recheck CBC with diff and a BMP Friday 3. He knows to continue good water intake and he tells me that he is doing this. 4. Continue the Klonopin for now.......consider decreasing to once a day at bedtime next week. 5. Continue therapy Visit Charges Inpatient E&M: 33238 Subs Hosp L2
[2021-03-23 10:00] VITALS: BP 107/71; BP 113/71; BP 113/77; PULSE 105; PULSE 108; PULSE 115
[2021-03-23 20:40] VITALS: PULSE 103; RESP 18; O2SAT 97
[2021-03-23] MEDS: Dronabinol 2.5 MG Capsule PO (20:41)
[2021-03-23 20:45] VITALS: BP 114/84; PULSE 103; RESP 18; TEMP 36.6; O2SAT 97
[2021-03-23] MEDS: Atorvastatin Calcium 40 MG Tablet PO (21:36)
[2021-03-23] MEDS: Mirtazapine 15 MG Tablet PO (21:36)
[2021-03-24 06:00] VITALS: BP 121/79; BP 121/86; BP 130/84; PULSE 100; PULSE 107; PULSE 113
[2021-03-24] MEDS: Enoxaparin 40 MG/0.4 ML Syringe SC (06:07)
[2021-03-24] MEDS: Acetaminophen 325 MG Tablet 650 MG PO (06:11)
[2021-03-24] MEDS: clonazePAM 0.5 MG Tablet 0.25 MG PO ×2 (08:08→19:58)
[2021-03-24] MEDS: Aspirin E.C. 81 MG Tablet PO (08:09)
[2021-03-24] MEDS: Arthritis Pain Compound 60 CLICK TUBE TOPICAL ×2 (08:09→21:18)
[2021-03-24] MEDS: Pantoprazole Sodium 40 MG Tablet PO (08:09)
[2021-03-24] MEDS: Amox/Clavulanate 875 MG Tablet PO ×2 (08:09→21:18)
[2021-03-24] MEDS: Carvedilol 3.125 MG TABLET PO ×2 (08:09→21:18)
[2021-03-24 08:15] VITALS: BP 132/70; PULSE 78; RESP 16; TEMP 36.7; O2SAT 93
[2021-03-24 08:20] VITALS: O2SAT 93
[2021-03-24 12:05] VITALS: O2SAT 92
[2021-03-24] MEDS: DAKIN'S SOL HALF STRENGTH (=0.25%) 1 APPLIC TOPICAL ×2 (13:04→21:17)
[2021-03-24 19:49] VITALS: BP 113/72; PULSE 80; RESP 17; TEMP 36.2; O2SAT 97
[2021-03-24] MEDS: Dronabinol 2.5 MG Capsule PO (19:58)
[2021-03-24] MEDS: Mirtazapine 15 MG Tablet PO (21:17)
[2021-03-24] MEDS: Atorvastatin Calcium 40 MG Tablet PO (21:17)
[2021-03-25 06:42] VITALS: BP 108/73; BP 114/80; BP 122/84; PULSE 106; PULSE 114; PULSE 99
[2021-03-25] MEDS: Enoxaparin 40 MG/0.4 ML Syringe SC (07:05)
[2021-03-25 07:30] VITALS: O2SAT 93
[2021-03-25] MEDS: clonazePAM 0.5 MG Tablet 0.25 MG PO ×2 (07:38→20:18)
[2021-03-25] MEDS: Amox/Clavulanate 875 MG Tablet PO ×2 (07:39→21:47)
[2021-03-25] MEDS: Carvedilol 3.125 MG TABLET PO ×2 (07:39→21:47)
[2021-03-25] MEDS: Pantoprazole Sodium 40 MG Tablet PO (07:39)
[2021-03-25] MEDS: Aspirin E.C. 81 MG Tablet PO (07:40)
[2021-03-25] MEDS: Arthritis Pain Compound 60 CLICK TUBE TOPICAL ×2 (07:40→21:47)
[2021-03-25 08:05] VITALS: PULSE 99; RESP 18; TEMP 36.2; O2SAT 93
[2021-03-25] MEDS: DAKIN'S SOL HALF STRENGTH (=0.25%) 1 APPLIC TOPICAL ×2 (09:50→21:47)
[2021-03-25 18:57] VITALS: BP 114/79; PULSE 93; RESP 18; TEMP 36.2; O2SAT 97
[2021-03-25] MEDS: Dronabinol 2.5 MG Capsule PO (20:17)
[2021-03-25] MEDS: Mirtazapine 15 MG Tablet PO (21:46)
[2021-03-25] MEDS: Atorvastatin Calcium 40 MG Tablet PO (21:47)
[2021-03-26 05:40] VITALS: BP 100/71; BP 111/75; BP 114/71; PULSE 108; PULSE 119; PULSE 95
[2021-03-26] MEDS: Enoxaparin 40 MG/0.4 ML Syringe SC (05:57)
[2021-03-26 07:32] LABS: Absolute Lymphocyte Count 1.93 X10^3/uL (0.83-4.51); Absolute Neutrophil Count 11.4 X10^3/uL (2.0-7.7); Basophil# 0.12 X10^3/uL; Basophil% 0.8 % (0-1); Eosinophil# 0.76 X10^3/uL; Hemoglobin 11.4 g/dL (13.0-16.5); Lymphocyte # 1.93 X10^3/ul (0.83-4.51); Lymphocyte % 12.7 % (19-41); Mean Corp Hgb Conc 32.6 g/dL (32-36); Mean Corpuscular Hgb 31.3 pg (27.0-32.0); Mean Corpuscular Volume 96.2 fL (80-94); Mean Platelet Vol. 8.8 fl (6.2-12.0); Monocyte# 0.76 X10^3/uL; NRBC Flagged by Analyzer 0 % (0-5); Platelet Count 388 K/mm3 (150-450); RBC Distribution Width CV 14.5 % (11.6-14.6); RBC Distribution Width SD 50.5 fl (35.1-43.9); Red Blood Count 3.64 M/mm3 (4.6-6.2); White Blood Count 15.2 K/mm3 (4.4-11.0)
[2021-03-26 07:41] VITALS: BP 100/71; PULSE 97; RESP 16; TEMP 36.4; O2SAT 92
[2021-03-26 08:07] LABS: Albumin, Serum 2.8 g/dL (3.2-5.0); Anion Gap 8 (5-15); BUN 6 mg/dL (7-18); BUN/Creat Ratio 5.1 RATIO (10-20); Calcium,Total 9.6 mg/dL (8.5-10.1); Chloride 105 mmol/L (98-107); Creatinine, Serum 1.18 mg/dL (0.70-1.30); EST Glomerular Filtration Rate 68 mL/min (>60); Est Glom Filt Rate - Afr Amer 83 mL/min (>60); Estimated Creatinine Clearance 67.69 ml/min; Glucose 97 mg/dL (74-106); Sodium Level 139 mmol/L (136-145)
[2021-03-26] MEDS: Amox/Clavulanate 875 MG Tablet PO ×2 (08:13→21:19)
[2021-03-26] MEDS: Carvedilol 3.125 MG TABLET PO ×2 (08:13→21:20)
[2021-03-26] MEDS: Aspirin E.C. 81 MG Tablet PO (08:13)
[2021-03-26] MEDS: Pantoprazole Sodium 40 MG Tablet PO (08:13)
[2021-03-26] MEDS: clonazePAM 0.5 MG Tablet 0.25 MG PO ×2 (08:14→20:39)
[2021-03-26] MEDS: Arthritis Pain Compound 60 CLICK TUBE TOPICAL (08:20)
--- NOTE | 2021-03-26 10:46 | PN_ITS ---
Progress Note Aayush was seen on team rounds today. His Carmella was present in the room. Afebrile VSS Maintaining appropriate oxygen saturation on RA-92% on room air today. Supplemental oxygen is used when he is exerting himself. Oral intake is good Discussed with nursing - no problems that need addressed Reviewed the PT/OT/ST notes - Will not need ST at [place]. He is doing very well with therapy but, he continues to fatigue easily and requires more assistance as the day progresses. Medication list reviewed. All lab from today was personally reviewed. White blood count remains elevated at 15.2 with 75% neutrophils and 1.5% immature granulocytes. Potassium is within normal limits at 4. Serum bicarb is 26 and the BUN is 6 with a creatinine of 1.18. Calcium corrected for hypoalbuminemia it today is 10.56 which is elevated. Ionized calcium is still pending. He has been up and walking and doing 3 hours of therapy daily so I doubt the hypercalcemia is due to immobility. PTH was low. No hx of kidney stones. Denies nausea, abd pain, CP, palpitations, dysuria. He does c/o fatigue with exertion. Physical Exam Const alert, oriented x3 and no apparent distress Constitutional Narrative: looks very alert and is jovial and participating in t he conversations at the bedside. General Appearance: cooperative and comfortable HEENT normocephalic HEENT Narrative: Mucous membranes are little dry Eyes conjunctivae normal and no scleral icterus Neck No nuchal rigidity, supple and no JVD Resp no use of accessory muscles and clear to auscultation bilaterally Resp Narrative: very diminished still in the R base. Effort and Inspection: able to speak in complete sentences Cardio Cardio Narrative: HR has come down and he has less NAVARRO now. tilt test was negative today and the HR was 87 when standing and 80 when lying down. GI normal to inspection, nondistended, normoactive bowel sounds, soft to palpation and non-tender GI Narrative: No guarding with palpation. I did not examine the wound today but, will examine in the AM when the dressing is changed. Extremity no calf tenderness and no pedal edema Extremity Narrative: the swelling in the RUE and the redness due to superficial vein thrombosis is much improved. Skin Rashes: no rashes Psych affect normal Assessment & Plan Assessment/Plan (1) Physical debility: PLAN: Continue therapy. DC date set for this Friday unless we have an unforeseen complication this week. (2) Post covid-19 condition, unspecified: (3) Superficial thrombophlebitis of right upper extremity: PLAN: much improved with warm compresses and removal of the IV. (4) Hypercalcemia: PLAN: D/W endo. PTH is low so endocrine dysfunction is not the cause. Doubt immobility is the cause of the persistent hypercalcemia since he is now mobile and doing 3 hours of therapy daily. Occult malignancy is a consideration. Will check a PTH related peptide and a PSA. Await the results of the ionized calcium. Globulins are increased......MM is a consideration also. Full work up will have to be done as an OP. I suspect it is the hypercalcemia that is causing the diuresis. Now that he has an appetite and is feeling better he is able to keep up with the fluid losses........may need to consider Pamidronate if he can not keep up with the urine losses. (5) Anxiety disorder due to general medical condition with panic attack: (6) Iron deficiency: (7) Generalized weakness: (8) Depression: (9) Empyema lung: (10) Chronic respiratory failure with hypoxia: (11) Normochromic normocytic anemia: Visit Charges Inpatient E&M: 70495 Subs Hosp L2
--- NOTE | 2021-03-26 14:12 | CASEMGMT ---
Social Work IDT met with patient and for Team meeting. Discussed patient's progress in PT/OT/ST and nursing. Pt progressing well and requesting to DC home. Explained [facility] 04/02. Pt and IDT agreeable to DC 03/31. is able to take FMLA to care for pt at home. Educated to [facility] vs OP, pt and agreeable to outpatient at [facility] PT/OT/ST, and wound center. Nursing to begin wound care teaching with pt and and will order supplies for DC. Pt has O2 set up at home - no changes to liter flow. Pt requesting FWW. [place] [facility] [place] pt's room prior to DC. Plan: DC home with 03/31, [facility] PT/OT/ST, wound center and FWW Maribel Dalal, GRAIN MERCHANDISING MANAGER WAITER/WAITRESS INFORMAL
[2021-03-26] MEDS: DAKIN'S SOL HALF STRENGTH (=0.25%) 1 APPLIC TOPICAL ×2 (15:15→21:20)
--- NOTE | 2021-03-26 16:11 | CHAPLAIN ---
Type of Pastoral Visit _x__ Initial Visit ___ Follow-up Visit ___ On-call Visit ___ General Patient Visit ___ Spiritual Assessment ___ Family Conference ___ Bereavement ___ Rapid Response ___ Code Blue ___ Other (describe below) Pastoral Care Referral From _x__ Patient ___ Family ___ Nurse ___ Physician ___ Slitter And Rewinder ___ Liquid Center Assembler ___ Other (describe below) Sacrament/Intervention _x__ Active listening ___ Anointing ___ Religious ___ Bereavement ___ Communion ___ Lisha exploration ___ ___ Life review _x__ Prayer ___ Reconciliation ___ Sacrament of Sick _x__ Supportive presence ___ Wedding ___ Other (describe below) Pastoral Comments patient gets tearful when he talks about his hope of going home on Friday after 8 weeks in the hospital; pt is missing his family; pt has good support from his work place and states that family and work are his joys in life; pt is of the Spiritism lisha and welcomes prayer for his recovery
[2021-03-26 20:40] VITALS: BP 124/83; PULSE 89; RESP 16; TEMP 36.6; O2SAT 99
[2021-03-26] MEDS: Dronabinol 2.5 MG Capsule PO (20:40)
[2021-03-26] MEDS: Atorvastatin Calcium 40 MG Tablet PO (21:19)
[2021-03-26] MEDS: Mirtazapine 15 MG Tablet PO (21:20)
[2021-03-27] MEDS: Enoxaparin 40 MG/0.4 ML Syringe SC (06:02)
[2021-03-27 06:46] VITALS: BP 114/64; BP 117/62; BP 122/70; PULSE 102; PULSE 114; PULSE 99
[2021-03-27 07:45] VITALS: O2SAT 93
[2021-03-27 08:03] VITALS: BP 117/62; PULSE 99; RESP 19; TEMP 36.2; O2SAT 93
[2021-03-27] MEDS: Arthritis Pain Compound 60 CLICK TUBE TOPICAL (08:04)
[2021-03-27] MEDS: Amox/Clavulanate 875 MG Tablet PO ×2 (08:04→21:46)
[2021-03-27] MEDS: Aspirin E.C. 81 MG Tablet PO (08:05)
[2021-03-27] MEDS: Pantoprazole Sodium 40 MG Tablet PO (08:05)
[2021-03-27] MEDS: Carvedilol 3.125 MG TABLET PO ×2 (08:05→21:46)
[2021-03-27] MEDS: clonazePAM 0.5 MG Tablet 0.25 MG PO ×2 (08:07→21:37)
[2021-03-27 12:44] VITALS: O2SAT 97
--- NOTE | 2021-03-27 13:14 | WOUNDNOTE ---
Pt is currently working with therapy in the room. ostomy appliance emptied for approx 125cc's liquid brown stool. plan to change the ostomy appliance and dressing with tomorrow at 1400. has observed the dressing change and appliance change a few times already. had started teaching with prior to patient being transferred on the acute care side of the hospital. Pt denies further needs or concerns at this time. therapy and nursing aware of teaching time tomorrow.
[2021-03-27] MEDS: DAKIN'S SOL HALF STRENGTH (=0.25%) 1 APPLIC TOPICAL ×2 (14:05→22:14)
[2021-03-27] MEDS: Dronabinol 2.5 MG Capsule PO (21:37)
[2021-03-27 21:40] VITALS: BP 124/86; PULSE 86; RESP 14; TEMP 36.3; O2SAT 99
[2021-03-27] MEDS: Atorvastatin Calcium 40 MG Tablet PO (21:46)
[2021-03-27] MEDS: Mirtazapine 15 MG Tablet PO (21:47)
[2021-03-28 06:00] VITALS: BP 110/79; BP 115/75; BP 117/78; PULSE 106; PULSE 99
[2021-03-28] MEDS: Enoxaparin 40 MG/0.4 ML Syringe SC (06:51)
[2021-03-28] MEDS: Carvedilol 3.125 MG TABLET PO ×2 (08:16→22:14)
[2021-03-28] MEDS: Aspirin E.C. 81 MG Tablet PO (08:16)
[2021-03-28] MEDS: Pantoprazole Sodium 40 MG Tablet PO (08:16)
[2021-03-28] MEDS: Amox/Clavulanate 875 MG Tablet PO ×2 (08:17→22:14)
[2021-03-28] MEDS: clonazePAM 0.5 MG Tablet 0.25 MG PO ×2 (08:18→19:55)
[2021-03-28 10:00] VITALS: BP 115/81; PULSE 96; RESP 20; TEMP 36.6; O2SAT 100
--- NOTE | 2021-03-28 12:08 | CASEMGMT ---
Social Work PT spoke with pt and recommending HHC vs outpatient. Pt prefers HHC as well - [facility]. Referral made to [facility] for PT/OT/ST/SN. Updated . Cancelled [facility] appts. Updated DC. Confirmed with [employer] that FWW will be delivered 03/30 to pt's room. Plan: DC home with with [facility] PT/OT/ST/SN Maribel Dalal, NAYELI MAOW
--- NOTE | 2021-03-28 14:25 | WOUNDNOTE ---
Changed ostomy appliance and changed dressing with . there was some mild peristomal irritation noted. stoma is beefy red and well budded. cleansed skin with warm water. pat dry. lightly dusted with stoma paste. applied a new flat 2 piece Lisa appliance. pt and prefer to use the [employer] appliances. will order supplies through [facility] for patient. Pt states he will have home health at home as well. states she feels comfortable with ostomy appliance changes. would recommend changing the appliance twice a week. gloves changed. removed the dressing from the midline wound. there was minimal drainage noted. wound healing well. there is one suture noted in the central wound bed. wounnd cleansed with soap and water. pat dry. applied a Dakins moistened gauze dressing and covered with dry dressing. secured with tape. the mucous fistula was cleansed with soap and water. pat dry. applied a dry dressing. pt and very appreciative of care. Pt and deny questions. will check again before discharge to be sure there are no further questions or concerns.
--- NOTE | 2021-03-28 14:47 | WOUNDNOTE ---
wound/stoma photo: abdomen
--- NOTE | 2021-03-28 17:30 | WOUNDNOTE ---
Called and talked with Cynthia at [facility]. Cynthia states they will order the ostomy supplies for patient. script faxed over to Cynthia.
[2021-03-28 19:36] VITALS: BP 115/81; PULSE 94; RESP 18; TEMP 37.2; O2SAT 98
[2021-03-28] MEDS: Dronabinol 2.5 MG Capsule PO (19:54)
[2021-03-28] MEDS: DAKIN'S SOL HALF STRENGTH (=0.25%) 1 APPLIC TOPICAL (22:14)
[2021-03-28] MEDS: Arthritis Pain Compound 60 CLICK TUBE TOPICAL (22:14)
[2021-03-28] MEDS: Mirtazapine 15 MG Tablet PO (22:14)
[2021-03-28] MEDS: Atorvastatin Calcium 40 MG Tablet PO (22:14)
[2021-03-29] MEDS: Enoxaparin 40 MG/0.4 ML Syringe SC (05:21)
[2021-03-29 05:29] VITALS: BP 101/70; BP 103/79; BP 109/79; PULSE 106; PULSE 115; PULSE 94
[2021-03-29] MEDS: clonazePAM 0.5 MG Tablet 0.25 MG PO ×2 (08:28→20:30)
[2021-03-29] MEDS: Arthritis Pain Compound 60 CLICK TUBE TOPICAL ×2 (08:28→20:34)
[2021-03-29] MEDS: Aspirin E.C. 81 MG Tablet PO (08:28)
[2021-03-29] MEDS: Amox/Clavulanate 875 MG Tablet PO ×2 (08:28→20:31)
[2021-03-29] MEDS: Pantoprazole Sodium 40 MG Tablet PO (08:29)
[2021-03-29] MEDS: Carvedilol 3.125 MG TABLET PO ×2 (08:29→20:31)
[2021-03-29 10:00] VITALS: BP 101/70; PULSE 94; RESP 24; TEMP 36.2; O2SAT 96
--- NOTE | 2021-03-29 11:39 | PCM.PN.BLA ---
Progress Note Afebrile VSS Maintaining appropriate oxygen saturation on RA Weight continues to decrease. On 03/26/2021 he was 163 pounds and 5.8 ounces and today he is 161 pounds and 2.53 ounces. The I&O for yesterday is not accurate. Discussed with nursing - no problems that need addressed Reviewed the PT/OT/ST notes. Exercise tolerance is still poor. PT recommends HHC for PT/OT initially. Medication list reviewed. The INR is calcium was 5.6 which is the top normal. Physical Exam Const alert, oriented x3 and no apparent distress Resp Resp Narrative: Very diminished in the lower 1/3-1/2 of the right posterior lung with no wheezes and no crackles. No conversational dyspnea. He gets tachypneic and tachycardic with any exertion. Cardio Cardio Narrative: The rhythm is regular but the patient is tachycardic with exertion. the resting HR is in the 90's now since the Coreg was added. the HR with exertion is better now and goes to 110-115 rather than in the 130's now GI soft to palpation, non-tender and non-distended GI Narrative: The stoma is red and appears healthy. There is soft liquidy brown stool. Extremity no calf tenderness and no pedal edema Assessment & Plan Assessment/Plan (1) Hypercalcemia: (2) Post covid-19 condition, unspecified: PLAN: 1. CBC with differential, renal profile and serum albumin in the AM. 2. Continue therapy. 3. Plan discharge for 03/31/2021 home. Visit Charges Inpatient E&M: 78871 Subs Hosp L2
[2021-03-29] MEDS: DAKIN'S SOL HALF STRENGTH (=0.25%) 1 APPLIC TOPICAL ×2 (13:45→20:33)
[2021-03-29 16:39] VITALS: O2SAT 94
[2021-03-29 19:46] VITALS: BP 112/75; PULSE 101; RESP 20; TEMP 36.6; O2SAT 98
[2021-03-29] MEDS: Mirtazapine 15 MG Tablet PO (20:31)
[2021-03-29] MEDS: Atorvastatin Calcium 40 MG Tablet PO (20:31)
[2021-03-29] MEDS: Dronabinol 2.5 MG Capsule PO (21:39)
[2021-03-30] MEDS: Enoxaparin 40 MG/0.4 ML Syringe SC (06:12)
[2021-03-30 06:19] VITALS: BP 112/73; BP 94/73; BP 98/63; PULSE 104; PULSE 113; PULSE 70
[2021-03-30 07:33] LABS: Absolute Lymphocyte Count 2.46 X10^3/uL (0.83-4.51); Absolute Neutrophil Count 9.7 X10^3/uL (2.0-7.7); Basophil# 0.13 X10^3/uL; Basophil% 0.9 % (0-1); Eosinophil# 0.46 X10^3/uL; Eosinophils% 3.3 % (0-5); Hematocrit 33.6 % (40-54); Hemoglobin 10.6 g/dL (13.0-16.5); Lymphocyte # 2.46 X10^3/ul (0.83-4.51); Lymphocyte % 17.8 % (19-41); Mean Corp Hgb Conc 31.5 g/dL (32-36); Mean Corpuscular Hgb 30.5 pg (27.0-32.0); Mean Corpuscular Volume 96.6 fL (80-94); Mean Platelet Vol. 9.2 fl (6.2-12.0); Monocyte% 5.8 % (0-10); NRBC Flagged by Analyzer 0 % (0-5); Neutrophil # 9.67 X10^3/uL (2.7-7.7); Neutrophil % 70.1 % (47-70); Platelet Count 441 K/mm3 (150-450); RBC Distribution Width CV 14.5 % (11.6-14.6); RBC Distribution Width SD 51.1 fl (35.1-43.9); Red Blood Count 3.48 M/mm3 (4.6-6.2); White Blood Count 13.8 K/mm3 (4.4-11.0)
[2021-03-30 07:51] LABS: Albumin, Serum 2.7 g/dL (3.2-5.0); BUN 5 mg/dL (7-18); BUN/Creat Ratio 5.6 RATIO (10-20); Chloride 107 mmol/L (98-107); Creatinine, Serum 0.89 mg/dL (0.70-1.30); EST Glomerular Filtration Rate 95 mL/min (>60); Est Glom Filt Rate - Afr Amer 115 mL/min (>60); Estimated Creatinine Clearance 88.71 ml/min; Glucose 98 mg/dL (74-106); Phosphorus 2.8 mg/dL (2.5-4.9); Potassium 3.6 mmol/L (3.5-5.1); Sodium Level 138 mmol/L (136-145)
[2021-03-30] MEDS: Pantoprazole Sodium 40 MG Tablet PO (08:09)
[2021-03-30] MEDS: Aspirin E.C. 81 MG Tablet PO (08:09)
[2021-03-30] MEDS: Amox/Clavulanate 875 MG Tablet PO ×2 (08:09→20:27)
[2021-03-30] MEDS: Carvedilol 3.125 MG TABLET PO ×2 (08:09→20:27)
[2021-03-30] MEDS: clonazePAM 0.5 MG Tablet 0.25 MG PO ×2 (08:14→20:24)
[2021-03-30] MEDS: Arthritis Pain Compound 60 CLICK TUBE TOPICAL ×2 (08:15→20:26)
[2021-03-30 10:00] VITALS: BP 104/80; PULSE 104; RESP 22; TEMP 36.6; O2SAT 94
--- NOTE | 2021-03-30 11:06 | WOUNDNOTE ---
In to talk with patient since the plan is for discharge home tomorrow. pt denies having any questions. not in room at this time, but states she will be coming soon. therapy in to work with patient. this nurse did empty the ostomy appliance again with patient before therapy. pt very appreciative of care.
[2021-03-30] MEDS: DAKIN'S SOL HALF STRENGTH (=0.25%) 1 APPLIC TOPICAL ×2 (14:02→20:28)
[2021-03-30 20:03] VITALS: BP 115/77; PULSE 100; RESP 20; TEMP 36.2; O2SAT 97
[2021-03-30] MEDS: Dronabinol 2.5 MG Capsule PO (20:26)
[2021-03-30] MEDS: Mirtazapine 15 MG Tablet PO (20:27)
[2021-03-30] MEDS: Atorvastatin Calcium 40 MG Tablet PO (20:27)
[2021-03-31 06:15] VITALS: BP 106/68; BP 108/62; BP 110/70; PULSE 100; PULSE 103; PULSE 98
[2021-03-31] MEDS: Enoxaparin 40 MG/0.4 ML Syringe SC (06:20)
[2021-03-31 07:43] VITALS: BP 116/70; PULSE 63; RESP 16; TEMP 36.4; O2SAT 100
[2021-03-31] MEDS: Arthritis Pain Compound 60 CLICK TUBE TOPICAL (07:56)
[2021-03-31] MEDS: Aspirin E.C. 81 MG Tablet PO (07:56)
[2021-03-31] MEDS: Carvedilol 3.125 MG TABLET PO (07:56)
[2021-03-31] MEDS: Amox/Clavulanate 875 MG Tablet PO (07:56)
[2021-03-31] MEDS: Pantoprazole Sodium 40 MG Tablet PO (07:56)
[2021-03-31] MEDS: clonazePAM 0.5 MG Tablet 0.25 MG PO (08:12)
[2021-03-31] MEDS: DAKIN'S SOL HALF STRENGTH (=0.25%) 1 APPLIC TOPICAL (08:24)
[2021-03-31 09:53] VITALS: O2SAT 97
--- NOTE | 2021-03-31 10:30 | DCINST_ITS ---
Discharge Instructions Diet Discharge Diet: No restrictions and - (OK to use a scoop of protein powder twice a day) Activity Discharge Activity: May Not Drive, May Shower, Use Walker and - (You must balance rest and exercise. Do not stop moving/exercising. Do the exercises g iven to you by the therapists at least once a day.y.) May resume sexual activity in: - (when you feel you have enough energy. Do not huston it.) Weight Bearing Status: Full weight bearing Lifting Restrictions: no ore than 10 lbs Keep extremity elevated above heart level: Legs Dressing / Incision Call your doctor if your incision/area has: Continuous Slow Oozing, Sudden Increased Bleeding, Increased Pain/ Swelling, Increased Redness, Foul Smelling Discharge and Swelling at the incision site Call your doctor if you observe: Fever of 101 or Higher, Inability to urinate, Inability to have a bowel movement, Shortness of breath, Dizziness, Fainting spells, Swelling in the ankles, Chest pain, Increased palpitations (irregular heartbeat), Calf discomfort and Uncontrolled pain Suture Line Care: Avoid Pulling/Pushing and Avoid Pinching/Bending Change Dressing in: 1 day (change the dressing 1-2 times a day ) Cleanse incision/area with: Soap & Water and Keep Dressing Clean & Dry Follow Up Care Please Follow Up With: Doroteo Camacho MD When: Within the next 7-10 days Test Results: Test results from this visit will be discussed in further detail at your follow-up appointment, if applicable. Pending Tests Upon Discharge: none Discharge Plan Admission Admit Date/Time: 03/15/21 18:31 Primary Reason for Your Visit: Post COVID debility Attending Provider: Ita Hunter Primary Care Provider: Doroteo Camacho Consulting Providers: Dominga Olmstead Instructions Patient Instructions: Hypercalcemia Dc, Pulmonary Fibrosis, ED Anemia, Iron- Deficiency (Adult) Additional Instructions / Restrictions: 1. You are a OLINDA man! You survived COVID and the myriad complications you have had. You became very debilitated from COVID and the long hospital stay. Do NOT be in a hurry to get back to your baseline. You MUST balance exercise with rest......like you have been doing in rehab. Eat Healthy, Get 8 hours of sleep at night, exercise and avoid stress. Avoid sick people and ALWAYS wear a mask in public. Your lungs have been weakened by COVID and also by the abscess in the chest. ANY respiratory illness will lead to decompensation......this includes Flu and the common cold. We have given you the first of 2 doses of COVID vaccine. you received the PFIZER vaccine and the second shot is due to 04/10/21. You will then need a booster in 6 months. We also gave you Pneumovax....this is a vaccine to help prevent a common type of pneumonia called pneumococcal pneumonia. You received the flu vaccine is December. 2. You do not need to wear the oxygen while sleeping or when at rest......your oxygen saturations have be within normal limits at these times. Your oxygen drops with exercise and so you must wear the oxygen with any activity. You can also wear the oxygen if it makes you feel more comfortable. We are going to have you follow up with pulmonary medicine and they will likely due some pulmonary function tests in the future to help assess the amount of scarring in the lungs related to infection. You likely have some pulmonary fibrosis.....I am giving you a handout that tells you about fibrosis.....fibrosis is scarring. 3. Your calcium has been high and this causes the kidney to put out more urine than it should and you got dehydrated and went into kidney failure. This has resolved with increasing the fluid intake. As long as you keep up good water intake you will be fine.......if you get ill and don't drink enough I suspect the calcium will go back up. You MUST drink enough water every day to keep the urine a very pale, almost clear, yellow. Read the handout/literature we gave you. 4. Take all medications as instructed and keep all the follow up doctors appointments. You have an appt with Dr. Sandy on 04/16/21. He is the infectious disease doctor and he will decide how long you need to stay on antib iotics for the abscess in the chest. As of now you are scheduled to take the Augmentin until 04/23/21. 5. Call your PCP if severe diarrhea ( > 5 stools a day), painful sores in the mouth, painful swallowing, rash or itching. Taking a probiotic such as Lactobacillus or Kefir can help with loose stools while taking antibiotics. 6. There are different strains of COVID. Just because you had COVID does not mean that you can not get it again. I recommend you avoid people who are not vaccinated. Stay away from people who are sick. ALWAYS wear a mask in public. Keep up with the vaccines. 7. It has been a pleasure to meet you Aayush. You have come a long way since that first day in rehab. If you have any questions after leaving rehab please call me. Office: [phone] Happy Holidays. Discharge Orders/Prescriptions Prescriptions: New carvedilol 3.125 mg Tablet 3.125 mg PO BID Qty: 60 RF: 0 clonazepam 0.5 mg Tablet 0.25 mg PO BID@0800,2000 Qty: 14 RF: 0 mirtazapine 15 mg Tablet 30 mg PO QHS Qty: 60 RF: 0 acidophilus-pectin, citrus 25 million cell -100 mg Tablet 1 tab PO BID Qty: 60 RF: 0 Continued aspirin 81 mg Tablet,Delayed Release (Dr/Ec) 81 mg PO DAILY RF: 0 acetaminophen [Tylenol] 325 mg Tablet 650 mg PO Q6H PRN (Reason: Pain (Scale Score 4-6)) RF: 0 pantoprazole 40 mg Tablet,Delayed Release (Dr/Ec) 40 mg PO DAILY Qty: 30 RF: 0 amoxicillin-pot clavulanate [Augmentin] 875-125 mg Tablet 1 tab PO BID Qty: 47 RF: 0 Changed atorvastatin 40 mg tablet 40 mg PO QHS Qty: 30 RF: 0 Discontinued ipratropium-albuterol [DuoNeb] 0.5 mg-3 mg(2.5 mg base)/3 mL Solution For Nebulization 3 ml INHALATION Q6H PRN (Reason: Shortness Of Breath Or Wheezing) RF: 0 trazodone 50 mg Tablet 50 mg PO QHS RF: 0 melatonin 3 mg Tablet 6 mg PO DAILY@2200 RF: 0 Referrals / Follow Up: Ruperto Sandy 3 [Other] (04/16/21 @ 3:00) Jesús Wood MD [STAFF PHYSICIAN] - 04/11/21 9:30 am Stephan Valencia MD [STAFF PHYSICIAN] - 04/18/21 12:45 pm Doroteo Camacho MD [Primary Care Provider] - 04/09/21 3:20 pm Disposition Disposition (needs filled in before D/C Order can be placed): Home Health Service
--- NOTE | 2021-03-31 12:56 | DS.PCM_ITS ---
Providers Date of Admission: 03/15/21 Date of Discharge: 03/31/21 Primary Care Physician: Dr. Doroteo Camacho MD Consultations 03/15/21 19:35 Consult: Onc/Wound/contact worker Routine Comment: abdomen 03/20/21 09:31 Consult: Nephrology Routine Consulting Provider: Dominga Olmstead Reason for Consult: acute renal failure EMERGENT Consult: No MD Notified: Yes Date Notified: 03/20/21 Time Notified: 09:32 Method of Notification: Answering Service Reason For Visit: DEBILITY Diagnosis Discharge Diagnosis (1) Physical debility: Status: Acute Code(s): R53.81 - Other malaise Plan: DC home with [facility] (2) Post covid-19 condition, unspecified: Status: Acute Code(s): U09.9 - Post COVID-19 condition, unspecified (3) Generalized weakness: Status: Acute Code(s): R53.1 - Weakness Plan: Improving. Exercise limited by NAVARRO requiring oxygen supplementation with poor exercise tolerance. (4) Severe protein-calorie malnutrition: Status: Acute Code(s): E43 - Unspecified severe protein-calorie malnutrition Plan: Eating well at [place] and usually consuming at least 75% of his trays and eating some outside food brought by his . (5) Hypercalcemia: Status: Acute Code(s): E83.52 - Hypercalcemia Plan: PTH is low. Calcium controlled with increasing water intake but will increase IF he is not able to consume the extra water. Ionized calcium is highest normal even with increased fluid intake. PTHrP is pending. Needs worked up as an OP for the etiology of the hypercalcemia. (6) Acute renal failure: Status: Resolved Code(s): N17.9 - Acute kidney failure, unspecified Plan: I suspect this was related to the high urine output when the calcium was high and he was not able to keep up with the fluid losses. (7) Hyperphosphatemia: Status: Resolved Code(s): E83.39 - Other disorders of phosphorus metabolism (8) Metabolic acidosis: Status: Resolved Code(s): E87.2 - Acidosis (9) Anxiety disorder due to general medical condition with panic attack: Status: Acute Code(s): F06.4 - Anxiety disorder due to known physiological condition; F41.0 - Panic disorder [episodic paroxysmal anxiety] Plan: No longer having panic attacks and the Klonopin is being weaned off. (10) Acute respiratory failure due to COVID-19: Status: Resolved Code(s): U07.1 - COVID-19; J96.00 - Acute respiratory failure, unspecified whether with hypoxia or hypercapnia (11) Pneumonia due to COVID-19 virus: Status: Resolved Code(s): U07.1 - COVID-19; J12.82 - Pneumonia due to coronavirus disease 2019 (12) Perforated bowel: Status: Inactive Code(s): K63.1 - Perforation of intestine (nontraumatic) Plan: Ex-LAP on 02/[address] Wood with R hemicolectomy (13) History of ileostomy: Status: Inactive Code(s): Z98.890 - Other specified postprocedural states Plan: The wound from EX-LAP dehisced and he had an anastomotic leak and he was taken back to surgery by Dr. Wood on 02/14/21 and had ileostomy and creation of a mucous fistula. The wound is healing by secondary intent at present. (14) Empyema lung: Status: Acute Code(s): J86.9 - Pyothorax without fistula Plan: Transferred to [facility] for chest tube placement and he also received 4 days of of lytic agents. (15) Superficial thrombophlebitis of right upper extremity: Status: Resolved Code(s): I80.8 - Phlebitis and thrombophlebitis of other sites Plan: due to IV in R antecubital V. (16) Hypokalemia: Status: Resolved Code(s): E87.6 - Hypokalemia (17) Tachycardia: Status: Resolved Code(s): R00.0 - Tachycardia, unspecified Plan: TSH is normal. Cortisol mildly elevated due to infection and stress. HR's into the 130's. Controlled with low dose Coreg. (18) Iron deficiency: Status: Acute Code(s): E61.1 - Iron deficiency Plan: Has been given iron sucrose IV in rehab. (19) Hyponatremia: Status: Resolved Code(s): E87.1 - Hypo-osmolality and hyponatremia (20) Depression: Status: Acute Code(s): F32.A - Depression, unspecified Plan: Much better on Remeron 30 mg p.o. nightly. Sleeping well, eating well, motivated to do therapy and pleasant at DC. No longer having panic attacks. (21) Chronic respiratory failure with hypoxia: Status: Chronic Code(s): J96.11 - Chronic respiratory failure with hypoxia Plan: O2 sat is appropriate on RA at rest and while sleeping but, he desaturates significantly with exertion and requires supplemental oxygenation. (22) Normochromic normocytic anemia: Status: Acute Code(s): D64.9 - Anemia, unspecified Plan: stable. (23) Hyperlipidemia: Status: Acute Code(s): E78.5 - Hyperlipidemia, unspecified (24) Pulmonary fibrosis: Status: Suspected Code(s): J84.10 - Pulmonary fibrosis, unspecified Plan: Appt with Dr. Valencia scheduled following DC from rehab. Medications at Discharge Home Medications aspirin 81 mg PO DAILY 01/27/21 acetaminophen [Tylenol] 650 mg PO Q6H PRN 03/15/21 acidophilus-pectin, citrus 1 tab PO BID #60 tab 03/31/21 amoxicillin-pot clavulanate [Augmentin] 1 tab PO BID #47 tab 03/31/21 atorvastatin 40 mg PO QHS #30 tab 03/31/21 carvedilol 3.125 mg PO BID #60 tab 03/31/21 clonazepam 0.25 mg PO BID@0800,2000 #14 tab 03/31/21 mirtazapine 30 mg PO QHS #60 tab 03/31/21 pantoprazole 40 mg PO DAILY #30 tab 03/31/21 Hospital Course Operations - (1. ex-LAP 02/04/21 for perforated bowel with R hemicolectomy 2. 02/12/21 Laparotomy with ileostomy and creation of mucous fistula for wound dehiscence and anastomotic leak. 3. ) Procedures - (R chest tube for tension pneumothorax. ) Summary of Care Provided Minutes Spent on Discharge: 50 Hospital Course: KEHINDE RIOJAS, is a 55 YO M with a past uncle history of obesity, hypertension and hyperlipidemia who presented to the ED at [facility] on01/27/21 with sx of COVID which he had for 12 days. He had not been vaccinated. He was not a candidate for remdesivir given the timeline. He was given a dose of Tocilizumab and started on Decadron. He was mottled at presentation and was immediately intubated in the ED. He was transferred to ICU. O2 sat was in the 80's despite being intubated and FIO2 of 100%. Collar Runner and ID were consulted. He was started on Zosyn and Vancomycin because the white blood cell count was elevated at 25,000, there were BL infiltrates on the CXR and co-existing bacterial PNA could not be ruled out. He had a protracted hospital admission at [facility] with many complications. He had a cecal perforation and Ex Lap on 02/04 with R hemicolectomy. The mesenteric defect was too large to be closed and the omentum was draped over the bowel contents and then the fascia was closed. He developed septic shock and was placed on pressors. He was taken back to surgery on 02/12/2021 for fascial dehiscence with small bowel evisceration. There was also a leak from the ile ocolic anastomosis. Laparotomy with resection of ileocolic anastomosis and creation of end ileostomy and mucous fistula was performed by Dr. Wood. On 02/14/21 he developed a R tension pneumothorax and had a chest tube placed by Dr. Wood. Persistent R lung opacities prompted a CT scan of the chest on 02/21/21. CT chest showed a dense right middle lobe and right lower lobe pneumonia or atelectasis with a moderate sized organized R side hydropneumothorax with multiples loculations containing gas including a 7 cm loculation anteriorly with an air fluid level worrisome for an empyema. He underwent a CT directed drainage of the fluid collection by the radiologist on 02/21/21. It was decided that he should be transferred to a tertiary facility to be evaluated by a thoracic surgeon and on 02/22/21 he was transferred to [facility]. At [facility] he was given lytic agents on 02/25, 02/26, 02/27 and 02/28 by thoracic surgery and his oxygen was able to be weaned down with slow improvement. Chest tube output decreased and his white blood cell count started to trend down. While at [facility] he was seen by general surgery for evaluation of his midline abdominal wound healing by secondary intention and they thought it was healing well. He was also seen by psychiatry and an antidepressant was initiated. While there he had a CorPak due to dysphagia and this was removed prior to discharge. Chest tube was discontinued on 03/14/21. He was evaluated by therapy at [facility] and a recommendation was made for acute rehab at [place]. He was transferred to [facility] acute rehab on 03/15/21 for 3 hours of therapy daily to restore function at or near his prior level of function/independence. He is to remain on Augmentin until 04/23/21 per ID. At the time he arrived on rehab he was experiencing generalized anxiety with incapacitating panic attacks. He was afraid to get out of bed and this impaired his ability to do therapy. He had not been sleeping because he was afraid to go to sleep for fear he would have another serious complication. He was started on Klonopin 0.5 mg every 8 hours and had PRN Xanax for panic attack breakthrough. He was also started on Remeron at . After a few nights of good sleep the Klonopin was tapered to BID with no recurrence of panic attacks. It was later weaned down to 0.25 mg BID and at [place] there are orders to taper off. An overnight trending pulse ox was done during the admission and he had no desaturation events. The pulse ox at rest on is WNL. He desaturates with any activity and has been getting supplemental oxygen any time he is up and moving. BS's in the R base were very diminished. A chest x-ray was obtained on 03/16/2021 and showed better aeration and prior to him being transferred to [facility] with possible small right pleural effusion. CXR was repeated on 03/21/21 and showed Reticular densities throughout both lungs that probably represent fibrosis. There once again with blunting of the right costophrenic angle. Oxygenation remained stable throughout his stay in rehab and home oxygen was arranged prior to [facility]. An appt was scheduled with Dr. Valencia and he will likely need PFT's. He did not have wheezing. Creat at arrival to rehab was elevated at 1.8. The creat at [facility] to [facility] was 0.47. The creat continued to rise and peaked at 2.12. The FENA was low at 0.3%, consistent with dehydration. He had a metabolic acidosis with a serum bicarb of 16. OP from the ileostomy ranged from 200-400 cc/day. Despite the increasing creatinine he continued to have increased urine OP. I suspect this is due to hypercalcemia. Calcium corrected for hypoalbuminemia was 10.74. consult was obtained with Dr. Gonzalez and he recommended fluids and started a bicarb drip. ARF resolved with hydration and the metabolic acidosis also resolved. He continued to have increased urine OP but as he appetite and intake improved he was able to keep up with the fluid losses. At the time of discharge his BUN was 5 with a creatinine of 0.89. As long as he is not nauseated or vomiting he is able to keep hydrated. If for any reason he is NPO he will likely need IV fluids to remain hydrated and prevent recurrent ARF. PTH was checked and was low ruling out primary hypoparathyroidism. A TPHrP was checked and was was less than 2.0. The hypercalcemia could be related to pronoged immobility however I would continue to follow this for a few months and if it is still high would refer for evaluation for occult malignancy. He has not been on vitamin D or calcium supplementation while he was on rehab. Kehinde did well in therapy and prior to DC he was able to ambulate up to 175 feet with a wheeled walker at [facility] with the therapist britt the oxygen. He was standby assist for bed mobility and contact-guard assist/min assist for stand and pivot to the chair. He was able to a send/descend 7 steps with 2 handrails at minimal assistance for safety. He was independent with eating and supervision/set up for grooming. He was standby assist for bathing and lower body dressing. He was supervision/set up for upper body dressing. He still has poor exercise tolerance and fatigues very easily. He had not had a panic attacks since the first few days of his admission. He was sleeping well and his appetite had improved significantly. His came in for family training and Kehinde was discharged home on 03/31/2021. The physical therapist felt he would be best served with home health care for PT/OT initially due to very poor exercise tolerance. Home health care for PT/OT/ST/SN was arranged by the social media designer prior to discharge. A front wheeled walker was delivered to his room and home oxygen was arranged. He reviewed received his first dose of the Pfizer vaccine while in rehab and also received pneumovax. He had a flu vaccine in December. He will need the second Pfizer dose on 04/10/21. Prior to DC the wound dressing was changed to hydrogel and the dressing will be changed BID. Nursing instructed his on how to do the dressing changes. He will follow up with the [facility] and Dr. Long post DC. He has an appt with Dr. Sandy on 04/16/21 to determine if he will need additional antibiotics for the pulmonary/pleural abscess. Augmentin is scheduled to be discontinued on 04/23/20. Physical Exam Const alert, oriented x3 and no apparent distress Constitutional Narrative: looks very alert and is jovial and participating in the conversations at the bedside. He is very happy to be going home after almost 3 months in the hospital. General Appearance: cooperative, comfortable, anxious, ill appearing, frail and appears older than stated age HEENT normocephalic, head/scalp atraumatic, hearing grossly normal bilaterally, moist oral mucous membranes and gingiva normal Eyes PERRL, EOMs intact bilaterally, conjunctivae normal and no scleral icterus Neck No nuchal rigidity, supple and no JVD Neck Narrative: Decreased cervical rotation to the left General: trachea midline; Negative for lymphadenopathy, submandibular swelling or meningeal signs Chest Chest Narrative: Very diminished in the R base still. No crackles and no wheezes. Can not exclude pleural effusion on the CXR but the BNP is only 32 and he is AF with a decreasing leukocytosis so will continue to monitor. Chest: symmetrical chest wall rise Resp normal respiratory effort, no retractions, no use of accessory muscles and clear to auscultation bilaterally Resp Narrative: Very diminished still in the R base. No rales, wheezes or rhonchi. Effort and Inspection: able to speak in complete sentences; Negative for abnormal respiratory pattern, retractions or uses accessory muscles Cardio regular rhythm, S1 normal heart sound, S2 normal heart sound, no murmurs, no rub and no gallops Cardio Narrative: HR has come down and he has less NAVARRO now. tilt test was negative today and the HR was 87 when standing and 80 when lying down. Jugular Venous Distention: Negative for JVD Rate: tachycardic Bruits: Negative for carotid bruit GI normal to inspection, nondistended, normoactive bowel sounds, soft to palpation, non-tender and non-distended GI Narrative: No guarding with palpation. The midline abd wound continues to contract. The base of the wound is very dry. There is no js-wound erythema and no DC from the wound. There is no slough present. There is brown liquid stool in the ostomy bag and the stoma is red and healthy appearing. there is a small amount of brown mucus from the fistula in the LUQ. Extremity normal capillary refill, no joint enlargement, no calf tenderness and no pedal edema Extremity Narrative: The swelling in the RUE and the redness due to superficial vein thrombosis has resolved. General Extremity: Negative for clubbing, cyanosis or deformity Skin General Skin Exam: no breakdown Rashes: no rashes Wound Narrative: The abdominal wound is filling in and peng. The base is dry. Currently being dressed with W-D with Dakins Hair: general thinning Neuro oriented x3, CN's II-XII intact bilaterally, moves all extremities, no focal motor deficits and no sensory deficits noted Neuro Narrative: Generalized weakness Psych mental status grossly normal, thought process normal, cooperative, affect normal and speech normal; Negative for denies hallucinations or denies homicidal ideation Psych Narrative: more alert, conversant and pleasant. Making jokes. Activity / Motor Behavior: appropriate eye contact; Negative for psychomotor agitation, psychomotor slowing, fidgetting or restless Medical Records Data Medical Nutrition Assessment Dietitian: Malnutrition Criteria Met Start: 03/16/21 15:20 Freq: Status: Active Protocol: Document 03/16/21 15:20 AG (Rec: 03/16/21 15:20 [id number]) Nutrition Malnutrition Evidence of Malnutrition Exists Yes Malnutrition (severe): Acute Illness/Injury Evidenced By Suboptimal Energy Intake ( Severe),Weight Loss (Severe) Clinical Problem Acute Disease or Injury Related Malnutrition Etiology severe, acute malnutrition r/t inadequate energy intake d/t acute illness/medical complications from COVID-19 Signs/Symptoms as evidenced by unintentional wt loss of 54.1#/26% < 2 months, estimated PO intake meeting <50% of estimated nutritional needs x 1.5 months Status Active Problem Recommendation Dietitian Recommendations/Changes continue regular diet- texture /consistency per QUALITY CONTROL COORDINATOR; Will d/c Ensure Enlive d/t pt refusal and fortify foods, provide 1 scoop beneprotein w/ meals. Will try Justin BID for wound healing. Will monitor labs and need for phos restriction. Weight / BMI Weight Weight: 160 lb 4.417 oz Body Mass Index (BMI) 26.9 ABG / Lab / Microbiology Data Result Diagrams: 03/30/21 07:21 03/30/21 07:21 D/C Instructions Discharge Diet: No restrictions and - (OK to use a scoop of protein powder twice a day) May resume sexual activity in: - (when you feel you have enough energy. Do not huston it.) Weight Bearing Status: Full weight bearing Keep extremity elevated above heart level: Legs Call your doctor if your incision/area has: Continuous Slow Oozing, Sudden Increased Bleeding, Increased Pain/ Swelling, Increased Redness, Foul Smelling Discharge and Swelling at the incision site Call your doctor if you observe: Fever of 101 or Higher, Inability to urinate, I nability to have a bowel movement, Shortness of breath, Dizziness, Fainting spells, Swelling in the ankles, Chest pain, Increased palpitations (irregular heartbeat), Calf discomfort and Uncontrolled pain Suture Line Care: Avoid Pulling/Pushing and Avoid Pinching/Bending Cleanse incision/area with: Soap & Water and Keep Dressing Clean & Dry Pending Tests Upon Discharge: none Please Follow Up With: Doroteo Camacho MD When: Within the next 7-10 days Meaningful Use Info Meaningful Use Diagnoses (Choose all that apply): None applicable Discharge Plan Admission Admit Date/Time: 03/15/21 18:31 Primary Reason for Your Visit: Post COVID debility Attending Provider: Ita Hunter Primary Care Provider: Doroteo Camacho Consulting Providers: Dominga Olmstead Instructions Patient Instructions: Hypercalcemia Dc, Pulmonary Fibrosis, ED Anemia, Iron- Deficiency (Adult) Additional Instructions / Restrictions: 1. You are a OLINDA man! You survived COVID and the myriad complications you have had. You became very debilitated from COVID and the long hospital stay. Do NOT be in a hurry to get back to your baseline. You MUST balance exercise with rest......like you have been doing in rehab. Eat Healthy, Get 8 hours of sleep at night, exercise and avoid stress. Avoid sick people and ALWAYS wear a mask in public. Your lungs have been weakened by COVID and also by the abscess in the chest. ANY respiratory illness will lead to decompensation......this includes Flu and the common cold. We have given you the first of 2 doses of COVID vaccine. you received the PFIZER vaccine and the second shot is due to 04/10/21. You will then need a booster in 6 months. We also gave you Pneumovax....this is a vaccine to help prevent a common type of pneumonia called pneumococcal pneumonia. You received the flu vaccine is December. 2. You do not need to wear the oxygen while sleeping or when at rest......your oxygen saturations have be within normal limits at these times. Your oxygen drops with exercise and so you must wear the oxygen with any activity. You can also wear the oxygen if it makes you feel more comfortable. We are going to have you follow up with pulmonary medicine and they will likely due some pulmonary function tests in the future to help assess the amount of scarring in the lungs related to infection. You likely have some pulmonary fibrosis.....I am giving you a handout that tells you about fibrosis.....fibrosis is scarring. 3. Your calcium has been high and this causes the kidney to put out more urine than it should and you got dehydrated and went into kidney failure. This has resolved with increasing the fluid intake. As long as you keep up good water intake you will be fine.......if you get ill and don't drink enough I suspect th e calcium will go back up. You MUST drink enough water every day to keep the urine a very pale, almost clear, yellow. Read the handout/literature we gave you. 4. Take all medications as instructed and keep all the follow up doctors appointments. You have an appt with Dr. Sandy on 04/16/21. He is the infectious disease doctor and he will decide how long you need to stay on antibiotics for the abscess in the chest. As of now you are scheduled to take the Augmentin until 04/23/21. 5. Call your PCP if severe diarrhea ( > 5 stools a day), painful sores in the mouth, painful swallowing, rash or itching. Taking a probiotic such as Lactobacillus or Kefir can help with loose stools while taking antibiotics. 6. There are different strains of COVID. Just because you had COVID does not m bertrand that you can not get it again. I recommend you avoid people who are not vaccinated. Stay away from people who are sick. ALWAYS wear a mask in public. Keep up with the vaccines. 7. It has been a pleasure to meet you Kehinde. You have come a long way since that first day in rehab. If you have any questions after leaving rehab please call me. Office: [phone] Happy Holidays. Discharge Orders/Prescriptions Prescriptions: New carvedilol 3.125 mg Tablet 3.125 mg PO BID Qty: 60 RF: 0 clonazepam 0.5 mg Tablet 0.25 mg PO BID@0800,2000 Qty: 14 RF: 0 mirtazapine 15 mg Tablet 30 mg PO QHS Qty: 60 RF: 0 acidophilus-pectin, citrus 25 million cell -100 mg Tablet 1 tab PO BID Qty: 60 RF: 0 Continued aspirin 81 mg Tablet,Delayed Release (Dr/Ec) 81 mg PO DAILY RF: 0 acetaminophen [Tylenol] 325 mg Tablet 650 mg PO Q6H PRN (Reason: Pain (Scale Score 4-6)) RF: 0 pantoprazole 40 mg Tablet,Delayed Release (Dr/Ec) 40 mg PO DAILY Qty: 30 RF: 0 amoxicillin-pot clavulanate [Augmentin] 875-125 mg Tablet 1 tab PO BID Qty: 47 RF: 0 Changed atorvastatin 40 mg tablet 40 mg PO QHS Qty: 30 RF: 0 Discontinued ipratropium-albuterol [DuoNeb] 0.5 mg-3 mg(2.5 mg base)/3 mL Solution For Nebulization 3 ml INHALATION Q6H PRN (Reason: Shortness Of Breath Or Wheezing) RF: 0 trazodone 50 mg Tablet 50 mg PO QHS RF: 0 melatonin 3 mg Tablet 6 mg PO DAILY@2200 RF: 0 Referrals / Follow Up: Ruperto Sandy 3 [Other] (04/16/21 @ 3:00) Jesús Wood MD [STAFF PHYSICIAN] - 04/11/21 9:30 am Stephan Valencia MD [STAFF PHYSICIAN] - 04/18/21 12:45 pm Doroteo Camacho MD [Primary Care Provider] - 04/09/21 3:20 pm Disposition Disposition (needs filled in before D/C Order can be placed): Home Health Service Charges/Coding Visit Charges Inpatient E&M: 54689 Disch Hosp
[2021-03-31 13:30] VITALS: BP 116/70; PULSE 77; RESP 18; TEMP 36.4; O2SAT 100
--- NOTE | 2021-03-31 13:30 | NURSING ---
Discharge to home, aware of wound care and ostomy care.
--- NOTE | 2021-03-31 18:59 | NURSING ---
Klonopin 0.25mg wasted with RN Germaine Kelley at this time due to no other RN for this nurse to waste with prior. Wasted in the RX bin in med room. This med was from this Am's dose that was given and wasted 0.25mg per order.
== END 2021-03-31 13:30 | disposition home health service (06) | DRG 189 ==
PROVIDERS: Admitting Provider Internal Medicine; PCP Family Medicine; Visit Provider Internal Medicine
DX: J96.11 Chronic respiratory failure with hypoxia (principal); E43 Unspecified severe protein-calorie malnutrition; N17.9 Acute kidney failure, unspecified; E87.2 Acidosis; E87.1 Hypo-osmolality and hyponatremia; J90 Pleural effusion, not elsewhere classified; U09.9 Post COVID-19 condition, unspecified; Z23 Encounter for immunization; I10 Essential (primary) hypertension; E78.5 Hyperlipidemia, unspecified; T81.32XD Disruption of internal operation (surgical) wound, not elsewhere classified, subsequent encounter; I80.8 Phlebitis and thrombophlebitis of other sites; Y83.2 Surgical operation with anastomosis, bypass or graft as the cause of abnormal reaction of the patient, or of later complication, without mention of misadventure at the time of the procedure; F32.A Depression, unspecified; D64.9 Anemia, unspecified; F41.0 Panic disorder [episodic paroxysmal anxiety]; F06.4 Anxiety disorder due to known physiological condition; E83.52 Hypercalcemia; E83.39 Other disorders of phosphorus metabolism; Z79.82 Long term (current) use of aspirin; Z79.899 Other long term (current) drug therapy; Z68.25 Body mass index [BMI] 25.0-25.9, adult; Z93.2 Ileostomy status; Z87.01 Personal history of pneumonia (recurrent)
CPT/HCPCS: 0001A; 36415; 71046; 74230; 80048; 80053; 80069; 81001; 82040; 82306; 82330; 82533; 82570; 82728; 83540; 83550; 83735; 83880; 83970; 84100; 84132; 84153; 84300; 84443; 84484; 85014; 85018; 85025; 85652; 86140; 90732; 91300; 92507; 92523; 92526; 92610; 92611; 93971; 94762; 97110; 97116; 97150; 97162; 97166; 97530; 97535; 97802; 97803; 99251; G0009; J7030; J7040; J7050; A4216; G0103; G0463; J2916

== ENCOUNTER 2021-05-07 12:14 | Outpatient (RCR) | payer OTHER, SELFPAY ==
[2021-04-30 14:10] LABS: CRP < 2.90 mg/L (0.0-3.0)
[2021-05-07 12:55] LABS: CRP < 2.90 mg/L (0.0-3.0)
== END 2021-05-21 18:00 | disposition home or self-care (01) ==
LOC: HHLAB 12:14
PROVIDERS: PCP Family Medicine; Visit Provider Internal Medicine
DX: Z43.2 Encounter for attention to ileostomy (principal); Z48.01 Encounter for change or removal of surgical wound dressing
CPT/HCPCS: 86140

== ENCOUNTER 2021-06-18 09:19 | Outpatient (CLI) | payer OTHER, SELFPAY ==
--- NOTE | 2021-06-18 14:15 | PFTCOMP ---
COMPLETE PULMONARY FUNCTION TEST INTERPRETATION Brief HPI: Patient is a 56 year old male, currently under the care of Tesha Bee, who presents to [facility] for complete pulmonary function tests secondary to diagnosis of status post COVID-19 pneumonia. Respiratory therapist reports good effort and reproducible results. Interpretation: Forced expiration spirometry shows no large airways obstructive ventilatory defect with an FEV1 of 48% predicted. There is no significant bronchodilator response by strict ATS criteria. Spirograms are of good quality and plateau normally. The respiratory flow volume loop shows a normal pattern. Lung volumes by body plethysmography show a severely decreased total lung capacity at 3.36 L, 56% predicted. All other lung volumes are reduced symmetrically. Diffusion capacity by carbon monoxide is decreased at 55% predicted. The airway resistance is normal. No previous pulmonary function tests were available for review. Impression: Severe restrictive ventilatory defect with a symmetric reduction diffusing capacity
== END 2021-06-18 23:59 | disposition home or self-care (01) ==
PROVIDERS: PCP Family Medicine; Referring Provider Nurse Practitioner Acute Care; Visit Provider Nurse Practitioner Acute Care
DX: U07.1 COVID-19 (principal); J96.00 Acute respiratory failure, unspecified whether with hypoxia or hypercapnia
CPT/HCPCS: 94060; 94726; 94729

== ENCOUNTER 2021-07-04 15:38 | Inpatient (IN) | payer OTHER, SELFPAY ==
[2021-07-04] VITALS (13 sets, daily range): BP systolic 110–136; BP diastolic 79–94; PULSE 86–130; RESP 16–20; TEMP 36.4–37.1; O2SAT 92–100; BMI 26.2
[2021-07-04 12:02] LABS: Hematocrit 47.2 % (40-54); Hemoglobin 16.9 g/dL (13.0-16.5); Mean Corp Hgb Conc 35.8 g/dL (32-36); Mean Corpuscular Hgb 32.6 pg (27.0-32.0); Mean Corpuscular Volume 91.1 fL (80-94); Mean Platelet Vol. 9.4 fl (6.2-12.0); Platelet Count 354 K/mm3 (150-450); RBC Distribution Width CV 12.4 % (11.6-14.6); RBC Distribution Width SD 41.6 fl (35.1-43.9); Red Blood Count 5.18 M/mm3 (4.6-6.2); White Blood Count 13.3 K/mm3 (4.4-11.0)
--- NOTE | 2021-07-04 12:09 | PCM.HP.BLA ---
History and Physical Date of Admission: 07/04/21 Intake Vital Signs 06/25/21 13:11 Height 5 ft 7 in Weight: 171 lb 8 oz BMI 26.9 BP 119/88 H Blood Pressure Location Rt brachial Position Sitting Respiration 18 Pulse 96 Pulse Source Monitor Temp 97.7 F L Temp Source Temporal Pulse Oximetry (%) 94 Oxygen Delivery Method room air Intake Visit Reasons: REVERSE ILEOSTOMY Chief Complaint: Discuss surgery for reverse iliostomy Gunite Mixer Required: No Accompanied by: Is patient in pain?: No Allergies No Known Allergies Allergy (Verified 06/25/21 13:12) Medications aspirin 81 mg PO DAILY 01/27/21 [History Confirmed 06/25/21] acetaminophen [Tylenol] 650 mg PO Q6H PRN 03/15/21 [History Confirmed 06/25/21] acidophilus-pectin, citrus 1 tab PO BID #60 tab 03/31/21 [Rx Confirmed 06/25/21] atorvastatin 40 mg PO QHS #30 tab 03/31/21 [Rx Confirmed 06/25/21] mirtazapine 30 mg PO QHS #60 tab 03/31/21 [Rx Confirmed 06/25/21] pantoprazole 40 mg PO DAILY #30 tab 03/31/21 [Rx Confirmed 06/25/21] carvedilol 3.125 mg tablet 1.5625 mg PO BID tab 04/18/21 [History Confirmed 06/25/21] cholecalciferol (vitamin D3) 25 mcg (1,000 unit) capsule 25 mcg PO DAILY 04/18/21 [History Confirmed 06/25/21] multivitamin 1 tab PO DAILY 04/18/21 [History Confirmed 06/25/21] turmeric root extract 500 mg capsule 500 mg PO DAILY 04/18/21 [History Confirmed 06/25/21] vit C,E,zinc,copper-nkznu9g 250 mg-lutein 5 mg-zeaxanthin 1 mg capsule 1 cap PO DAILY 04/18/21 [History Confirmed 06/25/21] FORMERLY [facility], 1928–1983 Medical History (Updated 06/25/21 @ 13:10 by Jasmyn Cook) Acute respiratory failure due to COVID-19 Acute respiratory failure with hypoxia Anastomotic leak of intestine Chronic respiratory failure with hypoxia Evisceration of bowel History of chronic hypertension Hyperlipidemia Ileostomy in place Non-smoker Perforated bowel Pneumonia due to COVID-19 virus Pneumothorax, right Surgical History History of ileostomy History of right hemicolectomy Hx of chest tube placement S/P correction of deviated nasal septum Family History Mother Diabetes Father Diabetes Social History adopted: No household members: spouse housing: house number of children: 2 current occupational status: previously employed 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 Smoking Status: Never smoker alcohol intake: never substance use type: does not use HPI HPI HPI: KEHINDE RIOJAS, is a 56 M who presents to the office today for discussion of ileostomy reversal ROS General General: Yes weight change and fatigue; No appetite, colon cancer, breast cancer or weakness HEENT HEENT: No difficulty swallowing, eye injury, eye surgery, swollen glands or hoarseness Endo Endocrine: No thyroid disease, diabetes mellitus, thyroid cancer, Hair loss, heat intolerance or cold intolerance Skin Skin: No rash or changing moles Breast Breast: No left breast lump, right breast lump, nipple discharge, breast pain, abnormal mammogram, abnormal US or breast enlargement Musc Musculoskeletal: No back problems, arthritis, rheumatoid arthritis, gout or joint pain Cardio Cardiovascular: Yes high blood pressure; No murmur, pacemaker, heart disease, atrial fibrillation, heart attack, heart stent, palpitations, shortness of breat with exertion or chest pain Psych Psychiatric: Yes depression and anxiety; No hearing voices Resp Respiratory: Yes shortness of breath, No sleep apnea, No cough, No COPD, No asthma, No emphysema and No wheezing Gastro Gastrointestinal: No abdominal pain, No nausea or vomiting, No diarrhea, No constipation, No blood in stool, No acid reflux, No hemorrhoids, No ulcers, No gallbladder problem and No black,tarry stools Benjamin Hematologic: Yes blood thinners, No blood disorders, No bleeding, No anemia and No blood clots Neuro Neurologic: No system reviewed and no additional complaints, except as documented, No as per HPI, No abnormal gait, No abnormal hearing, No abnormal movements, No abnormal speech, No behavioral changes, No burning sensations, No confusion, No convulsions, No disequilibrium, No dizziness, No localized weakness, No frequent falls, No headache(s), No lack of coordination, No loss of vision, No memory loss, No numbness, No other visual disturbances, No radicular pain, No restless legs, No sensory deficit, No syncope, No tingling, No tremor(s), No weakness and No other Exam Const General: cooperative Orientation: alert and oriented x3 HENMT Head: normal to inspection Neck Neck: normal visual inspection and full ROM Chest Chest palpation & inspection: normal inspection of the chest Resp Effort & Inspection: normal respiratory effort Auscultation: clear to auscultation bilaterally Cardio Rate: regular rate Rhythm: regular rhythm GI Inspection: non-distended Palpation: soft and nontender Skin General: no rashes or lesions noted Neuro General: patient alert and patient oriented x3 Extrem General: full ROM Psych Appearance: grossly normal Mental Status: mental status grossly normal Assessment and Plan Assessment and Plan (1) Perforated bowel: Status: Acute Plan - Dr. Jesús Wood MD: The patient has been doing well over the last few months and has gained weight. He is doing well with no complaints at this time and his incision is fully healed. I discussed laparotomy with reversal of ileostomy and anastomosis. I discussed resection of the prior incision skin. I discussed the risks of this procedure including but not limited to bleeding, infection, anastomotic leak, injury to underlying organs. I also explained the likelihood of inpatient stay following surgery. Jesús Wood MD Pager: [facility] [address] [place] [address], [address] [place] [address] Office: I have re-examined the patient. There are no clinical changes since date of exam.
[2021-07-04] MEDS: Lactated Ringers 1,000 ML 30 ML IV ×3 (12:20→15:00)
[2021-07-04 12:21] LABS: AST(SGOT) 27 U/L (15-37); Alanine Aminotransfer ALT/SGPT 47 U/L (16-61); Albumin, Serum 4.6 g/dL (3.2-5.0); Alkaline Phosphatase 85 U/L (45-117); Anion Gap 8 (5-15); BUN 13 mg/dL (7-18); BUN/Creat Ratio 14.4 RATIO (10-20); Chloride 106 mmol/L (98-107); EST Glomerular Filtration Rate 93 mL/min (>60); Est Glom Filt Rate - Afr Amer 112 mL/min (>60); Estimated Creatinine Clearance 87.73 ml/min; Globulin 4.4 g/dL (2.2-4.2); Glucose 99 mg/dL (74-106); Potassium 3.9 mmol/L (3.5-5.1); Sodium Level 138 mmol/L (136-145)
[2021-07-04] MEDS: Cefotetan 2 GM in 0.9% NS 100 ML IV (12:46)
[2021-07-04] MEDS: Bupivacaine Mpf 0.5% 30 ML VIAL (14:21)
--- NOTE | 2021-07-04 15:41 | PCM.OPRPT ---
Problems Associated Problem List Diagnoses (1) Perforated bowel: Report of Operation Date of Procedure: 07/04/21 Pre-Operative Diagnosis: History of perforated bowel and ileostomy Post-Operative Diagnosis: Same Surgery/Procedure Performed:: Open reversal of ileostomy with ileocolic anastomosis Specimen's removed: 1. Ileostomy segment 2. Mucous fistula 3. Anastomotic end Description of Procedure: Patient was brought back to the operative room and general anesthesia was induced. Colon catheter was placed. The ileostomy was sutured closed using a running 0 silk suture. The abdomen was prepped and draped in usual sterile fashion. Midline incision was made superior to the old scar and deepened to the fascia. The fascia was elevated and incised. A finger sweep was performed and then working inferiorly adhesions were taken down to open the entire incision. Next both sides the incision were raised and adhesions were taken down. Working toward the left upper quadrant the colon was identified attaching the mucous fistula. A scalpel was used to take down the mucous fistula at the skin level and it was reduced and taken down and mobilized. Next in the same fashion the small bowel ileostomy was incised the skin level and reduced through the fascia and into the abdomen and its adhesions were lysed. Next the wound protector was placed. Lysis of adhesions were carried out around the small bowel to mobilize the distal small bowel segment and then the distal small bowel was stapled proximal to the ostomy using a SENTHIL stapler. The end was sent for pathology. Next the colon was identified and in the same fashion it was dissected free from surrounding adhesions until enough of it was free to resect the end using a SENTHIL stapler. Next the small bowel was brought up to the left upper quadrant to the distal transverse colon and the ends of the staple lines were resected and a SENTHIL stapler was used to connect the small bowel to the distal transverse colon and a deaw-xo-teel functional end-to-end fashion. Next the enterostomy was closed using a TX 60 stapler. Two 3-0 silk sutures were used to create a crotch stitches. Next the abdomen was copiously irrigated and suctioned dry. Next the posterior sheath at the mucous fistula and at the prior ileostomy site were closed using 0 Vicryl suture. Next the anterior fascia at the ileostomy site was closed using running #1 PDS suture. The midline fascia was then reapproximated using running #1 PDS suture from each side meeting in the middle with interrupted 0 Prolene sutures every 2 cm. Next the subcutaneous tissue was irrigated and suctioned dry and then the prior scar tissue was removed and the skin was reapproximated in the midline using interrupted 4-0 Monocryl sutures. The mucous fistula site was closed with 1 interrupted Monocryl suture. The ileostomy site was irrigated and suctioned dry and then a small Ivis drain was placed into the incision and sutured to both sides of the incision using 4-0 nylon suture. The middle of the ileostomy site was then reapproximated using two 3-0 Vicryl sutures allowing for copious areas for drainage. Next bandages were placed and the Colon was removed. Next the patient was awoken and taken to PACU in stable condition. Admit VTE Documentation VTE Mechan Device Prophylaxis: SCD's
[2021-07-04] MEDS: Morphine 2 MG/ML Syringe IV ×2 (18:06→23:04)
[2021-07-04] MEDS: Ketorolac 15 MG/ML Vial IV (20:13)
[2021-07-04] MEDS: 0.9% Saline Lock 10 ML Syringe IV (20:13)
[2021-07-04] MEDS: Atorvastatin Calcium 40 MG Tablet PO (21:37)
[2021-07-04] MEDS: Lactated Ringers 1,000 ML 100 ML IV (21:37)
[2021-07-05] VITALS (12 sets, daily range): BP systolic 98–118; BP diastolic 66–86; PULSE 105–135; RESP 16–24; TEMP 36.6–37.1; O2SAT 89–97
--- NOTE | 2021-07-05 | COL_PTH ---
PATIENT: KEHINDE RIOJAS LOC: MS3 U#:[id number] AGE/SX: 56/M ROOM: [facility] [place]07/04/[address]: Dr. Jesús Wood MD : 1965 BED: 1 DIS: 07/08/2021 SPEC #: [id number] RECD: 07/05/21 12:50 STATUS: PJ FELIZ #: [id number] ZAIN: 07/05/21 00:[address]: Jesús Wood DEPT: SURGICAL PATHOLOGY RECD BY: Salvador Giron ENTERED: 07/05/21 12:51 SP TYPE: COLON OTHR DR: Dr. Doroteo Camacho MD Tissues: A - Colon, NOS B - Colon, NOS C - Colon, NOS Procedures: Surgery Specimen Level III Surgery Specimen Level IV HEADER OPERATION: Laparotomy with ileostomy reversal and anastomosis PRE-OP DIAGNOSIS: Perforated bowel TISSUE SUBMITTED: A ? Ileostomy, B - Mucous fistula, C ? Anastomotic end MICROSCOPIC DIAGNOSIS A. Ileostomy, segmental resection: Chronic inflammation at anastomotic site. B. Mucous fistula, excision: Mucosal hemorrhage with focal denudation consistent with fistula. C. Anastomotic end, excision: Focal serosal fibrosis and associated chronic inflammation. AM:julio 07/06/2021 MICROSCOPIC DESCRIPTION Slides are reviewed. GROSS DESCRIPTION A - Received in fixative is one container labeled with the patient's name and designated ileostomy. The specimen consists of a 4.5 cm segment of bowel with minimal attached fibrofatty tissue. Serial sections do not reveal mass lesions. No mass lesions are identified. Film Reader sections are submitted in four cassettes as follows: 1 ? open end of bowel, 2 ? stapled end of bowel, 3 & 4 ? personal financial representative portions of bowel from mid portion. B - Received in fixative is one container labeled with the patient's name and designated mucous fistula. The specimen consists of an elongated fragment of mcallister tissue measuring 3.5 x 3 x 1 cm. The broader end of the tissue is stapled. Film Reader longitudinal sections are submitted in two cassettes. C - Received in fixative is one container labeled with the patient's name and designated anastomotic end. The specimen consists of two irregular fragments of mcallister tissue ranging in size from 1 to 5 cm. Glistening mcallister mucosa is identified on the larger fragment. No mass lesions are seen. Film Reader sections from both fragments are submitted in two cassettes. / AM:julio 07/05/2021 TC:3 CPT: 50063 x2, 20084
[2021-07-05] MEDS: Morphine 2 MG/ML Syringe IV (01:49)
[2021-07-05] MEDS: Ketorolac 15 MG/ML Vial IV ×2 (05:03→13:38)
[2021-07-05 06:21] LABS: Absolute Lymphocyte Count 1.46 X10^3/uL (0.83-4.51); Basophil# 0.03 X10^3/uL; Basophil% 0.2 % (0-1); Hematocrit 40.1 % (40-54); Hemoglobin 13.6 g/dL (13.0-16.5); Lymphocyte # 1.46 X10^3/ul (0.83-4.51); Lymphocyte % 11.1 % (19-41); Mean Corp Hgb Conc 33.9 g/dL (32-36); Mean Corpuscular Hgb 31.6 pg (27.0-32.0); Mean Platelet Vol. 10.1 fl (6.2-12.0); Monocyte# 1.59 X10^3/uL; Monocyte% 12.1 % (0-10); NRBC Flagged by Analyzer 0 % (0-5); Neutrophil # 10.01 X10^3/uL (2.7-7.7); Neutrophil % 76.1 % (47-70); POSITIVE DIFFERENTIAL YES; Platelet Count 294 K/mm3 (150-450); RBC Distribution Width CV 13.2 % (11.6-14.6); RBC Distribution Width SD 45.3 fl (35.1-43.9); Red Blood Count 4.31 M/mm3 (4.6-6.2); White Blood Count 13.2 K/mm3 (4.4-11.0)
[2021-07-05 06:26] LABS: Differential Indicated SCAN CRITERIA MET
[2021-07-05 06:45] LABS: Differential Comment SCANNED
[2021-07-05] MEDS: Lactated Ringers 1,000 ML 100 ML IV ×2 (06:49→16:26)
[2021-07-05 06:55] LABS: Anion Gap 6 (5-15); BUN 23 mg/dL (7-18); Calcium,Total 8.5 mg/dL (8.5-10.1); Chloride 108 mmol/L (98-107); Creatinine, Serum 1.21 mg/dL (0.70-1.30); EST Glomerular Filtration Rate 66 mL/min (>60); Est Glom Filt Rate - Afr Amer 80 mL/min (>60); Estimated Creatinine Clearance 65.25 ml/min; Glucose 127 mg/dL (74-106); Potassium 4.2 mmol/L (3.5-5.1); Sodium Level 138 mmol/L (136-145)
--- NOTE | 2021-07-05 07:36 | PN.SURG_ITS ---
Subjective Subjective No issues overnight. Objective Data Objective Data Vital Signs: Vital Signs Temp Pulse Resp BP Pulse Ox 98.4 F 109 H 16 115/74 97 07/05/21 05:09 07/05/21 05:09 07/05/21 05:09 07/05/21 05:09 07/05/21 05:09 Oxygen Flow Rate (L/min) 2 Oxygen Delivery Method Nasal Cannula Weight: 167 lb 8.821 oz Body Mass Index (BMI) 26.2 Intake & Output: Intake and Output for Last 24 Hours 07/03/21 07/04/21 07/05/21 23:59 23:59 23:59 Intake Total 2682 / 2732 1020 / 1020 Output Total 105 / 105 700 / 700 Balance 2577 / 2627 320 / 320 Lab / Micro Data Result Diagrams: 07/05/21 05:41 07/05/21 05:41 Labs: Laboratory Results - last 24 hr 07/04/21 11:50: Sodium 138, Potassium 3.9, Chloride 106, Carbon Dioxide 24.0, Anion Gap 8, BUN 13, Creatinine 0.90, Estim Creat Clear Calc 87.73, Est GFR (MDRD) Af Amer 112, Est GFR (MDRD) Non-Af 93, BUN/Creatinine Ratio 14.4, Glucose 99, Calcium 11.0 H, Total Bilirubin 0.80, AST 27, ALT 47, Alkaline Phosphatase 85, Total Protein 9.0 H, Albumin 4.6, Globulin 4.4 H, Albumin/Globulin Ratio 1.0 07/04/21 11:50: WBC 13.3 H, RBC 5.18, Hgb 16.9 H, Hct 47.2, MCV 91.1, MCH 32.6 H , MCHC 35.8, RDW Std Deviation 41.6, RDW Coeff of Blanca 12.4, Plt Count 354, MPV 9.4 07/04/21 12:15: Blood Type A POSITIVE, Antibody Screen NEGATIVE 07/05/21 05:41: WBC 13.2 H, RBC 4.31 L, Hgb 13.6, Hct 40.1, MCV 93.0, MCH 31.6, MCHC 33.9 D, RDW Std Deviation 45.3 H, RDW Coeff of Blanca 13.2, Plt Count 294, MPV 10.1, Immature Gran % (Auto) 0.500, Neut % (Auto) 76.1 H, Lymph % (Auto) 11.1 L, [place] % (Auto) 12.1 H, Eos % (Auto) 0.0, Baso % (Auto) 0.2, Absolute Neuts (auto) 10.0 H, Absolute Lymphs (auto) 1.46, Nucleated RBC % 0, Differential Comment SCANNED, Diff Path Review August07/05/21 05:41: Sodium 138, Potassium 4.2, Chloride 108 H, Carbon Dioxide 24.0, Anion Gap 6, BUN 23 H, Creatinine 1.21, Estim Creat Clear Calc 65.25, Est GFR (MDRD) Af Amer 80, Est GFR (MDRD) Non-Af 66, BUN/Creatinine Ratio 19.0, Glucose 127 H, Calcium 8.5 Physical Exam Const oriented x3 and no apparent distress Resp normal respiratory effort GI soft to palpation Palpation: tender Assessment & Plan Assessment/Plan (1) Perforated bowel: PLAN: Was operative day 1 from ileostomy reversal. He is on ice chips and sips. His creatinine did slightly increase and I will order a fluid bolus. He is also mildly tachycardic although this could be a post Covid symptoms. Continue to monitor white count and hemoglobin tomorrow. I will start Lovenox and PPI. Encouraged ambulation and incentive spirometer. Once patient starts passing flatus I will advance his diet. Jesús Wood MD Pager: [facility] [address] [place] [address], [address] [place] [address] Office:
[2021-07-05] MEDS: oxyCODONE 5 MG Tablet PO ×2 (07:56→21:24)
[2021-07-05] MEDS: Carvedilol 3.125 MG TABLET 1.5625 MG PO ×2 (09:53→21:17)
[2021-07-05] MEDS: Enoxaparin 40 MG/0.4 ML Syringe SC (09:53)
[2021-07-05] MEDS: Acetaminophen 325 MG Tablet 650 MG PO ×3 (09:54→21:24)
[2021-07-05] MEDS: Pantoprazole Sodium 40 MG Tablet PO (09:54)
--- NOTE | 2021-07-05 10:24 | NURSING ---
pt assisted to sitting position on edge of bed on 1L O2. O2 sat decreased to 84. Pt instructed to take deep breaths. After sometime O2 normalized 92%. O2 removed and O2 sat maintained mid 90s. Pt assisted to standing position and O2 dropped to mid 80s. Reapplied O2 and increased to 2L. After deep breaths pt back up to 95%. Pt walked to window and back to bed. Complains of lightheadedness with position change. at bedside. AMIRA Jones notified.
--- NOTE | 2021-07-05 11:10 | CASEMGMT ---
AMIRA PRESTON Assessment: Face to Face with pt for initial transition planning/care coordination assessment. AMIRA PRESTON introduced self and role at [facility], pt voices understanding and consents to assessment. Pt is A/O x4 and answers all questions appropriately at this time. Pt lying in bed with O2 on in no distress. Pt at bedside. Care providers, pharmacy, and demographics verified/updated. Admitting Dx: laparotomy with ileostomy reversal PCP:Doroteo Camacho Specialists:CR Wood; christin Camacho Preferred Pharmacy: [facility] Retail Insurance: [employer] Prescription Benefit: yes LW/HPOA: Pt denies having a LW/DPOA and denies need for info regarding AD. LNOK: Carmella Ross, Living Arrangements: Pt lives with in a two story house with 5 steps to enter with a rail. Pt only uses the main level in the home. Pt reports he is I in ADL's but his does assist with dressing. Pt denies concerns at home. Transportation: Pt has not driven since January when he had COVID. transports him to medical appts. DME/HHC/SNF: Pt has O2 concentrator and portable tank through [facility]. He states he has not been using it, but it has not been sent back d/t physician needing to sign off on it. Pt has a cane he uses to go outside on uneven surfaces. Pt has a grab bar in the tub and at the toilet as well has high rise toilet. Pt has had [facility] HHC and been in the Rehab unit at [facility]. Pt states no concerns with going home at time of dc. Pt states pt has had drains before and she has cared for them. States she is well versed in his care. Pt states no further concerns/needs. CM to follow. Advised pt to ask CM if any further question/concerns/needs arise, voices understanding. Pt Goal: Home Plan: Home
[2021-07-05] MEDS: Atorvastatin Calcium 40 MG Tablet PO (21:17)
[2021-07-06 01:00] VITALS: PULSE 115; O2SAT 95
[2021-07-06] MEDS: Lactated Ringers 1,000 ML 100 ML IV ×3 (02:03→20:52)
[2021-07-06] MEDS: Ketorolac 15 MG/ML Vial IV (02:07)
[2021-07-06 03:09] VITALS: BP 105/65; PULSE 109; RESP 16; TEMP 36.8; O2SAT 96
[2021-07-06] MEDS: Acetaminophen 325 MG Tablet 650 MG PO ×3 (06:14→21:30)
[2021-07-06] MEDS: oxyCODONE 5 MG Tablet PO ×2 (06:14→13:15)
[2021-07-06 06:55] LABS: Absolute Lymphocyte Count 1.44 X10^3/uL (0.83-4.51); Absolute Neutrophil Count 13.1 X10^3/uL (2.0-7.7); Basophil# 0.06 X10^3/uL; Basophil% 0.4 % (0-1); Eosinophil# 0.17 X10^3/uL; Eosinophils% 1.1 % (0-5); Hematocrit 35.6 % (40-54); Hemoglobin 12.3 g/dL (13.0-16.5); Lymphocyte # 1.44 X10^3/ul (0.83-4.51); Lymphocyte % 8.9 % (19-41); Mean Corp Hgb Conc 34.6 g/dL (32-36); Mean Corpuscular Hgb 32.5 pg (27.0-32.0); Mean Corpuscular Volume 94.2 fL (80-94); Mean Platelet Vol. 11.1 fl (6.2-12.0); Monocyte# 1.26 X10^3/uL; Monocyte% 7.8 % (0-10); NRBC Flagged by Analyzer 0 % (0-5); Neutrophil # 13.13 X10^3/uL (2.7-7.7); Neutrophil % 81.2 % (47-70); POSITIVE COUNT YES; Platelet Count 209 K/mm3 (150-450); RBC Distribution Width CV 13.1 % (11.6-14.6); Red Blood Count 3.78 M/mm3 (4.6-6.2); White Blood Count 16.2 K/mm3 (4.4-11.0)
[2021-07-06 06:59] LABS: Differential Indicated SCAN CRITERIA MET
[2021-07-06 07:14] LABS: Anion Gap 3 (5-15); BUN 9 mg/dL (7-18); BUN/Creat Ratio 13.7 RATIO (10-20); Calcium,Total 8.9 mg/dL (8.5-10.1); Chloride 109 mmol/L (98-107); Creatinine, Serum 0.66 mg/dL (0.70-1.30); EST Glomerular Filtration Rate 135 mL/min (>60); Est Glom Filt Rate - Afr Amer 163 mL/min (>60); Estimated Creatinine Clearance 119.63 ml/min; Glucose 82 mg/dL (74-106); Potassium 3.7 mmol/L (3.5-5.1); Sodium Level 141 mmol/L (136-145)
[2021-07-06 07:20] VITALS: O2SAT 95
[2021-07-06 07:24] LABS: Platelet Morphology LARGE
--- NOTE | 2021-07-06 08:27 | RAD_ITS ---
EXAM: XR CHEST, 2 VIEWS : 1965 CLINICAL INDICATION: hypoxia TECHNIQUE: Frontal and lateral views of the chest. This report was created using BLOVES report generation technology. COMPARISON: 03/21/2021 FINDINGS: LUNGS AND PLEURAL SPACES: There are stable bilateral interstitial opacities which may represent chronic interstitial scarring. No pneumothorax. No effusion. HEART: Unremarkable. Cardiac silhouette not enlarged. MEDIASTINUM: Central airways and mediastinal contour are unremarkable. BONES/JOINTS: Unremarkable. SOFT TISSUES: Unremarkable. UPPER ABDOMEN: There is mild elevation of the right hemidiaphragm. RAD/Chest PA and Lateral IMPRESSION: Stable bilateral interstitial opacities which may represent chronic scarring. There has been very little change from the reference exam. at 1304 Reported and signed by: Norbert Cruz MD Electronically Signed: Norbert Cruz MD at 13:02 EDT ,
[2021-07-06] MEDS: Piperacil/Tazobactam 3.375 GM Q8 PREMIX IV ×3 (08:44→23:07)
[2021-07-06 08:46] VITALS: BP 104/70; PULSE 83; RESP 16; TEMP 36.7; O2SAT 96
[2021-07-06] MEDS: Enoxaparin 40 MG/0.4 ML Syringe SC (09:05)
[2021-07-06] MEDS: Pantoprazole Sodium 40 MG Tablet PO (09:05)
[2021-07-06] MEDS: Carvedilol 3.125 MG TABLET 1.5625 MG PO (09:05)
[2021-07-06 13:03] LABS: Pathologist Review Reviewed
--- NOTE | 2021-07-06 14:45 | CASEMGMT ---
Addendum entered by Le Morgan 07/06/21 14:57: AMIRA PRESTON in to pt room, pt and state they are positive the O2 is through [facility]. TC back to [facility], spoke with [facility], she was able to find the order of 3L continuous. Original Note: TC to [facility] to verify pt script for O2, customer service states an order was given for portable concentrator but pt was put on waiting list. States no O2 was ever filled. TC to [facility], they do not show that they have patient either. AMIRA PRESTON to check with pt.
[2021-07-06 14:52] VITALS: BP 105/70; PULSE 105; RESP 16; TEMP 36.7; O2SAT 97
[2021-07-06 23:04] VITALS: BP 98/68; PULSE 112; RESP 20; TEMP 37.3; O2SAT 96
[2021-07-06] MEDS: Atorvastatin Calcium 40 MG Tablet PO (23:13)
[2021-07-07] VITALS (7 sets, daily range): BP systolic 109–119; BP diastolic 74–82; PULSE 97–112; RESP 16–18; TEMP 36.6–37.1; O2SAT 94–99
[2021-07-07] MEDS: Carvedilol 3.125 MG TABLET 1.5625 MG PO ×3 (00:20→20:23)
[2021-07-07] MEDS: oxyCODONE 5 MG Tablet PO ×4 (00:34→22:13)
[2021-07-07] MEDS: Piperacil/Tazobactam 3.375 GM Q8 PREMIX IV ×3 (05:45→21:10)
[2021-07-07 06:40] LABS: Absolute Lymphocyte Count 0.84 X10^3/uL (0.83-4.51); Absolute Neutrophil Count 11.2 X10^3/uL (2.0-7.7); Basophil# 0.07 X10^3/uL; Basophil% 0.5 % (0-1); Hematocrit 34.2 % (40-54); Hemoglobin 11.6 g/dL (13.0-16.5); Lymphocyte # 0.84 X10^3/ul (0.83-4.51); Lymphocyte % 6.2 % (19-41); Mean Corp Hgb Conc 33.9 g/dL (32-36); Mean Corpuscular Hgb 31.9 pg (27.0-32.0); Mean Platelet Vol. 10.3 fl (6.2-12.0); Monocyte# 0.93 X10^3/uL; Monocyte% 6.9 % (0-10); NRBC Flagged by Analyzer 0 % (0-5); Neutrophil # 11.24 X10^3/uL (2.7-7.7); Platelet Count 255 K/mm3 (150-450); RBC Distribution Width CV 13.2 % (11.6-14.6); RBC Distribution Width SD 45.7 fl (35.1-43.9); Red Blood Count 3.64 M/mm3 (4.6-6.2); White Blood Count 13.5 K/mm3 (4.4-11.0)
--- NOTE | 2021-07-07 06:50 | PCM.PN.SRG ---
Subjective Subjective Patient reports last night he passed flatus and had a bowel movement. He reports there was a small tinge of blood in the bowel movement. He reports no nausea or vomiting or fevers or chills. Objective Data Objective Data Vital Signs: Vital Signs Temp Pulse Resp BP Pulse Ox 97.9 F 107 H 18 110/75 97 07/07/21 05:41 07/07/21 05:41 07/07/21 05:41 07/07/21 05:41 07/07/21 05:41 Oxygen Flow Rate (L/min) 2 Oxygen Delivery Method Nasal Cannula Weight: 167 lb 8.821 oz Body Mass Index (BMI) 26.2 Intake & Output: Intake and Output for Last 24 Hours 07/05/21 07/06/21 07/07/21 23:59 23:59 23:59 Intake Total 2556.67 / 2556.67 2295.00 / 2295.00 50 / 50 Output Total 1710 / 1710 200 / 425 225 / 225 Balance 846.67 / 846.67 2095.00 / 1870.00 -175 / -175 Lab / Micro Data Result Diagrams: 07/07/21 05:15 07/06/21 05:40 Labs: Laboratory Results - last 24 hr 07/05/21 05:41: Diff Path Review Reviewed 07/06/21 05:40: WBC 16.2 H, RBC 3.78 L, Hgb 12.3 L, Hct 35.6 L, MCV 94.2 H, MCH 32.5 H, MCHC 34.6, RDW Std Deviation 45.0 H, RDW Coeff of Blanca 13.1, Plt Count 209, MPV 11.1, Immature Gran % (Auto) 0.600, Neut % (Auto) 81.2 H, Lymph % (Auto) 8.9 L, Bland % (Auto) 7.8, Eos % (Auto) 1.1, Baso % (Auto) 0.4, Absolute Neuts (auto) 13.1 H, Absolute Lymphs (auto) 1.44, Nucleated RBC % 0, Plt Morphology Comment LARGE 07/06/21 05:40: Sodium 141, Potassium 3.7, Chloride 109 H, Carbon Dioxide 29.0, Anion Gap 3 L, BUN 9, Creatinine 0.66 L, Estim Creat Clear Calc 119.63, Est GFR (MDRD) Af Amer 163, Est GFR (MDRD) Non-Af 135, BUN/Creatinine Ratio 13.7, Glucose 82, Calcium 8.9 07/07/21 05:15: WBC 13.5 H, RBC 3.64 L, Hgb 11.6 L, Hct 34.2 L, MCV 94.0, MCH 31.9, MCHC 33.9, RDW Std Deviation 45.7 H, RDW Coeff of Blanca 13.2, Plt Count 255, MPV 10.3, Immature Gran % (Auto) 0.400, Neut % (Auto) 83.0 H, Lymph % (Auto) 6.2 L, Bland % (Auto) 6.9, Eos % (Auto) 3.0, Baso % (Auto) 0.5, Absolute Neuts (auto) 11.2 H, Absolute Lymphs (auto) 0.84, Nucleated RBC % 0 Radiography Diagnostic Testing: Radiology Impression Chest X-Ray 07/06/21 08:27 IMPRESSION: Stable bilateral interstitial opacities which may represent chronic scarring. There has been very little change from the reference exam. at 1304 Reported and signed by: Norbert Cruz MD Electronically Signed: Norbert Cruz MD at 13:02 EDT , Physical Exam Const oriented x3 and no apparent distress Resp normal respiratory effort Cardio regular rate and regular rhythm GI soft to palpation Palpation: tender Assessment & Plan Assessment/Plan (1) Perforated bowel: PLAN: Patient is starting to pass flatus and he did have a bowel movement. I will start him on clear liquids and advance as tolerated and Hep-Lock his IV fluids. Patient had an increased white count yesterday of unknown etiology. Chest x-ray was checked and was clear and his incision appears clear with no erythema. I did start him on some Zosyn and his white count is decreasing this morning. Continue for 1 more day and recheck in the morning. Jesús oWod MD Pager: [facility] [address] [place] [address], [facility] [address] [place] [address] Office:
[2021-07-07 07:02] LABS: Anion Gap 6 (5-15); BUN 9 mg/dL (7-18); BUN/Creat Ratio 14.4 RATIO (10-20); Calcium,Total 9.3 mg/dL (8.5-10.1); Chloride 106 mmol/L (98-107); Creatinine, Serum 0.62 mg/dL (0.70-1.30); EST Glomerular Filtration Rate 143 mL/min (>60); Est Glom Filt Rate - Afr Amer 173 mL/min (>60); Estimated Creatinine Clearance 127.34 ml/min; Glucose 74 mg/dL (74-106); Potassium 3.1 mmol/L (3.5-5.1); Sodium Level 142 mmol/L (136-145)
[2021-07-07] MEDS: Enoxaparin 40 MG/0.4 ML Syringe SC (08:48)
[2021-07-07] MEDS: Pantoprazole Sodium 40 MG Tablet PO (08:48)
[2021-07-07] MEDS: Potassium Chloride Oral Tablet 20 MEQ 40 MEQ PO (08:52)
[2021-07-07] MEDS: Acetaminophen 325 MG Tablet 650 MG PO (17:52)
[2021-07-07] MEDS: Atorvastatin Calcium 40 MG Tablet PO (20:22)
[2021-07-08 02:34] VITALS: BP 110/69; PULSE 72; RESP 18; TEMP 36.6; O2SAT 98
[2021-07-08] MEDS: Piperacil/Tazobactam 3.375 GM Q8 PREMIX IV (05:51)
[2021-07-08 05:55] LABS: Absolute Lymphocyte Count 0.97 X10^3/uL (0.83-4.51); Absolute Neutrophil Count 7.8 X10^3/uL (2.0-7.7); Basophil# 0.06 X10^3/uL; Basophil% 0.6 % (0-1); Eosinophil# 0.82 X10^3/uL; Eosinophils% 7.8 % (0-5); Hematocrit 32.9 % (40-54); Lymphocyte # 0.97 X10^3/ul (0.83-4.51); Lymphocyte % 9.2 % (19-41); Mean Corp Hgb Conc 33.4 g/dL (32-36); Mean Corpuscular Hgb 32.2 pg (27.0-32.0); Mean Corpuscular Volume 96.2 fL (80-94); Mean Platelet Vol. 9.5 fl (6.2-12.0); Monocyte# 0.82 X10^3/uL; Monocyte% 7.8 % (0-10); NRBC Flagged by Analyzer 0 % (0-5); Neutrophil # 7.77 X10^3/uL (2.7-7.7); Platelet Count 265 K/mm3 (150-450); RBC Distribution Width CV 13.2 % (11.6-14.6); RBC Distribution Width SD 46.9 fl (35.1-43.9); Red Blood Count 3.42 M/mm3 (4.6-6.2); White Blood Count 10.5 K/mm3 (4.4-11.0)
[2021-07-08 06:20] LABS: Anion Gap 3 (5-15); BUN 9 mg/dL (7-18); BUN/Creat Ratio 14.6 RATIO (10-20); Calcium,Total 8.9 mg/dL (8.5-10.1); Chloride 105 mmol/L (98-107); Creatinine, Serum 0.62 mg/dL (0.70-1.30); EST Glomerular Filtration Rate 145 mL/min (>60); Est Glom Filt Rate - Afr Amer 175 mL/min (>60); Estimated Creatinine Clearance 127.34 ml/min; Glucose 92 mg/dL (74-106); Sodium Level 140 mmol/L (136-145)
[2021-07-08 07:15] VITALS: O2SAT 95
[2021-07-08 07:17] VITALS: BP 110/85; PULSE 90; RESP 14; TEMP 36.7; O2SAT 97
[2021-07-08] MEDS: Enoxaparin 40 MG/0.4 ML Syringe SC (07:21)
[2021-07-08] MEDS: Carvedilol 3.125 MG TABLET 1.5625 MG PO (07:21)
[2021-07-08] MEDS: Pantoprazole Sodium 40 MG Tablet PO (07:22)
--- NOTE | 2021-07-08 08:39 | PN.SURG_ITS ---
Subjective Subjective Patient reports he is doing very well. He is having bowel movements and tolerating a diet. Objective Data Objective Data Vital Signs: Vital Signs Temp Pulse Resp BP Pulse Ox 98.0 F 90 14 110/85 H 97 07/08/21 07:17 07/08/21 07:17 07/08/21 07:17 07/08/21 07:17 07/08/21 07:17 Oxygen Flow Rate (L/min) 2 Oxygen Delivery Method Nasal Cannula Weight: 167 lb 8.821 oz Body Mass Index (BMI) 26.2 Intake & Output: Intake and Output for Last 24 Hours 07/06/21 07/07/21 07/08/21 23:59 23:59 23:59 Intake Total 2295.00 / 2295.00 1000 / 1000 50 / 50 Output Total 200 / 425 225 / 225 150 / 150 Balance 2095.00 / 1870.00 775 / 775 -100 / -100 Lab / Micro Data Result Diagrams: 07/08/21 05:35 07/08/21 05:35 Labs: Laboratory Results - last 24 hr 07/08/21 05:35: WBC 10.5, RBC 3.42 L, Hgb 11.0 L, Hct 32.9 L, MCV 96.2 H, MCH 32.2 H, MCHC 33.4, RDW Std Deviation 46.9 H, RDW Coeff of Blanca 13.2, Plt Count 265, MPV 9.5, Immature Gran % (Auto) 0.600, Neut % (Auto) 74.0 H, Lymph % (Auto) 9.2 L, [place] % (Auto) 7.8, Eos % (Auto) 7.8 H, Baso % (Auto) 0.6, Absolute Neuts (auto) 7.8 H, Absolute Lymphs (auto) 0.97, Nucleated RBC % 0 07/08/21 05:35: Sodium 140, Potassium 3.0 L, Chloride 105, Carbon Dioxide 32.0, Anion Gap 3 L, BUN 9, Creatinine 0.62 L, Estim Creat Clear Calc 127.34, Est GFR (MDRD) Af Amer 175, Est GFR (MDRD) Non-Af 145, BUN/Creatinine Ratio 14.6, Glucose 92, Calcium 8.9 Physical Exam Const alert and oriented x3 Resp normal respiratory effort and normal air movement Cardio regular rate and regular rhythm GI soft to palpation, non-tender and non-distended Assessment & Plan Assessment/Plan (1) Perforated bowel: PLAN: Patient is doing well. He is still on oxygen but I believe this is some sequela of his Covid. I will discharge him home today and he has home oxygen that he is able to take if his oxygen saturation is below 90. Jesús Wood MD Pager: [facility] [address] [place] [address], [address] [place] [address] Office:
--- NOTE | 2021-07-08 08:41 | PCM.DC.SUM ---
Providers Date of Admission: 07/04/21 Primary Care Physician: Dr. Doroteo Camacho MD Reason For Visit: LAPAROTOMY WITH ILEOSTOMY REVERSAL Diagnosis Discharge Diagnosis (1) Perforated bowel: Status: Acute Code(s): K63.1 - Perforation of intestine (nontraumatic) Medications at Discharge Home Medications aspirin 81 mg PO DAILY 01/27/21 acetaminophen [Tylenol] 650 mg PO Q6H PRN 03/15/21 atorvastatin 40 mg PO QHS #30 tab 03/31/21 pantoprazole 40 mg PO DAILY #30 tab 03/31/21 carvedilol 3.125 mg tablet 1.5625 mg PO BID tab 04/18/21 cholecalciferol (vitamin D3) 25 mcg (1,000 unit) capsule 25 mcg PO DAILY 04/18/21 multivitamin 1 tab PO DAILY 04/18/21 turmeric root extract 500 mg capsule 500 mg PO DAILY 04/18/21 vit C,E,zinc,copper-jocnu7q 250 mg-lutein 5 mg-zeaxanthin 1 mg capsule 1 cap PO DAILY 04/18/21 acidophilus-pectin, citrus 1 tab PO DAILY 06/28/21 mirtazapine 15 mg PO QHS 06/28/21 zinc 1 tab PO DAILY 06/28/21 oxycodone 5 - 10 mg PO Q4H PRN PRN 5 Days #30 tab 07/08/21 Hospital Course Operations - (Ileostomy reversal) Summary of Care Provided Hospital Course: Patient was admitted for elective ileostomy reversal. The following day he was started on clear liquid diet and the day after that he was doing well and now he is tolerating a regular diet. He will be discharged home on home O2 and follow-up with me next week for drain removal. Weight / BMI Weight Weight: 167 lb 8.821 oz Body Mass Index (BMI) 26.2 ABG / Lab / Microbiology Data Result Diagrams: 07/08/21 05:35 07/08/21 05:35 Laboratory: Laboratory Results - last 24 hr 07/08/21 05:35: WBC 10.5, RBC 3.42 L, Hgb 11.0 L, Hct 32.9 L, MCV 96.2 H, MCH 32.2 H, MCHC 33.4, RDW Std Deviation 46.9 H, RDW Coeff of Blanca 13.2, Plt Count 265, MPV 9.5, Immature Gran % (Auto) 0.600, Neut % (Auto) 74.0 H, Lymph % (Auto) 9.2 L, [place] % (Auto) 7.8, Eos % (Auto) 7.8 H, Baso % (Auto) 0.6, Absolute Neuts (auto) 7.8 H, Absolute Lymphs (auto) 0.97, Nucleated RBC % 0 07/08/21 05:35: Sodium 140, Potassium 3.0 L, Chloride 105, Carbon Dioxide 32.0, Anion Gap 3 L, BUN 9, Creatinine 0.62 L, Estim Creat Clear Calc 127.34, Est GFR (MDRD) Af Amer 175, Est GFR (MDRD) Non-Af 145, BUN/Creatinine Ratio 14.6, Glucose 92, Calcium 8.9 D/C Instructions Discharge Diet: Light diet - advance as tolerated Discharge Activity: May Not Drive (No driving for 1 week or while taking narcotic pain meds.) and May Shower Lifting Restrictions: 10 pounds Call your doctor if your incision/area has: Continuous Slow Oozing, Sudden Increased Bleeding, Increased Pain/ Swelling, Increased Redness, Foul Smelling Discharge and Swelling at the incision site Call your doctor if you observe: Fever of 101 or Higher Suture Line Care: Avoid Pulling/Pushing and Avoid Pinching/Bending Change Dressing in: Daily Cleanse incision/area with: Soap & Water Please Follow Up With: Jesús Wood MD When: Please call Friday to schedule 1 week follow up appointment. [phone] Meaningful Use Info Meaningful Use Diagnoses (Choose all that apply): None applicable Discharge Plan Admission Admit Date/Time: 07/04/21 15:38 Attending Provider: Jesús Wood Primary Care Provider: Doroteo Camacho Discharge Orders/Prescriptions Prescriptions: New oxycodone 5 mg Tablet 5 - 10 mg PO Q4H PRN PRN (Reason: Pain Score 4-10) 5 Days Qty: 30 RF: 0 Continued carvedilol 3.125 mg tablet 1.5625 mg PO BID RF: 0 turmeric root extract 500 mg capsule 500 mg PO DAILY RF: 0 multivitamin Tablet 1 tab PO DAILY RF: 0 cholecalciferol (vitamin D3) 25 mcg (1,000 unit) capsule 25 mcg PO DAILY RF: 0 Ocuvite Adult 50 Plus 250-5-1 mg capsule 1 cap PO DAILY RF: 0 aspirin 81 mg Tablet,Delayed Release (Dr/Ec) 81 mg PO DAILY RF: 0 acetaminophen [Tylenol] 325 mg Tablet 650 mg PO Q6H PRN (Reason: Pain (Scale Score 4-6)) RF: 0 atorvastatin 40 mg tablet 40 mg PO QHS Qty: 30 RF: 0 pantoprazole 40 mg Tablet,Delayed Release (Dr/Ec) 40 mg PO DAILY Qty: 30 RF: 0 zinc Tablet,Chewable 1 tab PO DAILY RF: 0 mirtazapine 15 mg tablet 15 mg PO QHS RF: 0 acidophilus-pectin, citrus 25 million cell -100 mg tablet 1 tab PO DAILY RF: 0 Referrals / Follow Up: Doroteo Camacho MD [Primary Care Provider] - Disposition Disposition (needs filled in before D/C Order can be placed): Home, Self Care
[2021-07-08] MEDS: Acetaminophen 325 MG Tablet 650 MG PO ×2 (08:52→13:14)
[2021-07-08] MEDS: oxyCODONE 5 MG Tablet PO ×2 (08:52→13:14)
[2021-07-08] MEDS: Potassium Chloride 10mEq/100mL 10 MEQ/100 ML IV.SOLN. 90 MEQ IV BOLUS (09:08)
[2021-07-08] MEDS: Potassium Chloride 10mEq/100mL 10 MEQ/100 ML IV.SOLN. 70 MEQ IV BOLUS (10:12)
[2021-07-08] MEDS: Potassium Chloride 10mEq/100mL 10 MEQ/100 ML IV.SOLN. 60 MEQ IV BOLUS (11:45)
== END 2021-07-08 13:33 | disposition home or self-care (01) | DRG 330 ==
PROVIDERS: Anesthesiology; Admitting Provider Surgery; PCP Family Medicine; Referring Provider Surgery; Visit Provider Surgery
PROC: 0DQB0ZZ Repair Ileum, Open Approach (ICD-10-PCS; CPT 49000; principal; 2021-07-04 12:20)
DX: Z43.2 Encounter for attention to ileostomy (principal); N17.9 Acute kidney failure, unspecified; E78.5 Hyperlipidemia, unspecified; I10 Essential (primary) hypertension; E86.0 Dehydration; U09.9 Post COVID-19 condition, unspecified; Z79.899 Other long term (current) drug therapy; Z79.82 Long term (current) use of aspirin
CPT/HCPCS: 36415; 71046; 80048; 80053; 85025; 85027; 86850; 86900; 86901; 88304; 88305; 99251; J7040; J7050; J7120; A4216; G0463; J2405

== ENCOUNTER 2021-07-10 12:24 | Inpatient (IN) | payer OTHER, SELFPAY ==
--- NOTE | 2021-07-10 11:45 | PCM.HP.BLA ---
History and Physical Date of Admission: 07/10/21 Intake Intake Visit Reasons: F/U ILEOSTOMY REVERSAL Chief Complaint: Discuss surgery for reverse iliostomy Allergies No Known Allergies Allergy (Verified 07/10/21 10:27) Medications aspirin 81 mg PO DAILY 01/27/21 [History Confirmed 07/10/21] acetaminophen [Tylenol] 650 mg PO Q6H PRN 03/15/21 [History Confirmed 07/10/21] atorvastatin 40 mg PO QHS #30 tab 03/31/21 [Rx Confirmed 07/10/21] pantoprazole 40 mg PO DAILY #30 tab 03/31/21 [Rx Confirmed 07/10/21] carvedilol 3.125 mg tablet 1.5625 mg PO BID tab 04/18/21 [History Confirmed 07/10/21] cholecalciferol (vitamin D3) 25 mcg (1,000 unit) capsule 25 mcg PO DAILY 04/18/21 [History Confirmed 07/10/21] multivitamin 1 tab PO DAILY 04/18/21 [History Confirmed 07/10/21] turmeric root extract 500 mg capsule 500 mg PO DAILY 04/18/21 [History Confirmed 07/10/21] vit C,E,zinc,copper-iohud2z 250 mg-lutein 5 mg-zeaxanthin 1 mg capsule 1 cap PO DAILY 04/18/21 [History Confirmed 07/10/21] acidophilus-pectin, citrus 1 tab PO DAILY 06/28/21 [History Confirmed 07/10/21] mirtazapine 15 mg PO QHS 06/28/21 [History Confirmed 07/10/21] zinc 1 tab PO DAILY 06/28/21 [History Confirmed 07/10/21] oxycodone 5 - 10 mg PO Q4H PRN 5 Days #30 tab 07/08/21 [Rx Confirmed 07/10/21] oxycodone 5 - 10 mg PO Q4H PRN PRN 5 Days #30 tab 07/08/21 [Rx Confirmed 07/10/21] PFSH Medical History Acute respiratory failure due to COVID-19 Acute respiratory failure with hypoxia Alcohol use Anastomotic leak of intestine Anxiety Arthritis Chronic respiratory failure with hypoxia Depression Evisceration of bowel History of chronic hypertension History of echocardiogram Hyperlipidemia Ileostomy in place Non-smoker Perforated bowel Pneumonia due to COVID-19 virus Pneumothorax, right Shortness of breath on exertion Wears glasses Surgical History History of ileostomy History of right hemicolectomy Hx of chest tube placement S/P correction of deviated nasal septum Family History Mother Diabetes Father Diabetes Social History adopted: No household members: spouse housing: house number of children: 2 current occupational status: previously employed 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 The patient had ileostomy reversal 1 week ago and was doing well until this morning when he coughed and there was a large rest of fluid from his incision. He has been tolerating diet and having normal bowel movements with no abdominal pain up until this point. He says it did hurt when he coughed today. Exam Const General: cooperative Orientation: alert and oriented x3 HENMT Head: normal to inspection Neck Neck: normal visual inspection and full ROM Chest Chest palpation & inspection: normal inspection of the chest Resp Effort & Inspection: normal respiratory effort Auscultation: clear to auscultation bilaterally Cardio Rate: regular rate Rhythm: regular rhythm GI Inspection: non-distended Palpation: soft and tender Other: Patient had clear serous drainage from his incision with no erythema or ecchymosis. Skin General: no rashes or lesions noted Neuro General: patient alert and patient oriented x3 Extrem General: full ROM Psych Appearance: grossly normal Mental Status: mental status grossly normal Assessment and Plan Assessment and Plan (1) Postoperative wound dehiscence: Status: Acute Qualifiers: Encounter type: initial encounter Qualified Code(s): T81.31XA - Disruption of external operation (surgical) wound, not elsewhere classified, initial encounter Plan - Dr. Jesús Wood MD: The patient experienced a large huston of serous fluid from his incision. In the office I opened the skin and examined below the skin. There was an area of 2 cm x 2 cm dehiscence with exposed small bowel. I recommended return to the operating room for closure of this and possible exploration. I discussed the risks including not limited to bleeding, infection, need for further resection or closure with possible retention sutures. Patient understands the risks and will present downstairs for surgery and I will take him this afternoon for reexploration of the wound and closure of the dehiscence. Jesús Wood MD Pager: [facility] [address] [place] [address], [address] [place] [address] Office: I have re-examined the patient. There are no clinical changes since date of exam.
[2021-07-10 11:58] VITALS: BP 109/76; PULSE 73; RESP 18; TEMP 36.6; O2SAT 98; BMI 26.4
[2021-07-10 12:12] LABS: Potassium 2.6 mmol/L (3.5-5.1)
--- NOTE | 2021-07-10 12:14 | EKG12_ITS ---
Test Reason : ABN LABS Blood Pressure : / mmHG Vent. Rate : 078 BPM Atrial Rate : 078 BPM P-R Int : 202 ms QRS Dur : 082 ms QT Int : 392 ms P-R-T Axes : 024 007 028 degrees QTc Int : 446 ms Normal sinus rhythm with sinus arrhythmia Normal ECG Confirmed by SAVANNA WILSON, JACKELIN ([id number]), editorial intern FELIX MILES ([id number]) on 07/12/2021 10:01:25 AM Referred By: NAKUL Confirmed By:JACKELIN CORRALES MD
[2021-07-10 13:23] LABS: Magnesium 2.2 mg/dL (1.6-2.6)
[2021-07-10 13:24] LABS: Phosphorus 2.5 mg/dL (2.5-4.9)
--- NOTE | 2021-07-10 13:37 | PN_ITS ---
Progress Note To take the patient to surgery but the potassium was too low to undergo anesthesia. 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 The nurses were unable to get a peripheral IV and so I discussed right IJ central line with the patient. I discussed the risks of bleeding, infection, pneumothorax. Patient understood the risks and was willing to proceed. I placed an ultrasound-guided right IJ triple-lumen catheter. Patient will be brought to the floor and started on IV fluids and he will be given clear liquids tonight and n.p.o. after midnight. I will start him on antibiotics. Plan for surgery tomorrow. Jesús Wood MD Pager: [facility] [address] [place] [address], [address] [place] [address] Office:
--- NOTE | 2021-07-10 13:38 | OP.PCM_ITS ---
Problems Associated Problem List Diagnoses (1) Postoperative wound dehiscence: Report of Operation Date of Procedure: 07/10/21 Pre-Operative Diagnosis: Need for vascular access for potassium repletion Post-Operative Diagnosis: Same Surgery/Procedure Performed:: Ultrasound-guided right central line placement utilizing right IJ Description of Procedure: Patient was brought to PACU and placed in supine position. The right neck was prepped and draped in usual sterile fashion. Ultrasound was used to localize the right IJ. Next a small area of skin was injected with local anesthetic and a small incision was made with a scalpel. Guidance needle was placed under ultrasound guidance into the right IJ. Next the syringe was removed and the wire was placed to the needle with no resi stance. The needle was then removed and a dilator was placed over the guidewire. The dilator was then removed and the catheter was placed over the guidewire. The guidewire removed. All of the ports were aspirated and flushed and they all aspirated and flushed easily. Caps were placed. The catheter was then sutured to the skin using the included 3-0 silk suture. Biopatch was placed. Dressing was placed. Chest x-ray is pending. Patient tolerated the procedure well.
--- NOTE | 2021-07-10 13:43 | SUR.PREOP ---
REPORT CALLED TO [facility] LACTATION CONSULTANT BY THIS NURSE. PT TO BE TRANSFERRED TO [facility] AFTER CHEST XRAY.
--- NOTE | 2021-07-10 13:52 | RAD_ITS ---
EXAM: XR CHEST, 1 VIEW : 1965 CLINICAL INDICATION: central line placement TECHNIQUE: Frontal view of the chest. This report was created using [employer] report generation technology. COMPARISON: 07/06/2021 FINDINGS: LUNGS AND PLEURAL SPACES: There is bibasilar airspace disease. There has been improved aeration the reference exam. No pneumothorax. No effusion. HEART: Unremarkable. Cardiac silhouette not enlarged. MEDIASTINUM: Central airways and mediastinal contour are unremarkable. BONES/JOINTS: Unremarkable. SOFT TISSUES: Unremarkable. TUBES, LINES AND DEVICES: Right jugular catheter is in place with the distal tip overlying the superior vena cava. RAD/CXR for Line Placement IMPRESSION: Bibasilar airspace disease which is decreased from the reference examination may represent improving edema or pneumonia. Right central venous catheter in good position. at 1649 Reported and signed by: Norbert Cruz MD Electronically Signed: Norbert Cruz MD at 16:48 EDT ,
[2021-07-10 14:24] VITALS: BMI 27.0
[2021-07-10 14:26] VITALS: BP 130/96; PULSE 96; RESP 16; TEMP 36.6; O2SAT 94
--- NOTE | 2021-07-10 14:53 | WOUNDNOTE ---
Pt was 100% on 3L after back to bed from the bathroom. Pt decreased to 2L. Pt has own pulse ox in room and checks his level frequently. Pt had small soft brown BM.
[2021-07-10] MEDS: 0.9% Normal Saline 1,000 ML 100 ML IV ×2 (14:55→23:41)
[2021-07-10] MEDS: Potassium Chloride 10mEq/100mL 10 MEQ/100 ML IV.SOLN. 100 MEQ IV BOLUS ×7 (14:55→23:39)
--- NOTE | 2021-07-10 14:55 | WOUNDNOTE ---
wound photo: abdomen
[2021-07-10] MEDS: oxyCODONE 5 MG Tablet PO ×2 (15:00→19:35)
[2021-07-10] MEDS: Acetaminophen 325 MG Tablet 650 MG PO ×2 (15:00→22:32)
[2021-07-10] MEDS: Piperacil/Tazobactam 3.375 GM Q8 PREMIX IV ×2 (15:02→22:23)
[2021-07-10 16:12] VITALS: PULSE 78; RESP 18; O2SAT 96
[2021-07-10 16:15] VITALS: O2SAT 96
[2021-07-10 18:11] VITALS: BP 120/76; PULSE 81; RESP 18; TEMP 36.8; O2SAT 98
[2021-07-10 22:30] VITALS: BP 132/72; PULSE 96; RESP 18; TEMP 36.6; O2SAT 97
[2021-07-10] MEDS: Ketorolac 15 MG/ML Vial IV (22:34)
[2021-07-10] MEDS: 0.9% Saline Lock 10 ML Syringe IV (22:35)
[2021-07-10 23:09] LABS: Potassium 3.2 mmol/L (3.5-5.1)
[2021-07-11] VITALS (7 sets, daily range): BP systolic 109–133; BP diastolic 76–92; PULSE 78–103; RESP 16; TEMP 36.2–37.1; O2SAT 92–100
[2021-07-11] MEDS: Potassium Chloride 10mEq/100mL 10 MEQ/100 ML IV.SOLN. 100 MEQ IV BOLUS ×3 (00:41→02:59)
[2021-07-11] MEDS: Piperacil/Tazobactam 3.375 GM Q8 PREMIX IV ×2 (05:02→14:25)
[2021-07-11 06:14] LABS: Absolute Lymphocyte Count 1.46 X10^3/uL (0.83-4.51); Absolute Neutrophil Count 7.8 X10^3/uL (2.0-7.7); Basophil# 0.08 X10^3/uL; Basophil% 0.7 % (0-1); Eosinophil# 0.69 X10^3/uL; Eosinophils% 6.3 % (0-5); Lymphocyte # 1.46 X10^3/ul (0.83-4.51); Lymphocyte % 13.3 % (19-41); Mean Corp Hgb Conc 33.3 g/dL (32-36); Mean Corpuscular Hgb 31.6 pg (27.0-32.0); Mean Corpuscular Volume 94.8 fL (80-94); Mean Platelet Vol. 9.5 fl (6.2-12.0); Monocyte% 8.2 % (0-10); NRBC Flagged by Analyzer 0 % (0-5); Neutrophil # 7.81 X10^3/uL (2.7-7.7); Neutrophil % 71.1 % (47-70); Platelet Count 294 K/mm3 (150-450); RBC Distribution Width CV 13.2 % (11.6-14.6); RBC Distribution Width SD 45.2 fl (35.1-43.9); Red Blood Count 3.48 M/mm3 (4.6-6.2)
[2021-07-11 06:42] LABS: Anion Gap 6 (5-15); BUN 3 mg/dL (7-18); BUN/Creat Ratio 7.6 RATIO (10-20); Calcium,Total 8.3 mg/dL (8.5-10.1); Chloride 103 mmol/L (98-107); EST Glomerular Filtration Rate 241 mL/min (>60); Est Glom Filt Rate - Afr Amer 291 mL/min (>60); Estimated Creatinine Clearance 204.25 ml/min; Glucose 68 mg/dL (74-106); Potassium 3.2 mmol/L (3.5-5.1); Sodium Level 140 mmol/L (136-145)
--- NOTE | 2021-07-11 07:04 | PN.SURG_ITS ---
Subjective Subjective Patient had no issues overnight Objective Data Objective Data Vital Signs: Vital Signs Temp Pulse Resp BP Pulse Ox 97.9 F 94 16 117/80 95 07/11/21 03:03 07/11/21 03:03 07/11/21 03:03 07/11/21 03:03 07/11/21 03:03 Oxygen Flow Rate (L/min) 2 Oxygen Delivery Method Nasal Cannula Weight: 178 lb Body Mass Index (BMI) 27.0 Intake & Output: Intake and Output for Last 24 Hours 07/09/21 07/10/21 07/11/21 23:59 23:59 23:59 Intake Total 1527.17 / 1527.17 450 / 450 Output Total 300 / 300 Balance 1227.17 / 1227.17 450 / 450 Lab / Micro Data Result Diagrams: 07/11/21 05:26 07/11/21 05:26 Labs: Laboratory Results - last 24 hr 07/10/21 11:50: Potassium 2.6 L* 07/10/21 11:50: Magnesium 2.2 07/10/21 11:50: Phosphorus 2.5 07/10/21 22:55: Potassium 3.2 L 07/11/21 05:26: WBC 11.0, RBC 3.48 L, Hgb 11.0 L, Hct 33.0 L, MCV 94.8 H, MCH 31.6, MCHC 33.3, RDW Std Deviation 45.2 H, RDW Coeff of Blanca 13.2, Plt Count 294, MPV 9.5, Immature Gran % (Auto) 0.400, Neut % (Auto) 71.1 H, Lymph % (Auto) 13.3 L, [place] % (Auto) 8.2, Eos % (Auto) 6.3 H, Baso % (Auto) 0.7, Absolute Neuts (auto) 7.8 H, Absolute Lymphs (auto) 1.46, Nucleated RBC % 0 07/11/21 05:26: Sodium 140, Potassium 3.2 L, Chloride 103, Carbon Dioxide 31.0, Anion Gap 6, BUN 3 L, Creatinine 0.40 L, Estim Creat Clear Calc 204.25, Est GFR (MDRD) Af Amer 291, Est GFR (MDRD) Non-Af 241, BUN/Creatinine Ratio 7.6 L, Glucose 68 L, Calcium 8.3 L Radiography Diagnostic Testing: Radiology Impression Chest X-Ray 07/10/21 13:52 IMPRESSION: Bibasilar airspace disease which is decreased from the reference examination may represent improving edema or pneumonia. Right central venous catheter in good position. at 1649 Reported and signed by: Norbert Cruz MD Electronically Signed: Norbert Cruz MD at 16:48 EDT , Assessment & Plan Assessment/Plan (1) Postoperative wound dehiscence: QUALIFIERS: Encounter type: initial encounter Qualified Code(s): T81.31XA - Disruption of external operation (surgical) wound, not elsewhere classified, initial encounter PLAN: Had severe hypokalemia yesterday which was replaced throughout the evening and he is still slightly hypokalemic at 3.2 and I am ordering another 40 mEq of potassium. Patient has a central line. Plan for closure of dehiscence this morning at 10 AM. Jesús Wood MD Pager: [facility] [address] [place] [address], [address] [place] [phone] Office:
[2021-07-11] MEDS: Potassium Chloride 20mEq/100mL 20 MEQ/100 ML IV.SOLN. 50 MEQ IV BOLUS ×2 (07:41→09:08)
[2021-07-11] MEDS: Bupivacaine Mpf 0.5% 30 ML VIAL (10:33)
--- NOTE | 2021-07-11 10:57 | OP.PCM_ITS ---
Problems Associated Problem List Diagnoses (1) Postoperative wound dehiscence: Report of Operation Date of Procedure: 07/11/21 Pre-Operative Diagnosis: Postoperative wound dehiscence Post-Operative Diagnosis: Same Surgery/Procedure Performed:: Exploration of wound with closure of wound dehiscence, complex Description of Procedure: Patient was brought back to the operating room and ge neral anesthesia was induced. The abdomen was prepped and draped in usual sterile fashion. A few of the skin incisions were opened and the skin was opened more to allow visualization of the fascia. The fascia was inspected and a finger sweep was performed to sweep the bowel away from the anterior abdominal wall circumferentially. There is no purulent material. It was irrigated and suctioned dry. Next from the top to the bottom of the dehisced area interrupted and [id number] Prolene sutures were used to close the fascia. The fascia was adequately closed and appeared strong. The subcutaneous tissue was irrigated and suctioned dry. Local anesthetic was injected in the skin. Next a few 4-0 Monocryl sutures were used to loosely close the skin. Dressing was applied and patient was taken to PACU in stable condition. Admit VTE Documentation VTE Mechan Device Prophylaxis: SCD's
--- NOTE | 2021-07-11 11:03 | DS.PCM_ITS ---
Providers Date of Admission: 07/10/21 Primary Care Physician: Dr. Doroteo Camacho MD Consultations 07/10/21 12:30 Consult: Onc/Wound/lining stuffer Routine Comment: Reason for Consult:: Wet to dry dressing BID Comments:: ABD padding on top Diagnosis Discharge Diagnosis (1) Postoperative wound dehiscence: Status: Acute Code(s): T81.31XA - Disruption of external operation (surgical) wound, not elsewhere classified, initial encounter Qualifiers: Encounter type: initial encounter Qualified Code(s): T81.31XA - Disr uption of external operation (surgical) wound, not elsewhere classified, initial encounter Medications at Discharge Home Medications aspirin 81 mg PO DAILY 01/27/21 acetaminophen [Tylenol] 650 mg PO Q6H PRN 03/15/21 atorvastatin 40 mg PO QHS #30 tab 03/31/21 pantoprazole 40 mg PO DAILY #30 tab 03/31/21 carvedilol 3.125 mg tablet 1.5625 mg PO BID tab 04/18/21 cholecalciferol (vitamin D3) 25 mcg (1,000 unit) capsule 25 mcg PO DAILY 04/18/21 multivitamin 1 tab PO DAILY 04/18/21 turmeric root extract 500 mg capsule 500 mg PO DAILY 04/18/21 vit C,E,zinc,copper-zwpjl2n 250 mg-lutein 5 mg-zeaxanthin 1 mg capsule 1 cap PO DAILY 04/18/21 acidophilus-pectin, citrus 1 tab PO DAILY 06/28/21 mirtazapine 15 mg PO QHS 06/28/21 zinc 1 tab PO DAILY 06/28/21 oxycodone 5 - 10 mg PO Q4H PRN 5 Days #30 tab 07/08/21 oxycodone 5 - 10 mg PO Q4H PRN PRN 5 Days #30 tab 07/08/21 potassium chloride [Klor-Con M20] 20 meq PO BIDCM #30 tab 07/11/21 Hospital Course Summary of Care Provided Hospital Course: Patient was admitted to the office after finding out a small area of his fascia had dehisced. Patient was found to be hypokalemic and admitted overnight for potassium replacement and a central line was placed. The following day the potassium was adequate and patient was taken to the operating room for closure of the fascia. Patient tolerated the procedure well and was started on a diet following surgery. He was then discharged home. Weight / BMI Weight Weight: 178 lb Body Mass Index (BMI) 27.0 ABG / Lab / Microbiology Data Result Diagrams: 07/11/21 05:26 07/11/21 05:26 Laboratory: Laboratory Results - last 24 hr 07/10/21 11:50: Potassium 2.6 L* 07/10/21 11:50: Magnesium 2.2 07/10/21 11:50: Phosphorus 2.5 07/10/21 22:55: Potassium 3.2 L 07/11/21 05:26: WBC 11.0, RBC 3.48 L, Hgb 11.0 L, Hct 33.0 L, MCV 94.8 H, MCH 31.6, MCHC 33.3, RDW Std Deviation 45.2 H, RDW Coeff of Blanca 13.2, Plt Count 294, MPV 9.5, Immature Gran % (Auto) 0.400, Neut % (Auto) 71.1 H, Lymph % (Auto) 13.3 L, [place] % (Auto) 8.2, Eos % (Auto) 6.3 H, Baso % (Auto) 0.7, Absolute Neuts (auto) 7.8 H, Absolute Lymphs (auto) 1.46, Nucleated RBC % 0 07/11/21 05:26: Sodium 140, Potassium 3.2 L, Chloride 103, Carbon Dioxide 31.0, Anion Gap 6, BUN 3 L, Creatinine 0.40 L, Estim Creat Clear Calc 204.25, Est GFR (MDRD) Af Amer 291, Est GFR (MDRD) Non-Af 241, BUN/Creatinine Ratio 7.6 L, Glucose 68 L, Calcium 8.3 L Radiography Diagnostic Testing: Radiology Impression Chest X-Ray 07/10/21 13:52 IMPRESSION: Bibasilar airspace disease which is decreased from the reference examination may represent improving edema or pneumonia. Right central venous catheter in good position. at 1649 Reported and signed by: Norbert Cruz MD Electronically Signed: Norbert Cruz MD at 16:48 EDT , D/C Instructions Discharge Diet: Light diet - advance as tolerated Discharge Activity: May Shower Lifting Restricted to (Lbs): 10 Additional Activity Instructions: Change bandages daily and as needed Call your doctor if your incision/area has: Continuous Slow Oozing, Sudden Increased Bleeding, Increased Pain/ Swelling, Increased Redness, Foul Smelling Discharge and Swelling at the incision site Cleanse incision/area with: Soap & Water Additional Instructions: See your doctor soon to discuss potassium replacement plan Please Follow Up With: Jesús Wood MD When: Please call to schedule 1 week follow up appointment. [phone] Meaningful Use Info Meaningful Use Diagnoses (Choose all that apply): None applicable Discharge Plan Admission Admit Date/Time: 07/10/21 14:24 Attending Provider: Jesús Wood Primary Care Provider: Doroteo Camacho Discharge Orders/Prescriptions Prescriptions: New potassium chloride [Klor-Con M20] 20 mEq Tablet,Er Particles/Crystals 20 meq PO BIDCM Qty: 30 RF: 0 Continued carvedilol 3.125 mg tablet 1.5625 mg PO BID RF: 0 turmeric root extract 500 mg capsule 500 mg PO DAILY RF: 0 multivitamin Tablet 1 tab PO DAILY RF: 0 cholecalciferol (vitamin D3) 25 mcg (1,000 unit) capsule 25 mcg PO DAILY RF: 0 Ocuvite Adult 50 Plus 250-5-1 mg capsule 1 cap PO DAILY RF: 0 aspirin 81 mg Tablet,Delayed Release (Dr/Ec) 81 mg PO DAILY RF: 0 acetaminophen [Tylenol] 325 mg Tablet 650 mg PO Q6H PRN (Reason: Pain (Scale Score 4-6)) RF: 0 atorvastatin 40 mg tablet 40 mg PO QHS Qty: 30 RF: 0 pantoprazole 40 mg Tablet,Delayed Release (Dr/Ec) 40 mg PO DAILY Qty: 30 RF: 0 zinc Tablet,Chewable 1 tab PO DAILY RF: 0 mirtazapine 15 mg tablet 15 mg PO QHS RF: 0 acidophilus-pectin, citrus 25 million cell -100 mg tablet 1 tab PO DAILY RF: 0 oxycodone 5 mg Tablet 5 - 10 mg PO Q4H PRN PRN (Reason: Pain Score 4-10) 5 Days Qty: 30 RF: 0 oxycodone 5 mg tablet 5 - 10 mg PO Q4H PRN (Reason: pain) 5 Days Qty: 30 RF: 0 Referrals / Follow Up: Doroteo Camacho MD [Primary Care Provider] - Disposition Disposition (needs filled in before D/C Order can be placed): Home, Self Care
--- NOTE | 2021-07-11 12:20 | CASEMGMT ---
AMIRA PRESTON Readmission Note Previous Admission: 07/04/21-07/08/21 Diagnosis: ostomy reversal DC Disposition: Home with family support Current Admission Presentation: surgical incision dehiscence with exposed bowel Pt presented to ER from home with dehiscence of surgical wound. Pt was seen in surgeon's office yesterday morning and some sutures removed. Pt taken back to surgery today. AMIRA PRESTON in to pt room. Pt and family in room. Pt denies any homegoing needs at this time. Pt states this was a little setback but they are all fixed up. DC PLAN: Home with family support.
--- NOTE | 2021-07-11 12:57 | WOUNDNOTE ---
Pt resting in bed awake. states surgery went well. and son present at the bedside. patient denies pain or nausea. patient ordered lunch. ice water given per request. Pt denies further needs.
[2021-07-11] MEDS: oxyCODONE 5 MG Tablet PO (14:25)
[2021-07-11] MEDS: 0.9% Saline Lock 10 ML Syringe IV (16:12)
[2021-07-11] MEDS: Potassium Chloride Oral Tablet 20 MEQ 40 MEQ PO (16:12)
== END 2021-07-11 16:40 | disposition home or self-care (01) | DRG 357 ==
LOC: SDC 12:27 → MS3 13:36
PROVIDERS: Anesthesiology; Admitting Provider Physician Assistant; PCP Family Medicine; Visit Provider Surgery
PROC: 0WJP0ZZ Inspection of Gastrointestinal Tract, Open Approach (ICD-10-PCS; CPT 49000; principal; 2021-07-11 09:30)
DX: K91.89 Other postprocedural complications and disorders of digestive system (principal); T81.32XA Disruption of internal operation (surgical) wound, not elsewhere classified, initial encounter; E78.5 Hyperlipidemia, unspecified; I10 Essential (primary) hypertension; E87.6 Hypokalemia; M19.90 Unspecified osteoarthritis, unspecified site; Z79.82 Long term (current) use of aspirin; Z79.899 Other long term (current) drug therapy; Z86.16 Personal history of COVID-19; Y84.9 Medical procedure, unspecified as the cause of abnormal reaction of the patient, or of later complication, without mention of misadventure at the time of the procedure
CPT/HCPCS: 36415; 71045; 80048; 83735; 84100; 84132; 85025; 93005; J7030; J7050; J7120; A4216; J2405